=== PATIENT | female | born 1945 | race Caucasian/White ===

== ENCOUNTER 2019-06-30 15:34 | Outpatient (CLI) | payer MEDICARE, OTHER, SELFPAY ==
--- NOTE | ~2019-06-30 | XR_ITS ---
EXAMINATION: XR hip BI 2V w AP pelvis DATE: 06/30/2019 16:11 INDICATION: Bilateral hip pain TECHNIQUE: AP view of the pelvis and two views of each hip were obtained. COMPARISON: 06/05/2016 FINDINGS: Bone alignment is normal. There is no fracture. There is mild left and moderate right hip o steoarthritis. Phleboliths are noted in the pelvis. There is moderate lower lumbar spondylosis. IMPRESSION: 1. Mild left and moderate right hip osteoarthritis without acute findings. Reviewed, dictated and finalized at location A.
== END 2019-06-30 15:35 | disposition home or self-care (01) ==
LOC: ANHIMG 15:39
PROVIDERS: PCP Family Medicine; Visit Provider Family Medicine
DX: M16.0 Bilateral primary osteoarthritis of hip (principal)
CPT/HCPCS: 73521

== ENCOUNTER 2019-07-24 11:47 | Observation (INO) | payer MEDICARE, OTHER, SELFPAY ==
[2019-07-24] VITALS (10 sets, daily range): BP systolic 104–166; BP diastolic 50–91; PULSE 58–82; RESP 16–20; TEMP 36–36.6; O2SAT 95–99; BMI 30.8
--- NOTE | ~2019-07-24 | CT_ITS ---
EXAMINATION: CTA brain carotid DATE: 07/24/2019 14:35 INDICATION: Confusion. TECHNIQUE: Computed tomographic angiography (CTA) of the head was performed without and with 100 mL O [id number] intravenous contrast. CTA of the neck was performed with intravenous contrast. Automated exposure control and iterative reconstruction technique were employed. The dose-length product was 1 521.89 mGy-cm. Maximum intensity projection and volume rendered 3D-reconstructions were created by tomas leon technologist on a separate workstation. COMPARISON: Head CT 02/16/2019, brain MRI 09/19/2018 FINDINGS: HEAD CTA: There is no intracranial hemorrhage, acute infarction, or abnormal intracranial mass lesion . The ventricles are normal in size. The paranasal sinuses are clear. The mastoid air cells are jc l. The orbits are normal. Left vertebral artery is dominant. There is no significant stenosis of basi lar artery or the right posterior cerebral arteries. There is no significant stenosis of the intracra nial internal carotid arteries or anterior or middle cerebral arteries. Anterior communicating artery is normal. Left posterior communicating artery is normal. A right posterior communicating artery is not identified. There is no aneurysm. NECK CTA: There is mild stenosis of proximal left subclavian artery. There is no significant stenosis of the vertebral arteries. There is mild plaque in the proximal internal carotid arteries. There is 0% stenosis of the proximal right internal carotid artery relative to normal distal artery lumen jessica meter (NASCET criteria). There is 0% stenosis of the proximal left internal carotid artery relative t o normal distal artery lumen diameter. There is moderate cervical spondylosis. IMPRESSION: 1. Normal brain. No aneurysm or significant intracranial arterial stenosis. 2. 0% stenosis of the proximal internal carotid arteries relative to normal distal artery lumen diame ters (NASCET criteria). Reviewed, dictated and finalized at location A. IMPRESSION: 1. Normal brain. No aneurysm or significant intracranial arterial stenosis. 2. 0% stenosis of the proximal internal carotid arteries relative to normal dis jose manuel artery lumen diameters (NASCET criteria).
--- NOTE | ~2019-07-24 | MR_ITS ---
EXAMINATION: MR brain/brain stem wo/w con DATE: 07/25/2019 13:13 INDICATION: Confusion. Cerebrovascular accident. TECHNIQUE: Magnetic resonance imaging (MRI) of the brain and brainstem was performed without with 15 mL MultiHance intravenous contrast. Sequences included sagittal and axial T1-weighted FSE, axial diff usion-weighted FS EPI, axial T2*-weighted GRE, axial T2-weighted FLAIR Propeller, and axial T2-weight ed Propeller. Postcontrast sequences included axial and coronal T1-weighted FSE. Apparent diffusion c oefficient (ADC) maps were created. COMPARISON: Brain MRI 09/19/2018 FINDINGS: There are scattered areas of nonspecific increased T2-weighted signal intensity in the cere bral white matter, which is within normal limits for the patient's age. There is no intracranial hemo rrhage, acute infarction, or abnormal intracranial mass lesion. The ventricles are normal in size. Th e mastoid air cells are normal. There is mild mucosal thickening in the ethmoid sinuses. The orbits a re normal. IMPRESSION: 1. Normal brain. Reviewed, dictated and finalized at location A. IMPRESSION: 1. Normal brain.
--- NOTE | 2019-07-24 13:26 | ECG_ITS ---
Measurements Intervals [place] Rate: 66 P: 47 TX: 154 QRS: -20 QRSD: 131 T: 22 QT: 410 QTc: 431 Interpretive Statements SINUS RHYTHM INTRAVENTRICULAR CONDUCTION DELAY LEFT VENTRICULAR HYPERTROPHY AND ST-T CHANGE BORDERLINE T WAVE ABNORMALITY- ANT/INF LEADS BORDERLINE ECG Electronically Signed On 07-24-2019 14:25:50 CDT by Abdoulaye Wiseman D.O.
--- NOTE | 2019-07-24 13:38 | ED.AMS ---
HPI - Altered Mental Status General Chief Complaint: Altered Mental Status Stated Complaint: not acting right Time Seen by Provider: 07/24/19 13:31 History of Present Illness HPI narrative: Patient presents with her sister for episode of confusion today. Started sometime before 11:00 as the sister waited outdoors for the patient to come out for an outing. When she did not come out the sister went into the garage where the patient was looking for something but could not identify what she was looking for. The sister reminded her that they were going strawberry picking and they got in the car. At the strawberry picking she also did not recognize where she was or understand what she was doing. Not until she got home that she come back to full consciousness. She had been worked up for TIA before with her neurologist Dr. Rogers. She has Parkinson's disease. She does not smoke drink or do drugs. He is not on any psychiatric medications. Related Data Home Medications Medication Instructions Recorded Confirmed Linzess 145 mcg PO DAILY 02/16/19 07/24/19 carbidopa-levodopa 1 tablet PO HS 02/16/19 07/24/19 carbidopa-levodopa 2 tablet PO 6XD 02/16/19 07/24/19 cholecalciferol (vitamin D3) 1,000 unit PO DAILY 02/16/19 07/24/19 [Vitamin D3] cyanocobalamin (vitamin B-12) 1,000 mcg IM MONTHLY 02/16/19 07/24/19 ropinirole 2 mg PO 6XD 02/16/19 07/24/19 sennosides [senna] 17.2 mg PO HS 02/17/19 07/24/19 midodrine 5 mg tablet 5 mg PO TID tablet 06/22/19 07/24/19 acetaminophen [Tylenol Extra 1,000 mg PO TID PRN 07/24/19 07/24/19 Strength] celecoxib 100 mg PO BID 07/24/19 07/24/19 Allergies Allergy/AdvReac Type Severity Reaction Status Date / Time No Known Allergies Allergy Verified 07/24/19 12:16 Review of Systems Review of Systems: Narrative: CONSTITUTIONAL: Denies fever, chills, or sweats. EYES: Denies visual changes, redness, or discharge. ENT: Denies rhinorrhea, congestion, sore throat, or otalgia. CARDIOVASCULAR: Denies chest pain, palpitations, or edema. RESPIRATORY: Denies cough or dyspnea. GASTROINTESTINAL: Denies abdominal pain, nausea, vomiting, or diarrhea. GENITOURINARY: Denies dysuria or hematuria. SKIN: Denies rash or itching. MUSCULOSKELETAL: Denies back pain, joint pain, or myalgia. NEUROLOGIC: Denies headache, numbness, or weakness. PSYCHIATRIC: Denies anxiety or depression. [facility] Past Medical History Medical History Anemia Anxiety Arthritis Congestive heart failure Diastolic Constipation Constipation by delayed colonic transit Cystocele Depression Gall bladder disease GERD (gastroesophageal reflux disease) History of GI bleed History of kidney stones History of rectal polyps Hx of hypotension Hx of Parkinson's disease Hypothyroidism IBS (irritable bowel syndrome) Orthostatic hypotension Osteoporosis Shaking palsy TIA (transient ischemic attack) UTI (urinary tract infection) Vaginal vault prolapse Surgical History Surgical History History of appendectomy History of bladder surgery History of bunionectomy DAVID History of cholecystectomy History of hysterectomy History of local excision of skin lesion History of rectal polypectomy Family History Family History (Updated 07/24/19 @ 18:45 by Monica Redding RN) Mother Carcinoma of colon Father Family history of coronary artery disease Sibling Family history of malignant neoplasm of breast Other Breast cancer Social History Social History Social History: The patient lives alone. She has been since 2007. Her daughter Indigo who is a nurse and lives in [place] is her durable power erisa attorney for healthcare. The patient is a full code. 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 She no longer has the rental propertie
[2019-07-24 13:40] LABS: Basophils Percent Auto 0.7 % (0.2-1.2); Eosinophils Percent Auto 0.2 % (0-4.4); Hematocrit 36.4 % (37.0-47.0); Hemoglobin 12.4 g/dL (12.0-15.0); Immature Granulocyte Absolute 0.01 K/mm3 (0.00-0.031); Immature Granulocyte Percent A 0.2 % (0-0.5); Lymphocytes Absolute Auto 0.82 K/mm3 (0.9-3.2); Lymphocytes Percent Auto 18.6 % (18.3-44.2); Mean Corpuscular HGB Conc 34.1 g/dl (32-36); Mean Corpuscular Hemoglobin 33.2 pg (26-34); Mean Corpuscular Volume 97.3 fl (80-100); Mean Platelet Volume 10.5 fl (7.4-10.4); Monocytes Absolute Auto 0.3 K/mm3 (0.1-0.6); Monocytes Percent Auto 6.6 % (2.6-8.5); Neutrophils Absolute Auto 3.2 K/mm3 (1.3-6.7); Neutrophils Percent Auto 73.7 % (45.5-73.1); Platelet Count Result 207 k/mm3 (150-375); Red Blood Count 3.74 M/mm3 (4.2-5.4); Red Cell Distribution Width 12.2 % (11.5-14.5); White Blood Count 4.4 K/mm3 (4.5-10.0)
[2019-07-24 13:44] LABS: Add Urine Microscopic? YES; Appearance Urine Clear (Clear); Bacteria Urine Trace /hpf; Bilirubin Urine Negative (Negative); Blood Urine 1+ (Negative); Color Urine Yellow (Yellow); Glucose Urine UA Negative (Negative); Ketones Urine Trace mg/dL (Negative); Leukocyte Esterase Ur 1+ LEU/UL (Negative); Mucus Urine Rare /lpf; Nitrate Urine Negative (Negative); Protein Urine Negative (Negative); Specific Grav Ur 1.011 (1.001-1.035); Squamous Epithelial Cell Urine Many /hpf (Few); Transitional Epi Cells Urine Rare /hpf (None Seen)
[2019-07-24 13:52] LABS: Albumin Level 4.3 g/dL (3.5-5.1); Alkaline Phosphatase 121 U/L (38-126); Aspartate Amino Transferase 16 U/L (14-36); Blood Urea Nitrogen 24 mg/dL (7-17); Calcium 9.3 mg/dL (8.4-10.2); Carbon Dioxide 30 mmol/L (22-30); Chloride 99 mmol/L (98-107); Estimated CRCL calculation 45 ml/min; Estimated Glomerular Filt Rate 55; Glucose 84 mg/dL (65-105); Potassium 3.7 mmol/L (3.4-5.0); Sodium 133 mmol/L (137-145)
[2019-07-24 14:03] LABS: Ethanol < 10 mg/dL (<10)
[2019-07-24 14:06] LABS: Alanine Aminotransferase < 6 U/L (4-35)
[2019-07-24 14:41] LABS: Amphetamine Screen Urine Negative (Negative); Barbiturate Screen Urine Negative (Negative); Benzodiazepines Screen Urine Negative (Negative); Cannabinoid Screen Urine Negative (Negative); Cocaine Screen Urine Negative (Negative); Methadone Screen Urine Negative (Negative); Opiate Screen Urine Negative (Negative); Phencyclidine Screen Urine Negative (Negative)
[2019-07-24] MEDS: ASPIRIN 81 MG CHEWABLE TABLET 324 MG PO (15:25)
--- NOTE | 2019-07-24 16:52 | PC.NURSE ---
pt had COVID testing completed 07/21/19. It was negative - informed lead warehouse associate
--- NOTE | 2019-07-24 17:20 | PC.NURSE ---
quan glass of water without coughing, gagging or choking. quan procedure well
--- NOTE | 2019-07-24 17:35 | PC.NURSE ---
This patient, Karyna Edmonds, was admitted to IMU Room 231-01. Patient/family oriented to hospital policies and general routines including ID bracelet, bed and alarms, visiting hours, pain management, procedures, bathroom and other care routines, personal items, smoking policy, room service/diet, and visiting hours. Valuables list has been completed. Information on how to activate the Rapid Response Team has been discussed. Patient/Family are encouraged to report perceived risks to care and to ask questions if they do not understand what they are told or what they should do.
--- NOTE | 2019-07-24 20:44 | PM.IMHP ---
H&P: HPI History of Present Illness Chief complaint: TIA Narrative: Karyna Edmonds is a 74 year old female the patient had a witnessed bout of confusion today. The patient started today around 11:00 a.m. when her sister was awaiting outside for her to come out for a hour ring. The patient did not come out in the sister went to the ground where the patient was looking for something but could not decide which she was looking for. She did remember. The sister reminder that they are gone stroke were picking in the get in the car. The patient and her sister went to the place where there specific strawberries but the placed was closed down and the patient did not recognize what they were doing a remember what they are doing. She was not her normal self. She has a history of Parkinson's and she has had TIAs in the past she is a smoker drinker do any drugs. She has not had any previous psychiatric medications. The patient does have tremors. The patient had a head and neck CTA which shows a normal brain no aneurysm or significant intracranial arterial stenosis. 0% stenosis in the internal carotid arteries. Was intact. Patient is back to baseline by time she came to the hospital. Patient was started on an aspirin. Neurology has been consulted and she sees Dr. Winston. It was suggested that the patient be admitted to the hospital overnight for possible TIA versus a stroke. Date of service 07/24/2019 patient was tested for COVID on 07/21/2019 which was found to be negative. Review of Systems Review of Systems: Narrative: All systems reviewed & are unremarkable except as noted in HPI and below Constitutional: Constitutional: Reports as per HPI and Reports no additional constitutional complaints Eyes: Eyes: Reports as per HPI and Reports no additional eye complaints ENT: Reports system reviewed and no additional complaints, except as documented and Reports Normal hearing present Cardiovascular: Cardiovascular: Reports no additional cardiovascular complaints Respiratory: Respiratory: Reports no additional respiratory complaints and Reports no additional respiratory complaints Gastrointestinal: Gastrointestinal: Reports as per HPI and Reports no additional gastrointestinal complaints Musculoskeletal: Musculoskeletal: Reports no additional musculoskeletal complaints Integumentary/Breasts: Skin/Breast: Reports system reviewed and no additional complaints, except as docu and Reports as per HPI Neurologic: Reports system reviewed and no additional complaints, except as documented, Reports as per HPI and Reports Normal hearing present Psychiatric: Psychiatric: Reports no additional psychiatric complaints and Reports as per HPI Endocrine: Endocrine: Reports no additional endocrine complaints Hematologic/Lymphatic: Hematologic/Lymphatic: Reports no additional hematologic/lymphatic complaints Allergic/Immunologic: Allergic/Immunologic: Reports no additional allergic/immunologic complaints [facility] Past Medical History Medical History Anemia Anxiety Arthritis Congestive heart failure Diastolic Constipation Constipation by delayed colonic transit Cystocele Depression Gall bladder disease GERD (gastroesophageal reflux disease) History of GI bleed History of kidney stones History of rectal polyps Hx of hypotension Hx of Parkinson's disease Hypothyroidism IBS (irritable bowel syndrome) Orthostatic hypotension Osteoporosis Shaking palsy TIA (transient ischemic attack) UTI (urinary tract infection) Vaginal vault prolapse Surgical History Surgical History History of appendectomy History of bladder surgery History of bunionectomy DAVID History of cholecystectomy History of hysterectomy History of local excision of skin lesion History of rectal polypectomy Family History Family History (Reviewed 07/24/19 @ 20:48 by Maryam Julian
[2019-07-25] VITALS (13 sets, daily range): BP systolic 103–139; BP diastolic 47–77; PULSE 60–78; RESP 18–20; TEMP 35.8–36.4; O2SAT 96–100
--- NOTE | 2019-07-25 | ECHO_ITS ---
Patient Info Name: Karyna Edmonds Age: 74 years : 1945 Gender: Female Ht: 63 in Wt: 170 lbs BSA: 1.88 m2 HR: 77 bpm BP: 132 / 66 mmHg Heart Rhythm: Sinus Rhythm Technical Quality: Good Exam Date: 07/25/2019 9:25 AM Exam Location: [facility] Pulmonary Patient Status: Inpatient Admit Date: 07/24/2019 Staff Ordering Physician: Maryam Wheeler NP Attenuator: Terrell Peraza RDCS Attending Provider: Lidia Canela PA-C Referring Physician: Summer CASEY; Exam Type: CA echo doppler color flow Study Info Indications R01.1 - Cardiac murmur, unspecified Complete two-dimensional, color flow and Doppler transthoracic echocardiogram is performed. Strain analysis performed. History/Risk Factors Murmur; possible TIA, HFpEF, HoTN, anemia. Summary 1. Normal LV size, moderate LVH, normal LV systolic function, EF 55-60%. GLS-16.7. Grade 1 diastolic dysfunction. Mild left atrial enlargement. Mild mitral annular calcification. Trace MR. Aortic valve sclerosis with mild stenosis, CLEMENTINA 2.1 cm2, mild aortic regurgitation. Trace TR, RVSP 35 mmHg. Left Ventricle Left ventricular chamber dimension is normal. Left ventricular systolic function is normal, estimated at 55-60%. There is moderately increased left ventricular wall thickness. Left ventricular septal wall motion is normal. The left ventricular diastolic function is grade I diastolic dysfunction. Right Ventricle Right ventricular chamber dimension is normal. Right ventricular systolic function is normal. Left Atria Left atrial chamber dimension is mildly enlarged. Right Atria Right atrial chamber dimension is normal. Aortic Valve There is mild aortic valve sclerosis. There is mild aortic valve stenosis with a peak velocity of 207 cm/s, mean gradient of 8 mmHg, and aortic valve area of 2.1 cm2. There is mild aortic valve regurgitation. Pulmonic Valve The pulmonic valve is normal. There is trace pulmonic regurgitation. Mitral Valve The mitral valve has normal leaflets. There is trace mitral valve regurgitation. The mitral valve annulus is mildly calcified. Tricuspid Valve The tricuspid valve leaflets are normal. There is trace tricuspid valve regurgitation. Mild pulmonary hypertension, estimated pulmonary arterial systolic pressure is 35 mmHg. Pericardium/Pleural The pericardium appears normal. There is no pericardial effusion. Inferior Vena Cava Normal inferior vena cava with >50% collapse upon inspiration consistent with Empty right atrial pressure, 5 mmHg. Aorta The aortic root size at the sinus of Valsalva is normal. The prox ascending aorta size is normal. Left Ventricular Outflow Tract Name Value Normal LVOT 2D LVOT Diameter 1.9 cm LVOT Doppler LVOT Peak Gradient 7 mmHg LVOT Mean Gradient 4 mmHg LVOT VTI 24 cm LVOT VTI/AV VTI Ratio 0.7 LVOT Stroke Volume 70 ml LVOT CO 5.3 l/min LVOT CI
[2019-07-25] MEDS: CARBIDOPA/LEVODOPA 25/100 MG TABLET 2 TABLET PO ×4 (05:54→15:38)
[2019-07-25] MEDS: LEVOTHYROXINE SODIUM 100 MCG TABLET PO (05:54)
[2019-07-25] MEDS: MIDODRINE HCL 2.5 MG TABLET 5 MG PO ×3 (08:51→15:38)
[2019-07-25] MEDS: PANTOPRAZOLE SOD SESQUIHYDRATE 20 MG TAB PO (08:52)
[2019-07-25] MEDS: CELECOXIB 100 MG CAPSULE PO (08:52)
[2019-07-25] MEDS: Linaclotide [Linzess] 145 MCG CAPSULE 145 EACH PO (08:52)
[2019-07-25] MEDS: FOLIC ACID 1 MG TABLET PO (08:53)
[2019-07-25] MEDS: CHOLECALCIFEROL 1,000 UNIT TABLET 1000 UNITS PO (08:53)
[2019-07-25 11:33] LABS: Blood Urea Nitrogen 18 mg/dL (7-17); Calcium 9.6 mg/dL (8.4-10.2); Carbon Dioxide 30 mmol/L (22-30); Chloride 100 mmol/L (98-107); Estimated CRCL calculation 44 ml/min; Estimated Glomerular Filt Rate 55; Glucose 110 mg/dL (65-105); Potassium 3.7 mmol/L (3.4-5.0); Sodium 137 mmol/L (137-145)
[2019-07-25 12:41] LABS: Folic Acid > 20.0 ng/mL (2.76->20)
[2019-07-25 12:45] LABS: Thyroid Stimulating Hormone Reflex 0.244 uIU/mL (0.465-4.68)
[2019-07-25] MEDS: ASPIRIN 81 MG CHEWABLE TABLET PO (15:30)
--- NOTE | 2019-07-25 16:55 | WPDNEURCNPN ---
Assessment and Plan Assessment and plan (1) Brain TIA: Code(s): G45.9 - Transient cerebral ischemic attack, unspecified Status: Acute (2) Orthostatic hypotension: Code(s): I95.1 - Orthostatic hypotension Status: Chronic (3) Hx of Parkinson's disease: Code(s): Z86.69 - Personal history of other diseases of the nervous system and sense organs Status: Chronic (4) Anemia: Code(s): D64.9 - Anemia, unspecified Status: Chronic (5) Anxiety: Code(s): F41.9 - Anxiety disorder, unspecified Status: Chronic (6) Hypothyroidism: Code(s): E03.9 - Hypothyroidism, unspecified Status: Chronic (7) Congestive heart failure: Code(s): I50.9 - Heart failure, unspecified Status: Chronic (8) Altered mental status: Code(s): R41.82 - Altered mental status, unspecified Status: Acute Additional Plan I discussed with her and her daughter at length about the etiology of the episodes and the differential diagnosis different options were discussed as for the treatment is concerned and I shared with her again and her daughter about the use of DBS for which the patient has been reluctant in the past in any event at this point I will cut back her carbidopa levodopa to 4 times a day and rest of the medications will stay the same and she will be in touch with my office and keep me posted All option risk in the benefits of the multiple medications on discussed with her in detail and she and her daughter understood it well Consult date: 07/25/19 Time Seen: 16:00 HPI: Karyna Edmonds is a 74 year old female the patient was admitted what sound like transient global amnesia which resolved in short brief time the workup has been unrevealing particularly the MRI brain is negative CTA of the brain the carotid is negative echocardiogram is unremarkable the patient is back to her baseline however showing signs of dyskinetic movements which is the most likely side effect from the carbidopa levodopa which I shared with her The patient denies any headache nausea vomiting chest pain shortness of breath fever chills sore throat Review of Systems Review of Systems: All systems reviewed & are unremarkable except as noted in HPI and below PMFSH Past Medical History Medical History Anemia Anxiety Arthritis Congestive heart failure Diastolic Constipation Constipation by delayed colonic transit Cystocele Depression Gall bladder disease GERD (gastroesophageal reflux disease) History of GI bleed History of kidney stones History of rectal polyps Hx of hypotension Hx of Parkinson's disease Hypothyroidism IBS (irritable bowel syndrome) Orthostatic hypotension Osteoporosis Shaking palsy TIA (transient ischemic attack) UTI (urinary tract infection) Vaginal vault prolapse Surgical History Surgical History History of appendectomy History of bladder surgery History of bunionectomy DAVID History of cholecystectomy History of hysterectomy History of local excision of skin lesion History of rectal polypectomy Family History Family History Mother Carcinoma of colon Father Family history of coronary artery disease Sibling Family history of malignant neoplasm of breast Other Breast cancer Social History Social History Social History: The patient lives alone. She has been since 2007. Her daughter Indigo who is a nurse and lives in [place] is her durable power senior trial attorney for healthcare. The patient is a full code. 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 Lifelong nonsmoker. No alcohol or illicit drugs. Smoking status: Never smoker Alcohol intake: never [place]
--- NOTE | 2019-07-25 17:43 | PM.DS ---
DS: Diagnosis Admitting Diagnosis Admitting Diagnosis: Transient cerebral ischemic attack, unspecified Discharge Diagnosis (1) Brain TIA: Code(s): G45.9 - Transient cerebral ischemic attack, unspecified Status: Acute Assessment and Plan: The patient was started on aspirin. Neurology has been consulted. Patient has Parkinson's which may be this is part of it. (2) Hx of Parkinson's disease: Code(s): Z86.69 - Personal history of other diseases of the nervous system and sense organs Status: Chronic Assessment and Plan: Continue with carbidopa levodopa. (3) Orthostatic hypotension: Code(s): I95.1 - Orthostatic hypotension Status: Chronic Assessment and Plan: The patient is on midodrine. Continue with this. (4) Anemia: Code(s): D64.9 - Anemia, unspecified Status: Chronic Assessment and Plan: Continue with folic acid. (5) Anxiety: Code(s): F41.9 - Anxiety disorder, unspecified Status: Chronic Assessment and Plan: P.r.n. Ativan. (6) Hypothyroidism: Code(s): E03.9 - Hypothyroidism, unspecified Status: Chronic Assessment and Plan: Continue with levothyroxine. (7) Congestive heart failure: Code(s): I50.9 - Heart failure, unspecified Status: Chronic Assessment and Plan: Echo has been ordered. Last EF I saw was under stress test 54%. Patient is not on any diuretics. (8) Syncope: Code(s): R55 - Syncope and collapse Status: Acute Assessment and Plan: History of syncope due to orthostatic blood pressure. (9) Altered mental status: Code(s): R41.82 - Altered mental status, unspecified Status: Acute Assessment and Plan: Could possibly be from Parkinson's or possible TIA versus CVA patient will continue with workup tomorrow. She is on aspirin at this time. DS: Summary Hospital Course Reason for hospitalization: Patient is a 74-year-old woman with a history of Parkinson's disease, who presented to the emergency department with bouts of confusion prior to arrival. Initial vitals Showed temperature of 97.3?, blood pressure 131/78, respiratory rate 16, heart rate 66, oxygen saturation 99% on room air. Labs showed slight neutropenia at 4.4 which is her baseline, CMP showed hyponatremia at 1:33 a.m., creatinine 1.0, BUN at 24 otherwise normal. Patient's TSH was slightly low at 0.244 but her free T and total T3 were normal. Normal vitamin B12, normal folic acid. CTA head and neck showed normal brain, no aneurysm or significant intracranial artery stenosis. 0% stenosis of the proximal internal carotid arteries relative to normal distal artery lumen diameters (NASCET criteria). The patient was admitted into the hospital for a neurology consult and further evaluation and workup for TIA versus CVA. Patient's echocardiogram showed normal ventricular systolic function with an EF of 55-60. Moderately increased LV wall thickness. LV diastolic grade 1. No other acute abnormality. MRI showed normal brain. Dr. Rogers the patient's neurologist evaluated the patient and feels that her symptoms could be from too much carbidopa levodopa and he will decrease her dosing from 6 times a day to 4 times a day. He will not adjust any other medications at this time and otherwise feels she is at her baseline and stable for discharge. The patient understands and agrees with the plan all questions answered. Status at Discharge Cognitive/behavioral status at discharge: Stable, improved. Time Spent with Patient Time attestation: Total time spent providing and/or coordinating discharge services: Time spent: Greater than 30 minutes Exam Narrative: Exam Narrative: General: 74-year-old woman sitting up on the side of the bed. She is sitting still while getting her blood pressure taken, but once she is sitting on her own she begins to become fidgity. A
[2019-07-25 19:42] LABS: Free T4 Free Thyroxine Reflex 1.54 ng/dL (0.78-2.19)
[2019-07-25 21:49] LABS: Total Triiodothyronine (T3) 1.23 NG/ML (0.97-1.69)
== END 2019-07-25 16:35 | disposition home or self-care (01) ==
LOC: ANHED 15:40 → ANHIMU 07-25 00:09
PROVIDERS: Admitting Provider Hospitalist; Emergency Provider Emergency Medicine; PCP Family Medicine; Visit Provider Physician Assistant
DX: G45.9 Transient cerebral ischemic attack, unspecified (principal); G20 Parkinson's disease; I95.1 Orthostatic hypotension; D64.9 Anemia, unspecified; F41.9 Anxiety disorder, unspecified; E03.9 Hypothyroidism, unspecified; I50.9 Heart failure, unspecified; R41.82 Altered mental status, unspecified; K21.9 Gastro-esophageal reflux disease without esophagitis; K58.9 Irritable bowel syndrome, unspecified; Z79.899 Other long term (current) drug therapy
CPT/HCPCS: 36415; 51701; 70496; 70498; 70553; 80048; 80053; 80307; 81001; 82607; 82746; 84439; 84443; 84480; 85025; 93005; 93306; 99285; A9270; A9577; G0378; Q9967

== ENCOUNTER 2019-10-05 12:39 | Outpatient (CLI) | payer MEDICARE, OTHER, SELFPAY ==
--- NOTE | ~2019-10-05 | MR_ITS ---
EXAMINATION: MR brain/brain stem wo/w con EXAM DATE: 10/05/2019 14:14 INDICATION: Cervicalgia, paresthesia of skin. Tinnitus. Cervicalgia. TECHNIQUE: Magnetic resonance imaging (MRI) of the brain/brain stem obtained without contrast. Sagit jose manuel T1, axial diffusion, gradient echo (T2*), T1, T2, FLAIR sequences obtained. Patient was then inj ected with 15 cc intravenous Multihance contrast. Axial and coronal postcontrast T1 weighted sequence s obtained. There is no prior study for comparison. FINDINGS: There are no areas of restricted diffusion to suggest acute infarction. There is no acute hemorrhage seen on the T2*, a hemosiderin sensitive sequence. No intraparenchymal brain mass. The ve ntricles are normal in size. There are no extra-axial collections. Flow voids are seen in the cereb ral arteries on the T2-weighted sequences consistent with their expected patency. The orbits are unr emarkable. Soft tissue is unremarkable. IMPRESSION: 1. Unremarkable brain MRI examination. Reviewed, dictated and finalized at location A.
--- NOTE | ~2019-10-05 | MR_ITS ---
EXAMINATION: MR cervical spine wo con DATE: 10/05/2019 14:05 INDICATION: Neck pain. TECHNIQUE: Magnetic resonance imaging (MRI) of the cervical spine was performed without intravenous c ontrast. Sequences included sagittal T2-weighted FSE, sagittal T2-weighted FS FSE, sagittal T1-weight ed FSE, axial MERGE, and axial T2-weighted FSE. COMPARISON: Cervical spine MRI 04/29/2018 FINDINGS: There is 2 mm retrolisthesis of C4 on C5. Vertebral body heights are normal. There is moder ately decreased disc height from C4-C5 through C6-C7. The spinal cord signal intensity is normal. The following disc levels are specifically discussed: C2-C3: The disc does not extend beyond the endplate margin. There is no uncovertebral joint osteoarth ritis. There is moderate right and mild left facet joint osteoarthritis. There is no neural foraminal stenosis. There is no central canal stenosis. C3-C4: The disc does not extend beyond the endplate margin. There is mild left uncovertebral joint os teoarthritis. There is severe right and moderate left facet joint osteoarthritis. There is no neural foraminal stenosis. There is no central canal stenosis. C4-C5: The disc is bulging. There is moderate right and severe left uncovertebral joint osteoarthriti s. There is moderate right and severe left facet joint osteoarthritis. There is mild right and modera te left neural foraminal stenosis. There is mild central canal stenosis. C5-C6: The disc is bulging. There is moderate bilateral uncovertebral joint osteoarthritis. There is moderate bilateral facet joint osteoarthritis. There is mild bilateral neural foraminal stenosis. The re is mild central canal stenosis. C6-C7: The disc is bulging. There is mild right and moderate left uncovertebral joint osteoarthritis. There is no facet joint osteoarthritis. There is mild left neural foraminal stenosis. There is mild central canal stenosis. C7-T1: The disc does not extend beyond the endplate margin. There is no uncovertebral joint osteoarth ritis. There is mild bilateral facet joint osteoarthritis. There is mild left neural foraminal stenos is. There is no central canal stenosis. IMPRESSION: 1. Moderate cervical spondylosis, stable from 04/29/2018. Reviewed, dictated and finalized at location A.
[2019-10-05 13:32] LABS: Estimated Glomerular Filt Rate 49
== END 2019-10-05 12:40 | disposition home or self-care (01) ==
PROVIDERS: PCP Family Medicine; Visit Provider Psychiatry & Neurology Neurology
DX: R20.2 Paresthesia of skin (principal); M47.892 Other spondylosis, cervical region
CPT/HCPCS: 36415; 70553; 72141; A9577

== ENCOUNTER 2020-01-21 17:13 | Emergency (ER) | payer MEDICARE, OTHER, SELFPAY ==
--- NOTE | ~2020-01-21 | CT_ITS ---
EXAMINATION: CT abdomen pelvis w con INDICATION: Epigastric abdominal pain TECHNIQUE: Computed tomographic images of the abdomen and pelvis were obtained after the administrati on of 100 cc of Omnipaque 350 intravenous contrast. The dose-length product (DLP) was 562.40 mGy-cm. Automated exposure control and iterative reconstruction technique were employed. COMPARISON: 09/18/2018 FINDINGS: Minimal dependent atelectasis is present in the lung bases. The heart size is normal. The g allbladder is surgically absent. There is mild enlargement of the common bile duct and central intrah epatic ducts which is likely due to post cholecystectomy state. Punctate calcifications in an otherwi se normal spleen likely represent healed granulomatous disease. Punctate calcifications in an otherwi se normal spleen likely represent healed granulomatous disease. The liver, pancreas, adrenal glands, and right kidney are normal. There is a 4 mm nonobstructing stone of the left kidney. No pathological ly enlarged abdominal or pelvic lymph nodes are identified. There is no free intraperitoneal gas or e vidence of bowel obstruction. There are changes of right hemicolectomy. A large volume of colonic sto ol is present. There is moderate lumbar spondylosis. IMPRESSION: 1. No CT correlate for the patient's symptoms. 2. Constipation. 3. Nonobstructing left nephrolithiasis. Reviewed, dictated and finalized at location A. ECTOR MISSILE
[2020-01-21 17:15] VITALS: BP 169/85; PULSE 80; RESP 20; TEMP 36.6; O2SAT 97
[2020-01-21 17:34] LABS: Basophils Percent Auto 0.6 % (0.2-1.2); Eosinophils Absolute Auto 0.1 K/mm3 (0-0.3); Eosinophils Percent Auto 0.9 % (0-4.4); Hematocrit 42.8 % (37.0-47.0); Hemoglobin 14.6 g/dL (12.0-15.0); Immature Granulocyte Absolute 0.01 K/mm3 (0.00-0.031); Immature Granulocyte Percent A 0.2 % (0-0.5); Lymphocytes Absolute Auto 1.77 K/mm3 (0.9-3.2); Lymphocytes Percent Auto 33.2 % (18.3-44.2); Mean Corpuscular HGB Conc 34.1 g/dl (32-36); Mean Corpuscular Hemoglobin 33.9 pg (26-34); Mean Corpuscular Volume 99.3 fl (80-100); Mean Platelet Volume 9.7 fl (7.4-10.4); Monocytes Absolute Auto 0.4 K/mm3 (0.1-0.6); Monocytes Percent Auto 6.6 % (2.6-8.5); Neutrophils Absolute Auto 3.1 K/mm3 (1.3-6.7); Neutrophils Percent Auto 58.5 % (45.5-73.1); Platelet Count Result 184 k/mm3 (150-375); Red Blood Count 4.31 M/mm3 (4.2-5.4); Red Cell Distribution Width 12.5 % (11.5-14.5); White Blood Count 5.3 K/mm3 (4.5-10.0)
[2020-01-21 17:54] LABS: Add Urine Microscopic? YES; Appearance Urine Clear (Clear); Bacteria Urine Trace /hpf; Bilirubin Urine Negative (Negative); Blood Urine 1+ (Negative); Color Urine Yellow (Yellow); Glucose Urine UA Negative (Negative); Ketones Urine Negative (Negative); Leukocyte Esterase Ur Trace LEU/UL (Negative); Nitrate Urine Negative (Negative); Protein Urine Negative (Negative); RBC Urine 0-2 /hpf (0-2); Specific Grav Ur 1.012 (1.001-1.035); Squamous Epithelial Cell Urine Rare /hpf (Few); Urobilinogen Urine Negative mg/dL (<2.0); WBC Urine 0-3 /hpf
[2020-01-21 17:55] LABS: Albumin Level 4.9 g/dL (3.5-5.1); Alkaline Phosphatase 135 U/L (38-126); Anion Gap 10 mmol/L (8-16); Aspartate Amino Transferase 20 U/L (14-36); Bilirubin,Total 0.8 mg/dL (0.2-1.3); Blood Urea Nitrogen 20 mg/dL (7-17); Calcium 9.9 mg/dL (8.4-10.2); Carbon Dioxide 33 mmol/L (22-30); Chloride 101 mmol/L (98-107); Estimated CRCL calculation 47 ml/min; Estimated Glomerular Filt Rate > 60; Glucose 119 mg/dL (65-105); Lipase 61 U/L (23-300); Potassium 3.1 mmol/L (3.4-5.0); Sodium 144 mmol/L (137-145)
--- NOTE | 2020-01-21 18:12 | ED.ABDPAIN ---
HPI - Abdominal Pain General Chief Complaint: Abdominal Pain Stated Complaint: abd pain Time Seen by Provider: 01/21/20 17:31 Source: patient Mode of arrival: ambulatory Limitations: no limitations History of Present Illness HPI narrative: Patient is a 74-year-old female complaining of epigastric pain, 6 out of 10, currently denies any pain, burning, nonradiating, worse after eating x3 days. Patient also admits to nausea but denies any vomiting. Denies any diarrhea, fever or urinary symptoms. Patient denies any chest pain or shortness of breath. Patient denies back pain. Related Data Home Medications Medication Instructions Recorded Confirmed Linzess 145 mcg PO DAILY 02/16/19 12/13/19 carbidopa-levodopa 1 tablet PO HS 02/16/19 12/13/19 cholecalciferol (vitamin D3) 1,000 unit PO DAILY 02/16/19 12/13/19 [Vitamin D3] cyanocobalamin (vitamin B-12) 1,000 mcg IM MONTHLY 02/16/19 12/13/19 ropinirole 2 mg PO 6XD 02/16/19 12/13/19 sennosides [senna] 17.2 mg PO HS 02/17/19 12/13/19 midodrine 5 mg tablet 5 mg PO TID tablet 06/22/19 12/13/19 acetaminophen [Tylenol Extra 1,000 mg PO TID PRN 07/24/19 12/13/19 Strength] amantadine HCl 100 mg capsule 100 mg PO ONCE cap 12/13/19 12/13/19 clonazepam 0.5 mg tablet 0.5 mg PO DAILY 12/13/19 12/13/19 docusate sodium 100 mg capsule 100 mg PO DAILY 12/13/19 12/13/19 Allergies Allergy/AdvReac Type Severity Reaction Status Date / Time No Known Allergies Allergy Verified 01/21/20 17:36 Review of Systems Review of Systems: All systems reviewed & are unremarkable except as noted in HPI and below Constitutional: Constitutional: Denies body ache(s), Denies chills, Denies excessive sweating, Denies fatigue, Denies fever(s), Denies headache(s), Denies lethargy, Denies malaise, Denies weakness and Denies weight loss Eyes: Eyes: Denies blurry vision, Denies change in vision and Denies loss of vision ENT: Denies dizziness, Denies ear discharge, Denies headache(s), Denies lip swelling, Denies epistaxis, Denies nasal congestion, Denies neck pain, Denies throat swelling and Denies tongue swelling Cardiovascular: Cardiovascular: Denies chest pain, Denies chest pain at rest, Denies chest pain with activity, Denies diaphoresis, Denies rapid heart rate, Denies edema, Denies irregular heart rhythm, Denies lightheadedness, Denies palpitations, Denies dyspnea and Denies dyspnea on exertion Respiratory: Respiratory: Denies chest congestion, Denies cough, Denies hemoptysis, Denies dyspnea and Denies dyspnea on exertion Gastrointestinal: Gastrointestinal: Denies melena, Denies hematochezia, Denies diarrhea, Denies vomiting and Denies hematemesis Musculoskeletal: Musculoskeletal: Denies abnormal gait, Denies deformity, Denies joint swelling, Denies limited range of motion, Denies neck pain and Denies numbness Neurologic: Denies Abnormal speech present, Denies abnormal gait, Denies confusion, Denies dizziness, Denies headache(s), Denies focal weakness, Denies loss of vision, Denies numbness, Denies Other visual disturbances, Denies Sensory deficit (Neuro) and Denies weakness Psychiatric: Psychiatric: Denies confusion, Denies depression, Denies auditory hallucinations, Denies homicidal ideation and Denies suicidal ideation Endocrine: Endocrine: Denies cold intolerance, Denies excessive sweating, Denies fatigue, Denies heat intolerance and Denies palpitations Hematologic/Lymphatic: Hematologic/Lymphatic: Denies easy bleeding and Denies easy bruising Allergic/Immunologic: Allergic/Immunologic: Denies lip swelling, Denies throat swelling and Denies tongue swelling [facility] Past Medical History Medical History (Updated 01/21/20 @ 19:56 by Norm Zacarias MD) Anemia Anxiety Arthritis Congestive heart failure Diastolic Constipation Constipation by delayed colonic transit Cystocele Depression Gall bladder disease GERD (gastroesophageal reflux disease) History of GI bleed History of kidney stones History of r
[2020-01-21 18:16] LABS: Alanine Aminotransferase < 6 U/L (4-35)
[2020-01-21] MEDS: FAMOTIDINE 20 MG/2 ML VIAL IV PUSH (18:21)
[2020-01-21] MEDS: ONDANSETRON INJ 4 MG/2 ML VIAL IV PUSH (18:21)
[2020-01-21] MEDS: SODIUM CHLORIDE 0.9% IV 1,000 ML 999 ML IV CONT (18:21)
[2020-01-21 19:42] VITALS: BP 176/95; PULSE 73; RESP 19; O2SAT 97
--- NOTE | 2020-01-21 19:47 | ECG_ITS ---
Measurements Intervals Borden Rate: 72 P: 49 DC: 139 QRS: -21 QRSD: 141 T: 31 QT: 381 QTc: 418 Interpretive Statements SINUS RHYTHM INTRAVENTRICULAR CONDUCTION DELAY LEFT VENTRICULAR HYPERTROPHY WITH ST-T CHANGE MINIMAL Q WAVES- HIGH LATERAL LEADS BASELINE WANDER- V2 BORDERLINE ECG Electronically Signed On 01-22-2020 8:41:32 [employer] by Abdoulaye Wiseman D.O.
[2020-01-21 20:21] VITALS: BP 177/88; PULSE 74; RESP 18; O2SAT 99
[2020-01-21] MEDS: POTASSIUM CHLORIDE 20 MEQ PACKET (FOR LIQUID) 40 MEQ PO (20:21)
== END 2020-01-21 20:23 | disposition home or self-care (01) ==
PROVIDERS: Emergency Medicine; Emergency Provider Emergency Medicine; PCP Family Medicine
DX: K29.00 Acute gastritis without bleeding (principal); G20 Parkinson's disease; Z86.2 Personal history of diseases of the blood and blood-forming organs and certain disorders involving the immune mechanism; K21.9 Gastro-esophageal reflux disease without esophagitis; Z87.442 Personal history of urinary calculi; Z87.19 Personal history of other diseases of the digestive system; E03.9 Hypothyroidism, unspecified; K58.9 Irritable bowel syndrome, unspecified; M81.0 Age-related osteoporosis without current pathological fracture; Z86.73 Personal history of transient ischemic attack (TIA), and cerebral infarction without residual deficits; Z87.440 Personal history of urinary (tract) infections; N20.0 Calculus of kidney; K59.00 Constipation, unspecified; I45.9 Conduction disorder, unspecified; I51.7 Cardiomegaly
CPT/HCPCS: 36415; 74177; 80053; 81001; 83690; 85025; 93005; 96361; 96374; 96375; 99284; A9270; J2405; J7030; Q9967

== ENCOUNTER 2020-01-31 09:00 | Outpatient (RCR) | payer MEDICARE, OTHER, SELFPAY ==
--- NOTE | 2019-11-28 09:45 | LSVTBIG ---
OCCUPATIONAL THERAPY EVALUATION REPORT & DISCHARGE 11/28/2019 Thank you for referring Karyna Edmonds to [facility].?As described below, no skilled OT indicated at this time. Please review, sign, date and return this D/C Note ANDRES. I agree with and certify that the following plan of care is medically necessary. Referring Physician Date Referring Provider: Zak Mathews, KELLEN-STELLA *[facility] BIG Evaluation Therapy Discipline Therapy Discipline Therapy Discipline Occupational Therapy Therapy Assessment Status Assessment Status Assessment Status Evaluation Outpatient Past Medical History Neurological History Hx Parkinson's Disease Yes Cardiovascular History Hx Other Cardiac Disorders Yes: Hypotension Respiratory History Hx Respiratory Disorders No Significant History Gastrointestinal History Hx Appendectomy Yes Hx Other Gastrointestinal Disorders Yes: Constipation Genitourinary History Hx Bladder Surgery Yes Musculoskeletal History Hx Musculoskeletal Disorders No Significant History Hematological History Hx Hematological Disorders No Significant History Endocrine History Hx Hypothyroidism Yes HEENT History Hx Other HEENT Disorders Yes: Glasses Integumentary History Hx Skin Disorders No Significant History Reproductive History Hx Reproductive Disorders No Significant History Psychosocial History Hx Psychiatric Disorders No Significant History Pain History History of Any Previous or Ongoing No Significant History Instance of Pain Anesthesia History Hx Anesthesia Reactions No Significant History Evaluation Information Problem Diagnosis PD Onset about 6 years ago Subjective Information Karyna presents to Query Text:As Reported By Patient/ outpatient therapy for Family evaluation and treatment orders with the diagnosis of Parkinson's. She states that functionally she has had no decline in her independence with ADLs, household tasks, or fine motor tasks. She notes her biggest barriers to feeling well are neck pain and some balance changes. She reports that she used to go to the [facility] for aquatic classes and group classes for people with PD, which have stopped due to COVID. Pain Assessment Timing of Pain Assessment Timing of Pain Assessment Assessment Pain Scale Pain Scale Used Numeric (1 - 10) Self Report Pain Assessment Neck Reported
--- NOTE | 2019-11-28 11:40 | LSVTBIG ---
PHYSICAL THERAPY EVALUATION AND PLAN OF CARE Thank you for referring Karyna Edmonds to [facility].? The patient is scheduled to be seen for therapy? 2x/week for 4 weeks. Please review, sign, date and return this plan of care ANDRES. I agree with and certify that the following plan of care is medically necessary. Referring Physician Date Evaluation Outpatient Past Medical History Neurological History Hx Parkinson's Disease Yes Cardiovascular History Hx Other Cardiac Disorders Yes: Hypotension Respiratory History Hx Respiratory Disorders No Significant History Gastrointestinal History Hx Appendectomy Yes Hx Other Gastrointestinal Disorders Yes: Constipation Genitourinary History Hx Bladder Surgery Yes Musculoskeletal History Diagnosis PD Onset about 6 years ago Subjective Information Karyna presents to Query Text:As Reported By Patient/ outpatient therapy for Family evaluation and treatment orders with the diagnosis of Parkinson's. She states that functionally she has had no decline in her independence with ADLs, household tasks, or fine motor tasks. She notes her biggest barriers to feeling well are neck pain and some balance changes. She reports that she used to go to the [facility] for aquatic classes and group classes for people with PD, which have stopped due to COVID. She really felt as though walking in the pool was really beneficial and if that is an option she would like to continue. Also c/o of neck pain with diagnosis of arthritis in the neck. She did therapy for the neck several months ago and felt the greatest benefit was the massage and ultrasound. Self Report Pain Assessment Neck Reported Pain Level 0 Parkinson's Related History Parkinson's Related History Diagnosis/Stage Date Of Initial She began noticing temors Diagnosis about 6 years ago What Were Your Initial Symptoms Of tremors, loss of smell Parkinson's Disease? Do You Have A Tremor? Yes Describe Tremors In bilateral UEs, none at rest , these have gotten better
--- NOTE | 2019-11-28 11:56 | STOPEVAL ---
SPEECH THERAPY INITIAL EVALUATION AND DISCHARGE: Thank you for referring Karyna Edmonds to [facility] Upon completion of the evaluation, it was determined that the patient's speech, voicing, and swallowing is within functional limits; therefore no further ST is warranted at this time. I agree with the following discharge. Referring Physician Date Attending Provider: PHYSICIAN NOT ON STAFF *ST Outpatient Evaluation/Discharge Start: 11/28/19 10:55 Freq: Status: Active Protocol: Document 11/28/19 09:30 BECHERERT (Rec: 11/28/19 11:09 BECHERERT [email or web address]) Therapy Assessment Status Assessment Status Assessment Status Evaluation Outpatient Past Medical History Past Medical History Source of Past Medical History Patient Neurological History Hx Parkinson's Disease Yes: x 6 yrs Cardiovascular History Hx Other Cardiac Disorders Yes: Hypotension Respiratory History Hx Respiratory Disorders No Significant History Gastrointestinal History Hx Appendectomy Yes Hx Other Gastrointestinal Disorders Yes: Constipation Genitourinary History Hx Bladder Surgery Yes Musculoskeletal History Hx Musculoskeletal Disorders No Significant History Hematological History Hx Hematological Disorders No Significant History Endocrine History Hx Hypothyroidism Yes HEENT History Hx Other HEENT Disorders Yes: Glasses Integumentary History Hx Skin Disorders No Significant History Reproductive History Hx Reproductive Disorders No Significant History Psychosocial History Hx Psychiatric Disorders No Significant History Pain History History of Any Previous or Ongoing No Significant History Instance of Pain Anesthesia History Hx Anesthesia Reactions No Significant History Prior Level of Function Activity Level (Last 3 Months) Occupation retired Functional Cognition (Planning, Shopping Independent , Taking Medications) Cooking Yes Cleaning Yes Laundry Yes Shopping Yes Driving Yes Medications Home Meds (Include: OTC, RX, Vitamins, Sinemet 25/100 1 x 4x/day Herbals, Dose, Route,and Frequency) Sinemet 50/200 CR (1) HS; pt Query Text:Home Med Entries Will No manages her own medications Longer Recall From Past Visits. Home without difficulty; has Meds Must Be Re-entered With Each Visit. developed a very efficent system Home Setting Living Situation Alone [employer] Responsibilities Comment pt is temporarily taking care of her sister who has a broken leg but she will soon be returning to her own home Prior Swallow Level Prior Intake Method Oral
--- NOTE | 2019-12-05 09:58 | PCPTNOTE ---
Patient called & cancelled scheduled appointment this date due to not feeling well.
--- NOTE | 2019-12-27 10:57 | LSVTBIG ---
PHYSICAL THERAPY PLAN OF CARE UPDATE Thank you for referring Karyna Edmonds to [facility].? The patient is scheduled to be seen for therapy? 1x/week for 4-8 weeks. Please review, sign, date and return this plan of care ANDRES. I agree with and certify that the following plan of care is medically necessary. Referring Physician Date Progress Diagnosis PD Onset about 6 years ago Subjective Information Karyna states she is feeling Query Text:As Reported By Patient/ sluggish today. She has had Family company at her house and her sister is living with her. 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 From Floor Independent/Safe Look Behind Shoulder - Standing Shifts Weight Well Turning 360 Degrees Turns Bilateral, < 4 secs Unsupported Stance, Alternating Feet on (I)- 8 Steps in > 20 secs Stair Unsupported Tandem Stance Achieves Tandem Unilateral Leg Stance Lifts Leg/Holds > 3 secs DOSS Balance Evaluation Total Score (/56 52 points) Comments c/o neck pain with rotational activities: right cervical rotation = 50deg, left cervical rotation = 50deg - no pain; bilateral shoulder elevation: 150deg with limited thoracic mobility/extension; left shoulder ER/IR symmetrical and WNL - left IR mild tenderness to reaching behind back (putting on bra) Time Up Go (TUG) Timed Up and Go Test (TUG) (Seconds) 6 Assistive Devices None 5 Time Sit to Stand Time in Seconds 8.5 Gait Assessment 6 Minute Walk Total Distance (feet) 1,500 6 Minute Walk Gait Speed Score (feet/ 4.16 second) 6 Minute Gait Comments LE strength: grossly 4+/5 throughout except hip abduction: 3+/5 PT Clinical Summary Karyna is a 74 yo female presenting to outpatient
--- NOTE | 2020-01-16 09:46 | PCPTNOTE ---
Patient called & cancelled scheduled appointment this date due to possible exposure to covid.
--- NOTE | 2020-01-31 09:40 | LSVTBIG ---
PHYSICAL THERAPY DISCHARGE NOTE Thank you for referring Karyna Edmonds to [facility].? Please review, sign, date and return this plan of care ANDRES. I agree with and certify that the following plan of care is medically necessary. Referring Physician Date Discharge Diagnosis PD Onset about 6 years ago Subjective Information Karyna states she is feeling Query Text:As Reported By Patient/ sluggish today. She has had Family company at her house and her sister is living with her. 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 Object From Floor Independent/Safe Look Behind Shoulder - Standing Shifts Weight Well Turning 360 Degrees Turns Bilateral, < 4 secs Unsupported Stance, Alternating Feet on (I)- 8 Steps in 20 secs Stair Unsupported Tandem Stance Achieves Tandem Unilateral Leg Stance Lifts Leg/Holds 5-10 secs DOSS Balance Evaluation Total Score (/56 55 points) Comments c/o neck pain with rotational activities: right cervical rotation = 60deg, left cervical rotation = 60deg - no pain; bilateral shoulder elevation: 155deg with limited thoracic mobility/extension; left shoulder ER/IR symmetrical and WNL Time Up Go (TUG) Timed Up and Go Test (TUG) (Seconds) 6 Assistive Devices None 5 Time Sit to Stand Time in Seconds 8.5 Gait Assessment 2 Minute Walk Total Distance Walked (feet) 484 2 Minute Walk Gait Speed Score (feet/ 4.03 second) 2 Minute Walk Test Comments 1month ago = 4.16ft/second Stair Climbing Assessment Stair Climbing Assessment Stair Climbing Assistive Devices Railings Number of Steps Climbed (Steps) 4 Number of Repetitions (Repetitions) 2 Technique Alternating Steps Stair Climbing Direction Both Up and Down Stair Climbing Ability Independent Cues Needed For Stair Climbing None PT Clinical Summary Karyna
== END 2020-02-01 08:47 | disposition home or self-care (01) ==
LOC: ANHPT 09:00
PROVIDERS: PCP Family Medicine
DX: G20 Parkinson's disease (principal)
CPT/HCPCS: 92524; 92610; 97110; 97140; 97162; 97165

== ENCOUNTER → 2020-04-27 00:58 | Outpatient (CLI) | payer MEDICARE, OTHER, SELFPAY ==
[2020-04-27 19:49] LABS: SARS-CoV-2 RNA PCR Negative
== END ==
PROVIDERS: PCP Physician Assistant; Visit Provider Internal Medicine Gastroenterology
DX: Z01.812 Encounter for preprocedural laboratory examination (principal); Z20.822 Contact with and (suspected) exposure to COVID-19
CPT/HCPCS: C9803; U0003; U0005

== ENCOUNTER 2020-05-01 01:35 | Day surgery (SDC) | payer MEDICARE, OTHER, SELFPAY ==
[2020-04-10 15:10] VITALS: BMI 28.5
[2020-05-01 06:54] VITALS: BP 152/71; PULSE 69; RESP 16; TEMP 36.6; O2SAT 97; BMI 27.5
[2020-05-01] MEDS: LACTATED RINGERS 1,000 ML 150 ML IV CONT (07:00)
--- NOTE | 2020-05-01 07:20 | WPDANESEPPF ---
Anes - Initial Pre Proc Eval Procedure: Operation Date: 05/01/20 08:00 Proposed Procedures p Esophagogastroduodenoscopy - Nabil Wagner MD Date/Time: 05/01/20 07:20 Surgeon: Nabil Wagner MD Pre Op Diagnosis: Epigastric pain Patient Data Age: 74 Gender: F Height: 5 ft 3 in Weight: 70.5 kg Last Vital Signs Temp 36.6 C 05/01/20 06:54 Pulse 69 05/01/20 06:54 Resp 16 05/01/20 06:54 BP 152/71 H 05/01/20 06:54 Pulse Ox 97 05/01/20 06:54 Allergies Allergy/AdvReac Type Severity Reaction Status Date / Time No Known Allergies Allergy Verified 05/01/20 06:50 Home Medications Medication Instructions Recorded Confirmed Type carbidopa-levodopa 1 tablet PO HS 02/16/19 04/10/20 History cholecalciferol (vitamin D3) 1,000 unit PO DAILY 02/16/19 04/10/20 History [Vitamin D3] ropinirole 2 mg PO BID 02/16/19 04/10/20 History sennosides [senna] 17.2 mg PO HS 02/17/19 04/10/20 History folic acid 1 mg tablet 1 mg PO DAILY #90 tablet 05/05/19 04/10/20 Rx midodrine 5 mg tablet 5 mg PO TID PRN tablet 06/22/19 04/10/20 History acetaminophen [Tylenol Extra 1,000 mg PO TID PRN 07/24/19 04/10/20 History Strength] polyethylene glycol 3350 17 gram 17 gm PO DAILY 30 Days #30 each 10/24/19 04/10/20 Rx oral powder packet amantadine HCl 100 mg capsule 100 mg PO ONCE cap 12/13/19 04/10/20 History clonazepam 0.5 mg tablet 0.5 mg PO DAILY 12/13/19 04/10/20 History famotidine 20 mg tablet 20 mg PO BID #60 tablet 01/23/20 04/10/20 Rx cyanocobalamin (vitamin B-12) See Rx Instructions .ROUTE 02/05/20 04/10/20 Rx 1,000 mcg/mL injection solution .COMPLEX #3 milliliter levothyroxine 100 mcg tablet See Rx Instructions .ROUTE 02/12/20 04/10/20 Rx .COMPLEX #90 tablet omeprazole 20 mg capsule,delayed 20 mg PO BID 90 Days #180 cap 03/18/20 04/10/20 Rx release potassium chloride 10 mEq 10 meq PO DAILY #30 tablet 04/08/20 04/10/20 Rx tablet,extended release carbidopa-levodopa [Sinemet] 1.5 tablet PO QID 04/10/20 04/10/20 History fludrocortisone 0.1 mg PO DAILY 04/10/20 04/10/20 History linaclotide 145 mcg capsule 145 mcg PO DAILY #30 cap 04/10/20 04/10/20 Rx tramadol 50 mg PO QID PRN 04/10/20 04/10/20 History Patient hx anesthesia problems: none Family hx anesthesia problems: none PMFSH Past Medical History Medical History Anemia Anxiety Arthritis Congestive heart failure Diastolic Constipation Constipation by delayed colonic transit Cystocele Depression Epigastric pain Family history of colon cancer in mother Gall bladder disease GERD (gastroesophageal reflux disease) History of GI bleed History of kidney stones History of rectal polyps Hx of hypotension Hx of Parkinson's disease Hypothyroidism IBS (irritable bowel syndrome) Orthostatic hypotension Osteoporosis Shaking palsy TIA (transient ischemic attack) UTI (urinary tract infection) Vaginal vault prolapse Surgical History Surgical History History of appendectomy History of bladder surgery History of bunionectomy DAVID History of cholecystectomy History of hysterectomy History of local excision of skin lesion History of rectal polypectomy Family History Family History Mother Carcinoma of colon Father Family history of coronary artery disease Sibling Family history of malignant neoplasm of breast Other Breast cancer Social History Social History Social History: The patient lives alone. She has been since 2007. Her daughter Indigo who is a nurse and lives in [place] is her durable power assistant attorney general for healthcare. The patient is a full code. 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
[2020-05-01] MEDS: BENZOCAINE (*SP) 60 ML SPRAY CAN (HURRICAINE) 1 SPRAY MUCOUS MEM (08:32)
--- NOTE | 2020-05-01 08:41 | PM.HPGS ---
History of Present Illness History of Present Illness Consent: Risks, benefits, and alternatives have been discussed and questions answered. Patient agrees to proceed with procedure. Chief complaint: Epigastric pain Narrative: Karyna Edmonds is a 74 year old female with epigastric pain despite ppi, CT a/p unremarkable, also post cholecystectomy. Review of Systems Constitutional: Constitutional: Denies headache(s) and Denies weakness Eyes: Eyes: Denies blurry vision ENT: Reports Normal hearing present, Denies headache(s) and Denies neck pain Cardiovascular: Cardiovascular: Denies chest pain and Denies dyspnea Respiratory: Respiratory: Denies dyspnea Gastrointestinal: Gastrointestinal: Reports no additional gastrointestinal complaints Genitourinary: Genitourinary: Denies dysuria Musculoskeletal: Musculoskeletal: Denies neck pain Integumentary/Breasts: Skin/Breast: Denies dry skin Neurologic: Reports Normal hearing present, Denies headache(s) and Denies weakness Psychiatric: Psychiatric: Denies anxiety Endocrine: Endocrine: Denies change in body appearance Hematologic/Lymphatic: Hematologic/Lymphatic: Denies easy bleeding Allergic/Immunologic: Allergic/Immunologic: Denies urticaria PMF Past Medical History Medical History Anemia Anxiety Arthritis Congestive heart failure Diastolic Constipation Constipation by delayed colonic transit Cystocele Depression Epigastric pain Family history of colon cancer in mother Gall bladder disease GERD (gastroesophageal reflux disease) History of GI bleed History of kidney stones History of rectal polyps Hx of hypotension Hx of Parkinson's disease Hypothyroidism IBS (irritable bowel syndrome) Orthostatic hypotension Osteoporosis Shaking palsy TIA (transient ischemic attack) UTI (urinary tract infection) Vaginal vault prolapse Surgical History Surgical History History of appendectomy History of bladder surgery History of bunionectomy DAVID History of cholecystectomy History of hysterectomy History of local excision of skin lesion History of rectal polypectomy Family History Family History Mother Carcinoma of colon Father Family history of coronary artery disease Sibling Family history of malignant neoplasm of breast Other Breast cancer Social History Social History Social History: The patient lives alone. She has been since 2007. Her daughter Indigo who is a nurse and lives in [place] is her durable power attorney lawyer for healthcare. The patient is a full code. 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 Lifelong nonsmoker. No alcohol or illicit drugs. Smoking status: Never smoker Alcohol intake: never Substance use: never Substance use type: does not use Living arrangements: alone Gender identity (if verbalized by the patient): Female Spiritual care concerns: No Agree to blood products: Yes Meds Home Medications and Allergies Home Medications Medication Instructions Recorded Confirmed Type carbidopa-levodopa 1 tablet PO HS 02/16/19 04/10/20 History cholecalciferol (vitamin D3) 1,000 unit PO DAILY 02/16/19 04/10/20 History [Vitamin D3] ropinirole 2 mg PO BID 02/16/19 04/10/20 History sennosides [senna] 17.2 mg PO HS 02/17/19 04/10/20 History folic acid 1 mg tablet 1 mg PO DAILY #90 tablet 05/05/19 04/10/20 Rx midodrine 5 mg tablet 5 mg PO TID PRN tablet 06/22/19 04/10/20 History acetaminophen [Tylenol Extra 1,000 mg PO TID PRN 07/24/19 04/10/20 History Strength] polyethylene glycol 3350 17 gram 17 gm PO DAILY 30 Days #30 each 10/24/19 04/10/20 Rx oral powder packet amantadine HC
[2020-05-01 08:43] VITALS: BP 156/93; PULSE 62; RESP 20; O2SAT 98
[2020-05-01 08:53] VITALS: BP 138/85; PULSE 60; RESP 22; O2SAT 97
[2020-05-01 09:03] VITALS: BP 156/80; PULSE 60; RESP 20; O2SAT 98
== END 2020-05-01 09:20 | disposition home or self-care (01) ==
PROVIDERS: PCP Physician Assistant; Visit Provider Internal Medicine Gastroenterology
PROC: 0DJ08ZZ Inspection of Upper Intestinal Tract, Via Natural or Artificial Opening Endoscopic (ICD-10-PCS; CPT 43235; principal; 2020-05-01 08:00)
DX: R10.13 Epigastric pain (principal); K44.9 Diaphragmatic hernia without obstruction or gangrene; K29.50 Unspecified chronic gastritis without bleeding; K21.9 Gastro-esophageal reflux disease without esophagitis; I11.0 Hypertensive heart disease with heart failure; I50.30 Unspecified diastolic (congestive) heart failure; G20 Parkinson's disease; E03.9 Hypothyroidism, unspecified; M81.0 Age-related osteoporosis without current pathological fracture; K58.9 Irritable bowel syndrome, unspecified; D64.9 Anemia, unspecified; F41.8 Other specified anxiety disorders; K59.01 Slow transit constipation; Z80.0 Family history of malignant neoplasm of digestive organs; Z86.73 Personal history of transient ischemic attack (TIA), and cerebral infarction without residual deficits
CPT/HCPCS: 43239; 88305; J2704; J7120

== ENCOUNTER 2020-05-15 10:28 | Emergency (ER) | payer MEDICARE, OTHER, SELFPAY ==
[2020-05-15] VITALS (20 sets, daily range): BP systolic 129–172; BP diastolic 66–94; PULSE 66–86; RESP 12–20; TEMP 36.1; O2SAT 92–100
--- NOTE | ~2020-05-15 | CT_ITS ---
EXAMINATION: CTA chest PE protocol DATE: 05/15/2020 12:42 INDICATION: Shortness of breath. TECHNIQUE: Computed tomography angiography (CTA) of the chest was performed with 100 mL Omnipaque-350 intravenous contrast timed to evaluate the pulmonary arteries. Coronal maximum intensity projection 3D-reconstructions were created by the technologist. Automated exposure control and iterative reconst ruction technique were employed. The dose-length product was 479.34 mGy-cm. COMPARISON: CT abdomen and pelvis 01/21/2020 FINDINGS: Calcified right lung nodules are consistent with old granulomatous disease. There is mild a telectasis bilaterally. No pleural effusion. The heart size is normal. There are coronary artery calc ifications. No pericardial effusion. There is no pulmonary embolus. There are changes of cholecystect gary. There is an electronic device in left anterior chest wall with electrode coursing into left neck . There is kyphosis and severe spondylosis of thoracic spine. IMPRESSION: 1. No pulmonary embolus. Reviewed, dictated and finalized at location A. OR HELPER IMPRESSION: 1. No pulmonary embolus.
--- NOTE | ~2020-05-15 | CT_ITS ---
EXAMINATION: CT abdomen pelvis wo con DATE: 05/15/2020 15:21 INDICATION: Abdominal pain and diarrhea TECHNIQUE: Computed tomography (CT) of the abdomen and pelvis was performed without intravenous contr ast. Automated exposure control and iterative reconstruction technique were employed. The dose-length product was 716.49 mGy-cm. COMPARISON: 09/20/2019 FINDINGS: Calcified right middle lobe nodule consistent with old granulomatous disease. Mild dependent atelecta sis in the bilateral lower lobes. Heart size is normal. No pericardial or pleural effusion. Cholecyst ectomy clips the gallbladder fossa. Liver, pancreas and bilateral adrenal glands are normal. Splenic calcifications consistent with old granulomatous disease. There is excreted contrast in the bilateral ureteral collecting systems, portions of the bilateral ureters and the bladder related to an earlier contrast-enhanced chest CT. Partially duplicated left renal collecting system which separate proxima l ureters draining the upper and lower poles which fuse short distance from the kidney. A nonobstruct ing 2-3 mm stone at the lower pole of the left kidney seen on the earlier chest CT is obscured by the excreted contrast. Kidneys otherwise unremarkable with no hydronephrosis. No abnormal bowel wall thi ckening or obstruction. Large amount of stool throughout the colon suggesting constipation. No absces s or free intraperitoneal gas or fluid. No pathologically enlarged abdominal or pelvic lymphadenopath y. Mild lumbar dextrocurvature with severe spondylosis. Mild left and mild to moderate right hip oste oarthritis. IMPRESSION: 1. 3 mm nonobstructing left renal stone obscured by excreted contrast in the renal collecting systems . Incidental partially degraded left renal collecting system. 2. As amount of colonic stool suggestive of constipation. Reviewed, dictated and finalized at location B. ESS CONTROL TECHNICIAN IMPRESSION: 1. 3 mm nonobstructing left renal stone obscured by excreted contrast in the re nal collecting systems. Incidental partially degraded left renal collecting sys tem. 2. As amount of colonic stool suggestive of constipation.
--- NOTE | ~2020-05-15 | XR_ITS ---
EXAMINATION: XR chest 2V DATE: 05/15/2020 11:17 INDICATION: Shortness of breath TECHNIQUE: PA and lateral views of the chest were obtained. COMPARISON: Chest radiograph dated 09/20/2018 FINDINGS: Interval placement of a likely deep brain stimulator with postprocessed controller projecting over th e left midlung zone with leads extending cephalad along the left neck and beyond the cephalad margin of the [id number]. Calcified right apical nodule consistent with old granulomatous disease. Lungs are otherwise clear with no focal airspace opacities, pulmonary edema, pleural effusion or pneumothor ax. The cardiomediastinal silhouette is normal. Cholecystectomy clips in the right upper quadrant. Up per thoracic kyphosis with severe spondylosis. Mild S-shaped curvature of the thoracic spine. IMPRESSION: 1. No acute cardiopulmonary disease. Reviewed, dictated and finalized at location B. HANDISE ASSOCIATE
--- NOTE | 2020-05-15 10:35 | ECG_ITS ---
Measurements Intervals [place] Rate: 71 P: 53 MI: 146 QRS: 19 QRSD: 133 T: 21 QT: 394 QTc: 428 Interpretive Statements SINUS RHYTHM RSR' IN V1 OR V2, CONSIDER RIGHT VENTRICULAR HYPERTROPHY OR RIGHT VCD LEFT VENTRIUCLAR HYPERTROPHY BASELINE ARTIFACT- I, II, AVR, AVL, V2, V4-V5 BORDERLINE ECG Electronically Signed On 05-15-2020 10:52:10 [facility] by Abdoulaye Wiseman D.O.
[2020-05-15 10:53] LABS: Basophils Percent Auto 0.7 % (0.2-1.2); Eosinophils Absolute Auto 0.1 K/mm3 (0-0.3); Eosinophils Percent Auto 0.9 % (0-4.4); Hematocrit 42.4 % (37.0-47.0); Hemoglobin 14.2 g/dL (12.0-15.0); Immature Granulocyte Absolute 0.02 K/mm3 (0.00-0.031); Immature Granulocyte Percent A 0.4 % (0-0.5); Lymphocytes Absolute Auto 1.75 K/mm3 (0.9-3.2); Lymphocytes Percent Auto 32.4 % (18.3-44.2); Mean Corpuscular HGB Conc 33.5 g/dl (32-36); Mean Corpuscular Hemoglobin 32.8 pg (26-34); Mean Corpuscular Volume 97.9 fl (80-100); Mean Platelet Volume 9.6 fl (7.4-10.4); Monocytes Absolute Auto 0.3 K/mm3 (0.1-0.6); Monocytes Percent Auto 5.9 % (2.6-8.5); Neutrophils Absolute Auto 3.2 K/mm3 (1.3-6.7); Neutrophils Percent Auto 59.7 % (45.5-73.1); Platelet Count Result 202 k/mm3 (150-375); Red Blood Count 4.33 M/mm3 (4.2-5.4); Red Cell Distribution Width 12.4 % (11.5-14.5); White Blood Count 5.4 K/mm3 (4.5-10.0)
[2020-05-15 11:05] LABS: Anion Gap 5 mmol/L (8-16); Blood Urea Nitrogen 19 mg/dL (7-17); Calcium 9.5 mg/dL (8.4-10.2); Carbon Dioxide 33 mmol/L (22-30); Chloride 103 mmol/L (98-107); Estimated CRCL calculation 47 ml/min; Estimated Glomerular Filt Rate > 60; Glucose 81 mg/dL (65-105); Potassium 3.6 mmol/L (3.4-5.0); Sodium 141 mmol/L (137-145)
--- NOTE | 2020-05-15 11:12 | ED.SOB ---
HPI - SOB/Dyspnea General Chief Complaint: Shortness of Breath/Dyspnea Stated Complaint: SOB, diarrhea, HARRELL Time Seen by Provider: 05/15/20 11:03 Source: RN notes reviewed History of Present Illness HPI Narrative: Patient presents to emergency department from home for shortness of breath. Patient states that symptoms began 2 days ago. Patient states shortness of breath is worse with laying flat and activity she denies any fevers or chills cough abdominal pain nausea vomiting. She states she does have mild feeling of chest heaviness when she becomes short of breath that resolves when her shortness of breath resolves. Patient does note that she has diarrhea but she states that she has been having diarrhea for numerous years and this is not a new symptom patient states that she had intracranial implant for her Parkinson's disease at the beginning of March she states that recently they reprogrammed her stimulator Related Data Home Medications Medication Instructions Recorded Confirmed carbidopa-levodopa 1 tablet PO HS 02/16/19 04/10/20 cholecalciferol (vitamin D3) 1,000 unit PO DAILY 02/16/19 04/10/20 [Vitamin D3] ropinirole 2 mg PO BID 02/16/19 04/10/20 sennosides [senna] 17.2 mg PO HS 02/17/19 04/10/20 midodrine 5 mg tablet 5 mg PO TID PRN tablet 06/22/19 04/10/20 acetaminophen [Tylenol Extra 1,000 mg PO TID PRN 07/24/19 04/10/20 Strength] amantadine HCl 100 mg capsule 100 mg PO ONCE cap 12/13/19 04/10/20 clonazepam 0.5 mg tablet 0.5 mg PO DAILY 12/13/19 04/10/20 carbidopa-levodopa [Sinemet] 1.5 tablet PO QID 04/10/20 04/10/20 fludrocortisone 0.1 mg PO DAILY 04/10/20 04/10/20 tramadol 50 mg PO QID PRN 04/10/20 04/10/20 Allergies Allergy/AdvReac Type Severity Reaction Status Date / Time No Known Allergies Allergy Verified 05/15/20 11:31 Review of Systems Review of Systems: Narrative: Gen.: Denies fevers or chills ENT: Denies congestion Respiratory: See HPI CV: Denies chest pain or palpitations GI: Denies abdominal pain nausea, emesis or diarrhea Musculoskeletal: Denies back pain or muscle pain Neuro: Denies numbness, tingling, weakness or focal weakness Skin: Denies rash Except as documented, all other systems reviewed and negative [facility] Past Medical History Medical History Anemia Anxiety Arthritis Congestive heart failure Diastolic Constipation Constipation by delayed colonic transit Cystocele Depression Epigastric pain Family history of colon cancer in mother Gall bladder disease GERD (gastroesophageal reflux disease) History of GI bleed History of kidney stones History of rectal polyps Hx of hypotension Hx of Parkinson's disease Hypothyroidism IBS (irritable bowel syndrome) Orthostatic hypotension Osteoporosis Shaking palsy TIA (transient ischemic attack) UTI (urinary tract infection) Vaginal vault prolapse Surgical History Surgical History History of appendectomy History of bladder surgery History of bunionectomy DAVID History of cholecystectomy History of hysterectomy History of local excision of skin lesion History of rectal polypectomy Family History Family History Mother Carcinoma of colon Father Family history of coronary artery disease Sibling Family history of malignant neoplasm of breast Other Breast cancer Social History Social History Social History: The patient lives alone. She has been since 2007. Her daughter Indigo who is a nurse and lives in [place] is her durable power commercial real estate attorney for healthcare. The patient is a full code. 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 Lifelong nonsmoker. No alcohol or illicit drugs. Smoking status:
[2020-05-15 12:05] LABS: NT Pro B Type Natriuretic Pept 774 PG/ML (5-100); Troponin I < 0.012 ng/mL (0.000-0.034)
--- NOTE | 2020-05-15 12:48 | PC.NURSE ---
Called lab to add on pt inr ptt, hepatic and lip @[phone]
[2020-05-15 13:02] LABS: INR 0.8; Partial Thromboplastin Time 28.6 SECONDS (22.3-36.8); Prothrombin Time 12.1 Seconds (11.1-14.7)
[2020-05-15] MEDS: ONDANSETRON INJ 4 MG/2 ML VIAL IV PUSH (13:29)
[2020-05-15 13:52] LABS: Albumin Level 4.2 g/dL (3.5-5.1); Alkaline Phosphatase 149 U/L (38-126); Aspartate Amino Transferase 19 U/L (14-36); Bilirubin,Total 0.8 mg/dL (0.2-1.3); Lipase 109 U/L (23-300)
[2020-05-15 14:03] LABS: Alanine Aminotransferase < 4 U/L (4-35)
[2020-05-15 14:07] LABS: Add Urine Microscopic? NO; Appearance Urine Clear (Clear); Bilirubin Urine Negative (Negative); Blood Urine Negative (Negative); Color Urine Straw (Yellow); Glucose Urine UA Negative (Negative); Ketones Urine Negative (Negative); Leukocyte Esterase Ur Negative LEU/UL (Negative); Nitrate Urine Negative (Negative); Protein Urine Negative (Negative); Urobilinogen Urine Negative mg/dL (<2.0)
[2020-05-15 14:09] LABS: Specific Grav Ur 1.038 (1.001-1.035)
[2020-05-15 14:23] LABS: Troponin I < 0.012 ng/mL (0.000-0.034)
[2020-05-16 00:45] LABS: SARS-CoV-2 RNA PCR Negative
== END 2020-05-15 16:39 | disposition home or self-care (01) ==
PROVIDERS: Emergency Medicine; Emergency Provider Emergency Medicine; PCP Physician Assistant
DX: R06.00 Dyspnea, unspecified (principal); R11.0 Nausea; Z20.822 Contact with and (suspected) exposure to COVID-19; G20 Parkinson's disease; I50.30 Unspecified diastolic (congestive) heart failure; K21.9 Gastro-esophageal reflux disease without esophagitis; K58.1 Irritable bowel syndrome with constipation; E03.9 Hypothyroidism, unspecified; M81.0 Age-related osteoporosis without current pathological fracture; F41.9 Anxiety disorder, unspecified; F32.9 Major depressive disorder, single episode, unspecified; Z87.19 Personal history of other diseases of the digestive system; Z86.73 Personal history of transient ischemic attack (TIA), and cerebral infarction without residual deficits; Z87.442 Personal history of urinary calculi; Z87.440 Personal history of urinary (tract) infections; Z86.2 Personal history of diseases of the blood and blood-forming organs and certain disorders involving the immune mechanism; N20.0 Calculus of kidney; I51.7 Cardiomegaly; R94.31 Abnormal electrocardiogram [ECG] [EKG]
CPT/HCPCS: 36415; 71046; 71275; 74176; 80048; 80076; 81003; 83690; 83880; 84484; 85025; 85610; 85730; 93005; 96374; 96375; 99284; C9803; J0131; J2405; Q9967; U0003; U0005

== ENCOUNTER 2020-06-22 18:01 | Emergency (ER) | payer MEDICARE, OTHER, SELFPAY ==
--- NOTE | ~2020-06-22 | XR_ITS ---
EXAMINATION: XR chest 2V DATE: 06/22/2020 19:05 INDICATION: Shortness of breath TECHNIQUE: PA and lateral views of the chest are obtained. COMPARISON: 05/15/2020 FINDINGS: The lungs are free of acute opacities. There is no pleural effusion or pneumothorax. The ca rdiomediastinal silhouette is normal. There is moderate thoracic spondylosis. Surgical clips in the r ight upper quadrant are likely from prior cholecystectomy. An electronic device is implanted in the a nterior subcutaneous tissues of the left chest wall with its leads coursing beyond the superior yefri n of the radiograph in the left neck soft tissues. IMPRESSION: 1. No acute cardiopulmonary abnormality. Reviewed, dictated and finalized at location A.
--- NOTE | ~2020-06-22 | CT_ITS ---
EXAMINATION: CT abdomen pelvis wo con EXAM DATE: 06/22/2020 22:04 INDICATION: Abdominal pain. TECHNIQUE: Spiral CT of the abdomen and pelvis was performed without contrast. Axial, coronal and sag ittal images were reviewed. The dose-length product (DLP) for this examination was 494.36 mGy-cm. T he exposure was tailored according to patient size (auto mA exposure control), and iterative reconstr uction (ASIR) was used as additional dose reduction technique. There is no prior study for compariso n. FINDINGS: Duplicated left renal collecting system. Left nephrolithiasis measuring 5 mm, nonobstructin g. Persistent mild right-sided hydronephrosis without obstructing etiology identified. The uterus is no t identified and has likely been surgically resected. The bladder is unremarkable. The liver, splee n, adrenal glands and pancreas are unremarkable. There are surgical clips in the gallbladder fossa. Some biliary duct dilation which is common finding following cholecystectomy. There is no retroperi toneal or pelvic lymphadenopathy. There is mild scattered arteriosclerotic disease. Mild nonspecifi c mesenteric edema. Patient has malrotation nonrotation spectrum, congenital finding, with the colon on the left side of the abdomen and small bowel on the right. The appendix is not positively visualized. There is no per icecal inflammatory change to suggest appendicitis. The stomach and small bowel are unremarkable. T here is moderate amount of colonic stool. No free intraperitoneal gas. The heart is normal in siz e. There are no pericardial or pleural effusions. The lung bases are unremarkable. There are no os teoblastic or osteolytic lesions identified. IMPRESSION: 1. Mild chronic right hydronephrosis without obstructing stone. 2. Left nephrolithiasis. 3. Moderate colonic stool. Constipation? 4. Malrotation/nonrotation. Reviewed, dictated and finalized at location A.
--- NOTE | 2020-06-22 18:32 | ECG_ITS ---
Measurements Intervals [place] Rate: 71 P: 52 NH: 116 QRS: -17 QRSD: 134 T: 76 QT: 387 QTc: 422 Interpretive Statements SINUS RHYTHM WITH SHORT NH INTERVAL INCOMPLETE LEFT BUNDLE BRANCH BLOCK LEFT VENTRICULAR HYPERTROPHY AND ST-T CHANGE BASELINE ARTIFACT- I, II, III, AVR, AVL, AVF, V2-V6 ABNORMAL ECG Electronically Signed On 06-23-2020 7:46:24 CDT by Abdoulaye Wiseman D.O.
[2020-06-22 18:33] VITALS: BP 160/94; PULSE 71; RESP 18; TEMP 36.3; O2SAT 98
[2020-06-22 18:46] LABS: Basophils Percent Auto 0.6 % (0.2-1.2); Eosinophils Percent Auto 0.6 % (0-4.4); Hematocrit 39.5 % (37.0-47.0); Hemoglobin 13.7 g/dL (12.0-15.0); Immature Granulocyte Absolute 0.01 K/mm3 (0.00-0.031); Immature Granulocyte Percent A 0.2 % (0-0.5); Lymphocytes Absolute Auto 1.47 K/mm3 (0.9-3.2); Lymphocytes Percent Auto 31.3 % (18.3-44.2); Mean Corpuscular HGB Conc 34.7 g/dl (32-36); Mean Corpuscular Hemoglobin 33.3 pg (26-34); Mean Corpuscular Volume 96.1 fl (80-100); Mean Platelet Volume 9.3 fl (7.4-10.4); Monocytes Absolute Auto 0.3 K/mm3 (0.1-0.6); Neutrophils Absolute Auto 2.9 K/mm3 (1.3-6.7); Neutrophils Percent Auto 61.3 % (45.5-73.1); Platelet Count Result 196 k/mm3 (150-375); Red Blood Count 4.11 M/mm3 (4.2-5.4); Red Cell Distribution Width 12.6 % (11.5-14.5); White Blood Count 4.7 K/mm3 (4.5-10.0)
[2020-06-22 18:58] LABS: Anion Gap 5 mmol/L (8-16); Blood Urea Nitrogen 21 mg/dL (7-17); Calcium 9.3 mg/dL (8.4-10.2); Carbon Dioxide 29 mmol/L (22-30); Chloride 107 mmol/L (98-107); Estimated CRCL calculation 46 ml/min; Estimated Glomerular Filt Rate > 60; Glucose 103 mg/dL (65-105); Potassium 3.8 mmol/L (3.4-5.0); Sodium 141 mmol/L (137-145)
--- NOTE | 2020-06-22 20:24 | ED.SOB ---
HPI - SOB/Dyspnea General Chief Complaint: Shortness of Breath/Dyspnea Stated Complaint: shortness of breath Time Seen by Provider: 06/22/20 20:10 Source: patient Mode of arrival: ambulatory Limitations: no limitations History of Present Illness HPI Narrative: Patient is a 75-year-old female complaining of shortness of breath that started yesterday. Patient also complained abdominal pain but states that it is nothing new she has a history of chronic abdominal pain, and claims that she had an EGD done recently for it. Patient denies any chest pain, nausea, vomiting, diarrhea, fever or chills. Patient states that she has a history of Parkinson's. Related Data Home Medications Medication Instructions Recorded Confirmed carbidopa-levodopa 1 tablet PO HS 02/16/19 04/10/20 cholecalciferol (vitamin D3) 1,000 unit PO DAILY 02/16/19 04/10/20 [Vitamin D3] ropinirole 2 mg PO BID 02/16/19 04/10/20 sennosides [senna] 17.2 mg PO HS 02/17/19 04/10/20 midodrine 5 mg tablet 5 mg PO TID PRN tablet 06/22/19 04/10/20 acetaminophen [Tylenol Extra 1,000 mg PO TID PRN 07/24/19 04/10/20 Strength] amantadine HCl 100 mg capsule 100 mg PO ONCE cap 12/13/19 04/10/20 clonazepam 0.5 mg tablet 0.5 mg PO DAILY 12/13/19 04/10/20 carbidopa-levodopa [Sinemet] 1.5 tablet PO QID 04/10/20 04/10/20 fludrocortisone 0.1 mg PO DAILY 04/10/20 04/10/20 tramadol 50 mg PO QID PRN 04/10/20 04/10/20 Allergies Allergy/AdvReac Type Severity Reaction Status Date / Time No Known Allergies Allergy Verified 06/22/20 20:25 Review of Systems Review of Systems: All systems reviewed & are unremarkable except as noted in HPI and below Constitutional: Constitutional: Denies body ache(s), Denies chills, Denies excessive sweating, Denies fatigue, Denies fever(s), Denies headache(s), Denies lethargy, Denies malaise, Denies weakness and Denies weight loss Eyes: Eyes: Denies blurry vision, Denies change in vision and Denies loss of vision ENT: Denies dizziness, Denies ear discharge, Denies headache(s), Denies lip swelling, Denies epistaxis, Denies nasal congestion, Denies neck pain, Denies throat swelling and Denies tongue swelling Cardiovascular: Cardiovascular: Denies chest pain, Denies chest pain at rest, Denies chest pain with activity, Denies diaphoresis, Denies rapid heart rate, Denies edema, Denies irregular heart rhythm, Denies lightheadedness and Denies palpitations Respiratory: Respiratory: Denies chest congestion, Denies cough and Denies hemoptysis Gastrointestinal: Gastrointestinal: Denies abdominal pain, Denies melena, Denies hematochezia, Denies diarrhea, Denies nausea, Denies vomiting and Denies hematemesis Musculoskeletal: Musculoskeletal: Denies abnormal gait, Denies deformity, Denies joint swelling, Denies limited range of motion, Denies neck pain and Denies numbness Neurologic: Denies Abnormal speech present, Denies abnormal gait, Denies confusion, Denies dizziness, Denies headache(s), Denies focal weakness, Denies loss of vision, Denies numbness, Denies Other visual disturbances, Denies Sensory deficit (Neuro) and Denies weakness Psychiatric: Psychiatric: Denies confusion, Denies depression, Denies auditory hallucinations, Denies homicidal ideation and Denies suicidal ideation Endocrine: Endocrine: Denies cold intolerance, Denies excessive sweating, Denies fatigue, Denies heat intolerance and Denies palpitations Hematologic/Lymphatic: Hematologic/Lymphatic: Denies easy bleeding and Denies easy bruising Allergic/Immunologic: Allergic/Immunologic: Denies lip swelling, Denies throat swelling and Denies tongue swelling PMFSH Past Medical History Medical History Anemia Anxiety Arthritis Congestive heart failure Diastolic Constipation Constipation by delayed colonic transit Cystocele Depression Epigastric pain Family history of colon cancer in mother Gall bladder disease GERD (gastroesophageal reflux d
[2020-06-22 20:34] LABS: Lipase 83 U/L (23-300)
[2020-06-22 20:36] VITALS: BP 181/85; PULSE 77; RESP 18; O2SAT 98
[2020-06-22 20:38] VITALS: PULSE 70
[2020-06-22 20:39] LABS: D Dimer 0.31 ug/mL (<0.48)
[2020-06-22 20:48] LABS: NT Pro B Type Natriuretic Pept 464 PG/ML (5-100); Troponin I < 0.012 ng/mL (0.000-0.034)
[2020-06-22] MEDS: SODIUM CHLORIDE 0.9% IV 1,000 ML 999 ML IV CONT (20:51)
[2020-06-23 00:45] VITALS: BP 179/87; PULSE 72; RESP 16; TEMP 36.6; O2SAT 97
== END 2020-06-23 00:47 | disposition home or self-care (01) ==
PROVIDERS: Emergency Provider Emergency Medicine; PCP Family Medicine
DX: R06.00 Dyspnea, unspecified (principal); R10.84 Generalized abdominal pain; G89.29 Other chronic pain; G20 Parkinson's disease; I50.30 Unspecified diastolic (congestive) heart failure; F32.9 Major depressive disorder, single episode, unspecified; F41.9 Anxiety disorder, unspecified; E03.9 Hypothyroidism, unspecified; M19.90 Unspecified osteoarthritis, unspecified site; K21.9 Gastro-esophageal reflux disease without esophagitis; K58.9 Irritable bowel syndrome, unspecified; M81.0 Age-related osteoporosis without current pathological fracture; Z87.19 Personal history of other diseases of the digestive system; Z87.440 Personal history of urinary (tract) infections; Z86.73 Personal history of transient ischemic attack (TIA), and cerebral infarction without residual deficits; Z87.442 Personal history of urinary calculi; I44.7 Left bundle-branch block, unspecified; I51.7 Cardiomegaly; N13.30 Unspecified hydronephrosis; N20.0 Calculus of kidney
CPT/HCPCS: 36415; 71046; 74176; 80048; 83690; 83880; 84484; 85025; 85380; 93005; 96360; 99284; J7030

== ENCOUNTER 2020-10-04 13:56 | Outpatient (CLI) | payer MEDICARE, OTHER, SELFPAY ==
--- NOTE | ~2020-10-04 | XR_ITS ---
XR abdomen obstructive series DATE: 10/04/2020 14:20 INDICATION: Right lower quadrant abdominal pain TECHNIQUE: Supine and upright AP views COMPARISON: 06/22/[address] abdomen pelvis FINDINGS: Surgical clips overlie the right upper quadrant, consistent with cholecystectomy. There is a prominent amount of fecal material in the colon. No bowel obstruction is evident. No evide nce of intraperitoneal free air. Multiple bilateral calcified pelvic phleboliths. Mild rotatory dextroscoliosis of the lumbar spine. IMPRESSION: Reviewed, dictated and finalized at Location A. Reviewed, dictated and finalized at location A. IMPRESSION:
[2020-10-04 14:41] LABS: Hematocrit 38.7 % (37.0-47.0); Hemoglobin 12.7 g/dL (12.0-15.0); Mean Corpuscular HGB Conc 32.8 g/dl (32-36); Mean Corpuscular Hemoglobin 32.7 pg (26-34); Mean Corpuscular Volume 99.7 fl (80-100); Mean Platelet Volume 9.4 fl (7.4-10.4); Platelet Count Result 178 k/mm3 (150-375); Red Blood Count 3.88 M/mm3 (4.2-5.4); Red Cell Distribution Width 12.1 % (11.5-14.5); White Blood Count 4.9 K/mm3 (4.5-10.0)
[2020-10-04 14:52] LABS: Add Urine Microscopic? YES; Appearance Urine Clear (Clear); Bilirubin Urine Negative (Negative); Blood Urine Negative (Negative); Color Urine Yellow (Yellow); Glucose Urine UA Negative (Negative); Ketones Urine Negative (Negative); Leukocyte Esterase Ur 2+ LEU/UL (NEGATIVE); Mucus Urine Rare /lpf; Nitrate Urine Negative (Negative); Protein Urine Negative (Negative); RBC Urine 0-2 /hpf (0-2); Specific Grav Ur 1.013 (1.001-1.035); Squamous Epithelial Cell Urine Many /hpf (Few); Urobilinogen Urine Negative mg/dL (<2.0); WBC Urine 0-3 /hpf (0-3)
[2020-10-04 15:12] LABS: Albumin Level 4.1 g/dL (3.5-5.1); Alkaline Phosphatase 136 U/L (38-126); Anion Gap 8 mmol/L (8-16); Aspartate Amino Transferase 19 U/L (14-36); Bilirubin,Total 0.8 mg/dL (0.2-1.3); Blood Urea Nitrogen 18 mg/dL (7-17); Calcium 9.7 mg/dL (8.4-10.2); Carbon Dioxide 29 mmol/L (22-30); Chloride 101 mmol/L (98-107); Estimated Glomerular Filt Rate > 60; Glucose 96 mg/dL (65-110); Lipase 98 U/L (23-300); Potassium 4.2 mmol/L (3.4-5.0); Sodium 138 mmol/L (137-145)
[2020-10-04 15:35] LABS: Alanine Aminotransferase < 4 U/L (4-35)
== END 2020-10-04 13:57 | disposition home or self-care (01) ==
PROVIDERS: PCP Family Medicine; Visit Provider Family Medicine
DX: R10.31 Right lower quadrant pain (principal); E03.9 Hypothyroidism, unspecified; Z86.69 Personal history of other diseases of the nervous system and sense organs
CPT/HCPCS: 36415; 74019; 80053; 81001; 83690; 84443; 85027

== ENCOUNTER 2020-12-18 15:11 | Outpatient (CLI) | payer MEDICARE, OTHER, SELFPAY ==
--- NOTE | ~2020-12-18 | XR_ITS ---
EXAMINATION: XR abdomen/kub 1V EXAM DATE: 12/18/2020 15:32 INDICATION: R10.9 -Bilateral flank pain, had UTI one week ago. TECHNIQUE: Frontal projection of the upper abdomen, frontal projection lower abdomen/pelvis for inter pretation. Comparison is made to prior examination from 10/04/2020. FINDINGS: There are cholecystectomy clips. There is moderate amount of colonic stool and gas. No small bowel dilation, nonobstructive bowel gas pattern. Possible 5 mm left nephrolithiasis. Calcifica tions in the pelvis are believed to be phleboliths. There is no organomegaly suspected. There is m ild lumbar dextroscoliosis. IMPRESSION: Moderate amount of colonic stool. Possible left nephrolithiasis. Reviewed, dictated and finalized at location G.
== END 2020-12-18 15:12 | disposition home or self-care (01) ==
LOC: ANHIMG 15:14
PROVIDERS: PCP Family Medicine; Visit Provider Physician Assistant
DX: R10.9 Unspecified abdominal pain (principal)
CPT/HCPCS: 74018

== ENCOUNTER 2020-12-21 17:51 | Emergency (ER) | payer MEDICARE, OTHER, SELFPAY ==
--- NOTE | ~2020-12-21 | CT_ITS ---
EXAMINATION: CT abdomen pelvis wo con DATE: 12/21/2020 21:16 INDICATION: Right flank pain TECHNIQUE: Computed tomography (CT) of the abdomen and pelvis was performed without intravenous contr ast. Automated exposure control and iterative reconstruction technique were employed. The dose-length product was 290.32 mGy-cm. COMPARISON: 06/22/2020 FINDINGS: Mild linear discoid atelectasis at the lingula. Heart size is normal. No pericardial or pleural effus ion. Cholecystectomy clips at the gallbladder fossa. Liver, pancreas and bilateral adrenal glands are normal. A few splenic calcifications consistent with old granulomatous disease. 3 mm nonobstructing stone at a lower pole calyx of the left kidney. Persistent mild right hydronephrosis with transition point at the radial pelvic junction with no evident obstructing stone or mass. Bladder is normal. The uterus is not identified and has likely been surgically resected. Multiple phleboliths in the pelvis . Bowel malrotation with the small bowel located in the right abdomen. No dilated bowel to suggest ob struction. Large amount of stool in the mid colon. No free intraperitoneal gas or fluid. No pathologi barb enlarged abdominal or pelvic lymphadenopathy. Mild lumbar dextroscoliosis with severe lower lum bar spondylosis. Moderate bilateral hip osteoarthritis. IMPRESSION: 1. Nonobstructing 3 mm left renal stone. 2. Unchanged chronic mild right hydronephrosis with transition at the ureteropelvic joint without ashvin dent obstructing stone or mass. 3. Large amount of stool in the mid colon. Correlate clinically for constipation. 4. Bowel malrotation. Reviewed, dictated and finalized at location A. IMPRESSION: 1. Nonobstructing 3 mm left renal stone. 2. Unchanged chronic mild right hydronephrosis with transition at the ureterope lvic joint without evident obstructing stone or mass. 3. Large amount of stool in the mid colon. Correlate clinically for constipatio n. 4. Bowel malrotation.
[2020-12-21 17:55] VITALS: BP 117/70; PULSE 74; RESP 20; TEMP 36.6; O2SAT 97
[2020-12-21 19:27] LABS: Add Urine Microscopic? YES; Appearance Urine Clear (Clear); Bilirubin Urine Negative (Negative); Blood Urine Negative (Negative); Color Urine Yellow (Yellow); Glucose Urine UA Negative (Negative); Ketones Urine Negative (Negative); Leukocyte Esterase Ur 3+ LEU/UL (Negative); Nitrate Urine Negative (Negative); Protein Urine Negative (Negative); Specific Grav Ur 1.017 (1.001-1.035); Squamous Epithelial Cell Urine Many /hpf (Few); Urobilinogen Urine Negative mg/dL (<2.0); WBC Urine 16-20 /hpf
[2020-12-21 19:48] VITALS: BP 164/99; PULSE 73; RESP 18; TEMP 36.8; O2SAT 100
[2020-12-21] MEDS: ONDANSETRON HCL ODT 4 MG TABLET PO (21:28)
[2020-12-21 21:32] LABS: Basophils Percent Auto 0.6 % (0.2-1.2); Eosinophils Percent Auto 0.8 % (0-4.4); Hematocrit 39.3 % (37.0-47.0); Hemoglobin 13.3 g/dL (12.0-15.0); Immature Granulocyte Absolute 0.01 K/mm3 (0.00-0.031); Immature Granulocyte Percent A 0.2 % (0-0.5); Lymphocytes Absolute Auto 1.37 K/mm3 (0.9-3.2); Lymphocytes Percent Auto 25.9 % (18.3-44.2); Mean Corpuscular HGB Conc 33.8 g/dl (32-36); Mean Corpuscular Hemoglobin 33.8 pg (26-34); Mean Corpuscular Volume 99.7 fl (80-100); Mean Platelet Volume 9.3 fl (7.4-10.4); Monocytes Absolute Auto 0.4 K/mm3 (0.1-0.6); Monocytes Percent Auto 6.6 % (2.6-8.5); Neutrophils Absolute Auto 3.5 K/mm3 (1.3-6.7); Neutrophils Percent Auto 65.9 % (45.5-73.1); Platelet Count Result 184 k/mm3 (150-375); Red Blood Count 3.94 M/mm3 (4.2-5.4); Red Cell Distribution Width 12.2 % (11.5-14.5); White Blood Count 5.3 K/mm3 (4.5-10.0)
[2020-12-21 21:41] LABS: Albumin Level 4.9 g/dL (3.5-5.1); Alkaline Phosphatase 140 U/L (38-126); Anion Gap 9 mmol/L (8-16); Aspartate Amino Transferase 23 U/L (14-36); Bilirubin,Total 0.6 mg/dL (0.2-1.3); Blood Urea Nitrogen 22 mg/dL (7-17); Calcium 9.8 mg/dL (8.4-10.2); Carbon Dioxide 30 mmol/L (22-30); Chloride 102 mmol/L (98-107); Estimated CRCL calculation 39 ml/min; Estimated Glomerular Filt Rate 49; Glucose 107 mg/dL (65-110); Potassium 4.1 mmol/L (3.4-5.0); Sodium 141 mmol/L (137-145)
[2020-12-21 22:18] LABS: Alanine Aminotransferase < 4 U/L (4-35)
--- NOTE | 2020-12-21 22:18 | ED.GENADULT ---
HPI - General Adult General Chief complaint: Back Pain/Injury Stated complaint: abd pain; back pain, being treated for UTI Time Seen by Provider: 12/21/20 20:47 History of Present Illness HPI narrative: Patient is a 75-year-old female presents the emergency department with chief complaint of recent UTI of which is been treated for 3 rounds of antibiotics. Patient states that also she is having some pain in her right foot reports that is not improved by anything or is worsened patient states she was most recently treated with a 3-day course of Bactrim.. Patient has history of a urine culture that shows that it is resistant to cephalosporins. Related Data Home Medications Medication Instructions Recorded Confirmed carbidopa-levodopa 1 tablet PO HS 02/16/19 12/18/20 cholecalciferol (vitamin D3) 1,000 unit PO DAILY 02/16/19 12/18/20 [Vitamin D3] sennosides [senna] 17.2 mg PO HS 02/17/19 12/18/20 midodrine 5 mg tablet 5 mg PO TID PRN tablet 06/22/19 12/18/20 clonazepam 0.5 mg tablet 0.5 mg PO DAILY 12/13/19 12/18/20 ondansetron 4 mg disintegrating 4 mg PO BID PRN tablet 08/07/20 12/18/20 tablet carbidopa 25 mg-levodopa 100 mg 1 tablet PO QID tablet 09/26/20 12/18/20 tablet ropinirole 2 mg tablet 1 mg PO BID tablet 11/12/20 12/18/20 amitriptyline 10 mg tablet 10 mg PO QHS 12/18/20 12/18/20 fludrocortisone 0.1 mg tablet 0.1 mg PO DAILY tablet 12/18/20 12/18/20 omeprazole 20 mg capsule,delayed 20 mg PO BID 12/18/20 12/18/20 release Allergies Allergy/AdvReac Type Severity Reaction Status Date / Time No Known Allergies Allergy Verified 12/18/20 13:44 Review of Systems Review of Systems: A 10 system review of systems was completed on the patient and is negative except for what is stated in the HPI. Nursing and ancillary documentation was reviewed. [facility] Past Medical History Medical History Anemia Anxiety Arthritis Congestive heart failure Diastolic Constipation Constipation by delayed colonic transit Cystocele Depression Duplicated urinary collecting system Epigastric pain Family history of colon cancer in mother Gall bladder disease GERD (gastroesophageal reflux disease) History of GI bleed History of kidney stones History of rectal polyps Hx of hypotension Hx of Parkinson's disease Hypothyroidism IBS (irritable bowel syndrome) Orthostatic hypotension Orthostatic hypotension Osteoporosis RLQ abdominal pain Shaking palsy TIA (transient ischemic attack) UTI (urinary tract infection) Vaginal vault prolapse Surgical History Surgical History History of appendectomy History of bladder surgery History of bunionectomy DAVID History of cholecystectomy History of hysterectomy History of local excision of skin lesion History of rectal polypectomy Family History Family History Mother Carcinoma of colon Father Family history of coronary artery disease Sibling Family history of malignant neoplasm of breast Other Breast cancer Social History Social History Social History: The patient lives alone. She has been since 2007. Her daughter Indigo who is a nurse and lives in [place] is her durable power city attorney for healthcare. The patient is a full code. 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 Lifelong nonsmoker. No alcohol or illicit drugs. Alcohol intake: never Substance use: never Substance use type: does not use Gender identity (if verbalized by the patient): Female Spiritual care concerns: No Agree to blood products: Yes Exam Narrative: GENERAL: Well-appearing, well-nourished, and in no acute distress. HEAD:
[2020-12-21 22:25] VITALS: BP 128/77; PULSE 69; RESP 20; TEMP 36.4; O2SAT 98
[2020-12-21] MEDS: DOXYCYCLINE HYCLATE 100 MG TABLET PO (22:33)
== END 2020-12-21 22:42 | disposition home or self-care (01) ==
PROVIDERS: Emergency Medicine; Emergency Provider Emergency Medicine; PCP Family Medicine
DX: N39.0 Urinary tract infection, site not specified (principal); E03.9 Hypothyroidism, unspecified
CPT/HCPCS: 36415; 74176; 80053; 81001; 85025; 87086; 99284; A9270

== ENCOUNTER 2020-12-31 06:33 | Outpatient (CLI) | payer MEDICARE, OTHER, SELFPAY ==
--- NOTE | ~2020-12-31 | NM_ITS ---
EXAMINATION: ENRIQUE suggs renal scan DATE: 12/31/2020 08:30 INDICATION: Right hydronephrosis TECHNIQUE: 7.7 mCi Tc-99m MAG3 was administered IV. 40 mg furosemide was administered IV immediately afterward. The patient was scanned in the supine position. A posterior abdominal radionuclide angiog darryl was obtained. A subsequent time course of static images of the kidneys, ureters, and bladder was obtained. COMPARISON: None FINDINGS: The posterior abdominal radionuclide angiogram and sequential static images show normal size, positio n, and morphology of the kidneys. Peak renal parenchymal uptake was 1.8 min in left kidney and 1.9 mi n in right kidney (normal peak 3-5 minutes). The relative early renal uptake was 48% on the left and 52% on the right (<40% is abnormal). No abnormalities of the ureters or bladder are seen. T1/2 for clearance of activity from the left kidney and proximal collecting system was 6.7 minutes. T1/2 for clearance of activity from the right kidney and proximal collecting system was 6.6 minutes. Notes on interpretation: T1/2 <10 minutes is normal, 10-15 minutes is low grade obstruction of questi onable clinical significance, 15-20 minutes is partial obstruction that is likely clinically signific ant, >20 minutes is high grade obstruction. Note that false positives may be seen with supine positio martha, dehydration, severely dilated nonobstructed kidney, atonic collecting system, poor renal functi on, and chronic furosemide use. IMPRESSION: 1. Symmetric kidney function. 2. No delay in contrast clearance from either kidney to suggest fixed obstruction. Reviewed, dictated and finalized at location A. IMPRESSION: 1. Symmetric kidney function. 2. No delay in contrast clearance from either kidney to suggest fixed obstruct ion.
== END 2020-12-31 06:34 | disposition home or self-care (01) ==
LOC: ANHIMG 06:37
PROVIDERS: PCP Family Medicine; Visit Provider Nurse Practitioner Adult Health
DX: N13.30 Unspecified hydronephrosis (principal)
CPT/HCPCS: 78708; A9562; J1940

== ENCOUNTER → 2021-01-31 07:46 | Outpatient (CLI) | payer MEDICARE, OTHER, SELFPAY ==
--- NOTE | ~2021-01-31 | US_ITS ---
EXAMINATION: US right upper quadrant EXAM DATE: 01/31/2021 08:33 INDICATION: Upper abdominal pain, unspecified TECHNIQUE: Multiple grayscale and Doppler images of the abdomen right upper quadrant were obtained (b y a technologist who performed the scan) and subsequently reviewed. There is no prior study for sam chand. FINDINGS: The pancreatic head and body are normal in appearance. The pancreatic tail is not visualized. The l iver has normal echogenicity and contour. There are no focal liver lesions identified. There is no evidence of intrahepatic biliary duct dilation. Portal venous flow was seen in the hepatopedal, nor mal direction and has normal Doppler waveform. No right-sided hydronephrosis. Common bile duct measures 7 mm, which is normal for postcholecystectomy status and age. The gallblad best fossa is unremarkable. IMPRESSION: Unremarkable abdominal ultrasound exam. Reviewed, dictated and finalized at location D. CAL OFFICE WORKER
== END ==
PROVIDERS: PCP Family Medicine
DX: R10.10 Upper abdominal pain, unspecified (principal)
CPT/HCPCS: 76705

== ENCOUNTER 2021-02-04 16:55 | Outpatient (CLI) | payer MEDICARE, OTHER, SELFPAY ==
--- NOTE | ~2021-02-04 | XR_ITS ---
XR abdomen/kub 1V 02/04/2021 17:32 Indication: Constipation Procedure: KUB Comparison: Comparison to multiple prior studies sequentially, with oldest reviewed study dated 04/28. Findings: There is a lower pole left renal stone. There are calcified granulomas in the spleen. Large amount of retained fecal material in the colon. Nonobstructive bowel gas pattern. Moderate lumbar sp ondylosis with dextroscoliosis. Moderate osteoarthritis of the hips. Impression: 1: Nonobstructive bowel gas pattern with moderate colonic fecal loading. 2: Left nephrolithiasis. Reviewed, dictated and finalized at location A. HANGER Impression: 1: Nonobstructive bowel gas pattern with moderate colonic fecal loading. 2: Left nephrolithiasis.
== END 2021-02-04 16:56 | disposition home or self-care (01) ==
PROVIDERS: PCP Family Medicine
DX: K59.00 Constipation, unspecified (principal); N20.0 Calculus of kidney
CPT/HCPCS: 74018

== ENCOUNTER 2021-02-07 12:03 | Inpatient (IN) | payer MEDICARE, OTHER, SELFPAY ==
[2021-02-07] VITALS (19 sets, daily range): BP systolic 66–198; BP diastolic 34–110; PULSE 70–109; RESP 14–22; TEMP 36.3–36.7; O2SAT 97–100; BMI 28.9
--- NOTE | ~2021-02-07 | XR_ITS ---
EXAMINATION: XR chest 1V portable INDICATION: Hypertension TECHNIQUE: Portable AP chest at 2318 hours COMPARISON: 06/22/2020 FINDINGS: The lungs are free of acute opacities. There is no pleural effusion or pneumothorax. The ca rdiomediastinal silhouette is normal. An electronic device is implanted in the left chest wall with i ts leads coursing in the left neck beyond the superior margin of the radiograph. There is mild S-shap ed curvature of the spine. Surgical clips in the right upper quadrant are likely from prior cholecyst ectomy. IMPRESSION: 1. No acute cardiopulmonary abnormality. Reviewed, dictated and finalized at location A. ER WORKER
--- NOTE | ~2021-02-07 | XR_ITS ---
XR abdomen/kub 1V 02/09/2021 12:39 INDICATION: Constipation TECHNIQUE: KUB COMPARISON: Comparison to multiple prior studies sequentially, with oldest reviewed study dated 05/2017. FINDINGS: Bowel gas pattern is normal. Large amount of retained fecal material in the colon. There ar e cholecystectomy clips. There is no evidence of free air, mass, organomegaly, ascites or obstruction . There are left renal stones. The bones appear intact. IMPRESSION: 1: Left nephrolithiasis. 2: Moderate colonic fecal loading. No obstruction. Reviewed, dictated and finalized at location A. K PLUG ASSEMBLER
--- NOTE | ~2021-02-07 | CT_ITS ---
EXAMINATION: CT abdomen pelvis w con DATE: 02/07/2021 13:34 INDICATION: Abdominal pain TECHNIQUE: Computed tomography (CT) of the abdomen and pelvis was performed with 100 mL Omnipaque-350 intravenous contrast. Automated exposure control and iterative reconstruction technique were employe d. The dose-length product was 411.86 mGy-cm. COMPARISON: 12/21/2020 FINDINGS: Calcified right middle lobe nodule along with a couple splenic calcifications consistent with old gra nulomatous disease. No pneumonia, pulmonary edema or pleural effusion at the visualized lower lung zo ethan. Heart size is normal. No pericardial effusion. Atherosclerotic coronary artery calcification. Ch olecystectomy clips at the gallbladder fossa. Liver, pancreas and bilateral adrenal glands are normal . Nonobstructing 3-4 mm stone at a lower pole calyx of the left kidney. Relatively symmetric very mil d bilateral hydronephrosis with normal caliber ureters without evident obstructing stones or masses. Incidentally noted is a partially duplicated left renal collecting system which appear to fuse at the proximal left ureter. Bladder is normal. Intestinal malrotation with small bowel remaining in the right abdomen and pelvis. Redundant colon wi th wandering cecum which extends across the midline with tip in the left lower quadrant. Large amount of stool throughout the colon. The appendix is not visualized. No pericecal inflammatory change to s uggest acute appendicitis. No bowel obstruction. The uterus is not identified and has likely been edgardo gically resected. Several phleboliths in the pelvis. No free intraperitoneal gas or fluid. No patholo gically enlarged abdominal or pelvic lymphadenopathy. Mild lumbar dextroscoliosis with severe lower l umbar spondylosis. Moderate bilateral hip osteoarthritis. IMPRESSION: 1. No significant change in a nonobstructing 3-4 mm stone in a lower pole calyx of the left kidney. 2. Mild bilateral hydronephrosis with transition points at the ureteropelvic junctions and without ev ident obstructing stones or masses. 3. Bowel malrotation. 4. Large amount of colonic stool which could be seen with constipation. Reviewed, dictated and finalized at location A. TRIC HOIST OPERATOR IMPRESSION: 1. No significant change in a nonobstructing 3-4 mm stone in a lower pole calyx of the left kidney. 2. Mild bilateral hydronephrosis with transition points at the ureteropelvic ju nctions and without evident obstructing stones or masses. 3. Bowel malrotation. 4. Large amount of colonic stool which could be seen with constipation.
--- NOTE | 2021-02-07 12:28 | ECG_ITS ---
Measurements Intervals [place] Rate: 70 P: 62 IA: 366 QRS: -14 QRSD: 138 T: -26 QT: 400 QTc: 433 Interpretive Statements SINUS RHYTHM INTRAVENTRICULAR CONDUCTION DELAY LEFT VENTRICULAR HYPERTROPHY WITH ST-T CHANGE MINIMAL Q WAVES- HIGH LATERAL LEADS BORDERLINE T WAVE ABNORMALITY- ANTERIOR LEADS BASELINE ARTIFACT- I, II, III, AVR, AVL, AVF, V1-V2, V6 BORDERLINE ECG Electronically Signed On 02-07-2021 14:43:42 BAG MACHINE TENDER by Abdoulaye Wiseman D.O.
[2021-02-07 12:48] LABS: Basophils Percent Auto 0.6 % (0.2-1.2); Eosinophils Percent Auto 0.6 % (0-4.4); Hematocrit 37.9 % (37.0-47.0); Immature Granulocyte Absolute 0.01 K/mm3 (0.00-0.031); Immature Granulocyte Percent A 0.2 % (0-0.5); Lymphocytes Absolute Auto 1.55 K/mm3 (0.9-3.2); Lymphocytes Percent Auto 30.3 % (18.3-44.2); Mean Corpuscular HGB Conc 34.3 g/dl (32-36); Mean Corpuscular Volume 99.2 fl (80-100); Mean Platelet Volume 9.7 fl (7.4-10.4); Monocytes Absolute Auto 0.3 K/mm3 (0.1-0.6); Monocytes Percent Auto 5.3 % (2.6-8.5); Neutrophils Absolute Auto 3.2 K/mm3 (1.3-6.7); Platelet Count Result 188 k/mm3 (150-375); Red Blood Count 3.82 M/mm3 (4.2-5.4); Red Cell Distribution Width 12.2 % (11.5-14.5); White Blood Count 5.1 K/mm3 (4.5-10.0)
--- NOTE | 2021-02-07 12:48 | ED.GENADULT ---
HPI - General Adult General Chief complaint: Abdominal Pain Stated complaint: constipation Time Seen by Provider: 02/07/21 12:39 Source: RN notes reviewed History of Present Illness HPI narrative: Patient presents emergency department from home for abdominal pain. Patient states that she has been having intermittent lower abdominal pain for the past week states that with that she has been having decreased bowel movements and is concerned she is constipated pain is described as cramping in nature states she took magnesium citrate 2 days ago and had a bowel movements but had none since. States she has been seen in GI specialist for work-up of her abdominal pain and had an x-ray and an ultrasound done several weeks ago that showed no acute process she denies any fevers or chills chest pain shortness of breath or any other symptoms patient was noted to have an episode of hypotension in ED T triage is now resolved she does have a history of orthostatic retention she had noted mild dizziness denies any dizziness at this time Related Data Home Medications Medication Instructions Recorded Confirmed carbidopa-levodopa 1 tablet PO HS 02/16/19 12/18/20 cholecalciferol (vitamin D3) 1,000 unit PO DAILY 02/16/19 12/18/20 [Vitamin D3] sennosides [senna] 17.2 mg PO HS 02/17/19 12/18/20 midodrine 5 mg tablet 5 mg PO TID PRN tablet 06/22/19 12/18/20 clonazepam 0.5 mg tablet 0.5 mg PO DAILY 12/13/19 12/18/20 ondansetron 4 mg disintegrating 4 mg PO BID PRN tablet 08/07/20 12/18/20 tablet carbidopa 25 mg-levodopa 100 mg 1 tablet PO QID tablet 09/26/20 12/18/20 tablet ropinirole 2 mg tablet 1 mg PO BID tablet 11/12/20 12/18/20 amitriptyline 10 mg tablet 10 mg PO QHS 12/18/20 12/18/20 fludrocortisone 0.1 mg tablet 0.1 mg PO DAILY tablet 12/18/20 12/18/20 omeprazole 20 mg capsule,delayed 20 mg PO BID 12/18/20 12/18/20 release Allergies Allergy/AdvReac Type Severity Reaction Status Date / Time No Known Allergies Allergy Verified 12/18/20 13:44 Review of Systems Review of Systems: Gen.: Denies fevers or chills Eyes: Denies eye pain or visual change ENT: Denies congestion Respiratory: Denies shortness of breath or cough CV: Denies chest pain or palpitations GI: See Musculoskeletal: Denies back pain or muscle pain Neuro: Denies numbness, tingling, weakness or focal weakness Skin: Denies rash Except as documented, all other systems reviewed and negative [facility] Past Medical History Medical History (Updated 02/07/21 @ 15:05 by Norm Rodríguez DO) Anemia Anxiety Arthritis Congenital malrotation of intestine Constipation Depression Diastolic dysfunction Echocardiogram in September 2018 showed normal LV systolic function and size with no wall motion abnormalities, mild concentric LVH, impaired diastolic relaxation grade 1 with an EF visually estimated 60 to 65%. Duplicated urinary collecting system Gastroesophageal reflux disease Hypothyroidism Irritable bowel syndrome Kidney stones Orthostatic hypotension Osteoporosis Parkinson's disease Urinary, incontinence, stress female Surgical History Surgical History (Updated 02/07/21 @ 14:30 by India Bolden PA-C) History of appendectomy History of bladder surgery Mid urethral sling. History of bunionectomy of both great toes History of cholecystectomy History of hysterectomy History of lithotripsy History of local excision of skin lesion History of rectal polypectomy History of sacrocolpopexy For symptomatic vaginal vault prolapse. Family History Family History (Updated 02/07/21 @ 14:22 by India Bolden PA-C) Mother Carcinoma of colon Father Family history of coronary artery disease Sibling Family history of malignant neoplasm of breast Sibling Acute myocardial infarction Other Breast cancer Social History Social History (Updated 02/07/21 @ 14:23 by India Bolden PA-C) Social History: The patient is as of 2007 and lives in her own
[2021-02-07] MEDS: SODIUM CHLORIDE 0.9% IV 1,000 ML 999 ML IV CONT (13:02)
[2021-02-07 13:15] LABS: Alanine Aminotransferase 6 U/L (4-35); Albumin Level 4.3 g/dL (3.5-5.1); Alkaline Phosphatase 120 U/L (38-126); Anion Gap 8 mmol/L (8-16); Aspartate Amino Transferase 17 U/L (14-36); Bilirubin,Total 0.6 mg/dL (0.2-1.3); Blood Urea Nitrogen 25 mg/dL (7-17); Calcium 9.4 mg/dL (8.4-10.2); Carbon Dioxide 29 mmol/L (22-30); Chloride 101 mmol/L (98-107); Estimated CRCL calculation 36 ml/min; Estimated Glomerular Filt Rate 44; Glucose 106 mg/dL (65-110); Lipase 209 U/L (23-300); Potassium 3.9 mmol/L (3.4-5.0); Sodium 138 mmol/L (137-145)
[2021-02-07 13:26] LABS: Add Urine Microscopic? YES; Appearance Urine Cloudy (Clear); Bacteria Urine Trace /hpf; Bilirubin Urine Negative (Negative); Blood Urine Negative (Negative); Color Urine Yellow (Yellow); Glucose Urine UA Negative (Negative); Hyaline Casts Urine 50+ /lpf; Ketones Urine Trace mg/dL (Negative); Leukocyte Esterase Ur 2+ LEU/UL (Negative); Mucus Urine Few /lpf; Nitrate Urine Negative (Negative); Protein Urine Negative (Negative); RBC Urine 0-2 /hpf (0-2); Specific Grav Ur 1.016 (1.001-1.035); Squamous Epithelial Cell Urine Many /hpf (Few); Transitional Epi Cells Urine Rare /hpf (None Seen); Urobilinogen Urine Negative mg/dL (<2.0)
--- NOTE | 2021-02-07 14:30 | PM.IMHP ---
H&P: HPI History of Present Illness Date/Time: 02/07/21 14:30 Chief Complaint: Abdominal pain. Narrative: This is a very pleasant 75-year-old female with history of Parkinson's, orthostatic hypotension, and ongoing issues with constipation who presented to the emergency department earlier today for evaluation of abdominal pain. She suffers from constipation and in fact was recently evaluated by the gastroenterology service at [facility] on 01/22/2021 for evaluation of the same. At that time she had her Linzess increase in she was instructed to take MiraLax though she does not take that daily as it sounds as though she has frequent overflow diarrhea. Two days ago she took magnesium citrate and reports passing a small amount of formed stool thereafter followed by liquid brown stool. Fortunately she continues to have cramping discomfort in her abdomen and reports not having a decent bowel movement for at least 12 days. Additionally she was not feeling very well this morning with weakness and lightheadedness, similar to when she has had issues with orthostatic hypotension in the past. She called her sister who decided to bring her in today for evaluation. Upon standing the patient reports feeling very lightheaded and she actually had to hold on to furniture in order to ambulate. On arrival to the emergency department her blood pressure was 89/49 and those numbers did improve after receiving IV fluid rehydration. CT of the abdomen and pelvis showed a large amount of colonic stool and she is being admitted in this setting. She is no longer feeling lightheaded or dizzy and denies near-syncope and syncope. She has not had any nausea or vomiting. She continues to have bloating and lower abdominal cramping and has been passing flatus however has not yet had a bowel movement. Review of Systems Review of Systems: Twelve systems were reviewed. No fever, chills, or sweats. No recent cold or flu symptoms. She denies dysphagia. Ambulates independently. No recent falls. She has not had chest pain or shortness of breath. No hematochezia or melena. She denies dysuria, urgency, frequency, and hematuria. Except as documented, all other systems were reviewed and are negative. [facility] Past Medical History Medical History (Updated 02/08/21 @ 00:40 by India Bolden PA-C) Anemia Anxiety Arthritis Congenital malrotation of intestine Constipation Depression Diastolic dysfunction Echocardiogram in September 2018 showed normal LV systolic function and size with no wall motion abnormalities, mild concentric LVH, impaired diastolic relaxation grade 1 with an EF visually estimated 60 to 65%. Duplicated urinary collecting system Gastroesophageal reflux disease Hypothyroidism Irritable bowel syndrome Kidney stones Orthostatic hypotension Osteoporosis Parkinson's disease Urinary, incontinence, stress female Surgical History Surgical History (Updated 02/08/21 @ 00:36 by India Bolden PA-C) History of appendectomy History of bladder surgery Mid urethral sling. History of bunionectomy of both great toes History of cholecystectomy History of hysterectomy History of lithotripsy History of local excision of skin lesion History of rectal polypectomy History of sacrocolpopexy For symptomatic vaginal vault prolapse. Status post deep brain stimulator placement Family History Family History Mother Carcinoma of colon Father Family history of coronary artery disease Sibling Family history of malignant neoplasm of breast Sibling Acute myocardial infarction Other Breast cancer Social History Social History (Updated 02/08/21 @ 00:35 by India Bolden PA-C) Social History: The patient is as of 2007 and lives in independent living at [place]. She has 3 daughters. Lifelong nonsmoker. No alcohol or illicit substance abuse. Her daughter Indigo Gallego is her healthcare
[2021-02-07] MEDS: SODIUM CHLORIDE 0.9% IV 1,000 ML 100 ML IV CONT (15:07)
--- NOTE | 2021-02-07 15:11 | PC.NURSE ---
This patient, Karyna Edmonds, was admitted to [facility] Surg Room 324-01 at 1502 for orthostatic hypotension. Patient/family oriented to hospital policies and general routines including ID bracelet, bed and alarms, visiting hours, pain management, procedures, bathroom and other care routines, personal items, smoking policy, room service/diet, and visiting hours. Information on how to activate the Rapid Response Team has been discussed. Patient/Family are encouraged to report perceived risks to care and to ask questions if they do not understand what they are told or what they should do.
[2021-02-07] MEDS: CARBIDOPA/LEVODOPA 25/100 MG TABLET 1 TABLET PO (19:15)
[2021-02-07] MEDS: CARBIDOPA/LEVODOPA 25/100 MG CR TABLET 1 TABLET PO (22:56)
--- NOTE | 2021-02-07 23:06 | ECG_ITS ---
Measurements Intervals [place] Rate: 85 P: 155 MD: 259 QRS: -27 QRSD: 140 T: 92 QT: 354 QTc: 421 Interpretive Statements SINUS RHYTHM INTRAVENTRICULAR CONDUCTION DELAY LEFT VENTRICULAR HYPERTROPHY AND ST-T CHANGE MINIMAL Q WAVES- HIGH LATERAL LEADS BASELINE ARTIFACT- I, II, III, AVR, AVL, AVF, V1-V3, V5 BORDERLINE ECG Electronically Signed On 02-08-2021 7:15:26 BLACK TOP MACHINE OPERATOR by Abdoulyae Wiseman D.O.
--- NOTE | 2021-02-07 23:15 | P.PNCROSS_ITS ---
Event Note Event Note Event Note: S: Rapid response called at around 23:00. Nurse concerned as the judith schwarz's blood pressure was 190/110 and she was complaining of a headache and perhaps some mild chest discomfort. At the time my evaluation she does mention a mild posterior headache. She cannot say that she has overt chest pain but does report feeling a bit anxious with all the commotion due to the rapid response which made her feel a little uneasy and perhaps a bit short of breath. She is concerned as she has never seen her blood pressures this high before, reporting that they have only been as high as 150 at home although she admits that she does not check her blood pressure unless she has feelings of it running low. She has not needed to take her midodrine today. She denies vertigo, auditory and visual changes, focal weakness, paresthesias, facial droop, dysarthria, and dysphagia. She is not having active chest pain, pleuritic pain, palpitations, or shortness of breath. She also denies lower extremity edema, calf pain, and tenderness. O: A well-developed elderly female sitting up in bed in no distress. She is nontoxic in appearance. Pupils are reactive. Cranial nerves 2-12 are grossly intact. Oral mucosa moist. No tenderness to palpation over the chest wall. Pulses in the mid 80s with regular rate and rhythm. Lungs are clear to auscultation. Abdomen is slightly distended and tender to palpation. No CVA tenderness. No cyanosis, clubbing, or edema. Radial and pedal pulses intact. Negative Andreia sign bilaterally. A: Sitting/supine hypertension with mild posterior headache and perhaps chest discomfort. Her headache may very well be due to the elevated blood pressures. Patient suffers from orthostatic hypotension and reports never being diagnosed with hypertension. I did review her electronic medical records and with pr evious stays she indeed has a history of elevated blood pressure readings, likely supine hypertension given her need for fludrocortisone and midodrine from orthostatic hypotension. Chest discomfort may have been linked to anxiety as she is not having any issues at this time. P: Stat EKG is unchanged compared to tracing earlier today. Patient will be monitored on telemetry. Troponin has been ordered and is pending. At this time I do not want to give anything to the patient to abruptly bring her blood pressure down as I think it will improve after she has an enema which should relieve her abdominal discomfort. We will continue to monitor orthostatic vital signs and the nurses have been instructed to call if her blood pressures remain significantly elevated or if her chest discomfort returns.
[2021-02-07 23:39] LABS: Hematocrit 36.9 % (37.0-47.0); Hemoglobin 12.8 g/dL (12.0-15.0); Mean Corpuscular HGB Conc 34.7 g/dl (32-36); Mean Corpuscular Hemoglobin 33.8 pg (26-34); Mean Corpuscular Volume 97.4 fl (80-100); Mean Platelet Volume 9.4 fl (7.4-10.4); Platelet Count Result 161 k/mm3 (150-375); Red Blood Count 3.79 M/mm3 (4.2-5.4); Red Cell Distribution Width 12.2 % (11.5-14.5); White Blood Count 6.5 K/mm3 (4.5-10.0)
[2021-02-07 23:54] LABS: Anion Gap 5 mmol/L (8-16); Blood Urea Nitrogen 18 mg/dL (7-17); Calcium 9.6 mg/dL (8.4-10.2); Carbon Dioxide 29 mmol/L (22-30); Chloride 104 mmol/L (98-107); Estimated CRCL calculation 43 ml/min; Estimated Glomerular Filt Rate 54; Glucose 95 mg/dL (65-110); Potassium 3.9 mmol/L (3.4-5.0); Sodium 138 mmol/L (137-145)
[2021-02-08] VITALS (18 sets, daily range): BP systolic 72–170; BP diastolic 38–90; PULSE 63–89; RESP 18–20; TEMP 36.2–36.3; O2SAT 97–99
[2021-02-08 00:06] LABS: Troponin I < 0.012 ng/mL (0.000-0.034)
[2021-02-08] MEDS: ACETAMINOPHEN 325 MG TABLET 650 MG PO ×2 (01:41→08:18)
[2021-02-08] MEDS: DOCUSATE SODIUM 400 MG/400 ML ENEMA RECTAL (04:33)
[2021-02-08 07:52] LABS: Albumin Level 4.1 g/dL (3.5-5.1); Alkaline Phosphatase 125 U/L (38-126); Anion Gap 4 mmol/L (8-16); Aspartate Amino Transferase 17 U/L (14-36); Bilirubin,Total 0.7 mg/dL (0.2-1.3); Blood Urea Nitrogen 14 mg/dL (7-17); Calcium 9.7 mg/dL (8.4-10.2); Carbon Dioxide 31 mmol/L (22-30); Chloride 101 mmol/L (98-107); Estimated CRCL calculation 47 ml/min; Estimated Glomerular Filt Rate > 60; Glucose 100 mg/dL (65-110); Magnesium 1.8 mg/dL (1.6-2.3); Potassium 3.6 mmol/L (3.4-5.0); Sodium 136 mmol/L (137-145)
[2021-02-08 08:02] LABS: Eosinophils Absolute Auto 0.1 K/mm3 (0-0.3); Hematocrit 37.2 % (37.0-47.0); Hemoglobin 12.8 g/dL (12.0-15.0); Immature Granulocyte Absolute 0.01 K/mm3 (0.00-0.031); Immature Granulocyte Percent A 0.2 % (0-0.5); Lymphocytes Absolute Auto 1.42 K/mm3 (0.9-3.2); Lymphocytes Percent Auto 35.3 % (18.3-44.2); Mean Corpuscular HGB Conc 34.4 g/dl (32-36); Mean Corpuscular Hemoglobin 32.9 pg (26-34); Mean Corpuscular Volume 95.6 fl (80-100); Mean Platelet Volume 9.8 fl (7.4-10.4); Monocytes Absolute Auto 0.3 K/mm3 (0.1-0.6); Monocytes Percent Auto 6.5 % (2.6-8.5); Neutrophils Absolute Auto 2.2 K/mm3 (1.3-6.7); Platelet Count Result 175 k/mm3 (150-375); Red Blood Count 3.89 M/mm3 (4.2-5.4); Red Cell Distribution Width 12.1 % (11.5-14.5)
--- NOTE | 2021-02-08 08:03 | PM.IMPN ---
Progress Note: A&P Assessment and Plan (1) Abdominal pain: Code(s): R10.9 - Unspecified abdominal pain Status: Acute Assessment and Plan: 2/[address] with large stool burden in the colon. Small BM with enema. 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 Was hypotensive in ED with some response to fluids. -Continue midodrine 5 mg po TID PRN for SBP < 120 -Continue fludrocortisone for now (3) Hypertensive emergency: Code(s): I16.1 - Hypertensive emergency Status: Acute Assessment and Plan: Rapid response overnight w/ BP 190/110 w/ patient endorsing HARRELL & CP. EKG unchanges and troponin were negative. This resolved spontaneously and was likely due to stress from being in the hospital plus autonomic dysregulations from Parkinson's. -May transfer out of IMU (4) Asymptomatic bacteriuria: Code(s): R82.71 - Bacteriuria Status: Acute Assessment and Plan: UA negative nitrite and leukocyte esterase. S/p one dose of ceftriaxone in the ED. Given patient w/o sx, will no treatment is indicated at this time. (5) Macrocytosis: Code(s): D75.89 - Other specified diseases of blood and blood-forming organs Status: Acute Assessment and Plan: MCV 100, but this is likely 2/2 to chronic PPI use. Patient takes omeprazole at home. -Vitamin b12 and folate in AM (6) Chronic kidney disease: Code(s): N18.9 - Chronic kidney disease, unspecified Status: Acute Assessment and Plan: CKD Stage III - baseline GFR in high 40s. At baseline today but CT notes hydronephrosis without evidence of obstriction. -Urine lytes -May benefit from renal ultrasound (7) (HFpEF) heart failure with preserved ejection fraction: Code(s): I50.30 - Unspecified diastolic (congestive) heart failure Status: Acute Assessment and Plan: 12/03/20 TTE w/ EF 50% with LVH, Grade I diastolic dysfunction and mild pulmonary hypertension. Due to neurogenic orthostatic hypertension from Parkinson's patient likely cannot tolerate JESENIA or BB. (8) Hypothyroidism (acquired): Code(s): E03.9 - Hypothyroidism, unspecified Status: Acute Assessment and Plan: Hx of hypothyroidism. TSH 1.44 on admission on home levothyroxine. -Levothyroxine 100 mcg daily (9) RLS (restless legs syndrome): Code(s): G25.81 - Restless legs syndrome Status: Acute Assessment and Plan: On ropinorole 2mg po daily and amitriptyline 10 mg qhs -Continue home medications (10) Parkinson's Disease: Code(s): G20 - Parkinson's disease Status: Acute Assessment and Plan: On carbidopa 25 mg - levodopa 100 mg 1 tab QID. -Continue home medicaton Subjective Date/time seen: Date of Service 02/08/21 08:03 Patient reports having constipation for many years. Says she got some relief from magnesium citrate by drinking 3/4 of a bottle at home. Say she does have abdominal discomfort due to the constipation. She has not taken miralax. Metamucil was not helpful. Denies chest pain. Says she has chronic hypotension and has midodrine to take at home when her SBP is below 120. Review of Systems Cardiovascular: Cardiovascular: Denies chest pain Gastrointestinal: Gastrointestinal: Reports abdominal pain and Reports constipation Exam Narrative: GENERAL: NAD, cooperative HEENT: Normocephalic, atraumatic, anicteric, nares clear, oropharynx moist and clear, dentition normal NECK: Supple CV: Normal S1, S2, RRR, No MRG RESP: CTAB, Normal work of br
[2021-02-08 08:08] LABS: Alanine Aminotransferase < 6 U/L (4-35)
[2021-02-08] MEDS: POTASSIUM CHLORIDE 20 MEQ TABLET 40 MEQ PO (08:24)
[2021-02-08] MEDS: MAGNESIUM SULF 1 GM/D5W 100 ML 1 GM/100 ML BAG IVPB (09:01)
[2021-02-08] MEDS: CARBIDOPA/LEVODOPA 25/100 MG TABLET 1 TABLET PO ×4 (09:27→20:05)
[2021-02-08] MEDS: polyethylene glycoL 3350 17 GM POWD.PACK PO ×2 (15:28→17:44)
[2021-02-08] MEDS: rOPINIRole HCL 1 MG TABLET PO (17:44)
[2021-02-08] MEDS: MAGNESIUM CITRATE 300 ML BTL PO (20:06)
[2021-02-08] MEDS: BISACODYL 10 MG SUPPOSITORY RECTAL (21:54)
[2021-02-08] MEDS: CARBIDOPA/LEVODOPA 25/100 MG CR TABLET 2 TABLET PO (22:07)
[2021-02-08] MEDS: SENNOSIDES 8.6 MG TABLET 17.2 MG PO (22:07)
[2021-02-08] MEDS: PANTOPRAZOLE 40 MG TABLET PO (22:09)
[2021-02-08] MEDS: AMITRIPTYLINE HCL 10 MG TABLET PO (22:11)
[2021-02-09] VITALS (7 sets, daily range): BP systolic 97–145; BP diastolic 54–80; PULSE 63–74; RESP 16–19; TEMP 36.3; O2SAT 95–97
[2021-02-09 06:49] LABS: Basophils Percent Auto 0.7 % (0.2-1.2); Eosinophils Absolute Auto 0.1 K/mm3 (0-0.3); Eosinophils Percent Auto 1.8 % (0-4.4); Hemoglobin 12.8 g/dL (12.0-15.0); Lymphocytes Absolute Auto 2.33 K/mm3 (0.9-3.2); Lymphocytes Percent Auto 53.8 % (18.3-44.2); Mean Corpuscular HGB Conc 34.6 g/dl (32-36); Mean Corpuscular Hemoglobin 33.5 pg (26-34); Mean Corpuscular Volume 96.9 fl (80-100); Mean Platelet Volume 9.5 fl (7.4-10.4); Monocytes Absolute Auto 0.3 K/mm3 (0.1-0.6); Monocytes Percent Auto 6.2 % (2.6-8.5); Neutrophils Absolute Auto 1.6 K/mm3 (1.3-6.7); Neutrophils Percent Auto 37.5 % (45.5-73.1); Platelet Count Result 186 k/mm3 (150-375); Red Blood Count 3.82 M/mm3 (4.2-5.4); Red Cell Distribution Width 12.2 % (11.5-14.5); White Blood Count 4.3 K/mm3 (4.5-10.0)
[2021-02-09 07:04] LABS: Anion Gap 4 mmol/L (8-16); Blood Urea Nitrogen 17 mg/dL (7-17); Calcium 9.5 mg/dL (8.4-10.2); Carbon Dioxide 33 mmol/L (22-30); Chloride 99 mmol/L (98-107); Estimated CRCL calculation 43 ml/min; Estimated Glomerular Filt Rate 54; Glucose 101 mg/dL (65-110); Potassium 3.9 mmol/L (3.4-5.0); Sodium 136 mmol/L (137-145)
--- NOTE | 2021-02-09 07:21 | PM.IMPN ---
Progress Note: A&P Assessment and Plan (1) Abdominal pain: Code(s): R10.9 - Unspecified abdominal pain Status: Acute Assessment and Plan: 2/[address] with large stool burden in the colon. Small BM with enema. Doculax and magnesium citrate were unsuccessful overnight but patient reporting resolution of constipation and pain. 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 Was hypotensive in ED with some response to fluids. -Continue midodrine 5 mg po TID PRN for SBP < 120 -Continue fludrocortisone for now (3) Hypertensive emergency: Code(s): I16.1 - Hypertensive emergency Status: Acute Assessment and Plan: Rapid response overnight w/ BP 190/110 w/ patient endorsing HARRELL & CP. EKG unchanges and troponin were negative. This resolved spontaneously and was likely due to stress from being in the hospital plus autonomic dysregulations from Parkinson's. -May transfer out of IMU (4) Asymptomatic bacteriuria: Code(s): R82.71 - Bacteriuria Status: Acute Assessment and Plan: UA negative nitrite and leukocyte esterase. S/p one dose of ceftriaxone in the ED. Given patient w/o sx, will no treatment is indicated at this time. (5) Macrocytosis: Code(s): D75.89 - Other specified diseases of blood and blood-forming organs Status: Acute Assessment and Plan: MCV 100, but this is likely 2/2 to chronic PPI use. Patient takes omeprazole at home. Follow up with PCP outpatient. (6) Chronic kidney disease: Code(s): N18.9 - Chronic kidney disease, unspecified Status: Acute Assessment and Plan: CKD Stage III - baseline GFR in high 40s. At baseline today but CT notes hydronephrosis without evidence of obstriction. -Urine lytes -May benefit from renal ultrasound outpatient. (7) (HFpEF) heart failure with preserved ejection fraction: Code(s): I50.30 - Unspecified diastolic (congestive) heart failure Status: Acute Assessment and Plan: 12/03/20 TTE w/ EF 50% with LVH, Grade I diastolic dysfunction and mild pulmonary hypertension. Due to neurogenic orthostatic hypertension from Parkinson's patient likely cannot tolerate JESENIA or BB. (8) Hypothyroidism (acquired): Code(s): E03.9 - Hypothyroidism, unspecified Status: Acute Assessment and Plan: Hx of hypothyroidism. TSH 1.44 on admission on home levothyroxine. -Levothyroxine 100 mcg daily (9) RLS (restless legs syndrome): Code(s): G25.81 - Restless legs syndrome Status: Acute Assessment and Plan: On ropinorole 2mg po daily and amitriptyline 10 mg qhs -Continue home medications (10) Parkinson's Disease: Code(s): G20 - Parkinson's disease Status: Acute Assessment and Plan: On carbidopa 25 mg - levodopa 100 mg 1 tab QID. -Continue home medicaton Subjective Date/time seen: Date of service 02/09/21 07:21 Patient is reporting she had a ball of stool after an enema. Doculax suppository and magnesium citrate were not successful. Patient has questions about whether or not she should take miralax Patient denies abdominal pain and says she is ready to go home. Patient has questions about her fluctuating blood pressure. Review of Systems Gastrointestinal: Gastrointestinal: Reports abdominal pain and Denies constipation Exam Narrative: GENERAL: NAD, cooperative HEENT: Normocephalic, atraumatic, anicteric, nares clear, oropharynx moist and clear, dentition normal NECK: Supple CV: Normal S1, S2, RRR, No MRG RESP: CTAB, Normal work of
[2021-02-09] MEDS: CARBIDOPA/LEVODOPA 25/100 MG TABLET 1 TABLET PO ×3 (07:39→15:02)
[2021-02-09] MEDS: LEVOTHYROXINE SODIUM 100 MCG TABLET PO (07:39)
[2021-02-09] MEDS: ACETAMINOPHEN 325 MG TABLET 650 MG PO (07:42)
--- NOTE | 2021-02-09 08:22 | PC.NURSE ---
02/07/21 at 2305 Rapid response was called concerning Pt high B/P with c/o chest pain & pressure. Details documented in vital sighs & rapid response documentation.
[2021-02-09] MEDS: FOLIC ACID 1 MG TABLET PO (10:00)
[2021-02-09] MEDS: polyethylene glycoL 3350 17 GM POWD.PACK PO (10:00)
[2021-02-09] MEDS: CHOLECALCIFEROL 1,000 UNITS TABLET 1000 UNITS PO (10:00)
[2021-02-09] MEDS: clonazePAM (*CRX) 0.5 MG TABLET PO (10:00)
[2021-02-09] MEDS: POTASSIUM CHLORIDE 10 MEQ TABLET.ER PO (10:01)
[2021-02-09] MEDS: PANTOPRAZOLE 40 MG TABLET PO (10:01)
[2021-02-09] MEDS: rOPINIRole HCL 1 MG TABLET PO (10:01)
[2021-02-09] MEDS: LACTULOSE 20 GM/30 ML UDC PO (11:37)
--- NOTE | 2021-02-09 16:00 | PM.DS ---
DS: Admitting Diagnosis Discharge Date 02/08/2021 Admitting Diagnosis Abdominal pain DS: Discharge Diagnosis Discharge Diagnosis (1) Abdominal pain: Code(s): R10.9 - Unspecified abdominal pain Status: Acute Assessment and Plan: 2/[address] with large stool burden in the colon. Small BM with enema. Doculax and magnesium citrate were unsuccessful overnight but patient reporting resolution of constipation and pain. 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 Was hypotensive in ED with some response to fluids. -Continue midodrine 5 mg po TID PRN for SBP < 120 -Continue fludrocortisone for now (3) Hypertensive emergency: Code(s): I16.1 - Hypertensive emergency Status: Acute Assessment and Plan: Rapid response overnight w/ BP 190/110 w/ patient endorsing HARRELL & CP. EKG unchanges and troponin were negative. This resolved spontaneously and was likely due to stress from being in the hospital plus autonomic dysregulations from Parkinson's. -May transfer out of IMU (4) Asymptomatic bacteriuria: Code(s): R82.71 - Bacteriuria Status: Acute Assessment and Plan: UA negative nitrite and leukocyte esterase. S/p one dose of ceftriaxone in the ED. Given patient w/o sx, will no treatment is indicated at this time. (5) Macrocytosis: Code(s): D75.89 - Other specified diseases of blood and blood-forming organs Status: Acute Assessment and Plan: MCV 100, but this is likely 2/2 to chronic PPI use. Patient takes omeprazole at home. Follow up with PCP outpatient. (6) Chronic kidney disease: Code(s): N18.9 - Chronic kidney disease, unspecified Status: Acute Assessment and Plan: CKD Stage III - baseline GFR in high 40s. At baseline today but CT notes hydronephrosis without evidence of obstriction. -Urine lytes -May benefit from renal ultrasound outpatient. (7) (HFpEF) heart failure with preserved ejection fraction: Code(s): I50.30 - Unspecified diastolic (congestive) heart failure Status: Acute Assessment and Plan: 12/03/20 TTE w/ EF 50% with LVH, Grade I diastolic dysfunction and mild pulmonary hypertension. Due to neurogenic orthostatic hypertension from Parkinson's patient likely cannot tolerate JESENIA or BB. (8) Hypothyroidism (acquired): Code(s): E03.9 - Hypothyroidism, unspecified Status: Acute Assessment and Plan: Hx of hypothyroidism. TSH 1.44 on admission on home levothyroxine. -Levothyroxine 100 mcg daily (9) RLS (restless legs syndrome): Code(s): G25.81 - Restless legs syndrome Status: Acute Assessment and Plan: On ropinorole 2mg po daily and amitriptyline 10 mg qhs -Continue home medications (10) Parkinson's Disease: Code(s): G20 - Parkinson's disease Status: Acute Assessment and Plan: On carbidopa 25 mg - levodopa 100 mg 1 tab QID. -Continue home medicaton DS: Summary Hospital Course Hospital Course: Patient was admitted to the hospital due to abdominal pain found to have significant colonic stool burden due to constipation. Patient developed elevated blood pressure with SBP 190 and a rapid response was called. Patient given miralax, magnesium citrate and a suppository without success. Patient reported her abdominal was resolved after a bowel movement with an enema. Patient discharged to home with instructions to establish a bowel routine to prevent constipation. Time Spent with Patient Time attestation: Total time spent providing and/or coordinating di
== END 2021-02-09 16:49 | DRG 305 ==
LOC: ANHED 12:51 → ANH3MEDSUR 14:44
PROVIDERS: Internal Medicine; Physician Assistant; Admitting Provider Internal Medicine; Emergency Provider Emergency Medicine; PCP Family Medicine; Visit Provider Family Medicine
DX: I16.1 Hypertensive emergency (principal); N13.2 Hydronephrosis with renal and ureteral calculous obstruction; G90.3 Multi-system degeneration of the autonomic nervous system; I50.30 Unspecified diastolic (congestive) heart failure; G20 Parkinson's disease; I13.0 Hypertensive heart and chronic kidney disease with heart failure and stage 1 through stage 4 chronic kidney disease, or unspecified chronic kidney disease; N18.30 Chronic kidney disease, stage 3 unspecified; I27.20 Pulmonary hypertension, unspecified; K59.09 Other constipation; E03.9 Hypothyroidism, unspecified; R82.71 Bacteriuria; G25.81 Restless legs syndrome; D75.89 Other specified diseases of blood and blood-forming organs; Z79.899 Other long term (current) drug therapy
CPT/HCPCS: 36415; 71045; 74018; 74177; 80048; 80053; 81001; 83690; 83735; 84443; 84484; 85025; 85027; 87086; 87088; 93005; 96361; 96365; 96367; 96375; 99285; A9270; G0378; J0131; J0696; J3475; J7030; Q9967

== ENCOUNTER 2021-02-21 16:49 | Observation (INO) | payer MEDICARE, OTHER, SELFPAY ==
[2021-02-21] VITALS (7 sets, daily range): BP systolic 81–134; BP diastolic 58–80; PULSE 67–82; RESP 17–18; TEMP 36–36.4; O2SAT 98–99; BMI 28.7
--- NOTE | ~2021-02-21 | XR_ITS ---
EXAMINATION: XR abdomen obstructive series DATE: 02/23/2021 09:08 INDICATION: Constipation TECHNIQUE: Upright and supine views of the abdomen were obtained. COMPARISON: 02/22/2021 FINDINGS: There are no dilated loops of bowel. No free intraperitoneal gas is identified. Volume of c olonic stool is decreased. The large bowel is again noted to be located primarily in the left abdomen . IMPRESSION: 1. Reduced volume of colonic stool. Reviewed, dictated and finalized at location A. ANICAL PROJECT ENGINEER
--- NOTE | ~2021-02-21 | XR_ITS ---
EXAMINATION: XR abdomen/kub 1V INDICATION: Abdominal pain, nausea TECHNIQUE: Supine view of the abdomen is obtained. COMPARISON: 02/09/2021 FINDINGS: A moderate volume of colonic stool is present. Cholecystectomy clips are noted in the right upper quadrant. There are phleboliths of the pelvis. Moderate osteoarthritis is noted in the hips. N o dilated loops of bowel are evident. IMPRESSION: 1. Constipation. Reviewed, dictated and finalized at location A. LITY MAINTENANCE TECHNICIAN IMPRESSION: 1. Constipation.
--- NOTE | ~2021-02-21 | XR_ITS ---
EXAMINATION: XR chest 1V portable EXAM DATE: 02/21/2021 19:59 INDICATION: Parkinson's. Syncope one day ago. TECHNIQUE: Portable AP frontal chest x-ray was obtained. Comparison is made to prior examination from 02/07/2021. FINDINGS: Single lead stimulator pack, leads projecting toward the calvarium, probably neural stimula tor given history provided. Cardiomegaly. No confluent consolidation, pneumothorax or pleural effusio n suspected. Right apical granuloma. There are bony degenerative changes. IMPRESSION: No acute cardiopulmonary findings. Reviewed, dictated and finalized at location A. [facility] [employer]
--- NOTE | ~2021-02-21 | CT_ITS ---
EXAMINATION: CT abdomen pelvis wo con DATE: 02/22/2021 14:23 INDICATION: New onset of left-sided pain TECHNIQUE: Computed tomography (CT) of the abdomen and pelvis was performed without intravenous contr ast. The dose-length product (DLP) was 514.11 mGy-cm. Automated exposure control and iterative recons truction technique were employed. COMPARISON: 02/07/2021 FINDINGS: Minimal dependent atelectasis is present in the lung bases. The heart size is normal. The g allbladder is surgically absent. Punctate calcifications in an otherwise normal spleen likely represe nt healed granulomatous disease. Within the limitations of noncontrast examination, the liver, adrena l glands, and right kidney are normal. There is a 4 mm nonobstructing stone of the left kidney. Again noted is mild bilateral hydronephrosis without obstructing lesion or stone identified. No pathologic ally enlarged abdominal or pelvic lymph nodes are identified. There is no free intraperitoneal gas or evidence of bowel obstruction. Malrotation of the bowel is again noted. There is a large volume of c olonic stool. There is severe lumbar spondylosis. IMPRESSION: 1. Bowel malrotation with constipation. Reviewed, dictated and finalized at location A. [employer]
--- NOTE | 2021-02-21 19:47 | ECG_ITS ---
Measurements Intervals Twilight Rate: 71 P: 16 WY: 124 QRS: -32 QRSD: 130 T: 60 QT: 397 QTc: 432 Interpretive Statements SINUS RHYTHM LEFT AXIS DEVIATION INTRAVENTRICULAR CONDUCTION DELAY DELAYED PRECORDIAL R/S TRANSITION LEFT VENTRICULAR HYPERTROPHY AND ST-T CHANGE MINIMAL Q WAVES- HIGH LATERAL LEADS BORDERLINE T WAVE ABNORMALITY- ANTEROLAT/INF LEADS BASELINE ARTIFACT- I, II, III, AVR, AVL, AVF, V1-V6 BORDERLINE ECG Electronically Signed On 02-22-2021 7:46:11 SALES REPRESENTATIVE ADDING MACHINES by Abdoulaye Wiseman D.O.
--- NOTE | 2021-02-21 20:07 | ED.GENADULT ---
HPI - General Adult General Chief complaint: Syncope Stated complaint: syncopal episode Time Seen by Provider: 02/21/21 19:47 Source: RN notes reviewed History of Present Illness HPI narrative: Patient presents emergency department from home for weakness. Patient states she has a history of Parkinson's disease and has frequent near syncopal episode she states she was in the shower yesterday and felt she was going to pass out and slumped on the floor she did not fall and did not fully lose consciousness states she is continue to follow week since that time states that she has had no headaches no fevers or chills vision changes, chest pain shortness of breath or abdominal pain. She states she was started on antibiotic today for a UTI denies any other symptoms at this time Related Data Home Medications Medication Instructions Recorded Confirmed carbidopa-levodopa 1 tablet PO HS 02/16/19 02/14/21 cholecalciferol (vitamin D3) 1,000 unit PO DAILY 02/16/19 02/14/21 [Vitamin D3] sennosides [senna] 17.2 mg PO HS 02/17/19 02/14/21 midodrine 5 mg tablet 5 mg PO TID PRN tablet 06/22/19 02/14/21 clonazepam 0.5 mg tablet 0.5 mg PO DAILY 12/13/19 02/14/21 carbidopa 25 mg-levodopa 100 mg 1 tablet PO QID tablet 09/26/20 02/14/21 tablet ropinirole 2 mg tablet 1 mg PO BID tablet 11/12/20 02/14/21 amitriptyline 10 mg tablet 10 mg PO QHS 12/18/20 02/14/21 fludrocortisone 0.1 mg tablet 0.1 mg PO DAILY tablet 12/18/20 02/14/21 omeprazole 20 mg capsule,delayed 20 mg PO BID 12/18/20 02/14/21 release Linzess 290 mcg PO DAILY 02/07/21 02/14/21 acetaminophen [Tylenol] 500 mg PO Q4H PRN 02/07/21 02/14/21 cholecalciferol (vitamin D3) 125 mcg PO DAILY 02/07/21 02/14/21 [Vitamin D3] cyanocobalamin (vitamin B-12) 100 mcg SUBCUT MONTHLY 02/07/21 02/14/21 ibuprofen 600 mg PO TID PRN 02/07/21 02/14/21 levothyroxine 100 mcg PO DAILY 02/07/21 02/14/21 ondansetron 4 mg PO Q6H PRN 02/07/21 02/14/21 Allergies Allergy/AdvReac Type Severity Reaction Status Date / Time hydrocodone AdvReac Severe psychosis Verified 02/21/21 20:33 Review of Systems Review of Systems: Gen.: Denies fevers or chills Eyes: Denies eye pain or visual change ENT: Denies congestion Respiratory: Denies shortness of breath or cough CV: Denies chest pain reports near syncope GI: Denies abdominal pain nausea, emesis or diarrhea Musculoskeletal: Denies back pain or muscle pain Neuro: Denies numbness, tingling, weakness or focal weakness Skin: Denies rash Except as documented, all other systems reviewed and negative [facility] Past Medical History Medical History Anemia Anxiety Arthritis Congenital malrotation of intestine Constipation Depression Diastolic dysfunction Echocardiogram in September 2018 showed normal LV systolic function and size with no wall motion abnormalities, mild concentric LVH, impaired diastolic relaxation grade 1 with an EF visually estimated 60 to 65%. Duplicated urinary collecting system Gastroesophageal reflux disease Hypothyroidism Irritable bowel syndrome Kidney stones Orthostatic hypotension Osteoporosis Parkinson's disease Urinary, incontinence, stress female Surgical History Surgical History History of appendectomy History of bladder surgery Mid urethral sling. History of bunionectomy of both great toes History of cholecystectomy History of hysterectomy History of lithotripsy History of local excision of skin lesion History of rectal polypectomy History of sacrocolpopexy For symptomatic vaginal vault prolapse. Status post deep brain stimulator placement Family History Family History Mother Carcinoma of colon Father Family history of coronary artery disease Sibling Family history of malignant neoplasm of breast Sibling Acute myocardial infarction Other Breast cancer
[2021-02-21 20:10] LABS: Basophils Percent Auto 0.7 % (0.2-1.2); Eosinophils Percent Auto 0.7 % (0-4.4); Hematocrit 36.5 % (37.0-47.0); Hemoglobin 12.5 g/dL (12.0-15.0); Immature Granulocyte Absolute 0.01 K/mm3 (0.00-0.031); Immature Granulocyte Percent A 0.2 % (0-0.5); Lymphocytes Percent Auto 36.6 % (18.3-44.2); Mean Corpuscular HGB Conc 34.2 g/dl (32-36); Mean Corpuscular Hemoglobin 33.5 pg (26-34); Mean Corpuscular Volume 97.9 fl (80-100); Mean Platelet Volume 9.4 fl (7.4-10.4); Monocytes Absolute Auto 0.2 K/mm3 (0.1-0.6); Monocytes Percent Auto 5.4 % (2.6-8.5); Neutrophils Absolute Auto 2.3 K/mm3 (1.3-6.7); Neutrophils Percent Auto 56.4 % (45.5-73.1); Platelet Count Result 182 k/mm3 (150-375); Red Blood Count 3.73 M/mm3 (4.2-5.4); Red Cell Distribution Width 12.5 % (11.5-14.5); White Blood Count 4.1 K/mm3 (4.5-10.0)
[2021-02-21 20:14] LABS: Add Urine Microscopic? YES; Appearance Urine Clear (Clear); Bilirubin Urine Negative (Negative); Blood Urine Negative (Negative); Color Urine Yellow (Yellow); Glucose Urine UA Negative (Negative); Ketones Urine Negative (Negative); Leukocyte Esterase Ur Negative LEU/UL (Negative); Mucus Urine Rare /lpf; Nitrate Urine Negative (Negative); Protein Urine Negative (Negative); RBC Urine 0-2 /hpf (0-2); Specific Grav Ur 1.015 (1.001-1.035); Squamous Epithelial Cell Urine Occasional /hpf (Few)
[2021-02-21 20:26] LABS: INR 0.9; Prothrombin Time 12.2 Seconds (11.1-14.7)
[2021-02-21 20:27] LABS: Partial Thromboplastin Time 27.5 SECONDS (22.3-36.8)
[2021-02-21] MEDS: SODIUM CHLORIDE 0.9% IV 1,000 ML 999 ML IV CONT (20:28)
[2021-02-21 20:33] LABS: Albumin Level 4.3 g/dL (3.5-5.1); Alkaline Phosphatase 122 U/L (38-126); Anion Gap 7 mmol/L (8-16); Aspartate Amino Transferase 18 U/L (14-36); Bilirubin,Total 0.6 mg/dL (0.2-1.3); Blood Urea Nitrogen 20 mg/dL (7-17); Calcium 9.5 mg/dL (8.4-10.2); Carbon Dioxide 28 mmol/L (22-30); Chloride 101 mmol/L (98-107); Estimated CRCL calculation 42 ml/min; Estimated Glomerular Filt Rate 54; Glucose 96 mg/dL (65-110); Lipase 95 U/L (23-300); Magnesium 1.7 mg/dL (1.6-2.3); Potassium 3.7 mmol/L (3.4-5.0); Sodium 136 mmol/L (137-145)
[2021-02-21 20:45] LABS: Troponin I < 0.012 ng/mL (0.000-0.034)
[2021-02-21 20:49] LABS: Alanine Aminotransferase < 6 U/L (4-35)
[2021-02-21] MEDS: SODIUM CHLORIDE 0.9% IV 1,000 ML 80 ML IV CONT (22:53)
[2021-02-21 23:04] LABS: Troponin I < 0.012 ng/mL (0.000-0.034)
--- NOTE | 2021-02-21 23:45 | PM.IMHP ---
H&P: HPI History of Present Illness Date/Time: 02/21/21 23:45 Chief Complaint: Syncope Narrative: This 75-year-old female with past medical history significant for Parkinson's disease, patient is status post deep brain stimulator implantation which has reduced her tremors, orthostatic hypotension/hypertension, chronic constipation, chronic abdominal pain. Patient with recent admission due to abdominal pain which resolved after bowel was evacuated. Patient also follows up at [facility] with Gastroenterology patient with exhaustive extensive workup in the past. Today she presents to the emergency room due to question regarding how much potassium she should be taking a day however upon further questioning patient states that she had a syncopal episode while taking a shower 2 days ago she lives by herself and she remembers waking up laying on the floor in the shower. Patient has been in her usual state of health no fevers no rigors no chills no cough no sputum production no shortness of breath no nausea no vomiting she has had some bowel incontinence which is not new for her and has been having few bowel movements today which is not new for her patient also states that she has had roughly a 10 lb weight loss and is planning to go to [place] at the 2nd half of the month. Preliminary workup today was essentially nonrevealing patient has been admitted for further evaluation management and treatment. Review of Systems Review of Systems: Patient had syncopal episode 2 days ago has had chronic diarrhea, 10 lb weight loss. Constitutional: Constitutional: Denies chills, Denies fatigue, Denies fever(s) and Denies weakness Eyes: Eyes: Denies change in vision ENT: Denies dysphagia, Denies nasal congestion, Denies nasal discharge, Denies nasal obstruction and Denies odynophagia Cardiovascular: Cardiovascular: Denies irregular heart rhythm, Denies radiating jaw, neck or arm pain, Denies palpitations, Denies dyspnea, Denies dyspnea on exertion and Denies orthopnea Respiratory: Respiratory: Denies cough, Denies excessive phlegm production, Denies dyspnea and Denies wheezing Gastrointestinal: Gastrointestinal: Reports abdominal pain, Denies melena, Denies hematochezia, Denies coffee ground emesis, Denies dyspepsia, Denies heartburn, Denies nausea and Denies vomiting Genitourinary: Genitourinary: Denies dysuria Musculoskeletal: Musculoskeletal: Denies myalgias and Denies joint swelling Integumentary/Breasts: Skin/Breast: Denies rash Neurologic: Denies dizziness, Denies focal weakness and Denies Sensory deficit (Neuro) Psychiatric: Psychiatric: Reports no additional psychiatric complaints and Reports as per HPI Endocrine: Endocrine: Reports no additional endocrine complaints and Reports as per HPI Hematologic/Lymphatic: Hematologic/Lymphatic: Reports no additional hematologic/lymphatic complaints and Reports as per HPI Allergic/Immunologic: Allergic/Immunologic: Reports no additional allergic/immunologic complaints and Reports as per HPI [facility] Past Medical History Medical History Anemia Anxiety Arthritis Congenital malrotation of intestine Constipation Depression Diastolic dysfunction Echocardiogram in September 2018 showed normal LV systolic function and size with no wall motion abnormalities, mild concentric LVH, impaired diastolic relaxation grade 1 with an EF visually estimated 60 to 65%. Duplicated urinary collecting system Gastroesophageal reflux disease Hypothyroidism Irritable bowel syndrome Kidney stones Orthostatic hypotension Osteoporosis Parkinson's disease Urinary, incontinence, stress female Surgical History Surgical History (Reviewed 02/14/21 @ 13:51 by Qing Hendricks, [facility]) History of appendectomy History of bladder surgery Mid urethral sling. History of bunionectomy of both great toes History of cholecystectomy History of hysterectomy History of lithotripsy H
[2021-02-22] VITALS (17 sets, daily range): BP systolic 93–184; BP diastolic 56–98; PULSE 63–91; RESP 16–17; TEMP 36.5–36.6; O2SAT 96–98
[2021-02-22 02:46] LABS: Troponin I < 0.012 ng/mL (0.000-0.034)
--- NOTE | 2021-02-22 03:53 | PHAR ---
PHARMACY VERIFIED HOME MED: Linaclotide [Linzess] 290 mcg capsule TAKE ONE CAPSULE BY MOUTH ONCE DAILY IN THE MORNING
[2021-02-22] MEDS: ACETAMINOPHEN 500 MG TABLET PO ×3 (03:56→22:28)
[2021-02-22] MEDS: LEVOTHYROXINE SODIUM 100 MCG TABLET PO (05:51)
[2021-02-22 05:52] LABS: Basophils Percent Auto 0.9 % (0.2-1.2); Eosinophils Percent Auto 0.9 % (0-4.4); Hemoglobin 11.2 g/dL (12.0-15.0); Lymphocytes Absolute Auto 1.54 K/mm3 (0.9-3.2); Lymphocytes Percent Auto 47.8 % (18.3-44.2); Mean Corpuscular HGB Conc 33.9 g/dl (32-36); Mean Corpuscular Hemoglobin 33.6 pg (26-34); Mean Corpuscular Volume 99.1 fl (80-100); Mean Platelet Volume 9.7 fl (7.4-10.4); Monocytes Absolute Auto 0.3 K/mm3 (0.1-0.6); Monocytes Percent Auto 8.1 % (2.6-8.5); Neutrophils Absolute Auto 1.4 K/mm3 (1.3-6.7); Neutrophils Percent Auto 42.3 % (45.5-73.1); Platelet Count Result 167 k/mm3 (150-375); Red Blood Count 3.33 M/mm3 (4.2-5.4); Red Cell Distribution Width 12.5 % (11.5-14.5); White Blood Count 3.2 K/mm3 (4.5-10.0)
[2021-02-22] MEDS: PANTOPRAZOLE 40 MG TABLET PO ×2 (05:52→17:24)
[2021-02-22 06:09] LABS: Anion Gap 6 mmol/L (8-16); Blood Urea Nitrogen 17 mg/dL (7-17); Calcium 8.8 mg/dL (8.4-10.2); Carbon Dioxide 26 mmol/L (22-30); Chloride 107 mmol/L (98-107); Estimated CRCL calculation 47 ml/min; Estimated Glomerular Filt Rate > 60; Glucose 115 mg/dL (65-110); Potassium 3.6 mmol/L (3.4-5.0); Sodium 139 mmol/L (137-145)
[2021-02-22] MEDS: CARBIDOPA/LEVODOPA 25/100 MG TABLET 1 TABLET PO ×4 (06:41→19:50)
[2021-02-22] MEDS: FAMOTIDINE 20 MG/2 ML VIAL IV PUSH (08:11)
[2021-02-22] MEDS: CHOLECALCIFEROL 1,000 UNITS TABLET 1000 UNITS PO (08:11)
[2021-02-22] MEDS: FOLIC ACID 1 MG TABLET PO (08:11)
[2021-02-22] MEDS: rOPINIRole HCL 1 MG TABLET PO ×2 (08:11→17:24)
[2021-02-22] MEDS: FLUDROCORTISONE ACETATE 0.1 MG TABLET PO (08:11)
[2021-02-22] MEDS: NITROFURANTOIN MONOHYD MACROCR 100 MG CAP PO (08:12)
[2021-02-22] MEDS: SODIUM CHLORIDE 0.9% IV 1,000 ML 80 ML IV CONT ×2 (12:00→23:38)
--- NOTE | 2021-02-22 13:26 | PM.IMPN ---
Progress Note: A&P Assessment and Plan (1) Abdominal pain: Qualifiers: Abdominal location: unspecified location Qualified Code(s): R10.9 - Unspecified abdominal pain Code(s): R10.9 - Unspecified abdominal pain Status: Acute Assessment and Plan: Differential diagnosis includes diverticulitis and ischemic colitis both possibly from increased intraluminal pressure caused by her chronic slow transit constipation that is likely related to her parkinsonism with associated autonomic dysfunction KUB with increased stool no free air CT abdomen and pelvis pending (2) Syncope: Qualifiers: Syncope type: unspecified Qualified Code(s): R55 - Syncope and collapse Code(s): R55 - Syncope and collapse Status: Acute Assessment and Plan: Suspect autonomic dysfunction secondary to Parkinson's disease Patient with exhaustive extensive workup in the past Continue midodrine Continue fludrocortisone Supportive care Receiving IV fluids (3) Orthostatic hypotension: Code(s): I95.1 - Orthostatic hypotension Status: Acute Assessment and Plan: 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 continue to compression stockings, head elevation, medications discussed with patient and daughter discontinuing amitriptyline and clonazepam (4) Parkinson's disease: Code(s): G20 - Parkinson's disease Status: Acute Assessment and Plan: Patient is status post deep brain stimulator implanted Significant improvement of tremors, gait, speech Continue carbidopa levodopa Follow-up in outpatient setting 02/22 Discussed with patient at bedside and with daughter at bedside by phone that the deep brain stimulation will not alter the progression of other problems related to parkinsonism such as hypnagogic hallucinations, autonomic dysfunction, and Lewy body dementia (5) (HFpEF) heart failure with preserved ejection fraction: Qualifiers: Heart failure chronicity: chronic Qualified Code(s): I50.32 - Chronic diastolic (congestive) heart failure Code(s): I50.30 - Unspecified diastolic (congestive) heart failure Status: Acute Assessment and Plan: Appears to be euvolemic (6) Chronic kidney disease: Qualifiers: Chronic kidney disease stage: unspecified stage Qualified Code(s): N18.9 - Chronic kidney disease, unspecified Code(s): N18.9 - Chronic kidney disease, unspecified Status: Acute Assessment and Plan: Unchanged BUN and creatinine at patient's baseline (7) Gastroesophageal reflux disease: Qualifiers: Esophagitis presence: esophagitis presence not specified Qualified Code(s): K21.9 - Gastro-esophageal reflux disease without esophagitis Code(s): K21.9 - Gastro-esophageal reflux disease without esophagitis Status: Chronic Assessment and Plan: Continue PPI (8) Constipation: Qualifiers: Constipation type: slow transit constipation Qualified Code(s): K59.01 - Slow transit constipation Code(s): K59.00 - Constipation, unspecified Status: Acute Assessment and Plan: Patient has chronic constipation and recently started bowel regimen Subjective Date/time seen: 02/22/21 13:26 Interval history: 02/22 visit: Sudden onset of deep aching upper abdominal to left lower quadrant abdominal discomfort. Nausea. No emesis. Minimal relief after loose stool. Feel she needs to have another stool. No bleeding. No urinary symptoms. PRIOR HISTORY OF CHOLECYSTECTOMY AND APPENDECTOMY History of chronic constipation. UTIs. Orthostatic hypotension. Severe parkinsonism requiring deep brain stimulator. Motor symptoms improved after deep brain stimulator. Review of Systems Review of Systems: All systems reviewed & are unremarkable except as noted in HPI and below Exam Narrative: HEENT: PERRL, sclerae nonic
--- NOTE | 2021-02-22 19:09 | PM.CNGS ---
Assessment and Plan Assessment and plan (1) Constipation: Onset Date: Unknown Qualifiers: Constipation type: slow transit constipation Qualified Code(s): K59.01 - Slow transit constipation Code(s): K59.00 - Constipation, unspecified Status: Acute Assessment and Plan: This is brand present for some time. She has seen several GI doctors about it. Probably will not be solved quickly. , will go over the CT scan that she on this admission. Have read the report and the report of the 1 done in January of this year. Both seem to indicate a somewhat distribution of the colon toward the left the small bowel to the right no signs of obstruction been present. Most recent CT scan does show significant amount of stool in the colon. Constipation certainly could be giving the patient her discomfort in the periumbilical area. Therefore, will reinstitute Metamucil MiraLax as part of her regimen. Will also have her take a duplex suppository once tonight to see if this helps relieve the discomfort and repeat a set of abdominal plain films tomorrow morning and have the radiologist compare that to her recent CT scan. (2) Abdominal pain: Onset Date: ~02/2021 Qualifiers: Abdominal location: unspecified location Qualified Code(s): R10.9 - Unspecified abdominal pain Code(s): R10.9 - Unspecified abdominal pain Status: Acute Assessment and Plan: This seems to have gotten somewhat worse but the patient has gone offer recommended bowel program regimen. Will review CT in a.m. and see if discussing her case with the radiologist heels any other possibilities of investigation. (3) Gastroesophageal reflux disease: Onset Date: Unknown Qualifiers: Esophagitis presence: esophagitis presence not specified Qualified Code(s): K21.9 - Gastro-esophageal reflux disease without esophagitis Code(s): K21.9 - Gastro-esophageal reflux disease without esophagitis Status: Chronic Assessment and Plan: Agree with continuing a PPI. (4) Parkinson's Disease: Code(s): G20 - Parkinson's disease Status: Acute Assessment and Plan: As per primary service. I agree that this may be a factor in leading to her slow colonic current transit and constipation problems. Agree with trying to stop some of her antidepressant medications if she is otherwise doing well since these can cause constipation. (5) Constipation by delayed colonic transit: Onset Date: Unknown Code(s): K59.01 - Slow transit constipation Status: Acute Assessment and Plan: This is apparently been fairly long-standing. See notes above. Additional Plan Encourage activity such as walking in the nunes. History of Present Illness Consult details Consult date: 02/22/21 Reason for consult: abdominal pain Requesting physician: Venancio Gallego MD Narrative: This patient is a pleasant 75-year-old white female who has known Parkinson's and a deep brain implant. She has a known chronic history of constipation and slow colonic transit. She has seen GI both here at [facility] and at [facility] over the last year. She has had a previous upper GI scope done by Dr. Russell here at [facility] which showed some mild gastritis but nothing else of significance. She returns at this time with some complaints of mid upper abdominal pain and a CT scan showed significant dilation of the large bowel with stool and also some element of a partial malrotation in that most the colon is situated more to the left of the abdomen and most the small bowel more situated to the right. She tells me she has had a partial hysterectomy which she did not more fully define and she has had an appendectomy in the distant past through an open incision. She also has had a laparoscopic cholecystectomy about 10 years ago. The last few days the patient has had just very small bowel movements. She
[2021-02-22] MEDS: KETOROLAC 15 MG/ML VIAL (*BKC) IV PUSH (19:35)
[2021-02-22] MEDS: BISACODYL 10 MG SUPPOSITORY RECTAL (19:50)
[2021-02-22] MEDS: polyethylene glycoL 3350 17 GM POWD.PACK PO (19:51)
[2021-02-22] MEDS: CARBIDOPA/LEVODOPA 25/100 MG CR TABLET 1 TABLET PO (19:52)
[2021-02-23] VITALS: PULSE 64
[2021-02-23] MEDS: KETOROLAC 15 MG/ML VIAL (*BKC) IV PUSH (02:00)
[2021-02-23 04:00] VITALS: PULSE 59
[2021-02-23 04:28] VITALS: BP 155/94; PULSE 65; RESP 16; TEMP 36.2; O2SAT 97
[2021-02-23] MEDS: ACETAMINOPHEN 500 MG TABLET PO (04:48)
[2021-02-23 06:00] LABS: Hematocrit 34.1 % (37.0-47.0); Hemoglobin 11.5 g/dL (12.0-15.0); Mean Corpuscular HGB Conc 33.7 g/dl (32-36); Mean Corpuscular Hemoglobin 32.7 pg (26-34); Mean Corpuscular Volume 96.9 fl (80-100); Mean Platelet Volume 9.7 fl (7.4-10.4); Platelet Count Result 179 k/mm3 (150-375); Red Blood Count 3.52 M/mm3 (4.2-5.4); Red Cell Distribution Width 12.4 % (11.5-14.5); White Blood Count 3.9 K/mm3 (4.5-10.0)
[2021-02-23] MEDS: LEVOTHYROXINE SODIUM 100 MCG TABLET PO (06:03)
[2021-02-23] MEDS: CARBIDOPA/LEVODOPA 25/100 MG TABLET 1 TABLET PO ×2 (06:03→12:34)
[2021-02-23] MEDS: PANTOPRAZOLE 40 MG TABLET PO (06:04)
[2021-02-23] MEDS: PROMETHAZINE HCL 25 MG/ML AMPUL 12.5 MG IV PUSH (06:08)
[2021-02-23 06:16] LABS: Albumin Level 3.5 g/dL (3.5-5.1); Alkaline Phosphatase 106 U/L (38-126); Anion Gap 7 mmol/L (8-16); Aspartate Amino Transferase 16 U/L (14-36); Bilirubin,Total 0.6 mg/dL (0.2-1.3); Blood Urea Nitrogen 14 mg/dL (7-17); Calcium 8.9 mg/dL (8.4-10.2); Carbon Dioxide 28 mmol/L (22-30); Chloride 104 mmol/L (98-107); Estimated CRCL calculation 47 ml/min; Estimated Glomerular Filt Rate > 60; Glucose 97 mg/dL (65-110); Potassium 3.4 mmol/L (3.4-5.0); Sodium 139 mmol/L (137-145)
[2021-02-23 06:19] LABS: Magnesium 1.7 mg/dL (1.6-2.3)
[2021-02-23] MEDS: FOLIC ACID 1 MG TABLET PO (09:10)
[2021-02-23] MEDS: polyethylene glycoL 3350 17 GM POWD.PACK PO (09:10)
[2021-02-23] MEDS: CHOLECALCIFEROL 1,000 UNITS TABLET 1000 UNITS PO (09:10)
[2021-02-23] MEDS: FLUDROCORTISONE ACETATE 0.1 MG TABLET PO (09:10)
[2021-02-23] MEDS: rOPINIRole HCL 1 MG TABLET PO (09:10)
[2021-02-23 09:45] LABS: Alanine Aminotransferase < 6 U/L (4-35)
--- NOTE | 2021-02-23 11:20 | PM.DS ---
DS: Admitting Diagnosis Discharge Date February 23, 2021 Admitting Diagnosis Syncope DS: Discharge Diagnosis Discharge Diagnosis (1) Abdominal pain: Onset Date: ~02/2021 Qualifiers: Abdominal location: unspecified location Qualified Code(s): R10.9 - Unspecified abdominal pain Code(s): R10.9 - Unspecified abdominal pain Status: Acute Assessment and Plan: KUB with increased stool no free air, and follow-up KUB with normal bowel gas pattern CT abdomen and pelvis unremarkable except for chronic malrotation of bowel stable from previous CT earlier this year Responded well to bowel regimen Encourage regular bowel regimen without pauses after discharge (2) Syncope: Qualifiers: Syncope type: unspecified Qualified Code(s): R55 - Syncope and collapse Code(s): R55 - Syncope and collapse Status: Acute Assessment and Plan: Suspect autonomic dysfunction secondary to Parkinson's disease Patient with exhaustive extensive workup in the past Continue midodrine Continue fludrocortisone Support stockings Sleep with head of bed elevated Slow rising and pause prior to walking (3) Orthostatic hypotension: Code(s): I95.1 - Orthostatic hypotension Status: Acute Assessment and Plan: 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 continue to compression stockings, head elevation, medications Discontinue amitriptyline Taper off clonazepam as outpatient (4) Parkinson's disease: Code(s): G20 - Parkinson's disease Status: Acute Assessment and Plan: Patient is status post deep brain stimulator implanted Significant improvement of tremors, gait, speech Continue carbidopa levodopa Follow-up in outpatient setting 02/22 Discussed with patient at bedside and with daughter at bedside by phone that the deep brain stimulation will not alter the progression of other problems related to parkinsonism such as hypnagogic hallucinations, autonomic dysfunction, and Lewy body dementia (5) (HFpEF) heart failure with preserved ejection fraction: Qualifiers: Heart failure chronicity: chronic Qualified Code(s): I50.32 - Chronic diastolic (congestive) heart failure Code(s): I50.30 - Unspecified diastolic (congestive) heart failure Status: Acute Assessment and Plan: Appears to be euvolemic (6) Chronic kidney disease: Qualifiers: Chronic kidney disease stage: unspecified stage Qualified Code(s): N18.9 - Chronic kidney disease, unspecified Code(s): N18.9 - Chronic kidney disease, unspecified Status: Acute Assessment and Plan: Unchanged BUN and creatinine at patient's baseline (7) Gastroesophageal reflux disease: Onset Date: Unknown Qualifiers: Esophagitis presence: esophagitis presence not specified Qualified Code(s): K21.9 - Gastro-esophageal reflux disease without esophagitis Code(s): K21.9 - Gastro-esophageal reflux disease without esophagitis Status: Chronic Assessment and Plan: Continue PPI (8) Constipation: Onset Date: Unknown Qualifiers: Constipation type: slow transit constipation Qualified Code(s): K59.01 - Slow transit constipation Code(s): K59.00 - Constipation, unspecified Status: Acute Assessment and Plan: Patient has chronic constipation and recently started bowel regimen DS: Summary Hospital Course Reason for hospitalization: Syncope Hospital Course: Admitted with syncope 2 days prior to visit the emergency department. Developed abdominal pain during hospitalization. Has a history of chronic orthostatic hypotension. Parkinson's disease with deep brain stimulator. History of chronic constipation. Had negative CT and abdomen and pelvis except for chronic malrotation of bowel. Responded well to laxative regimen. Was tolerating diet. Tolerated ambulat
== END 2021-02-23 15:15 | disposition home health service (06) ==
LOC: ANHED 20:15 → ANH2MED 22:11
PROVIDERS: Surgery; Admitting Provider Internal Medicine; Emergency Provider Emergency Medicine; PCP Family Medicine; Visit Provider Internal Medicine
DX: I95.1 Orthostatic hypotension (principal); G20 Parkinson's disease; R10.9 Unspecified abdominal pain; I50.30 Unspecified diastolic (congestive) heart failure; N18.9 Chronic kidney disease, unspecified; K59.01 Slow transit constipation; Q43.3 Congenital malformations of intestinal fixation; E03.9 Hypothyroidism, unspecified; D64.9 Anemia, unspecified; F41.8 Other specified anxiety disorders; K21.9 Gastro-esophageal reflux disease without esophagitis; Q62.5 Duplication of ureter; M81.0 Age-related osteoporosis without current pathological fracture
CPT/HCPCS: 36415; 71045; 74018; 74019; 74176; 80048; 80053; 81001; 83690; 83735; 84484; 85025; 85027; 85610; 85730; 93005; 96361; 96374; 96375; 96376; 99285; A9270; G0378; J0131; J1885; J2550; J7030

== ENCOUNTER → 2021-03-22 08:44 | Outpatient (CLI) | payer MEDICARE, OTHER, SELFPAY ==
[2021-03-22 13:56] LABS: Influenza Control Positive
[2021-03-22 22:40] LABS: SARS-CoV-2 RNA PCR Negative
== END ==
PROVIDERS: PCP Family Medicine; Visit Provider Physician Assistant
DX: R50.9 Fever, unspecified (principal); Z20.822 Contact with and (suspected) exposure to COVID-19
CPT/HCPCS: 87804; C9803; U0003; U0005

== ENCOUNTER 2021-03-29 13:49 | Inpatient (IN) | payer MEDICARE, OTHER, SELFPAY ==
[2021-03-29] VITALS (34 sets, daily range): BP systolic 93–160; BP diastolic 55–114; PULSE 69–86; RESP 12–26; TEMP 36.2–36.5; O2SAT 94–100; BMI 27.9
--- NOTE | ~2021-03-29 | XR_ITS ---
EXAMINATION: XR chest 1V EXAM DATE: 03/29/2021 17:28 INDICATION: Altered mental status. TECHNIQUE: Portable AP frontal chest x-ray was obtained. Comparison is made to prior examination from 02/21/2021. FINDINGS: The lungs are clear. There are no pleural effusions. Mild cardiomegaly. Stimulator pack f or left-sided deep brain stimulator. Moderate to severe shoulder osteoarthritis. There is no pneumot horax suspected. IMPRESSION: Mild cardiomegaly unchanged. Reviewed, dictated and finalized at location G. [employer]
--- NOTE | ~2021-03-29 | CT_ITS ---
EXAMINATION: CT brain wo [facility] EXAM DATE: 03/29/2021 17:24 INDICATION: Altered mental status. TECHNIQUE: Spiral CT of the head was performed without contrast. Axial, coronal and sagittal images were reviewed. The dose-length product (DLP) for this examination was 605.33 mGy-cm. The exposure w as tailored according to patient size, and iterative reconstruction (ASIR) was used as additional dos e reduction technique. Comparison is made to prior examination from 07/24/2019. FINDINGS: There is a left-sided deep brain stimulator. Mild to moderate cerebral atrophy. Mild microa ngiopathy. No hydrocephalus, acute intracranial hemorrhage, extra-axial collections, or evidence of a cute infarction. Bilateral carotid siphon arterial sclerosis. There are no acute fractures identified . Orbits are unremarkable. IMPRESSION: No acute intracranial findings. Reviewed, dictated and finalized at location . [employer]
--- NOTE | 2021-03-29 17:06 | ECG_ITS ---
Measurements Intervals [place] Rate: 83 P: 103 IA: 279 QRS: -65 QRSD: 138 T: 34 QT: 362 QTc: 426 Interpretive Statements SINUS RHYTHM WITH SHORT IA INTERVAL LEFT AXIS DEVIATION INTRAVENTRICULAR CONDUCTION DELAY LEFT VENTRICULAR HYPERTROPHY WITH ST-T CHANGE MINIMAL Q WAVES- HIGH LATERAL LEADS BASELINE ARTIFACT- I, II, III, AVR, AVL, AVF, V1-V6 BORDERLINE ECG Electronically Signed On 03-29-2021 17:35:48 [employer] by Abdoulaye Wiseman D.O.
[2021-03-29 17:43] LABS: Basophils Percent Auto 0.3 % (0.2-1.2); Hematocrit 38.8 % (37.0-47.0); Hemoglobin 13.3 g/dL (12.0-15.0); Immature Granulocyte Absolute 0.03 K/mm3 (0.00-0.031); Immature Granulocyte Percent A 0.5 % (0-0.5); Lymphocytes Absolute Auto 1.37 K/mm3 (0.9-3.2); Lymphocytes Percent Auto 22.2 % (18.3-44.2); Mean Corpuscular HGB Conc 34.3 g/dl (32-36); Mean Corpuscular Hemoglobin 33.9 pg (26-34); Mean Platelet Volume 9.4 fl (7.4-10.4); Monocytes Absolute Auto 0.3 K/mm3 (0.1-0.6); Monocytes Percent Auto 5.2 % (2.6-8.5); Neutrophils Absolute Auto 4.4 K/mm3 (1.3-6.7); Neutrophils Percent Auto 71.8 % (45.5-73.1); Platelet Count Result 193 k/mm3 (150-375); Red Blood Count 3.92 M/mm3 (4.2-5.4); Red Cell Distribution Width 12.5 % (11.5-14.5); White Blood Count 6.2 K/mm3 (4.5-10.0)
--- NOTE | 2021-03-29 17:53 | ED.AMS ---
HPI - Altered Mental Status General Chief Complaint: Altered Mental Status <Tricia Thompson PA-C - Last Filed: 03/29/21 22:51> Stated Complaint: confused <Tricia Thompson PA-C - Last Filed: 03/29/21 22:51> Time Seen by Provider: 03/29/21 17:06 <Tricia Thompson PA-C - Last Filed: 03/29/21 22:51> Source: patient and family <Tricia Thompson PA-C - Last Filed: 03/29/21 22:51> Mode of arrival: ambulatory <KARISHMA Turpin Last Filed: 03/29/21 22:51> Limitations: altered mental status <KARISHMA Turpin Last Filed: 03/29/21 22:51> History of Present Illness HPI narrative: This is a 75 year old female that presents to the ER for AMS. Patient presents with her sister who noted that patient seemed to be confused when she was over at her home today which prompted her to bring her in for evaluation. Reports patient has been having a lot of trouble word finding. Patient has no complaints currently. Is unsure why she is here. Denies fever, chest pain, shortness of breath, abdominal pain, vomiting, or dysuria. <Tricia Thompson PA-C - Last Filed: 03/29/21 22:51> Related Data Home Medications: Home Medications Medication Instructions Recorded Confirmed carbidopa-levodopa 1 tablet PO HS 02/16/19 02/21/21 cholecalciferol (vitamin D3) 1,000 unit PO DAILY 02/16/19 02/21/21 [Vitamin D3] sennosides [senna] 17.2 mg PO HS 02/17/19 02/21/21 midodrine 5 mg tablet 5 mg PO TID PRN tablet 06/22/19 02/21/21 carbidopa 25 mg-levodopa 100 mg 1 tablet PO QID tablet 09/26/20 02/21/21 tablet ropinirole 2 mg tablet 1 mg PO BID tablet 11/12/20 02/21/21 fludrocortisone 0.1 mg tablet 0.1 mg PO DAILY tablet 12/18/20 02/21/21 omeprazole 20 mg capsule,delayed 20 mg PO BID 12/18/20 02/21/21 release Linzess 290 mcg PO DAILY 02/07/21 02/21/21 acetaminophen [Tylenol] 500 mg PO Q4H PRN 02/07/21 02/21/21 cyanocobalamin (vitamin B-12) 1,000 mcg SUBCUT MONTHLY 02/07/21 02/22/21 ibuprofen 600 mg PO TID PRN 02/07/21 02/21/21 levothyroxine 100 mcg PO DAILY 02/07/21 02/21/21 <Tricia Thompson PA-C - Last Filed: 03/29/21 22:51> Allergies/Adverse Reactions: Allergies Allergy/AdvReac Type Severity Reaction Status Date / Time hydrocodone AdvReac Severe psychosis Verified 02/21/21 23:50 <Tricia Thompson PA-C - Last Filed: 03/29/21 22:51> Review of Systems Review of Systems: CONSTITUTIONAL: Denies fever CARDIOVASCULAR: Denies chest pain RESPIRATORY: Denies dyspnea. GASTROINTESTINAL: Denies abdominal pain, nausea, vomiting GENITOURINARY: Denies dysuria NEUROLOGIC: Denies headache, numbness, or weakness. <Tricia Thompson PA-C - Last Filed: 03/29/21 22:51> All systems reviewed & are unremarkable except as noted in HPI and below <Tricia Thompson PA-C - Last Filed: 03/29/21 22:51> PMFSH Past Medical History Medical History: Medical History Anemia Anxiety Arthritis Congenital malrotation of intestine Constipation Depression Diastolic dysfunction Echocardiogram in September 2018 showed normal LV systolic function and size with no wall motion abnormalities, mild concentric LVH, impaired diastolic relaxation grade 1 with an EF visually estimated 60 to 65%. Duplicated urinary collecting system Gastroesophageal reflux disease Hypothyroidism Irritable bowel syndrome Kidney stones Orthostatic hypotension Osteoporosis Parkinson's disease Urinary, incontinence, stress female <Tricia Thompson PA-C - Last Filed: 03/29/21 22:51> Surgical History Surgical History: Surgical History History of appendectomy History of bladder surgery Mid urethral sling. History of bunionectomy of both great toes History of cholecystectomy History of hysterectomy History of lithotripsy History of local excision of skin lesion History of rectal polypectomy History of sacrocolpopexy For s
[2021-03-29 17:54] LABS: Lactic Acid Reflex 0.6 mmol/L (0.7-2.1)
[2021-03-29 17:56] LABS: Alanine Aminotransferase 6 U/L (4-35); Albumin Level 4.6 g/dL (3.5-5.1); Alkaline Phosphatase 140 U/L (38-126); Anion Gap 8 mmol/L (8-16); Aspartate Amino Transferase 20 U/L (14-36); Blood Urea Nitrogen 22 mg/dL (7-17); CRP < 0.5 mg/dL (<1.0); Calcium 9.6 mg/dL (8.4-10.2); Carbon Dioxide 28 mmol/L (22-30); Chloride 101 mmol/L (98-107); Estimated CRCL calculation 38 ml/min; Estimated Glomerular Filt Rate 49; Glucose 108 mg/dL (65-110); Potassium 4.2 mmol/L (3.4-5.0); Prothrombin Time 12.6 Seconds (11.1-14.7); Sodium 137 mmol/L (137-145)
[2021-03-29 18:02] LABS: Partial Thromboplastin Time 26.5 SECONDS (22.3-36.8)
[2021-03-29] MEDS: LACTATED RINGERS 1,000 ML 999 ML IV CONT (18:26)
[2021-03-29 19:04] LABS: Amphetamine Screen Urine Negative (Negative); Barbiturate Screen Urine Negative (Negative); Benzodiazepines Screen Urine Negative (Negative); Cannabinoid Screen Urine Negative (Negative); Cocaine Screen Urine Negative (Negative); Methadone Screen Urine Negative (Negative); Opiate Screen Urine Negative (Negative); Phencyclidine Screen Urine Negative (Negative)
[2021-03-29 19:11] LABS: Add Urine Microscopic? YES; Appearance Urine Clear (Clear); Bilirubin Urine Negative (Negative); Blood Urine Negative (Negative); Color Urine Yellow (Yellow); Glucose Urine UA Negative (Negative); Ketones Urine Trace mg/dL (Negative); Leukocyte Esterase Ur Negative LEU/UL (Negative); Mucus Urine Rare /lpf; Nitrate Urine Negative (Negative); Protein Urine Negative (Negative); RBC Urine 0-2 /hpf (0-2); Specific Grav Ur 1.016 (1.001-1.035)
--- NOTE | 2021-03-29 20:41 | PC.NURSE ---
Pt able to answer name, birthday, and knows current year and that she is in [facility] ER in [place]. However, pt does have intermittent periods of confusion (EX. Pt told this RN she had her last negative covid test when she got back from [place] last week. Pt has not travelled recently.) Pt ambulatory c steady, even, unassisted gait to restroom. Speech clear. Ate boxed lunch provided without difficulty, but repeats questions and while in restroom, accidentally urinated on floor instead of in toilet. Soiled clothing removed and placed in belongings bag. Back to bed with sister at bedside. Will continue to monitor.
[2021-03-29 21:37] LABS: SARS-CoV-2 RNA PCR Negative
--- NOTE | 2021-03-29 23:46 | PC.NURSE ---
Report to KATHERINE Lala for 242.
[2021-03-30] VITALS (13 sets, daily range): BP systolic 80–150; BP diastolic 40–77; PULSE 64–96; RESP 16–18; TEMP 36.1–36.6; O2SAT 96–100
--- NOTE | 2021-03-30 00:05 | ADMGEN ---
This patient, Karyna Edmonds, was admitted to 2 Medical Room 242-01. Patient/family oriented to hospital policies and general routines including ID bracelet, bed and alarms, visiting hours, pain management, procedures, bathroom and other care routines, personal items, smoking policy, room service/diet, and visiting hours. Information on how to activate the Rapid Response Team has been discussed. Patient/Family are encouraged to report perceived risks to care and to ask questions if they do not understand what they are told or what they should do.
--- NOTE | 2021-03-30 00:11 | PM.IMHP ---
H&P: HPI History of Present Illness Date/Time: 03/29/21 22:30 Chief Complaint: Confusion Narrative: 75-year-old female with past medical history of Parkinson's disease with deep brain stimulator, autonomic dysfunction resulting in orthostatic hypotension who presented to the ER via EMS from [facility] due to complaint of confusion. The patient's sisters at bedside and helps to provide history. She reports that the patient's other sister was with her last night and had noticed the patient having occasional confusion. Then today the patient has been having waxing and waning confusion. The patient earlier in the day was only alert oriented to self. At the time of my evaluation the patient was alert oriented x4. ER staff had reported the patient was having some difficulty with word finding. Both the patient and her sister denied the patient having difficulty with word finding. The patient did admit that she was having trouble remembering answers in would pause to think about her responses. Her sister reported that the patient had some rambling speech and was not making much sense in conversation. Her sister reports that the patient has these episodes intermittently in his had 3 or 4 these episodes in the last year. Usually the patient has the same workup each time and is given IV fluids and her symptoms resolved. When EMS was called to the patient's home the patient did not remember why they were calling EMS. She initially did not know why she was in the ER but by the time my evaluation the patient was aware that she was having some confusion. Sister reports that the patient had not had any of her Parkinson's meds thyroid meds or Requip since yesterday afternoon. Since she has arrived to the ER she has received 2 doses of her Sinemet and her Requip. Patient denies having any dysuria, changes in urinary frequency or hematuria. She has not had any cough or congestion. She denies any nausea or vomiting. Her sister reports that the patient does not drink enough water. She reports a good appetite. The patient was having some repetitive questions in the ER. When she went to the bathroom in the ER she urinated on the floor instead of in the toilet. The patient reports that she did have a syncopal event 3 days ago. It is our typical type of syncopal event that she has associated with her on anomic dysfunction. According to triage note the patient had a unresponsive episode that lasted approximately 1 minute prior to EMS being called. The patient's sister thinks that patient had another syncopal event. Her sister reports that the patient had been to [place] during [place] and had returned home March 15. Patient does not have a history of dementia and was actually able to get on a plane and travel to wear her daughter was located and then took a plane with her daughter to [place]. Patient did not have any episodes of confusion while she was out of the country. She had a negative COVID test prior to her trip to [place] in February. She tested negative for COVID in the ER. She received her COVID booster a month or so ago. Review of Systems Review of Systems: 12 systems were reviewed with pertinent positives and negatives per HPI. Except as documented in the HPI, all other systems were reviewed and are negative. [facility] Past Medical History Medical History (Updated 03/30/21 @ 07:03 by Lynda Gongora, ) Anemia Anxiety Arthritis Chronic kidney disease Baseline creatinine 0.9-1 Congenital malrotation of intestine Constipation Depression Diastolic dysfunction Echo 11/2020: LV systolic function lower limit of normal, diastolic dysfunction grade 1, EF 50%, mild enlargement of left ventricular cavity, moderate concentric left ventricular hypertrophy, impaired diastolic relaxation grade 1 with an EF visually estimated 50%, [id number] aortic valve regurgitation, [id number] tricuspid regurgitation Duplicated urina
[2021-03-30] MEDS: SODIUM CHLORIDE 0.9% IV 1,000 ML 100 ML IV CONT ×2 (00:41→15:04)
[2021-03-30] MEDS: CARBIDOPA/LEVODOPA 25/100 MG CR TABLET 2 TABLET PO ×2 (01:39→20:37)
[2021-03-30] MEDS: SENNOSIDES 8.6 MG TABLET 17.2 MG PO ×2 (01:39→20:38)
[2021-03-30] MEDS: LINACLOTIDE 145 MCG CAPSULE 290 MCG PO (06:31)
[2021-03-30] MEDS: LEVOTHYROXINE SODIUM 100 MCG TABLET PO (06:31)
--- NOTE | 2021-03-30 08:47 | PM.IMPN ---
Progress Note: A&P Assessment and Plan (1) Confusion: Code(s): R41.0 - Disorientation, unspecified Status: Acute (2) Acute dehydration: Code(s): E86.0 - Dehydration Status: Acute (3) Parkinson's disease: Code(s): G20 - Parkinson's disease Status: Acute (4) Pyuria: Code(s): R82.81 - Pyuria Status: Acute Additional Plan Patient has been having confusion since the evening of the . She denies any other symptoms. Her sister reports she does not drink enough fluid in patient does appear to be mildly dehydrated on labs. The ER provider felt patient is having some difficulty with word finding. Patient denies difficulty word finding and has no localizing neurologic deficits. She has her baseline Parkinson's tremor. Her sister at bedside has provided the patient with her Sinemet and her Requip that she had not had in 24 hours. Patient is not overly confused at the time of my evaluation. I do not feel the patient has had acute CVA. [facility] her [facility] brain stimulator placed. Subsequently her case was discussed with neurologist phylicia and the patient has been excepted to [facility] but no beds will be available for 24-48 hours. MRI was initially ordered in the ER however this been canceled due to presence of deep brain stimulator. Admit patient to medical floor on telemetry as observation status. Patient does appear to be mildly dehydrated on labs and has been placed on maintenance fluids. Will repeat BMP in a.m.. Patient does have a few white cells in her urine but UA is really quite unremarkable. She is not having any symptoms of UTI. Urine cultures pending. Patient received Rocephin in the ER however will hold off on additional antibiotic therapy until urine cultures returned. Will resume the patient's home Parkinson's medications. 03/30/21 cont current care pt has had extensive syncope workup on midodrine and fludrocortisone x autonomic dysfunction EEG and AMS workup pending transfer to [facility] when bed available cont current care Subjective Date/time seen: 03/30/21 08:47 pt reports that she has been confused since Wednesday night. She is still not back to her baseline and feels strange . She attributes this to missing her medications. She does not remember being on Amitriptyline or when she might have discontinued this medication but she is certain it was not in the last couple of weeks. She denies fever chills HARRELL vision changes meningeal signs. She is advised that neurology is out until next Wednesday and that we will begin AMS workup waiting for them to return and or for her to return to her baseline now on her home medication regimen. Exam Narrative: PHYSICAL EXAM: General: Well-developed, well-nourished, frail HEENT: Mucous membranes moist, no scleral icterus, head is normocephalic atraumatic Respiratory: Clear to auscultation bilaterally, no increased work of breathing Cardiovascular: Regular rate, regular rhythm Gastrointestinal: Soft, nontender, nondistended Skin: no cyanosis no edema no rash no joint abnormalities Musculoskeletal: No clubbing, cyanosis or edema Neurological: mild rigidity, alert oriented x3, speech is clear but slightly slow Psychiatric: Appropriate mood and affect, pleasant and cooperative Hematologic/lymphatic: No petechiae, no bruising, no anterior cervical or submandibular lymphadenopathy Objective Data Vital Signs Vital Signs: Vital Signs - 24 hr 03/29/21 14:06 03/29/21 14:38 03/29/21 17:56 Temperature 97.2 F L Pulse Rate 84 83 Respiratory Rate 18 13 Blood Pressure 142/114 H 153/86 H 153/85 H Pulse Oximetry 100 98 03/29/21 19:00 03/29/21 19:15 03/29/21 19:28 Temperature Pulse Rate 84 86 83 Respiratory Rate 15 17 17 Blood Pressure 160/78 H Pulse Oximetry 98 100 03/29/21 19:30 03/29/21 19:31 03/29/21 19:37 Temperature Pulse Rate 82 83 80 Respiratory Rate 18 16 20
[2021-03-30] MEDS: PANTOPRAZOLE 40 MG TABLET PO ×2 (10:10→17:34)
[2021-03-30] MEDS: CARBIDOPA/LEVODOPA 25/100 MG TABLET 1 TABLET PO ×4 (10:10→20:37)
[2021-03-30] MEDS: FOLIC ACID 1 MG TABLET PO (10:10)
[2021-03-30] MEDS: POTASSIUM CHLORIDE 10 MEQ TABLET.ER PO (10:11)
[2021-03-30] MEDS: FLUDROCORTISONE ACETATE 0.1 MG TABLET PO (10:11)
[2021-03-30] MEDS: rOPINIRole HCL 1 MG TABLET PO ×2 (10:11→17:34)
[2021-03-30] MEDS: polyethylene glycoL 3350 17 GM POWD.PACK PO (10:12)
[2021-03-30] MEDS: CHOLECALCIFEROL 1,000 UNITS TABLET 1000 UNITS PO (10:12)
[2021-03-30 11:04] LABS: Ammonia < 9 umol/L (9-30)
[2021-03-30 13:28] LABS: Alveolar/Arterial O2 Gradient 26.5 mmHg; Base Excess ABG 3.1 mEq/l (+/-2.0); Device ROOM AIR; Fractional Inspired Oxygen 21 %; Modified Allen's Test Pass; Oxygen Saturation ABG 94.5 % (95.0-100.0); Oxyhemoglobin 93.4 % THb (90.0-100.0); PCO2 ABG 43.7 mmHg (35.0-45.0); PO2 ABG 70.9 mmHg (80.0-100.0); PO2 FiO2 Ratio Arterial Blood 3.38 %; Site Drawn RIGHT RADIAL; Total Hemoglobin 12.9 g/dL (12.0-18.0); pH ABG 7.424 (7.350-7.450)
[2021-03-30] MEDS: ACETAMINOPHEN 500 MG TABLET PO (13:38)
[2021-03-30] MEDS: ONDANSETRON INJ 4 MG/2 ML VIAL IV PUSH (13:40)
[2021-03-30] MEDS: clonazePAM (*CRX) 0.25 MG TABLET PO (20:37)
[2021-03-31] VITALS (13 sets, daily range): BP systolic 109–177; BP diastolic 55–92; PULSE 59–72; RESP 18–21; TEMP 35.7–36.4; O2SAT 96–100
[2021-03-31] MEDS: SODIUM CHLORIDE 0.9% IV 1,000 ML 100 ML IV CONT ×2 (00:42→09:21)
[2021-03-31 05:35] LABS: Basophils Percent Auto 0.6 % (0.2-1.2); Eosinophils Percent Auto 1.2 % (0-4.4); Hematocrit 35.3 % (37.0-47.0); Hemoglobin 11.9 g/dL (12.0-15.0); Immature Granulocyte Absolute 0.01 K/mm3 (0.00-0.031); Immature Granulocyte Percent A 0.3 % (0-0.5); Lymphocytes Absolute Auto 1.47 K/mm3 (0.9-3.2); Lymphocytes Percent Auto 43.8 % (18.3-44.2); Mean Corpuscular HGB Conc 33.7 g/dl (32-36); Mean Corpuscular Hemoglobin 33.5 pg (26-34); Mean Corpuscular Volume 99.4 fl (80-100); Mean Platelet Volume 9.7 fl (7.4-10.4); Monocytes Absolute Auto 0.3 K/mm3 (0.1-0.6); Monocytes Percent Auto 8.3 % (2.6-8.5); Neutrophils Absolute Auto 1.5 K/mm3 (1.3-6.7); Neutrophils Percent Auto 45.8 % (45.5-73.1); Platelet Count Result 155 k/mm3 (150-375); Red Blood Count 3.55 M/mm3 (4.2-5.4); Red Cell Distribution Width 12.3 % (11.5-14.5); White Blood Count 3.4 K/mm3 (4.5-10.0)
[2021-03-31 05:54] LABS: Anion Gap 6 mmol/L (8-16); Blood Urea Nitrogen 13 mg/dL (7-17); Calcium 9.4 mg/dL (8.4-10.2); Carbon Dioxide 29 mmol/L (22-30); Chloride 103 mmol/L (98-107); Estimated CRCL calculation 46 ml/min; Estimated Glomerular Filt Rate > 60; Glucose 94 mg/dL (65-110); Magnesium 1.7 mg/dL (1.6-2.3); Potassium 3.4 mmol/L (3.4-5.0); Sodium 138 mmol/L (137-145)
[2021-03-31] MEDS: ACETAMINOPHEN 500 MG TABLET 1000 MG PO (06:27)
[2021-03-31] MEDS: ONDANSETRON INJ 4 MG/2 ML VIAL IV PUSH (06:27)
[2021-03-31] MEDS: LEVOTHYROXINE SODIUM 100 MCG TABLET PO (06:28)
[2021-03-31] MEDS: CARBIDOPA/LEVODOPA 25/100 MG TABLET 1 TABLET PO ×4 (06:29→20:07)
[2021-03-31] MEDS: LINACLOTIDE 145 MCG CAPSULE 290 MCG PO (06:29)
[2021-03-31] MEDS: FOLIC ACID 1 MG TABLET PO (09:13)
[2021-03-31] MEDS: rOPINIRole HCL 1 MG TABLET PO ×2 (09:13→16:59)
[2021-03-31] MEDS: PANTOPRAZOLE 40 MG TABLET PO ×2 (09:13→16:59)
[2021-03-31] MEDS: POTASSIUM CHLORIDE 10 MEQ TABLET.ER PO (09:13)
[2021-03-31] MEDS: CHOLECALCIFEROL 1,000 UNITS TABLET 1000 UNITS PO (09:13)
[2021-03-31] MEDS: MIDODRINE HCL 2.5 MG TABLET 5 MG PO ×2 (09:13→17:04)
[2021-03-31] MEDS: polyethylene glycoL 3350 17 GM POWD.PACK PO (09:14)
[2021-03-31] MEDS: FLUDROCORTISONE ACETATE 0.1 MG TABLET PO (09:14)
[2021-03-31 12:00] LABS: Rapid Plasma Reagin Non-Reactive (NonReactive)
--- NOTE | 2021-03-31 16:52 | PM.IMPN ---
Progress Note: A&P Assessment and Plan (1) Confusion: Code(s): R41.0 - Disorientation, unspecified Status: Acute (2) Acute dehydration: Code(s): E86.0 - Dehydration Status: Acute (3) Parkinson's disease: Code(s): G20 - Parkinson's disease Status: Acute (4) Pyuria: Code(s): R82.81 - Pyuria Status: Acute Additional Plan Patient has been having confusion since the evening of the . She denies any other symptoms. Her sister reports she does not drink enough fluid in patient does appear to be mildly dehydrated on labs. The ER provider felt patient is having some difficulty with word finding. Patient denies difficulty word finding and has no localizing neurologic deficits. She has her baseline Parkinson's tremor. Her sister at bedside has provided the patient with her Sinemet and her Requip that she had not had in 24 hours. Patient is not overly confused at the time of my evaluation. I do not feel the patient has had acute CVA. The patient [facility] she had her deep brain stimulator placed. Subsequently her case was discussed with neurologist phylicia and the patient has been excepted to [facility] but no beds will be available for 24-48 hours. MRI was initially ordered in the ER however this been canceled due to presence of deep brain stimulator. Admit patient to medical floor on telemetry as observation status. Patient does appear to be mildly dehydrated on labs and has been placed on maintenance fluids. Will repeat BMP in a.m.. Patient does have a few white cells in her urine but UA is really quite unremarkable. She is not having any symptoms of UTI. Urine cultures pending. Patient received Rocephin in the ER however will hold off on additional antibiotic therapy until urine cultures returned. Will resume the patient's home Parkinson's medications. 03/30/21 cont current care pt has had extensive syncope workup on midodrine and fludrocortisone x autonomic dysfunction EEG and AMS workup pending transfer to [facility] when bed available cont current care 03/31/21 workup pending Neuro to return tomorrow neuro consult ordered pt appears improved likely multifactorial confusional state cont supporitve care Subjective Date/time seen: 03/31/21 16:52 pt back to baseline, feels that maybe her travel to [place] at end of February returning early April could have contributed to her confusion because she changed all of her medication dosing times. Also thinks that her abrupt cessation of Clonazepam could have caused confusion. Pt advised we will wait for neurology tomorrow to help determine etiology and next plan of care. Exam Narrative: PHYSICAL EXAM: General: Well-developed, well-nourished, frail HEENT: Mucous membranes moist, no scleral icterus, head is normocephalic atraumatic Respiratory: Clear to auscultation bilaterally, no increased work of breathing Cardiovascular: Regular rate, regular rhythm Gastrointestinal: Soft, nontender, nondistended Skin: no cyanosis no edema no rash no joint abnormalities Musculoskeletal: No clubbing, cyanosis or edema Neurological: mild rigidity, alert oriented x3, speech is clear but slightly slow Psychiatric: Appropriate mood and affect, pleasant and cooperative Objective Data Vital Signs Vital Signs: Vital Signs - 24 hr 03/30/21 19:30 03/30/21 20:00 03/30/21 20:55 Temperature 97.8 F 97.8 F Pulse Rate 69 68 Respiratory Rate 18 18 Blood Pressure 105/40 L 105/40 L 84/48 L Pulse Oximetry 97 97 03/30/21 20:56 03/31/21 00:00 03/31/21 03:02 Temperature 96.3 F L Pulse Rate 65 63 Respiratory Rate 18 Blood Pressure 80/45 L 113/55 L Pulse Oximetry 96 03/31/21 04:00 03/31/21 08:00 03/31/21 12:00 Temperature Pulse Rate 59 L 69 70 Respiratory Rate Blood Pressure Pulse Oximetry 03/31/21 14:47 03/31/21 14:50 03/31/21 14:52 Temperature 97.2 F L Pulse Rate 67 67 68 Re
[2021-03-31] MEDS: MAGNESIUM CITRATE 300 ML BTL 150 ML PO (18:31)
[2021-03-31] MEDS: clonazePAM (*CRX) 0.25 MG TABLET PO (20:06)
[2021-03-31] MEDS: CARBIDOPA/LEVODOPA 25/100 MG CR TABLET 2 TABLET PO (20:07)
[2021-04-01] VITALS: PULSE 64
[2021-04-01 04:00] VITALS: PULSE 62
[2021-04-01 05:41] LABS: Basophils Percent Auto 1.1 % (0.2-1.2); Eosinophils Absolute Auto 0.1 K/mm3 (0-0.3); Eosinophils Percent Auto 1.4 % (0-4.4); Hematocrit 34.1 % (37.0-47.0); Hemoglobin 11.6 g/dL (12.0-15.0); Immature Granulocyte Absolute 0.01 K/mm3 (0.00-0.031); Immature Granulocyte Percent A 0.3 % (0-0.5); Lymphocytes Absolute Auto 1.54 K/mm3 (0.9-3.2); Mean Corpuscular Volume 97.2 fl (80-100); Mean Platelet Volume 9.8 fl (7.4-10.4); Monocytes Absolute Auto 0.2 K/mm3 (0.1-0.6); Monocytes Percent Auto 6.5 % (2.6-8.5); Neutrophils Absolute Auto 1.8 K/mm3 (1.3-6.7); Neutrophils Percent Auto 48.7 % (45.5-73.1); Platelet Count Result 181 k/mm3 (150-375); Red Blood Count 3.51 M/mm3 (4.2-5.4); Red Cell Distribution Width 12.3 % (11.5-14.5); White Blood Count 3.7 K/mm3 (4.5-10.0)
[2021-04-01 05:53] LABS: Anion Gap 5 mmol/L (8-16); Blood Urea Nitrogen 10 mg/dL (7-17); CRP < 0.5 mg/dL (<1.0); Calcium 9.3 mg/dL (8.4-10.2); Carbon Dioxide 30 mmol/L (22-30); Chloride 104 mmol/L (98-107); Estimated CRCL calculation 46 ml/min; Estimated Glomerular Filt Rate > 60; Glucose 99 mg/dL (65-110); Magnesium 2.4 mg/dL (1.6-2.3); Potassium 3.6 mmol/L (3.4-5.0); Sodium 139 mmol/L (137-145)
[2021-04-01 06:00] VITALS: BP 180/84; PULSE 63; RESP 18; TEMP 36.6; O2SAT 96
[2021-04-01] MEDS: CARBIDOPA/LEVODOPA 25/100 MG TABLET 1 TABLET PO ×2 (06:19→10:42)
[2021-04-01] MEDS: ACETAMINOPHEN 500 MG TABLET 1000 MG PO (06:19)
[2021-04-01] MEDS: ONDANSETRON INJ 4 MG/2 ML VIAL IV PUSH (06:19)
[2021-04-01] MEDS: LEVOTHYROXINE SODIUM 100 MCG TABLET PO (06:19)
[2021-04-01 08:00] VITALS: PULSE 70
[2021-04-01] MEDS: LINACLOTIDE 145 MCG CAPSULE 290 MCG PO (08:45)
[2021-04-01] MEDS: FLUDROCORTISONE ACETATE 0.1 MG TABLET PO (08:46)
[2021-04-01] MEDS: FOLIC ACID 1 MG TABLET PO (08:46)
[2021-04-01] MEDS: CHOLECALCIFEROL 1,000 UNITS TABLET 1000 UNITS PO (08:46)
[2021-04-01] MEDS: POTASSIUM CHLORIDE 10 MEQ TABLET.ER PO (08:46)
[2021-04-01] MEDS: PANTOPRAZOLE 40 MG TABLET PO (08:47)
[2021-04-01] MEDS: MIDODRINE HCL 2.5 MG TABLET 5 MG PO (08:47)
[2021-04-01] MEDS: lisinopriL 10 MG TABLET PO (08:47)
[2021-04-01] MEDS: polyethylene glycoL 3350 17 GM POWD.PACK PO (08:48)
[2021-04-01] MEDS: rOPINIRole HCL 1 MG TABLET PO (08:48)
--- NOTE | 2021-04-01 09:08 | P.NEURO_ITS ---
Neurology EEG Report General Information Date of Study: 03/31/21 TEST eeg DIAGNOSIS acute encephalopathy CONDITION OF RECORDING awake drowsy and sleep EEG NUMBER [id number] CLINICAL HISTORY patient reported she stopped taking medication last week and she became confused. Feels much better at the time of tracing. EEG DESCRIPTION Background rhythm consists of low to medium voltage 6 to 7 hertz per 2nd theta activity superimposed by low-voltage 15 to 18 hertz per 2nd beta activity. Intermittent 2 to 3 hertz per 2nd delta activity seen more prominent over the left hemisphere as compared to the right. Hyperventilation not done photic stim ulation not done. Non paroxysmal. Focal. Lateralizing. IMPRESSION Abnormal record due to the absence of normal background rhythm activity and the presence of theta and delta activity somewhat more prominent over the left hemispheric linkages. These abnormalities are suggestive of organic or metabolic encephalopathy and the possibility of focal structural lesion or left hemispheric insult cannot be ruled out
[2021-04-01 12:00] VITALS: PULSE 67
--- NOTE | 2021-04-01 12:13 | PM.DS ---
DS: Admitting Diagnosis Discharge Date 04/01/2021 Admitting Diagnosis Confusion. Acute dehydration. Parkinson's disease. Pyuria. DS: Discharge Diagnosis Discharge Diagnosis (1) Confusion: Code(s): R41.0 - Disorientation, unspecified Status: Acute Assessment and Plan: Patient has been having confusion since the evening of the . She denies any other symptoms. Her sister reports she does not drink enough fluid in patient does appear to be mildly dehydrated on labs. The ER provider felt patient is having some difficulty with word finding. Patient denies difficulty word finding and has no localizing neurologic deficits. She has her baseline Parkinson's tremor. Her sister at bedside has provided the patient with her Sinemet and her Requip that she had not had in 24 hours. Patient is not overly confused at the time of my evaluation. I do not feel the patient has had acute CVA. The patient does see Neurosurgery at [facility] where she had her deep brain stimulator placed. Subsequently her case was discussed with neurologist phylicia and the [facility] but no beds will be available for 24-48 hours. MRI was initially ordered in the ER however this been canceled due to presence of deep brain stimulator. Admit patient to medical floor on telemetry as observation status. Patient does appear to be mildly dehydrated on labs and has been placed on maintenance fluids. Will repeat BMP in a.m.. Patient does have a few white cells in her urine but UA is really quite unremarkable. She is not having any symptoms of UTI. Urine cultures pending. Patient received Rocephin in the ER however will hold off on additional antibiotic therapy until urine cultures returned. Will resume the patient's home Parkinson's medications. (2) Acute dehydration: Code(s): E86.0 - Dehydration Status: Acute Assessment and Plan: pt has had extensive syncope workup on midodrine and fludrocortisone x autonomic dysfunction EEG and AMS workup. pt appears improved likely multifactorial confusional state cont supporitve care with IV fluids. On 03/31/21, pt back to baseline, feels that maybe her travel to [place] at end of February returning early April could have contributed to her confusion because she changed all of her medication dosing times. Also thinks that her abrupt cessation of Clonazepam could have caused confusion. Patient is discharged home to the care of her primary neurologist at [facility]. (3) Parkinson's disease: Code(s): G20 - Parkinson's disease Status: Acute Assessment and Plan: REsumed home meds. (4) Pyuria: Code(s): R82.81 - Pyuria Status: Acute Assessment and Plan: not symptomatic. rocephin single dose was given. DS: Summary Hospital Course Reason for hospitalization: Confusion Hospital Course: 75-year-old female with past medical history of Parkinson's disease with deep brain stimulator, autonomic dysfunction resulting in orthostatic hypotension who presented to the ER via EMS from [facility] due to complaint of confusion. The patient's sisters at bedside and helps to provide history. She reports that the patient's other sister was with her last night and had noticed the patient having occasional confusion. Then today the patient has been having waxing and waning confusion. The patient earlier in the day was only alert oriented to self. At the time of my evaluation the patient was alert oriented x4. ER staff had reported the patient was having some difficulty with word finding. Both the patient and her sister denied the patient having difficulty with word finding. The patient did admit that she was having trouble remembering answers in would pause to think about her responses. Her sister reported that the patient had some rambling speech and was not making much sense in conversation. Her sister reports that the patient has these episodes in
--- NOTE | 2021-04-01 14:57 | PC.NURSE ---
Called and talked with patients daughter about patients discharge instructions. Informed the daughter that the patient stated she understood the instructions but this nurse wanted to make sure a family member was informed of the complexities of the discharge and the medications. I instructed the daughter that it was important that the patient follow up with her primary care doctor and her neurologist about the new altered mental status, and the primary care doctor about the blood pressure issues.
[2021-04-02 02:17] LABS: CMV DNA Quant PCR IU/mL Not Detected; Cytomegalovirus DNA Quant PCR Not Detected log IU/mL; Cytomegalovirus DNA Source Plasma
[2021-04-03 14:16] LABS: JC Polyoma Virus DNA, QL Plasma; JC Polyoma Virus Source Not Detected (Not Detected)
[2021-04-04 20:58] LABS: Varicella IgM Antibody 1.55 (<=0.90)
[2021-04-07 21:27] LABS: Coccidioides Ab to F Ag (IgG) NEGATIVE; Coccidioides Ab to TP Ag (IgM) NEGATIVE
--- NOTE | 2021-05-05 09:35 | WPDNEUROPN ---
Subjective Date/time seen: 05/05/21 09:35not seen Objective Data Meds/Results Radiology Results: ITS Impressions Head CT 03/29/21 17:26 IMPRESSION: No acute intracranial findings. Chest X-Ray 03/29/21 17:28 IMPRESSION: Mild cardiomegaly unchanged. Quality VTE Prophylaxis VTE prophylaxis: mechanical ordered (SCDs)
== END 2021-04-01 14:59 | disposition home or self-care (01) | DRG 640 ==
LOC: ANHED 22:45 → ANH2MED 23:03
PROVIDERS: Hospitalist; Physician Assistant; Admitting Provider Internal Medicine; Emergency Provider Emergency Medicine; PCP Family Medicine; Visit Provider Internal Medicine
DX: E86.0 Dehydration (principal); G93.41 Metabolic encephalopathy; G20 Parkinson's disease; R82.81 Pyuria; I95.1 Orthostatic hypotension; Z20.822 Contact with and (suspected) exposure to COVID-19; D64.9 Anemia, unspecified; M19.90 Unspecified osteoarthritis, unspecified site; F41.9 Anxiety disorder, unspecified; K21.9 Gastro-esophageal reflux disease without esophagitis; K58.9 Irritable bowel syndrome, unspecified; M81.0 Age-related osteoporosis without current pathological fracture; N39.3 Stress incontinence (female) (male); E03.9 Hypothyroidism, unspecified; Z90.49 Acquired absence of other specified parts of digestive tract; Z90.710 Acquired absence of both cervix and uterus
CPT/HCPCS: 36415; 36600; 51701; 70450; 71045; 80048; 80053; 80307; 81001; 82040; 82042; 82140; 82784; 82805; 83605; 83735; 83873; 83916; 84443; 85025; 85610; 85730; 86140; 86592; 86635; 86787; 87040; 87086; 87497; 87798; 93005; 95816; 96361; 96374; 96375; 96376; 99285; A9270; C9803; G0378; J0696; J2405; J7030; J7120; U0003; U0005

== ENCOUNTER 2021-04-30 19:04 | Emergency (ER) | payer MEDICARE, OTHER, SELFPAY ==
--- NOTE | ~2021-04-30 | CT_ITS ---
EXAMINATION: CTA chest PE protocol DATE: 04/30/2021 20:33 INDICATION: Shortness of breath TECHNIQUE: Computed tomography (CT) pulmonary angiogram of the chest was performed with 100 mL Omnipa que-350 intravenous contrast. Additional 3D reconstructions utilizing coronal maximum intensity proje ction (MIP) were performed. Automated exposure control and iterative reconstruction technique were em ployed. The dose-length product was 292.08 mGy-cm. COMPARISON: None FINDINGS: Excellent contrast opacification of the pulmonary arteries. There is mild streak artifact from dense contrast in the superior vena cava and right atrium. Mild scattered respiratory motion artifact. No p ulmonary embolism. Mild dependent atelectasis in the bilateral lower lobes. No pneumonia, pulmonary e william, pleural effusion or pneumothorax. Calcified right apical nodule consistent with old granulomato us disease. Heart size is normal. Atherosclerotic coronary artery calcification. No pericardial effus ion. Enlargement of the central pulmonary arteries consistent with pulmonary arterial hypertension. T horacic aorta is normal in caliber. No pathologically enlarged thoracic lymphadenopathy. Cholecystect gary clips in the gallbladder fossa. Thoracic kyphosis with severe spondylosis with anterior fusion at T5-T6.. Chronic mild anterior wedging at T7. Electronic device the anterior left chest wall with alla d extending cephalad along the left neck likely representing a deep brain stimulator. IMPRESSION: 1. No pulmonary embolism or other acute cardiopulmonary disease. Reviewed, dictated and finalized at location A. PRESS [employer]ER
--- NOTE | ~2021-04-30 | XR_ITS ---
EXAMINATION: XR chest 2V DATE: 04/30/2021 19:41 INDICATION: Shortness of breath TECHNIQUE: PA and lateral views of the chest were obtained. COMPARISON: Chest radiograph dated 03/29/2021 FINDINGS: Small calcified nodule at the right apex consistent with old granulomatous disease. No other airspace opacities, pulmonary edema, pleural effusion or pneumothorax. The cardiomediastinal silhouette is no rmal. Cholecystectomy clips in right upper quadrant. Likely deep brain stimulator projects over the l ateral left midlung zone. IMPRESSION: 1. No acute cardiopulmonary disease. Reviewed, dictated and finalized at location A. WARE MAKER
--- NOTE | 2021-04-30 19:07 | ECG_ITS ---
Measurements Intervals [place] Rate: 71 P: 60 MS: 135 QRS: -74 QRSD: 134 T: 34 QT: 400 QTc: 436 Interpretive Statements SINUS RHYTHM WITH INTERMITTENT SHORT MS INTERVAL INTRAVENTRICULAR CONDUCTION DELAY LEFT VENTRICULAR HYPERTROPHY MINIMAL Q WAVES- HIGH LATERAL LEADS BASELINE ARTIFACT- I, II, III, AVR, AVL, AVF, V1-V6 BORDERLINE ECG Electronically Signed On 04-30-2021 21:18:07 [employer] by Abdoulaye Wiseman D.O.
[2021-04-30 19:13] VITALS: BP 155/92; PULSE 75; RESP 16; TEMP 36.3; O2SAT 98
[2021-04-30 19:33] LABS: Basophils Absolute Auto 0.1 K/mm3 (0.0-0.1); Basophils Percent Auto 1.1 % (0.2-1.2); Eosinophils Percent Auto 0.6 % (0-4.4); Hemoglobin 12.6 g/dL (12.0-15.0); Immature Granulocyte Absolute 0.01 K/mm3 (0.00-0.031); Immature Granulocyte Percent A 0.2 % (0-0.5); Lymphocytes Absolute Auto 1.65 K/mm3 (0.9-3.2); Lymphocytes Percent Auto 35.2 % (18.3-44.2); Mean Corpuscular HGB Conc 34.1 g/dl (32-36); Mean Corpuscular Hemoglobin 33.9 pg (26-34); Mean Corpuscular Volume 99.5 fl (80-100); Mean Platelet Volume 9.5 fl (7.4-10.4); Monocytes Absolute Auto 0.3 K/mm3 (0.1-0.6); Monocytes Percent Auto 5.8 % (2.6-8.5); Neutrophils Absolute Auto 2.7 K/mm3 (1.3-6.7); Neutrophils Percent Auto 57.1 % (45.5-73.1); Platelet Count Result 187 k/mm3 (150-375); Red Blood Count 3.72 M/mm3 (4.2-5.4); White Blood Count 4.7 K/mm3 (4.5-10.0)
[2021-04-30 19:42] LABS: Prothrombin Time 12.3 Seconds (11.1-14.7)
[2021-04-30 19:43] LABS: Partial Thromboplastin Time 27.6 SECONDS (22.3-36.8)
[2021-04-30 19:46] LABS: Albumin Level 4.2 g/dL (3.5-5.1); Alkaline Phosphatase 123 U/L (38-126); Anion Gap 5 mmol/L (8-16); Aspartate Amino Transferase 19 U/L (14-36); Bilirubin,Total 0.7 mg/dL (0.2-1.3); Blood Urea Nitrogen 14 mg/dL (7-17); Calcium 9.6 mg/dL (8.4-10.2); Carbon Dioxide 27 mmol/L (22-30); Chloride 103 mmol/L (98-107); Estimated CRCL calculation 52 ml/min; Estimated Glomerular Filt Rate > 60; Glucose 98 mg/dL (65-110); Lipase 155 U/L (23-300); Potassium 4.1 mmol/L (3.4-5.0); Sodium 135 mmol/L (137-145)
[2021-04-30 19:57] LABS: Troponin I < 0.012 ng/mL (0.000-0.034)
--- NOTE | 2021-04-30 20:05 | ED.SOB ---
HPI - SOB/Dyspnea General Chief Complaint: Shortness of Breath/Dyspnea Stated Complaint: sob/headache Time Seen by Provider: 04/30/21 20:05 History of Present Illness HPI Narrative: 75-year-old female presents to the emergency room with acute onset of shortness of breath. Shortness of breath is worse with exertion associated with some chest dullness. Has a history of similar symptoms. History of diastolic dysfunction Related Data Home Medications Medication Instructions Recorded Confirmed carbidopa-levodopa 1 tablet PO HS 02/16/19 04/02/21 cholecalciferol (vitamin D3) 1,000 unit PO DAILY 02/16/19 04/02/21 [Vitamin D3] sennosides [senna] 17.2 mg PO HS 02/17/19 04/02/21 midodrine 5 mg tablet 5 mg PO TID PRN tablet 06/22/19 04/02/21 carbidopa 25 mg-levodopa 100 mg 1 tablet PO QID tablet 09/26/20 04/02/21 tablet ropinirole 2 mg tablet 1 mg PO BID tablet 11/12/20 04/02/21 fludrocortisone 0.1 mg tablet 0.1 mg PO DAILY tablet 12/18/20 04/02/21 omeprazole 20 mg capsule,delayed 40 mg PO BID 12/18/20 04/02/21 release Linzess 290 mcg PO DAILY 02/07/21 04/02/21 acetaminophen [Tylenol] 500 mg PO Q4H PRN 02/07/21 04/02/21 levothyroxine 100 mcg PO DAILY 02/07/21 04/02/21 Allergies Allergy/AdvReac Type Severity Reaction Status Date / Time hydrocodone AdvReac Severe psychosis Verified 04/02/21 14:18 Review of Systems Review of Systems: CONSTITUTIONAL: Denies fever, chills, or sweats. EYES: Denies visual changes, redness, or discharge. ENT: Denies rhinorrhea, congestion, sore throat, or otalgia. CARDIOVASCULAR: Denies chest pain, palpitations, or edema. RESPIRATORY: Denies cough or dyspnea. GASTROINTESTINAL: Denies abdominal pain, nausea, vomiting, or diarrhea. GENITOURINARY: Denies dysuria or hematuria. SKIN: Denies rash or itching. MUSCULOSKELETAL: Denies back pain, joint pain, or myalgia. NEUROLOGIC: Denies headache, numbness, dizziness, or weakness. PSYCHIATRIC: Denies anxiety or depression. [facility] Past Medical History Medical History Anemia Anxiety Arthritis Chronic kidney disease Baseline creatinine 0.9-1 Congenital malrotation of intestine Constipation Depression Diastolic dysfunction Echo 11/2020: LV systolic function lower limit of normal, diastolic dysfunction grade 1, EF 50%, mild enlargement of left ventricular cavity, moderate concentric left ventricular hypertrophy, impaired diastolic relaxation grade 1 with an EF visually estimated 50%, [id number] aortic valve regurgitation, [id number] tricuspid regurgitation Duplicated urinary collecting system Gastroesophageal reflux disease (Unknown) Hypothyroidism Irritable bowel syndrome Kidney stones Orthostatic hypotension Osteoporosis Parkinson's disease Pulmonary hypertension RVSP of 35-40 Urinary, incontinence, stress female Surgical History Surgical History History of appendectomy History of bladder surgery Mid urethral sling. History of bunionectomy of both great toes History of cholecystectomy History of hysterectomy History of lithotripsy History of local excision of skin lesion History of rectal polypectomy History of sacrocolpopexy For symptomatic vaginal vault prolapse. Status post deep brain stimulator placement Family History Family History Mother Carcinoma of colon Father Family history of coronary artery disease Sibling Family history of malignant neoplasm of breast Sibling Acute myocardial infarction Other Breast cancer Social History Social History Social History: The patient is as of 2007 and lives in independent living at [facility]. She has 3 daughters. Lifelong nonsmoker. No alcohol or illicit substance abuse. Her daughter Indigo Gallego is her healthcare power of attorn
[2021-04-30] MEDS: ASPIRIN 81 MG CHEWABLE TABLET 324 MG PO (20:38)
[2021-04-30 21:00] LABS: SARS-CoV-2 RNA PCR Negative
[2021-04-30 21:01] LABS: Alanine Aminotransferase 6 U/L (4-35)
[2021-04-30 23:14] VITALS: BP 149/75; PULSE 71; RESP 18; O2SAT 97
[2021-04-30 23:24] LABS: Troponin I < 0.012 ng/mL (0.000-0.034)
== END 2021-04-30 23:16 | disposition home or self-care (01) ==
PROVIDERS: Emergency Medicine; Emergency Provider Nurse Practitioner Family; PCP Family Medicine
DX: R06.00 Dyspnea, unspecified (principal); Z20.822 Contact with and (suspected) exposure to COVID-19; N18.9 Chronic kidney disease, unspecified; G20 Parkinson's disease; I27.20 Pulmonary hypertension, unspecified; I08.2 Rheumatic disorders of both aortic and tricuspid valves; M19.90 Unspecified osteoarthritis, unspecified site; K21.9 Gastro-esophageal reflux disease without esophagitis; E03.9 Hypothyroidism, unspecified; K58.9 Irritable bowel syndrome, unspecified; M81.0 Age-related osteoporosis without current pathological fracture; R32 Unspecified urinary incontinence; Z86.2 Personal history of diseases of the blood and blood-forming organs and certain disorders involving the immune mechanism; Z87.442 Personal history of urinary calculi; I45.9 Conduction disorder, unspecified; I51.7 Cardiomegaly
CPT/HCPCS: 36415; 71046; 71275; 80053; 83690; 84484; 85025; 85610; 85730; 93005; 99284; A9270; C9803; Q9967; U0003; U0005

== ENCOUNTER 2021-11-25 07:42 | Emergency (ER) | payer MEDICARE, OTHER, SELFPAY ==
[2021-11-25] VITALS (45 sets, daily range): BP systolic 100–171; BP diastolic 58–139; PULSE 55–85; RESP 12–23; TEMP 36.5; O2SAT 96–100
--- NOTE | ~2021-11-25 | XR_ITS ---
EXAMINATION: XR chest 2V DATE: 11/25/2021 08:32 INDICATION: Shortness of breath. COVID 3 weeks prior. TECHNIQUE: PA and lateral views of the chest were obtained. COMPARISON: Chest radiograph and CT dated 04/30/2021 FINDINGS: Unchanged small calcified right apical nodule consistent with old granulomatous disease. Unchanged mi ld streaky lingular atelectasis/scarring at the left costophrenic angle. No new airspace opacities, p ulmonary edema, pleural effusion or pneumothorax. The cardiomediastinal silhouette is normal. Cholecy stectomy clips in right upper quadrant. Likely deep brain stimulator in the left pectoral region with a pair of leads extending cephalad along the left and right sides of the neck. Moderate thoracic kyp hosis with moderate to severe spondylosis and chronic mild anterior wedging of a few upper thoracic v ertebral bodies. IMPRESSION: 1. No acute cardiopulmonary disease. Reviewed, dictated and finalized at location A.
--- NOTE | 2021-11-25 07:59 | ECG_ITS ---
Measurements Intervals [place] Rate: 60 P: 26 [place]: 119 QRS: -28 QRSD: 130 T: 2 QT: 436 QTc: 438 Interpretive Statements SINUS RHYTHM WITH SHORT TX INTERVAL INTRAVENTRICULAR CONDUCTION DELAY LEFT VENTRICULAR HYPERTROPHY AND ST-T CHANGE BORDERLINE T WAVE ABNORMALITY- ANT/INF LEADS BORDERLINE ECG COMPARED TO ECG 04/30/2021 19:11:42 ST (T WAVE) DEVIATION NOW PRESENT Electronically Signed On 11-25-2021 8:46:56 CDT by Abdoulaye Wiseman D.O.
--- NOTE | 2021-11-25 08:01 | ED.GENADULT ---
HPI - General Adult General Chief complaint: Shortness of Breath/Dyspnea Stated complaint: little bit of everything Time Seen by Provider: 11/25/21 08:00 History of Present Illness HPI narrative: 75-year-old female with past medical history of Parkinson's disease with deep brain stimulator, autonomic dysfunction resulting in orthostatic hypotension who presented to the ER for evaluation of shortness of breath and presyncope. Patient states she has felt short of breath on and off for the past week. She had 1 prior syncopal event earlier in the week and this morning began to feel like it may happen again. Related Data Home Medications Medication Instructions Recorded Confirmed carbidopa ER 50 mg-levodopa 200 mg 1 tablet PO HS 02/16/19 05/09/21 tablet,extended release cholecalciferol (vitamin D3) 25 1,000 unit PO DAILY 02/16/19 05/09/21 mcg (1,000 unit) capsule (Vitamin D3) sennosides 8.6 mg tablet (senna) 17.2 mg PO HS 02/17/19 05/09/21 midodrine 5 mg tablet 5 mg PO TID PRN Blood Pressure 06/22/19 05/09/21 carbidopa 25 mg-levodopa 100 mg 1 tablet PO QID 09/26/20 05/09/21 tablet (Sinemet) ropinirole 2 mg tablet 1 mg PO BID 11/12/20 05/09/21 fludrocortisone 0.1 mg tablet 0.1 mg PO DAILY 12/18/20 05/09/21 omeprazole 20 mg capsule,delayed 40 mg PO BID 12/18/20 05/09/21 release acetaminophen 325 mg capsule 500 mg PO Q4H PRN Pain 02/07/21 05/09/21 (Tylenol) levothyroxine 100 mcg tablet 100 mcg PO DAILY 02/07/21 05/09/21 plecanatide 3 mg tablet (Trulance) 3 mg PO DAILY 05/09/21 05/09/21 Allergies Allergy/AdvReac Type Severity Reaction Status Date / Time hydrocodone AdvReac Severe psychosis Verified 11/25/21 07:59 Review of Systems Review of Systems: CONSTITUTIONAL: Denies fever, chills, or sweats. EYES: Denies visual changes, redness, or discharge. ENT: Denies rhinorrhea, congestion, sore throat, or otalgia. CARDIOVASCULAR: Denies chest pain, palpitations, or edema. RESPIRATORY: Denies cough or dyspnea. GASTROINTESTINAL: Denies abdominal pain, nausea, vomiting, or diarrhea. GENITOURINARY: Denies dysuria or hematuria. SKIN: Denies rash or itching. MUSCULOSKELETAL: Denies back pain, joint pain, or myalgia. NEUROLOGIC: Denies headache, numbness, or weakness. PSYCHIATRIC: Denies anxiety or depression. [facility] Past Medical History Medical History Anemia Anxiety Arthritis Chronic kidney disease Baseline creatinine 0.9-1 Congenital malrotation of intestine Constipation Depression Diastolic dysfunction Echo 11/2020: LV systolic function lower limit of normal, diastolic dysfunction grade 1, EF 50%, mild enlargement of left ventricular cavity, moderate concentric left ventricular hypertrophy, impaired diastolic relaxation grade 1 with an EF visually estimated 50%, ectr-[id number] aortic valve regurgitation, [id number] tricuspid regurgitation Duplicated urinary collecting system Gastroesophageal reflux disease (Unknown) Hypothyroidism Irritable bowel syndrome Kidney stones Orthostatic hypotension Osteoporosis Parkinson's disease Pulmonary hypertension RVSP of 35-40 Urinary, incontinence, stress female Surgical History Surgical History History of appendectomy History of bladder surgery Mid urethral sling. History of bunionectomy of both great toes History of cholecystectomy History of hysterectomy History of lithotripsy History of local excision of skin lesion History of rectal polypectomy History of sacrocolpopexy For symptomatic vaginal vault prolapse. Status post deep brain stimulator placement Family History Family History Mother Carcinoma of colon Father Family history of coronary artery disease Sibling Family history of malignant neoplasm of breast Sibling Acute myocardial infarction Other Breast cancer
[2021-11-25 08:14] LABS: Basophils Percent Auto 0.7 % (0.2-1.2); Eosinophils Percent Auto 0.7 % (0-4.4); Hematocrit 37.2 % (37.0-47.0); Hemoglobin 12.6 g/dL (12.0-15.0); Immature Granulocyte Absolute 0.01 K/mm3 (0.00-0.031); Immature Granulocyte Percent A 0.2 % (0-0.5); Lymphocytes Absolute Auto 1.06 K/mm3 (0.9-3.2); Mean Corpuscular HGB Conc 33.9 g/dl (32-36); Mean Corpuscular Hemoglobin 32.6 pg (26-34); Mean Corpuscular Volume 96.1 fl (80-100); Mean Platelet Volume 9.9 fl (7.4-10.4); Monocytes Absolute Auto 0.3 K/mm3 (0.1-0.6); Monocytes Percent Auto 5.9 % (2.6-8.5); Neutrophils Absolute Auto 2.9 K/mm3 (1.3-6.7); Neutrophils Percent Auto 67.5 % (45.5-73.1); Platelet Count Result 220 k/mm3 (150-375); Red Blood Count 3.87 M/mm3 (4.2-5.4); Red Cell Distribution Width 12.6 % (11.5-14.5); White Blood Count 4.2 K/mm3 (4.5-10.0)
[2021-11-25 08:20] LABS: Appearance Urine Cloudy (Clear); Bilirubin Urine 1+ (Negative); Blood Urine 2+ (Negative); Glucose Urine UA Negative (Negative); Ketones Urine Trace mg/dL (Negative); Leukocyte Esterase Ur 3+ LEU/UL (Negative); Nitrate Urine Negative (Negative); Protein Urine 2+ mg/dL (Negative)
[2021-11-25 08:23] LABS: Add Urine Microscopic? YES; Color Urine Dark Yellow (Yellow)
[2021-11-25 08:25] LABS: Alanine Aminotransferase 7 U/L (6-35); Albumin Level 4.3 g/dL (3.5-5.1); Alkaline Phosphatase 119 U/L (38-126); Anion Gap 11 mmol/L (8-16); Aspartate Amino Transferase 18 U/L (14-36); Bacteria Urine Trace /hpf; Bilirubin,Total 0.9 mg/dL (0.2-1.3); Blood Urea Nitrogen 15 mg/dL (7-17); Calcium 9.1 mg/dL (8.4-10.2); Carbon Dioxide 28 mmol/L (22-30); Chloride 100 mmol/L (98-107); Estimated Glomerular Filt Rate > 60; Glucose 110 mg/dL (65-110); Potassium 3.7 mmol/L (3.4-5.0); RBC Urine >75 /hpf (0-2); Sodium 139 mmol/L (137-145); Squamous Epithelial Cell Urine Few /hpf (Few); WBC Clumps Urine Present /HPF; WBC Urine >75 /hpf
== END 2021-11-25 13:50 | disposition home or self-care (01) ==
PROVIDERS: Emergency Provider Emergency Medicine
DX: G20 Parkinson's disease (principal); F41.9 Anxiety disorder, unspecified; K59.01 Slow transit constipation; R82.998 Other abnormal findings in urine; I27.20 Pulmonary hypertension, unspecified; N18.9 Chronic kidney disease, unspecified; E03.9 Hypothyroidism, unspecified; N39.3 Stress incontinence (female) (male); K58.9 Irritable bowel syndrome, unspecified; K21.9 Gastro-esophageal reflux disease without esophagitis; M81.0 Age-related osteoporosis without current pathological fracture; M19.90 Unspecified osteoarthritis, unspecified site; Z96.82 Presence of neurostimulator; Q64.8 Other specified congenital malformations of urinary system; Q43.3 Congenital malformations of intestinal fixation; Z86.2 Personal history of diseases of the blood and blood-forming organs and certain disorders involving the immune mechanism; Z87.442 Personal history of urinary calculi; Z90.710 Acquired absence of both cervix and uterus; Z87.19 Personal history of other diseases of the digestive system; I45.9 Conduction disorder, unspecified; I51.7 Cardiomegaly; R94.31 Abnormal electrocardiogram [ECG] [EKG]
CPT/HCPCS: 36415; 71046; 80053; 81001; 85025; 87077; 87086; 87186; 93005; 99284

== ENCOUNTER 2022-03-14 05:49 | Emergency (ER) | payer MEDICARE, OTHER, SELFPAY ==
--- NOTE | ~2022-03-14 | CT_ITS ---
EXAMINATION: CT brain wo con DATE: 03/14/2022 08:09 INDICATION: Confusion. TECHNIQUE: Computed tomography (CT) of the head was performed without intravenous contrast. The mA wa s adjusted according to patient size. Iterative reconstruction technique was employed. The dose-lengt h product was 605.33 mGy-cm. COMPARISON: Head CT 03/29/2021 FINDINGS: There are bilateral deep brain stimulators. There is no intracranial hemorrhage, acute infa rction, or abnormal intracranial mass lesion. The ventricles are normal in size. There is mild mucosa l thickening in the paranasal sinuses. There is a small left mastoid effusion. IMPRESSION: 1. Normal brain with bilateral deep brain stimulators. Reviewed, dictated and finalized at location A. K WASHER
--- NOTE | ~2022-03-14 | XR_ITS ---
EXAMINATION: XR chest 1V portable DATE: 03/14/2022 10:03 INDICATION: Shortness of breath. Weakness. TECHNIQUE: A single frontal view of the chest was obtained. COMPARISON: Chest 2 views 11/25/2021 FINDINGS: There is no pneumonia, pleural effusion, or pneumothorax. The heart size is normal. There i s an electronic device overlying left chest with deep brain stimulator wires. Surgical clips in the r ight upper quadrant are likely from cholecystectomy. IMPRESSION: 1. No acute cardiopulmonary disease. Reviewed, dictated and finalized at location A. RNATIONAL STUDENT COUNSELOR
[2022-03-14 06:12] VITALS: BP 187/104; PULSE 70; RESP 18; TEMP 35.9
--- NOTE | 2022-03-14 06:18 | ECG_ITS ---
Measurements Intervals [place] Rate: 67 P: -69 MN: 189 QRS: -25 QRSD: 134 T: 93 QT: 404 QTc: 428 Interpretive Statements BASELINE ELECTRICAL ARTIFACT SUSPECT SINUS RHYTHM BORDERLINE LEFT AXIS DEVIATION [QRS AXIS < -20] INTRAVENTRICULAR CONDUCTION DELAY [130+ ms QRS DURATION] LEFT VENTRICULAR HYPERTROPHY AND ST-T CHANGE [VOLTAGE CRITERIA PLUS ST/T ABNORMALITY] COMPARED TO ECG 11/25/2021 07:58:36 NO SIGNIFICANT CHANGE Electronically Signed On 03-14-2022 9:52:47 DIRECTOR NON PROFIT by Pravin Corley M.D.
[2022-03-14 06:21] VITALS: PULSE 68
[2022-03-14 06:34] LABS: Basophils Percent Auto 0.6 % (0.2-1.2); Eosinophils Percent Auto 1.2 % (0-4.4); Hematocrit 37.4 % (37.0-47.0); Hemoglobin 13.1 g/dL (12.0-15.0); Lymphocytes Percent Auto 41.4 % (18.3-44.2); Mean Corpuscular Hemoglobin 33.5 pg (26-34); Mean Corpuscular Volume 95.7 fl (80-100); Mean Platelet Volume 10.2 fl (7.4-10.4); Monocytes Absolute Auto 0.2 K/mm3 (0.1-0.6); Monocytes Percent Auto 7.1 % (2.6-8.5); Neutrophils Absolute Auto 1.7 K/mm3 (1.3-6.7); Neutrophils Percent Auto 49.7 % (45.5-73.1); Platelet Count Result 164 k/mm3 (150-375); Red Blood Count 3.91 M/mm3 (4.2-5.4); Red Cell Distribution Width 12.4 % (11.5-14.5); White Blood Count 3.4 K/mm3 (4.5-10.0)
[2022-03-14 06:42] LABS: Alanine Aminotransferase 7 U/L (6-35); Albumin Level 4.2 g/dL (3.5-5.1); Alkaline Phosphatase 115 U/L (38-126); Anion Gap 5 mmol/L (8-16); Aspartate Amino Transferase 18 U/L (14-36); Blood Urea Nitrogen 18 mg/dL (7-17); Calcium 8.9 mg/dL (8.4-10.2); Carbon Dioxide 32 mmol/L (22-30); Chloride 101 mmol/L (98-107); Estimated Glomerular Filt Rate > 60; Glucose 101 mg/dL (65-110); Potassium 3.3 mmol/L (3.4-5.0); Sodium 138 mmol/L (137-145)
[2022-03-14 07:01] LABS: Add Urine Microscopic? YES; Appearance Urine Clear (Clear); Bilirubin Urine Negative (Negative); Blood Urine Trace-Intact (Negative); Color Urine Yellow (Yellow); Glucose Urine UA Negative (Negative); Ketones Urine Negative (Negative); Leukocyte Esterase Ur Negative LEU/UL (Negative); Nitrate Urine Negative (Negative); Protein Urine Negative (Negative); Specific Grav Ur <= 1.005 (1.001-1.035); Urobilinogen Urine 0.2 mg/dL (<2.0)
[2022-03-14 07:04] LABS: Partial Thromboplastin Time 29.2 SECONDS (22.3-36.8); Prothrombin Time 13.1 Seconds (11.1-14.7)
[2022-03-14 07:19] LABS: Bacteria Urine Trace /hpf; Mucus Urine Rare /lpf; RBC Urine 0-2 /hpf (0-2); Squamous Epithelial Cell Urine Rare /hpf (Few); WBC Urine 0-3 /hpf
--- NOTE | 2022-03-14 07:55 | ED.GENADULT ---
HPI - General Adult General Chief complaint: Altered Mental Status Stated complaint: confusion Time Seen by Provider: 03/14/22 06:55 History of Present Illness HPI narrative: This is a 76-year-old female with history of Parkinson's disorder, ED after brief episode of confusion. Yesterday morning the patient flew back from [place]. Overnight she became confused and called her sister. She believes that she had 1 of her children in bed with her and was having difficulty with her cat. At this time the patient's only complaint is that she feels like every once while she has to take a deep breath to catch her breath. She denies fever, chills, chest pain, abdominal pain, urinary symptoms. She is vaccinated against flu and COVID. She denies numbness tingling weakness to any extremity. She denies lower extremity edema history of blood clots. Related Data Home Medications Medication Instructions Recorded Confirmed carbidopa ER 50 mg-levodopa 200 mg 1 tablet PO HS 02/16/19 05/09/21 tablet,extended release cholecalciferol (vitamin D3) 25 1,000 unit PO DAILY 02/16/19 05/09/21 mcg (1,000 unit) capsule (Vitamin D3) sennosides 8.6 mg tablet (senna) 17.2 mg PO HS 02/17/19 05/09/21 midodrine 5 mg tablet 5 mg PO TID PRN Blood Pressure 06/22/19 05/09/21 carbidopa 25 mg-levodopa 100 mg 1 tablet PO QID 09/26/20 05/09/21 tablet (Sinemet) ropinirole 2 mg tablet 1 mg PO BID 11/12/20 05/09/21 fludrocortisone 0.1 mg tablet 0.1 mg PO DAILY 12/18/20 05/09/21 omeprazole 20 mg capsule,delayed 40 mg PO BID 12/18/20 05/09/21 release acetaminophen 325 mg capsule 500 mg PO Q4H PRN Pain 02/07/21 05/09/21 (Tylenol) plecanatide 3 mg tablet (Trulance) 3 mg PO DAILY 05/09/21 05/09/21 Allergies Allergy/AdvReac Type Severity Reaction Status Date / Time hydrocodone AdvReac Severe psychosis Verified 11/25/21 07:59 Review of Systems Review of Systems: CONSTITUTIONAL: Denies night sweats. EYES: No eye pain ENT: Denies rhinorrhea CARDIOVASCULAR: Denies palpitations RESPIRATORY: Denies hemoptysis GASTROINTESTINAL: Denies hematemesis GENITOURINARY: Denies hematuria. SKIN: Denies rash MUSCULOSKELETAL: Denies myalgia. NEUROLOGIC: Denies weakness. PSYCHIATRIC: Denies delusions [facility] Past Medical History Medical History Anemia Anxiety Arthritis Chronic kidney disease Baseline creatinine 0.9-1 Congenital malrotation of intestine Constipation Depression Diastolic dysfunction Echo 11/2020: LV systolic function lower limit of normal, diastolic dysfunction grade 1, EF 50%, mild enlargement of left ventricular cavity, moderate concentric left ventricular hypertrophy, impaired diastolic relaxation grade 1 with an EF visually estimated 50%, ayra-wm-wntzdnmd aortic valve regurgitation, zrxx-fu-ajlozpka tricuspid regurgitation Duplicated urinary collecting system Gastroesophageal reflux disease (Unknown) Hypothyroidism Irritable bowel syndrome Kidney stones Orthostatic hypotension Osteoporosis Parkinson's disease Pulmonary hypertension RVSP of 35-40 Urinary, incontinence, stress female Surgical History Surgical History History of appendectomy History of bladder surgery Mid urethral sling. History of bunionectomy of both great toes History of cholecystectomy History of hysterectomy History of lithotripsy History of local excision of skin lesion History of rectal polypectomy History of sacrocolpopexy For symptomatic vaginal vault prolapse. Status post deep brain stimulator placement Family History Family History Mother Carcinoma of colon Father Family history of coronary artery disease Sibling Family history of malignant neoplasm of breast Sibling Acute myocardial infarction Other Breast cancer Social History Social History (Reviewed 03/14/22 @ 07:56 by
--- NOTE | 2022-03-14 08:10 | PC.NURSE ---
pt in CT at this time.
[2022-03-14] MEDS: ONDANSETRON INJ 4 MG/2 ML VIAL IV PUSH (08:18)
[2022-03-14] MEDS: SODIUM CHLORIDE 0.9% IV 1,000 ML 999 ML IV CONT (08:18)
[2022-03-14 08:52] LABS: NT Pro B Type Natriuretic Pept 618 pg/mL (5-100); Troponin I < 0.012 ng/mL (0.000-0.034)
[2022-03-14 09:23] LABS: Influenza A QL RT-PCR Negative (Negative); Influenza B QL RT-PCR Negative (Negative); RSV RNA, RT-PCR Negative (Negative); SARS-CoV-2 RNA PCR Negative
[2022-03-14 10:24] LABS: Troponin I < 0.012 ng/mL (0.000-0.034)
[2022-03-14 10:30] VITALS: BP 129/69; PULSE 70; RESP 18; O2SAT 98
[2022-03-14 11:08] VITALS: BP 112/57; PULSE 67; RESP 18; O2SAT 98
== END 2022-03-14 11:10 | disposition home or self-care (01) ==
PROVIDERS: General Practice; Emergency Provider Emergency Medicine; PCP Family Medicine
DX: R41.0 Disorientation, unspecified (principal); Z20.822 Contact with and (suspected) exposure to COVID-19; G20 Parkinson's disease; F41.9 Anxiety disorder, unspecified; N18.9 Chronic kidney disease, unspecified; K21.9 Gastro-esophageal reflux disease without esophagitis; E03.9 Hypothyroidism, unspecified; Z86.2 Personal history of diseases of the blood and blood-forming organs and certain disorders involving the immune mechanism; I51.7 Cardiomegaly; K58.9 Irritable bowel syndrome, unspecified; I27.20 Pulmonary hypertension, unspecified; N39.3 Stress incontinence (female) (male); M81.0 Age-related osteoporosis without current pathological fracture; R06.89 Other abnormalities of breathing; R06.9 Unspecified abnormalities of breathing; Z87.442 Personal history of urinary calculi; I45.9 Conduction disorder, unspecified; R94.31 Abnormal electrocardiogram [ECG] [EKG]; Z90.710 Acquired absence of both cervix and uterus; Z87.19 Personal history of other diseases of the digestive system
CPT/HCPCS: 36415; 70450; 71045; 80053; 81001; 83880; 84484; 85025; 85380; 85610; 85730; 87637; 93005; 96361; 96374; 96375; 99284; J0131; J2405; J7030

== ENCOUNTER → 2022-05-22 12:14 | Outpatient (CLI) | payer MEDICARE, OTHER, SELFPAY ==
--- NOTE | ~2022-05-22 | XR_ITS ---
AP and oblique views of the right ribs Clinical History: Pain Findings: No rib fracture is seen. Osseous alignment is anatomic. Lungs are clear, without focal cons olidation or pleural effusion. Cardiomediastinal contour is within normal limits. Soft tissues are un remarkable. Neurostimulator device present. Impression: No rib fracture is seen. Reviewed, dictated and finalized at location . HES DESIGNER Impression: No rib fracture is seen.
== END ==
PROVIDERS: PCP Family Medicine; Visit Provider Family Medicine
DX: R07.81 Pleurodynia (principal)
CPT/HCPCS: 71101

== ENCOUNTER 2022-06-24 13:16 | Outpatient (CLI) | payer MEDICARE, OTHER, SELFPAY ==
--- NOTE | ~2022-06-24 | XR_ITS ---
[id number] 06/24/2022 13:49 Indication: Neck pain Procedure: 5 views cervical spine Comparison: 04/21/2018 Findings: Accentuated cervical lordosis. Vertebral body heights are maintained. There is disc narrowi ng at C4-5 and C6-7. No prevertebral soft tissue swelling. There is mild multilevel facet hypertrophy . Lung apices are normal. Odontoid process is unremarkable. Impression: 1: Mild cervical spondylosis. Reviewed, dictated and finalized at location B. Impression: 1: Mild cervical spondylosis.
== END 2022-06-24 13:17 | disposition home or self-care (01) ==
PROVIDERS: PCP Family Medicine; Visit Provider Nurse Practitioner Adult Health
DX: M54.2 Cervicalgia (principal); M43.02 Spondylolysis, cervical region
CPT/HCPCS: 72040

== ENCOUNTER 2022-08-13 14:23 | Emergency (ER) | payer MEDICARE, OTHER, SELFPAY ==
[2022-08-13] VITALS (17 sets, daily range): BP systolic 110–177; BP diastolic 62–114; PULSE 68–77; RESP 11–22; O2SAT 94–100
--- NOTE | ~2022-08-13 | CT_ITS ---
EXAMINATION: CT brain wo con DATE: 08/13/2022 16:47 INDICATION: Altered mental status. Dizziness and confusion. TECHNIQUE: Computed tomography (CT) of the head was performed without intravenous contrast. The mA wa s adjusted according to patient size. Iterative reconstruction technique was employed. The dose-lengt h product was 605.33 mGy-cm. COMPARISON: Head CT 03/14/2022 FINDINGS: There are bilateral deep brain stimulators. There is no intracranial hemorrhage, acute infa rction, or abnormal intracranial mass lesion. The ventricles are normal in size. The paranasal sinuse s are clear. The orbits are normal. The mastoid air cells are normal. IMPRESSION: 1. Normal brain with bilateral deep brain stimulators. Reviewed, dictated and finalized at location A.
--- NOTE | 2022-08-13 14:48 | ECG_ITS ---
Measurements Intervals [place] Rate: 70 P: 4 [place]: 98 QRS: -50 QRSD: 137 T: -28 QT: 459 QTc: 497 Interpretive Statements SINUS RHYYTHM WITH PREMATURE ATRIAL COMPLEXES MARKED LEFT AXIS DEVIATION [QRS AXIS < -30] INTRAVENTRICULAR CONDUCTION DELAY [130+ ms QRS DURATION] VOLTAGE CRITERIA FOR LVH [MEETS CRITERIA IN ONE OF: R(aVL), S(V1), R(V5), R(V5/V6)+S(V1)] COMPARED TO ECG 03/14/2022 06:20:26 NO SIGNIFICANT CHANGES Electronically Signed On 08-13-2022 15:37:24 CDT by Anastasia Will M.D.
[2022-08-13 15:15] LABS: Basophils Percent Auto 0.4 % (0.2-1.2); Eosinophils Percent Auto 0.4 % (0-4.4); Hematocrit 39.5 % (37.0-47.0); Hemoglobin 13.3 g/dL (12.0-15.0); Immature Granulocyte Absolute 0.01 K/mm3 (0.00-0.031); Immature Granulocyte Percent A 0.2 % (0-0.5); Lymphocytes Percent Auto 31.6 % (18.3-44.2); Mean Corpuscular HGB Conc 33.7 g/dl (32-36); Mean Corpuscular Hemoglobin 33.5 pg (26-34); Mean Corpuscular Volume 99.5 fl (80-100); Mean Platelet Volume 9.6 fl (7.4-10.4); Monocytes Absolute Auto 0.3 K/mm3 (0.1-0.6); Monocytes Percent Auto 5.7 % (2.6-8.5); Neutrophils Absolute Auto 2.9 K/mm3 (1.3-6.7); Neutrophils Percent Auto 61.7 % (45.5-73.1); Platelet Count Result 171 k/mm3 (150-375); Red Blood Count 3.97 M/mm3 (4.2-5.4); Red Cell Distribution Width 12.6 % (11.5-14.5); White Blood Count 4.8 K/mm3 (4.5-10.0)
[2022-08-13 15:24] LABS: Alanine Aminotransferase 8 U/L (6-35); Albumin Level 4.3 g/dL (3.5-5.1); Alkaline Phosphatase 100 U/L (38-126); Anion Gap 6 mmol/L (8-16); Aspartate Amino Transferase 19 U/L (14-36); Bilirubin,Total 0.8 mg/dL (0.2-1.3); Blood Urea Nitrogen 19 mg/dL (7-17); Calcium 8.6 mg/dL (8.4-10.2); Carbon Dioxide 31 mmol/L (22-30); Chloride 101 mmol/L (98-107); Estimated CRCL calculation 36 ml/min; Estimated Glomerular Filt Rate 48; Glucose 79 mg/dL (65-110); Potassium 3.6 mmol/L (3.4-5.0); Sodium 138 mmol/L (137-145)
[2022-08-13 15:27] LABS: INR 0.9
[2022-08-13 15:28] LABS: Partial Thromboplastin Time 29.5 SECONDS (22.3-36.8)
[2022-08-13 15:46] LABS: Add Urine Microscopic? YES; Appearance Urine Clear (Clear); Bacteria Urine None Seen /hpf; Bilirubin Urine Negative (Negative); Blood Urine Negative (Negative); Color Urine Yellow (Yellow); Glucose Urine UA Negative (Negative); Ketones Urine Negative (Negative); Leukocyte Esterase Ur 1+ LEU/UL (Negative); Need Manual Microscopic Reviewed; Nitrate Urine Negative (Negative); Non Pathogenic Casts 0-2; Protein Urine Negative (Negative); RBC Urine 0-2 /hpf (0-2); Specific Grav Ur 1.009 (1.001-1.035); Squamous Epithelial Cell Urine None seen /hpf (Few); WBC Urine 0-5 /hpf; pH Urine 5.5 (5.0-9.0)
--- NOTE | 2022-08-13 17:15 | ED.AMS ---
HPI - Altered Mental Status General Chief Complaint: Altered Mental Status Stated Complaint: confusion, requesting scan of my brain. Time Seen by Provider: 08/13/22 16:28 History of Present Illness HPI narrative: Patient is a 77-year-old female with a history of Parkinson's presenting with confusion. Patient states that she was in a meeting earlier today when she stood up and felt faint and confused. States that it felt a bit like the room was spinning and she did not know which direction to go. She sat down and the sensation resolved. States that she had a similar episode last week after she bent over. States that currently she feels generally tired but otherwise denies complaints. No focal numbness or weakness, vision changes, speech changes. No chest pain or shortness of breath, abdominal pain, vomiting, leg swelling. No dysuria. Related Data Home Medications Medication Instructions Recorded Confirmed carbidopa ER 50 mg-levodopa 200 mg 1 tablet PO HS 02/16/19 05/09/21 tablet,extended release cholecalciferol (vitamin D3) 25 1,000 unit PO DAILY 02/16/19 05/09/21 mcg (1,000 unit) capsule (Vitamin D3) sennosides 8.6 mg tablet (senna) 17.2 mg PO HS 02/17/19 05/09/21 midodrine 5 mg tablet 5 mg PO TID PRN Blood Pressure 06/22/19 05/09/21 carbidopa 25 mg-levodopa 100 mg 1 tablet PO QID 09/26/20 05/09/21 tablet (Sinemet) ropinirole 2 mg tablet 1 mg PO BID 11/12/20 05/09/21 fludrocortisone 0.1 mg tablet 0.1 mg PO DAILY 12/18/20 05/09/21 omeprazole 20 mg capsule,delayed 40 mg PO BID 12/18/20 05/09/21 release acetaminophen 325 mg capsule 500 mg PO Q4H PRN Pain 02/07/21 05/09/21 (Tylenol) plecanatide 3 mg tablet (Trulance) 3 mg PO DAILY 05/09/21 05/09/21 Allergies Allergy/AdvReac Type Severity Reaction Status Date / Time hydrocodone AdvReac Severe psychosis Verified 08/13/22 16:22 Review of Systems Review of Systems: All systems reviewed & are unremarkable except as noted in HPI and below PMFSH Past Medical History Medical History Anemia Anxiety Arthritis Chronic kidney disease Baseline creatinine 0.9-1 Congenital malrotation of intestine Constipation Depression Diastolic dysfunction Echo 11/2020: LV systolic function lower limit of normal, diastolic dysfunction grade 1, EF 50%, mild enlargement of left ventricular cavity, moderate concentric left ventricular hypertrophy, impaired diastolic relaxation grade 1 with an EF visually estimated 50%, anjw-hb-vcnctxot aortic valve regurgitation, ccog-gu-jcdwhhjk tricuspid regurgitation Duplicated urinary collecting system Gastroesophageal reflux disease (Unknown) Hypothyroidism Irritable bowel syndrome Kidney stones Orthostatic hypotension Osteoporosis Parkinson's disease Pulmonary hypertension RVSP of 35-40 Urinary, incontinence, stress female Surgical History Surgical History History of appendectomy History of bladder surgery Mid urethral sling. History of bunionectomy of both great toes History of cholecystectomy History of hysterectomy History of lithotripsy History of local excision of skin lesion History of rectal polypectomy History of sacrocolpopexy For symptomatic vaginal vault prolapse. Status post deep brain stimulator placement Family History Family History Mother Carcinoma of colon Father Family history of coronary artery disease Sibling Family history of malignant neoplasm of breast Sibling Acute myocardial infarction Other Breast cancer Social History Social History Social History: The patient is as of 2007 and lives in independent living at [place]. She has 3 daughters. Lifelong nonsmoker. No alcohol or illicit substance abuse. Her daughter Indigo Gallego is her healthcare susana
[2022-08-13] MEDS: SODIUM CHLORIDE 0.9% IV 1,000 ML 999 ML IV CONT (17:50)
== END 2022-08-13 20:28 | disposition home or self-care (01) ==
PROVIDERS: Emergency Provider Emergency Medicine; PCP Family Medicine
DX: R41.0 Disorientation, unspecified (principal); E86.0 Dehydration; G20 Parkinson's disease; N18.9 Chronic kidney disease, unspecified; I27.20 Pulmonary hypertension, unspecified; E03.9 Hypothyroidism, unspecified; N39.3 Stress incontinence (female) (male); K21.9 Gastro-esophageal reflux disease without esophagitis; K58.9 Irritable bowel syndrome, unspecified; M81.0 Age-related osteoporosis without current pathological fracture; M19.90 Unspecified osteoarthritis, unspecified site; Q64.8 Other specified congenital malformations of urinary system; Q43.3 Congenital malformations of intestinal fixation; Z96.82 Presence of neurostimulator; Z86.2 Personal history of diseases of the blood and blood-forming organs and certain disorders involving the immune mechanism; Z87.442 Personal history of urinary calculi; Z90.49 Acquired absence of other specified parts of digestive tract; Z90.710 Acquired absence of both cervix and uterus; I45.9 Conduction disorder, unspecified
CPT/HCPCS: 36415; 70450; 80053; 81001; 85025; 85610; 85730; 93005; 96360; 96361; 99284; J7030

== ENCOUNTER 2022-08-25 09:28 | Outpatient (CLI) | payer MEDICARE, OTHER, SELFPAY ==
--- NOTE | ~2022-08-25 | MM_ITS ---
EXAMINATION: MM screening sara BI w nicol HISTORY: Screening mammogram TECHNIQUE: Craniocaudal and mediolateral oblique 3-D tomosynthesis images were obtained and synthetic 2-D images were generated. CAD analysis was submitted and interpreted. COMPARISON: 01/17/2019, 01/06/2018, 12/21/2016 bilateral screening mammogram examinations BREAST PARENCHYMAL COMPOSITION: There are scattered areas of fibroglandular density. FINDINGS: There is no evidence of suspicious mass, calcification, or architectural distortion to sugg est malignancy in either breast. There has been no suspicious interval change. IMPRESSION: 1. No mammographic evidence of malignancy. 2. Recommend routine screening mammography in one year. BI-RADS Category 1: Negative Reviewed, dictated and finalized at location A.
== END 2022-08-25 09:29 | disposition home or self-care (01) ==
PROVIDERS: PCP Family Medicine; Visit Provider Family Medicine
DX: Z12.31 Encounter for screening mammogram for malignant neoplasm of breast (principal)
CPT/HCPCS: 77063; 77067

== ENCOUNTER 2022-09-21 12:28 | Emergency (ER) | payer MEDICARE, OTHER, SELFPAY ==
[2022-09-21] VITALS (19 sets, daily range): BP systolic 153–184; BP diastolic 86–105; PULSE 63–72; RESP 12–19; TEMP 36.4; O2SAT 95–100
--- NOTE | ~2022-09-21 | CT_ITS ---
EXAMINATION: CT brain wo con DATE: 09/21/2022 14:18 INDICATION: Altered mental status. TECHNIQUE: Computed tomography (CT) of the head was performed without intravenous contrast. The mA wa s adjusted according to patient size. Iterative reconstruction technique was employed. The dose-lengt h product was 605.33 mGy-cm. COMPARISON: Head CT 08/13/2022 FINDINGS: There are bilateral deep brain stimulators. There is no intracranial hemorrhage, acute infa rction, or abnormal intracranial mass lesion. The ventricles are normal in size. The ventricles are normal in size. There is mild mucosal thickening in the paranasal sinuses. The orbits are normal. The re is a trace left mastoid effusion. IMPRESSION: 1. Normal brain with bilateral deep brain stimulators. Reviewed, dictated and finalized at location E.
--- NOTE | ~2022-09-21 | XR_ITS ---
EXAMINATION: XR chest 2V DATE: 09/21/2022 14:45 INDICATION: Altered mental status TECHNIQUE: AP and lateral views of the chest are obtained. COMPARISON: 05/22/2022 FINDINGS: The lungs are free of acute opacities. No pleural effusion or pneumothorax. The cardiomedia stinal silhouette is normal. There is moderate thoracic spondylosis. There is an electronic device of the left chest wall with leads coursing into the neck beyond the superior margin of the radiograph. Surgical clips in the upper abdomen on the lateral view are likely from prior cholecystectomy. IMPRESSION: 1. No acute cardiopulmonary abnormality. Reviewed, dictated and finalized at location B.
--- NOTE | 2022-09-21 12:52 | ECG_ITS ---
Measurements Intervals [place] Rate: 64 P: 28 [place]: 116 QRS: -20 QRSD: 130 T: -10 QT: 413 QTc: 427 Interpretive Statements SINUS RHYTHM WITH SHORT CA INTERVAL LEFT VENTRICULAR HYPERTROPHY AND ST-T CHANGE BORDERLINE T WAVE ABNORMALITY- INF/LAT LEADS BASELINE ARTIFACT- I, II, III, AVR, AVL, AVF, V1, V4, V6 BORDERLINE ECG COMPARED TO ECG 08/13/2022 14:59:40 T WAVE DEVIATION NOW PRESENT Electronically Signed On 09-21-2022 13:12:29 CDT by Abdoulaye Wiseman D.O.
--- NOTE | 2022-09-21 13:05 | PC.NURSE ---
bladder scanned at this time and found 316mL
[2022-09-21 13:09] LABS: Basophils Percent Auto 0.4 % (0.2-1.2); Eosinophils Percent Auto 0.4 % (0-4.4); Hematocrit 40.2 % (37.0-47.0); Hemoglobin 13.5 g/dL (12.0-15.0); Immature Granulocyte Absolute 0.01 K/mm3 (0.00-0.031); Immature Granulocyte Percent A 0.2 % (0-0.5); Lymphocytes Absolute Auto 1.19 K/mm3 (0.9-3.2); Lymphocytes Percent Auto 25.8 % (18.3-44.2); Mean Corpuscular HGB Conc 33.6 g/dl (32-36); Mean Corpuscular Hemoglobin 33.3 pg (26-34); Mean Platelet Volume 9.4 fl (7.4-10.4); Monocytes Absolute Auto 0.3 K/mm3 (0.1-0.6); Monocytes Percent Auto 6.3 % (2.6-8.5); Neutrophils Absolute Auto 3.1 K/mm3 (1.3-6.7); Neutrophils Percent Auto 66.9 % (45.5-73.1); Platelet Count Result 171 k/mm3 (150-375); Red Blood Count 4.06 M/mm3 (4.2-5.4); Red Cell Distribution Width 12.8 % (11.5-14.5); White Blood Count 4.6 K/mm3 (4.5-10.0)
[2022-09-21 13:18] LABS: Alanine Aminotransferase 10 U/L (6-35); Albumin Level 4.1 g/dL (3.5-5.1); Alkaline Phosphatase 111 U/L (38-126); Anion Gap 2 mmol/L (8-16); Aspartate Amino Transferase 19 U/L (14-36); Bilirubin,Total 0.9 mg/dL (0.2-1.3); Blood Urea Nitrogen 16 mg/dL (7-17); Carbon Dioxide 32 mmol/L (22-30); Chloride 100 mmol/L (98-107); Estimated CRCL calculation 39 ml/min; Estimated Glomerular Filt Rate > 60; Glucose 108 mg/dL (65-110); Partial Thromboplastin Time 27.4 SECONDS (22.3-36.8); Potassium 3.8 mmol/L (3.4-5.0); Prothrombin Time 13.1 Seconds (11.1-14.7); Sodium 134 mmol/L (137-145)
[2022-09-21 13:37] LABS: Appearance Urine Clear (Clear); Bacteria Urine None Seen /hpf; Bilirubin Urine Negative (Negative); Blood Urine Negative (Negative); Color Urine Yellow (Yellow); Glucose Urine UA Negative (Negative); Ketones Urine Negative (Negative); Leukocyte Esterase Ur 1+ LEU/UL (Negative); Need Manual Microscopic Reviewed; Nitrate Urine Negative (Negative); Protein Urine Negative (Negative); RBC Urine 0-2 /hpf (0-2); Specific Grav Ur 1.008 (1.001-1.035); Squamous Epithelial Cell Urine Occasional /hpf (Few); WBC Urine 0-5 /hpf
[2022-09-21 13:39] LABS: Add Urine Microscopic? YES
--- NOTE | 2022-09-21 14:27 | ED.AMS ---
HPI - Altered Mental Status General Chief Complaint: Altered Mental Status Stated Complaint: confusion Time Seen by Provider: 09/21/22 13:33 History of Present Illness HPI narrative: This is a 77-year-old female with past history of Parkinson's status post deep brain stimulator placement the most recent in July of this year, who presents to the emergency department complaining of confusion for the past day. She denies any weakness or numbness but does have some headache. She states headaches have occurred since placement of her deep brain stimulator but she was reassured by her surgeon (Dr. Armenta at [facility]). She has no other complaints today. Related Data Home Medications Medication Instructions Recorded Confirmed carbidopa ER 50 mg-levodopa 200 mg 1 tablet PO HS 02/16/19 05/09/21 tablet,extended release cholecalciferol (vitamin D3) 25 1,000 unit PO DAILY 02/16/19 05/09/21 mcg (1,000 unit) capsule (Vitamin D3) sennosides 8.6 mg tablet (senna) 17.2 mg PO HS 02/17/19 05/09/21 midodrine 5 mg tablet 5 mg PO TID PRN Blood Pressure 06/22/19 05/09/21 carbidopa 25 mg-levodopa 100 mg 1 tablet PO QID 09/26/20 05/09/21 tablet (Sinemet) ropinirole 2 mg tablet 1 mg PO BID 11/12/20 05/09/21 fludrocortisone 0.1 mg tablet 0.1 mg PO DAILY 12/18/20 05/09/21 omeprazole 20 mg capsule,delayed 40 mg PO BID 12/18/20 05/09/21 release acetaminophen 325 mg capsule 500 mg PO Q4H PRN Pain 02/07/21 05/09/21 (Tylenol) plecanatide 3 mg tablet (Trulance) 3 mg PO DAILY 05/09/21 05/09/21 Allergies Allergy/AdvReac Type Severity Reaction Status Date / Time hydrocodone AdvReac Severe psychosis Verified 08/13/22 16:22 Review of Systems Review of Systems: CONSTITUTIONAL: Denies fever, chills, or sweats. EYES: Denies visual changes, redness, or discharge. ENT: Denies rhinorrhea, congestion, sore throat, or otalgia. CARDIOVASCULAR: Denies chest pain, palpitations, or edema. RESPIRATORY: Denies cough or dyspnea. GASTROINTESTINAL: Denies abdominal pain, nausea, vomiting, or diarrhea. GENITOURINARY: Denies dysuria or hematuria. SKIN: Denies rash or itching. MUSCULOSKELETAL: Denies back pain, joint pain, or myalgia. NEUROLOGIC: Chronic headache, confusion denies numbness, dizziness, or weakness. PSYCHIATRIC: Denies anxiety or depression. [facility] Past Medical History Medical History Anemia Anxiety Arthritis Chronic kidney disease Baseline creatinine 0.9-1 Congenital malrotation of intestine Constipation Depression Diastolic dysfunction Echo 11/2020: LV systolic function lower limit of normal, diastolic dysfunction grade 1, EF 50%, mild enlargement of left ventricular cavity, moderate concentric left ventricular hypertrophy, impaired diastolic relaxation grade 1 with an EF visually estimated 50%, pibi-vj-vkxigzoq aortic valve regurgitation, [id number]-au-avkmdesz tricuspid regurgitation Duplicated urinary collecting system Gastroesophageal reflux disease (Unknown) Hypothyroidism Irritable bowel syndrome Kidney stones Orthostatic hypotension Osteoporosis Parkinson's disease Pulmonary hypertension RVSP of 35-40 Urinary, incontinence, stress female Surgical History Surgical History History of appendectomy History of bladder surgery Mid urethral sling. History of bunionectomy of both great toes History of cholecystectomy History of hysterectomy History of lithotripsy History of local excision of skin lesion History of rectal polypectomy History of sacrocolpopexy For symptomatic vaginal vault prolapse. Status post deep brain stimulator placement Family History Family History Mother Carcinoma of colon Father Family history of coronary artery disease Sibling Family history of malignant neoplasm of breast Sibling Acute myocardial infarction
--- NOTE | 2022-09-21 16:06 | PC.NURSE ---
notified MD Reid of patient blood pressure being 181/97. stated to given Tylenol for patient headache at this time and monitor blood pressure after about 30 minutes.
[2022-09-21] MEDS: ACETAMINOPHEN 500 MG TABLET 1000 MG PO (16:09)
== END 2022-09-21 17:21 | disposition home or self-care (01) ==
PROVIDERS: Emergency Provider Preventive Medicine Aerospace Medicine; PCP Family Medicine
DX: R41.0 Disorientation, unspecified (principal); N18.9 Chronic kidney disease, unspecified; E03.9 Hypothyroidism, unspecified; G20 Parkinson's disease
CPT/HCPCS: 36415; 70450; 71046; 80053; 81001; 84443; 85025; 85610; 85730; 93005; 99284; A9270

== ENCOUNTER 2022-10-24 12:15 | Emergency (ER) | payer MEDICARE, OTHER, SELFPAY ==
--- NOTE | ~2022-10-24 | XR_ITS ---
EXAMINATION: XR chest 2V DATE: 10/24/2022 12:49 INDICATION: Altered mental status TECHNIQUE: Frontal and lateral views of the chest are obtained COMPARISON: 09/21/2022 FINDINGS: The lungs are free of acute opacities. No pleural effusion or pneumothorax. The cardiomedia stinal silhouette is normal. There is moderate thoracic spondylosis. A deep brain stimulator is noted . Surgical clips in the right upper quadrant are likely from prior cholecystectomy. IMPRESSION: 1. No acute cardiopulmonary abnormality. Reviewed, dictated and finalized at location A.
--- NOTE | ~2022-10-24 | CT_ITS ---
EXAMINATION: CT brain wo con INDICATION: Altered mental status COMPARISON: 09/21/2022 TECHNIQUE: Standard unenhanced head CT. The dose-length product (DLP) was 756.67 mGy-cm. The mA was a djusted according to patient size. Iterative reconstruction technique was employed. FINDINGS: There is no acute intraparenchymal hemorrhage. No evidence of mass lesion. No evidence of a cute infarction. There is mild periventricular and subcortical hypodensity probably related to small vessel ischemic disease. Bilateral deep brain stimulator is noted. There is mild prominence of the ojeda lci and ventricles related to cerebral atrophy. Intracranial calcified cerebral atherosclerosis is no ant. There are no extra-axial collections. There is no mass effect or midline shift. The orbits and s oft tissues are unremarkable. The visualized sinuses and mastoid air cells are well aerated. IMPRESSION: 1. No acute intracranial abnormality. 2. Age related findings. Reviewed, dictated and finalized at location A.
--- NOTE | 2022-10-24 12:18 | ECG_ITS ---
Rate HI QRSd QT QTc P QRS T Severity 72 131 142 405 444 67 -72 100 Abnormal ECG SINUS RHYTHM WITH OCCASIONAL VENTRICULAR PREMATURE COMPLEXES BASELINE ARTIFACT LEFT AXIS DEVIATION INTRAVENTRICULAR CONDUCTION DELAY [130+ ms QRS DURATION] BORDERLINE ECG COMPARED TO ECG 09/21/2022 12:55:26 WERE NO SIGNIFICANT CHANGES Electronically Signed On 10-26-2022 15:28:30 CDT by Piyush CROOKS
[2022-10-24 12:19] VITALS: BP 149/93; PULSE 83; RESP 16; TEMP 36.5; O2SAT 97
[2022-10-24 12:35] VITALS: PULSE 72
[2022-10-24 12:36] LABS: Basophils Percent Auto 0.5 % (0.2-1.2); Eosinophils Percent Auto 0.5 % (0-4.4); Hematocrit 38.4 % (37.0-47.0); Hemoglobin 13.1 g/dL (12.0-15.0); Immature Granulocyte Absolute 0.01 K/mm3 (0.00-0.031); Immature Granulocyte Percent A 0.3 % (0-0.5); Mean Corpuscular HGB Conc 34.1 g/dl (32-36); Mean Corpuscular Hemoglobin 33.6 pg (26-34); Mean Corpuscular Volume 98.5 fl (80-100); Mean Platelet Volume 9.8 fl (7.4-10.4); Monocytes Absolute Auto 0.3 K/mm3 (0.1-0.6); Monocytes Percent Auto 6.8 % (2.6-8.5); Neutrophils Absolute Auto 2.9 K/mm3 (1.3-6.7); Neutrophils Percent Auto 71.9 % (45.5-73.1); Platelet Count Result 170 k/mm3 (150-375); Red Cell Distribution Width 12.3 % (11.5-14.5)
[2022-10-24 12:48] LABS: Alanine Aminotransferase 11 U/L (6-35); Albumin Level 4.1 g/dL (3.5-5.1); Alkaline Phosphatase 94 U/L (38-126); Anion Gap 2 mmol/L (8-16); Aspartate Amino Transferase 21 U/L (14-36); Bilirubin,Total 1.2 mg/dL (0.2-1.3); Blood Urea Nitrogen 25 mg/dL (7-17); Calcium 9.1 mg/dL (8.4-10.2); Carbon Dioxide 32 mmol/L (22-30); Chloride 102 mmol/L (98-107); Estimated Glomerular Filt Rate 48; Glucose 119 mg/dL (65-110); Potassium 3.9 mmol/L (3.4-5.0); Sodium 136 mmol/L (137-145)
[2022-10-24 12:52] LABS: Prothrombin Time 13.2 Seconds (11.1-14.7)
[2022-10-24 12:53] LABS: Partial Thromboplastin Time 24.2 SECONDS (22.3-36.8)
--- NOTE | 2022-10-24 12:55 | ED.AMS ---
HPI - Altered Mental Status General Chief Complaint: Altered Mental Status Stated Complaint: increased confusion History of Present Illness HPI narrative: This is a 77-year-old female, with past history of Parkinson's, brought in by EMS from home for an episode of confusion. EMS reports the patient was with family with last known well of 08:00. Family members reportedly stepped away for momentarily and when they returned the patient appeared confused. EMS reports the patient was oriented to self and time but not to location. She was reportedly neurologically intact with normal vital signs and fingerstick glucose in the 140s. The patient is not sure what happened. She has no complaints at this time. Related Data Home Medications Medication Instructions Recorded Confirmed carbidopa ER 50 mg-levodopa 200 mg 1 tablet PO HS 02/16/19 05/09/21 tablet,extended release cholecalciferol (vitamin D3) 25 1,000 unit PO DAILY 02/16/19 05/09/21 mcg (1,000 unit) capsule (Vitamin D3) sennosides 8.6 mg tablet (senna) 17.2 mg PO HS 02/17/19 05/09/21 midodrine 5 mg tablet 5 mg PO TID PRN Blood Pressure 06/22/19 05/09/21 carbidopa 25 mg-levodopa 100 mg 1 tablet PO QID 09/26/20 05/09/21 tablet (Sinemet) ropinirole 2 mg tablet 1 mg PO BID 11/12/20 05/09/21 fludrocortisone 0.1 mg tablet 0.1 mg PO DAILY 12/18/20 05/09/21 omeprazole 20 mg capsule,delayed 40 mg PO BID 12/18/20 05/09/21 release acetaminophen 325 mg capsule 500 mg PO Q4H PRN Pain 02/07/21 05/09/21 (Tylenol) plecanatide 3 mg tablet (Trulance) 3 mg PO DAILY 05/09/21 05/09/21 Allergies Allergy/AdvReac Type Severity Reaction Status Date / Time hydrocodone AdvReac Severe psychosis Verified 08/13/22 16:22 Review of Systems Review of Systems: CONSTITUTIONAL: Denies fever, chills, or sweats. CARDIOVASCULAR: Denies chest pain, palpitations, or edema. RESPIRATORY: Denies cough or dyspnea. GASTROINTESTINAL: Denies abdominal pain, nausea, vomiting, or diarrhea. GENITOURINARY: Denies dysuria or hematuria. SKIN: Denies rash or itching. MUSCULOSKELETAL: Denies back pain, joint pain, or myalgia. NEUROLOGIC: Denies headache, numbness, dizziness, or weakness. PSYCHIATRIC: Denies anxiety or depression. [facility] Past Medical History Medical History Anemia Anxiety Arthritis Chronic kidney disease Baseline creatinine 0.9-1 Congenital malrotation of intestine Constipation Depression Diastolic dysfunction Echo 11/2020: LV systolic function lower limit of normal, diastolic dysfunction grade 1, EF 50%, mild enlargement of left ventricular cavity, moderate concentric left ventricular hypertrophy, impaired diastolic relaxation grade 1 with an EF visually estimated 50%, ijfe-[id number] aortic valve regurgitation, [id number] tricuspid regurgitation Duplicated urinary collecting system Gastroesophageal reflux disease (Unknown) Hypothyroidism Irritable bowel syndrome Kidney stones Orthostatic hypotension Osteoporosis Parkinson's disease Pulmonary hypertension RVSP of 35-40 Urinary, incontinence, stress female Surgical History Surgical History History of appendectomy History of bladder surgery Mid urethral sling. History of bunionectomy of both great toes History of cholecystectomy History of hysterectomy History of lithotripsy History of local excision of skin lesion History of rectal polypectomy History of sacrocolpopexy For symptomatic vaginal vault prolapse. Status post deep brain stimulator placement Family History Family History Mother Carcinoma of colon Father Family history of coronary artery disease Sibling Family history of malignant neoplasm of breast Sibling Acute myocardial infarction Other Breast cancer Social History Social History (Reviewed 09/21/22 @ 14:30 by Vicente Savage
[2022-10-24 12:58] LABS: Acetaminophen < 10 ug/mL (10-30); Ethanol < 10 mg/dL (<10); Salicylate < 1.0 mg/dL (2-20)
[2022-10-24 13:02] VITALS: BP 188/86; PULSE 71; RESP 20; O2SAT 97
[2022-10-24 14:02] LABS: Appearance Urine Clear (Clear); Bilirubin Urine Negative (Negative); Blood Urine Negative (Negative); Color Urine Yellow (Yellow); Glucose Urine UA Negative (Negative); Ketones Urine Negative (Negative); Leukocyte Esterase Ur Negative LEU/UL (Negative); Nitrate Urine Negative (Negative); Protein Urine Negative (Negative); Specific Grav Ur 1.005 (1.001-1.035)
[2022-10-24 14:15] LABS: Add Urine Microscopic? NO
[2022-10-24 14:18] LABS: Amphetamine Screen Urine Negative (Negative); Barbiturate Screen Urine Negative (Negative); Benzodiazepines Screen Urine Negative (Negative); Cannabinoid Screen Urine Negative (Negative); Cocaine Screen Urine Negative (Negative); Methadone Screen Urine Negative (Negative); Opiate Screen Urine Negative (Negative); Phencyclidine Screen Urine Negative (Negative)
[2022-10-24 14:24] VITALS: BP 175/91; PULSE 71; RESP 20; O2SAT 97
[2022-10-24 15:05] VITALS: BP 183/87; PULSE 76; RESP 20; O2SAT 98
== END 2022-10-24 15:05 | disposition home or self-care (01) ==
PROVIDERS: Emergency Provider Preventive Medicine Aerospace Medicine; PCP Family Medicine
DX: R41.0 Disorientation, unspecified (principal); G20 Parkinson's disease; N18.9 Chronic kidney disease, unspecified; I27.20 Pulmonary hypertension, unspecified; N39.3 Stress incontinence (female) (male); Q64.8 Other specified congenital malformations of urinary system; K21.9 Gastro-esophageal reflux disease without esophagitis; M19.90 Unspecified osteoarthritis, unspecified site; M81.0 Age-related osteoporosis without current pathological fracture; Z96.82 Presence of neurostimulator; Z86.2 Personal history of diseases of the blood and blood-forming organs and certain disorders involving the immune mechanism; Z87.442 Personal history of urinary calculi; Z90.49 Acquired absence of other specified parts of digestive tract; Z90.710 Acquired absence of both cervix and uterus; I45.9 Conduction disorder, unspecified; I49.3 Ventricular premature depolarization; Z79.899 Other long term (current) drug therapy
CPT/HCPCS: 36415; 70450; 71046; 80053; 80307; 81003; 84443; 85025; 85610; 85730; 93005; 99284

== ENCOUNTER 2022-12-31 10:50 | Emergency (ER) | payer MEDICARE, OTHER, SELFPAY ==
[2022-12-31] VITALS (13 sets, daily range): BP systolic 182–207; BP diastolic 101–120; PULSE 65–77; RESP 13–19; TEMP 36–36.4; O2SAT 91–100
--- NOTE | ~2022-12-31 | CT_ITS ---
EXAMINATION: CTA BRAIN/CAROTID DATE: 12/31/2022 11:33 INDICATION: TECHNIQUE: Computed tomographic angiography (CTA) of the head and neck was performed with 100 mL Omni paque-350 intravenous contrast. Multiplanar reconstructions and maximum intensity projection 3D-recon structions of the carotid arteries and of the intracranial arteries were created by the technologist on a separate workstation. Precontrast CT of the head was also obtained. Automated exposure control and iterative reconstruction technique were employed.The dose-length product was 993.36 mGy-cm. COMPARISON: None. FINDINGS: Carotid arteries: Aortic arch is normal in caliber. Small amount of atherosclerotic calcification without hemodynamical ly significant stenosis at the aortic arch and at the left subclavian artery. The dominant left verte bral artery is tortuous near its origin. There no evident atherosclerotic plaque with 0% stenosis of the right and left carotid bulbs relative to normal distal artery lumen diameter (NASCET criteria). I ncompletely visualized bilateral deep brain stimulators with leads coursing simultaneous tissues at t he posterior left and right neck and with stimulator tips in the region of the bilateral subthalamic nuclei. Visualized portions of the upper lungs are clear. There is enlargement of the central pulmona ry arteries which can be seen with pulmonary arterial hypertension. Visualized superior mediastinum a nd cervical soft tissues are otherwise unremarkable. Moderate cervical and upper thoracic spondylosis . Intracranial arteries Left vertebral artery is dominant. Small amount of nonhemodynamically significant calcified atheroscl erotic plaque at the supraclinoid portions of the bilateral carotid siphons. There is no hemodynamica lly significant stenosis in the vertebral, basilar and internal carotid arteries. There are no aneury sms identified. Both A1 and P1 segments are patent. There is also a tiny patent anterior communicati ng artery. Cerebral arterial arborization appears symmetric. No abnormally enhancing brain lesions id entified. IMPRESSION: 1. No evident atherosclerotic plaque with 0% stenosis of the right and left carotid bulbs relative to normal distal artery lumen diameter (NASCET criteria). 2. Normal cerebral CT angiogram. 3. Expected appearance of bilateral deep brain stimulators with lead tips in the region of the bilate ral subthalamic nuclei. Reviewed, dictated and finalized at location A. IMPRESSION: 1. No evident atherosclerotic plaque with 0% stenosis of the right and left car otid bulbs relative to normal distal artery lumen diameter (NASCET criteria). 2. Normal cerebral CT angiogram. 3. Expected appearance of bilateral deep brain stimulators with lead tips in th e region of the bilateral subthalamic nuclei.
--- NOTE | ~2022-12-31 | CT_ITS ---
EXAMINATION: CT brain wo con DATE: 12/31/2022 11:26 INDICATION: CVA. Transient alteration of awareness. TECHNIQUE: Computed tomography (CT) of the head was performed without intravenous contrast. The dose- length product was 605.33 mGy-cm. Automated exposure control and iterative reconstruction technique w ere employed. COMPARISON: CT dated 10/24/2022 FINDINGS: There are bilateral deep brain stimulator leads in the basal ganglia. No ventriculomegaly o r midline shift. Basilar cisterns are patent. No acute infarction, hemorrhage, mass or mass effect. T here are scattered mild periventricular and subcortical white matter changes, most likely related to small vessel ischemic disease (microangiopathy). There is intracranial atherosclerosis. Paranasal sin uses and mastoids are pneumatized. No depressed skull fractures. IMPRESSION: 1. No acute intracranial abnormality. As per stroke protocol, I called these results to emergency room, discussed with Dr. Dixon Kovacs MD at 12/31/2022 11:32 CDT. Reviewed, dictated and finalized at location A. IMPRESSION: 1. No acute intracranial abnormality. As per stroke protocol, I called these results to emergency room, discussed wit h Dr. Dixon Kovacs MD at 12/31/2022 11:32 CDT.
--- NOTE | ~2022-12-31 | XR_ITS ---
XR chest 1V portable DATE: 12/31/2022 11:50 INDICATION: Speech change. Right arm pain and weakness. Possible cerebrovascular accident TECHNIQUE: Portable AP chest on 12/31/2022 1146 hours COMPARISON: 10/24/2022 PA and lateral chest FINDINGS: Cardiomegaly. Aortic arch calcification, mild aortic unfolding. No hilar or mediastinal enl argement. No pulmonary infiltrate or consolidation, pleural effusion or pulmonary vascular congestion or pneumo thorax. There are prominent bilateral hypertrophic osteoarthritic changes at the glenohumeral joints Left-sided neurotransmitter device with leads extending bilaterally to the head. IMPRESSION: Cardiomegaly, aortic atherosclerosis No active pulmonary disease Left cerebral neurotransmitter device Reviewed, dictated and finalized at location L.
--- NOTE | 2022-12-31 11:14 | ECG_ITS ---
Measurements Intervals [place] Rate: 69 P: 53 AR: 140 QRS: -61 QRSD: 136 T: 24 QT: 395 QTc: 425 Interpretive Statements SINUS RHYTHM WITH OCCASIONAL ATRIAL AND VENTRICULAR PREMATURE COMPLEXES LEFT ANTERIOR SUPERIOR HEMIBLOCK INTRAVENTRICULAR CONDUCTION DELAY [130+ ms QRS DURATION] LEFT VENTRICULAR HYPERTROPHY AND ST-T CHANGE [VOLTAGE CRITERIA PLUS ST/T ABNORMALITY] COMPARED TO ECG 10/24/2022 13:10:40 NO SIGNIFICANT CHANGE Electronically Signed On 01-02-2023 8:42:57 CDT by Pravin Corley M.D.
--- NOTE | 2022-12-31 11:17 | ED.GENADULT ---
HPI - General Adult General Chief complaint: Extremity Injury, Upper Stated complaint: funny feeling in R arm Time Seen by Provider: 12/31/22 11:16 History of Present Illness HPI narrative: 77-year-old female history of Parkinson's presented to the ED for evaluation of right hand weakness. Patient states after she got to the car after her cardiology exam she started having some weakness of her right hand. Upon arrival emergency department patient has normal strength reflexes and had no discoordination and states that the symptoms did resolve. Patient denies any prior history of TIA or CVA. Patient does take medications for Parkinson's. Related Data Home Medications Medication Instructions Recorded Confirmed carbidopa ER 50 mg-levodopa 200 mg 1 tablet PO HS 02/16/19 05/09/21 tablet,extended release cholecalciferol (vitamin D3) 25 1,000 unit PO DAILY 02/16/19 05/09/21 mcg (1,000 unit) capsule (Vitamin D3) sennosides 8.6 mg tablet (senna) 17.2 mg PO HS 02/17/19 05/09/21 midodrine 5 mg tablet 5 mg PO TID PRN Blood Pressure 06/22/19 05/09/21 carbidopa 25 mg-levodopa 100 mg 1 tablet PO QID 09/26/20 05/09/21 tablet (Sinemet) ropinirole 2 mg tablet 1 mg PO BID 11/12/20 05/09/21 fludrocortisone 0.1 mg tablet 0.1 mg PO DAILY 12/18/20 05/09/21 omeprazole 20 mg capsule,delayed 40 mg PO BID 12/18/20 05/09/21 release acetaminophen 325 mg capsule 500 mg PO Q4H PRN Pain 02/07/21 05/09/21 (Tylenol) plecanatide 3 mg tablet (Trulance) 3 mg PO DAILY 05/09/21 05/09/21 Allergies Allergy/AdvReac Type Severity Reaction Status Date / Time hydrocodone AdvReac Severe psychosis Verified 08/13/22 16:22 Review of Systems Review of Systems: All systems reviewed & are unremarkable except as noted in HPI and below PMFSH Past Medical History Medical History Anemia Anxiety Arthritis Chronic kidney disease Baseline creatinine 0.9-1 Congenital malrotation of intestine Constipation Depression Diastolic dysfunction Echo 11/2020: LV systolic function lower limit of normal, diastolic dysfunction grade 1, EF 50%, mild enlargement of left ventricular cavity, moderate concentric left ventricular hypertrophy, impaired diastolic relaxation grade 1 with an EF visually estimated 50%, ovra-oe-oskkkhzr aortic valve regurgitation, ntom-lb-gudlstlp tricuspid regurgitation Duplicated urinary collecting system Gastroesophageal reflux disease (Unknown) Hypothyroidism Irritable bowel syndrome Kidney stones Orthostatic hypotension Osteoporosis Parkinson's disease Pulmonary hypertension RVSP of 35-40 Urinary, incontinence, stress female Surgical History Surgical History History of appendectomy History of bladder surgery Mid urethral sling. History of bunionectomy of both great toes History of cholecystectomy History of hysterectomy History of lithotripsy History of local excision of skin lesion History of rectal polypectomy History of sacrocolpopexy For symptomatic vaginal vault prolapse. Status post deep brain stimulator placement Family History Family History Mother Carcinoma of colon Father Family history of coronary artery disease Sibling Family history of malignant neoplasm of breast Sibling Acute myocardial infarction Other Breast cancer Social History Social History Social History: The patient is as of 2007 and lives in independent living at [place]. She has 3 daughters. Lifelong nonsmoker. No alcohol or illicit substance abuse. Her daughter Indigo Gallego is her healthcare power of commonwealth attorney. Code status: Full code. Alcohol intake: never Substance use: never Substance use type: does not use Living arrangements: [facility] Occupation/Education: retired Spi
[2022-12-31 11:26] LABS: Estimated CRCL calculation 40 ml/min; Estimated Glomerular Filt Rate 54
[2022-12-31 11:36] LABS: Basophils Percent Auto 0.6 % (0.2-1.2); Eosinophils Percent Auto 0.8 % (0-4.4); Hematocrit 41.8 % (37.0-47.0); Hemoglobin 13.8 g/dL (12.0-15.0); Immature Granulocyte Absolute 0.01 K/mm3 (0.00-0.031); Immature Granulocyte Percent A 0.2 % (0-0.5); Lymphocytes Absolute Auto 1.74 K/mm3 (0.9-3.2); Lymphocytes Percent Auto 34.2 % (18.3-44.2); Mean Corpuscular Hemoglobin 32.9 pg (26-34); Mean Corpuscular Volume 99.8 fl (80-100); Mean Platelet Volume 9.8 fl (7.4-10.4); Monocytes Absolute Auto 0.4 K/mm3 (0.1-0.6); Monocytes Percent Auto 7.7 % (2.6-8.5); Neutrophils Absolute Auto 2.9 K/mm3 (1.3-6.7); Neutrophils Percent Auto 56.5 % (45.5-73.1); Platelet Count Result 182 k/mm3 (150-375); Red Blood Count 4.19 M/mm3 (4.2-5.4); Red Cell Distribution Width 12.6 % (11.5-14.5); White Blood Count 5.1 K/mm3 (4.5-10.0)
[2022-12-31 11:46] LABS: Prothrombin Time 13.2 Seconds (11.1-14.7)
[2022-12-31 11:47] LABS: Partial Thromboplastin Time 28.1 SECONDS (22.3-36.8)
[2022-12-31 11:50] LABS: Alanine Aminotransferase 7 U/L (6-35); Albumin Level 4.5 g/dL (3.5-5.1); Alkaline Phosphatase 105 U/L (38-126); Anion Gap 3 mmol/L (8-16); Aspartate Amino Transferase 21 U/L (14-36); Bilirubin,Total 1.1 mg/dL (0.2-1.3); Blood Urea Nitrogen 18 mg/dL (7-17); Calcium 9.2 mg/dL (8.4-10.2); Carbon Dioxide 34 mmol/L (22-30); Chloride 101 mmol/L (98-107); Estimated CRCL calculation 44 ml/min; Estimated Glomerular Filt Rate > 60; Glucose 80 mg/dL (65-110); Potassium 3.6 mmol/L (3.4-5.0); Sodium 138 mmol/L (137-145)
[2022-12-31 12:00] LABS: Troponin I < 0.012 ng/mL (0.000-0.034)
[2022-12-31] MEDS: hydrALAZINE HCL 20 MG/ML VIAL 10 MG IV PUSH (12:41)
[2022-12-31 13:42] LABS: Glucose Point of Care 85 mg/dl (65-105)
== END 2022-12-31 13:03 | disposition home or self-care (01) ==
PROVIDERS: Emergency Provider Emergency Medicine; PCP Family Medicine
DX: G45.9 Transient cerebral ischemic attack, unspecified (principal); G20.A1 Parkinson's disease without dyskinesia, without mention of fluctuations; N18.9 Chronic kidney disease, unspecified; I27.20 Pulmonary hypertension, unspecified; N39.3 Stress incontinence (female) (male); Q64.8 Other specified congenital malformations of urinary system; Q43.3 Congenital malformations of intestinal fixation; E03.9 Hypothyroidism, unspecified; M19.90 Unspecified osteoarthritis, unspecified site; M81.0 Age-related osteoporosis without current pathological fracture; K58.9 Irritable bowel syndrome, unspecified; K21.9 Gastro-esophageal reflux disease without esophagitis; Z96.82 Presence of neurostimulator; Z87.442 Personal history of urinary calculi; Z90.49 Acquired absence of other specified parts of digestive tract; Z90.710 Acquired absence of both cervix and uterus; I51.7 Cardiomegaly; I70.0 Atherosclerosis of aorta
CPT/HCPCS: 70450; 70496; 70498; 71045; 80053; 82948; 84484; 85025; 85610; 85730; 93005; 96374; 99284; J0360; Q9967

== ENCOUNTER 2023-04-29 11:50 | Emergency (ER) | payer MEDICARE, OTHER, SELFPAY ==
[2023-04-29] VITALS (12 sets, daily range): BP systolic 151–201; BP diastolic 76–98; PULSE 62–76; RESP 12–20; TEMP 36.2; O2SAT 93–100
--- NOTE | ~2023-04-29 | CT_ITS ---
EXAMINATION: CT brain wo con DATE: 04/29/2023 12:23 INDICATION: Vision change. Right facial weakness. TECHNIQUE: Computed tomography (CT) of the head was performed without intravenous contrast. The mA wa s adjusted according to patient size. Iterative reconstruction technique was employed. The dose-lengt h product was 605.33 mGy-cm. COMPARISON: Head CT 12/31/2022 FINDINGS: There are bilateral deep brain stimulators. There is no intracranial hemorrhage, acute infa rction, or abnormal intracranial mass lesion. The ventricles are normal in size. The orbits are jc l. The paranasal sinuses are clear. The mastoid air cells are normal. IMPRESSION: 1. Normal brain. 2. Bilateral deep brain stimulators. Reviewed, dictated and finalized at location A. SHOP ATTENDANT
--- NOTE | ~2023-04-29 | XR_ITS ---
EXAMINATION: XR chest 1V portable DATE: 04/29/2023 12:27 INDICATION: Right-sided weakness. TECHNIQUE: A single frontal view of the chest was obtained. COMPARISON: Chest single view 12/31/2022, chest CT 04/30/2021 FINDINGS: A calcified right lung nodule is consistent with old granulomatous disease. No pleural effu zuly or pneumothorax. Cardiomegaly is noted. There is electronic device overlying left chest with migdalia ctrodes extending into the neck. Surgical clips in the right upper quadrant are likely from cholecyst ectomy. IMPRESSION: 1. Cardiomegaly. Reviewed, dictated and finalized at location A. RAISING SALE REPRESENTATIVE IMPRESSION: 1. Cardiomegaly.
--- NOTE | ~2023-04-29 | CT_ITS ---
EXAMINATION: CTA brain carotid DATE: 04/29/2023 15:52 INDICATION: Vision loss. TECHNIQUE: Computed tomographic angiography (CTA) of the head was performed with 100 mL Omnipaque-350 intravenous contrast. CTA of the neck was performed with intravenous contrast. Automated exposure co ntrol and iterative reconstruction technique were employed. The dose-length product was 969.59 mGy-cm . Maximum intensity projection and volume rendered 3D-reconstructions were created by the [employer] t on a separate workstation. COMPARISON: Head CT 04/29/2023 FINDINGS: HEAD CTA: There is no intracranial hemorrhage, acute infarction, or abnormal intracranial mass lesion . There are bilateral deep brain stimulators. The ventricles are normal in size. The paranasal sinuse s are clear. The orbits are normal. The mastoid air cells are normal. Left vertebral artery is domina nt. There is no significant stenosis of basilar artery or the posterior cerebral arteries. There is n o significant stenosis of the intracranial internal carotid arteries or anterior or middle cerebral a rteries. Anterior communicating artery is normal. Posterior communicating arteries are not identified . There is no aneurysm. NECK CTA: A calcified right lung nodule is consistent with old granulomatous disease. There are no pa thologically enlarged lymph nodes. There is no significant stenosis of the vertebral arteries. There is no visible plaque in the proximal internal carotid arteries. There is 0% stenosis of the proximal right internal carotid artery relative to normal distal artery lumen diameter (NASCET criteria). Ther e is 0% stenosis of the proximal left internal carotid artery relative to normal distal artery lumen diameter. There is severe cervical spondylosis. IMPRESSION: 1. Normal brain. 2. Bilateral deep brain stimulators. 3. No aneurysm or significant intracranial arterial stenosis. 4. 0% stenosis of the proximal internal carotid arteries relative to normal distal artery lumen diame ters (NASCET criteria). Reviewed, dictated and finalized at location A. ER MEDICAL DIRECTOR IMPRESSION: 1. Normal brain. 2. Bilateral deep brain stimulators. 3. No aneurysm or significant intracranial arterial stenosis. 4. 0% stenosis of the proximal internal carotid arteries relative to normal dis jose manuel artery lumen diameters (NASCET criteria).
[2023-04-29 12:02] LABS: Glucose Point of Care 93 mg/dl (65-105)
--- NOTE | 2023-04-29 12:05 | ECG_ITS ---
Measurements Intervals [place] Rate: 68 P: 59 IA: 128 QRS: -54 QRSD: 141 T: 39 QT: 371 QTc: 397 Interpretive Statements SINUS RHYTHM POSSIBLE LEFT ATRIAL ENLARGEMENT [-0.1mV P WAVE IN V1/V2] MARKED LEFT AXIS DEVIATION [QRS AXIS < -30] INTRAVENTRICULAR CONDUCTION DELAY [130+ ms QRS DURATION] LEFT VENTRICULAR HYPERTROPHY WITH SECONDARY ST T WAVE ABNORMALITY ABNORMAL ECG COMPARED TO ECG 12/31/2022 11:38:29 LEFT-AXIS DEVIATION NOW PRESENT Electronically Signed On 04-29-2023 14:01:33 MEDICAL LEADER by Burt Zambrano M.D.
[2023-04-29 12:24] LABS: Basophils Percent Auto 0.9 % (0.2-1.2); Eosinophils Percent Auto 0.5 % (0-4.4); Hematocrit 38.2 % (37.0-47.0); Hemoglobin 12.6 g/dL (12.0-15.0); Immature Granulocyte Absolute 0.01 K/mm3 (0.00-0.031); Immature Granulocyte Percent A 0.2 % (0-0.5); Lymphocytes Absolute Auto 1.34 K/mm3 (0.9-3.2); Lymphocytes Percent Auto 30.2 % (18.3-44.2); Mean Corpuscular Hemoglobin 32.8 pg (26-34); Mean Corpuscular Volume 99.5 fl (80-100); Mean Platelet Volume 9.6 fl (7.4-10.4); Monocytes Absolute Auto 0.3 K/mm3 (0.1-0.6); Monocytes Percent Auto 6.5 % (2.6-8.5); Neutrophils Absolute Auto 2.7 K/mm3 (1.3-6.7); Neutrophils Percent Auto 61.7 % (45.5-73.1); Platelet Count Result 169 k/mm3 (150-375); Red Blood Count 3.84 M/mm3 (4.2-5.4); White Blood Count 4.4 K/mm3 (4.5-10.0)
[2023-04-29 12:31] LABS: Albumin Level 4.5 g/dL (3.5-5.1); Alkaline Phosphatase 107 U/L (38-126); Anion Gap 5 mmol/L (8-16); Aspartate Amino Transferase 19 U/L (14-36); Bilirubin,Total 1.3 mg/dL (0.2-1.3); Blood Urea Nitrogen 21 mg/dL (7-17); Calcium 9.5 mg/dL (8.4-10.2); Carbon Dioxide 34 mmol/L (22-30); Chloride 100 mmol/L (98-107); Estimated CRCL calculation 36 ml/min; Estimated Glomerular Filt Rate 54; Glucose 96 mg/dL (65-110); Sodium 139 mmol/L (137-145)
[2023-04-29 12:35] LABS: Prothrombin Time 13.8 Seconds (11.1-14.7)
[2023-04-29 12:36] LABS: Partial Thromboplastin Time 28.1 SECONDS (22.3-36.8)
[2023-04-29 12:42] LABS: Troponin I < 0.012 ng/mL (0.000-0.034)
[2023-04-29 12:58] LABS: Alanine Aminotransferase < 6 U/L (6-35)
--- NOTE | 2023-04-29 14:12 | ED.GENADULT ---
HPI - General Adult General Chief complaint: Neuro Symptoms/Deficit Stated complaint: Partial vision loss Time Seen by Provider: 04/29/23 13:18 History of Present Illness HPI narrative: Patient is a 77-year-old female with past medical history of Parkinson's presents to the emergency department this afternoon complaining of vision changes. Patient states that she was sitting at her desk and was doing paperwork when she noticed a sudden onset change in her vision where everything became blurry and she could not see enough to be able to dial her sister's phone number. Patient states that the episode lasted a few seconds or minutes and subsided. She admits that her vision has been gradually declining for the past few months but despite that she has been able to perform her activities of daily living without any issues. Today, it was so bad that she could not see enough to call her sister. She denies completely losing vision, states that it just became blurry. Patient states that her vision currently is back to its baseline. Patient saw her operator prefinish approximately 1 year ago for an eye check and everything was normal. Patient does have a history of brain stimulators placed for her Parkinson's disease and follows up with neurologist regularly at [facility]. Patient last saw her neurologist 1 week ago since she had her stimulators adjusted 2 weeks ago and her neurologist said everything looks well but patient states that she has been feeling off ever since her stimulators were adjusted. Patient is currently denying any additional symptoms including chest pain, shortness of breath, focal weakness, numbness and O2. She states that her vision seems to be back to its baseline. The remainder of history of present illness and review of system is negative unless stated otherwise in HPI. Related Data Home Medications Medication Instructions Recorded Confirmed carbidopa ER 50 mg-levodopa 200 mg 1 tablet PO HS 02/16/19 05/09/21 tablet,extended release cholecalciferol (vitamin D3) 25 1,000 unit PO DAILY 02/16/19 05/09/21 mcg (1,000 unit) capsule (Vitamin D3) sennosides 8.6 mg tablet (senna) 17.2 mg PO HS 02/17/19 05/09/21 midodrine 5 mg tablet 5 mg PO TID PRN Blood Pressure 06/22/19 05/09/21 carbidopa 25 mg-levodopa 100 mg 1 tablet PO QID 09/26/20 05/09/21 tablet (Sinemet) ropinirole 2 mg tablet 1 mg PO BID 11/12/20 05/09/21 fludrocortisone 0.1 mg tablet 0.1 mg PO DAILY 12/18/20 05/09/21 omeprazole 20 mg capsule,delayed 40 mg PO BID 12/18/20 05/09/21 release acetaminophen 325 mg capsule 500 mg PO Q4H PRN Pain 02/07/21 05/09/21 (Tylenol) plecanatide 3 mg tablet (Trulance) 3 mg PO DAILY 05/09/21 05/09/21 Allergies Allergy/AdvReac Type Severity Reaction Status Date / Time hydrocodone AdvReac Severe psychosis Verified 08/13/22 16:22 Review of Systems Review of Systems: All systems are reviewed and are negative unless stated otherwise in the HPI. [facility] Past Medical History Medical History Anemia Anxiety Arthritis Chronic kidney disease Baseline creatinine 0.9-1 Congenital malrotation of intestine Constipation Depression Diastolic dysfunction Echo 11/2020: LV systolic function lower limit of normal, diastolic dysfunction grade 1, EF 50%, mild enlargement of left ventricular cavity, moderate concentric left ventricular hypertrophy, impaired diastolic relaxation grade 1 with an EF visually estimated 50%, bohl-yj-ecdxqzwn aortic valve regurgitation, myxl-zj-[id number] tricuspid regurgitation Duplicated urinary collecting system Gastroesophageal reflux disease (Unknown) Hypothyroidism Irritable bowel syndrome Kidney stones Orthostatic hypotension Osteoporosis Parkinson's disease Pulmonary hypertension RVSP of 35-40 Urinary, incontinence, stress female Surgical History Surgical History Histor
[2023-04-29] MEDS: POTASSIUM CHLORIDE 20 MEQ PACKET (FOR LIQUID) 40 MEQ PO (14:35)
[2023-04-29] MEDS: hydrALAZINE HCL 20 MG/ML VIAL 10 MG IV PUSH (16:21)
== END 2023-04-29 18:11 | disposition home or self-care (01) ==
PROVIDERS: Student in an Organized Health Care Education/Training Program; Emergency Provider Emergency Medicine; PCP Family Medicine
DX: H53.8 Other visual disturbances (principal); I12.9 Hypertensive chronic kidney disease with stage 1 through stage 4 chronic kidney disease, or unspecified chronic kidney disease; E87.6 Hypokalemia; G20.C Parkinsonism, unspecified; N18.9 Chronic kidney disease, unspecified; Q43.3 Congenital malformations of intestinal fixation; Q64.8 Other specified congenital malformations of urinary system; K58.9 Irritable bowel syndrome, unspecified; I27.20 Pulmonary hypertension, unspecified; N39.3 Stress incontinence (female) (male); M81.0 Age-related osteoporosis without current pathological fracture; M19.90 Unspecified osteoarthritis, unspecified site; Z96.82 Presence of neurostimulator; Z86.2 Personal history of diseases of the blood and blood-forming organs and certain disorders involving the immune mechanism; Z87.19 Personal history of other diseases of the digestive system; Z87.442 Personal history of urinary calculi; Z90.49 Acquired absence of other specified parts of digestive tract; Z90.710 Acquired absence of both cervix and uterus; R94.31 Abnormal electrocardiogram [ECG] [EKG]; I45.9 Conduction disorder, unspecified; I51.7 Cardiomegaly
CPT/HCPCS: 36415; 70450; 70496; 70498; 71045; 80053; 82948; 84484; 85025; 85610; 85730; 93005; 96374; 99284; A9270; J0360; Q9967

== ENCOUNTER 2023-06-19 17:25 | Emergency (ER) | payer MEDICARE, OTHER, SELFPAY ==
--- NOTE | ~2023-06-19 | XR_ITS ---
EXAM: XR lumbar spine 2-3V DATE: 06/19/2023 18:31 HISTORY: fall one week ago. low back pain . COMPARISON: None available. FINDINGS: Moderate scoliosis. Osteopenia. Cholecystectomy clips. 5 nonrib-bearing lumbar-type vertebr al bodies. Pedicles intact. 3 mm anterolisthesis at L4-5. Exaggerated lumbar lordosis. Vertebral body heights preserved. Multilevel lumbar degenerative disc disease, severe at L4-5 and L5-S1. Multilevel moderate-severe mid and lower lumbar facet hypertrophy and sclerosis, with interspinous narrowing No fracture or dislocation. IMPRESSION: Grade 1 anterolisthesis at L4-5. Severe degenerative disc disease at L4-5 and L5-S1. Mode rate-severe mid and lower lumbar facet arthropathy. Reviewed, dictated and finalized at location K. IMPRESSION: Grade 1 anterolisthesis at L4-5. Severe degenerative disc disease a t L4-5 and L5-S1. Moderate-severe mid and lower lumbar facet arthropathy.
--- NOTE | 2023-06-19 17:47 | ED.GENADULT ---
HPI - General Adult General Chief complaint: Back Pain/Injury Stated complaint: SOB/CONFUSTION/FALL/TAILBONE/ELBOW PAIN Source: patient Mode of arrival: ambulatory Limitations: no limitations History of Present Illness HPI narrative: 78-year-old female patient presents to the [facility] accompanied by her sister with complaints of tailbone pain. Patient states about over a week ago when she was in [place] for a family member's wedding she fell in the shower. Patient states she has been taking 500 mg of Tylenol for pain but states that the pain has not gotten any better. Patient states she also hit her right elbow and has some pain to at this site as well. Denies hitting her head or loss of consciousness. Patient does have history of hypotension and Parkinson's disease. Patient does have an implanted brain stimulator. Patient states that she has had 1 episode of some shortness of breath today that has since resolved. Patient states she has had these episodes here in there for several weeks but denies any chest pain or shortness of breath Currently. Patient denies any lightheadedness, dizziness. Related Data Home Medications Medication Instructions Recorded Confirmed carbidopa ER 50 mg-levodopa 200 mg 1 tablet PO HS 02/16/19 06/19/23 tablet,extended release cholecalciferol (vitamin D3) 25 1,000 unit PO DAILY 02/16/19 06/19/23 mcg (1,000 unit) capsule (Vitamin D3) midodrine 5 mg tablet 5 mg PO TID PRN Blood Pressure 06/22/19 06/19/23 carbidopa 25 mg-levodopa 100 mg 1 tablet PO QID 09/26/20 06/19/23 tablet (Sinemet) fludrocortisone 0.1 mg tablet 0.1 mg PO DAILY 12/18/20 06/19/23 omeprazole 20 mg capsule,delayed 40 mg PO BID 12/18/20 06/19/23 release acetaminophen 325 mg capsule 500 mg PO Q4H PRN Pain 02/07/21 06/19/23 (Tylenol) Allergies Allergy/AdvReac Type Severity Reaction Status Date / Time hydrocodone AdvReac Severe psychosis Verified 06/19/23 17:49 Review of Systems Review of Systems: CONSTITUTIONAL: Denies fever, chills, or sweats. EYES: Denies visual changes, redness, or discharge. ENT: Denies rhinorrhea, congestion, sore throat, or otalgia. CARDIOVASCULAR: Denies chest pain, palpitations, or edema. RESPIRATORY: Denies cough , positive dyspnea that has since resolved. GASTROINTESTINAL: Denies abdominal pain, nausea, vomiting, or diarrhea. GENITOURINARY: Denies dysuria or hematuria. SKIN: Denies rash or itching. MUSCULOSKELETAL: Denies back pain, joint pain, or myalgia. Positive tailbone pain, positive right elbow pain NEUROLOGIC: Denies headache, numbness, or weakness. PSYCHIATRIC: Denies anxiety or depression. [facility] Past Medical History Medical History Anemia Anxiety Arthritis Chronic kidney disease Baseline creatinine 0.9-1 Congenital malrotation of intestine Constipation Depression Diastolic dysfunction Echo 11/2020: LV systolic function lower limit of normal, diastolic dysfunction grade 1, EF 50%, mild enlargement of left ventricular cavity, moderate concentric left ventricular hypertrophy, impaired diastolic relaxation grade 1 with an EF visually estimated 50%, [id number] aortic valve regurgitation, [id number] tricuspid regurgitation Duplicated urinary collecting system Gastroesophageal reflux disease (Unknown) Hypothyroidism Irritable bowel syndrome Kidney stones Orthostatic hypotension Osteoporosis Parkinson's disease Pulmonary hypertension RVSP of 35-40 Urinary, incontinence, stress female Surgical History Surgical History History of appendectomy History of bladder surgery Mid urethral sling. History of bunionectomy of both great toes History of cholecystectomy History of hysterectomy History of lithotripsy History of local excision of skin lesion History of rectal polypectomy History of sacrocolpopexy For symptomatic vaginal vault prolaps
[2023-06-19 17:59] VITALS: BP 80/67; PULSE 64; RESP 16; TEMP 36.9; O2SAT 98
--- NOTE | 2023-06-19 18:20 | ECG_ITS ---
SEE SCANNED COPY FOR CONFIRMED REPORT MTDD
[2023-06-19 19:05] VITALS: BP 154/77
--- NOTE | 2023-06-19 19:13 | PC.NURSE ---
184 xray has been completed and EKG done as ordered. No tremors noted at this time.
== END 2023-06-19 19:05 | disposition home or self-care (01) ==
PROVIDERS: Emergency Provider Nurse Practitioner Family; PCP Family Medicine
DX: M53.3 Sacrococcygeal disorders, not elsewhere classified (principal); S50.01XA Contusion of right elbow, initial encounter; W18.2XXA Fall in (into) shower or empty bathtub, initial encounter; M19.90 Unspecified osteoarthritis, unspecified site; E03.9 Hypothyroidism, unspecified; M81.0 Age-related osteoporosis without current pathological fracture; G20.A1 Parkinson's disease without dyskinesia, without mention of fluctuations; I27.20 Pulmonary hypertension, unspecified; N18.9 Chronic kidney disease, unspecified
CPT/HCPCS: 72100; 93005; 99213; G0463

== ENCOUNTER 2023-09-03 13:36 | Emergency (ER) | payer MEDICARE, OTHER, SELFPAY ==
[2023-09-03] VITALS (8 sets, daily range): BP systolic 127–204; BP diastolic 61–93; PULSE 55–65; RESP 13–18; TEMP 36.6; O2SAT 95–100
--- NOTE | 2023-09-03 14:02 | PC.NURSE ---
Pt reported wanting to try to urinate. This RN wheeled patient to bathroom, put hat in toilet and educated patient on how to collect clean catch sample. Pt exited bathroom stating it didn't work . Pt guessed urine sample went behind hat into the toilet. Pt stated that also happened at this morning. Pt educated again on sample collection and to let us know when she can give another sample.
--- NOTE | 2023-09-03 14:02 | ED.GENADULT ---
HPI - General Adult General Chief complaint: Recheck/Abnormal Lab/Rx Stated complaint: low bp Time Seen by Provider: 09/03/23 13:50 Source: patient Mode of arrival: ambulatory Limitations: no limitations History of Present Illness HPI narrative: This is a 78-year-old female who presents to the ED with chief complaint of low blood pressure found urgent care today. Patient states that she has chronic low blood pressure for which she takes midodrine but today at urgent care was in the 70s over 50s. She states this is a little lower than normal for her. She went to urgent care today because she thought she may have UTI. Reports darker colored urine and some lower back discomfort. Denies fevers, chills, abdominal pain, nausea, vomiting, GI bleeding symptoms. Related Data Home Medications Medication Instructions Recorded Confirmed carbidopa ER 50 mg-levodopa 200 mg 1 tablet PO HS 02/16/19 06/19/23 tablet,extended release cholecalciferol (vitamin D3) 25 1,000 unit PO DAILY 02/16/19 06/19/23 mcg (1,000 unit) capsule (Vitamin D3) midodrine 5 mg tablet 5 mg PO TID PRN Blood Pressure 06/22/19 06/19/23 carbidopa 25 mg-levodopa 100 mg 1 tablet PO QID 09/26/20 06/19/23 tablet (Sinemet) fludrocortisone 0.1 mg tablet 0.1 mg PO DAILY 12/18/20 06/19/23 omeprazole 20 mg capsule,delayed 40 mg PO BID 12/18/20 06/19/23 release acetaminophen 325 mg capsule 500 mg PO Q4H PRN Pain 02/07/21 06/19/23 (Tylenol) Allergies Allergy/AdvReac Type Severity Reaction Status Date / Time hydrocodone AdvReac Severe psychosis Verified 06/19/23 17:49 Review of Systems Review of Systems: All systems as dictated in [facility] Past Medical History Medical History Anemia Anxiety Arthritis Chronic kidney disease Baseline creatinine 0.9-1 Congenital malrotation of intestine Constipation Depression Diastolic dysfunction Echo 11/2020: LV systolic function lower limit of normal, diastolic dysfunction grade 1, EF 50%, mild enlargement of left ventricular cavity, moderate concentric left ventricular hypertrophy, impaired diastolic relaxation grade 1 with an EF visually estimated 50%, [id number] aortic valve regurgitation, [id number] tricuspid regurgitation Duplicated urinary collecting system Gastroesophageal reflux disease (Unknown) Hypothyroidism Irritable bowel syndrome Kidney stones Orthostatic hypotension Osteoporosis Parkinson's disease Pulmonary hypertension RVSP of 35-40 Urinary, incontinence, stress female Surgical History Surgical History History of appendectomy History of bladder surgery Mid urethral sling. History of bunionectomy of both great toes History of cholecystectomy History of hysterectomy History of lithotripsy History of local excision of skin lesion History of rectal polypectomy History of sacrocolpopexy For symptomatic vaginal vault prolapse. Status post deep brain stimulator placement Family History Family History Mother Carcinoma of colon Father Family history of coronary artery disease Sibling Family history of malignant neoplasm of breast Sibling Acute myocardial infarction Other Breast cancer Social History Social History Social History: The patient is as of 2007 and lives in independent living at [place]. She has 3 daughters. Lifelong nonsmoker. No alcohol or illicit substance abuse. Her daughter Indigo Gallego is her healthcare power of [place] attorney. Code status: Full code. Alcohol intake: never Substance use: never Substance use type: does not use Living arrangements: [facility] Occupation/Education: retired Spiritual care concerns: No Course Course Emergency Course: GENERAL: Well-appearing, well-nour
[2023-09-03 15:23] LABS: Basophils Percent Auto 0.7 % (0.2-1.2); Hematocrit 36.2 % (37.0-47.0); Hemoglobin 12.2 g/dL (12.0-15.0); Immature Granulocyte Absolute 0.01 K/mm3 (0.00-0.031); Immature Granulocyte Percent A 0.2 % (0-0.5); Lymphocytes Absolute Auto 1.37 K/mm3 (0.9-3.2); Lymphocytes Percent Auto 33.5 % (18.3-44.2); Mean Corpuscular HGB Conc 33.7 g/dl (32-36); Mean Corpuscular Hemoglobin 33.3 pg (26-34); Mean Corpuscular Volume 98.9 fl (80-100); Mean Platelet Volume 9.7 fl (7.4-10.4); Monocytes Absolute Auto 0.3 K/mm3 (0.1-0.6); Monocytes Percent Auto 6.8 % (2.6-8.5); Neutrophils Absolute Auto 2.4 K/mm3 (1.3-6.7); Neutrophils Percent Auto 57.8 % (45.5-73.1); Platelet Count Result 162 k/mm3 (150-375); Red Blood Count 3.66 M/mm3 (4.2-5.4); Red Cell Distribution Width 12.6 % (11.5-14.5); White Blood Count 4.1 K/mm3 (4.5-10.0)
[2023-09-03 15:30] LABS: Appearance Urine Clear (Clear); Bacteria Urine None Seen /hpf; Bilirubin Urine Negative (Negative); Blood Urine Negative (Negative); Color Urine Yellow (Yellow); Glucose Urine UA Negative (Negative); Ketones Urine Negative (Negative); Leukocyte Esterase Ur Trace LEU/UL (Negative); Nitrate Urine Negative (Negative); Protein Urine Negative (Negative); RBC Urine 0-2 /hpf (0-2); Specific Grav Ur 1.009 (1.001-1.035); Squamous Epithelial Cell Urine None Seen /hpf (Few); WBC Urine 0-5 /hpf (0-3); pH Urine 6.5 (5.0-9.0)
[2023-09-03 15:34] LABS: Albumin Level 4.3 g/dL (3.5-5.1); Alkaline Phosphatase 92 U/L (38-126); Anion Gap 3 mmol/L (4-12); Aspartate Amino Transferase 14 U/L (14-36); Blood Urea Nitrogen 20 mg/dL (7-17); Calcium 9.1 mg/dL (8.4-10.2); Carbon Dioxide 32 mmol/L (22-30); Chloride 105 mmol/L (98-107); Estimated CRCL calculation 32 ml/min; Estimated Glomerular Filt Rate 48; Glucose 89 mg/dL (65-110); Sodium 140 mmol/L (137-145)
[2023-09-03 15:44] LABS: Alanine Aminotransferase < 6 U/L (6-35)
[2023-09-03 15:55] LABS: Add Urine Microscopic? YES
--- NOTE | 2023-09-03 16:57 | PC.NURSE ---
Manual bp reading still high. EDP made aware.
[2023-09-03] MEDS: ACETAMINOPHEN 500 MG TABLET 1000 MG PO (17:34)
[2023-09-03] MEDS: hydrALAZINE 5 MG TABLET PO (17:52)
== END 2023-09-03 18:45 | disposition home or self-care (01) ==
PROVIDERS: Emergency Provider Physician Assistant; PCP Family Medicine
DX: I12.9 Hypertensive chronic kidney disease with stage 1 through stage 4 chronic kidney disease, or unspecified chronic kidney disease (principal); G20.A1 Parkinson's disease without dyskinesia, without mention of fluctuations; N18.9 Chronic kidney disease, unspecified; I51.89 Other ill-defined heart diseases; I27.20 Pulmonary hypertension, unspecified; E03.9 Hypothyroidism, unspecified; D64.9 Anemia, unspecified; N39.3 Stress incontinence (female) (male); K58.9 Irritable bowel syndrome, unspecified; M81.0 Age-related osteoporosis without current pathological fracture; M19.90 Unspecified osteoarthritis, unspecified site; Q64.8 Other specified congenital malformations of urinary system; Z96.82 Presence of neurostimulator; Z87.442 Personal history of urinary calculi; Z90.49 Acquired absence of other specified parts of digestive tract; Z90.710 Acquired absence of both cervix and uterus; Z87.19 Personal history of other diseases of the digestive system
CPT/HCPCS: 36415; 80053; 81001; 85025; 99283; A9270

== ENCOUNTER 2023-10-08 13:53 | Outpatient (CLI) | payer MEDICARE, OTHER, SELFPAY ==
--- NOTE | ~2023-10-08 | XR_ITS ---
XR foot LT min 3V Ordering provider: Piyush Barros, [employer] History: . History of falling yesterday, pain across top of 4th 5th . Comparison: None. FINDINGS: BONES: Healed fracture in the distal metaphysis of the first metatarsal bone.. Calcaneal spur. JOINT SPACES: Narrowing of the proximal and distal interphalangeal joints. No tarsal coalition. SOFT TISSUES: Normal. IMPRESSION: No acute osseous abnormality left foot. Reviewed, dictated and finalized at location A.
--- NOTE | ~2023-10-08 | XR_ITS ---
XR shoulder LT min 2V Ordering provider: Piyush Barros, TOWER CLEANER History: . History of falling yesterday, LATERAL SHOULDER PAIN . Comparison: April 21, 2018 FINDINGS: BONES: No acute fracture or dislocation. JOINT SPACES: The acromioclavicular joint is normal. The glenohumeral joint shows severe osteoarthrit ic changes. SOFT TISSUES: Normal. Left spinal stimulator is noted IMPRESSION: No acute osseous abnormality left shoulder. Reviewed, dictated and finalized at location A.
== END 2023-10-08 13:54 | disposition home or self-care (01) ==
LOC: ANHIMG 14:02
PROVIDERS: PCP Family Medicine; Visit Provider Registered Nurse
DX: M25.512 Pain in left shoulder (principal); M79.672 Pain in left foot; Z91.81 History of falling
CPT/HCPCS: 73030; 73630

== ENCOUNTER 2024-02-11 13:49 | Emergency (ER) | payer MEDICARE, OTHER, SELFPAY ==
--- NOTE | ~2024-02-11 | XR_ITS ---
XR shoulder LT min 2V DATE: 02/11/2024 14:34 INDICATION: Left shoulder pain following fall TECHNIQUE: 4 views COMPARISON: None FINDINGS: There is osteopenia. There is severe joint space narrowing and very prominent humeral head spurring at the glenohumeral keri int consistent with severe osteoarthritis. No fracture, dislocation, periosteal reaction or bone destruction is detected. Posterior lateral left eighth and posterior left ninth apparently recent left rib fractures. IMPRESSION: Apparently recent left eighth and ninth rib fractures Osteopenia Severe left glenohumeral osteoarthritis Osteopenia Reviewed, dictated and finalized at location A. LAB NURSE
[2024-02-11 14:09] VITALS: PULSE 83; RESP 16; TEMP 36.2; O2SAT 100
--- NOTE | 2024-02-11 14:14 | ED_ITS ---
HPI - Extremity Injury (Upper) General Chief Complaint: Extremity Injury, Upper Stated Complaint: Left Shoulder Pain Time Seen by Provider: 02/11/24 14:14 Source: patient Mode of arrival: ambulatory Limitations: no limitations History of Present Illness HPI narrative: 78-year-old female with history of Parkinson's presents with complaint of left shoulder pain. Five does go patient missed a step and fell onto left shoulder. Patient gets physical therapy twice a week. Physical therapist came today and patient complaint of left shoulder pain when lifting left arm. Physical therapy recommend that patient have x-ray to rule out fracture. All systems reviewed and negative except as noted above. Related Data Home Medications Medication Instructions Recorded Confirmed carbidopa 25 mg-levodopa 100 mg tablet 02/11/24 tablet carbidopa ER 50 mg-levodopa 200 mg tablet PO 02/11/24 tablet,extended release cyanocobalamin (vitamin B-12) mcg 02/11/24 1,000 mcg/mL injection solution donepezil 5 mg tablet mg 02/11/24 fludrocortisone 0.1 mg tablet mg 02/11/24 folic acid 1 mg tablet 02/11/24 gabapentin 100 mg capsule mg 02/11/24 levothyroxine 100 mcg tablet mcg 02/11/24 midodrine 5 mg tablet mg 02/11/24 mirabegron 25 mg tablet,extended mg PO 02/11/24 release 24 hr (Myrbetriq) omeprazole 40 mg capsule,delayed mg 02/11/24 release potassium chloride 10 mEq meq PO 02/11/24 tablet,extended release Allergies Allergy/AdvReac Type Severity Reaction Status Date / Time hydrocodone AdvReac Severe psychosis Verified 02/11/24 14:24 Review of Systems Review of Systems: CONSTITUTIONAL: Denies fever, chills, or sweats. EYES: Denies visual changes, redness, or discharge. ENT: Denies rhinorrhea, congestion, sore throat, or otalgia. CARDIOVASCULAR: Denies chest pain, palpitations, or edema. RESPIRATORY: Denies cough or dyspnea. GASTROINTESTINAL: Denies abdominal pain, nausea, vomiting, or diarrhea. GENITOURINARY: Denies dysuria or hematuria. SKIN: Denies rash or itching. MUSCULOSKELETAL: Denies back pain or myalgia. Reports pain to left shoulder. NEUROLOGIC: Denies headache, numbness, or weakness. PSYCHIATRIC: Denies anxiety or depression. All other systems reviewed are negative, except as documented in HPI. [facility] Past Medical History Medical History Anemia Anxiety Arthritis Chronic kidney disease Baseline creatinine 0.9-1 Congenital malrotation of intestine Constipation Depression Diastolic dysfunction Echo 11/2020: LV systolic function lower limit of normal, diastolic dysfunction grade 1, EF 50%, mild enlargement of left ventricular cavity, moderate concentric left ventricular hypertrophy, impaired diastolic relaxation grade 1 with an EF visually estimated 50%, [id number] aortic valve regurgitation, [id number] tricuspid regurgitation Duplicated urinary collecting system Gastroesophageal reflux disease (Unknown) Hypothyroidism Irritable bowel syndrome Kidney stones Orthostatic hypotension Osteoporosis Parkinson's disease Pulmonary hypertension RVSP of 35-40 Urinary, incontinence, stress female Surgical History Surgical History History of appendectomy History of bladder surgery Mid urethral sling. History of bunionectomy of both great toes History of cholecystectomy History of hysterectomy History of lithotripsy History of local excision of skin lesion History of rectal polypectomy History of sacrocolpopexy For symptomatic vaginal vault prolapse. Status post deep brain stimulator placement Family History Family History Mother Carcinoma of colon Father Family history of coronary artery disease Sibling Family history of malignant neoplasm of breast Sibling Acute myocardial infarction Other Breast cancer Social History Social History Social History: The patient is as of 2007 and lives in independent living at [place]. She has 3 daughters. Lifelong nonsmoker. No alcohol or illicit substance abuse. Her daughter Indigo Gallego is her healthcare power of divorce attorney. Code status: Full code. Alcohol intake: never Substance use: never Substance use type: does not use Living arrangements: [facility] Occupation/Education: retired Spiritual care concerns: No Comments At time of signature, agree with nursing past medical, surgical, social and family history. There is no relevant family history pertinent to the presenting complaint. Exam Narrative: GENERAL: This is a well-nourished, well-developed patient, in no apparent distress. HEAD: normocephalic, atraumatic. EYES: PERRL. Sclera clear/white. Vision is grossly intact. EARS: External ears normal NOSE: External nose normal NECK: Neck supple, non-tender without lymphadenopathy, masses or thyromegaly. CARDIOVASCULAR: Regular rate and rhythm without murmurs, gallops, or rubs. RESPIRATORY: Clear to auscultation. Breath sounds equal bilaterally. No wheezes, rales, or rhonchi. SKIN: warm, Dry, intact with no suspicious lesions or rash, good texture and turgor. NEURO: awake, alert, and oriented to person, place and time. There were no obvious focal neurologic abnormalities. EXTREMITIES: Tenderness to left AC joint and proximal humerus. Passive range of motion painful excessively when lifting left arm overhead. Negative left arm drop test. Neurovascularly intact. Course Course Level of Care: Express Care Visit Vital Signs Vital signs: Vital Signs Temperature 36.2 C L 02/11/24 14:09 Pulse Rate 83 02/11/24 14:09 Respiratory Rate 16 02/11/24 14:09 Pulse Oximetry 100 02/11/24 14:09 Temperature 36.2 C L 02/11/24 14:09 Pulse Rate 83 02/11/24 14:09 Respiratory Rate 16 02/11/24 14:09 Blood Pressure 102/62 02/11/24 15:00 Pulse Oximetry 100 02/11/24 14:09 Reviewed MDM - Extremity Injury (Upper) MDM Narrative Medical decision making narrative: X-ray of left shoulder negative for fracture. Discussed results with patient. Recommend Tylenol, ice to treat pain. Elevate when at rest. Follow-up with primary care physician as needed. Patient's blood pressure was initially low in triage. Asymptomatic. Patient has a history of low blood pressure. Takes Midodrine. was due to medication. Took it while at express care and BP improved. Patient is aware of diagnosis, understands and agrees to treatment plan. Anticipatory guidance given. Patient agrees to follow-up as directed and is aware of reasons to seek care at the emergency department. Portions of this record may have been created with voice recognition software Discharge Plan Discharge Clinical Impression: Contusion of left shoulder Qualifiers: Encounter type: initial encounter Qualified Code(s): S40.012A - Contusion of left shoulder, initial encounter Patient Disposition: Home, Self-Care Condition: Stable Instructions: Shoulder Pain (ED) Additional Instructions: The x-ray of your left shoulder was negative for fracture. Continue taking Tylenol every 6-8 hours as needed for pain. Apply ice as needed for pain. Continue with your normal physical therapy. If pain not improving in the next 2-3 weeks follow-up with your primary care physician for further evaluation. Prescriptions: No Action donepezil 5 mg tablet carbidopa-levodopa 50-200 mg tablet extended release PO midodrine 5 mg tablet potassium chloride 10 mEq tablet extended release PO omeprazole 40 mg capsule,delayed release(DR/EC) levothyroxine 100 mcg tablet cyanocobalamin (vitamin B-12) 1,000 mcg/mL solution folic acid 1 mg tablet gabapentin 100 mg capsule carbidopa-levodopa 25-100 mg tablet fludrocortisone 0.1 mg tablet mirabegron [Myrbetriq] 25 mg tablet extended release 24 hr PO Follow-up/Referrals: Michael Ford MD [Primary Care Provider] - Time of Disposition: 15:05
[2024-02-11 14:20] VITALS: BP 70/40
[2024-02-11 14:22] VITALS: BP 92/52
[2024-02-11 15:00] VITALS: BP 102/62
== END 2024-02-11 15:15 | disposition home or self-care (01) ==
PROVIDERS: Emergency Provider Nurse Practitioner Family; PCP Family Medicine
DX: S40.012A Contusion of left shoulder, initial encounter (principal); W10.9XXA Fall (on) (from) unspecified stairs and steps, initial encounter; Y92.26 Movie house or cinema as the place of occurrence of the external cause; D64.9 Anemia, unspecified; N18.9 Chronic kidney disease, unspecified; E03.9 Hypothyroidism, unspecified; M81.0 Age-related osteoporosis without current pathological fracture; G20.A1 Parkinson's disease without dyskinesia, without mention of fluctuations; I27.20 Pulmonary hypertension, unspecified; Z96.82 Presence of neurostimulator
CPT/HCPCS: 73030; 99213; G0463

== ENCOUNTER 2024-04-05 16:05 | Outpatient (CLI) | payer MEDICARE, OTHER, SELFPAY ==
--- NOTE | ~2024-04-05 | XR_ITS ---
EXAMINATION: XR humerus LT DATE: 04/05/2024 16:34 INDICATION: Left arm pain TECHNIQUE: AP and lateral views of the left humerus were obtained. COMPARISON: Left shoulder radiographs dated 02/11/2024 FINDINGS: Bone alignment is normal. No fracture. Severe osteoarthritis at the left glenohumeral joint. Mild ost eoarthritis at the left elbow joint. Acromioclavicular joint space is normal. Visualized portion of t he left lung are clear. Electronic device projecting over the lateral left chest wall with paraplegia 1 extending towards the left neck. IMPRESSION: 1. Severe left glenohumeral osteoarthritis. No acute osseous abnormality. Reviewed, dictated and finalized at location A. H MENDER
--- OUTSIDE RECORDS SUMMARY | 2024-04-07 03:15 | XMS_ITS | Clinical Summary ---
Author Organization [facility] Address [address] [place] [address] Care Team Providers Care Executive Consultant Name Role Phone Michael Ford MD Primary Care Provider [phone] Source Comments [facility],non-owned Affiliates and Associated Physician Practices is amultiple site organization consisting of ambulatory clinics and hospital sitesin [place], [place], [place] and [place]. This disclosure is being madepursuant to the Care Everywhere program and may not contain all information available regarding this patient. Last updated 17.[facility] Allergies Active Allergy Reactions Criticality Noted Date Comments Hydrocodone Other 07/25/2021 Hallucinations Medications * Be aware that medications may not be up to date on this document. Alwaysverify current medications with the patient. Medication Sig Dispensed Refills Start Date End Date Status levothyroxine (SYNTHROID) 100 MCG tablet Take 1 (one) tablet by mouth daily before breakfast Active cyanocobalamin (VITAMIN B-12) injection 100 (one hundred) mcg every 30 days 02/05/2020 Active vitamin D3 (CHOLECALCIFEROL) 25 MCG (1000 UNITS) tablet Take 1 (one) tablet by mouth once daily Active ibuprofen (MOTRIN) 600 MG tablet Take 1 (one) tablet by mouth every 6 hours as needed for Pain 60 tablet 05/18/2021 Active omeprazole (PRILOSEC) 40 MG capsule TAKE 1 CAPSULE TWICE A DAY BEFORE BREAKFAST AND SUPPER 180 capsule 3 06/24/2021 Active folic acid (FOLVITE) 1 MG tabletIndications:R BD (REM behavioral disorder),Parkinson disease (HCC),Parkinson's disease (HCC) TAKE 1 TABLET DAILY 90 tablet 3 07/07/2021 Active B-D 3CC LUER-JESSCIA SYR 25GX1 25G X 1 3 ML MISC USE DIRECTED MONTHLY 12/10/2021 Active polyethylene glycol 3350 (Miralax) 17 GM/SCOOP powder Take 17 (seventeen) g by mouth once daily 238 g 10/15/2022 Active acyclovir (Zovirax) 5 % ointment APPLY CREAM TO NOSE 5 TIMES A DAY FOR 4 DAYS 04/09/2023 Active donepezil (Aricept) 5 MG tablet Take 1 (one) tablet by mouth at bedtime 02/26/2023 Active potassium chloride ER 10 MEQ tablet Take 1 (one) tablet by mouth 2 times daily 04/16/2023 Active fludrocortisone (Florinef) 0.1 MG tabletIndications:O rthostatic Hypotension Take 2 (two) tablets by mouth once daily Reasons: Blood Pressure Drop Upon Standing 180 tablet 3 09/27/2023 Active carbidopa-levodopa (Sinemet) 25-100 MG tabletIndications:P arkinson's disease with dyskinesia and fluctuating manifestations (HCC) Take 1 (one) tablet by mouth 3 times daily At 7:30 AM and 12:30 PM and 5:30 PM 270 tablet 3 11/08/2023 Active carbidopa-levodopa CR (Sinemet CR) 50-200 MG tabletIndications:P arkinson's disease with dyskinesia and fluctuating manifestations (HCC) Take 1 (one) tablet by mouth at bedtime 90 tablet 3 11/08/2023 Active midodrine (Proamatine) 5 MG tabletIndications:P arkinson's disease with dyskinesia and fluctuating manifestations (HCC) Take 1 (one) tablet by mouth 3 times daily 270 tablet 3 11/08/2023 Active gabapentin (Neurontin) 100 MG capsuleIndications: Neuropathy TAKE 1 CAPSULE BY MOUTH AT BEDTIME 30 capsule 11 03/28/2024 Active gabapentin (Neurontin) 100 MG capsuleIndications: Neuropathy Take 1 (one) capsule by mouth at bedtime 90 capsule 1 10/04/2023 5 Discontinue d(Reorder) Active Problems Problem Noted Date Diagnosed Date Altered mental status, unspe cified altered mental status type 10/14/2022 Other constipation 12/08/2021 Incontinence of feces 12/08/2021 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 Hypotension 05/16/2021 Altered mental status 03/30/2021 S/P deep brain stimulator placement 04/18/2020 Pre-op evaluation 03/25/2020 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 Overview (06/20/2020): Added automatically from request for surgery [id number] Orthostatic hypotension 12/16/2016 Overview (01/12/2020): Added automatically from request for surgery [id number] Parkinson's disease 11/27/2014 GERD (gastroesophageal reflux disease) 3 Encounters Date Type Department Care Team Description 03/28/2024 Refill [facility] - Neurology [address] [place] [address], [facility] [place] [address] Zak Mathews APRN-CNP Refill Request from Last 3 Months Immunizations Name Administration Dates Next Due [place] primary monoval ent 12+ yr 0.3mL Purple cap 04/11/2020 INFLUENZA VACCINE 01/04/2020 INFLUENZA VACCINE, HIGH-DOSE , QUADR. (FLUZONE HIGH-DOSE QUADRIVALENT; 65Y+), 0.7 ML (HD-IIV4) 01/12/2022,12/30/2019 Family History Medical History Relation Name Comments CAD (Coronary Artery Disease) Brother CAD (Coronary Artery Disease) Father Cancer Mother colon Cancer Sister breast Relation Name Status Comments Brother Father Mother Sister Social History Tobacco Use Types Packs/Day Years Used Date Smoking Tobacco: Never Smokeless Tobacco: Never Tobacco Cessation:Counseling Given: Not Answered Alcohol Use Standard Drinks/Week Comments Not Currently 0.2 (1 standard drink = 0.6 oz p ure alcohol) AUDIT-C Answer Date Recorded Q1: How often do you have a drink containing alcohol? Never 08/04/2021 Q2: How many drinks containi ng alcohol do you have on a typical day when you are drinking? Patient does not drink Q3: How often do you have si x or more drinks on one occasion? Never 08/04/2021 Sex and Gender Information Value Date Recorded Sex Assigned at Not on file Gender Identity Not on file Sexual Orientation Not on file Last Filed Vital Signs Vital Sign Reading Time Taken Comments Blood Pressure 168/90 11/08/2023 3:11 PM CDT Pulse 59 11/08/2023 3:11 PM CDT Temperature 36.5 ??C (97.7 ??F) 09/28/2023 5:50 AM CD T Respiratory Rate 16 09/28/2023 5:50 AM CDT Oxygen Saturation 98% 09/28/2023 5:50 AM CDT Inhaled Oxygen Concentration 21% 03/25/2020 3 :00 PM SECTION LABORER Weight 68.9 kg (152 lb) 11/08/2023 3:11 PM CDT Height 160 cm (5' 3 ) 09/27/2023 1:05 PM CDT Body Mass Index 26.93 09/27/2023 1:05 PM CDT Plan of Treatment Upcoming Encounters Date Type Department Care Team (Late st Contact Info) Description 04/12/2024 3:30 PM SECTION LABORER Office Visit [facility] - Neurology [address] [place] [phone] Zka Mathews APRN-STELLA [address] [place] [address] [place] [phone] 05/24/2024 1:30 PM CDT Office Visit [facility] - GI [address] [place] [address], [place] [phone] Getachew Scott MD [address] [place] [phone] Health Maintenance Due Date Last Done Comments BONE DENSITY TESTING 1945 MEDICARE AWV ? 12 MONTHS 1945 HEPATITIS C SCREENING 05/24/1965 DTAP/TDAP/TD VACCINES (1 - Tdap) 05/28/1966 PNEUMOCOCCAL VACCINE 50+ (1 of 1 - PCV) 05/28/1997 ZOSTER VACCINE (1 of 2) 05/28/1997 Respiratory Syncytial Virus (RSV) Vaccine Pt: or over 60 yrs (1 - 1-dose 75+ series) 05/28/2022 COVID-19 VACCINE (3 - 2023-2 5 season) 2023 09/07/2022, 04/11/2020 INFLUENZA VACCINE (#1) 2023 2, 01/04/2020, 12/30/2019 DEPRESSION SCREENING 03/15/2024 HEPATITIS B VACCINE Aged Out No longe r eligible based on patient's age to complete this topic HIB VACCINE Aged Out No longer eligi ble based on patient's age to complete this topic HPV VACCINE Aged Out No longer eligi ble based on patient's age to complete this topic MENINGOCOCCAL (Group B) VACCINE Aged Out No longer eligible b ased on patient's age to complete this topic MENINGOCOCCAL VACCINE Aged Out No andriy abdulaziz eligible based on patient's age to complete this topic Goals Goal Patient Goal Type Associated Problems Recent Progress Patient-Stated? Author Medication Management General On track( 024 2:30 PM CDT) No Pelon Esquivel, RN Note: Expected end date: ongoing Interventions: Take all medications as prescribed Let your doctor know right away about any changes in your medications Make sure to request a refill of your medication at least one week prior to your last dose Medical Devices Implanted Type Area Stave Grader Device Identifier Shelf Expiration Date Model / Serial / Lot Slnt Dura Duraseal Pg Trilysine Amine 5 Implanted:Qty: 1 on 03/25/2020 by Jai Caballero MD at [facility] Integra [employer] Elana 05/12/[id number] / / [id number] Slnt Dura Duraseal Pg Trilysine Amine 5 Implanted:Qty: 1 on 03/25/2020 by Jai Caballero MD at [facility] Left: Brain Integra [employer] Elana 12/12/20202019357371 / / [id number] [employer] Infinity Dbs System Implanted:Qty: 1 on 03/25/2020 by Jai Caballero MD at [facility] Left: Brain [employer] 03/27/2021 6172 / [id number] / Marcelo Spnl 140mm 6.35mm Ti Str Implanted:Qty: 1 on 03/25/2020 by Jean Carlos Fierro MD at [facility] Left: Brain Pricila Spine Surgical 06/19/2021 6010 / / [id number] [employer] Infinity Dbs System Implanted:Qty: 1 on 04/01/2020 by Shannon Valero MD at [facility] Left: Neck 06/01/2021 6371 / [id number] / Infinity 7 Implantable Pulse Generator Implanted:Qty: 1 on 04/01/2020 by Shannon Valero MD at [facility] Left: Chest Wall 05/30/2021 6662 / [id number] / [employer] Infinity Dbs System Implanted:Qty: 1 on 07/18/2021 by Jai Caballero MD at [facility] Right: Brain [employer] 10/31/2022 6372 / [id number] / Slnt Dura Duraseal Pg Trilysine Amine 5 Implanted:Qty: 1 on 07/18/2021 by Jai Caballero MD at [facility] Right: Brain Integra [employer] Elana 12/12/2022 [id number] / / [id number] Cranial [place] Hole Cover Implanted:Qty: 1 on 07/18/2021 by Jai Caballero MD at [facility] Right: Cranial [employer] 05/21/2023 6010 / / [id number] [facility] [employer] Infinity Dbs System Implanted:Qty: 1 on 07/18/2021 by Jai Caballero MD at [facility] Right: Brain [employer] 09/19/2022 6172 / / [id number] Advance Directives Documents on File Type Date Recorded Patient [employer] Expl anation Adv Directive/Living Will/POA 05/21/2021 11:36 AM * Full Code (Latest Code Status on File) Date Activated Date Inactivated Comments 10/15/2022 7:31 AM 10/15/2022 6:12 PM * Full Code Date Activated Date Inactivated Comments 07/18/2021 4:16 PM 07/20/2021 3:08 PM * Full Code Date Activated Date Inactivated Comments 05/16/2021 9:53 PM 05/18/2021 4:27 PM * Full Code Date Activated Date Inactivated Comments 04/01/2020 8:57 AM 04/02/2020 10:49 AM * Full Code Date Activated Date Inactivated Comments 04/01/2020 8:57 AM 04/01/2020 8:57 AM Care Teams Executive Consultant Relationship Specialty Start Date End Date Michael Ford MD [address] [place] [phone] PCP - General Family Medicine 10/05/21
--- OUTSIDE RECORDS SUMMARY | 2024-04-07 03:15 | XMS_ITS | Referral Summary ---
Author Organization [facility] Address [address] [place] [address] Care Team Providers Care Pipe Threading Machine Operator Name Role Phone Michael Ford MD Primary Care Provider [phone] Source Comments [facility],non-owned Affiliates and Associated Physician Practices is amultiple site organization consisting of ambulatory clinics and hospital sitesin [place], [place], [place] and [place]. This disclosure is being madepursuant to the Care Everywhere program and may not contain all information available regarding this patient. Last updated 17.[facility] Encounters Date Type Department Care Team Description 03/28/2024 Refill [facility] - [facility]rology [facility] [facility], [facility] [place] [phone] Zak Mathews APRN-STELLA Refill Request from Last 3 Months Allergies Active Allergy Reactions Criticality Noted Date [...] 90 tablet 3 07/07/2021 Active B-D 3CC LUER-JESSICA SYR 25GX1 25G X 1 3 ML [...] MOUTH AT BEDTIME 30 capsule 11 03/28/2024 6 Active gabapentin (Neurontin) 100 MG capsuleIndications: Neuropathy [...] (06/20/2020): Added automatically from request for surgery [id number] Orthostatic hypotension 12/16/2016 Overview (01/12/2020): Added automatically from request for surgery [id number] Parkinson's disease 11/27/2014 GERD (gastroesophageal reflux disease) 3 Immunizations Name Administration Dates Next Due [employer] primary monoval ent 12+ yr 0.3mL Purple cap 04/11/2020 INFLUENZA VACCINE 01/04/2020 INFLUENZA VACCINE, HIGH-DOSE , QUADR. (FLUZONE HIGH-DOSE QUADRIVALENT; 65Y+), 0.7 ML (HD-IIV4) 01/12/2022,12/30/2019 Social History Tobacco Use Types Packs/Day Years [...] Oxygen Concentration 21% 03/25/2020 3 :00 PM BUSINESS RULES ANALYST Weight 68.9 kg (152 lb) 11/08/2023 3:11 PM CDT Height 160 cm (5' 3 ) 09/27/2023 1:05 PM CDT Body Mass Index 26.93 09/27/2023 1:05 PM CDT Functional Status Functional Status Response Date of Assess ment Is person deaf or have serious hearing difficult y? No 07/07/2021 Is person blind or have serious difficulty seein g? No 07/07/2021 Does person have serious dif ficulty walking/climbing stairs? No 07/07/2021 Does person have difficulty dressing/bathing? No 07/07/2021 Does person have difficulty doing errands alone? No 07/07/2021 Cognitive Status Response Date of Assessm ent Does person have difficulty concentrating/remembering/making decisions? No 07/07/2021 Plan of Treatment Upcoming Encounters Date Type Department Care Team (Late st Contact Info) Description 04/12/2024 3:30 PM BUSINESS RULES ANALYST Office Visit [facility] - Neurology [address] [place] [address], [place] [phone] Zak Mathews, SEED SORTER-STELLA [address] [place] [address] [place] [phone] 05/24/2024 1:30 PM CDT Office Visit [facility] - [facility] [address] [place] [address], [place] [phone] Getachew Scott MD [address] [place] [phone] Goals Goal Patient Goal Type Associated Problems Recent Progress Patient-Stated? Author Medication Management General On track( 024 2:30 PM CDT) Pelon Arriaga, RN Note: Expected end date: ongoing Interventions: Take all medications as prescribed Let your doctor know right away about any changes in your medications Make sure to request a refill of your medication at least one week prior to your last dose Medical Devices Implanted Type Area Greens Cutter Device Identifier Shelf Expiration Date Model / Serial / Lot Slnt Dura Duraseal Pg Trilysine Amine 5 Implanted:Qty: 1 on 03/25/2020 by Jai Caballero MD at [facility] Integra [employer] Elana 05/12/2021 [id number] / / [id number] Slnt Dura Duraseal Pg Trilysine Amine 5 Implanted:Qty: 1 on 03/25/2020 by Jai Caballero MD at [facility] Left: Brain [employer]gra [employer] Elana 12/12/2020 [id number] / / [id number] [employer] Infinity Dbs System Implanted:Qty: 1 on 03/25/2020 by Jai Caballero MD at [facility] Left: Brain [employer] 03/27/2021 6172 / [id number] / Marcelo Spnl 140mm 6.35mm Ti Str Implanted:Qty: 1 on 03/25/2020 by Jean Carlos Fierro MD at [facility] Left: Brain [employer] 06/19/2021 6010 / / [id number] [employer] Infinity Dbs System Implanted:Qty: 1 on 04/01/2020 by Shannon Valero MD at [facility] Left: Neck 06/01/2021 6371 / [id number] / Infinity 7 Implantable Pulse Generator Implanted:Qty: 1 on 04/01/2020 by Shannon Valero MD at [facility] Left: Chest Wall 05/30/2021 6662 / [id number] / [employer] Infinity Dbs System Implanted:Qty: 1 on 07/18/2021 by Jai Caballero MD at [facility] Right: Brain [employer] 10/31/2022 6372 / [id number] / Slnt Dura Duraseal Pg Trilysine Amine 5 Implanted:Qty: 1 on 07/18/2021 by Jai Caballero MD at [facility] Right: Brain Integra [employer] Elana 12/12/2022 [id number] / / [id number] Cranial [place] Hole Cover Implanted:Qty: 1 on 07/18/2021 by Jai Caballero MD at [facility] Right: Cranial [employer] 05/21/2023 6010 / / [id number] [facility] [employer] Infinity Dbs System Implanted:Qty: 1 on 07/18/2021 by Jai Caballero MD at [facility] Right: Brain [employer] 09/19/2022 6172 / / [id number] Advance Directives Documents on File Type Date Recorded Patient Merchandise Presentation Associate Expl anation Adv Directive/Living Will/POA 05/21/2021 11:36 [...] 8:57 AM 04/01/2020 8:57 AM Care Teams Pipe Threading Machine Operator Relationship Specialty Start Date End Date Michael Ford MD [address] [place] [phone] PCP - General Family Medicine 10/05/21
--- OUTSIDE RECORDS SUMMARY | 2024-04-07 03:15 | XMS_ITS | Continuity of Care Document ---
Author Name [facility] Organization [facility] Care Team Providers Care Massotherapist Name Role Phone [facility] Unavailable Unavailable Medications Combined list of outpatient medications from Department of Defense and Veterans Affairs facilities.Medications provided include 1) outpatient medications from the last 15 months, and 2) patient-reported medications. Medication Details Route Status Patient Instructions Prescription Expires Prescription Number Last Dispense Date Ordering Provider Order Date Order Qty Source ACYCLOVIR (acyclovir) , 5 %, OINT. (G), TOPICAL, [place]arbon PHARMA, 15 g TUBE Active [id number] 4 2023 15 Pharmac y Data Transac tion Service Facilit y CARBIDOPA-L EVODOPA (carbidopa/ levodopa), 25MG-100MG, TABLET, ORAL, CHELSIE PHARMA IN, 100 ea. BOTTLE Active [id number] 4 2023 270 Pharmac y Data Transac tion Service Facilit y CARBIDOPA-L EVODOPA (carbidopa/ levodopa), 25MG-100MG, TABLET, ORAL, CHELSIE PHARMA IN, 100 ea. BOTTLE Active [id number] 4 2023 270 Pharmac y Data Transac tion Service Facilit y CARBIDOPA-L EVODOPA ER (carbidopa/ levodopa), 50MG-200MG, TABLET ER, ORAL, SCIEGEN PHARMAC, 100 ea. BOTTLE Active [id number] 4 2023 90 Pharmac y Data Transac tion Service Facilit y CARBIDOPA-L EVODOPA ER (carbidopa/ levodopa), 50MG-200MG, TABLET ER, ORAL, SCIEGEN PHARMAC, 100 ea. BOTTLE Active [id number] 2023 90 Pharmac y Data Transac tion Service Facilit y CYANOCOBALA MIN INJECTION (cyanocobal chao (vitamin B-12)), 1000MCG/ML, VIAL, INJECTION, VITRUVIAS THERA, 1 ml VIAL Cancele d [id number] : 2023 0 Pharmac y Data Transac tion Service Facilit y CYANOCOBALA MIN INJECTION (cyanocobal chao (vitamin B-12)), 1000MCG/ML, VIAL, INJECTION, SARAH THERA, 1 ml VIAL Active [id number] 4 2023 3 Pharmac y Data Transac tion Service Facilit y DONEPEZIL HCL (DONEPEZIL HCL), 5 MG, TABLET, ORAL, MACLEEyeonix PHARMA, 90 ea. BOTTLE Active [id number] 4 2023 90 Pharmac y Data Transac tion Service Facilit y DONEPEZIL HCL (DONEPEZIL HCL), 5 MG, TABLET, ORAL, VideoCareCAR, 90 ea. BOTTLE Active [id number] 2023 90 Pharmac y Data Transac tion Service Facilit y FLUDROCORTI SONE ACETATE (FLUDROCORT ISONE ACETATE), 0.1MG, TABLET, ORAL, GLOBAL PHARM, 100 ea. BOTTLE Cancele d [id number] : 2023 0 Pharmac y Data Transac tion Service Facilit y FLUDROCORTI SONE ACETATE (FLUDROCORT ISONE ACETATE), 0.1MG, TABLET, ORAL, GLOBAL PHARM, 100 ea. BOTTLE Cancele d [id number] : 2023 0 Pharmac y Data Transac tion Service Facilit y FLUDROCORTI SONE ACETATE (FLUDROCORT ISONE ACETATE), 0.1MG, TABLET, ORAL, GLOBAL PHARM, 100 ea. BOTTLE Cancele d [id number] : 2023 0 Pharmac y Data Transac tion Service Facilit y FOLIC ACID (folic acid), 1 MG, TABLET, ORAL, AMNEAL PHARMACE, 1000 ea. BOTTLE Active [id number] 2023 90 Pharmac y Data Transac tion Service Facilit y FOLIC ACID (folic acid), 1 MG, TABLET, ORAL, AMNEAL PHARMACE, 1000 ea. BOTTLE Active [id number] 4 2023 90 Pharmac y Data Transac tion Service Facilit y GABAPENTIN (gabapentin ), 100 MG, CAPSULE, ORAL, [employer] 500 ea. BOTTLE Active [id number] 2023 90 Pharmac y Data Transac tion Service Facilit y KLOR-CON 10 (potassium chloride), 10 MEQ, TABLET ER, ORAL, UPSHER-RODOLFO H LA, 100 ea. BOTTLE Cancele d [id number] : 2023 0 Pharmac y Data Transac tion Service Facilit y KLOR-CON 10 (potassium chloride), 10 MEQ, TABLET ER, ORAL, UPSHER-RODOLFO H LA, 100 ea. BOTTLE Cancele d [id number] : 2023 0 Pharmac y Data Transac tion Service Facilit y LEVOTHYROXI NE SODIUM (LEVOTHYROX INE SODIUM), 100MCG, TABLET, ORAL, MYLAN, 1000 ea. BOTTLE Active [id number] 4 2023 90 Pharmac y Data Transac tion Service Facilit y LEVOTHYROXI NE SODIUM (LEVOTHYROX INE SODIUM), 100MCG, TABLET, ORAL, MYLAN, 1000 ea. BOTTLE Active [id number] 4 2023 90 Pharmac y Data Transac tion Service Facilit y LUER-JESSICA SYRINGE-NEE DLE (syringe with needle,disp osable, 3 mL), 25GX1 , DISP SYRIN, MISCELL, BD MEDICAL SURG, 100 ea. BOX Active [id number] 2023 3 Pharmac y Data Transac tion Service Facilit y MIDODRINE HCL (midodrine HCl), 10 MG, TABLET, ORAL, ADVAGEN PHARMA, 100 ea. BOTTLE Cancele d [id number] : 2023 0 Pharmac y Data Transac tion Service Facilit y MIDODRINE HCL (midodrine HCl), 10 MG, TABLET, ORAL, ADVAGEN PHARMA, 100 ea. BOTTLE Cancele d [id number] : 2023 0 Pharmac y Data Transac tion Service Facilit y MIDODRINE HCL (midodrine HCl), 10 MG, TABLET, ORAL, ADVAGEN PHARMA, 100 ea. BOTTLE Active [id number] 4 2023 270 Pharmac y Data Transac tion Service Facilit y MIDODRINE HCL (midodrine HCl), 5 MG, TABLET, ORAL, ADVAGEN PHARMA, 100 ea. BOTTLE Cancele d [id number] : 2023 0 Pharmac y Data Transac tion Service Facilit y MIDODRINE HCL (midodrine HCl), 5 MG, TABLET, ORAL, ADVAGEN PHARMA, 100 ea. BOTTLE Active [id number] 2023 270 Pharmac y Data Transac tion Service Facilit y Nitrofurant oin (Daily Secret) 100 CAPSULE in 1 BOTTLE Cancele d [id number] : 2023 0 Pharmac y Data Transac tion Service Facilit y Nitrofurant oin (Daily Secret) 100 CAPSULE in 1 BOTTLE Active [id number] 4 2023 14 Pharmac y Data Transac tion Service Facilit y Nitrofurant oin (Daily Secret) 100 CAPSULE in 1 BOTTLE Active [id number] 3 2022 14 Pharmac y Data Transac tion Service Facilit y NITROFURANT OIN MONO-MACRO (nitrofuran toin monohydrate /macrocryst als), 100 MG, CAPSULE, ORAL, JUBILANT CADIST, 100 ea. BOTTLE Cancele d [id number] : 2023 0 Pharmac y Data Transac tion Service Facilit y NITROFURANT OIN MONO-MACRO (nitrofuran toin monohydrate /macrocryst als), 100 MG, CAPSULE, ORAL, JUBILANT CADIST, 100 ea. BOTTLE Active [id number] 2023 14 Pharmac y Data Transac tion Service Facilit y OMEPRAZOLE (omeprazole ), 40 MG, CAPSULE DR, ORAL, AUROBINDO PHARM, 500 ea. BOTTLE Active [id number] 2023 180 Pharmac y Data Transac tion Service Facilit y OMEPRAZOLE (omeprazole ), 40 MG, CAPSULE DR, ORAL, AUROBINDO PHARM, 500 ea. BOTTLE Active [id number] 2023 180 Pharmac y Data Transac tion Service Facilit y POTASSIUM CHLORIDE (potassium chloride), 10 MEQ, TABLET ER, ORAL, ADVAGEN PHARMA, 100 ea. BOTTLE Cancele d [id number] : 2023 0 Pharmac y Data Transac tion Service Facilit y POTASSIUM CHLORIDE (potassium chloride), 10 MEQ, TABLET ER, ORAL, ADVAGEN PHARMA, 100 ea. BOTTLE Active [id number] 4 2023 180 Pharmac y Data Transac tion Service Facilit y SULFAMETHOX AZOLE-TRIME THOPRIM (SULFAMETHO XAZOLE/TRIM ETHOPRIM), 800-160MG, TABLET, ORAL, AUROBINDO PHARM, 500 ea. BOTTLE Active [id number] 4 2023 20 Pharmac y Data Transac tion Service Facilit y Allergies, Adverse Reactions, Alerts Combined list of allergies from Department of Defense and Veterans Affairs facilities. It does not include entries that were removed or entered in error. Substance Category Reaction Severity Reaction type Status Date Reported Comments Source No Known Allergies Drug allergy (disorder) active 05/24/2015 [facility] Ernie BUCKLEY ([facility]) Social History Combined list of available smoking, tobacco, and other social history from Department of Defense and Veterans Affairs facilities. Social History Type Response Date Comment [facility] edward This section is an empty social history section. [employer]
--- OUTSIDE RECORDS SUMMARY | 2024-04-07 03:16 | XMS_ITS | Clinical Summary ---
Author Organization [facility] [address] Address [address] [place] [address] Care Team Providers Care Senior Recruiter Name Role Phone Michael Ford MD Primary Care Provider [phone] Allergies Active Allergy Reactions Criticality Noted Date Comments Hydrocodone Unknown 07/25/2021 Hallucinations Medications levothyroxine sodium (TIROSINT) 100 mcg capsule Take 1 capsule (100 mcg total) by mouth daily Active cholecalciferol (VITAMIN D-3) 1,000 unit Take 1 tablet/capsul e (1,000 Units total) by mouth daily Active folic acid (FOLVITE) 1 mg tablet Take 1 tablet (1 mg total) by mouth daily Active BD LUER-JESSICA SYRINGE 3 mL 25 gauge x 1 syringe 9 Active polyethylene glycol (MIRALAX) 17 gram packetIndication s:constipation Take 1 packet (17 g total) by mouth daily Active acetaminophen 500 mg capsule Take 1 capsule (500 mg total) by mouth every 4 (four) hours as needed Active cyanocobalamin (Vitamin B-12) 1,000 mcg/mL injection every 30 (thirty) days Takes on the 7th 1 Active omeprazole (PriLOSEC) 40 mg capsule Take 1 capsule (40 mg total) by mouth 2 (two) times a day 1 Active calcium carbonate (TUMS) 500 mg (200 mg elemental) chewable tablet Take 1 tablet/chew tab (500 mg total) by mouth daily as needed 2 Active carbidopa-levodo pa CR (SINEMET CR) 50-200 mg per CR tablet Take 1 tablet by mouth nightly 3 Active carbidopa-levodo pa CR (SINEMET CR) 25-100 mg per CR tablet 3 Active donepeziL (ARICEPT) 5 mg tablet Take 1 tablet (5 mg total) by mouth nightly 3 Active potassium chloride ER 10 mEq CR tablet Take 2 tablet/capsul e (20 mEq total) by mouth daily 4 Active midodrine (PROAMATINE) 5 mg tabletIndication s:Symptomatic Orthostatic Hypotension Take 1 tablet (5 mg total) by mouth 3 (three) times a day 270 tablet 3 4 07/01/19 25 Active acyclovir (ZOVIRAX) 5 % ointment 4 Active gabapentin (NEURONTIN) 100 mg capsule TAKE 1 CAPSULE BY MOUTH EVERYDAY AT BEDTIME 4 Active carbidopa-levodo pa (SINEMET) 25-100 mg per tablet TAKE 1 (ONE) TABLET BY MOUTH 3 TIMES DAILY AT 7:30 AM AND 12:30 PM AND 5:30 PM 4 Active levothyroxine (SYNTHROID) 100 mcg tablet Take 1 tablet (100 mcg total) by mouth daily 4 Active fludrocortisone 0.1 mg tablet Take 2 tablets (0.2 mg total) by mouth daily 90 tablet 2 4 Active Active Problems Problem Noted Date Diagnosed Date COVID-19 11/21/2021 Assessment & Plan (11/21/2021 6:00 PM CDT): Having constipation since she quit her Miralax. Wants to use a suppository. Drink fluids. 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 Continue to monitor Blood pressure. 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) from Last 3 Months Surgical History Surgery Date Site/Laterality Comments FOOT SURGERY Bilateral APPENDECTOMY GALLBLADDER SURGERY HYSTERECTOMY partial BLADDER SUSPENSION Medical History Medical History Date Comments Thyroid disease Acid indigestion Diverticulitis Syncope Parkinson's disease (HCC) Family History Medical History Relation Name Comments Heart attack Brother Heart attack Father Cancer Mother Stroke Mother Breast cancer Sister Hypertension Sister Relation Name Status Comments Brother Father (Age 63) Mother (Age 80) Sister Social History Tobacco Use Types Packs/Day Years Used Date Smoking Tobacco: Never Smokeless Tobacco: Never Tobacco Cessation:Counseling Given: Not Answered Alcohol Use Standard Drinks/Week Comments No 0 (1 standard drink = 0.6 oz pur e alcohol) Personal Safety Answer Date Recorded Getting School Help Needed Not on file 03/16 Comments No Sex and Gender Information Value Date Recorded Sex Assigned at Not on file 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 Gender Identity Not on file Sexual Orientation Not on file Obstetrics History Last Filed Vital Signs Vital Sign Reading Time Taken Comments Blood Pressure 160/90 01/06/2024 10:00 AM CDT Pulse 56 01/06/2024 10:00 AM CDT Temperature 36.6 ??C (97.9 ??F) 09/03/2023 12:43 PM C DT Respiratory Rate 14 09/03/2023 12:43 PM CDT Oxygen Saturation 98% 01/06/2024 10:00 AM CDT Inhaled Oxygen Concentration - - Weight 69.4 kg (153 lb) 01/06/2024 10:00 AM CDT Height 160 cm (5' 3 ) 01/06/2024 10:00 AM CDT Body Mass Index 27.1 01/06/2024 10:00 AM CDT Plan of Treatment Health Maintenance Due Date Last Done Comments Depression Screening 1945 Fall Risk Assessment 1945 Hepatitis C Screening 1945 Osteoporosis Screening-Bone Density Scan 1945 DTaP/Tdap/Td Vaccine (1 - Tdap) 05/28/1958 Hepatitis B Screening 05/28/1965 Zoster Vaccine (1 of 2) 05/28/1997 Pneumococcal vaccine 65+ (1 of 1 - PCV) 05/28/2012 Well Visit 65+ 05/28/2012 Influenza Vaccine (#1) 2023 01/04/2020, 2016 Insurance MEDICARE [employer] MEDICARE FOR LIFE MEDICARE FOR LIFE Care Teams Senior Recruiter Relationship Specialty Start Date End Date Michael Ford MD PCP - General Family Medicine 12/23/21
--- OUTSIDE RECORDS SUMMARY | 2024-04-07 03:16 | XMS_ITS | Encounter Summary ---
Author Organization [facility] Address [address] [place] [address] Care Team Providers Care Taping Machine Operator Name Role Phone Michael Ford MD Primary Care Provider [phone] Encounter Details Date Type Department Care Team (Late st Contact Info) Description 04/30/2023 Telephone [facility] Cardiology [address] [place] [address] Pravin Corley MD [address] [place], [place] [id number] Social History Tobacco Use Types Packs/Day Years Used Date Smoking Tobacco: Never Smokeless Tobacco: Never Alcohol Use Standard Drinks/Week Comments No 0 (1 standard drink = 0.6 oz pur e alcohol) Personal Safety Answer Date Recorded Getting School Help Needed Not on file 03/16 Comments No Sex and Gender Information Value Date Recorded Sex Assigned at Not on file 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
--- OUTSIDE RECORDS SUMMARY | 2024-04-07 03:16 | XMS_ITS | CONTINUITY OF CARE DOCUMENT ---
Author Name bart arriaga Address Unknown Organization [facility] [facility] Address [address] [place] [address] Phone [phone] Care Team Providers Care Porcelain Waxer Name Role Phone bart arriaga Unavailable Unavailable INSURANCE PROVIDERS Payer name Policy type / Coverage type [place] [employer] ID [employer] insurance company [id number] [id number]
--- OUTSIDE RECORDS SUMMARY | 2024-04-07 03:16 | XMS_ITS | Patient Health Summary ---
Author Organization [facility] [email or web address] Address [address] [place] [address] Care Team Providers Care Sound Truck Operator Name Role Phone Michael Ford MD Primary Care Provider [phone] Note from [facility] [place],non-owned Affiliates and Associated Physician Practices is amultiple site organization consisting of ambulatory clinics and hospital sitesin [place], [place], [place] and [place]. This disclosure is being madepursuant to the Care Everywhere program and may not contain all information available regarding this patient. Last updated 17.[facility] Allergies * Hydrocodone(Other) Medications * Be aware that medications may not be up to date on this document. Alwaysverify current medications with the patient. * levothyroxine (SYNTHROID) 100 MCG tablet Take 1 (one) tablet by mouth daily before breakfast * cyanocobalamin (VITAMIN B-12) injection(Started 02/05/2020) 100 (one hundred) mcg every 30 days * vitamin D3 (CHOLECALCIFEROL) 25 MCG (1000 UNITS) tablet Take 1 (one) tablet by mouth once daily * ibuprofen (MOTRIN) 600 MG tablet(Started 05/18/2021) Take 1 (one) tablet by mouth every 6 hours as needed for Pain * omeprazole (PRILOSEC) 40 MG capsule(Started 06/24/2021) TAKE 1 CAPSULE TWICE A DAY BEFORE BREAKFAST AND SUPPER 3 refills by 06/24/2022 * folic acid (FOLVITE) 1 MG tablet(Started 07/07/2021) TAKE 1 TABLET DAILY 3 refills by 07/07/2022 * B-D 3CC LUER-JESSICA SYR 25GX1 25G X 1 3 ML MISC(Started 12/10/2021) USE DIRECTED MONTHLY * polyethylene glycol 3350 (Miralax) 17 GM/SCOOP powder(Started 10/15/2022) Take 17 (seventeen) g by mouth once daily * acyclovir (Zovirax) 5 % ointment(Started 04/09/2023) APPLY CREAM TO NOSE 5 TIMES A DAY FOR 4 DAYS * donepezil (Aricept) 5 MG tablet(Started 02/26/2023) Take 1 (one) tablet by mouth at bedtime * potassium chloride ER 10 MEQ tablet(Started 04/16/2023) Take 1 (one) tablet by mouth 2 times daily * fludrocortisone (Florinef) 0.1 MG tablet(Started 09/27/2023) Take 2 (two) tablets by mouth once daily Reasons: Blood Pressure Drop Upon Standing 3 refills by 09/26/2024 * carbidopa-levodopa (Sinemet) 25-100 MG tablet(Started 11/08/2023) Take 1 (one) tablet by mouth 3 times daily At 7:30 AM and 12:30 PM and 5:30 PM 3 refills by 11/07/2024 * carbidopa-levodopa CR (Sinemet CR) 50-200 MG tablet(Started 11/08/2023) Take 1 (one) tablet by mouth at bedtime 3 refills by 11/07/2024 * midodrine (Proamatine) 5 MG tablet(Started 11/08/2023) Take 1 (one) tablet by mouth 3 times daily 3 refills by 11/07/2024 * gabapentin (Neurontin) 100 MG capsule(Started 03/28/2024) TAKE 1 CAPSULE BY MOUTH AT BEDTIME 11 refills by 03/28/2025 Ended Medications* gabapentin (Neurontin) 100 MG capsule(Started 10/04/2023) (Discontinued) Take 1 (one) capsule by mouth at bedtime 1 refill by 10/03/2024 Active Problems Problem Noted Date Diagnosed Date Altered mental status, unspe cified altered mental status type 10/14/2022 Other constipation 12/08/2021 Incontinence of feces 12/08/2021 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 Weight 68.9 kg (152 lb) 11/08/2023 3:11 PM CDT Height 160 cm (5' 3 ) 09/27/2023 1:05 PM CDT Body Mass Index 26.93 09/27/2023 1:05 PM CDT Medical Devices Implanted Type Area Gun Synchronizer Device Identifier Shelf Expiration Date Model / Serial / Lot Slnt Dura Duraseal Pg Trilysine Amine 5 Implanted:Qty: 1 on 03/25/2020 by Jai Caballero MD at [facility] [employer] Elana 05/12/[id number] / / [id number] Slnt Dura Duraseal Pg Trilysine Amine 5 Implanted:Qty: 1 on 03/25/2020 by Jai Caballero MD at [facility] Left: Brain [employer] Elana 12/12/[id number] / / [id number] [employer] Infinity Dbs System Implanted:Qty: 1 on 03/25/2020 by Jai Caballero MD at [facility] Left: Brain [employer] 03/27/2021 [id number] / [id number] / Marcelo Spnl 140mm 6.35mm Ti Str Implanted:Qty: 1 on 03/25/2020 by Jean Carlos Fierro MD at [facility] Left: Brain [employer] 06/19/2021 6010 / / [id number] [employer] Infinity Dbs System Implanted:Qty: 1 on 04/01/2020 by Shannon Valero MD at [facility] Left: Neck 06/01/2021 [id number] / [id number] / Infinity 7 Implantable Pulse Generator Implanted:Qty: 1 on 04/01/2020 by Shannon Valero MD at [facility] Left: Chest Wall 05/30/2021 6662 / [id number] / [employer] Infinity Dbs System Implanted:Qty: 1 on 07/18/2021 by Jai Caballero MD at [facility] Right: Brain [employer] 10/31/2022 6372 / [id number] / Slnt Dura Duraseal Pg Trilysine Amine 5 Implanted:Qty: 1 on 07/18/2021 by Jai Caballero MD at [facility] Right: Brain [employer]ana 12/12/2022 [id number] / / [id number] Cranial [place] Cover Implanted:Qty: 1 on 07/18/2021 by Jai Caballero MD at [facility] Right: Cranial [employer] 05/21/2023 6010 / / [id number] [employer] Infinity Dbs System Implanted:Qty: 1 on 07/18/2021 by Jai Caballero MD at [facility] Right: Brain [employer] 09/19/2022 6172 / / [id number] Procedures * OH ANALYZE NEUROSTIM NO PROG(Performed 11/08/2023) Performed for Parkinson's disease with dyskinesia and fluctuating manifestations * CT CERVICAL SPINE WO CONTRAST(Performed 09/28/2023) Performed for Fall, initial encounter * CT HEAD WO CONTRAST(Performed 09/28/2023) Performed for Fall, initial encounter * URINALYSIS W/MICROSCOPIC NO CULTURE(Performed 09/27/2023) * TSH REFLEX FREE T4(Performed 09/27/2023) * COMPREHENSIVE METABOLIC PANEL(Performed 09/27/2023) * CBC W AUTO DIFFERENTIAL(Performed 09/27/2023) * OH ANALYS BRN NPGT PRGRMG 15 MIN(Performed 07/14/2023) Performed for Parkinson's disease with dyskinesia and fluctuating manifestations * OH ANALYS BRN NPGT PRGRMG 15 MIN(Performed 05/13/2023) Performed for Parkinson's disease with dyskinesia and fluctuating manifestations * OH ANALYS BRN NPGT PRGRMG ADDL 15(Performed 05/13/2023) Performed for Parkinson's disease with dyskinesia and fluctuating manifestations * OH ANALYS BRN NPGT PRGRMG 15 MIN(Performed 04/19/2023) Performed for Parkinson's disease with dyskinesia and fluctuating manifestations * OH ANALYS BRN NPGT PRGRMG ADDL 15(Performed 04/19/2023) Performed for Parkinson's disease with dyskinesia and fluctuating manifestations * OH ANALYS BRN NPGT PRGRMG ADDL 15(Performed 12/16/2022) Performed for Parkinson's disease with fluctuating manifestations, unspecified whether dyskinesia present * OH ANALYS BRN NPGT PRGRMG 15 MIN(Performed 12/16/2022) Performed for Parkinson's disease with fluctuating manifestations, unspecified whether dyskinesia present * OH ANALYS BRN NPGT PRGRMG 15 MIN(Performed 10/29/2022) Performed for Parkinson disease (CMS/HCC) * CARDIAC EKG ORDER(Performed 10/15/2022) * CT ANGIO BRAIN AND NECK(Performed 10/15/2022) Performed for Altered mental status, unspecified altered mental status type * VITAMIN B6(Performed 10/15/2022) Performed for Altered mental status, unspecified altered mental status type * VITAMIN E(Performed 10/14/2022) Performed for Altered mental status, unspecified altered mental status type * VITAMIN B2(Performed 10/14/2022) Performed for Altered mental status, unspecified altered mental status type * VITAMIN B12(Performed 10/14/2022) Performed for Altered mental status, unspecified altered mental status type * VITAMIN B1(Performed 10/14/2022) Performed for Altered mental status, unspecified altered mental status type * NIACIN (VITAMIN B3)(Performed 10/14/2022) Performed for Altered mental status, unspecified altered mental status type * FOLATE(Performed 10/14/2022) Performed for Altered mental status, unspecified altered mental status type * EEG AWAKE OR DROWSY ROUTINE(Performed 10/14/2022) * TROPONIN-I HIGH SENSITIVE REFLEX 1HOUR(Performed 10/14/2022) * URINALYSIS REFLEX TO MICROSCOPIC NO CULTURE(Performed 10/14/2022) * XR CHEST 1VW PORTABLE(Performed 10/14/2022) Performed for Altered mental status, unspecified altered mental status type * CULTURE BLOOD(Performed 10/14/2022) * BLOOD GASES MAIK + COOX PANEL(Performed 10/14/2022) * COMPREHENSIVE METABOLIC PANEL(Performed 10/14/2022) * TROPONIN-I HIGH SENSITIVE BASELINE + 1HR(Performed 10/14/2022) * CULTURE BLOOD(Performed 10/14/2022) * CT HEAD WO CONTRAST(Performed 10/14/2022) Performed for Altered mental status, unspecified altered mental status type * AMMONIA(Performed 10/14/2022) * PROCALCITONIN LEVEL(Performed 10/14/2022) * PT-INR SLH(Performed 10/14/2022) * CBC W AUTO DIFFERENTIAL(Performed 10/14/2022) * LACTIC ACID BLOOD REFLEX TO REPEAT(Performed 10/14/2022) * OH ANALYS BRN NPGT PRGRMG 15 MIN(Performed 09/11/2022) Performed for Parkinson disease (CMS/HCC) * OH ANALYS BRN NPGT PRGRMG 15 MIN(Performed 05/15/2022) Performed for Parkinson disease (CMS/HCC) * XR ABDOMEN KUB(Performed 04/22/2022) Performed for Constipation, unspecified constipation type * OH ANALYS BRN NPGT PRGRMG 15 MIN(Performed 02/26/2022) Performed for Parkinson disease (CMS/HCC) * XR CHEST 2VW(Performed 02/26/2022) Performed for Fall, initial encounter * XR SKULL 3VW OR LESS(Performed 02/26/2022) Performed for Fall, initial encounter * OH ANALYS BRN NPGT PRGRMG 15 MIN(Performed 12/18/2021) Performed for Parkinson's disease (CMS/HCC) * OH ANALYS BRN NPGT PRGRMG 15 MIN(Performed 11/27/2021) Performed for Parkinson's disease * OH ANALYS BRN NPGT PRGRMG ADDL 15(Performed 11/27/2021) Performed for Parkinson's disease * MANOMETRY/SENSATION TESTING ANORECTAL(Performed 10/13/2021) Performed for Constipation, unspecified constipation type, Incontinence of feces, unspecified fecalincontinence type * SARS-COV-2 (COVID-19) RAPID(Performed 10/05/2021) * URINALYSIS REFLEX TO MICROSCOPIC NO CULTURE(Performed 10/05/2021) * LIPASE BLOOD(Performed 10/05/2021) * COMPREHENSIVE METABOLIC PANEL(Performed 10/05/2021) * CBC W AUTO DIFFERENTIAL(Performed 10/05/2021) * OH ANALYS BRN NPGT PRGRMG 15 MIN(Performed 09/16/2021) Performed for Parkinson's disease * OH ANALYS BRN NPGT PRGRMG ADDL 15(Performed 09/16/2021) Performed for Parkinson's disease * CT HEAD WO CONTRAST(Performed 08/21/2021) Performed for Weakness * OH ANALYS BRN NPGT PRGRMG 15 MIN(Performed 08/20/2021) Performed for Parkinson's disease * OH ANALYS BRN NPGT PRGRMG ADDL 15(Performed 08/20/2021) Performed for Parkinson's disease * OH ANALYS BRN NPGT PRGRMG 15 MIN(Performed 08/12/2021) Performed for Parkinson's disease * OH ANALYS BRN NPGT PRGRMG ADDL 15(Performed 08/12/2021) Performed for Parkinson's disease * OH ANALYS BRN NPGT PRGRMG ADDL 15(Performed 08/12/2021) Performed for Parkinson's disease * OH ANALYS BRN NPGT PRGRMG ADDL 15(Performed 08/12/2021) Performed for Parkinson's disease * CARDIAC EKG ORDER(Performed 08/05/2021) * TYPE + SCREEN PANEL(Performed 08/04/2021) * TROPONIN I(Performed 08/04/2021) * PT-INR SLH(Performed 08/04/2021) * COMPREHENSIVE METABOLIC PANEL(Performed 08/04/2021) * CBC W AUTO DIFFERENTIAL(Performed 08/04/2021) * EKG 12-LEAD(Performed 08/04/2021) Performed for Weakness * GLUCOSE - POINT OF CARE(Performed 08/04/2021) * CT HEAD WO CONTRAST(Performed 08/04/2021) Performed for Weakness * CARDIAC EKG ORDER(Performed 07/23/2021) * CT HEAD WO CONTRAST(Performed 07/18/2021) Performed for Parkinson's disease * XR CHEST 1VW(Performed 07/18/2021) Performed for Parkinson's disease * XR SKULL 3VW OR LESS(Performed 07/18/2021) Performed for Parkinson's disease * ENDOTRACHEAL TUBE NOTE(Performed 07/18/2021) * FL OARM SURGERY(Performed 07/18/2021) Performed for Surgery, elective * INSERTION CRANIAL NEUROSTIMULATOR LEAD/ELECTRODES(Performed 07/18/2021) Performed for Parkinsons * TYPE + SCREEN PANEL(Performed 07/18/2021) Performed for Parkinson's disease * URINALYSIS W/MICROSCOPIC REFLEX TO CULTURE(Performed 07/10/2021) Performed for Pre-op testing * PTT SLH(Performed 07/10/2021) Performed for Pre-op testing * PT-INR SLH(Performed 07/10/2021) Performed for Pre-op testing * CBC W AUTO DIFFERENTIAL(Performed 07/10/2021) Performed for Pre-op testing * BASIC METABOLIC PANEL (CALCIUM TOTAL)(Performed 07/10/2021) Performed for Pre-op testing * EKG 12-LEAD(Performed 07/10/2021) Performed for Pre-op testing * COLONOSCOPY SCREEN(Performed 07/07/2021) Performed for Epigastric pain, Constipation, unspecified constipation type, Altered bowel habits * OH ED EGD FLEX TRANSORAL DX(Performed 07/07/2021) Performed for Epigastric pain, Constipation, unspecified constipation type, Altered bowel habits * ENDOSCOPY, COLON, SCREENING(Performed 07/07/2021) * EGD(Performed 07/07/2021) * OH ANALYS BRN NPGT PRGRMG 15 MIN(Performed 07/02/2021) Performed for Parkinson's disease * OH ANALYS BRN NPGT PRGRMG 15 MIN(Performed 06/04/2021) Performed for Parkinson's disease * OH ANALYS BRN NPGT PRGRMG ADDL 15(Performed 06/04/2021) Performed for Parkinson's disease * NM GASTRIC EMPTYING(Performed 06/02/2021) Performed for Other constipation, Pain of upper abdomen * XR ABDOMEN KUB(Performed 06/02/2021) Performed for Other constipation * CARDIAC EKG ORDER(Performed 05/23/2021) * CARDIAC EKG ORDER(Performed 05/22/2021) * MAGNESIUM BLOOD(Performed 05/18/2021) Performed for Delirium * PHOSPHORUS BLOOD(Performed 05/18/2021) Performed for Delirium * CBC W/O DIFFERENTIAL(Performed 05/18/2021) Performed for Delirium * BASIC METABOLIC PANEL (CALCIUM TOTAL)(Performed 05/18/2021) Performed for Delirium * OT EVAL AND TREAT(Performed 05/17/2021) * PT EVAL AND TREAT(Performed 05/17/2021) * MAGNESIUM BLOOD(Performed 05/17/2021) Performed for Delirium * PHOSPHORUS BLOOD(Performed 05/17/2021) Performed for Delirium * BASIC METABOLIC PANEL (CALCIUM TOTAL)(Performed 05/17/2021) Performed for Delirium * CBC W/O DIFFERENTIAL(Performed 05/17/2021) Performed for Delirium * URINE DRUG SCREEN IMMUNOASSAY(Performed 05/17/2021) Performed for Delirium * CULTURE BLOOD(Performed 05/17/2021) Performed for Delirium * CULTURE URINE(Performed 05/17/2021) Performed for Delirium * SARS-COV-2 (COVID-19)+INFLU A+B PCR RAPID(Performed 05/17/2021) Performed for Delirium * ALCOHOL ETHYL BLOOD(Performed 05/17/2021) Performed for Delirium * PROCALCITONIN LEVEL(Performed 05/17/2021) Performed for Delirium * LACTIC ACID BLOOD(Performed 05/17/2021) Performed for Delirium * CULTURE BLOOD(Performed 05/17/2021) Performed for Delirium * EKG 12-LEAD(Performed 05/16/2021) Performed for Altered mental status, unspecified altered mental status type * CT HEAD WO CONTRAST(Performed 05/16/2021) Performed for Hypotension, unspecified hypotension type * XR CHEST 1VW PORTABLE(Performed 05/16/2021) Performed for Hypotension, unspecified hypotension type * TSH REFLEX FREE T4(Performed 05/16/2021) * COMPREHENSIVE METABOLIC PANEL(Performed 05/16/2021) * CBC W AUTO DIFFERENTIAL(Performed 05/16/2021) * EKG 12-LEAD(Performed 05/16/2021) Performed for Delirium * URINALYSIS W/MICROSCOPIC NO CULTURE(Performed 05/16/2021) * OH ANALYS BRN NPGT PRGRMG 15 MIN(Performed 04/25/2021) Performed for Parkinson's disease * OH ANALYS BRN NPGT PRGRMG 15 MIN(Performed 03/26/2021) Performed for Parkinson's disease * OH ANALYS BRN NPGT PRGRMG 15 MIN(Performed 02/26/2021) Performed for Parkinson's disease * LIPASE BLOOD(Performed 01/22/2021) Performed for Pain of upper abdomen * T4 FREE(Performed 01/22/2021) Performed for Constipation, unspecified constipation type, Pain of upper abdomen * TSH(Performed 01/22/2021) Performed for Constipation, unspecified constipation type, Pain of upper abdomen * AMYLASE BLOOD(Performed 01/22/2021) Performed for Pain of upper abdomen * COMPREHENSIVE METABOLIC PANEL(Performed 01/22/2021) Performed for Constipation, unspecified constipation type, Pain of upper abdomen * CBC W AUTO DIFFERENTIAL(Performed 01/22/2021) Performed for Constipation, unspecified constipation type, Pain of upper abdomen * OH ANALYS BRN NPGT PRGRMG 15 MIN(Performed 12/11/2020) Performed for Parkinson's disease * OH ANALYZE NEUROSTIM NO PROG(Performed 09/10/2020) Performed for Parkinson's disease * OH ANALYS BRN NPGT PRGRMG 15 MIN(Performed 07/10/2020) Performed for Parkinson's disease * HELICOBACTER PYLORI ANTIBODY IGG(Performed 2020) Performed for Epigastric pain * HELICOBACTER PYLORI ANTIBODY IGM(Performed 2020) Performed for Epigastric pain * HELICOBACTER PYLORI ANTIBODY IGA(Performed 2020) Performed for Epigastric pain * OH ANALYS BRN NPGT PRGRMG 15 MIN(Performed 05/23/2020) Performed for Parkinson's disease * OH ANALYS BRN NPGT PRGRMG 15 MIN(Performed 04/26/2020) Performed for Parkinson's disease * OH ANALYS BRN NPGT PRGRMG ADDL 15(Performed 04/26/2020) Performed for Parkinson's disease * OH ANALYS BRN NPGT PRGRMG ADDL 15(Performed 04/26/2020) Performed for Parkinson's disease * OH ANALYS BRN NPGT PRGRMG ADDL 15(Performed 04/26/2020) Performed for Parkinson's disease * BASIC METABOLIC PANEL (CALCIUM TOTAL)(Performed 04/02/2020) Performed for Parkinson's disease * CBC W AUTO DIFFERENTIAL(Performed 04/02/2020) Performed for Parkinson's disease * XR SKULL 3VW OR LESS(Performed 04/01/2020) Performed for Parkinson's disease * XR NECK SOFT TISSUE(Performed 04/01/2020) Performed for Parkinson's disease * XR CHEST 1VW PORTABLE(Performed 04/01/2020) Performed for Parkinson's disease * INSERTION CRANIAL NEUROSTIMULATOR GENERATOR(Performed 04/01/2020) Performed for Parkinsons * ENDOTRACHEAL TUBE NOTE(Performed 04/01/2020) * SARS-COV-2 (COVID-19) IN HOUSE(Performed 03/28/2020) Performed for Parkinson's disease * CT HEAD WO CONTRAST(Performed 03/26/2020) Performed for Parkinson's disease * XR SKULL 3VW OR LESS(Performed 03/25/2020) Performed for Parkinson's disease * FL OARM SURGERY(Performed 03/25/2020) Performed for Parkinson's disease * INSERTION CRANIAL NEUROSTIMULATOR LEAD/ELECTRODES(Performed 03/25/2020) Performed for Parkinsons * CT HEAD WO CONTRAST(Performed 03/25/2020) Performed for Pre-op evaluation * TYPE + SCREEN PANEL(Performed 03/25/2020) Performed for Pre-op evaluation * SARS-COV-2 (COVID-19) IN HOUSE(Performed 03/21/2020) Performed for Pre-op testing * XR CHEST 2VW(Performed 03/19/2020) Performed for Pre-op testing * URINALYSIS W/MICROSCOPIC NO CULTURE(Performed 03/19/2020) Performed for Pre-op testing * PTT SLH(Performed 03/19/2020) Performed for Pre-op testing * PT-INR SLH(Performed 03/19/2020) Performed for Pre-op testing * CBC W AUTO DIFFERENTIAL(Performed 03/19/2020) Performed for Pre-op testing * BASIC METABOLIC PANEL (CALCIUM TOTAL)(Performed 03/19/2020) Performed for Pre-op testing * EKG 12-LEAD(Performed 03/19/2020) Performed for Pre-op testing * MRI BRAIN WWO CONTRAST(Performed 12/15/2019) Performed for Parkinson disease * CREATININE - POCT INTERFACED(Performed 12/15/2019) * FL ESOPHAGRAM(Performed 02/01/2013) * MOTILITY ESOPHAGEAL(Performed 10/27/2012) Performed for Chest Pain, Unspecified * ESOPHAGEAL FUNCTION TEST(Performed 10/27/2012) Performed for Chest Pain, Unspecified * NUC BREATH TEST ANALYZE(Performed 03/20/2010) Performed for Helicobacter pylori (H. pylori) Results * OH ANALYZE NEUROSTIM NO PROG (11/08/2023 3:45 PM CDT) Narrative Zak Mathews APRN-CNP - 11/08/2023 3:45 PM CDT Zak Mathews APRN-CNP ? 11/08/2023 ??3:46 PM Please see office notes for documentation- Thanks Zak BALES PROCEDURE/MINOR SURGICAL ORDERABLES * CT CERVICAL SPINE WO CONTRAST (09/28/2023 2:36 AM CDT) Anatomical Region Laterality Modality Spine Computed Tomogra phy 09/28/2023 7:52 AM CDT Impressions 09/28/2023 4:28 PM CDT IMPRESSION: 1.No acute intracranial hemorrhage, midline shift, or significant mass effect. 2.Stable position of the right and left deep brain stimulator leads. 3.No evidence of acute fracture in the cervical spine. 4.Multilevel degenerative disc and joint disease of the cervical spine as outlined. > Dictated by Brooke Gutierrez MD, (vice president underwriting). IMehul MD have personally reviewed and interpreted this examination/study. > Interpreting Provider: Mehul Rodriguez MD on 09/28/2023 4:28 PM Narrative 09/28/2023 4:28 PM CDT PROCEDURE: ??CT HEAD WO CONTRAST, CT CERVICAL SPINE WO CONTRAST, DATE/TIME OF EXAM: ??09/28/2023 2:37 AM, LOCATION ??[facility] INDICATION: W19.XXXA: Fall, initial encounter EXAMINATION: 1.Computed tomography (CT) of the head without contrast 2.CT of the cervical spine without contrast ADDITIONAL CLINICAL INFORMATION: Ordering Provider Reason For Exam: ??r/o traumatic bleed (accession [id number]), r/o fx misalignment (accession [id number]) TECHNIQUE: CT of the head and cervical spine was performed without contrast according to standard protocol. CT dose reduction technique was used, including Automated Exposure Control. COMPARISON: CT head without contrast on 10/14/2022. CT angiography of the head and neck from 10/15/2022. FINDINGS: Head: Redemonstration of postoperative findings of bilateral frontal approach deep brain stimulator placement with the tip of the leads stable in position compared to the prior streak artifacts from the DBS leads limits local evaluation of portions of the brain parenchyma. No acute intra- or extra-axial fluid collections are identified. There is mild cerebral volume loss with associated ex vacuo ventricular dilatation. The basilar cisterns are patent. No mass effect or midline shift is seen. The zayas-white matter differentiation is normal. Periventricular white matter hypoattenuation is nonspecific, but can be seen in the setting of chronic small vessel ischemic disease. No acute calvarial fracture is identified. The orbits appear normal. There is mild paranasal sinus disease. Trace opacification in the dependent left mastoid air cells. The mastoid air cells are otherwise grossly clear. Expected postsurgical changes in the scalp and upper neck soft tissues. Cervical spine: The patient's head is tilted to the left resulting in subluxation of the left atlantoaxial joint. Slight exaggeration of the cervical lordosis. Suspected trace anterolisthesis of C5 on C6 and possibly C6 on C7. The alignment is otherwise maintained. Vertebral bodies are normal in height without evidence of acute fracture. Other than middle atlantoaxial joint osteoarthritis, the craniocervical junction appears normal. There is mild to advanced degenerative disc disease. Disc osteophyte complex at the level of C6-C7 and to a lesser extent C4 the C5 and C5-C6. No high-grade central canal stenosis is seen. There are varying degrees of mild facet osteoarthritis. There are varying degrees of mild to advanced uncovertebral joint osteoarthritis with the same degree of neural foraminal stenosis at these levels. Small benign calcified granuloma in the right lung apex. Brain injury guidelines: Skull fracture: No Subdural hematoma: No subdural hematoma. Epidural hematoma: No epidural hematoma. Intraparenchymal hemorrhage: No intraparenchymal hemorrhage. Subarachnoid hemorrhage: No subarachnoid hemorrhage. Intraventricular hemorrhage: No. Midline shift: No. Procedure Note Mehul Rodriguez MD - 09/28/2023 PROCEDURE: CT HEAD WO CONTRAST, CT CERVICAL SPINE WO CONTRAST,DATE/TIME OF EXAM: 09/28/2023 2:37 AM, LOCATION [facility] INDICATION: W19.XXXA: Fall, initial encounter EXAMINATION: 1.Computed tomography (CT) of the head without contrast 2.CT of the cervical spine without contrast ADDITIONAL CLINICAL INFORMATION: Ordering Provider Reason For Exam: r/o traumatic bleed (accession [id number]), r/o fx misalignment (accession [id number]) TECHNIQUE: CT of the head and cervical spine was performed withoutcontrast according to standard protocol. CT dose reduction technique was used, including Automated Exposure Control. COMPARISON: CT head without contrast on 10/14/2022. CT angiography of the head and neck from 10/15/2022. FINDINGS: Head: Redemonstration of postoperative findings of bilateral frontal approach deep brain stimulator placement with the tip of the leads stable in position compared to the prior streak artifacts from the DBS leadslimits local evaluation of portions of the brain parenchyma. No acute intra- or extra-axial fluid collections are identified. Thereis mild cerebral volume loss with associated ex vacuo ventriculardilatation. The basilar cisterns are patent. No mass effect or midline shift isseen. The zayas-white matter differentiation is normal. Periventricular white matter hypoattenuation is nonspecific, but can be seen in the setting of chronic small vessel ischemic disease. No acute calvarial fracture is identified. The orbits appear normal. There is mild paranasal sinus disease. Trace opacification in the dependent left mastoid air cells.The mastoid air cells are otherwise grossly clear. Expected postsurgical changes in the scalp and upper neck soft tissues. Cervical spine: The patient's head is tilted to the left resulting in subluxation of the left atlantoaxial joint. Slight exaggeration of the cervical lordosis. Suspected trace anterolisthesis of C5 on C6 and possibly C6 on C7. The alignment is otherwise maintained. Vertebral bodies are normal in height without evidence of acute fracture. Other than middle atlantoaxial joint osteoarthritis, the craniocervical junction appears normal. There ismild to advanced degenerative disc disease. Disc osteophyte complex at thelevel of C6-C7 and to a lesser extent C4 the C5 and C5-C6. No high-gradecentral canal stenosis is seen. There are varying degrees of mild facet osteoarthritis. There are varying degrees of mild to advanceduncovertebral joint osteoarthritis with the same degree of neural foraminal stenosisat these levels. Small benign calcified granuloma in the right lung apex. Brain injury guidelines: Skull fracture: No Subdural hematoma: No subdural hematoma. Epidural hematoma: No epidural hematoma. Intraparenchymal hemorrhage: No intraparenchymal hemorrhage. Subarachnoid hemorrhage: No subarachnoid hemorrhage. Intraventricular hemorrhage: No. Midline shift: No. IMPRESSION: 1.No acute intracranial hemorrhage, midline shift, or significant mass effect. 2.Stable position of the right and left deep brain stimulator leads. 3.No evidence of acute fracture in the cervical spine. 4.Multilevel degenerative disc and joint disease of the cervical spineas outlined. > Dictated by Brooke Gutierrez MD, (vice president underwriting). I, Mehul Rodriguez MD have personally reviewed and interpretedthis examination/study. > Interpreting Provider: Mehul Rodriguez MD on 09/28/2023 4:28 PM Brenda Janessa Martínez HEALTH INSPECTOR-GRAIN MIXER CT ORDERABLE S * CT HEAD WO CONTRAST (09/28/2023 2:36 AM CDT) Only the most recent of8 resultswithin the time period is included. Anatomical Region Laterality Modality Head Computed Tomogra phy 09/28/2023 7:52 AM CDT Impressions 09/28/2023 4:28 PM CDT IMPRESSION: 1.No acute intracranial hemorrhage, midline shift, or significant mass effect. 2.Stable position of the right and left deep brain stimulator leads. 3.No evidence of acute fracture in the cervical spine. 4.Multilevel degenerative disc and joint disease of the cervical spine as outlined. > Dictated by Brooke Gutierrez MD, (vice president underwriting). I, Mehul Rodriguez MD have personally reviewed and interpreted this examination/study. > Interpreting Provider: Mehul Rodriguez MD on 09/28/2023 4:28 PM Narrative 09/28/2023 4:28 PM CDT PROCEDURE: ??CT HEAD WO CONTRAST, CT CERVICAL SPINE WO CONTRAST, DATE/TIME OF EXAM: ??09/28/2023 2:37 AM, LOCATION ??[facility] INDICATION: W19.XXXA: Fall, initial encounter EXAMINATION: 1.Computed tomography (CT) of the head without contrast 2.CT of the cervical spine without contrast ADDITIONAL CLINICAL INFORMATION: Ordering Provider Reason For Exam: ??r/o traumatic bleed (accession [id number]), r/o fx misalignment (accession [id number]) TECHNIQUE: CT of the head and cervical spine was performed without contrast according to standard protocol. CT dose reduction technique was used, including Automated Exposure Control. COMPARISON: CT head without contrast on 10/14/2022. CT angiography of the head and neck from 10/15/2022. FINDINGS: Head: Redemonstration of postoperative findings of bilateral frontal approach deep brain stimulator placement with the tip of the leads stable in position compared to the prior streak artifacts from the DBS leads limits local evaluation of portions of the brain parenchyma. No acute intra- or extra-axial fluid collections are identified. There is mild cerebral volume loss with associated ex vacuo ventricular dilatation. The basilar cisterns are patent. No mass effect or midline shift is seen. The zayas-white matter differentiation is normal. Periventricular white matter hypoattenuation is nonspecific, but can be seen in the setting of chronic small vessel ischemic disease. No acute calvarial fracture is identified. The orbits appear normal. There is mild paranasal sinus disease. Trace opacification in the dependent left mastoid air cells. The mastoid air cells are otherwise grossly clear. Expected postsurgical changes in the scalp and upper neck soft tissues. Cervical spine: The patient's head is tilted to the left resulting in subluxation of the left atlantoaxial joint. Slight exaggeration of the cervical lordosis. Suspected trace anterolisthesis of C5 on C6 and possibly C6 on C7. The alignment is otherwise maintained. Vertebral bodies are normal in height without evidence of acute fracture. Other than middle atlantoaxial joint osteoarthritis, the craniocervical junction appears normal. There is mild to advanced degenerative disc disease. Disc osteophyte complex at the level of C6-C7 and to a lesser extent C4 the C5 and C5-C6. No high-grade central canal stenosis is seen. There are varying degrees of mild facet osteoarthritis. There are varying degrees of mild to advanced uncovertebral joint osteoarthritis with the same degree of neural foraminal stenosis at these levels. Small benign calcified granuloma in the right lung apex. Brain injury guidelines: Skull fracture: No Subdural hematoma: No subdural hematoma. Epidural hematoma: No epidural hematoma. Intraparenchymal hemorrhage: No intraparenchymal hemorrhage. Subarachnoid hemorrhage: No subarachnoid hemorrhage. Intraventricular hemorrhage: No. Midline shift: No. Procedure Note Mehul Rodriguez MD - 09/28/2023 PROCEDURE: CT HEAD WO CONTRAST, CT CERVICAL SPINE WO CONTRAST,DATE/TIME OF EXAM: 09/28/2023 2:37 AM, LOCATION [facility] INDICATION: W19.XXXA: Fall, initial encounter EXAMINATION: 1.Computed tomography (CT) of the head without contrast 2.CT of the cervical spine without contrast ADDITIONAL CLINICAL INFORMATION: Ordering Provider Reason For Exam: r/o traumatic bleed (accession [id number]), r/o fx misalignment (accession [id number]) TECHNIQUE: CT of the head and cervical spine was performed withoutcontrast according to standard protocol. CT dose reduction technique was used, including Automated Exposure Control. COMPARISON: CT head without contrast on 10/14/2022. CT angiography of the head and neck from 10/15/2022. FINDINGS: Head: Redemonstration of postoperative findings of bilateral frontal approach deep brain stimulator placement with the tip of the leads stable in position compared to the prior streak artifacts from the DBS leadslimits local evaluation of portions of the brain parenchyma. No acute intra- or extra-axial fluid collections are identified. Thereis mild cerebral volume loss with associated ex vacuo ventriculardilatation. The basilar cisterns are patent. No mass effect or midline shift isseen. The zayas-white matter differentiation is normal. Periventricular white matter hypoattenuation is nonspecific, but can be seen in the setting of chronic small vessel ischemic disease. No acute calvarial fracture is identified. The orbits appear normal. There is mild paranasal sinus disease. Trace opacification in the dependent left mastoid air cells.The mastoid air cells are otherwise grossly clear. Expected postsurgical changes in the scalp and upper neck soft tissues. Cervical spine: The patient's head is tilted to the left resulting in subluxation of the left atlantoaxial joint. Slight exaggeration of the cervical lordosis. Suspected trace anterolisthesis of C5 on C6 and possibly C6 on C7. The alignment is otherwise maintained. Vertebral bodies are normal in height without evidence of acute fracture. Other than middle atlantoaxial joint osteoarthritis, the craniocervical junction appears normal. There ismild to advanced degenerative disc disease. Disc osteophyte complex at thelevel of C6-C7 and to a lesser extent C4 the C5 and C5-C6. No high-gradecentral canal stenosis is seen. There are varying degrees of mild facet osteoarthritis. There are varying degrees of mild to advanceduncovertebral joint osteoarthritis with the same degree of neural foraminal stenosisat these levels. Small benign calcified granuloma in the right lung apex. Brain injury guidelines: Skull fracture: No Subdural hematoma: No subdural hematoma. Epidural hematoma: No epidural hematoma. Intraparenchymal hemorrhage: No intraparenchymal hemorrhage. Subarachnoid hemorrhage: No subarachnoid hemorrhage. Intraventricular hemorrhage: No. Midline shift: No. IMPRESSION: 1.No acute intracranial hemorrhage, midline shift, or significant mass effect. 2.Stable position of the right and left deep brain stimulator leads. 3.No evidence of acute fracture in the cervical spine. 4.Multilevel degenerative disc and joint disease of the cervical spineas outlined. > Dictated by Brooke Gutierrez MD, (vice president underwriting). Mehul Giles MD have personally reviewed and interpretedthis examination/study. > Interpreting Provider: Mehul Rodriguez MD on 09/28/2023 4:28 PM Brenda Martínez HEALTH INSPECTOR-GRAIN MIXER CT ORDERABLE S * (ABNORMAL) URINALYSIS W/MICROSCOPIC NO CULTURE (09/27/2023 3:15 PM CDT) Only the most recent of3 resultswithin the time period is included. Color UA Yellow Straw, Yellow 09/27/2023 3:58 PM [facility] Clarity UA Slt Cloudy(A) Clear 09/27/2023 3:58 PM [facility] Specific [place] UA 1.020 1.005 - 1.030 09/27/2023 3:58 PM [facility] pH UA 5.0 5.0 - 8.0 pH 09/27/2023 3:58 PM [facility] Protein UA Negative Negative 09/27/2023 3:58 PM [facility] Glucose UA Negative Negative 09/27/2023 3:58 PM [facility] Ketone UA Trace(A) Negative 09/27/2023 3:58 PM [facility] Bilirubin UA Negative Negative 09/27/2023 3:58 PM [facility] Blood UA Negative Negative 09/27/2023 3:58 PM [facility] Nitrite UA Negative Negative 09/27/2023 3:58 PM [facility] Leukocyte Esterase 2+(A) Negative 09/27/2023 3:58 PM [facility] Urobilinogen UA 2.0(A) Negative mg/dL 09/27/2023 3:58 PM [facility] RBC UA 3-5 None Seen, 0-2, 3-5 /HPF 09/27/2023 3:58 PM [facility] WBC UA 11-20(A) None Seen, 0-5 /HPF 09/27/2023 3:58 PM [facility] Squamous Epithelial Cells UA 3-5 None Seen, 0-2, 3-5 /HPF 09/27/2023 3:58 PM [facility] Mucus UA 1+ /LPF 09/27/2023 3:58 PM [facility] Urine URINE SPECIMEN OBTAINED BY CLEAN CATCH PROCEDURE / Unknown Collection / Unknown 09/27/2023 3:15 PM CDT 09/27/2023 3:34 PM CDT Narrative [facility] - 09/27/2023 3:58 PM CDT Lupe Vallecillo PA-C LAB - URINALYSIS O RDERABLES Performing Organization Address City/[facility]/ZIP Co de Phone Number [facility] [address] [place] [address], [facility] [phone] * TSH REFLEX FREE T4 (09/27/2023 2:56 PM CDT) Only the most recent of2 resultswithin the time period is included. [facility] TSH 0.423 0.350 - 4.940 uIU/mL 09/27/2023 4:00 PM CDT [facility] Blood BLOOD SPECIMEN / Unknown Venipuncture / Unknown 09/27/2023 2:56 PM CDT 09/27/2023 3:15 PM CDT Lupe MITCHELL-C LAB - CHEMISTRY OR DERABLES Performing Organization Address City/[facility]/ZIP Co de Phone Number [facility] [address] [place] [address], [facility] [phone] * (ABNORMAL) CBC W AUTO DIFFERENTIAL (09/27/2023 2:56 PM CDT) Only the most recent of9 resultswithin the time period is included. WBC 4.3 4.0 - 10.7 x10E9/L 09/27/2023 3:21 PM CDT [facility] RBC Count 3.78(L) 3.90 - 5.20 x10E12/L 09/27/2023 3:21 PM CDT [facility] Hemoglobin 12.6 11.9 - 15.8 g/dL 09/27/2023 3:21 PM CDT [facility] Hematocrit 37.0 34.8 - 46.1 % 09/27/2023 3:21 PM CDT [facility] MCV 97.9 80.0 - 98.0 fL 09/27/2023 3:21 PM [facility] MCH 33.3 26.7 - 33.6 pg 09/27/2023 3:21 PM [facility] MCHC 34.1 31.7 - 36.3 g/dL 09/27/2023 3:21 PM [facility] RDW-CV 12.4 11.3 - 14.8 % 09/27/2023 3:21 PM [facility] Platelet Count 167 150 - 420 x10E9/L 09/27/2023 3:21 PM [facility] MPV 9.8 7.8 - 11.4 fL 09/27/2023 3:21 PM [facility] Neutrophil % 58.3 41.0 - 74.0 % 09/27/2023 3:21 PM [facility] Lymphocyte % 34.3 17.0 - 47.0 % 09/27/2023 3:21 PM [facility] Monocyte % 5.8 3.0 - 11.0 % 09/27/2023 3:21 PM [facility] Eosinophil % 0.7 0.0 - 7.0 % 09/27/2023 3:21 PM [facility] Basophil % 0.7 0.0 - 1.6 % 09/27/2023 3:21 PM [facility] Immature Granulocytes % 0.2 0.0 - 1.0 % 09/27/2023 3:21 PM [facility] Neutrophil Absolute 2.50 1.60 - 7.50 x10E9/L 09/27/2023 3:21 PM [facility] Lymphocyte Absolute 1.47 1.00 - 4.40 x10E9/L 09/27/2023 3:21 PM [facility] Monocyte Absolute 0.25 0.15 - 1.00 x10E9/L 09/27/2023 3:21 PM [facility] Eosinophil Absolute 0.03 0.00 - 0.60 x10E9/L 09/27/2023 3:21 PM [facility] Basophil Absolute 0.03 0.00 - 0.13 x10E9/L 09/27/2023 3:21 PM [facility] Blood BLOOD SPECIMEN / Unknown Venipuncture / Unknown 09/27/2023 2:56 PM CDT 09/27/2023 3:15 PM CDT Lupe Vallecillo PA-C LAB - HEMATOLOGY O RDERABLES [facility] [address] [place] [address], [facility] [phone] * (ABNORMAL) COMPREHENSIVE METABOLIC PANEL (09/27/2023 2:56 PM CDT) Only the most recent of6 resultswithin the time period is included. BUN 20 7 - 26 mg/dL 09/27/2023 3:42 PM [facility] Creatinine 1.07(H) 0.56 - 0.96 mg/dL 09/27/2023 3:42 PM [facility] Sodium 142 136 - 145 mmol/L 09/27/2023 3:42 PM [facility] Potassium 4.0 3.5 - 4.5 mmol/L 09/27/2023 3:42 PM [facility] Chloride 107 98 - 107 mmol/L 09/27/2023 3:42 PM [facility] CO2 30(H) 22 - 29 mmol/L 09/27/2023 3:42 PM [facility] Glucose 111 70 - 115 mg/dL 09/27/2023 3:42 PM [facility] Calcium 9.5 8.4 - 10.2 mg/dL 09/27/2023 3:42 PM [facility] Protein Total 6.9 6.0 - 8.3 g/dL 09/27/2023 3:42 PM [facility] Albumin 4.0 3.4 - 5.0 g/dL 09/27/2023 3:42 PM [facility] Bilirubin Total 0.8 0.2 - 1.2 mg/dL 09/27/2023 3:42 PM [facility] Alkaline Phosphatase 103 40 - 150 U/L 09/27/2023 3:42 PM [facility] ALT <5(L) 5 - 55 U/L 09/27/2023 3:42 PM [facility] AST 11 5 - 34 U/L 09/27/2023 3:42 PM [facility] Anion Gap 5(L) 6 - 16 09/27/2023 3:42 PM [facility] BUN/Creatinine Ratio 19 7 - 23 09/27/2023 3:42 PM T [facility] Osmolality Calculated 297(H) 275 - 295 mOsm/kg 09/27/2023 3:42 PM [facility] Albumin/Globulin Ratio 1.4 1.1 - 2.3 09/27/2023 3:42 PM [facility] eGFR by CKD-EPI 54(L) >=90 mL/min/1.7 3 m2 09/27/2023 3:42 PM [facility] Blood BLOOD SPECIMEN / Unknown Venipuncture / Unknown 09/27/2023 2:56 PM CDT 09/27/2023 3:15 PM CDT Lupe Vallecillo PA-C LAB - CHEMISTRY OR DERABLES [facility] [address] [place] [address], [facility] [phone] * [place] ANALYS BRN NPGT PRGRMG 15 MIN (07/14/2023 3:20 PM CDT) Narrative Zak Mathews APRN-GRAIN MIXER - 07/14/2023 3:20 PM CDT Zak Mathews HEALTH INSPECTOR-GRAIN MIXER ? 07/14/2023 ??3:21 PM Please see office notes for documentation- Thanks Zak Mathews HEALTH INSPECTOR-GRAIN MIXER PROCEDURE/MINOR SURGICAL ORDERABLES * OH ANALYS BRN NPGT PRGRMG ADDL 15, [place] ANALYS BRN NPGT PRGRMG 15 MIN (05/13/2023 4:08 PM MACHINE IRONER) Narrative Zak Mathews HEALTH INSPECTOR-GRAIN MIXER - 05/13/2023 4:08 PM MACHINE IRONER Zak Mathews HEALTH INSPECTOR-GRAIN MIXER ? 05/13/2023 ??4:08 PM Please see office notes for documentation - Thanks Karpagam Settu HEALTH INSPECTOR-GRAIN MIXER PROCEDURE/MINOR SURGICAL ORDERABLES * OH ANALYS BRN NPGT PRGRMG ADDL 15, [place] ANALYS BRN NPGT PRGRMG 15 MIN (04/19/2023 3:22 PM MACHINE IRONER) Narrative SettZak corona, HEALTH INSPECTOR-GRAIN MIXER - 04/19/2023 3:22 PM MACHINE IRONER SettuEthanpagam, HEALTH INSPECTOR-GRAIN MIXER ? 04/19/2023 ??3:23 PM Please see office notes for documentation- Thanks Karpagam Settu HEALTH INSPECTOR-GRAIN MIXER PROCEDURE/MINOR SURGICAL ORDERABLES * OH ANALYS BRN NPGT PRGRMG 15 MIN, [place] ANALYS BRN NPGT PRGRMG ADDL 15 (12/16/2022 4:13 PM CDT) Narrative SettDavide coronagabridger, HEALTH INSPECTOR-GRAIN MIXER - 12/16/2022 4:13 PM CDT Settu, Ethanpagam, HEALTH INSPECTOR-GRAIN MIXER ? 12/16/2022 ??4:13 PM Please see office notes for documentation- Thanks Karpagam Settu HEALTH INSPECTOR-GRAIN MIXER PROCEDURE/MINOR SURGICAL ORDERABLES * OH ANALYS BRN NPGT PRGRMG 15 MIN (10/29/2022 2:37 PM CDT) Narrative SettDavide coronagam, HEALTH INSPECTOR-GRAIN MIXER - 10/29/2022 2:37 PM CDT Settu, Ethanpagam, HEALTH INSPECTOR-GRAIN MIXER ? 10/29/2022 ??2:37 PM Please see office notes for documentation- Thanks Karpagam Settu HEALTH INSPECTOR-GRAIN MIXER PROCEDURE/MINOR SURGICAL ORDERABLES * CARDIAC EKG ORDER (10/15/2022 3:35 PM CDT) Only the most recent of5 resultswithin the time period is included. Narrative 10/15/2022 3:35 PM CDT Ordered by an unspecified provider. Scanned Document CARDIAC SERVICES ORD ERABLES * CT ANGIO BRAIN AND NECK (10/15/2022 10:25 AM CDT) Anatomical Region Laterality Modality Head Computed Tomogra phy 10/15/2022 10:4 3 AM CDT Impressions 10/15/2022 10:56 AM CDT IMPRESSION: 1. No acute intracranial hemorrhage. 2. No large arterial occlusions or significant stenoses identified in the head or neck. > Interpreting Provider: Adolfo Painting MD on 10/15/2022 10:56 AM Narrative 10/15/2022 10:56 AM CDT PROCEDURE: ??CT ANGIO BRAIN AND NECK, DATE/TIME OF EXAM: ??10/15/2022 10:25 AM, LOCATION ??[facility] INDICATION: R41.82: Altered mental status, unspecified altered mental status type ADDITIONAL CLINICAL INFORMATION: Ordering Provider Reason For Exam: ??vascular event Technologist Note: Additional: EXAMINATION: 1. Computed tomographic (CT) angiography of the head without and with contrast 2. CT angiography of the neck with contrast TECHNIQUE: CT of the head was performed without contrast according to standard protocol. Then CT angiography of the head and neck was obtained after the uneventful administration of 75 mL Isovue-370 intravenous contrast. Three dimensional postprocessing was performed by the technologist and sent to the workstation for review. COMPARISON: No prior study is available for comparison at the time of this dictation. FINDINGS: Non-angiographic findings: Bifrontal approach deep brain stimulators are redemonstrated, terminating in the thalami. No acute intracranial hemorrhage or intra- or extra-axial fluid collections are identified. There is mild cerebral volume loss with associated ex vacuo ventricular dilatation. The basal cisterns are patent. No mass effect or midline shift is seen. The zayas-white matter differentiation is normal. Periventricular white matter hypoattenuation is a nonspecific finding that may be indicative of chronic small vessel ischemic disease. There is atherosclerotic calcification of the carotid siphons. ?? The visualized portions of the orbits, paranasal sinuses, and mastoids appear normal. No acute calvarial fracture is identified. No soft tissue abnormalities are identified in the neck. Moderate multilevel degenerative disc and joint disease is noted in the cervical spine. Angiographic findings: Neck: There is atherosclerotic disease of the aortic arch. The configuration of the brachiocephalic vessels is typical. There is scattered atherosclerotic calcification of the innominate and subclavian arteries. The right common and internal carotid arteries as well as the right carotid bifurcation are patent. There is atherosclerotic disease in the left carotid bifurcation and origin of the left internal carotid artery without focal stenosis. Other than atherosclerotic calcifications in the distal left internal carotid artery, the left common and internal carotid arteries otherwise appear patent. The cervical vertebral arteries are patent. The left vertebral artery is dominant. Head: There is atherosclerotic disease involving the distal internal carotid arteries without significant focal stenosis. The anterior cerebral arteries are patent. The middle cerebral arteries ??are patent. The posterior cerebral arteries are patent. The distal vertebral arteries are patent. The basilar artery is patent patent. No aneurysms, vascular occlusions, or intracranial stenoses are identified. Procedure Note Adolfo Painting MD - 10/15/2022 PROCEDURE: CT ANGIO BRAIN AND NECK, DATE/TIME OF EXAM: 10/15/2022 10:25AM, LOCATION [facility] INDICATION: R41.82: Altered mental status, unspecified altered mental status type ADDITIONAL CLINICAL INFORMATION: Ordering Provider Reason For Exam: vascular event Technologist Note: Additional: EXAMINATION: 1. Computed tomographic (CT) angiography of the head without and with contrast 2. CT angiography of the neck with contrast TECHNIQUE: CT of the head was performed without contrast according to standard protocol. Then CT angiography of the head and neck was obtained after the uneventful administration of 75 mL Isovue-370 intravenous contrast. Three dimensional postprocessing was performed by the technologist and sent to the workstation for review. COMPARISON: No prior study is available for comparison at the time ofthis dictation. FINDINGS: Non-angiographic findings: Bifrontal approach deep brain stimulators are redemonstrated,terminating in the thalami. No acute intracranial hemorrhage or intra- or extra-axial fluidcollections are identified. There is mild cerebral volume loss with associated exvacuo ventricular dilatation. The basal cisterns are patent. No mass effect or midline shift is seen. The zaysa-white matter differentiation is normal. Periventricular white matter hypoattenuation is a nonspecific findingthat may be indicative of chronic small vessel ischemic disease. There is atherosclerotic calcification of the carotid siphons. The visualized portions of the orbits, paranasal sinuses, and mastoids appear normal. No acute calvarial fracture is identified. No soft tissue abnormalities are identified in the neck. Moderate multilevel degenerative disc and joint disease is noted in the cervical spine. Angiographic findings: Neck: There is atherosclerotic disease of the aortic arch. The configurationof the brachiocephalic vessels is typical. There is scatteredatherosclerotic calcification of the innominate and subclavian arteries. The rightcommon and internal carotid arteries as well as the right carotid bifurcationare patent. There is atherosclerotic disease in the left carotid bifurcation and origin of the left internal carotid artery without focal stenosis. Other than atherosclerotic calcifications in the distal left internal carotid artery, the left common and internal carotid arteries otherwise appear patent. The cervical vertebral arteries are patent. The left vertebral artery is dominant. Head: There is atherosclerotic disease involving the distal internal carotid arteries without significant focal stenosis. The anterior cerebralarteries are patent. The middle cerebral arteries are patent. The posterior cerebral arteries are patent. The distal vertebral arteries are patent.The basilar artery is patent patent. No aneurysms, vascular occlusions, or intracranial stenoses are identified. IMPRESSION: 1. No acute intracranial hemorrhage. 2. No large arterial occlusions or significant stenoses identified inthe head or neck. > Interpreting Provider: Adolfo Painting MD on 10/15/2022 10:56 AM Jorge Alberto Spring MD CT ORDERABLES * (ABNORMAL) VITAMIN B6 (10/15/2022 3:47 AM CDT) [facility] Vitamin B6 10.0(L) 20.0 - 125.0 nmol/L 10/18/2022 3:46 PM CDT [facility] ([facility]) Comment: INTERPRETIVE INFORMATION: Vitamin B6 (Pyridoxal 5-Phosphate) Pyridoxal 5'-phosphate measured in a specimen collected following an 8-hour or overnight fast accurately indicates vitamin B6 nutritional status. Non-fasting specimen concentration reflects recent vitamin intake. This test was developed and its performance characteristics determined by [facility]. It has not been cleared or approved by the US Food and Drug Administration. This test was performed in a CLIA certified laboratory and is intended for clinical purposes. Performed By: [facility] [address] [place] [id number] Senior Living Sales Counselor: Fahad Lakhani MD, PhD CLIA Number: [id number] Blood BLOOD SPECIMEN / Unknown Venipuncture / Unknown 10/15/2022 3:47 AM CDT 10/15/2022 4:41 AM CDT Burt Bates MD LAB - CHEMISTRY OR DERABLES Performing Organization Address [facility]/ZIP Co de Phone Number [facility] ([facility]) [address] * NIACIN (VITAMIN B3) (10/14/2022 10:28 PM CDT) [facility] Niacin 2.04 0.50 - 8.45 ug/mL 10/21/2022 2:17 PM CDT [facility] ([facility]) Comment: ?? Adult Reference Range ??> or = 10 years: Normal ?0.50 - 8.45 ug/mL Low ?< 0.50 ug/mL High ?> 8.45 ug/mL ?? Pediatric Reference Range ??<10 Years: Normal ?0.50 - 8.91 ug/mL Low ?< 0.50 ug/mL High ?> 8.91 ug/mL ?? The performance characteristics of the listed assay was validated by [facility]. The [place] FDA has not approved or cleared this test. The results of this assay can be used for clinical diagnosis without FDA approval. [facility] is a CLIA certified, CAP accredited laboratory for performing high complexity assays such as this one. ?? Testing Performed at: [facility] [address] [place] [address] Blood BLOOD SPECIMEN / Unknown Venipuncture / Unknown 10/14/2022 10:28 PM CDT 10/14/2022 10:38 PM CDT Jesus Glass MD LAB - CHEMISTRY ORD ERABLES [facility]) [address] * VITAMIN E (10/14/2022 10:28 PM CDT) [facility] Vitamin E Alpha Tocopherol 9.1 5.5 - 18.0 mg/L 10/18/2022 11:57 AM CDT [facility] ([facility]) Comment: This test was developed and its performance characteristics determined by [facility]. It has not been cleared or approved by the US Food and Drug Administration. This test was performed in a CLIA certified laboratory and is intended for clinical purposes. Vitamin E Gamma Tocopherol 0.8 0.0 - 6.0 mg/L 10/18/2022 11:57 AM CDT [facility] ([facility]) Comment: Performed By: [facility] [address] [place] [address] Senior Living Sales Counselor: Fahad Lakhani MD, PhD CLIA Number: [id number] Blood BLOOD SPECIMEN / Unknown Venipuncture / Unknown 10/14/2022 10:28 PM CDT 10/14/2022 11:26 PM CDT Jesus Glass MD LAB - CHEMISTRY ORD ERABLES [facility]) [address] [place] [address] * (ABNORMAL) VITAMIN B1 (10/14/2022 10:28 PM CDT) [facility] Vitamin B1 Whole Blood 285(H) 70 - 180 nmol/L 10/18/2022 4:20 AM CDT [facility] ([facility]) Comment: INTERPRETIVE INFORMATION: Vitamin B1, Whole Blood This assay measures the concentration of thiamine diphosphate (TDP), the primary active form of vitamin B1. Approximately 90 percent of vitamin B1 present in whole blood is TDP. Thiamine and thiamine monophosphate, which comprise the remaining 10 percent, are not measured. This test was developed and its performance characteristics determined by [facility]. It has not been cleared or approved by the US Food and Drug Administration. This test was performed in a CLIA certified laboratory and is intended for clinical purposes. Performed By: [facility] [address] [place] [address] Senior Living Sales Counselor: Fahad Lakhani MD, PhD CLIA Number: [id number] Blood BLOOD SPECIMEN / Unknown Venipuncture / Unknown 10/14/2022 10:28 PM CDT 10/14/2022 10:38 PM CDT Jesus Glass MD LAB - CHEMISTRY ORD ERABLES Performing Organization Address City/[facility]/ZIP Co de Phone Number [facility]) [address] [place] [address] * VITAMIN B2 (10/14/2022 10:28 PM CDT) Vitamin B2 6 5 - 50 nmol/L 10/18/2022 2:36 PM CDT [facility] ([facility]) Comment: INTERPRETIVE INFORMATION: Vitamin B2, Plasma This test was developed and its performance characteristics determined by [facility]. It has not been cleared or approved by the US Food and Drug Administration. This test was performed in a CLIA certified laboratory and is intended for clinical purposes. Performed By: [facility] [address] [place] [address] Senior Living Sales Counselor: Fahad Lakhani MD, PhD CLIA Number: [id number] Blood BLOOD SPECIMEN / Unknown Venipuncture / Unknown 10/14/2022 10:28 PM CDT 10/14/2022 10:38 PM CDT Jesus Glass MD LAB - CHEMISTRY ORD ERABLES Performing Organization Address [facility]/ZIP Co de Phone Number [facility] ([facility]) [address] [place] [address] * (ABNORMAL) FOLATE (10/14/2022 10:28 PM CDT) Folate >40.0(H) 7.0 - 31.4 ng/mL 10/15/2022 1:08 AM CDT [facility] Blood BLOOD SPECIMEN / Unknown Venipuncture / Unknown 10/14/2022 10:28 PM CDT 10/14/2022 10:38 PM CDT Jesus Glass MD LAB - CHEMISTRY ORD ERABLES [address] [address], [facility] [phone] * VITAMIN B12 (10/14/2022 10:28 PM CDT) Vitamin B12 548 213 - 816 pg/mL 10/15/2022 12:17 AM CDT [facility] Blood BLOOD SPECIMEN / Unknown Venipuncture / Unknown 10/14/2022 10:28 PM CDT 10/14/2022 10:38 PM CDT Jesus Glass MD LAB - CHEMISTRY ORD ERABLES Performing Organization Address City/[facility]/ZIP Co de Phone Number [address] [address], [facility] [phone] * TROPONIN-I HIGH SENSITIVE REFLEX 1HOUR (10/14/2022 1:37 PM CDT) Pathologist [facility] Troponin I High Sensitive 4 <=14 ng/L 10/14/2022 2:14 PM CDT [facility] Delta Troponin I HS 10/14/2022 2:14 PM CDT [facility] Comment:Delta value intentio thiago not calculated. Baseline to 1 hour specimen collection interval exceeded. Blood BLOOD SPECIMEN / Unknown Venipuncture / Unknown 10/14/2022 1:37 PM CDT 10/14/2022 1:43 PM CDT Burt Bates MD LAB - CHEMISTRY OR DERABLES Performing Organization Address [facility]/ZIP Co de Phone Number [address] [address], [facility] [phone] * (ABNORMAL) URINALYSIS REFLEX TO MICROSCOPIC NO CULTURE (10/14/2022 12:11 PM CDT) Only the most recent of2 resultswithin the time period is included. Color UA Yellow Straw, Yellow 10/14/2022 12:23 PM CDT [facility] Clarity UA Clear Clear 10/14/2022 12:23 PM CDT [facility] Specific [place] UA 1.009 1.005 - 1.030 10/14/2022 12:23 PM CDT [facility] pH UA 8.0 5.0 - 8.0 pH 10/14/2022 12:23 PM [facility] Protein UA Negative Negative 10/14/2022 12:23 PM [facility] Glucose UA Negative Negative 10/14/2022 12:23 PM [facility] Ketone UA Negative Negative 10/14/2022 12:23 PM [facility] Bilirubin UA Negative Negative 10/14/2022 12:23 PM [facility] Blood UA 1+(A) Negative 10/14/2022 12:23 PM [facility] Nitrite UA Negative Negative 10/14/2022 12:23 PM [facility] Leukocyte Esterase Negative Negative 10/14/2022 12:23 PM [facility] Urobilinogen UA Negative Negative mg/dL 10/14/2022 12:23 PM [facility] RBC UA 3-5 None Seen, 0-2, 3-5 /HPF 10/14/2022 12:23 PM [facility] WBC UA 0-5 None Seen, 0-5 /HPF 10/14/2022 12:23 PM [facility] Squamous Epithelial Cells UA 0-2 None Seen, 0-2, 3-5 /HPF 10/14/2022 12:23 PM [facility] Mucus UA 1+ /LPF 10/14/2022 12:23 PM [facility] Hyaline Casts UA 0-2 None Seen, 0-2 /LPF 10/14/2022 12:23 PM [facility] Urine URINE SPECIMEN OBTAINED BY CLEAN CATCH PROCEDURE / Unknown 10/14/2022 12:11 PM CDT 10/14/2022 12:11 PM CDT [facility] - 10/14/2022 12:23 PM CDT Burt Bates MD LAB - URINALYSIS O RDERABLES [facility] [address] [place] [address], [facility] [phone] * XR CHEST 1VW PORTABLE (10/14/2022 12:04 PM CDT) Only the most recent of3 resultswithin the time period is included. Anatomical Region Laterality Modality Chest Radiographic Ivana ging 10/14/2022 12:3 4 PM CDT Narrative 10/14/2022 12:38 PM CDT PROCEDURE: ??XR CHEST 1VW PORTABLE DATE/TIME OF EXAM: ??10/14/2022 12:04 PM Indication: R41.82: Altered mental status, unspecified altered mental status type COMPARISON: 02/26/2022. FINDINGS/IMPRESSION: A DBS generator is seen over the left chest laterally, with leads extending to the right and left neck, beyond the margins of the image. The lungs are not fully inflated; there is minimal basilar atelectasis. There is no pulmonary consolidation, pleural effusion, or pneumothorax. The heart size and mediastinal contours are normal. The aorta is atherosclerotic. The visible bony thorax is intact. > Interpreting Provider: Maynor Richardson MD on 10/14/2022 12:38 PM Procedure Note Maynor Richardson MD - 10/14/2022 PROCEDURE: XR CHEST 1VW PORTABLE DATE/TIME OF EXAM: 10/14/2022 12:04 PM Indication: R41.82: Altered mental status, unspecified altered mental status type COMPARISON: 02/26/2022. FINDINGS/IMPRESSION: A DBS generator is seen over the left chest laterally, with leadsextending to the right and left neck, beyond the margins of the image. The lungs are not fully inflated; there is minimal basilar atelectasis. There is no pulmonary consolidation, pleural effusion, or pneumothorax.The heart size and mediastinal contours are normal. The aorta is atherosclerotic. The visible bony thorax is intact. > Interpreting Provider: Maynor Richardson MD on 10/14/2022 12:38 PM Burt Bates MD DIAGNOSTIC IMAGING ORDERABLES * CULTURE BLOOD (10/14/2022 11:53 AM CDT) Only the most recent of4 resultswithin the time period is included. Culture No growth day 5 [place] 10/19/2022 5:30 PM CDT [facility] MICROBIOLOGY Blood PERIPHERAL BLOOD / Unknown Venipuncture / Unknown 10/14/2022 11:53 AM CDT 10/14/2022 11:59 AM CDT Burt Bates MD LAB - MICROBIOLOGY ORDERABLES [facility] MICROBIOLOGY [address] [place] [address], [facility] [phone] * TROPONIN-I HIGH SENSITIVE BASELINE + 1HR (10/14/2022 11:50 AM CDT) Pathologist [facility] Troponin I High Sensitive 6 <=14 ng/L 10/14/2022 12:29 PM T [facility] Blood BLOOD SPECIMEN / Unknown Venipuncture / Unknown 10/14/2022 11:50 AM CDT 10/14/2022 11:54 AM CDT Burt Bates MD LAB - CHEMISTRY OR DERABLES Performing Organization Address City/[facility]/ZIP Co de Phone Number [facility] [address] [place] [address], [facility] [phone] * (ABNORMAL) BLOOD GASES MAIK + COOX PANEL (10/14/2022 11:50 AM CDT) pH Venous 7.40 7.32 - 7.42 pH 10/14/2022 12:05 PM [facility] pO2 Venous 28(L) 35 - 40 mmHg 10/14/2022 12:05 PM [facility] pCO2 Venous 51(H) 40 - 50 mmHg 10/14/2022 12:05 PM [facility] HCO3 Venous 31.6(H) 20 - 30 mmol/L 10/14/2022 12:05 PM [facility] Base Excess Venous 5.5(H) -2.0 - 2.0 mmol/L 10/14/2022 12:05 PM [facility] Oxyhemoglobin Venous 39.7 % 04/2022 12:05 PM [facility] Deoxyhemoglobin (HHB) Venous % 58.2 % 10/14/2022 12:05 PM [facility] Methemoglobin 0.9 0.0 - 2.0 % 10/14/2022 12:05 PM [facility] Carboxyhemoglobin 1.3 0.0 - 2.0 % 2022 12:05 PM [facility] O2 Content Venous 7.9 Interpret within clinical context ml/dL 10/14/2022 12:05 PM [facility] Hemoglobin by COOX 14.1 12.0 - 15.6 g/dL 10/14/2022 12:05 PM [facility] O2 Saturation Venous 41(L) >=70 % 04/2022 12:05 PM [facility] FI O2 Mixed Venous 21.0 % 2022 12:05 PM [facility] Blood BLOOD SPECIMEN / Unknown Venipuncture / Unknown 10/14/2022 11:50 AM CDT 10/14/2022 11:58 AM CDT Narrative [facility] - 10/14/2022 12:05 PM CDT Carboxyhemoglobin Normal Concentration: Non-smokers: 0-2%; Smokers: 0-9%; Toxic: >20% Burt Bates MD LAB - BLOOD GASES ORDERABLES [facility] [address] [place] [address], [facility] [phone] * PT-INR [facility] (10/14/2022 11:40 AM CDT) Only the most recent of4 resultswithin the time period is included. PT 13.4 12.1 - 14.8 Seconds 10/14/2022 12:19 PM [facility] INR 1.0 See Comment 10/14/2022 12:19 PM [facility] Comment:The suggested therap eutic range for standard coumadin (warfarin) therapy is an INR of 2.0-3.0. For high-risk patients (Mechanical Mitral Valve Prosthesis, etc.), the suggested prophylactic therapeutic range is an INR of 2.5-3.5. Blood BLOOD SPECIMEN / Unknown Venipuncture / Unknown 10/14/2022 11:40 AM CDT 10/14/2022 11:54 AM CDT Burt Bates MD LAB - COAGULATION ORDERABLES Performing Organization Address [facility]/ZIP Co de Phone Number [address] [address], [facility] [phone] * LACTIC ACID BLOOD REFLEX TO REPEAT (10/14/2022 11:40 AM CDT) Lactic Acid-Stat 1.7 <=2.0 mmol/L 10/14/2022 12:19 PM CDT [facility] Blood BLOOD SPECIMEN / Unknown Venipuncture / Unknown 10/14/2022 11:40 AM CDT 10/14/2022 11:55 AM CDT Burt Bates MD LAB - CHEMISTRY OR DERABLES Performing Organization Address [facility]/ZIP Co de Phone Number [address] [address], [facility] [phone] * PROCALCITONIN LEVEL (10/14/2022 11:40 AM CDT) Only the most recent of2 resultswithin the time period is included. PROCALCITONIN <0.02 <=0.10 ng/mL 10/14/2022 12:47 PM CDT [facility] Blood BLOOD SPECIMEN / Unknown Venipuncture / Unknown 10/14/2022 11:40 AM CDT 10/14/2022 11:48 AM CDT Narrative [facility] - 10/14/2022 12:47 PM CDT The change in procalcitonin (PCT) concentration over time provides support in decision making on antibiotic discontinuation for suspected or confirmed septic patients. Follow-up samples should be tested once every 1-2 days based upon physician discretion taking into account the patient? s evolution and progress. Consider discontinuation of ??antibiotic therapy ??if the PCT current ??is <= 0.5 ng/mL or if the delta PCT is > 80%. ??Duration of antibiotics should not be determined solely on PCT; established guidelines for the indication should be followed. ? PCT peak: ??Highest observed PCT concentration ? PCT current: Most recent PCT concentration ? Calculate delta PCT using the following equation: ?Delta PCT ??= ?? PCT Peak ? PCT current ??X 100% ? PCT Peak The Change in Procalcitonin Calculator is available at [email or web address] [employer] ?? If clinical picture has not improved and PCT remains high, reevaluate and consider treatment failure or other causes. Burt Bates MD LAB - CHEMISTRY OR DERABLES Performing Organization Address [facility] Co de Phone Number [address] [address], [facility] [phone] * AMMONIA (10/14/2022 11:40 AM CDT) Ammonia 24 <=72 umol/L 10/14/2022 12:18 PM CDT [facility] Blood BLOOD SPECIMEN / Unknown Venipuncture / Unknown 10/14/2022 11:40 AM CDT 10/14/2022 11:54 AM CDT Burt Bates MD LAB - CHEMISTRY OR DERABLES Performing Organization Address [facility] Co de Phone Number [address] [address], [facility] [phone] * [place] ANALYS BRN NPGT PRGRMG 15 MIN (09/11/2022 11:49 AM CDT) Narrative Zak Mathews APRN-GRAIN MIXER - 09/11/2022 11:49 AM CDT Zak Mathews APRN-GRAIN MIXER ? 09/11/2022 11:50 AM (No note.) Karpagam Settu HEALTH INSPECTOR-GRAIN MIXER PROCEDURE/MINOR SURGICAL ORDERABLES * [place] ANALYS BRN NPGT PRGRMG 15 MIN (05/15/2022 11:48 AM MACHINE IRONER) Narrative Zak Mathews APRN-GRAIN MIXER - 05/15/2022 11:48 AM MACHINE IRONER Zak Mathews HEALTH INSPECTOR-GRAIN MIXER ? 05/15/2022 11:49 AM Please see office notes for documentation- Thanks Zak Sahniu HEALTH INSPECTOR-GRAIN MIXER PROCEDURE/MINOR SURGICAL ORDERABLES * XR ABDOMEN KUB (04/22/2022 3:57 PM MACHINE IRONER) Only the most recent of2 resultswithin the time period is included. Anatomical Region Laterality Modality Abdomen Radiographic Ivana ging 04/22/2022 3:55 PM MACHINE IRONER Impressions 04/23/2022 11:24 AM MACHINE IRONER IMPRESSION: Nonobstructive bowel gas pattern. Moderate stool. Report dictated by Luis Manrique MD (vice president underwriting) IMaynor MD have personally reviewed and interpreted this examination/study. > Interpreting Provider: Maynor Richardson MD on 04/23/2022 11:24 AM Narrative 04/23/2022 11:24 AM MACHINE IRONER PROCEDURE: ??XR ABDOMEN KUB, DATE/TIME OF EXAM: ??04/22/2022 3:39 PM, LOCATION [facility] INDICATION: K59.00: Constipation, unspecified constipation type ADDITIONAL CLINICAL INFORMATION: Ordering Provider Reason For Exam: ??stool burden COMPARISON: X-ray KUB dated 06/02/2021 FINDINGS: Surgical clips are seen overlying the right upper quadrant abdomen. Moderate stool load is seen. There is no large stool ball in the rectum. There is no dilatation of small or large bowel. Free air cannot be excluded on this supine exam. A 4 mm calcification projects over the left kidney. Osseous structures are intact. Procedure Note Maynor Richardson MD - 04/23/2022 PROCEDURE: XR ABDOMEN KUB, DATE/TIME OF EXAM: 04/22/2022 3:39 PM, LOCATION [facility] INDICATION: K59.00: Constipation, unspecified constipation type ADDITIONAL CLINICAL INFORMATION: Ordering Provider Reason For Exam: stool burden COMPARISON: X-ray KUB dated 06/02/2021 FINDINGS: Surgical clips are seen overlying the right upper quadrant abdomen. Moderate stool load is seen. There is no large stool ball in the rectum. There is no dilatation of small or large bowel. Free air cannot beexcluded on this supine exam. A 4 mm calcification projects over the left kidney. Osseous structures are intact. IMPRESSION: Nonobstructive bowel gas pattern. Moderate stool. Report dictated by Luis Manrique MD (vice president underwriting) I, Maynor Richardson MD have personally reviewed and interpreted this examination/study. > Interpreting Provider: Maynor Richardson MD on 04/23/2022 11:24 AM Patti Gillette MD DIAGNOSTIC IMAGING ORDERABLES * [place] ANALYS BRN NPGT PRGRMG 15 MIN (02/26/2022 3:35 PM MACHINE IRONER) Narrative Zak Mathews APRN-GRAIN MIXER - 02/26/2022 3:35 PM MACHINE IRONER Zak Mathews HEALTH INSPECTOR-GRAIN MIXER ? 02/26/2022 ??3:36 PM Please see office notes for documentation - Thanks Zak Mathews HEALTH INSPECTOR-GRAIN MIXER PROCEDURE/MINOR SURGICAL ORDERABLES * XR CHEST 2VW (02/26/2022 10:38 AM MACHINE IRONER) Only the most recent of2 resultswithin the time period is included. Anatomical Region Laterality Modality Chest Radiographic Ivana ging 02/26/2022 11:4 3 AM MACHINE IRONER Narrative 02/26/2022 3:59 PM MACHINE IRONER PROCEDURE: ??XR CHEST 2VW, DATE/TIME OF EXAM: ??02/26/2022 10:38 AM, LOCATION [facility] INDICATION: W19.XXXA: Fall, initial encounter COMPARISON: Chest radiograph 07/18/2021. FINDINGS/IMPRESSION: There is a dual lead deep brain stimulator generator within the soft tissues overlying the left chest with the leads coursing through the bilateral neck soft tissues and out of view. The previously seen nodular opacity overlying the right cardiac silhouette is less conspicuous on the current exam. There is no focal consolidation, pleural effusion, or pneumothorax. The cardiomediastinal silhouette is normal. There is diffuse osteopenia. Significant degenerative changes within the left shoulder joint are redemonstrated. Report dictated by Nick Oden MD (vice president underwriting). Camden Giles MD have personally reviewed and interpreted this examination/study. > Interpreting Provider: Camden Rasmussen MD on 02/26/2022 3:59 PM Procedure Note Camden Rasmussen MD - 02/26/2022 PROCEDURE: XR CHEST 2VW, DATE/TIME OF EXAM: 02/26/2022 10:38 AM,LOCATION [facility] INDICATION: W19.XXXA: Fall, initial encounter COMPARISON: Chest radiograph 07/18/2021. FINDINGS/IMPRESSION: There is a dual lead deep brain stimulator generator within the soft tissues overlying the left chest with the leads coursing through the bilateral neck soft tissues and out of view. The previously seen nodular opacity overlying the right cardiacsilhouette is less conspicuous on the current exam. There is no focalconsolidation, pleural effusion, or pneumothorax. The cardiomediastinal silhouette is normal. There is diffuse osteopenia. Significant degenerative changes within the left shoulder joint are redemonstrated. Report dictated by Nick Oden MD (vice president underwriting). Camden Giles MD have personally reviewed and interpreted this examination/study. > Interpreting Provider: Camden Rasmussen MD on 02/26/2022 3:59 PM Jai Caballero MD DIAGNOSTIC IMAGING ORDERABLES * XR SKULL 3VW OR LESS (02/26/2022 10:38 AM MACHINE IRONER) Only the most recent of4 resultswithin the time period is included. Anatomical Region Laterality Modality Head Radiographic Ivana ging 02/26/2022 1:37 PM MACHINE IRONER Narrative 02/26/2022 3:59 PM MACHINE IRONER PROCEDURE: ??XR SKULL 3VW OR LESS, DATE/TIME OF EXAM: ??02/26/2022 10:38 AM, LOCATION ??[facility] INDICATION: W19.XXXA: Fall, initial encounter COMPARISON: Skull radiograph 07/18/2021. FINDINGS/IMPRESSION: There is redemonstration of bilateral frontoparietal approach deep brain stimulator leads. The leads extend down the soft tissues of the scalp into the lateral neck bilaterally and out of view. There is no lead discontinuity seen. There is interval resolution of postsurgical pneumocephalus and removal of scalp ellie. Multiple dental restorations are reidentified. Report dictated by Nick Oden MD (vice president underwriting). Camden Giles MD have personally reviewed and interpreted this examination/study. > Interpreting Provider: Camden Rasmussen MD on 02/26/2022 3:59 PM Procedure Note Camden Rasmussen MD - 02/26/2022 PROCEDURE: XR SKULL 3VW OR LESS, DATE/TIME OF EXAM: 02/26/2022 10:38AM, LOCATION [facility] INDICATION: W19.XXXA: Fall, initial encounter COMPARISON: Skull radiograph 07/18/2021. FINDINGS/IMPRESSION: There is redemonstration of bilateral frontoparietal approach deep brain stimulator leads. The leads extend down the soft tissues of the scalpinto the lateral neck bilaterally and out of view. There is no lead discontinuity seen. There is interval resolution of postsurgical pneumocephalus and removal of scalp ellie. Multiple dentalrestorations are reidentified. Report dictated by Nick Oden MD (vice president underwriting). Camden Giles MD have personally reviewed and interpreted this examination/study. > Interpreting Provider: Camden Rasmussen MD on 02/26/2022 3:59 PM Jai Caballero MD DIAGNOSTIC IMAGING ORDERABLES * OH ANALYS BRN NPGT PRGRMG 15 MIN (12/18/2021 12:12 PM CDT) Narrative Zak Mathews APRN-GRAIN MIXER - 12/18/2021 12:12 PM CDT Zak Mathews APRN-GRAIN MIXER ? 12/18/2021 12:15 PM Please see office notes for documentation -Thanks Zak Mathews HEALTH INSPECTOR-GRAIN MIXER PROCEDURE/MINOR SURGICAL ORDERABLES * OH ANALYS BRN NPGT PRGRMG ADDL 15, [place] ANALYS BRN NPGT PRGRMG 15 MIN (11/27/2021 1:40 PM CDT) Narrative Chandler Kohli MD - 11/27/2021 1:40 PM CDT Chandler Kohli MD ? 11/27/2021 ??1:40 PM See procedure note for documentation. I spent 30 minutes in interrogating the battery, ??documenting the current parameters of amplitude, pulse width, frequency, impedance and current outflow and in reprogramming the deep brain stimulator as described in the clinical note ??with improvement in her symptoms of rigidity, tremor and bradykinesia. Chandler Kohli MD PROCEDURE/MINOR SURG ICAL ORDERABLES * SARS-COV-2 (COVID-19) RAPID (10/05/2021 5:52 PM CDT) COVID-19 PCR Not detected Not detected 10/06/19 6:44 PM CDT [facility] Microbiology SPECIMEN FROM NASOPHARYNGEAL STRUCTURE / Unknown Collection / Unknown 10/05/2021 5:52 PM CDT 10/05/2021 5:56 PM CDT Narrative [facility] - 10/05/2021 6:44 PM CDT The Cepheid Xpert Xpress SARS-COV-2 has been authorized by the Food and Drug Administration (FDA) under an Emergency Use Authorization (EUA). This test has been validated in accordance with the FDA's guidance document Policy for Diagnostic Testing in Laboratories Certified to perform High Complexity Testing under CLIA prior to Emergency Use Authorization for Coronavirus Disease-2019 during the Public Health Emergency issued on May 13, 2019. FDA independent review of this validation is pending. This test is only authorized for the duration of the time the declaration that circumstances exist justifying the authorization of emergency use of in vitro diagnostic tests for detection of SARS-COV-2 virus and/or diagnosis of COVID-19 infection under 564(b) (1) of the Act. 21 U.S.C. 360bbb-3 (b) (1), unless the authorization is terminated or revoked sooner. Fact Sheets for this EUA assay are available upon request. Brenda Martínez HEALTH INSPECTOR-GRAIN MIXER LAB - MICROB IOLOGY ORDERABLES [address] [address], [facility] [phone] * LIPASE BLOOD (10/05/2021 5:49 PM CDT) Only the most recent of2 resultswithin the time period is included. Lipase 25 8 - 78 U/L 10/05/2021 6:37 PM CDT [facility] Blood BLOOD SPECIMEN / Unknown Venipuncture / Unknown 10/05/2021 5:49 PM CDT 10/05/2021 6:10 PM CDT Brenda Janessabenito Martínez HEALTH INSPECTOR-GRAIN MIXER LAB - CHEMIS TRY ORDERABLES [address] [address], [facility] [phone] * OH ANALYS BRN NPGT PRGRMG ADDL 15, OH ANALYS BRN NPGT PRGRMG 15 MIN (09/16/2021 1:25 PM CDT) Narrative Chandler Kohli MD - 09/16/2021 1:25 PM CDT Chandler Kohli MD ? 09/16/2021 ??1:26 PM See procedure note for documentation. I spent 30 minutes in interrogating the battery, ??documenting the current parameters of amplitude, pulse width, frequency, impedance and current outflow and in reprogramming the deep brain stimulator as described in the clinical note ??with improvement in her symptoms of rigidity, tremor and bradykinesia. Chandler Kohli MD PROCEDURE/MINOR SURG ICAL ORDERABLES * OH ANALYS BRN NPGT PRGRMG ADDL 15, OH ANALYS BRN NPGT PRGRMG 15 MIN (08/20/2021 12:31 PM CDT) Narrative Chandler Kohli MD - 08/20/2021 12:31 PM CDT Chandler Kohli MD ? 08/20/2021 12:32 PM See procedure note for documentation. I spent 30 minutes in interrogating the battery, ??documenting the current parameters of amplitude, pulse width, frequency, impedance and current outflow and in reprogramming the deep brain stimulator as described in the clinical note ??with improvement in her symptoms of rigidity, tremor and bradykinesia. Chandler Kohli MD PROCEDURE/MINOR SURG ICAL ORDERABLES * OH ANALYS BRN NPGT PRGRMG ADDL 15, OH ANALYS BRN NPGT PRGRMG ADDL 15, OH ANALYS BRN NPGT PRGRMG ADDL 15, OH ANALYS BRN NPGT PRGRMG 15 MIN (08/12/2021 5:23 PM CDT) Narrative Chandler Kohli MD - 08/12/2021 5:23 PM CDT Chandler Kohli MD ? 08/12/2021 ??5:24 PM See procedure note for documentation. I spent 60 minutes in interrogating the battery, ??documenting the current parameters of amplitude, pulse width, frequency, impedance and current outflow and in reprogramming the deep brain stimulator as described in the clinical note ??with improvement in her symptoms of rigidity, tremor and bradykinesia. Chandler Kohli MD PROCEDURE/MINOR SURG ICAL ORDERABLES * TROPONIN I (08/04/2021 10:32 AM CDT) Pathologist [facility] Troponin I <0.010 <0.032 ng/mL 08/04/2021 11:17 AM CDT [facility] Blood BLOOD SPECIMEN / Unknown Venipuncture / Unknown 08/04/2021 10:32 AM CDT 08/04/2021 10:41 AM CDT Dianne Borrego MD LAB - CHEMISTRY RINKU TAMAYO [facility] Organization Address City/State/ZIP Co de Phone Number [facility] [address] [address], [facility] [phone] * TYPE + SCREEN PANEL (08/04/2021 10:32 AM CDT) Only the most recent of3 resultswithin the time period is included. Antibody Screen NEG 11:45 AM CDT [facility] ABO Rh O POS 08/04/2021 11:45 AM CDT [facility] Blood Bank BLOOD SPECIMEN / Unknown Venipuncture / Unknown 08/04/2021 10:32 AM CDT 08/04/2021 10:47 AM CDT Dianne Borrego MD LAB - BLOOD BANK ORD ERABLES Performing Organization Address City/[facility] Co de Phone Number [facility] [address] [place] [address], [facility] [phone] * EKG 12-LEAD (08/04/2021 10:24 AM CDT) Only the most recent of5 resultswithin the time period is included. Ventricular Rate 65 BPM [facility] Atrial Rate 65 BPM [facility] P-R Interval 146 ms [facility] QRS Duration ms 120 ms [facility] Q-T Interval ms 414 ms [facility] QTC Calculation (Bezet) 430 ms [facility] Calculated P [place] 69 degrees [facility] Calculated R [place] 10 degrees [facility] Calculated T [place] -89 degrees [facility] Interpretation EKG NORMAL SINUS RHYTHM LEFT VENTRICULAR HYPERTROPHY WITH QRS WIDENING AND REPOLARIZATION ABNORMALITY ( R in aVL , Parker product ) ABNORMAL ECG WHEN COMPARED WITH ECG OF 10-JUL-2021 11:57, PREMATURE VENTRICULAR COMPLEXES ARE NO LONGER PRESENT Confirmed by Sundar Menard ([id number]) on 08/06/2021 7:28:10 AM [facility] 08/04/2021 10:2 4 AM CDT 08/06/2021 7:28 AM CDT Dianne Borrego MD ECG ORDERABLES Performing Organization Address [facility] Co de Phone Number [facility] * GLUCOSE - POINT OF CARE (08/04/2021 10:24 AM CDT) Pathologist [facility] Glucose WB/POC 88 70 - 115 mg/dL 08/04/2021 10:30 AM CDT [facility] Specimen Type Cap Fingerstick 2021 10:30 AM CDT [facility] Blood BLOOD SPECIMEN / Unknown 08/04/2021 10:24 AM CDT 08/04/2021 10:30 AM CDT Narrative Authorizing Provider Result Doris Borrego MD LAB - POINT OF CARE ORDERABLES Performing Organization Address City/[facility]/ZIP Co de Phone Number [address] [address], [facility] [phone] * XR CHEST 1VW (07/18/2021 3:48 PM CDT) Anatomical Region Laterality Modality Chest Radiographic Ivana ging 07/18/2021 3:44 PM CDT Impressions 07/18/2021 4:09 PM CDT FINDINGS/IMPRESSION: There is a deep brain stimulator generator overlying the left hemithorax with 2 leads. There is subcutaneous emphysema in the right chest wall likely postsurgical. Unchanged nodular opacity overlying the right heart which could represent a calcified node versus nodule. There are curvilinear opacities in the right lower lung zone in the left lower lung zone which could represent atelectasis. There is no other focal consolidation, pleural effusion, or pneumothorax. The cardio missile silhouette is normal. The bones are diffusely osteopenic. 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 Report dictated by Dom Agarwal MD (vice president underwriting). I, Dr. MARKOS GASCA MD, [facility] have personally reviewed and interpreted this examination/study. This report was electronically signed by MARKOS GASCA MD, CR ??on 07/18/2021 4:09 PM . Narrative 07/18/2021 4:09 PM CDT EXAMINATION: XR CHEST 1VW, 07/18/2021 3:27 PM HISTORY: G20: Parkinson's disease COMPARISON: 05/16/2021 Procedure Note Markos Gasca MD - 07/18/2021 EXAMINATION: XR CHEST 1VW, 07/18/2021 3:27 PM HISTORY: G20: Parkinson's disease COMPARISON: 05/16/2021 FINDINGS/IMPRESSION: There is a deep brain stimulator generator overlying the left hemithorax with 2 leads. There is subcutaneous emphysema in the right chest wall likely postsurgical. Unchanged nodular opacity overlying the right heart which couldrepresent a calcified node versus nodule. There are curvilinear opacities in the right lower lung zone in the left lower lung zone which could represent atelectasis. There is no other focal consolidation, pleural effusion, or pneumothorax. The cardio missile silhouette is normal. The bones are diffusely osteopenic. There are severe osteoarthritic changes of theleft shoulder joint. Report dictated by Dom Agarwal MD (vice president underwriting). I, Dr. MARKOS GASCA MD, [facility] have personally reviewedand interpreted this examination/study. This report was electronically signed by MARKOS GASCA MD, [facility] on 07/18/2021 4:09 PM . Jai Caballero MD DIAGNOSTIC IMAGING ORDERABLES * ETT LINE PERFORMABLE (07/18/2021 1:35 PM CDT) Narrative Venancio Hodgson Anes Asst - 07/18/2021 1:35 PM CDT Venancio Hodgson Anes Asst ? 07/18/2021 ??1:36 PM Endotracheal Tube Placement: ? Patient Location: OR. Intubation Event Date/Time: ??07/18/2021 12:13 PM Procedure: intubation ([id number]). Procedure Section: ?? Sedation: under general anesthesia. Indications for Airway Management: ??anesthesia Procedure pretreatments used? ??No Induction: standard IV Patient Position: ??sniffing and supine Mask Ventilation: easy. Blade Type: David Blade Size: 3 Laryngoscopy View: grade 1 (full cords) Tube: endotracheal tube Placement: oral Tube type: cuff - inflated Tube Size (MM): 6 Depth of Insertion (CM): 20 Measured From: lips Cuff Inflated With: air Number of Attempts: 1. Placement Verified By: direct visualization, bilateral breath sounds, chest auscultation and CO2 monitor Tube secured with: ??adhesive tape and ETT walker. Dentition unchanged? ??Yes Difficult Airway? ??No. Procedure Start Time: 07/18/2021 12:13 PM. Procedure End Time: 07/18/2021 12:14 PM. Procedure Total Time: 1 ??minutes. Staff Section ? Anesthesia Provider: Venancio Hodgson Anes Asst, Performed the procedure Gustavo Russo II, DO GENERAL ANESTH ESIA ORDERABLES * FL OARM SURGERY (07/18/2021 12:30 PM CDT) Only the most recent of2 resultswithin the time period is included. Narrative [facility] - 07/18/2021 3:26 PM CDT Fluoroscopy was used for this exam in the OR. Please see the Operative report. Jai Caballero MD FLUOROSCOPY ORDERAB LES [facility] * (ABNORMAL) URINALYSIS W/MICROSCOPIC REFLEX TO CULTURE (07/10/2021 1:13 PM CDT) Color UA Yellow Straw, Yellow 07/10/2021 1:53 PM CDT [facility] Clarity UA Clear Clear 07/10/2021 1:53 PM T [facility] Specific [place] UA 1.008 1.005 - 1.030 07/10/2021 1:53 PM T [facility] pH UA 7.0 5.0 - 8.0 pH 07/10/2021 1:53 PM T [facility] Protein UA Negative Negative 07/10/2021 1:53 PM T [facility] Glucose UA Negative Negative 07/10/2021 1:53 PM T [facility] Ketone UA Trace(A) Negative 07/10/2021 1:53 PM T [facility] Bilirubin UA Negative Negative 07/10/2021 1:53 PM T [facility] Blood UA Negative Negative 07/10/2021 1:53 PM [facility] Nitrite UA Negative Negative 07/10/2021 1:53 PM T [facility] Leukocyte Esterase Trace(A) Negative 07/10/2021 1:53 PM CDT [facility] Urobilinogen UA Negative Negative mg/dL 07/10/2021 1:53 PM T [facility] RBC UA 0-2 None Seen, 0-2, 3-5 /HPF 07/10/2021 1:53 PM T [facility] WBC UA 0-5 None Seen, 0-5 /HPF 07/10/2021 1:53 PM T [facility] Squamous Epithelial Cells UA 0-2 None Seen, 0-2, 3-5 /HPF 07/10/2021 1:53 PM CDT [facility] Mucus UA 1+ /LPF 07/10/2021 1:53 PM CDT [facility] Hyaline Casts UA 0-2 None Seen, 0-2 /LPF 07/10/2021 1:53 PM CDT [facility] Urine URINE SPECIMEN OBTAINED BY CLEAN CATCH PROCEDURE / Unknown Collection / Unknown 07/10/2021 1:13 PM CDT 07/10/2021 1:46 PM CDT Narrative [facility] - 07/10/2021 1:53 PM CDT Culture Not Indicated Jai Caballero MD LAB - URINALYSIS OR DERABLES Performing Organization Address City/[facility]/ZIP Co de Phone Number [address] [address], [place] [phone] * PTT [facility] (07/10/2021 1:04 PM CDT) Only the most recent of2 resultswithin the time period is included. APTT 29.3 23.0 - 38.4 Seconds 07/10/2021 2:26 PM CDT [facility] Comment:Suggested therapeuti c range for full dose I.V. unfractionated heparin therapy for venous thromboembolism is 71 to 109 seconds. Blood BLOOD SPECIMEN / Unknown Lab Venipuncture / Unknown 07/10/2021 1:04 PM CDT 07/10/2021 1:46 PM CDT Jai Caballero MD LAB - COAGULATION O RDERABLES [address] [address], [place] [phone] * (ABNORMAL) BASIC METABOLIC PANEL (CALCIUM TOTAL) (07/10/2021 1:04 PM CDT) Only the most recent of5 resultswithin the time period is included. BUN 10 7 - 26 mg/dL 07/10/2021 2:24 PM CDT [facility] Creatinine 0.97(H) 0.56 - 0.96 mg/dL 07/10/2021 2:24 PM [facility] Sodium 143 136 - 145 mmol/L 07/10/2021 2:24 PM [facility] Potassium 3.1(L) 3.5 - 4.5 mmol/L 07/10/2021 2:24 PM [facility] Chloride 102 98 - 107 mmol/L 07/10/2021 2:24 PM [facility] CO2 29 22 - 29 mmol/L 07/10/2021 2:24 PM [facility] Glucose 70 70 - 115 mg/dL 07/10/2021 2:24 PM [facility] Calcium 9.5 8.4 - 10.2 mg/dL 07/10/2021 2:24 PM [facility] Anion Gap 15 8 - 18 07/10/2021 2:24 PM [facility] BUN/Creatinine Ratio 10 7 - 23 07/10/2021 2:24 PM [facility] Osmolality Calculated 293 270 - 300 mOsm/kg 07/10/2021 2:24 PM [facility] eGFR by CKD-EPI 61(L) >=90 mL/min/1.7 3 m2 07/10/2021 2:24 PM [facility] Blood BLOOD SPECIMEN / Unknown Lab Venipuncture / Unknown 07/10/2021 1:04 PM CDT 07/10/2021 1:52 PM CDT Jai Caballero MD LAB - CHEMISTRY ORD ERABLES [facility] [address] [place] [address], [facility] [phone] * ENDOSCOPY, COLON, SCREENING (07/07/2021 2:24 PM CDT) Report Endoscopy POC Endoscopy Department Report _ Patient Name: Karyna Edmonds ?Procedure Date: 07/07/2021 2:24 PM ? Date of : 1945 Classification: Outpatient ?Gender: Female Ethnicity: Not or ? Race: White _ Providers: ?Kali Damian MD Referring MD: ? Fina Prather (Referring MD) Procedure: ?Colonoscopy Indications: ?Constipation Medications: ?Monitored Anesthesia Care Description of Procedure: Pre-Anesthesia Assessment: ?- Prior to the procedure, a History and Physical ?was performed, and patient medications and ?allergies were reviewed. The patient's tolerance of ?previous anesthesia was also reviewed. The risks ?and benefits of the procedure and the sedation ?options and risks were discussed with the patient. ?All questions were answered, and informed consent ?was obtained. Prior Anticoagulants: The patient has ?taken no previous anticoagulant or antiplatelet ?agents. ASA Grade Assessment: III - A patient with ?severe systemic disease. After reviewing the risks ?and benefits, the patient was deemed in ?satisfactory condition to undergo the procedure. ?- Prior Aspirin/ NSAID therapy: The patient has ?taken no previous aspirin or NSAID medications. ?After I obtained informed consent, the scope was ?passed under direct vision. Throughout the ?procedure, the patient's blood pressure, pulse, and ?oxygen saturations were monitored continuously. The ?[id number] was introduced through the anus and ?advanced to the cecum, identified by appendiceal ?orifice and ileocecal valve. The patient tolerated ?the procedure well. The quality of the bowel ?preparation was fair. The ileocecal valve, ?appendiceal orifice, and rectum were photographed. ? Findings: ? The perianal and digital rectal examinations were normal. ? A few small-mouthed diverticula were found in the sigmoid colon. ? The entire examined colon appeared normal on direct and retroflexion ? views. ? Estimated Blood Loss: ? Estimated blood loss: none. Complications: ?No immediate complications. Impression: ? - Preparation of the colon was fair limiting ?sensitivity for small polyps. ?- Colon was tortuous ?- Diverticulosis in the sigmoid colon. ?- The entire examined colon is normal on direct and ?retroflexion views. ?- No specimens collected. Recommendation: ? - Patient has a contact number available for ?emergencies. The signs and symptoms of potential ?delayed complications were discussed with the ?patient. Return to normal activities tomorrow. ?Written discharge instructions were provided to the ?patient. ?- Resume previous diet. ?- Continue present medications. ?- No repeat colonoscopy due to age and medical ?comorbidity per GI team to review. ?- Return to GI clinic as previously scheduled. ? Attending Participation: ??I personally performed the entire procedure. ? Procedure Code(s): ? --- Professional --- ? 00006, Colonoscopy, flexible; diagnostic, including collection of ? specimen(s) by brushing or washing, when performed (separate procedure) Diagnosis Code(s): ?--- Professional --- ?K59.00, Constipation, unspecified ?K57.30, Diverticulosis of large intestine without ?perforation or abscess without bleeding CPT copyright 2019 [employer]. All rights reserved. The codes documented in this report are preliminary and upon supervisor component assembler review may be revised to meet current compliance requirements. Kali Damian MD 07/07/2021 3:20:05 PM This report has been signed electronically. Note Initiated On: 07/07/2021 2:24 PM Number of Addenda: 0 ? [facility] ? [address] [place] [address] [facility] 07/07/2021 2:24 PM CDT Kali Damian MD GI PROCEDURE ORDERAB LES [facility] * EGD (07/07/2021 2:22 PM CDT) Report Endoscopy POC Endoscopy Department Report _ Patient Name: Karyna Edmonds ?Procedure Date: 07/07/2021 2:22 PM ? Date of : 1945 Classification: Outpatient ?Gender: Female Ethnicity: Not or ? Race: White _ Providers: ?Kali Damian MD Referring MD: ? Fina Prather (Referring ) Procedure: ?Upper GI endoscopy Indications: ?Epigastric abdominal pain Medications: ?Monitored Anesthesia Care Description of Procedure: Pre-Anesthesia Assessment: ?- Prior to the procedure, a History and Physical ?was performed, and patient medications and ?allergies were reviewed. The patient's tolerance of ?previous anesthesia was also reviewed. The risks ?and benefits of the procedure and the sedation ?options and risks were discussed with the patient. ?All questions were answered, and informed consent ?was obtained. Prior Anticoagulants: The patient has ?taken no previous anticoagulant or antiplatelet ?agents. ASA Grade Assessment: III - A patient with ?severe systemic disease. After reviewing the risks ?and benefits, the patient was deemed in ?satisfactory condition to undergo the procedure. ?- Prior Aspirin/ NSAID therapy: The patient has ?taken no previous aspirin or NSAID medications. ?After obtaining informed consent, the endoscope was ?passed under direct vision. Throughout the ?procedure, the patient's blood pressure, pulse, and ?oxygen saturations were monitored continuously. The ?[id number]-[id number] was introduced through the mouth, and ?advanced to the second part of duodenum. The upper ?GI endoscopy was accomplished without difficulty. ?The patient tolerated the procedure well. ? Findings: ? The Z-line was regular and was found 38 cm from the incisors. ? The examined esophagus was normal. ? The entire examined stomach was normal. ? The cardia and gastric fundus were normal on retroflexion. ? The examined duodenum was normal. ? Estimated Blood Loss: ? Estimated blood loss: none. Complications: ?No immediate complications. Impression: ? - Z-line regular, 38 cm from the incisors. ?- Normal esophagus. ?- Normal stomach. ?- Normal examined duodenum. ?- No specimens collected. Recommendation: ? - Patient has a contact number available for ?emergencies. The signs and symptoms of potential ?delayed complications were discussed with the ?patient. Return to normal activities tomorrow. ?Written discharge instructions were provided to the ?patient. ?- Resume previous diet. ?- Continue present medications. ?- No repeat upper endoscopy for surveillance of ?Dwyer's esophagus due to today's normal exam. ?- Return to GI office as previously scheduled. ? Attending Participation: ??I personally performed the entire procedure. ? Procedure Code(s): ? --- Professional --- ? 06258, Esophagogastroduo denoscopy, flexible, transoral; diagnostic, ? including collection of specimen(s) by brushing or washing, when ? performed (separate procedure) Diagnosis Code(s): ?--- Professional --- ?R10.13, Epigastric pain CPT copyright 2019 [employer]. All rights reserved. The codes documented in this report are preliminary and upon supervisor component assembler review may be revised to meet current compliance requirements. _ Kali Damian MD 07/07/2021 2:42:39 PM This report has been signed electronically. Note Initiated On: 07/07/2021 2:22 PM Number of Addenda: 0 ? [facility] [facility] ? [address] [place], [place] [id number] [place] [address] PROVATION 07/07/2021 2:22 PM CDT Kali Damian MD GI PROCEDURE ORDERAB LES [facility] PROVATION * [place] ANALYS BRN NPGT PRGRMG 15 MIN (07/02/2021 10:56 AM CDT) Narrative Chandler Kohli MD - 07/02/2021 10:56 AM CDT Chandler Kohli MD ? 07/02/2021 10:57 AM See procedure note for documentation. I spent 15 minutes in interrogating the battery, ??documenting the current parameters of amplitude, pulse width, frequency, impedance and current outflow. DBS parameters found to be stable and no changes were made. Chandler Kohli MD PROCEDURE/MINOR SURG ICAL ORDERABLES * OH ANALYS BRN NPGT PRGRMG ADDL 15, [place] ANALYS BRN NPGT PRGRMG 15 MIN (06/04/2021 1:57 PM CDT) Narrative Zak Mathews APRN-CNP - 06/04/2021 1:57 PM CDT Zak Mathews APRN-CNP ? 06/04/2021 ??1:58 PM Please see office notes for documentation- Thanks Zak Mathews HEALTH INSPECTOR-GRAIN MIXER PROCEDURE/MINOR SURGICAL ORDERABLES * NM GASTRIC EMPTYING (06/02/2021 12:51 PM CDT) Anatomical Region Laterality Modality Abdomen Nuclear Medicine 06/02/2021 12:5 7 PM CDT Impressions 06/03/2021 9:03 AM CDT IMPRESSION: This is abnormal study with grade 4 gastroparesis based on 53% retention at 4 hours after ingestion of meal. Dictated by Shun Victoria MD (Nuclear Medicine resident). This report was approved ??by Shun Victoria ?? on 06/02/2021 5:28 PM . I, Dr. NORA GIFFORD M.D. have personally reviewed and interpreted this examination/study. This report was electronically signed by NORA GIFFORD M.D. ??on 06/03/2021 9:03 AM . Narrative 06/03/2021 9:03 AM CDT STUDY: Solid Gastric Emptying Study AGENT: 0.503 mCi of Tc- 99m- sulfur colloid mixed in scrambled egg. HISTORY: 75 year old female with pmhx of orthostatic hypotension, RLS,parkinson's disease s/p left deep brain stimulator, left nephrolithiasis, constipation and upper abdomen pain. Patient's BMI 27.11 kg/m2. TECHNIQUE: The examination was performed after the ingestion of a standardized meal (scrambled egg substitute (120 g Egg Beater, 60 kcal, equivalent to the volume of 2 large eggs), 1.5 slices of bread and water (120 ml).The meal has a caloric value of ??255 kcal: 72% carbohydrate,24% protein, 2% fat and 2% fiber. The meal is labeled with 0.5 mCi of [id number]-ekvjhms sulfur colloid. COMPARISON: No similar prior study is available for comparison. FINDINGS: After ingestion of solid meal, sequential images were obtained up to 4 hours. Immediate,1 hour, 2 hour and 4 hours after ingestion. The percent retention in the stomach is as follows: Immediate: 100% 1 hour: 91% ??(Normal range: 37 - 90% ). 2 hour: 88% ??(Normal range: 30 - 60%). 4 hour: 53% ??(Normal range: ??0 - 10%). T1/2: 308 minutes (Upper limits 130 minutes). Severity of gastroparesis is as follows: (Grade 1 (mild): 11-20%, Grade 2 (moderate): 21 - 35%, Grade 3 (severe): 36-50%, Grade 4 (very severe): > 50%) Procedure Note Nora Gifford MD - 06/03/2021 STUDY: Solid Gastric Emptying Study AGENT: 0.503 mCi of Tc- 99m- sulfur colloid mixed in scrambled egg. HISTORY: 75 year old female with pmhx of orthostatic hypotension, RLS,parkinson's disease s/p left deep brain stimulator, left nephrolithiasis, constipation and upper abdomen pain. Patient's BMI27.11 kg/m2. TECHNIQUE: The examination was performed after the ingestion of a standardized meal (scrambled egg substitute (120 g Egg Beater, 60 kcal, equivalent to the volume of 2 large eggs), 1.5 slices of bread and water (120 ml).The meal has a caloric value of 255 kcal: 72% carbohydrate,24% protein, 2% fat and 2% fiber. The meal is labeled with 0.5 mCi of [id number] sulfur colloid. COMPARISON: No similar prior study is available for comparison. FINDINGS: After ingestion of solid meal, sequential images were obtained up to 4 hours. Immediate,1 hour, 2 hour and 4 hours after ingestion. The percent retention in the stomach is as follows: Immediate: 100% 1 hour: 91% (Normal range: 37 - 90% ). 2 hour: 88% (Normal range: 30 - 60%). 4 hour: 53% (Normal range: 0 - 10%). T1/2: 308 minutes (Upper limits 130 minutes). Severity of gastroparesis is as follows: (Grade 1 (mild): 11-20%, Grade 2 (moderate): 21 - 35%, Grade 3 (severe): 36-50%, Grade 4 (very severe): > 50%) IMPRESSION: This is abnormal study with grade 4 gastroparesis based on 53% retention at 4 hours after ingestion of meal. Dictated by Shun Victoria MD (Nuclear Medicine resident). This report was approved by Shun Victoria on 06/02/2021 5:28 PM . I, Dr. NORA GIFFORD M.D. have personally reviewed and interpreted this examination/study. This report was electronically signed by NORA GIFFORD M.D. on06/03/2021 9:03 AM . Deonna NUNEZ ORDERABLES * (ABNORMAL) CBC W/O DIFFERENTIAL (05/18/2021 4:46 AM [facility]) Only the most recent of2 resultswithin the time period is included. WBC 3.9 3.5 - 10.5 10? 3 /uL 05/18/2021 6:00 AM [facility] RBC 3.76(L) 3.80 - 5.20 10? 6 /uL 05/18/2021 6:00 AM [facility] Hemoglobin 12.3 12.0 - 15.6 g/dL 05/18/2021 6:00 AM [facility] Hematocrit 36.1 35.0 - 45.0 % 05/18/2021 6:00 AM [facility] MCV 96.0 80.7 - 98.3 fL 05/18/2021 6:00 AM [facility] MCH 32.7 26.7 - 34.0 pg 05/18/2021 6:00 AM [facility] MCHC 34.1 30.8 - 35.9 g/dL 05/18/2021 6:00 AM [facility] Platelet Count 186 150 - 400 10? 3 /uL 05/18/2021 6:00 AM [facility] RDW-SD 43.6 36.0 - 50.0 fL 05/18/2021 6:00 AM [facility] RDW-CV 12.4 11.2 - 14.8 % 05/18/2021 6:00 AM [facility] MPV 10.1 9.4 - 12.9 fL 05/18/2021 6:00 AM [facility] nRBC Absolute 0.00 0 10? 3 /uL 05/18/2021 6:00 AM [facility] nRBC Auto 0.0 0 /100 WBC 05/18/2021 6:00 AM [facility] Blood BLOOD SPECIMEN / Unknown Lab Venipuncture / Unknown 05/18/2021 4:46 AM MACHINE IRONER 05/18/2021 5:37 AM MACHINE IRONER Jesus Glass MD LAB - HEMATOLOGY OR DERABLES [address] [address], [facility] [phone] * PHOSPHORUS BLOOD (05/18/2021 4:46 AM MACHINE IRONER) Only the most recent of2 resultswithin the time period is included. Phosphorus 3.4 2.9 - 5.1 mg/dL 05/18/2021 6:04 AM [facility] Blood BLOOD SPECIMEN / Unknown Lab Venipuncture / Unknown 05/18/2021 4:46 AM MACHINE IRONER 05/18/2021 5:37 AM MACHINE IRONER Jesus Glass MD LAB - CHEMISTRY ORD ERABLES [address] [address], [facility] [phone] * MAGNESIUM BLOOD (05/18/2021 4:46 AM [facility]) Only the most recent of2 resultswithin the time period is included. Magnesium 1.9 1.6 - 2.6 mg/dL 05/18/2021 6:04 AM [facility] Blood BLOOD SPECIMEN / Unknown Lab Venipuncture / Unknown 05/18/2021 4:46 AM [facility] 05/18/2021 5:37 AM [facility] Jessu Glass MD LAB - CHEMISTRY ORD ERABLES [facility] [address] [place] [address], [facility] [phone] * URINE DRUG SCREEN IMMUNOASSAY (05/17/2021 12:53 AM [facility]) Pathologist [facility] Amphetamines Screen Urine Negative Negative: < 1000 ng/mL 05/17/2021 1:21 AM [facility] Barbiturates Screen Urine Negative Negative: < 200 ng/mL 05/17/2021 1:21 AM [facility] Benzodiazepine Screen Urine Negative Negative: < 200 ng/mL 05/17/2021 1:21 AM [facility] Opiates Urine Negative Negative: < 300 ng/mL 05/17/2021 1:21 AM [facility] Cocaine Metabolites Urine Negative Negative: < 300 ng/mL 05/17/2021 1:21 AM [facility] Phencyclidine Screen Urine Negative Negative: < 25 ng/ml 05/17/2021 1:21 AM [facility] Cannabinoids Screen Urine Negative Negative: <50 ng/mL 05/17/2021 1:21 AM [facility] Methadone Screen Urine Negative Negative: < 300 ng/mL 05/17/2021 1:21 AM [facility] Fentanyl Screen Urine Negative Negative: <1.0 ng/mL 05/17/2021 1:21 AM [facility] Urine URINE / Unknown Collection / Unknown 05/17/2021 12:53 AM [facility] 05/17/2021 1:02 AM [facility] Narrative [facility] - 05/17/2021 1:21 AM MACHINE IRONER The Urine Toxicology Screening Panel does not screen for Propoxyphene, Meprobamate, Carisoprodol, Trazodone, zvqb-xva-wzhtnfn medications and/or volatiles (Acetone, Isopropanol, Methanol or Ethylene Glycol). Ethanol, Salicylate, Acetaminophen, Tricyclic Antidepressants and several therapeutic drugs may be individually assayed in serum or plasma specimen. Toxicology testing by the [facility] is an aid to medical diagnosis and treatment of patients. No documented chain of custody was maintained. Results are intended to be used for clinical purposes only. ? Jesus Glass MD LAB - URINE STATISTICAL MACHINE SERVICER RY ORDERABLES Performing Organization Address [facility] Co de Phone Number [facility] [address] [place] [address], [place] [phone] * CULTURE URINE (05/17/2021 12:52 AM MACHINE IRONER) Culture Urine <10,000 CFU/mL urogenital yessi BRAXTON 05/18/2021 8:26 AM MACHINE IRONER [facility] MICRO[facility] Urine URINE SPECIMEN OBTAINED BY CLEAN CATCH PROCEDURE / Unknown Collection / Unknown 05/17/2021 12:52 AM MACHINE IRONER 05/17/2021 1:02 AM MACHINE IRONER Jesus Glass MD LAB - MICROBIOLOGY ORDERABLES Performing Organization Address City/[facility] Co de Phone Number [facility]CRO[facility] [address] [place] [address], [facility] [phone] * SARS-COV-2 (COVID-19)+INFLU A+B PCR RAPID (05/17/2021 12:49 AM MACHINE IRONER) COVID-19 PCR Not detected Not detected 05/18/19 1:29 AM [facility] Influenza A Rapid WILLIAM Not Detected Not Detected 05/17/2021 1:29 AM [facility] Influenza B WILLIAM Rapid Not Detected Not Detected 05/17/2021 1:29 AM [facility] Microbiology SPECIMEN FROM NASOPHARYNGEAL STRUCTURE / Unknown Collection / Unknown 05/17/2021 12:49 AM MACHINE IRONER 05/17/2021 1:02 AM MACHINE IRONER Narrative [facility] - 05/17/2021 1:29 AM MACHINE IRONER Influenza assay performed by Nucleic Acid Amplification. Results do not exclude the possibility of a mixed viral infection. NOTE: ??Detecting and identifying specific viral nucleic acids from individuals exhibiting signs and symptoms of respiratory infection aids in the diagnosis of respiratory infection, if used in conjunction with other clinical and laboratory findings. The results of this test should not be used as the sole basis for diagnosis, treatment, or patient management decisions. This nucleic acid amplification assay performance was validated by [facility]. This test has been authorized by the Food and Drug administration (FDA)under an Emergency??Use Authorization (EUA). This test has been validated in accordance with the FDA's guidance document Policy for Diagnostic Testing in Laboratories Certified to perform High Complexity Testing under CLIA prior to Emergency Use Authorization for Coronavirus Disease-2019 during the Public Health Emergency issued on May 13, 2019. FDA independent review of this validation is pending. This test is only authorized for the duration of time the declaration that circumstances exist justifying the authorization of emergency use of in vitro diagnostic tests for detection of SARS-CoV-2 virus and/or diagnosis of COVID-19 infection under section 564(b)(1) of the Act, 21 U.S.C 360bbb-3 (b)(1), unless the authorization is terminated or revoked sooner. Fact Sheets for this EUA assay are available upon request. Jesus Glass MD LAB - MICROBIOLOGY ORDERABLES [address] [address], [facility] [phone] * LACTIC ACID BLOOD (05/17/2021 12:47 AM MACHINE IRONER) Lactic Acid-Stat 0.8 <=2.0 mmol/L 05/17/2021 1:22 AM [facility] Blood BLOOD SPECIMEN / Unknown Venipuncture / Unknown 05/17/2021 12:47 AM MACHINE IRONER 05/17/2021 1:03 AM MACHINE IRONER Jesus Glass MD LAB - CHEMISTRY ORD ERABLES Performing Organization Address [facility] Co de Phone Number [address] [address], [facility] [phone] * ALCOHOL ETHYL BLOOD (05/17/2021 12:47 AM MACHINE IRONER) Ethanol (mg/dL) <10 <10 mg/dL 1:23 AM [facility] Ethanol Calculated (g/dL) <0.010 <0.010 g/dL 05/17/2021 1:23 AM [facility] Blood BLOOD SPECIMEN / Unknown Venipuncture / Unknown 05/17/2021 12:47 AM MACHINE IRONER 05/17/2021 1:03 AM MACHINE IRONER Narrative [facility] - 05/17/2021 1:23 AM MACHINE IRONER Ethanol Interp <10: None Detected. Depression of ASSOCIATE THEATRE PROFESSOR: >100 mg/dl Potentially Critical: >250 mg/dl Potentially Fatal >400 mg/dl Ethanol in the patient's blood will contribute to the osmolar gap. Ethanol's contribution to the osmolar gap can be estimated by dividing the concentration of ethanol in mg/dL by 4.6. This test is for clinical use only and does not equal a NINI for legal purposes. Jesus Glass MD LAB - CHEMISTRY ORD ERABLES Performing Organization Address City/[facility]/ZIP Co de Phone Number [address] [address], [facility] [phone] * OH ANALYS BRN NPGT PRGRMG 15 MIN (04/25/2021 11:10 AM MACHINE IRONER) Narrative Chandler Kohli MD - 04/25/2021 11:10 AM MACHINE IRONER Chandler Kohli MD ? 04/25/2021 11:11 AM See procedure note for documentation. I spent 15 minutes in interrogating the battery, ??documenting the current parameters of amplitude, pulse width, frequency, impedance and current outflow and in reprogramming the deep brain stimulator as described in the clinical note ??with improvement in his symptoms of rigidity, tremor and bradykinesia. Chandler Kohli MD PROCEDURE/MINOR SURG ICAL ORDERABLES * OH ANALYS BRBenito NPGT PRGRMG 15 MIN (03/26/2021 4:18 PM MACHINE IRONER) Narrative Chandler Kohli MD - 03/26/2021 4:18 PM MACHINE IRONER Chandler Kohli MD ? 03/26/2021 ??4:19 PM See procedure note for documentation. I spent 15 minutes in interrogating the battery, ??documenting the current parameters of amplitude, pulse width, frequency, impedance and current outflow and in reprogramming the deep brain stimulator as described in the clinical note ??with improvement in his symptoms of rigidity, tremor and bradykinesia. Chandler Kohli MD PROCEDURE/MINOR SURG ICAL ORDERABLES * OH ANALYS BRBenito NPGT PRGRMG 15 MIN (02/26/2021 4:16 PM MACHINE IRONER) Narrative Chandler Kohli MD - 02/26/2021 4:16 PM MACHINE IRONER Chandler Kohli MD ? 02/26/2021 ??4:17 PM See procedure note for documentation. I spent 15 minutes in interrogating the battery, ??documenting the current parameters of amplitude, pulse width, frequency, impedance and current outflow and in reprogramming the deep brain stimulator as described in the clinical note ??with improvement in his symptoms of rigidity, tremor and bradykinesia. Chandler Kohli MD PROCEDURE/MINOR SURG ICAL ORDERABLES * AMYLASE BLOOD (01/22/2021 3:43 PM MACHINE IRONER) Amylase 35 21 - 101 U/L [facility] Comment: Test Performed at: [facility] [address] [place], [place] ??[phone] ATILIO VÁSQUEZ DO,MPH Blood BLOOD SPECIMEN / Unknown 01/22/2021 3:43 PM MACHINE IRONER 01/22/2021 3:49 PM MACHINE IRONER Deonna Copeland PA-C LAB - CHEMISTRY O RDERABLES Performing Organization Address [facility] de Phone Number [address] [address] * TSH (01/22/2021 3:43 PM MACHINE IRONER) TSH 1.40 0.40 - 4.50 mIU/L [facility] Comment: Test Performed at: [facility] [place] [address] [place], [place] ??[phone] ATILIO VÁSQUEZ DO,MPH Blood BLOOD SPECIMEN / Unknown 01/22/2021 3:43 PM MACHINE IRONER 01/22/2021 3:49 PM MACHINE IRONER Deonna Copeland PA-C LAB - CHEMISTRY O RDERABLES Performing Organization Address [facility] de Phone Number [place] [phone] * T4 FREE (01/22/2021 3:43 PM MACHINE IRONER) T4 Free 1.3 0.8 - 1.8 ng/dL [facility] Comment: Test Performed at: [facility] [place] [address] [place], [place] ??[phone] ATILIO VÁSQUEZ DO,MPH Blood BLOOD SPECIMEN / Unknown 01/22/2021 3:43 PM MACHINE IRONER 01/22/2021 3:49 PM MACHINE IRONER Deonna Copeland PA-C LAB - CHEMISTRY O RDERABLES Performing Organization Address [facility] [place] [address] * [place] ANALYS BRN NPGT PRGRMG 15 MIN (12/11/2020 4:15 PM CDT) Narrative Chandler Kohli MD - 12/11/2020 4:15 PM CDT Chandler Kohli MD ? 12/11/2020 ??4:16 PM See procedure note for documentation. I spent 15 minutes in interrogating the battery, ??documenting the current parameters of amplitude, pulse width, frequency, impedance and current outflow and in reprogramming the deep brain stimulator as described in the clinical note ??with improvement in his symptoms of bradykinesia. Chandler Kohli MD PROCEDURE/MINOR SURG ICAL ORDERABLES * OH ANALYZE NEUROSTIM NO PROG (09/10/2020 2:23 PM CDT) Narrative Chandler Kohli MD - 09/10/2020 2:23 PM CDT Chandler Kohli MD ? 09/10/2020 ??2:24 PM See procedure note for documentation. I spent 15 minutes in interrogating the battery, ??documenting the current parameters of amplitude, pulse width, frequency, impedance and current outflow and in attempting to reprogram the deep brain stimulator as described in the clinical note. In view of adverse events No change made. ?? Chandler Kohli MD PROCEDURE/MINOR SURG ICAL ORDERABLES * OH ANALYS BRN NPGT PRGRMG 15 MIN (07/10/2020 1:28 PM CDT) Narrative Chandler Kohli MD - 07/10/2020 1:28 PM CDT Chandler Kohli MD ? 07/10/2020 ??1:28 PM See procedure note for documentation. I spent 15 minutes in interrogating the battery, ??documenting the current parameters of amplitude, pulse width, frequency, impedance and current outflow and in reprogramming the deep brain stimulator as described in the clinical note ??with improvement in his symptoms of rigidity, tremor and bradykinesia. Chandler Kohli MD PROCEDURE/MINOR SURG ICAL ORDERABLES * HELICOBACTER PYLORI ANTIBODY IGA (2020 10:31 AM CDT) Helicobacter pylori Antibody IgA <9.0 0.0 - 8.9 units 05/30/2020 4:10 PM CDT [facility] ([facility]) Comment: ?Negative ?<9.0 ?Equivocal ?? 9.0 - 11.0 ?Positive ? >11.0 Blood BLOOD SPECIMEN / Unknown Lab Venipuncture / Unknown 2020 10:31 AM CDT 2020 10:57 AM CDT Narrative [facility] ([facility]) - 05/30/2020 4:10 PM CDT Performed at: ??01 - [facility] [address] [place], [place] ??[id number] Certified Juvenile Probation Officer: David Nick PhD, Phone: ??[phone] Ernie Echevarria MD LAB - SEROLOGY ORDER WIL Performing Organization Address City/State/[facility] Co de Phone Number [facility] ([facility]) [address] [place] [phone] * HELICOBACTER PYLORI ANTIBODY IGG (2020 10:31 AM CDT) H pylori Antibody IgG 0.11 0.00 - 0.79 Index Value 05/30/2020 6:10 AM CDT [facility] ([facility]) Comment: ? Negative ? <0.80 ? Equivocal ?0.80 - 0.89 ? Positive ? >0.89 Blood BLOOD SPECIMEN / Unknown Lab Venipuncture / Unknown 2020 10:31 AM CDT 2020 10:57 AM CDT Narrative [facility] ([facility]) - 05/30/2020 6:10 AM CDT Performed at: ??01 - [facility] [address] [place], [place] ??[id number] Certified Juvenile Probation Officer: David Nick PhD, Phone: ??[phone] Ernie Echevarria MD LAB - CHEMISTRY ORDE BELKIS Performing Organization Address [facility]/ZIP Co de Phone Number [facility] ([facility]) [address] [place] [address] * HELICOBACTER PYLORI ANTIBODY IGM (2020 10:31 AM CDT) Helicobacter pylori Antibody IgM Units <9.0 0.0 - 8.9 units 05/31/2020 2:09 PM CDT [facility] ([facility]) Comment: ?Negative ?<9.0 ?Equivocal ?? 9.0 - 11.0 ?Positive ? >11.0 This test was developed and its performance characteristics determined by [facility]. It has not been cleared or approved by the Food and Drug Administration. Blood BLOOD SPECIMEN / Unknown Lab Venipuncture / Unknown 2020 10:31 AM CDT 2020 10:57 AM CDT Narrative [facility] ([facility]) - 05/31/2020 2:09 PM CDT Performed at: ??01 - [facility] [address] [place], [place] ??[id number] Certified Juvenile Probation Officer: David Nick PhD, Phone: ??[phone] Ernie Echevarria MD LAB - SEROLOGY ORDER WIL Performing Organization Address [facility]/ZIP Co de Phone Number [facility] ([facility]) [address] [place] [phone] * OH ANALYS BRN NPGT PRGRMG 15 MIN (05/23/2020 3:56 PM MACHINE IRONER) Narrative Chandler Kohli MD - 05/23/2020 3:56 PM MACHINE IRONER Chandler Kohli MD ? 05/23/2020 ??3:57 PM See procedure note for documentation. I spent 15 minutes in interrogating the battery, ??documenting the current parameters of amplitude, pulse width, frequency, impedance and current outflow and in reprogramming the deep brain stimulator as described in the clinical note ??with improvement in his symptoms of rigidity, tremor and bradykinesia. Chandler Kohli MD PROCEDURE/MINOR SURG ICAL ORDERABLES * OH ANALYS BRN NPGT PRGRMG ADDL 15, OH ANALYS BRN NPGT PRGRMG ADDL 15, OH ANALYS BRN NPGT PRGRMG ADDL 15, OH ANALYS BRN NPGT PRGRMG 15 MIN (04/26/2020 4:58 PM MACHINE IRONER) Narrative Chandler Kohli MD - 04/26/2020 4:58 PM MACHINE IRONER Chandler Kohli MD ? 04/26/2020 ??4:59 PM See procedure note for documentation. I spent 60 minutes in interrogating the battery, ??documenting the current parameters of amplitude, pulse width, frequency, impedance and current outflow and in reprogramming the deep brain stimulator as described in the clinical note ??with improvement in his symptoms of rigidity, tremor and bradykinesia. Chandler Kohli MD PROCEDURE/MINOR SURG ICAL ORDERABLES * XR NECK SOFT TISSUE (04/01/2020 10:40 AM MACHINE IRONER) Anatomical Region Laterality Modality Head Radiographic Ivana ging 04/01/2020 11:2 7 AM MACHINE IRONER Impressions 04/01/2020 5:09 PM MACHINE IRONER Impression: Deep brain stimulator lead extending up the left neck without evidence of discontinuity. Dictated by Adrian Silver MD (vice president underwriting) I, Dr. MAYNOR RICHARDSON M.D. have personally reviewed and interpreted this examination/study. This report was electronically signed by MAYNOR RICHARDSON M.D. ??on 04/01/2020 5:09 PM . Narrative 04/01/2020 5:09 PM MACHINE IRONER Exam: XR NECK SOFT TISSUE Date: 04/01/2020 10:40 AM History: G20: Parkinson's disease Findings: A battery pack overlies the left chest with lead extending up the left neck and left temporal scalp. No discontinuity of the lead is seen. A staple line is seen along the left temporal scalp. There is soft tissue swelling and gas along the left lateral aspect of the neck. The seventh cervical vertebra is obscured by the shoulders. The cervical spine alignment is maintained. There is no fracture or subluxation of the cervical spine. There is moderate multilevel intervertebral disc space narrowing, most prominent at C4-5. The predental interval is normal. Procedure Note Maynor Richardson MD - 04/01/2020 Exam: XR NECK SOFT TISSUE Date: 04/01/2020 10:40 AM History: G20: Parkinson's disease Findings: A battery pack overlies the left chest with lead extending up the left neck and left temporal scalp. No discontinuity of the lead is seen. A staple line is seen along the left temporal scalp. There is soft tissue swelling and gas along the left lateral aspect of the neck. The seventh cervical vertebra is obscured by the shoulders. The cervical spine alignment is maintained. There is no fracture or subluxation ofthe cervical spine. There is moderate multilevel intervertebral disc space narrowing, most prominent at C4-5. The predental interval is normal. Impression: Deep brain stimulator lead extending up the left neck without evidenceof discontinuity. Dictated by Adrian Silver MD (vice president underwriting) I, Dr. MAYNOR RICHARDSON M.D. have personally reviewed and interpreted this examination/study. This report was electronically signed by MAYNOR RICHARDSON M.D. on 04/01/2020 5:09 PM . Jai Caballero MD DIAGNOSTIC IMAGING ORDERABLES * ETT LINE PERFORMABLE (04/01/2020 8:03 AM MACHINE IRONER) Narrative Keshia Culver APRN-CRNA - 04/01/2020 8:03 AM MACHINE IRONER Keshia Culver APRN-CRNA ? 04/01/2020 ??8:03 AM Endotracheal Tube Placement: ? Patient Location: OR. Intubation Event Date/Time: ??04/01/2020 7:41 AM Procedure: intubation ([id number]). Procedure Section: ?? Sedation: under general anesthesia. Indications for Airway Management: ??anesthesia Induction: standard IV Patient Position: ??sniffing Mask Ventilation: easy. Blade Type: David Blade Size: 3 Laryngoscopy View: grade 1 (full cords) Intubation Adjuncts: stylet Tube: endotracheal tube Placement: oral Tube type: cuff - inflated Tube Size (MM): 7 Depth of Insertion (CM): 22 Measured From: lips Cuff Inflated With: air Number of Attempts: 1. Placement Verified By: direct visualization, bilateral breath sounds, chest auscultation and CO2 monitor Tube secured with: ??adhesive tape. Dentition unchanged? ??Yes Difficult Airway? ??No. Procedure Start Time: 04/01/2020 7:41 AM. Staff Section ?? Anesthesia Provider: Keshia Culver, HEALTH INSPECTOR-WAITER/WAITRESS, Performed the procedure Paty Benavidez MD GENERAL ANESTHESIA ORDERABLES * SARS-COV-2 (COVID-19) PRE-SURGICAL/PROCEDURE (03/28/2020 10:48 AM MACHINE IRONER) Only the most recent of2 resultswithin the time period is included. COVID-19 PCR Not detected Not detected 03/28/2020 10:23 PM MACHINE IRONER [facility] MICROBIOLOGY Microbiology SPECIMEN FROM NASOPHARYNGEAL STRUCTURE / Unknown Collection / Unknown 03/28/2020 10:48 AM MACHINE IRONER 03/28/2020 10:49 AM MACHINE IRONER Narrative [facility]CRO[facility] - 03/28/2020 10:23 PM MACHINE IRONER This nucleic acid amplification assay performance was validated by [facility]. This test has been authorized by the Food and Drug administration (FDA)under an Emergency??Use Authorization (EUA). This test has been validated in accordance with the FDA's guidance document Policy for Diagnostic Testing in Laboratories Certified to perform High Complexity Testing under CLIA prior to Emergency Use Authorization for Coronavirus Disease-2019 during the Public Health Emergency issued on May 13, 2019. FDA independent review of this validation is pending. This test is only authorized for the duration of time the declaration that circumstances exist justifying the authorization of emergency use of in vitro diagnostic tests for detection of SARS-CoV-2 virus and/or diagnosis of COVID-19 infection under section 564(b)(1) of the Act, 21 U.S.C 360bbb-3 (b)(1), unless the authorization is terminated or revoked sooner. Fact Sheets for this EUA assay are available upon request. Jai Caballero MD LAB - MICROBIOLOGY ORDERABLES [facility]CRO[facility] [address] [place] [address], [facility] [phone] * MRI BRAIN WWO CONTRAST (12/15/2019 9:08 AM CDT) Anatomical Region Laterality Modality Head Magnetic Resonan ce 12/15/2019 11:1 5 AM CDT Impressions 12/15/2019 11:24 AM CDT IMPRESSION: 1. No evidence of acute intracranial findings or abnormal enhancement. This report was electronically signed by MEHUL RODRIGUEZ ??on 12/15/2019 11:24 AM . Narrative 12/15/2019 11:24 AM CDT MRI BRAIN WWO CONTRAST DATE: 12/15/2019 9:09 AM EXAMINATION: Magnetic resonance imaging (MRI) of the brain without and with contrast HISTORY: G20: Parkinson disease TECHNIQUE: MRI of the brain was performed prior to and following the uneventful administration of 7.5 mL intravenous GADAVIST contrast according to a movement disorder protocol. COMPARISON: No prior study is available for comparison at the time of this dictation. FINDINGS: Images are degraded due to motion artifacts. No evidence of acute or chronic hemorrhage is identified. Susceptibility artifact in the bilateral globi pallidi likely representing mineralization. No evidence of acute cerebral infarction is seen. There is mild cerebral volume loss with associated ex vacuo ventricular dilatation.. There is prominence of the frontal and parietal sulci and sylvian fissure, suggesting regional volume loss. 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 No mass effect or midline shift is seen. Scattered cerebral hemispheric white matter FLAIR hyperintensities are a nonspecific finding. No enhancing lesions are identified. The corpus callosum and sella appear normal. The posterior fossa, brainstem, and craniocervical junction appear normal. The visualized portions of the orbits appear grossly unremarkable. There is mild paranasal sinuses disease with mild mucosal thickening in the ethmoid air cells. There is minimal fluid signal in the left mastoid air cells. The remaining mastoid air cells appear grossly clear. Normal flow voids are demonstrated in the carotid arteries and basilar artery. The calvarium and visualized cervical spine appear normal. Procedure Note Mehul Rodriguez MD - 12/15/2019 MRI BRAIN WWO CONTRAST DATE: 12/15/2019 9:09 AM EXAMINATION: Magnetic resonance imaging (MRI) of the brain without and with contrast HISTORY: G20: Parkinson disease TECHNIQUE: MRI of the brain was performed prior to and following the uneventful administration of 7.5 mL intravenous GADAVIST contrast according to a movement disorder protocol. COMPARISON: No prior study is available for comparison at the time ofthis dictation. FINDINGS: Images are degraded due to motion artifacts. No evidence of acute or chronic hemorrhage is identified. Susceptibility artifact in the bilateral globi pallidi likely representing mineralization. No evidence of acute cerebral infarction is seen. Thereis mild cerebral volume loss with associated ex vacuo ventricular dilatation.. There is prominence of the frontal and parietal sulci and sylvian fissure, suggesting regional volume loss. 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 No mass effect or midline shift is seen. Scattered cerebral hemispheric white matter FLAIR hyperintensities are a nonspecific finding. No enhancing lesions are identified. The corpus callosum and sella appear normal. The posterior fossa, brainstem, and craniocervical junction appear normal. The visualized portions of the orbits appear grossly unremarkable. There is mild paranasal sinuses disease with mild mucosal thickening in the ethmoid air cells. There is minimal fluid signal in the left mastoid air cells. The remaining mastoid air cells appear grossly clear. Normal flow voids are demonstrated in the carotid arteries and basilar artery. The calvarium and visualized cervical spine appear normal. IMPRESSION: 1. No evidence of acute intracranial findings or abnormal enhancement. This report was electronically signed by MEHUL RODRIGUEZ on12/15/2019 11:24 AM . Zak Mathews APRNElisaGRAIN MIXER MR ORDERABLES * CREATININE - POCT INTERFACED (12/15/2019 6:18 AM CDT) Creatinine POCT 0.46 0.30 - 1.30 mg/dL 12/15/2019 10:16 AM CDT [facility] Comment:Range ok for MRI eGFR >60 >60 mL/min/1.7 3 m2 12/15/2019 10:16 AM CDT [facility] Blood BLOOD SPECIMEN / Unknown 12/15/2019 6:18 AM CDT 12/15/2019 10:16 AM CDT Zak BALES LAB - POINT OF C ARE ORDERABLES [facility] [address] [place] [address], [facility] [phone] * FL ESOPHOGRAM (02/01/2013 9:08 AM MACHINE IRONER) Anatomical Region Laterality Modality Chest Other Impressions 02/06/2013 7:11 AM MACHINE IRONER Impression: Mild gastroesophageal reflux. Otherwise, normal esophagram. Report dictated by Cindi Hood M.D. (vice president underwriting). This report was approved ??by Cindi Hood M.D. ?? on 02/03/2013 8:13 AM . I, Dr. Dr. MERCEDES MAE MD have personally reviewed and interpreted this examination/study. This report was electronically signed by Dr. MERCEDES MAE MD ??on 02/06/2013 7:11 AM . Narrative 02/06/2013 7:11 AM MACHINE IRONER Exam: ??FL ESOPHAGUS Date: 02/01/2013 9:20 AM History: ??Chest tightness. Esophageal spasm. Comparison: Comparison is made with a prior study dated Procedure. Patient was given barium to swallow and images were taken under fluoroscopy. Images were taken in AP, lateral and oblique views. Findings: The contour and caliber of the esophagus is normal. The gastroesophageal junction is normal. There is no evidence of obstruction or abnormal masses. There is no stricture or ulceration or abnormal dilatation. Normal peristaltic movement is seen in the esophagus. There is mild gastroesophageal reflux. Procedure Note Mercedes Mae MD - 06/12/2017 Exam: FL ESOPHAGUS Date: 02/01/2013 9:20 AM History: Chest tightness. Esophageal spasm. Comparison: Comparison is made with a prior study dated Procedure. Patient was given barium to swallow and images were taken underfluoroscopy. Images were taken in AP, lateral and oblique views. Findings: The contour and caliber of the esophagus is normal. Thegastroesophageal junction is normal. There is no evidence of obstructionor abnormal masses. There is no stricture or ulceration or abnormaldilatation. Normal peristaltic movement is seen in the esophagus. There is mild gastroesophageal reflux. IMPRESSION Impression: Mild gastroesophageal reflux. Otherwise, normal esophagram. Report dictated by Cindi Hood M.D. (vice president underwriting). This report was approved by Cindi Hood M.D. on 02/03/2013 8:13 AM. I, . Dr. MERCEDES MAE MD have personally reviewed and interpreted thisexamination/study. This report was electronically signed by Dr. MERCEDES MAE MD on02/06/2013 7:11 AM . Arin Bender MD FLUOROSCOPY ORDERA BLES * NUC BREATH TEST ANALYZE (03/20/2010 11:57 AM MACHINE IRONER) Anatomical Region Laterality Modality Nuclear Medicine 03/27/2010 1:39 PM MACHINE IRONER Impressions 03/27/2010 1:39 PM MACHINE IRONER Negative for H. pylori Narrative 03/27/2010 1:39 PM MACHINE IRONER NM 14C Breath Test Date: 03/20/2010 History: Stomach pain Technique: A breath sample was collected following the administration of 1.0 uCi of 14C Urea. ??Analysis was done at an outside facility. Findings: Total disintegrations per minute was 39. Normal 0-49 Indeterminate 50-199 Positive >200 Procedure Note Felton Garibay MD - 03/27/2010 NM 14C Breath Test Date: 03/20/2010 History: Stomach pain Technique: A breath sample was collected following the administration of 1.0 uCi of 14C Urea. Analysis was done at an outside facility. Findings: Total disintegrations per minute was 39. Normal 0-49 Indeterminate 50-199 Positive >200 IMPRESSION Negative for H. pylori Simon Barahona MD NM ORDERABLES Care Teams Sound Truck Operator Relationship Specialty Start Date End Date Michael Ford MD [address] [place] [phone] PCP - General Family Medicine 10/05/21
--- OUTSIDE RECORDS SUMMARY | 2024-04-07 03:16 | XMS_ITS | Encounter Summary ---
Author Organization [facility] Address [address] [facility] [place] [address] Care Team Providers Care Claim Specialist Name Role Phone Fina Prather MD Primary Care Provider + [phone] Brenda Lee MD Primary Care Provider [phone] Michael Ford MD Primary Care Provider + [phone] Fina Prather MD Primary Care Provider + [phone] Michael Ford MD Primary Care Provider + [phone] Encounter Details Date Type Department Care Team (Late st Contact Info) Description 03/28/2020 Preop Outreach [facility] [address] [place] [phone] Isaías Blevins MD [address] [place] [address] Social History Tobacco Use Types Packs/Day Years Used Date Smoking Tobacco: Never Smokeless Tobacco: Never Alcohol Use Standard Drinks/Week Comments Not Currently 0.2 (1 standard drink = 0.6 oz p ure alcohol) Sex and Gender Information Value Date Recorded Sex Assigned at Not on file Gender Identity Not on file Sexual Orientation Not on file COVID-19 Exposure Response Date Recorded In the last month, have you been in contact with someone who was confirmed or suspected to have Coronavirus / COVID-19? No / Unsure 03/21/2020 10:00 AM INSPECTOR RAG SORTING documented as of this encounter Plan of Treatment Upcoming Encounters Date Type Department Care Team (Late st Contact Info) Description 04/12/2024 3:30 PM INSPECTOR RAG SORTING Office Visit [facility] - Neurology [address] [place] [address], [place] [address] Bisi Ethanlucasbridger, BEHAVIORAL HEALTH TECH-PROCESS HELPER [address] [place] [address] [place] [phone] 05/24/2024 1:30 PM CDT Office Visit [facility] - GI [address] [place] [address], [place] [phone] Getachew Scott MD [address] [place] [phone] documented as of this encounter Visit Diagnoses Not on filedocumented in this encounter Additional Health Concerns Infection Onset Date Last Indicated Resolved Time COVID-19 Under Investigation 03/28/2020 03/28/2020 03/28/2020 10:23 PM INSPECTOR RAG SORTING COVID-19 Under Investigation 10/05/2021 10/05/2021 10/05/2021 6:44 PM CDT documented as of this encounter Care Teams Claim Specialist Relationship Specialty Start Date End Date Fina Prather MD PCP - General 12/01/19 05/16/21 Brenda Lee MD [address] [place] [address] PCP - General Family Medicine 05/17/21 05/26/21 Michael Ford MD [address] [address] PCP - General Family Medicine 06/09/21 06/15/21 Fina Prather MD PCP - General 06/16/21 09/10/21 Michael Ford MD [address] [place] [phone] PCP - General Family Medicine 10/05/21 documented as of this encounter
--- OUTSIDE RECORDS SUMMARY | 2024-04-07 03:16 | XMS_ITS | Referral Summary ---
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 Continue to monitor Blood pressure. Parkinson's disease 08/16/2017 Orthostatic hypotension 12/16/2016 Social History Tobacco Use Types Packs/Day Years [...] on file Legal Sex Female 5:40 AM ONCOLOGY PATIENT NAVIGATOR Gender Identity Not on file Sexual Orientation [...] 01/06/2024 10:00 AM CDT Plan of Treatment Not on file Insurance MEDICARE FOR LIFE MEDICARE FOR LIFE MEDICARE [id number] FOR LIFE Care Teams Science Tutor Relationship Specialty Start Date End Date Michael Ford MD PCP - General Family Medicine 12/23/21
== END 2024-04-05 16:06 | disposition home or self-care (01) ==
PROVIDERS: PCP Family Medicine
DX: M79.622 Pain in left upper arm (principal); M19.012 Primary osteoarthritis, left shoulder
CPT/HCPCS: 73060

== ENCOUNTER 2024-06-16 15:10 | Emergency (ER) | payer MEDICARE, OTHER, SELFPAY ==
[2024-06-16] VITALS (13 sets, daily range): BP systolic 158–199; BP diastolic 89–118; PULSE 62–75; RESP 13–20; TEMP 36.5–36.6; O2SAT 93–98
--- NOTE | ~2024-06-16 | CT_ITS ---
EXAMINATION: CT brain wo con DATE: 06/16/2024 16:16 INDICATION: Syncope. Parkinson's disease. TECHNIQUE: Computed tomography (CT) of the head was performed without intravenous contrast. Sagittal and coronal reconstructions were performed. The mA was adjusted according to patient size. Iterative reconstruction technique was employed. The dose-length product was 605.33 mGy-cm. COMPARISON: head CT dated 01/17/2024 FINDINGS: No fracture. Stable appearance of bilateral deep brain stimulators in expected position and extending through bilateral frontal willis holes. No acute intracranial hemorrhage, acute infarction or abnormal extra axial fluid collection. Symmetric prominence of the sulci consistent with mild age-appropriate diffuse cerebral volume loss. Ventricles are normal and symmetric. No mass/mass effect. The orbits, paranasal sinuses and mastoid air cells are normal. IMPRESSION: 1. Normal aging brain with unchanged bilateral deep brain stimulators expected position. No acute int racranial process. Reviewed, dictated and finalized at location A. IMPRESSION: 1. Normal aging brain with unchanged bilateral deep brain stimulators expected position. No acute intracranial process.
--- NOTE | ~2024-06-16 | XR_ITS ---
XR hip RT 2V w AP pelvis 06/16/2024 16:23 Indication: Hip pain Procedure: 3 views right hip including AP pelvis Comparison: 06/30/2019 Findings: There is moderate bilateral osteoarthritis of the hips. Pelvic rings are intact. No fractur e or traumatic malalignment. No significant soft tissue abnormality. Impression: 1: No acute bone or joint abnormality. 2: Moderate osteoarthritis of the hips. Reviewed, dictated and finalized at location A. Impression: 1: No acute bone or joint abnormality. 2: Moderate osteoarthritis of the hips.
--- NOTE | ~2024-06-16 | XR_ITS ---
XR chest 2V 06/16/2024 16:23 Indication: Syncope Procedure: 2 view chest Comparison: Comparison to multiple prior studies sequentially, with oldest reviewed study dated 09/21. Findings: The lungs are hyperinflated which is consistent with, but not diagnostic of chronic obstruc tive pulmonary disease. Heart size normal. No focal air space disease, pulmonary edema, pleural effus ion or suspected pneumothorax. Battery pack stimulator leads are identified unchanged. Impression: 1: No acute cardiopulmonary disease. Reviewed, dictated and finalized at location A. Impression: 1: No acute cardiopulmonary disease.
--- OUTSIDE RECORDS SUMMARY | 2024-06-16 15:14 | XMS_ITS | Encounter Summary ---
Author Organization [facility] Address [address] [place] [address] Care Team Providers Care Heel Seat Flap Stapler Name Role Phone Fina Prather MD Primary Care Provider + [phone] Brenda Lee MD Primary Care Provider [phone] Michael Ford MD Primary Care Provider + [phone] Fina Prather MD Primary Care Provider + [phone] Michael Ford MD Primary Care Provider + [phone] Encounter Details Date Type Department Care Team (Late st Contact Info) Description 03/28/2020 Preop Outreach [facility] NEUROS[facility]ERY [address] [place] [phone] Isaías Blevins MD [address] [place] [address] Social History Tobacco Use Types Packs/Day Years [...] COVID-19? No / Unsure 03/21/2020 10:00 AM SHEEP SORTER documented as of this encounter Plan of Treatment Upcoming Encounters Date Type Department Care Team (Late st Contact Info) Description 10/11/2024 2:00 PM CDT Office Visit [facility] - Neurology [address] [place] [address], [place] [address] Zak Mathews, FAMILY SERVICE CENTER DIRECTOR-URBAN AND REGIONAL PLANNER [address] [place] [address] [place] [phone] 11/22/2024 2:30 PM CDT Office Visit [facility] - GI [address] [place] [address], [place] [phone] Getachew Scott MD [address] [place] [phone] documented as of this encounter Visit Diagnoses Not on filedocumented in this encounter Additional Health Concerns Infection Onset Date Last Indicated Resolved Time COVID-19 Under Investigation 03/28/2020 03/28/2020 03/28/2020 10:23 PM SHEEP SORTER COVID-19 Under Investigation 10/05/2021 10/05/2021 10/05/2021 6:44 PM CDT documented as of this encounter Care Teams Heel Seat Flap Stapler Relationship Specialty Start Date End Date Fina Prather MD PCP - General 12/01/19 05/16/21 Brenda Lee MD [address] [place] [address] PCP - General Family Medicine 05/17/21 05/26/21 Michael Ford MD [address] [phone] PCP - General Family Medicine 06/09/21 06/15/21 Fina Prather MD PCP - General 06/16/21 09/10/21 Michael Ford MD [address] [place] [phone] PCP - General Family Medicine 10/05/21 documented as of this encounter
--- OUTSIDE RECORDS SUMMARY | 2024-06-16 15:14 | XMS_ITS | Clinical Summary ---
Author Organization [facility] [address] Address [address] [place] [address] Care Team Providers Care Advanced Practice Registered Nurse Name Role Phone Michael Ford MD Primary Care Provider [phone] Allergies Active Allergy Reactions Criticality Noted Date [...] every 30 (thirty) days Takes on the 1 Active omeprazole (PriLOSEC) 40 mg capsule [...] daily 4 Active fludrocortisone 0.1 mg tablet TAKE 2 TABLETS BY MOUTH DAILY. 180 tablet 1 5 Active Active Problems Problem Noted Date Diagnosed Date COVID-19 11/21/2021 Assessment & Plan (11/21/2021 6:00 PM CDT): Having constipation since she quit her Miralax. Wants to use a suppository. Drink fluids. 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 Overview (11/16/2018): Added automatically from request for surgery [id number] Assessment & Plan (11/21/2021 5:59 PM CDT): On medication for this. Continue to monitor Blood pressure. Parkinson's disease 08/16/2017 Orthostatic hypotension 12/16/2016 Surgical History Surgery Date Site/Laterality Comments FOOT [...] on file Legal Sex Female 5:40 AM VIDEO EDITING INTERNSHIP Gender Identity Not on file Sexual Orientation Not on file Obstetrics History Last Filed Vital Signs Vital Sign Reading Time Taken Comments Blood Pressure 160/90 01/06/2024 10:00 AM CDT Pulse 56 01/06/2024 10:00 AM CDT Temperature 36.6 C (97.9 F) 09/03/2023 12:43 PM CDT Respiratory Rate 14 09/03/2023 12:43 PM CDT [...] - Tdap) 05/28/1958 Hepatitis B Screening 05/28/1965 Pneumococcal vaccine 65+ (1 of 1 - PCV) 05/28/1997 Zoster Vaccine (1 of 2) 05/28/1997 Well Visit 65+ 05/28/2012 Influenza Vaccine (#1) 2023 01/04/2020, 2016 Insurance * Guarantor: Karyna Owens Account Type Relation to Patient Date of Phone Billing Address Personal/Family Self [address] [place] [address] MEDICARE [employer] FOR LIFE * Guarantor: Owens Karyna Sammy Account Type Relation to Patient Date of Phone Billing Address Personal/Family Self [address] [place] [address] MEDICARE FOR LIFE MEDICARE FOR LIFE Care Teams Advanced Practice Registered Nurse Relationship Specialty Start Date End Date Michael Ford MD PCP - General Family Medicine 12/23/21
--- OUTSIDE RECORDS SUMMARY | 2024-06-16 15:14 | XMS_ITS | Clinical Summary ---
Author Organization [facility] Address [address] [place] [address] Care Team Providers Care Fire Patroller Name Role Phone Michael Ford MD Primary Care Provider [phone] Source Comments [facility],non-owned Affiliates and Associated Physician Practices is amultiple site organization consisting of ambulatory clinics and hospital sitesin [place], [place], [place] and [place]. This disclosure is being madepursuant to the Care Everywhere program and may not contain all information available regarding this patient. Last updated 17.[facility] Allergies Active Allergy Reactions Criticality Noted Date [...] mouth once daily 238 g 10/15/2022 Active donepezil (Aricept) 5 MG tablet Take [...] BEDTIME 30 capsule 11 03/28/2024 6 Active prucalopride (Motegrity) 2 MG tabletIndications:P arkinsons Induced Constipation. Failed numerous other agents Take 0.5 (one-half) tablet by mouth once daily Reasons: Parkinsons Induced Constipation. 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 Hypotension 05/16/2021 Altered mental status 03/30/2021 S/P deep brain stimulator placement 04/18/2020 Pre-op evaluation 03/25/2020 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 Overview (06/20/2020): Added automatically from request for surgery [id number] Orthostatic hypotension 12/16/2016 Overview (01/12/2020): Added automatically from request for surgery [id number] Parkinson's disease 11/27/2014 GERD (gastroesophageal reflux disease) 3 Encounters Date Type Department Care Team Description 06/08/2024 Telephone [facility] - Neurology [address] [place] [phone] Zak Mathews APRN-CNP Referral 06/07/2024 Orders Only [facility] - Neurology [address] [place] [phone] Zak Mathews APRN-CNP Abnormal EEG 06/07/2024 Telephone [facility] - Neurology [address] [place] [phone] Zak Mathews APRN-CNP Results (EEG) 05/31/2024 1:02 PM CDT - 05/31/2024 11:59 PM CDT Hospital Encounter [facility] EEG/EMG [address] [place] [address] Unknown, Provider Discharge Disposition: Home or Self Care 05/31/2024 Travel 05/25/2024 11:00 AM CDT Office Visit [facility] - Neurology [address] [place] [phone] Zak Mathews APRN-CNP Spell of loss of consciousness (Primary Dx); Parkinson's disease with dyskinesia and fluctuating manifestations 05/25/2024 Travel 05/24/2024 1:30 PM CDT Office Visit [facility] - GI [address] [place] [phone] Getachew Scott MD Full incontinence of feces (Primary Dx); Overflow diarrhea; Other constipation 05/24/2024 Travel 04/12/2024 3:30 PM TRIAL MANAGER Office Visit [facility] - Neurology [address] [place] [phone] Zak Mathews APRN-CNP Parkinson's disease with dyskinesia and fluctuating manifestations (Primary Dx) 04/12/2024 Travel 03/28/2024 Refill [facility] - Neurology [address] [place] [phone] Zak Mathews APRN-CNP Refill Request from Last 3 Months Immunizations Name Administration Dates Next Due AudienceView primary monoval ent 12+ yr 0.3mL Purple [...] Sign Reading Time Taken Comments Blood Pressure 146/75 05/25/2024 10:58 AM CDT Pulse 66 05/25/2024 10:58 AM CDT Temperature 36.5 C (97.7 F) 09/28/2023 5:50 AM CDT Respiratory Rate 16 09/28/2023 5:50 AM CDT Oxygen Saturation 98% 05/25/2024 10: 58 AM CDT Inhaled Oxygen Concentration 21% 03/25/2020 3 :00 PM TRIAL MANAGER Weight 65.7 kg (144 lb 12.8 oz) 025 10:58 AM CDT Height 160 cm (5' 3 ) 05/25/2024 10:58 AM CDT Body Mass Index 25.65 05/25/2024 10:58 AM CDT Plan of Treatment Upcoming Encounters Date Type Department Care Team (Late st Contact Info) Description 10/11/2024 2:00 PM CDT Office Visit [facility] - Neurology [address] [place] [phone] Zak Mathews APRN-CNP [address] [place] [address] [place] [phone] 11/22/2024 2:30 PM CDT Office Visit [facility] GI [address] [place] [address], [place] [phone] Getachew Scott MD [address] [place] [phone] Health Maintenance Due Date Last Done Comments BONE DENSITY TESTING 1945 MEDICARE AWV 12 MONTHS 1945 HEPATITIS C SCREENING 05/24/1965 DTAP/TDAP/TD VACCINES (1 - Tdap) 05/28/1966 PNEUMOCOCCAL VACCINE 50+ (1 of 1 - PCV) 05/28/1997 ZOSTER VACCINE (1 of 2) 05/28/1997 Respiratory Syncytial Virus (RSV) Vaccine Pt: or over 60 yrs (1 - 1-dose 75+ series) 05/28/2022 COVID-19 VACCINE (3 - 2023-2 5 season) 2023 09/07/2022, 04/11/2020 DEPRESSION SCREENING 03/15/2024 INFLUENZA VACCINE (Season Ended) 2024 01/12/2022, 01/04/2020, 12/30/2019 HEPATITIS B VACCINE Aged Out No longe r eligible based on patient's age to complete this topic HIB VACCINE Aged Out No longer eligi ble based on patient's age to complete this topic HPV VACCINE Aged Out No longer eligi ble based on patient's age to complete this topic MENINGOCOCCAL (Group B) VACCINE SHARED DECISION-MAKING Aged Out No longer eligible based on patient's age to complete this topic MENINGOCOCCAL GROUPS A/C/Y/W VACCINE Aged Out No longer eligible b ased on patient's age to complete this topic Goals Goal Patient Goal Type Associated Problems Recent Progress Patient-Stated? Author Medication Management General On track( 025 1:27 PM CDT) No Pelon Esquivel, RN Note: Expected end date: ongoing Interventions: Take all medications as prescribed Let your doctor know right away about any changes in your medications Make sure to request a refill of your medication at least one week prior to your last dose Medical Devices Implanted Type Area Spinning Frame Tender Device Identifier Shelf Expiration Date Model / Serial / Lot Slnt Dura Duraseal Pg Trilysine Amine 5 Implanted:Qty: 1 on 03/25/2020 by Jai Caballero MD at [facility] [employer] Elana 05/12/[id number] / / [id number] Slnt Dura Duraseal Pg Trilysine Amine 5 Implanted:Qty: 1 on 03/25/2020 by Jai Caballero MD at [facility] Left: Brain [employer] Elana 12/12/[id number] / / [id number] [employer] Infinity Dbs System Implanted:Qty: 1 on 03/25/2020 by Jai Caballero MD at [facility] Left: Brain [employer] 03/27/2021 6172 / [id number] / Marcelo Spnl 140mm 6.35mm Ti Str Implanted:Qty: 1 on 03/25/2020 by Jean Carlos Fierro MD at [facility] Left: Brain [employer] 06/19/2021 6010 / / [id number] [employer] Infinity Dbs System Implanted:Qty: 1 on 04/01/2020 by Shannon Valero MD at [facility] Left: Neck 06/01/2021 6371 / [id number] / Infinity 7 Implantable Pulse Generator Implanted:Qty: 1 on 04/01/2020 by Shannon Valero MD at [facility] Left: Chest Wall 05/30/2021 6662 / [id number] / [employer] Infinity Dbs System Implanted:Qty: 1 on 07/18/2021 by Jai Caballero MD at [facility] Right: Brain [employer] 10/31/2022 6372 / [id number] / Slnt Dura Duraseal Pg Trilysine Amine 5 Implanted:Qty: 1 on 07/18/2021 by Jai Caballero MD at [facility] Right: Brain [employer] Elana 12/12/2022 [id number] / / [id number] Cranial [place] Hole Cover Implanted:Qty: 1 on 07/18/2021 by Jai Caballero MD at [facility] Right: Cranial [employer] 05/21/2023 6010 / / [id number] [employer] Infinity Dbs System Implanted:Qty: 1 on 07/18/2021 by Jai Caballero MD at [facility] Right: Brain [employer] 09/19/2022 6172 / / [id number] Procedures Procedure Name Priority Date/Time Associated Diagnosis Comments PROC DEEP BRAIN STIMULATOR Routine 05/25/2024 2:12 PM CDT Parkinson's disease with dyskinesia and fluctuating manifestations DE ANALYZE NEUROSTIM NO PROG Routine 04/13/2024 10:35 AM TRIAL MANAGER Parkinson's disease with dyskinesia and fluctuating manifestations from Last 3 Months Results * PROC DEEP BRAIN STIMULATOR (05/25/2024 2:12 PM CDT) Paul Zak Mathews PLASTIC SHEETING CUTTER-INVESTOR RELATIONS ANALYST - 05/25/2024 2:12 PM CDT SettchloeEthanlucasbridger, PLASTIC SHEETING CUTTER-INVESTOR RELATIONS ANALYST 05/25/2024 2:14 PM Please see office notes for documentation Thanks Karpagam Settu PLASTIC SHEETING CUTTER-INVESTOR RELATIONS ANALYST PROCEDURE/MINOR SURGICAL ORDERABLES * DE ANALYZE NEUROSTIM NO PROG (04/13/2024 10:35 AM TRIAL MANAGER) Paul Zak Mathews PLASTIC SHEETING CUTTER-INVESTOR RELATIONS ANALYST - 04/13/2024 10:35 AM TRIAL MANAGER Zak Mathews, PLASTIC SHEETING CUTTER-INVESTOR RELATIONS ANALYST 04/13/2024 1:13 PM Please see office notes for documentation Thanks Karpagam Settu PLASTIC SHEETING CUTTER-INVESTOR RELATIONS ANALYST PROCEDURE/MINOR SURGICAL ORDERABLES from Last 3 Months Advance Directives Documents on File Type Date Recorded Patient Donor Relations Associate Expl anation Adv Directive/Living Will/POA 05/21/2021 [...] 8:57 AM 04/01/2020 8:57 AM Care Teams Fire Patroller Relationship Specialty Start Date End Date Michael Ford MD [address] [place] [phone] PCP - General Family Medicine 10/05/21
--- OUTSIDE RECORDS SUMMARY | 2024-06-16 15:14 | XMS_ITS | CONTINUITY OF CARE DOCUMENT ---
Author Name bart arriaga Address Unknown Organization [facility] Address [address] [place] [address] Phone [phone] Care Team Providers Care Creative Intern Name Role Phone bart arriaga Unavailable Unavailable INSURANCE PROVIDERS Payer name Policy type / Coverage type [place] red [place]an [id number] insurance company [id number] [id number]
--- OUTSIDE RECORDS SUMMARY | 2024-06-16 15:14 | XMS_ITS ---
Author Name Fina Prather Address [address] [place] [address] Phone [phone] Organization [facility] Address [address] [place] [address] Phone [phone] Care Team Providers Care Member Service Representative Name Role Phone Fina Prather Unavailable [phone] Functional Status Mental Status Allergies and Intolerances Encounters Problems Reason for Referral Past Medical History
--- OUTSIDE RECORDS SUMMARY | 2024-06-16 15:14 | XMS_ITS | Patient Health Record ---
Author Organization [facility] Address [address] [place] [address] Support Name Relationship Address Phone Nydia Barraza Emergency Contact [address] [place] [address] Karyna Kemp Guarantor Unknown [phone] Allergies No Known Allergies Reason For Referral No Information Medications Medication SIG (Take, Route, Frequency, Duration) Notes Start Date End Date Status Zofran Active MiraLax Active Vitamin D2 Active Requip Active midodrine Active Macrobid macrocrystals-monohydrate 100 mg 1 cap(s) orally Every 12 hours for 5 days Active Potassium Chlorate A ctive Synthroid Active Prilosec Active ProAmatine Active Linzess Active KlonoPIN Active Elavil Active folic acid Active Florinef Acetate Act tiffany Plan Of Treatment No Information Insurance Providers Payer Name Payer Address Payer Phone Subscriber Number Group Number Insured Name Patient Relationship to Insured Coverage Start Date Coverage End Date Medicare [address] [address] [place] [address] [id number] Karyna Kemp Self - patient is the insured Medical (General) History Medical History History ICD Code Parkinson's Disease Thyroid Disease Surgical History Surgery Date(Month/Year) Gallbladder Surgery Hysterectomy
--- OUTSIDE RECORDS SUMMARY | 2024-06-16 15:14 | XMS_ITS | Referral Summary ---
Author Organization [facility] [address] Address [address] [place] [address] Care Team Providers Care Diamond Cleaner Name Role Phone Michael Ford MD Primary Care Provider [phone] Allergies Active Allergy Reactions Criticality Noted Date [...] (11/16/2018): Added automatically from request for surgery [id number] Assessment & Plan (11/21/2021 5:59 PM CDT): [...] on file Legal Sex Female 5:40 AM WARDROBE IMAGE CONSULTANT Gender Identity Not on file Sexual Orientation [...] of Treatment Not on file Insurance MEDICARE [employer] MEDICARE [facility] MEDICARE FOR LIFE Care Teams Diamond Cleaner Relationship Specialty Start Date End Date Michael Ford MD PCP - General Family Medicine 12/23/21
--- NOTE | 2024-06-16 15:20 | ECG_ITS ---
Test Date: 2024-06-16 15:29:43 Measurements Intervals [place] Rate: 64 P: 56 [place]: 137 QRS: -73 QRSD: 130 T: 103 QT: 431 QTc: 447 Interpretive Statements SINUS RHYTHM LEFT AXIS DEVIATION INTRAVENTRICULAR CONDUCTION DELAY LEFT VENTRICULAR HYPERTROPHY AND ST-T CHANGE MINIMAL Q WAVES- HIGH LATERAL LEADS BASELINE ARTIFACT- I, II, III, AVR, AVL, V1-V6 BORDERLINE ECG Compared to ECG 01/17/2024 02:56:32 Myocardial infarct finding now present NO SIGNIFICANT CHANGE Electronically Signed On 06-16-2024 15:55:24 CDT by Abdoulaye Wiseman D.O.
--- NOTE | 2024-06-16 15:43 | ED.SYNCOPE ---
HPI - Syncope General Chief Complaint: Syncope Stated Complaint: Syncopal episode/Fall, injury to right hip Time Seen by Provider: 06/16/24 15:19 Source: patient, family and old records reviewed Mode of arrival: ambulatory Limitations: no limitations History of Present Illness HPI narrative: Patient is a 79-year-old female, with PMH of Parkinson's Disease with deep brain stimulator, CKD, CHF, chronic orthostatic hypotension on midodrine, who presents the ED with report of syncope. Patient is a resident of [facility]. Patient reports she was standing up in her kitchen today when she had apparently had a syncopal episode. She states she remembers being in the kitchen and looking at a some papers, but does not remember feeling dizzy or lightheaded prior to the syncopal episode. States she hit her head. She complains of pain to her right hip. Wanted to come be evaluated today for hip pain. She has hx of orthostatic hypotension and is chronically on midodrine. She took this prior to arrival. She has had multiple previous similar syncopal episodes in the past. She does state she has been feeling somewhat confused at times over the last few days. Denies focal weakness or numbness. Denies dizziness or lightheadedness currently. Denies chest pain or shortness of breath. Family denies any seizure like activity. Related Data Home Medications ?Medication ?Instructions ?Recorded ?Confirmed ?Last Taken ?Type carbidopa 25 mg-levodopa 100 mg tablet 02/11/24 Unknown History tablet carbidopa ER 50 mg-levodopa 200 mg tablet PO 02/11/24 Unknown History tablet,extended release cyanocobalamin (vitamin B-12) mcg 02/11/24 Unknown History 1,000 mcg/mL injection solution donepezil 5 mg tablet mg 02/11/24 Unknown History fludrocortisone 0.1 mg tablet mg 02/11/24 Unknown History folic acid 1 mg tablet 02/11/24 Unknown History gabapentin 100 mg capsule mg 02/11/24 Unknown History levothyroxine 100 mcg tablet mcg 02/11/24 Unknown History midodrine 5 mg tablet mg 02/11/24 Unknown History mirabegron 25 mg tablet,extended mg PO 02/11/24 Unknown History release 24 hr (Myrbetriq) omeprazole 40 mg capsule,delayed mg 02/11/24 Unknown History release potassium chloride 10 mEq meq PO 02/11/24 Unknown History tablet,extended release Allergies Allergy/AdvReac Type Severity Reaction Status Date / Time hydrocodone AdvReac Severe psychosis Verified 06/16/24 15:12 Review of Systems Review of Systems: All systems reviewed & are unremarkable except as noted in HPI. All systems reviewed & are unremarkable except as noted in HPI and below [facility] Past Medical History Medical History Pulmonary hypertension RVSP of 35-40 Chronic kidney disease Baseline creatinine 0.9-1 Congenital malrotation of intestine Urinary, incontinence, stress female Diastolic dysfunction Echo 11/2020: LV systolic function lower limit of normal, diastolic dysfunction grade 1, EF 50%, mild enlargement of left ventricular cavity, moderate concentric left ventricular hypertrophy, impaired diastolic relaxation grade 1 with an EF visually estimated 50%, [id number] aortic valve regurgitation, [id number] tricuspid regurgitation Kidney stones Parkinson's disease Irritable bowel syndrome Gastroesophageal reflux disease (Unknown) Duplicated urinary collecting system Orthostatic hypotension Hypothyroidism Constipation Anemia Anxiety Depression Osteoporosis Arthritis Surgical History Surgical History Status post deep brain stimulator placement History of lithotripsy History of sacrocolpopexy For symptomatic vaginal vault prolapse. History of bunionectomy of both great toes History of rectal polypectomy History of local excision of skin lesion History of hysterectomy History of bladder surgery Mid urethral sling. History of cholecystectomy History of appendectomy Family History Family History Mother Carcinoma of colon Father Family history of coronary artery disease Sibling Family history of malignant neoplasm of breast Sibling Acute myocardial infarction Other Breast cancer Social History Social History Social History: The patient is as of 2007 and lives in independent living at [place]. She has 3 daughters. Lifelong nonsmoker. No alcohol or illicit substance abuse. Her daughter Indigo Gallego is her healthcare power of prosecuting attorney. Code status: Full code. Alcohol intake: never Substance use: never Substance use type: does not use Living arrangements: [facility] Occupation/Education: retired Spiritual care concerns: No Exam Narrative: GENERAL: Elderly, frail, non-toxic, in no acute distress. HEAD: Normocephalic, atraumatic. EYES: PERRL/EOMI, conjunctivae clear bilaterally. No nystagmus. NECK: Supple. No meningeal signs. RESPIRATORY: Airway patent, respirations nonlabored. Clear to auscultation bilaterally, no rales, rhonchi, wheezing. No focal lung sounds. CARDIOVASCULAR: Regular rate and rhythm without murmurs, rubs, or gallops. Peripheral pulses 2+ and equal bilaterally. MUSCULOSKELETAL: Moves all extremities. No gross deformities. Mild TTP over R posterior hip joint. No shortening or external rotation of RLE. Sensation intact. Diffuse mild nonpitting edema in bilateral lower extremities. SKIN: Warm, dry, normal color. No rashes. NEURO: A&O X3. Speech clear. Follows commands. CN II-XII grossly intact. Sensation grossly intact. No ataxic movements, intermittent tremor of upper extremities. Strength 5/5 in upper and lower extremities bilaterally. No pronator drift. Equal senior supplier quality engineer strength bilaterally. PSYCHIATRIC: Appropriate mood and affect. Normal interaction. Course Vital Signs Vital signs: Vital Signs Temperature 97.8 F 06/16/24 15:33 Pulse Rate 62 06/16/24 15:33 Respiratory Rate 18 06/16/24 15:33 Blood Pressure 187/95 H 06/16/24 15:33 Pulse Oximetry 97 06/16/24 15:33 Oxygen Delivery Room Air 06/16/24 15:33 Temperature 97.8 F 06/16/24 15:33 Pulse Rate 66 06/16/24 15:47 Respiratory Rate 18 06/16/24 15:33 Blood Pressure 181/98 H 06/16/24 15:47 Pulse Oximetry 97 06/16/24 15:33 Oxygen Delivery Room Air 06/16/24 15:33 MDM - Syncope MDM Narrative Medical decision making narrative: Patient presented to ED with report of syncopal episode. History of orthostatic hypotension on midodrine. Hx of multiple previous episodes. Reporting some right hip discomfort after the fall. No deformity noted on exam. She is neurologically intact upon my evaluation. No focal deficits on exam. Vital signs are stable. Took her midodrine prior to arrival. She hypertensive here currently. EKG with artifact related to Parkinson's disease, but no concerning ST changes. Troponin is undetectable. Basic laboratory studies are otherwise fairly unremarkable. Mild leukopenia, consistent with previous records. Slight anemia noted as well, also fairly consistent with previous records. Creatinine 1.28. Baseline around 1.1. Given small amount of fluids in the ED. electrolytes within normal range. Magnesium borderline at 1.7. Given IV replacement. UA with trace ketones, no signs of infection. CT brain with chronic findings, no acute traumatic findings. Chest x-ray is clear. X-ray of right hip/pelvis was also negative. No fracture. Discussed overall reassuring workup with patient. She is at her neurologic baseline. She lives with family. Feel she is safe for discharge home at this time with close outpatient follow-up. Recommended that she have close follow-up with PCP for further evaluation, continue home medications, given strict return precautions. She agrees with plan. Would prefer to go home. Does not wish to be admitted at this time. Utilize shared decision making. Family in agreement with plan. Discharged in stable condition. Medical Records Attestation: I reviewed the patient's medical records. Lab Data Attestation: I reviewed the patient's lab results. 06/16/24 15:31 06/16/24 15:31 Labs: Lab Results 06/16/24 06/16/24 06/16/24 Range/Units 15:31 15:31 15:53 WBC 3.7 L (4.5-10.0) K/mm3 RBC 3.43 L (4.2-5.4) M/mm3 Hgb 11.4 L (12.0-15.0) g/dL Hct 34.6 L (37.0-47.0) % MCV 100.9 H (80-100) fl MCH 33.2 (26-34) pg MCHC 32.9 (32-36) g/dl RDW 12.5 (11.5-14.5) % Plt Count 157 (150-375) k/mm3 MPV 10.0 (7.4-10.4) fl Immature Gran % (Auto) 0.5 (0-0.5) % Neut % (Auto) 50.7 (45.5-73.1) % Lymph % (Auto) 37.8 (18.3-44.2) % [place] % (Auto) 8.6 H (2.6-8.5) % Eos % (Auto) 1.6 (0-4.4) % Baso % (Auto) 0.8 (0.2-1.2) % Lymph # (Auto) 1.40 (0.9-3.2) K/mm3 [place] # (Auto) 0.3 (0.1-0.6) K/mm3 Eos # (Auto) 0.1 (0-0.3) K/mm3 Baso # (Auto) 0.0 (0.0-0.1) K/mm3 Abs Immat Gran (auto) 0.02 (0.00-0.031) K/mm3 Absolute Neuts (auto) 1.9 (1.3-6.7) K/mm3 Absolute Nucleated RBC 0.000 (0.0-0.012) K/mm3 Nucleated RBC % 0.0 (0.0-0.2) % % Immature Plt Fraction 3.3 (0.9-11.2) % Sodium 139 (137-145) mmol/L Potassium 3.5 (3.4-5.0) mmol/L Chloride 101 (98-107) mmol/L Carbon Dioxide 30 (22-30) mmol/L Anion Gap 8 (4-12) mmol/L BUN 22 H (7-17) mg/dL Creatinine 1.28 H (0.7-1.0) mg/dL Estim Creat Clear Calc 27 ml/min Estimated GFR 40 L (59 - ) Glucose 93 (65-110) mg/dL Calcium 9.2 (8.4-10.2) mg/dL Magnesium 1.7 (1.6-2.3) mg/dL Total Bilirubin 0.8 (0.2-1.3) mg/dL AST 19 (14-36) U/L ALT 6 (6-35) U/L Alkaline Phosphatase 100 (38-126) U/L Troponin I < 0.012 (0.000-0.034) ng/mL NT-Pro-B Natriuret Pep 2250 H Cancelled (19.9-100) pg/mL Total Protein 7.0 (6.3-8.2) g/dL Albumin 4.2 (3.5-5.1) g/dL Urine Color Yellow (Yellow) Urine Appearance Clear (Clear) Urine pH 6.0 (5.0-9.0) Ur Specific Chilo 1.017 (1.001-1.035) Urine Protein Trace (Negative) mg/dL Urine Glucose (UA) Negative (Negative) mg/dL Urine Ketones Trace H (Negative) mg/dL Ur Blood (Man) Negative (Negative) Urine Nitrate Negative (Negative) Urine Bilirubin Negative (Negative) Urine Urobilinogen 1.0 (<2.0) mg/dL Add Ur Microanalysis Reviewed Leukocyte Esterase Rfl Negative (Negative) FELICIA/UL Urine RBC 0-2 (0-2) /hpf Urine WBC 0-5 (0-3) /hpf Ur Squamous Epith Cells None seen (Few) /hpf Urine Bacteria None seen /hpf Urine Casts 11-20 Hyaline Casts Present (None) /lpf Imaging Data Attestation: I personally reviewed and interpreted this imaging study as follows: Radiologist's impression: ITS Impressions Chest X-Ray 06/16/24 16:24 Impression: 1: No acute cardiopulmonary disease. Head CT 06/16/24 16:26 IMPRESSION: 1. Normal aging brain with unchanged bilateral deep brain stimulators expected position. No acute intracranial process. Hip/Pelvis X-Ray 06/16/24 16:26 Impression: 1: No acute bone or joint abnormality. 2: Moderate osteoarthritis of the hips. ECG Data EKG #1: Attestation: I personally reviewed and interpreted this ECG as follows: ECG completion date: 06/16/24 ECG completion time: 15:29 EKG Interpretation: normal rate (64), sinus rhythm, non-specific ST changes and other (Baseline artifact) Discharge Plan Discharge Clinical Impression: Syncope, Orthostatic hypotension, Strain of right hip, Hx of Parkinson's disease Patient Disposition: Home, Self-Care Condition: Stable Instructions: Antibiotic Form, Syncope (ED), Hypotension (ED) Additional Instructions: Your workup here was reassuring. Continue your home medications. Follow-up with your primary care doctor and neurologist for further evaluation. Call offices on Wednesday to make appointments. Stay well hydrated at home. Utilize Tylenol as needed for pain. Return to the ED if you experience new or worsening concerns, recurrent passing out, chest pain, difficulty breathing, unable to keep down food or drink, numbness or weakness of arm or leg, increased confusion, slurred speech, or any other symptoms of concern. Patient Language: Italian Prescriptions: No Action donepezil 5 mg tablet carbidopa-levodopa 50-200 mg tablet extended release PO midodrine 5 mg tablet potassium chloride 10 mEq tablet extended release PO omeprazole 40 mg capsule,delayed release(DR/EC) levothyroxine 100 mcg tablet cyanocobalamin (vitamin B-12) 1,000 mcg/mL solution folic acid 1 mg tablet gabapentin 100 mg capsule carbidopa-levodopa 25-100 mg tablet fludrocortisone 0.1 mg tablet mirabegron [Myrbetriq] 25 mg tablet extended release 24 hr PO Follow-up/Referrals: Michael Ford MD [Primary Care Provider] - Time of Disposition: 17:29
[2024-06-16 15:44] LABS: Basophils Percent Auto 0.8 % (0.2-1.2); Eosinophils Absolute Auto 0.1 K/mm3 (0-0.3); Eosinophils Percent Auto 1.6 % (0-4.4); Hematocrit 34.6 % (37.0-47.0); Hemoglobin 11.4 g/dL (12.0-15.0); Immature Granulocyte Absolute 0.02 K/mm3 (0.00-0.031); Immature Granulocyte Percent A 0.5 % (0-0.5); Immature Platelet Fraction Pct 3.3 % (0.9-11.2); Lymphocytes Percent Auto 37.8 % (18.3-44.2); Mean Corpuscular HGB Conc 32.9 g/dl (32-36); Mean Corpuscular Hemoglobin 33.2 pg (26-34); Mean Corpuscular Volume 100.9 fl (80-100); Monocytes Absolute Auto 0.3 K/mm3 (0.1-0.6); Monocytes Percent Auto 8.6 % (2.6-8.5); Neutrophils Absolute Auto 1.9 K/mm3 (1.3-6.7); Neutrophils Percent Auto 50.7 % (45.5-73.1); Platelet Count Result 157 k/mm3 (150-375); Red Blood Count 3.43 M/mm3 (4.2-5.4); Red Cell Distribution Width 12.5 % (11.5-14.5); White Blood Count 3.7 K/mm3 (4.5-10.0)
[2024-06-16 15:45] LABS: Alanine Aminotransferase 6 U/L (6-35); Albumin Level 4.2 g/dL (3.5-5.1); Alkaline Phosphatase 100 U/L (38-126); Anion Gap 8 mmol/L (4-12); Aspartate Amino Transferase 19 U/L (14-36); Bilirubin,Total 0.8 mg/dL (0.2-1.3); Blood Urea Nitrogen 22 mg/dL (7-17); Calcium 9.2 mg/dL (8.4-10.2); Carbon Dioxide 30 mmol/L (22-30); Chloride 101 mmol/L (98-107); Estimated CRCL calculation 27 ml/min; Estimated Glomerular Filt Rate 40; Glucose 93 mg/dL (65-110); Potassium 3.5 mmol/L (3.4-5.0); Sodium 139 mmol/L (137-145)
[2024-06-16 15:57] LABS: NT Pro B Type Natriuretic Pept 2250 pg/mL (19.9-100); Troponin I < 0.012 ng/mL (0.000-0.034)
--- OUTSIDE RECORDS SUMMARY | 2024-06-16 16:09 | XMS_ITS ---
Author Name Fina Prather Address [address] [email or web address] [address] Phone [phone] Organization [facility] Address [address] [facility] [place] [address] Phone [phone] Care Team Providers Care Babbitt Spinner Name Role Phone Fina Prather Unavailable [phone] Functional Status No Results Mental Status No Results Allergies and Intolerances No Known Allergies Encounters Program Name Primary Diagnosis Admission Date/Time Dis charge Date/Time Rehabilitation [facility] WedMay 27 20:00:00 EDT 2021Apr 21 18:59:00 EST 2024 Detention Care Facility Detention-Short Term Rehabilitation Unit WedFeb 26 19:00:00 EST 2019 Problems Active Concerns * Unspecified abnormalities of gait and mobility* Code: * Start Date: WedMar 21 00:00:00 EST 2021 * End Date: * Text: * Muscle weakness (generalized)* Code: * Start Date: WedMar 21 00:00:00 EST 2021 * End Date: * Text: * Other abnormalities of gait and mobility* Code: * Start Date: WedMay 28 00:00:00 EDT 2021 * End Date: * Text: * Weakness* Code: * Start Date: WedMay 28 00:00:00 EDT 2021 * End Date: * Text: * Parkinson's disease without dyskinesia, without mention of fluctuations* Code: * Start Date: WedDec 13 00:00:00 EDT 2022 * End Date: * Text: Reason for Referral Past Medical History Resolved Concerns * Problem Parkinson's disease* Code: * Start Date: WedMar 21 00:00:00 EST 2021 * End Date: WedDec 12 00:00:00 EDT 2022
--- OUTSIDE RECORDS SUMMARY | 2024-06-16 16:09 | XMS_ITS | Continuity of Care Document ---
Author Name Auto Generated, Auto Generated Organization [facility] Support Name Relationship Address Phone Alyssa Bolton Emergency Contact [address] [place] [address] Unavailable Alyssa Bolton Sister [address] [place] [address] Unavailable Nydia Barraza Emergency Contact 1 [address] [facility] [place] [address] Unavailable Madi, Nydia Daughter [address] [facility] [place] [address] Unavailable DeckertFidencioa Daughter Unknown [phone] DecBrenda dennis [employer] Unknown Doddridge, Sasha Sister [address] [place] [address] Karyna Edmonds Financial Responsible [employer] [address] [place] [address] Karyna Edmonds Self [address] [place] [address] Brenda Aviles Emergency Contact 3 Unknown [phone] DecBrenda dennis [facility] Unknown Summary Purpose Consult/Referral Allergies, Adverse Reactions, Alerts No Known Allergies Medications No Known Medications Conditions/Problems Problem/Diagnosis Awareness of Diagnosis Code (ICD-10) Onset Date (Start Date) Resolution Date (End Date) Status Source Comments PARKINSON'S DISEASE G20 10/16/19 23 12/12/2022 Resolved Fina Prather MUSCLE WEAKNESS (GENERALIZED) M62.81 10/16/19 23 Active Fina Prather WEAKNESS R53.1 10/16/19 23 Active Fina Prather OTHER ABNORMALITIES OF GAIT AND MOBILITY R26.89 08/04/19 22 Active Fina Prather UNSPECIFIED ABNORMALITIES OF GAIT AND MOBILITY R26.9 03/28/19 22 Active Fina Prather PARKINSON'S DISEASE WITHOUT DYSKINESIA, WITHOUT MENTION OF FLUCTUATIONS G20.A1 03/21/19 22 Active Fina Prather Procedures No Known Procedures
--- OUTSIDE RECORDS SUMMARY | 2024-06-16 16:09 | XMS_ITS | Clinical Summary ---
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
--- OUTSIDE RECORDS SUMMARY | 2024-06-16 16:09 | XMS_ITS | Referral Summary ---
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
--- OUTSIDE RECORDS SUMMARY | 2024-06-16 16:09 | XMS_ITS | Clinical Summary ---
Author Organization [facility] Address [address] [place] [address] Care Team Providers Care Rn First Assist Name Role Phone Michael Ford MD Primary Care Provider [phone] Source Comments [facility],non-owned Affiliates and Associated Physician Practices is amultiple site organization consisting of ambulatory clinics and hospital sitesin [place], [place], [place] and [place]. This disclosure is being madepursuant to the Care Everywhere program and may not contain all information available regarding this patient. Last updated 17.[facility] Allergies Active Allergy Reactions Criticality Noted Date [...] (06/20/2020): Added automatically from request for surgery [id number] Orthostatic hypotension 12/16/2016 Overview (01/12/2020): Added automatically from request for surgery [id number] Parkinson's disease 11/27/2014 GERD (gastroesophageal reflux disease) 3 Encounters Date Type Department Care Team Description 06/08/2024 Telephone [facility] - Neurology [address] [place] [phone] Zak Mathews APRN-CNP Referral 06/07/2024 Orders Only [facility]rology [address] [place] [phone] Zak Mathwes APRN-CNP Abnormal EEG 06/07/2024 Telephone [facility] [address] [place] [phone] Zak Mathews APRN-CNP Results (EEG) 05/31/2024 1:02 PM CDT - 05/31/2024 11:59 PM CDT Hospital Encounter [facility] EEG/EMG [address] [place] [address] Unknown, Provider Discharge Disposition: Home or Self Care 05/31/2024 Travel 05/25/2024 11:00 AM CDT Office Visit [facility] - Neurology [address] [place] [phone] Zak Mathews APRN-CNP Spell of loss of consciousness (Primary Dx); Parkinson's disease with dyskinesia and fluctuating manifestations 05/25/2024 Travel 05/24/2024 1:30 PM CDT Office Visit [facility] - GI [address] [place] [phone] Getachew Scott MD Full incontinence of feces (Primary Dx); Overflow diarrhea; Other constipation 05/24/2024 Travel 04/12/2024 3:30 PM PILLOW CLEANER Office Visit [facility] - Neurology [address] [place] [phone] Zak Mathews APRN-CNP Parkinson's disease with dyskinesia and fluctuating manifestations (Primary Dx) 04/12/2024 Travel 03/28/2024 Refill [facility] - Neurology [address] [place] [phone] Zak Mathews APRN-CNP Refill Request from Last 3 Months Immunizations Name Administration Dates Next Due Gregory Environmental primary monoval ent 12+ yr 0.3mL Purple [...] Oxygen Concentration 21% 03/25/2020 3 :00 PM PILLOW CLEANER Weight 65.7 kg (144 lb 12.8 oz) 025 10:58 AM CDT Height 160 cm (5' 3 ) 05/25/2024 10:58 AM CDT Body Mass Index 25.65 05/25/2024 10:58 AM CDT Plan of Treatment Upcoming Encounters Date Type Department Care Team (Late st Contact Info) Description 10/11/2024 2:00 PM CDT Office Visit [facility] - Neurology [address] [place] [phone] Zak Mathews APRN-CNP [address] [place] [address] [place] [phone] 11/22/2024 2:30 PM CDT Office Visit [facility] - GI [address] [place] [address], [place] [phone] Getachew Scott MD [address] [place] [phone] Health Maintenance Due Date Last Done Comments [...] last dose Medical Devices Implanted Type Area Plate Furnace Operator Device Identifier Shelf Expiration Date Model / Serial / Lot Slnt Dura Duraseal Pg Trilysine Amine 5 Implanted:Qty: 1 on 03/25/2020 by Jai Caballero MD at [facility] [employer] Elana 05/12/[id number] / / [id number] Slnt Dura Duraseal Pg Trilysine Amine 5 Implanted:Qty: 1 on 03/25/2020 by Jai Caballero MD at [facility] Left: Brain [employer] Elana 12/12/[id number] / / [id number] [employer] Infinity Dbs System Implanted:Qty: 1 on 03/25/2020 by Jai Caballero MD at [facility] Left: Brain [employer] 03/27/2021 6172 / [id number] / Marcelo Spnl 140mm 6.35mm Ti Str Implanted:Qty: 1 on 03/25/2020 by Jean Carlos Fierro MD at [facility] Left: Brain [employer] 06/19/2021 6010 / / [id number] [employer] Infinity Dbs System Implanted:Qty: 1 on 04/01/2020 by Shannon Valero MD at [facility] Left: Neck 06/01/2021 6371 / [id number] / Infinity 7 Implantable Pulse Generator Implanted:Qty: 1 on 04/01/2020 by Shnanon Valero MD at [facility] Left: Chest Wall 05/30/2021 6662 / [id number] / [employer] Infinity Dbs System Implanted:Qty: 1 on 07/18/2021 by Jai Caballero MD at [facility] Right: Brain [employer] 10/31/2022 6372 / [id number] / Slnt Dura Duraseal Pg Trilysine Amine 5 Implanted:Qty: 1 on 07/18/2021 by Jai Caballero MD at [facility] Right: Brain [employer] Elana 12/12/2022 [id number] / / [id number] Cranial [place]on Hole Cover Implanted:Qty: 1 on 07/18/2021 by Jai Caballero MD at [facility] Right: Cranial [employer] 05/21/2023 6010 / / [id number] [employer] Infinity Dbs System Implanted:Qty: 1 on 07/18/2021 by Jai Caballero MD at [facility] Right: Brain [employer] 09/19/2022 6172 / / [id number] Procedures Procedure Name Priority Date/Time Associated Diagnosis Comments PROC DEEP BRAIN STIMULATOR Routine 05/25/2024 2:12 PM CDT Parkinson's disease with dyskinesia and fluctuating manifestations [place] ANALYZE NEUROSTIM NO PROG Routine 04/13/2024 10:35 AM PILLOW CLEANER Parkinson's disease with dyskinesia and fluctuating manifestations from Last 3 Months Results * PROC DEEP BRAIN STIMULATOR (05/25/2024 2:12 PM CDT) Paul Zak aMthews MEDICAL PRACTITIONERS-LINEN ROOM CUSTODIAN - 05/25/2024 2:12 PM CDT SettchloeEthanlucasbridger, MEDICAL PRACTITIONERS-LINEN ROOM CUSTODIAN 05/25/2024 2:14 PM Please see office notes for documentation Thanks Karpagam Settu MEDICAL PRACTITIONERS-LINEN ROOM CUSTODIAN PROCEDURE/MINOR SURGICAL ORDERABLES * [place] ANALYZE NEUROSTIM NO PROG (04/13/2024 10:35 AM PILLOW CLEANER) Paul Zak Mathews MEDICAL PRACTITIONERS-LINEN ROOM CUSTODIAN - 04/13/2024 10:35 AM PILLOW CLEANER Zak Mathews, MEDICAL PRACTITIONERS-LINEN ROOM CUSTODIAN 04/13/2024 1:13 PM Please see office notes for documentation Thanks Karpagam Settu MEDICAL PRACTITIONERS-LINEN ROOM CUSTODIAN PROCEDURE/MINOR SURGICAL ORDERABLES from Last 3 Months Advance Directives Documents on File Type Date Recorded Patient Global Supply Chain Vice President Expl anation Adv Directive/Living Will/POA 05/21/2021 11:36 [...] 8:57 AM 04/01/2020 8:57 AM Care Teams Rn First Assist Relationship Specialty Start Date End Date Michael Ford MD [address] [place] [phone] PCP - General Family Medicine 10/05/21
--- OUTSIDE RECORDS SUMMARY | 2024-06-16 16:09 | XMS_ITS | Encounter Summary ---
Author Organization [facility] Address [address] [facility] [place] [address] Care Team Providers Care Allied Health Professional Name Role Phone Fina Prather MD Primary Care Provider + [phone] Brenda Lee MD Primary Care Provider [phone] Michael Ford MD Primary Care Provider + [phone] Fina Prather MD Primary Care Provider + [phone] Michael Ford MD Primary Care Provider + [phone] Encounter Details Date Type Department Care Team (Late st Contact Info) Description 03/28/2020 Preop Outreach [facility] [address] [place] [phone] Isaías Blevins MD [address] [place] [address] Social History Tobacco Use Types Packs/Day Years [...] COVID-19? No / Unsure 03/21/2020 10:00 AM MAKE UP GIRL documented as of this encounter Plan of Treatment Upcoming Encounters Date Type Department Care Team (Late st Contact Info) Description 10/11/2024 2:00 PM CDT Office Visit [facility] Neurology [address] [place] [address], [place] [phone] Zak Mathews, FACILITIES ASSISTANT-SKID ADZER [address] [place] [address] [place] [phone] 11/22/2024 2:30 PM CDT Office Visit [facility] GI [address] [place] [address], [place] [phone] Getachew Scott MD [address] [place] [phone] documented as of this encounter Visit Diagnoses Not on filedocumented in this encounter Additional Health Concerns Infection Onset Date Last Indicated Resolved Time COVID-19 Under Investigation 03/28/2020 03/28/2020 03/28/2020 10:23 PM MAKE UP GIRL COVID-19 Under Investigation 10/05/2021 10/05/2021 10/05/2021 6:44 PM CDT documented as of this encounter Care Teams Allied Health Professional Relationship Specialty Start Date End Date Fina Prather MD PCP - General 12/01/19 05/16/21 Brenda Lee MD [address] [place] [address] PCP - General Family Medicine 05/17/21 05/26/21 Michael Ford MD [address] [phone] PCP - General Family Medicine 06/09/21 06/15/21 Fina Prather MD PCP - General 06/16/21 09/10/21 Michael Ford MD [address] [place] [phone] PCP - General Family Medicine 10/05/21 documented as of this encounter
[2024-06-16 16:11] LABS: Add Urine Microscopic? YES; Appearance Urine Clear (Clear); Bacteria Urine None Seen /hpf; Bilirubin Urine Negative (Negative); Blood Urine Negative (Negative); Color Urine Yellow (Yellow); Glucose Urine UA Negative (Negative); Hyaline Casts Urine Present /lpf; Ketones Urine Trace mg/dL (Negative); Leukocyte Esterase Ur Negative LEU/UL (Negative); Need Manual Microscopic Reviewed; Nitrate Urine Negative (Negative); Protein Urine Trace mg/dL (Negative); RBC Urine 0-2 /hpf (0-2); Specific Grav Ur 1.017 (1.001-1.035); Squamous Epithelial Cell Urine None Seen /hpf (Few); WBC Urine 0-5 /hpf (0-3)
[2024-06-16] MEDS: SODIUM CHLORIDE 0.9% IV 500 ML 999 ML IV CONT (16:26)
[2024-06-16 16:34] LABS: Magnesium 1.7 mg/dL (1.6-2.3)
[2024-06-16] MEDS: MAGNESIUM SULF 2 GM/WATER 50ML 2 GM/50 ML BAG IVPB (17:27)
== END 2024-06-16 18:13 | disposition home or self-care (01) ==
PROVIDERS: Emergency Provider Physician Assistant; PCP Family Medicine
DX: I95.1 Orthostatic hypotension (principal); S76.011A Strain of muscle, fascia and tendon of right hip, initial encounter; G20.A1 Parkinson's disease without dyskinesia, without mention of fluctuations; I50.9 Heart failure, unspecified; I27.20 Pulmonary hypertension, unspecified; N18.9 Chronic kidney disease, unspecified; E03.9 Hypothyroidism, unspecified; K58.9 Irritable bowel syndrome, unspecified; N39.3 Stress incontinence (female) (male); M81.0 Age-related osteoporosis without current pathological fracture; M16.0 Bilateral primary osteoarthritis of hip; F41.9 Anxiety disorder, unspecified; F32.A Depression, unspecified; Q64.8 Other specified congenital malformations of urinary system; Z96.82 Presence of neurostimulator; Z87.442 Personal history of urinary calculi; R94.31 Abnormal electrocardiogram [ECG] [EKG]; I51.7 Cardiomegaly; I45.9 Conduction disorder, unspecified; Z86.0100 Personal history of colon polyps, unspecified; Z90.710 Acquired absence of both cervix and uterus; Z90.49 Acquired absence of other specified parts of digestive tract; Z79.899 Other long term (current) drug therapy; W18.39XA Other fall on same level, initial encounter
CPT/HCPCS: 36415; 70450; 71046; 73502; 80053; 81001; 83735; 83880; 84484; 85025; 85055; 93005; 96365; 99284; J3475; J7040

== ENCOUNTER 2024-06-17 11:02 | Outpatient (CLI) | payer MEDICARE, OTHER, SELFPAY ==
--- NOTE | ~2024-06-17 | MM_ITS ---
EXAMINATION: MM screening sara BI w nicol HISTORY: Screening TECHNIQUE: Craniocaudal and mediolateral oblique 3-D tomosynthesis images were obtained and synthetic 2-D images were generated. CAD analysis was submitted and interpreted. COMPARISON: Comparison to multiple prior studies sequentially, with oldest reviewed study dated 07/2014. BREAST PARENCHYMAL COMPOSITION: Not dense: There are scattered areas of fibroglandular density. FINDINGS: There is no evidence of suspicious mass, calcification, or architectural distortion to sugg est malignancy in either breast. There has been no suspicious interval change. IMPRESSION: 1. No mammographic evidence of malignancy. 2. Recommend routine screening mammography in one year. BI-RADS Category 1: Negative Reviewed, dictated and finalized at location A.
--- OUTSIDE RECORDS SUMMARY | 2024-06-17 11:07 | XMS_ITS | Continuity of Care Document ---
Author Organization [employer] [place] Address [address] [place] [address] Phone Care Team Providers Care Stacking Machine Operator Name Role Phone Aletha Pao PERSON Unavailable [...] Diagnoses Date Provider Providers Copied on Encounter [facility] [facility] [place], [place], [address], [place] tel:[phone] [place] No Information [address] [facility], [address], [place], [address], [place]. tel:[phone] [facility], [place], [place], [address], [place] tel:[phone] [facility] Oth symptoms and signs involving the musculoskeletal systemCervicalg iaAbnormal postureUnspecif ied inflammatory spondylopathy, cervical regionParkinson 's disease 8 Aletha Pao. [address] [place] [address], [address], [place], [place], [facility], [place]. tel:[phone] [facility], [place], [place], [address], [place] tel:[phone] [facility] Ot symptoms and signs involving the musculoskeletal systemCervicalg iaAbnormal postureUnspecif ied inflammatory spondylopathy, cervical regionParkinson 's disease 8 Aletha Pao. [address] [place] [address], [address], [place], [facility], [place]. tel:[phone] [facility] [address], [place], [place], [address], [place] tel:[phone] [place] Oth symptoms and signs involving the musculoskeletal systemCervicalg iaAbnormal postureUnspecif ied inflammatory spondylopathy, cervical regionParkinson 's disease 8 Aletha Pao. [address] [place] [address], [address], [place], [address], [place]. tel:[phone] [facility] [address], [place], [place], [address], [place] tel:[phone] [facility] Ot symptoms and signs involving the musculoskeletal systemCervicalg iaAbnormal postureUnspecif ied inflammatory spondylopathy, cervical regionParkinson 's disease 8 [place] Pao. [address] [place] [address], [address], [place], [address], [place]. tel:[phone] [facility], [place], [place], [address], [place] tel:[phone] [facility] CervicalgiaOth symptoms and signs involving the musculoskeletal systemAbnormal postureUnspecif ied inflammatory spondylopathy, cervical regionParkinson 's disease 8 Threlkeld Ratna. . [facility], [place], [place], [address], tel:[phone] [facility] CervicalgiaOth symptoms and signs involving the musculoskeletal systemAbnormal postureUnspecif ied inflammatory spondylopathy, cervical regionParkinson 's disease 8- 8 Muehl Farheen. [address] [place] [address], [address], [place] [address], . tel:[phone] [facility] [address], [place], [place], [address], tel:[phone] [facility] CervicalgiaOth symptoms and signs involving the musculoskeletal systemAbnormal postureUnspecif ied inflammatory spondylopathy, cervical regionParkinson 's disease 8 [place] Pao. [address] [place] [address], [address], [place], [facility], . tel:[phone] [facility] [address] [place] [address], [place], [place], [address], tel:[phone] [facility] CervicalgiaOth symptoms and signs involving the musculoskeletal systemAbnormal postureUnspecif ied inflammatory spondylopathy, cervical regionParkinson 's disease 8 Aletha Pao. [address] [place] [address], [address], [place], [facility], . tel:[phone] [facility] [address] [place] [address], [place], [place], [address], tel:[phone] [facility] CervicalgiaOth symptoms and signs involving the musculoskeletal systemAbnormal postureUnspecif ied inflammatory spondylopathy, cervical regionParkinson 's disease 7 8 [place] Pao. [address] [place] [address], [address], [place] [address], . tel:[phone] [facility] [address] [facility] [address], [place], [place], [address], tel:[phone] [place] CervicalgiaOth symptoms and signs involving the musculoskeletal systemAbnormal postureUnspecif ied inflammatory spondylopathy, cervical regionParkinson 's disease 4-201 8 Aletha Pao. [address] [place] [address], [address], [place], [address], [place]. tel:[phone] [facility] [address], [place], [place], [address], [place] tel:[phone] [place] CervicalgiaOth symptoms and signs involving the musculoskeletal systemAbnormal postureUnspecif ied inflammatory spondylopathy, cervical regionParkinson 's disease 8-201 8 Aletha Pao. [address] [place] [address], [address], [place], [address], [place]. tel:[phone] [facility] [address], [place], [place], [address], [place] tel:[phone] [place] CervicalgiaOth symptoms and signs involving the musculoskeletal systemAbnormal postureUnspecif ied inflammatory spondylopathy, cervical regionParkinson 's disease 6-201 8 Aletha Pao. [address] [place] [address], [address], [place], [address], [place]. tel:[phone] [facility] [address], [place], [place], [address], [place] tel:[phone] [facility] CervicalgiaOth symptoms and signs involving the musculoskeletal systemAbnormal postureUnspecif ied inflammatory spondylopathy, cervical regionParkinson 's disease 3-201 8 Aletha Pao. [address] [place] [address], [address], [place], [address], [place]. tel:[phone] [facility] [address], [place], [place], [address], [place] tel:[phone] [place] No Information 0 9-201 8 [place] Pao. [address] [place] [address], [address], [place], [address], [place]. tel:[phone] [facility], [place], [place], [address], [place] tel:[phone] [place] No Information 8 [place] Pao. [address] [place] [address], [address], [place], [address], [place]. tel:[phone], [place], [place], [address], [place] tel:[phone] [place] No Information 2 8 Aletha Pao. [address] [place] [address], [address], [place], [address], [place]. tel:[phone] [facility] [address], [place], [place], [address], [place] tel:[phone] [place] No Information 8 Aletha Pao. [address] [place] [address], [address], [place], [address], [place]. tel:[phone] [facility] [address], [place], [place], [address], [place] tel:[phone] [place] No Information 8 [place] Pao. [address] [place] [address], [address], [place], [address], [place]. tel:[phone] [facility] [address], [place], [place], [address], [place] tel:[phone] [place] No Information 8 [place] Pao. [address] [place] [address], [address], [place], [address], [place]. tel:[phone] [facility] [address], [place], [place], [address], [place] tel:[phone] [place] No Information 8 [place] Pao. [address] [place] [address], [address], [place], [address], [place]. tel:[phone] [facility] [address], [place], [address], [place] tel:[phone] [place] No Information 8 Aletha Pao. [address] [place] [address], [address], [place], [address], [place]. tel:[phone] [address], [place], [place], [address], [place] tel:[phone] [place] No Information 0 8-201 8 Aletha Pao. [address] [place] [address], [address], [place], [address], [place]. tel:[phone] [address], [place], [place], [address], [place] tel:[phone] [place] No Information 0 5-201 8 Aletha Pao. [address] [place] [address], [address], [place], [address], [place]. tel:[phone] [address], [place], [place], [address], [place] tel:[phone] [place] No Information 0 2-201 8 Aletha Pao. [address] [place] [address], [address], [place], [address], [place]. tel:[phone] [address], [place], [place], [address], [place] tel:[phone] [place] No Information Feb-2 1-201 7 Aletha Pao. [address] [place] [address], [address], [place], [address], [place]. tel:[phone] [address], [place], [place], [address], [place] tel:[phone] [place] No Information Feb-1 8-201 7 Aletha Pao. [address] [place] [address], [address], [place], [address], [place]. tel:[phone] [address], [place], [place], [address], [place] tel:[phone] [place] No Information Feb-1 5-201 7 [place] Pao. [address] [place] [address], [address], [place], [address], [place]. tel:[phone] [facility] [address], [place], [place], [address], tel:[phone] [place] No Information 1-201 7 Aletha Pao. [address] [place] [address], [address], [place], [facility], . tel:[phone], [place], [place], [address], tel:[phone] [place] No Information Feb-0 8-201 7 [place] Pao. [address] [place] [address], [address], [place], [facility], . tel:[phone] [facility], [address] [place], [place] [address], [place], [place], [address], tel:[phone] [place] No Information 0 4-201 7 Aletha Pao. [address] [place] [address], [address], [place], [facility], [place]. tel:[phone] [facility] [address], [place], [place], [address], [place] tel:[phone] [place] CervicalgiaOth symptoms and signs involving the musculoskeletal systemAbnormal posturePostural kyphosis, thoracic regionSpondylos is w/o myelopathy or radiculopathy, cervical regionParkinson 's disease 3 0-201 7 Aletha Pao. [address] [place] [address], [address], [place], [facility], [place]. tel:[phone] [facility] [address], [place], [place], [address], [place] tel:[phone] [place] No Information 5-201 5 Eleazar Ella. [address] [place] [address], [address], [place], [facility], [place]. tel:[phone] [facility] [address], [place], [place], [address], [place] tel:[phone] [place] No Information Apr-1 3-201 5 Eleazar Ella. [address] [place] [address], [address], [place], [address], [place]. tel:[phone], [place], [address], [place] tel:[phone] [place] No Information Apr-1 0-201 5 Eleazar Ella. [address] [place] [address], [address], [place], [address], [place]. tel:[phone], [place], [place], [address], [place] tel:[phone] [place] No Information Apr-0 8-201 5 Eleazar Ella. [address] [place] [address], [address], [place], [address], [place]. tel:[phone], [place], [place], [address], [place] tel:[phone] [place] No Information Apr-0 6-201 5 Eleazar Ella. [address] [place] [address], [address], [place], [address], [place]. tel:[phone], [place], [place], [address], [place] tel:[phone] [place] No Information Apr-0 3-201 5 Eleazar Ella. [address] [place] [address], [address], [place], [address], [place]. tel:[phone], [place], [place], [address], [place] tel:[phone] [place] No Information Apr-0 1-201 5 Eleazar Ella. [address] [place] [address], [address], [place], [address], [place]. tel:[phone], [place], [address], [place] tel:[phone] [place] No Information Mar-3 0-201 5 Eleazar Ella. [address] [place] [address], [address], [place], [address], [place]. tel:[phone] [address], [place], [place], [address], [place] tel:[phone] [facility] SciaticaPain in joint involving pelvic region and thighGENERALIZE D PAIN Mar-2 6-201 5 Eleazar Jaramillo. [address] [place] [address], [address], [place], [address], [place]. tel:[phone] [address], [place], [address], [place] tel:[phone] Haiku No Information Sep-0 8-201 4 Garcia Keshia. [address] [place] [address], [address], [place], [address], [place]. tel:[phone] [address], [place], [place], [address], [place] tel:[phone] Ha[place] No Information Sep-0 5-201 4 Garcia Keshia. [address] [place] [address], [address], [place], [address], [place]. tel:[phone] [address], [place], [place], [address], [place] tel:[phone] Haiku No Information Sep-0 4-201 4 Garcia Keshia. [address] [place] [address], [address], [place], [address], [place]. tel:[phone] [address], [place], [place], [address], [place] tel:[phone] [place] No Information Sep-0 2-201 4 Garcia Keshia. [address] [place] [address], [address], [place], [address], [place]. tel:[phone] [address], [place], [address], [place] tel:[phone] [place] No Information Aug-2 9-201 4 Garcia Keshia. [address] [place] [address], [address], [place], [facility], . tel:[phone] [place] [address], [place], [place], [address], tel:[phone] Haiku No Information 4 Garcia Keshia. [address] [place] [address], [facility] [address], [place], [facility], . tel:[phone] [facility] [address] [place] [address] [address], [place], [place], [address], tel:[phone] Ha[place] No Information 4 Garcia Keshia. [address] [place] [address], [facility] [address], [place], [facility], . tel:[phone], [address], tel:[phone] [place] No Information 4 Garcia Keshia. [address] [place] [address], [address], [place], [facility], [place]. tel:[phone], [address], tel:[phone] [place] Pain in joint involving shoulder region 4 Garcia Keshia. [address] [place] [address], [facility] [address], [place], [facility], . tel:[phone] Family History Family Member Type Diagnosis Age At Onset No Information Payers Payer name Insurance type Covered libertarian ID Authorellena titigre(s) [place] [id number] [employer] CI [id number] Social History Type Description Quantity Date Captured [...]
--- OUTSIDE RECORDS SUMMARY | 2024-06-17 11:07 | XMS_ITS | Clinical Summary ---
Author Organization [facility] Address [address] [place] [address] Care Team Providers Care Pantry Attendant Name Role Phone Michael Ford MD Primary Care Provider [phone] Source Comments [facility],non-owned Affiliates and Associated Physician Practices is amultiple site organization consisting of ambulatory clinics and hospital sitesin [place], [place] and [place]. This disclosure is being madepursuant to the Care Everywhere program and may not contain all information available regarding this patient. Last updated 17.[facility] Allergies Active Allergy Reactions Criticality Noted Date [...] (06/20/2020): Added automatically from request for surgery [id number] Orthostatic hypotension 12/16/2016 Overview (01/12/2020): Added automatically from request for surgery [id number] Parkinson's disease 11/27/2014 GERD (gastroesophageal reflux disease) 3 Encounters Date Type Department Care Team Description 06/08/2024 Telephone [facility] - Neurology [address] [place] [phone] Zak Mathews APRN-CNP Referral 06/07/2024 Orders Only [facility]rology [address] [place] [phone] Zak Mathews APRN-CNP Abnormal EEG 06/07/2024 Telephone [facility]rology [address] [place] [phone] Zak Mathews APRN-CNP Results (EEG) 05/31/2024 1:02 PM CDT - 05/31/2024 11:59 PM CDT Hospital Encounter [facility] EEG/EMG [address] [place] [address] Unknown, Provider Discharge Disposition: Home or Self Care 05/31/2024 Travel 05/25/2024 11:00 AM CDT Office Visit [facility] - Neurology [address] [place] [phone] Zak Mathews APRN-CNP Spell of loss of consciousness (Primary Dx); Parkinson's disease with dyskinesia and fluctuating manifestations 05/25/2024 Travel 05/24/2024 1:30 PM CDT Office Visit [facility] - GI [address] [place] [phone] Getachew Scott MD Full incontinence of feces (Primary Dx); Overflow diarrhea; Other constipation 05/24/2024 Travel 04/12/2024 3:30 PM NETWORK SUPPORT ENGINEER Office Visit [facility] - Neurology [address] [place] [phone] Zak Mathews APRN-CNP Parkinson's disease with dyskinesia and fluctuating manifestations (Primary Dx) 04/12/2024 Travel 03/28/2024 Refill [facility] - Neurology [address] [place] [phone] Zak Mathews APRN-CNP Refill Request from Last 3 Months Immunizations Name Administration Dates Next Due TiqIQ primary monoval ent 12+ yr 0.3mL Purple [...] Oxygen Concentration 21% 03/25/2020 3 :00 PM NETWORK SUPPORT ENGINEER Weight 65.7 kg (144 lb 12.8 oz) 025 10:58 AM CDT Height 160 cm (5' 3 ) 05/25/2024 10:58 AM CDT Body Mass Index 25.65 05/25/2024 10:58 AM CDT Plan of Treatment Upcoming Encounters Date Type Department Care Team (Late st Contact Info) Description 10/11/2024 2:00 PM CDT Office Visit [facility] - Neurology [address] [place] [phone] Zak Mathews APRN-CNP [address] [place] [address] [place] [phone] 11/22/2024 2:30 PM CDT Office Visit [facility] - GI [address] [place] [address], [place] [phone] Getachew Scott MD [address] [place] [phone] Health Maintenance Due Date Last Done Comments [...] last dose Medical Devices Implanted Type Area Breakfast Supervisor Device Identifier Shelf Expiration Date Model / Serial / Lot Slnt Dura Duraseal Pg Trilysine Amine 5 Implanted:Qty: 1 on 03/25/2020 by Jai Caballero MD at [facility] Integra [employer] Elana 05/12/[id number] / / [id number] Slnt Dura Duraseal Pg Trilysine Amine 5 Implanted:Qty: 1 on 03/25/2020 by Jai Caballero MD at [facility] Left: Brain Integra [employer] Elana 12/12/[id number] / / [id number] [employer] Infinity Dbs System Implanted:Qty: 1 on 03/25/2020 by Jai Caballero MD at [facility] Left: Brain [employer] 03/27/2021 6172 / [id number] / Marcelo Spnl 140mm 6.35mm Ti Str Implanted:Qty: 1 on 03/25/2020 by Jean Carlos Fierro MD at [facility] Left: Brain [employer] 06/19/2021 6010 / / [id number] [employer] Infinity Dbs System Implanted:Qty: 1 on 04/01/2020 by Shannon Valero MD at [facility] Left: Neck 06/01/2021 6371 / [id number] / Infinity 7 Implantable Pulse Generator Implanted:Qty: 1 on 04/01/2020 by Shannon Valero MD at [facility] Left: Chest Wall 05/30/2021 6662 / [id number] / [employer] Inf[employer] Dbs System Implanted:Qty: 1 on 07/18/2021 by Jai Caballero MD at [facility] Right: Brain [employer] 10/31/2022 6372 / [id number] / Slnt Dura Duraseal Pg Trilysine Amine 5 Implanted:Qty: 1 on 07/18/2021 by Jai Caballero MD at [facility] Right: Brain Integra [employer] Elana 12/12/2022 [id number] / / [id number] Cranial [place] Cover Implanted:Qty: 1 on 07/18/2021 by Jai Caballero MD at [facility] Right: Cranial [employer] 05/21/2023 6010 / / [id number] [employer] Infinity Dbs System Implanted:Qty: 1 on 07/18/2021 by Jai Caballero MD at [facility] Right: Brain [employer] 09/19/2022 6172 / / [id number] Procedures Procedure Name Priority Date/Time Associated Diagnosis Comments PROC DEEP BRAIN STIMULATOR Routine 05/25/2024 2:12 PM CDT Parkinson's disease with dyskinesia and fluctuating manifestations PA ANALYZE NEUROSTIM NO PROG Routine 04/13/2024 10:35 AM NETWORK SUPPORT ENGINEER Parkinson's disease with dyskinesia and fluctuating manifestations from Last 3 Months Results * PROC DEEP BRAIN STIMULATOR (05/25/2024 2:12 PM CDT) Paul Zak Mathews CAMERA OPERATOR-TEXT TRANSCRIBER - 05/25/2024 2:12 PM CDT SettchloeEthanlucasbridger, CAMERA OPERATOR-TEXT TRANSCRIBER 05/25/2024 2:14 PM Please see office notes for documentation Thanks Karpagam Settu CAMERA OPERATOR-TEXT TRANSCRIBER PROCEDURE/MINOR SURGICAL ORDERABLES * PA ANALYZE NEUROSTIM NO PROG (04/13/2024 10:35 AM NETWORK SUPPORT ENGINEER) Paul Zak Mathews CAMERA OPERATOR-TEXT TRANSCRIBER - 04/13/2024 10:35 AM NETWORK SUPPORT ENGINEER Zak Mathews, CAMERA OPERATOR-TEXT TRANSCRIBER 04/13/2024 1:13 PM Please see office notes for documentation Thanks Karpagam Settu CAMERA OPERATOR-TEXT TRANSCRIBER PROCEDURE/MINOR SURGICAL ORDERABLES from Last 3 Months Advance Directives Documents on File Type Date Recorded Patient Admitting Office Escort Expl anation Adv Directive/Living Will/POA 05/21/2021 11:36 [...] 8:57 AM 04/01/2020 8:57 AM Care Teams Pantry Attendant Relationship Specialty Start Date End Date Michael Ford MD [address] [place] [phone] PCP - General Family Medicine 10/05/21
--- OUTSIDE RECORDS SUMMARY | 2024-06-17 11:07 | XMS_ITS | Patient Health Record ---
Author Organization [facility] - So [facility] Address [address] [place] [address] Support Name Relationship Address Phone Nydia Barraza Emergency Contact [address] [place] [address] Karyna Kemp Guarantor Unknown Allergies No Known Allergies Reason For Referral [...] Date Coverage End Date Medicare [address] [address] [place] [address] [id number] Karyna Kemp Self - patient is the insured Medical (General) History Medical History History ICD Code Parkinson's Disease Thyroid Disease Surgical History Surgery Date(Month/Year) Gallbladder Surgery Hysterectomy
--- OUTSIDE RECORDS SUMMARY | 2024-06-17 11:07 | XMS_ITS | Encounter Summary ---
Author Organization [facility] Address [address] [place] [address] Care Team Providers Care Clearance Diver Name Role Phone Fina Prather MD Primary Care Provider + [phone] Brenda Lee MD Primary Care Provider [phone] Michael Ford MD Primary Care Provider + [phone] Fina Prather MD Primary Care Provider + [phone] Michael Ford MD Primary Care Provider + [phone] Encounter Details Date Type Department Care Team (Late st Contact Info) Description 03/28/2020 Preop Outreach [facility] [address] [place] [id number] Isaías Blevins MD [address] [place] [address] Social History Tobacco Use Types Packs/Day Years [...] COVID-19? 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 documented as of this encounter Plan of Treatment Upcoming Encounters Date Type Department Care Team (Late st Contact Info) Description 10/11/2024 2:00 PM CDT Office Visit [facility] - Neurology [address] [place] [address], [place] [address] Zak Mathews, PERFORMANCE TEST CONSULTANT-ENVIRONMENTAL INTERN [address] [place] [address] [place] [address] 11/22/2024 2:30 PM CDT Office Visit [facility] - GI [address] [place] [address], [place] [phone] Getacehw Scott MD [address] [place] [id number] documented as of this encounter Visit Diagnoses Not on filedocumented in this encounter Additional Health Concerns Infection Onset Date Last Indicated Resolved Time COVID-19 Under Investigation 03/28/2020 03/28/2020 03/28/2020 10:23 PM MIRROR INSTALLER COVID-19 Under Investigation 10/05/2021 10/05/2021 10/05/2021 6:44 PM CDT documented as of this encounter Care Teams Clearance Diver Relationship Specialty Start Date End Date Fina Prather MD PCP - General 12/01/19 05/16/21 Brenda Lee MD [address] [place] [address] PCP - General Family Medicine 05/17/21 05/26/21 Michael Ford MD [address] [id number] PCP - General Family Medicine 06/09/21 06/15/21 Fina Prather MD PCP - General 06/16/21 09/10/21 Michael Ford MD [address] [place] [id number] PCP - General Family Medicine 10/05/21 documented as of this encounter
--- OUTSIDE RECORDS SUMMARY | 2024-06-17 11:08 | XMS_ITS | Clinical Summary ---
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
--- OUTSIDE RECORDS SUMMARY | 2024-06-17 11:08 | XMS_ITS | CONTINUITY OF CARE DOCUMENT ---
Author Name bart arriaga Address Unknown Organization [facility] Address [address] [place] [address] Phone [phone] Care Team Providers Care Tobacco Wrapping Machine Tender Name Role Phone bart arriaga Unavailable Unavailable INSURANCE PROVIDERS Payer name Policy type / Coverage type Perry red constitution party ID [employer] insurance company [id number] [id number]
--- OUTSIDE RECORDS SUMMARY | 2024-06-17 11:08 | XMS_ITS | Referral Summary ---
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
== END 2024-06-17 11:03 | disposition home or self-care (01) ==
PROVIDERS: PCP Family Medicine; Visit Provider Family Medicine
DX: Z12.31 Encounter for screening mammogram for malignant neoplasm of breast (principal)
CPT/HCPCS: 77063; 77067

== ENCOUNTER 2024-06-18 10:38 | Inpatient (IN) | payer MEDICARE, OTHER, SELFPAY ==
--- NOTE | ~2024-06-18 | CT_ITS ---
Procedure: CT hip LT wo con Ordering provider: Eber Jones MD History: . ? fracture . Comparison: None. Technique: Thin slice axial CT of the No IV contrast was given. Sagittal and coronal reformatted imag es were also obtained and reviewed. Radiation reduction technique utilized.The dose-length product wa s 212.26 mGy-cm. Findings: BONES: Left femoral neck fracture is seen extending to the lesser trochanter. No other fractures seen . JOINT SPACES: Moderate osteoarthritic changes. SOFT TISSUES: Soft tissue swelling seen around the proximal femur. IMPRESSION: Left femoral neck fracture extending to the lesser trochanter Reviewed, dictated and finalized at location A.
--- NOTE | ~2024-06-18 | XR_ITS ---
XR hip RT 2V w AP pelvis Ordering provider: Eber Jones MD History: . fall . Comparison: June 16, 2024 FINDINGS: BONES: No acute fracture or dislocation. HIP JOINT SPACES: Moderate osteoarthritis bilaterally. SACROILIAC JOINT SPACES/LUMBAR SPINE: The sacroiliac joint spaces are normal. Mild degenerative santamaria es of the visualized lower lumbar spine. PUBIC SYMPHYSIS: Normal. SOFT TISSUES: Calcifications projected over the kidney areas which may be stones. Calcific shadow see n on the right side may be a medication in the duodenum. IMPRESSION: No acute osseous abnormality pelvis and right hip. Bilateral moderate hip osteoarthritic changes. Highly suggestive left kidney stone. Reviewed, dictated and finalized at location A.
--- NOTE | ~2024-06-18 | XR_ITS ---
XR chest 2V Ordering provider: Eber Jones MD History: 79 years Female with . poss hip fx . Comparison: None. FINDINGS: MEDIASTINUM: The cardiac silhouette is slightly enlarged. Stimulator is projected over the left hemithorax. Congestive joann. LUNGS: No effusions or pneumothorax. Opacification in the left lung base medially which may indicate atelectasis versus pneumonia. Clinical correlation advised. OTHER: No free air under the diaphragm. Degenerative spine. IMPRESSION: Minimal opacification in the left lung base which may indicate atelectasis versus pneumonia. Follow-u p advised. Reviewed, dictated and finalized at location A. IMPRESSION: Minimal opacification in the left lung base which may indicate atelectasis vers us pneumonia. Follow-up advised.
--- NOTE | ~2024-06-18 | XR_ITS ---
HISTORY: FRACTURE COMPARISON: Reference is made to a CT examination of the left hip performed less than 4 hours elsa miller TECHNIQUE: 2 views of the left hip along with an AP view of the pelvis FINDINGS: Redemonstration of a left femoral neck fracture, better delineated on recent CT examination. Diffuse bony demineralization is also redemonstrated. Degenerative disease within the visualized portion of the lower lumbar spine. The right hip is unremarkable. IMPRESSION: Redemonstration of a left femoral neck fracture, better visualized on the CT examination performed less than 4 hours earlier. Reviewed, dictated and finalized at location A.
--- NOTE | ~2024-06-18 | CT_ITS ---
CT cervical spine wo con Ordering provider: Eber Jones MD History: . fall . Comparison: None. Technique: CT of the cervical spine was performed without contrast. Sagittal and coronal reformatted images were also obtained and reviewed. Automated exposure control and iterative reconstruction yariel hnique were employed. The dose-length product was 138.54 mGy-cm. FINDINGS: VERTEBRAE: No subluxation or acute fracture. The occipital condyles are intact. Degenerative changes of the spine. DISC SPACES: Narrowing of the disc C4-C5, C5-C6 and C6-C7. Multilevel facet joint disease. Multilevel uncovertebral joint osteoarthritic changes. Bilateral narrowing of the foramina at the level of C4-C 5 and C5-C6. PARASPINOUS SOFT TISSUES: Normal. IMPRESSION: No acute osseous abnormality cervical spine. Multilevel degenerative disc disease. Reviewed, dictated and finalized at location A.
--- NOTE | ~2024-06-18 | CT_ITS ---
CT brain wo con Ordering provider: Eber Jones MD History: 79 years Female with . fall . Comparison: June 16, 2024 Technique: CT of the head without contrast. Radiation reduction technique utilized.The dose-length pr oduct was 605.33 mGy-cm. FINDINGS: BRAIN PARENCHYMA AND CSF SPACES: Mild leukoaraiosis and diffuse cortical atrophy. Mild atheromatous d isease. DBS is noted bilaterally. No midline shift, mass effect or hemorrhage. The brain parenchyma and CSF spaces are otherwise normal. VISUALIZED PARANASAL SINUSES: Well aerated. MASTOIDS: Well aerated. BONES: The bones appear intact. SOFT TISSUES: Visualized nasopharynx is normal. Superficial soft tissues are normal. IMPRESSION: No acute intracranial findings. Reviewed, dictated and finalized at location A.
--- NOTE | ~2024-06-18 | XR_ITS ---
INTRAOPERATIVE FLUOROSCOPY: CLINICAL HISTORY: 79 years old Female; LEFT IT NAIL PROCEDURE COMMENTS: Limited intraoperative fluoroscopy of the left hip was performed. CUMULATIVE DOSE: 41 mGy FLUOROSCOPY TIME: 100 seconds FINDINGS/IMPRESSION: Please refer to operative note for further details. Reviewed, dictated and finalized at location A.
[2024-06-18 10:35] VITALS: PULSE 68; RESP 16; TEMP 36.4; O2SAT 100
[2024-06-18 10:42] VITALS: BP 182/92; PULSE 64; RESP 16; O2SAT 98
--- OUTSIDE RECORDS SUMMARY | 2024-06-18 10:53 | XMS_ITS | Continuity of Care Document ---
Author Organization [facility] Address [address] [place] [address] Phone Care Team Providers Care Geophysical Computer Name Role Phone Aletha Pao PERSON Unavailable [...] Diagnoses Date Provider Providers Copied on Encounter [facility] [facility], [place], [place], [id number], [place] tel:[phone] [place] No Information 8 Aletha Cedeno. [address] [facility], [address], [place], [address], [place]. tel:[phone] [facility], [place], [place], [address], [place] tel:[phone] [facility] Oth symptoms and signs involving the musculoskeletal systemCervicalg iaAbnormal postureUnspecif ied inflammatory spondylopathy, cervical regionParkinson 's disease 8 Aletha Pao. [address] [place] [address], [address], [place], [place], [facility], [place]. tel:[phone] [facility], [place], [address], [place] tel:[phone] [facility] Ot symptoms and signs involving the musculoskeletal systemCervicalg iaAbnormal postureUnspecif ied inflammatory spondylopathy, cervical regionParkinson 's disease 8 Aletha Pao. [address] [place] [address], [address], [place], [place], [facility], [place]. tel:[phone] [facility] [address], [place], [place], [address], [place] tel:[phone] [facility] Oth symptoms and signs involving the musculoskeletal systemCervicalg iaAbnormal postureUnspecif ied inflammatory spondylopathy, cervical regionParkinson 's disease 8 Aletha Pao. [address] [place] [address], [address], [place], [address], [place]. tel:[phone] [facility] [address], [place], [place], [address], [place] tel:[phone] [facility] Ot symptoms and signs involving the musculoskeletal systemCervicalg iaAbnormal postureUnspecif ied inflammatory spondylopathy, cervical regionParkinson 's disease 8 Monticello Pao. [address] [place] [address], [address], [place], [address], [place]. tel:[phone] [facility], [place], [place], [address], [place] tel:[phone] [facility] CervicalgiaOth symptoms and signs involving the musculoskeletal systemAbnormal postureUnspecif ied inflammatory spondylopathy, cervical regionParkinson 's disease 8 Threlkeld Ratna. . [facility], [place], [place], [address], tel:[phone] [facility] CervicalgiaOth symptoms and signs involving the musculoskeletal systemAbnormal postureUnspecif ied inflammatory spondylopathy, cervical regionParkinson 's disease 8- 8 Muehl Farheen. [address] [place] [address], [address], [place] [address], . tel:[phone] [facility] [address], [place], [address], tel:[phone] [facility] CervicalgiaOth symptoms and signs involving the musculoskeletal systemAbnormal postureUnspecif ied inflammatory spondylopathy, cervical regionParkinson 's disease 8 Monticello Pao. [address] [place] [address], [address], [place], [facility], . tel:[phone] [facility] [address] [place] [address], [place], [place], [address], tel:[phone] [facility] CervicalgiaOth symptoms and signs involving the musculoskeletal systemAbnormal postureUnspecif ied inflammatory spondylopathy, cervical regionParkinson 's disease 8 Aletha Pao. [address] [place] [address], [address], [place], [facility], . tel:[phone] [facility] [address] [place] [address], [place], [place], [address], tel:[phone] [facility] CervicalgiaOth symptoms and signs involving the musculoskeletal systemAbnormal postureUnspecif ied inflammatory spondylopathy, cervical regionParkinson 's disease 7 8 Monticello Pao. [address] [place] [address], [address], [place] [address], . tel:[phone] [facility] [address] [facility] [address], [place], [place], [address], tel:[phone] [facility] CervicalgiaOth symptoms and signs involving the musculoskeletal systemAbnormal postureUnspecif ied inflammatory spondylopathy, cervical regionParkinson 's disease 4-201 8 Aletha Pao. [address] [place] [address], [address], [place], [address], [place]. tel:[phone] [facility] [address], [place], [place], [address], [place] tel:[phone] [facility] CervicalgiaOth symptoms and signs involving the musculoskeletal systemAbnormal postureUnspecif ied inflammatory spondylopathy, cervical regionParkinson 's disease 8-201 8 Aletha Pao. [address] [place] [address], [address], [place], [address], [place]. tel:[phone] [facility] [address], [place], [place], [address], [place] tel:[phone] [facility] CervicalgiaOth symptoms and signs involving the musculoskeletal systemAbnormal postureUnspecif ied inflammatory spondylopathy, cervical regionParkinson 's disease 6-201 8 Aletha Pao. [address] [place] [address], [address], [place], [address], [place]. tel:[phone] [facility] [address], [place], [place], [address], [place] tel:[phone] [facility] CervicalgiaOth symptoms and signs involving the musculoskeletal systemAbnormal postureUnspecif ied inflammatory spondylopathy, cervical regionParkinson 's disease 3-201 8 Aletha Pao. [address] [place] [address], [address], [place], [address], [place]. tel:[phone] [facility] [address], [place], [place], [address], [place] tel:[phone] [facility] No Information 0 9-201 8 Monticello Pao. [address] [place] [address], [address], [place], [address], [place]. tel:[phone] [facility], [place], [place], [address], [place] tel:[phone] [facility] No Information 8 Monticello Pao. [address] [place] [address], [address], [place], [address], [place]. tel:[phone], [place], [place], [address], [place] tel:[phone] [facility] No Information 2 8 Aletha Pao. [address] [place] [address], [address], [place], [address], [place]. tel:[phone] [facility] [address], [place], [place], [address], [place] tel:[phone] [place] No Information 8 Aletha Pao. [address] [place] [address], [address], [place], [address], [place]. tel:[phone] [facility] [address], [place], [place], [address], [place] tel:[phone] [facility] No Information 8 Monticello Pao. [address] [place] [address], [address], [place], [address], [place]. tel:[phone] [facility] [address], [place], [place], [address], [place] tel:[phone] [facility] No Information 8 Monticello Pao. [address] [place] [address], [address], [place], [address], [place]. tel:[phone] [facility] [address], [place], [address], [place] tel:[phone] [facility] No Information 8 Monticello Pao. [address] [place] [address], [address], [place], [address], [place]. tel:[phone] [facility] [address], [place], [place], [address], [place] tel:[phone] [facility] No Information 8 Aletha Pao. [address] [place] [address], [address], [place], [address], [place]. tel:[phone] [address], [place], [place], [address], [place] tel:[phone] [facility] No Information 0 8-201 8 Aletha Pao. [address] [place] [address], [address], [place], [address], [place]. tel:[phone] [address], [place], [place], [address], [place] tel:[phone] [facility] No Information 0 5-201 8 Aletha Pao. [address] [place] [address], [address], [place], [address], [place]. tel:[phone] [address], [place], [place], [address], [place] tel:[phone] [facility] No Information 0 2-201 8 Aletha Pao. [address] [place] [address], [address], [place], [address], [place]. tel:[phone] [address], [place], [place], [address], [place] tel:[phone] [facility] No Information Feb-2 1-201 7 Aletha Apo. [address] [place] [address], [address], [place], [address], [place]. tel:[phone] [address], [place], [place], [address], [place] tel:[phone] [facility] No Information Feb-1 8-201 7 Aletha Pao. [address] [place] [address], [address], [place], [address], [place]. tel:[phone] [address], [place], [place], [address], [place] tel:[phone] [facility] No Information Feb-1 5-201 7 Monticello Pao. [address] [place] [address], [address], [place], [address], [place]. tel:[phone] [facility] [address], [place], [place], [address], tel:[phone] [place] No Information 1-201 7 Aletha Pao. [address] [place] [address], [address], [place], [place], [facility], . tel:[phone], [place], [place], [address], tel:[phone] [facility] No Information Feb-0 8-201 7 Monticello Pao. [address] [place] [address], [address], [place], [facility], . tel:[phone] [facility], [address] [place], [place] [address], [place], [address], tel:[phone] [facility] No Information 0 4-201 7 Aletha Pao. [address] [place] [address], [address], [place], [place], [facility], [place]. tel:[phone] [facility] [address], [place], [address], [place] tel:[phone] [facility] CervicalgiaOth symptoms and signs involving the musculoskeletal systemAbnormal posturePostural kyphosis, thoracic regionSpondylos is w/o myelopathy or radiculopathy, cervical regionParkinson 's disease 3 0-201 7 Aletha Pao. [address] [place] [address], [address], [place], [facility], [place]. tel:[phone] [facility] [address], [place], [place], [address], [place] tel:[phone] [place] No Information 5-201 5 Eleazar Ella. [address] [place] [address], [address], [place], [facility], [place]. tel:[phone] [facility] [address], [place], [place], [address], [place] tel:[phone] [place] No Information Apr-1 3-201 5 Eleazar Ella. [address] [place] [address], [address], [place], [address], [place]. tel:[phone], [place], [address], [place] tel:[phone] [facility] No Information Apr-1 0-201 5 Eleazar Ella. [address] [place] [address], [address], [place], [address], [place]. tel:[phone], [place], [place], [address], [place] tel:[phone] [facility] No Information Apr-0 8-201 5 Eleazar Ella. [address] [place] [address], [address], [place], [address], [place]. tel:[phone], [place], [place], [address], [place] tel:[phone] [facility] No Information Apr-0 6-201 5 Eleazar Ella. [address] [place] [address], [address], [place], [address], [place]. tel:[phone], [place], [place], [address], [place] tel:[phone] [facility] No Information Apr-0 3-201 5 Eleazar Ella. [address] [place] [address], [address], [place], [address], [place]. tel:[phone], [place], [address], [place] tel:[phone] [facility] No Information Apr-0 1-201 5 Eleazar Ella. [address] [place] [address], [address], [place], [address], [place]. tel:[phone], [place], [address], [place] tel:[phone] [facility] No Information Mar-3 0-201 5 Eleazar Ella. [address] [place] [address], [address], [place], [address], [place]. tel:[phone] [address], [place], [place], [address], [place] tel:[phone] [facility] SciaticaPain in joint involving pelvic region and thighGENERALIZE D PAIN Mar-2 6-201 5 Eleazar Jaramillo. [address] [place] [address], [address], [place], [address], [place]. tel:[phone] [address], [place], [place], [address], [place] tel:[phone] [facility] No Information Sep-0 8-201 4 Garcia Keshia. [address] [place] [address], [address], [place], [address], [place]. tel:[phone] [address], [place], [place], [address], [place] tel:[phone] [facility] No Information Sep-0 5-201 4 Garcia Keshia. [address] [place] [address], [address], [place], [address], [place]. tel:[phone] [address], [place], [place], [address], [place] tel:[phone] [facility] No Information Sep-0 4-201 4 Garcia Keshia. [address] [place] [address], [address], [place], [address], [place]. tel:[phone] [address], [place], [place], [address], [place] tel:[phone] [facility] No Information Sep-0 2-201 4 Garcia Keshia. [address] [place] [address], [address], [place], [address], [place]. tel:[phone] [address], [place], [address], [place] tel:[phone] [facility] No Information Aug-2 9-201 4 Garcia Keshia. [address] [place] [address], [address], [place], [facility], . tel:[phone] [place] [address], [place], [place], [address], tel:[phone] [place] No Information 4 Garcia Keshia. [address] [place] [address], [facility] [address], [place], [place], [facility], . tel:[phone] [facility] [address] [place] [address] [address], [place], [place], [address], tel:[phone] [place] No Information 4 Garcia Keshia. [address] [place] [address], [facility] [address], [place], [facility], . tel:[phone], [id number], tel:[phone] [facility] No Information 4 Garcia Keshia. [address] [place] [address], [address], [place], [facility], [place]. tel:[phone], [id number], tel:[phone] [place] Pain in joint involving shoulder region 4 Garcia Keshia. [address] [place] [address], [facility] [address], [place], [place], [facility], . tel:[phone] Family History Family Member Type Diagnosis Age At Onset No Information Payers Payer name Insurance type Covered alliance party ID Authorellena titigre(s) [place] [id number] [employer] CI [id number] Social History Type Description Quantity Date Captured [...]
--- OUTSIDE RECORDS SUMMARY | 2024-06-18 10:53 | XMS_ITS | Clinical Summary ---
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
--- OUTSIDE RECORDS SUMMARY | 2024-06-18 10:53 | XMS_ITS | Patient Health Record ---
Author Organization [facility] Address [address] [place] [address] Support Name Relationship Address Phone Nydia Barraza Emergency Contact [address] [place] [address] Karyna Kemp Guarantor Unknown [phone] Allergies No Known Allergies Reason For Referral [...] Date Coverage End Date Medicare [address] [address] [place] [address] [id number] Karyna Kemp Self - patient is the insured Medical (General) History Medical History History ICD Code Parkinson's Disease Thyroid Disease Surgical History Surgery Date(Month/Year) Gallbladder Surgery Hysterectomy
--- OUTSIDE RECORDS SUMMARY | 2024-06-18 10:53 | XMS_ITS | Referral Summary ---
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
--- OUTSIDE RECORDS SUMMARY | 2024-06-18 10:53 | XMS_ITS | Encounter Summary ---
Author Organization [facility] Address [address] [place] [address] Care Team Providers Care Stove Fitter Name Role Phone Fina Prather MD Primary Care Provider + [phone] Brenda Lee MD Primary Care Provider [phone] Michael Ford MD Primary Care Provider [phone] Fina Prather MD Primary Care Provider + [phone] Michael Ford MD Primary Care Provider [phone] Encounter Details Date Type Department Care Team (Late st Contact Info) Description 03/28/2020 Preop Outreach [facility] [address] [place] [phone] Isaías Blevins MD [address] [place] [address] Social History Tobacco Use Types Packs/Day Years [...] COVID-19? 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 documented as of this encounter Plan of Treatment Upcoming Encounters Date Type Department Care Team (Late st Contact Info) Description 10/11/2024 2:00 PM CDT Office Visit [facility] - Neurology [address] [place] [address], [place] [address] Zak Mathews, PYROTECHNIST-LABEL CODER [address] [place] [address] [place] [phone] 11/22/2024 2:30 PM CDT Office Visit [facility] - GI [address] [place] [address], [place] [phone] Getachew Scott MD [address] [place] [phone] documented as of this encounter Visit Diagnoses Not on filedocumented in this encounter Additional Health Concerns Infection Onset Date Last Indicated Resolved Time COVID-19 Under Investigation 03/28/2020 03/28/2020 03/28/2020 10:23 PM POLYSOMNOGRAPHIC TECHNOLOGIST COVID-19 Under Investigation 10/05/2021 10/05/2021 10/05/2021 6:44 PM CDT documented as of this encounter Care Teams Stove Fitter Relationship Specialty Start Date End Date Fina Prather MD PCP - General 12/01/19 05/16/21 Brenda Lee MD [address] [place] [address] PCP - General Family Medicine 05/17/21 05/26/21 Michael Ford MD [address] [phone] PCP - General Family Medicine 06/09/21 06/15/21 Fina Prather MD PCP - General 06/16/21 09/10/21 Michael Ford MD [address] [place] [phone] PCP - General Family Medicine 10/05/21 documented as of this encounter
--- OUTSIDE RECORDS SUMMARY | 2024-06-18 10:53 | XMS_ITS ---
Author Name Fina Prather Address [address] [place] [address] Phone [phone] Organization [employer] [facility] Address [address] [place] [address] Phone [phone] Care Team Providers Care Dehydrator Name Role Phone Fina Prather Unavailable [phone] Functional Status Mental Status Allergies and Intolerances Encounters Problems Reason for Referral Past Medical History
--- OUTSIDE RECORDS SUMMARY | 2024-06-18 10:53 | XMS_ITS ---
Author Name Fina Prather Address [address] [place] [address] Phone [phone] Organization [employer] [facility] Address [address] [place] [address] Phone [phone] Care Team Providers Care Hyperbaric Technician Name Role Phone Fina Prather Unavailable [phone] Functional Status No Results Mental Status No Results Allergies and Intolerances No Known Allergies Encounters Program Name Primary Diagnosis Admission Date/Time Dis charge Date/Time Rehabilitation [facility] WedMay 27 20:00:00 EDT 2021Apr 21 18:59:00 EST 2024 [facility] WedFeb 26 19:00:00 EST [...]
--- OUTSIDE RECORDS SUMMARY | 2024-06-18 10:53 | XMS_ITS | CONTINUITY OF CARE DOCUMENT ---
Author Name bart arriaga Address Unknown Organization [facility] Address [address] [facility] [address] [place] [address] Phone [phone] Care Team Providers Care Concrete Wall Grinder Operator Name Role Phone bart arriaga Unavailable Unavailable INSURANCE PROVIDERS Payer name Policy type / Coverage type [place] red constitution party ID [id number] Admittedly insurance company [id number] [id number]
--- OUTSIDE RECORDS SUMMARY | 2024-06-18 10:53 | XMS_ITS | Clinical Summary ---
Author Organization [facility] Address [address] [place] [place] [address] Care Team Providers Care Detention Worker Name Role Phone Michael Ford MD Primary Care Provider [phone] Source Comments [facility],non-owned Affiliates and Associated Physician Practices is amultiple site organization consisting of ambulatory clinics and hospital sitesin [place], [place], [place] and [place]. This disclosure is being madepursuant to the Care Everywhere program and may not contain all information available regarding this patient. Last updated 17.[facility] Allergies Active Allergy Reactions Criticality Noted Date [...] (06/20/2020): Added automatically from request for surgery [id number] Orthostatic hypotension 12/16/2016 Overview (01/12/2020): Added automatically from request for surgery [id number] Parkinson's disease 11/27/2014 GERD (gastroesophageal reflux disease) 3 Encounters Date Type Department Care Team Description 06/08/2024 Telephone [facility] - Neurology [address] [place] [phone] Zak Mathews APRN-CNP Referral 06/07/2024 Orders Only [facility]rology [address] [place] [phone] Zak Mathews APRN-CNP Abnormal EEG 06/07/2024 Telephone [facility]rology [address] [place] [phone] Zak Mathews APRN-CNP Results (EEG) 05/31/2024 1:02 PM CDT - 05/31/2024 11:59 PM CDT Hospital Encounter [facility] EEG/EMG [address] [place] [address] Unknown, Provider Discharge Disposition: Home or Self Care 05/31/2024 Travel 05/25/2024 11:00 AM CDT Office Visit [facility] Neu[facility] [address] [place] [phone] Zak Mathews APRN-CNP Spell of loss of consciousness (Primary Dx); Parkinson's disease with dyskinesia and fluctuating manifestations 05/25/2024 Travel 05/24/2024 1:30 PM CDT Office Visit [facility] - GI [address] [place] [phone] Getachew Scott MD Full incontinence of feces (Primary Dx); Overflow diarrhea; Other constipation 05/24/2024 Travel 04/12/2024 3:30 PM PREPARED FOODS ASSOCIATE Office Visit [facility] Neurology [address] [place] [phone] Zak Mathews APRN-CNP Parkinson's disease with dyskinesia and fluctuating manifestations (Primary Dx) 04/12/2024 Travel 03/28/[address] [facility] Neu[facility] [address] [place] [phone] Zak Mathews APRN-CNP Refill Request from Last 3 Months Immunizations Name Administration Dates Next Due [employer] primary monoval ent 12+ yr 0.3mL Purple [...] Oxygen Concentration 21% 03/25/2020 3 :00 PM PREPARED FOODS ASSOCIATE Weight 65.7 kg (144 lb 12.8 oz) 025 10:58 AM CDT Height 160 cm (5' 3 ) 05/25/2024 10:58 AM CDT Body Mass Index 25.65 05/25/2024 10:58 AM CDT Plan of Treatment Upcoming Encounters Date Type Department Care Team (Late st Contact Info) Description 10/11/2024 2:00 PM CDT Office Visit [facility] - Neurology [address] [place] [phone] Zak Mathews APRN-CNP [address] [place] [address] [place] [phone] 11/22/2024 2:30 PM CDT Office Visit [facility] - GI [address] [place] [address], [place] [phone] Getachew Scott MD [address] [place] [phone] Health Maintenance Due Date Last Done Comments [...] last dose Medical Devices Implanted Type Area Home Designer Device Identifier Shelf Expiration Date Model / Serial / Lot Slnt Dura Duraseal Pg Trilysine Amine 5 Implanted:Qty: 1 on 03/25/2020 by Jai Caballero MD at [facility] Integra [employer] Elana 05/12/[id number] / / [id number] Slnt Dura Duraseal Pg Trilysine Amine 5 Implanted:Qty: 1 on 03/25/2020 by Jai Caballero MD at [facility] Left: Brain Integra [employer] Elana 12/12/[id number] / / [id number] [employer] Infinity Dbs System Implanted:Qty: 1 on 03/25/2020 by Jai Caballero MD at [facility] Left: Brain [employer] 03/27/2021 6172 / [id number] / Marcelo Spnl 140mm 6.35mm Ti Str Implanted:Qty: 1 on 03/25/2020 by Jean Carlos Fierro MD at [facility] Left: Brain [employer] 06/19/2021 6010 / / [id number] [employer] Infinity Dbs System Implanted:Qty: 1 on 04/01/2020 by Shannon Valero MD at [facility] Left: Neck 06/01/2021 6371 / [id number] / Infinity 7 Implantable Pulse Generator Implanted:Qty: 1 on 04/01/2020 by Shannon Valero MD at [facility] Left: Chest Wall 05/30/2021 6662 / [id number] / [employer] Infinity Dbs System Implanted:Qty: 1 on 07/18/2021 by Jai Caballero MD at [facility] Right: Brain [employer] 10/31/2022 6372 / [id number] / Slnt Dura Duraseal Pg Trilysine Amine 5 Implanted:Qty: 1 on 07/18/2021 by Jai Caballero MD at [facility] Right: Brain Integra [employer] Elana 12/12/2022 850278 / / [id number] Cranial [place] Hole Cover Implanted:Qty: 1 on 07/18/2021 by Jai Caballero MD at [facility] Right: Cranial [employer] 05/21/2023 6010 / / [id number] [employer] Infinity Dbs System Implanted:Qty: 1 on 07/18/2021 by Jai Caballero MD at [facility] Right: Brain [employer] 09/19/2022 6172 / / [id number] Procedures Procedure Name Priority Date/Time Associated Diagnosis Comments PROC DEEP BRAIN STIMULATOR Routine 05/25/2024 2:12 PM CDT Parkinson's disease with dyskinesia and fluctuating manifestations DE ANALYZE NEUROSTIM NO PROG Routine 04/13/2024 10:35 AM PREPARED FOODS ASSOCIATE Parkinson's disease with dyskinesia and fluctuating manifestations from Last 3 Months Results * PROC DEEP BRAIN STIMULATOR (05/25/2024 2:12 PM CDT) Paul Zak Mathews WOODWORKING CRAFTSMAN-CAUSTIC CRESYLATE SHIFT SUPERINTENDENT - 05/25/2024 2:12 PM CDT SettchloeEthanlucasbridger, WOODWORKING CRAFTSMAN-CAUSTIC CRESYLATE SHIFT SUPERINTENDENT 05/25/2024 2:14 PM Please see office notes for documentation Thanks Karpagam Settu WOODWORKING CRAFTSMAN-CAUSTIC CRESYLATE SHIFT SUPERINTENDENT PROCEDURE/MINOR SURGICAL ORDERABLES * DE ANALYZE NEUROSTIM NO PROG (04/13/2024 10:35 AM PREPARED FOODS ASSOCIATE) Paul Zak Mathews WOODWORKING CRAFTSMAN-CAUSTIC CRESYLATE SHIFT SUPERINTENDENT - 04/13/2024 10:35 AM PREPARED FOODS ASSOCIATE Zak Mathews, WOODWORKING CRAFTSMAN-CAUSTIC CRESYLATE SHIFT SUPERINTENDENT 04/13/2024 1:13 PM Please see office notes for documentation Thanks Karpagam Settu WOODWORKING CRAFTSMAN-CAUSTIC CRESYLATE SHIFT SUPERINTENDENT PROCEDURE/MINOR SURGICAL ORDERABLES from Last 3 Months Advance Directives Documents on File Type Date Recorded 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
--- NOTE | 2024-06-18 11:16 | ECG_ITS ---
Test Date: 2024-06-18 11:36:24 Measurements Intervals [place] Rate: 63 P: 47 DE: 140 QRS: -45 QRSD: 136 T: 130 QT: 431 QTc: 445 Interpretive Statements SINUS RHYTHM LEFT AXIS DEVIATION INTRAVENTRICULAR CONDUCTION DELAY LEFT VENTRICULAR HYPERTROPHY AND ST-T CHANGE MINIMAL Q WAVES- HIGH LATERAL LEADS BORDERLINE T WAVE ABNORMALITY- ANTEROLAT/INF LEADS BASELINE ARTIFACT- I, II, III, AVR, AVL, AVF, V1-V6 BORDERLINE ECG Compared to ECG 06/16/2024 15:29:43 No significant changes Electronically Signed On 06-18-2024 12:17:47 CDT by Abdoulaye Wiseman D.O.
[2024-06-18 11:40] LABS: Basophils Percent Auto 0.7 % (0.2-1.2); Eosinophils Percent Auto 0.7 % (0-4.4); Hematocrit 35.4 % (37.0-47.0); Hemoglobin 11.9 g/dL (12.0-15.0); Immature Granulocyte Absolute 0.02 K/mm3 (0.00-0.031); Immature Granulocyte Percent A 0.4 % (0-0.5); Lymphocytes Absolute Auto 0.81 K/mm3 (0.9-3.2); Lymphocytes Percent Auto 17.8 % (18.3-44.2); Mean Corpuscular HGB Conc 33.6 g/dl (32-36); Mean Corpuscular Hemoglobin 32.9 pg (26-34); Mean Corpuscular Volume 97.8 fl (80-100); Mean Platelet Volume 10.8 fl (7.4-10.4); Monocytes Absolute Auto 0.2 K/mm3 (0.1-0.6); Monocytes Percent Auto 4.8 % (2.6-8.5); Neutrophils Absolute Auto 3.4 K/mm3 (1.3-6.7); Neutrophils Percent Auto 75.6 % (45.5-73.1); Platelet Count Result 149 k/mm3 (150-375); Red Blood Count 3.62 M/mm3 (4.2-5.4); Red Cell Distribution Width 12.3 % (11.5-14.5); White Blood Count 4.6 K/mm3 (4.5-10.0)
[2024-06-18 11:50] LABS: Alanine Aminotransferase 6 U/L (6-35); Albumin Level 4.3 g/dL (3.5-5.1); Alkaline Phosphatase 106 U/L (38-126); Anion Gap 7 mmol/L (4-12); Aspartate Amino Transferase 20 U/L (14-36); Bilirubin,Total 1.2 mg/dL (0.2-1.3); Blood Urea Nitrogen 22 mg/dL (7-17); Calcium 9.3 mg/dL (8.4-10.2); Carbon Dioxide 31 mmol/L (22-30); Chloride 101 mmol/L (98-107); Estimated CRCL calculation 30 ml/min; Estimated Glomerular Filt Rate 45; Glucose 90 mg/dL (65-110); Potassium 3.7 mmol/L (3.4-5.0); Sodium 139 mmol/L (137-145)
[2024-06-18 11:51] LABS: Prothrombin Time 13.9 Seconds (11.1-14.7)
--- NOTE | 2024-06-18 13:07 | ED.FALL ---
HPI - Fall General Chief Complaint: Fall Stated Complaint: fall-hip pain Source: patient Mode of arrival: EMS Limitations: no limitations History of Present Illness HPI Narrative: 79-year-old with a history of for Parkinson's was brought in from assisted living facility with a complains of fall. Patient states that she lost her balance fell on her left hip. She denies any head and neck injuries no LOC. MD complaint: fall Onset (ago): hour(s) (1) Fall from: standing Fall witnessed: yes, by family Place fall occurred: other (Assisted living facility) Loss of consciousness: none Related Data Home Medications ?Medication ?Instructions ?Recorded ?Confirmed ?Last Taken ?Type carbidopa 25 mg-levodopa 100 mg tablet 02/11/24 Unknown History tablet carbidopa ER 50 mg-levodopa 200 mg tablet PO 02/11/24 Unknown History tablet,extended release cyanocobalamin (vitamin B-12) mcg 02/11/24 Unknown History 1,000 mcg/mL injection solution donepezil 5 mg tablet mg 02/11/24 Unknown History fludrocortisone 0.1 mg tablet mg 02/11/24 Unknown History folic acid 1 mg tablet 02/11/24 Unknown History gabapentin 100 mg capsule mg 02/11/24 Unknown History levothyroxine 100 mcg tablet mcg 02/11/24 Unknown History midodrine 5 mg tablet mg 02/11/24 Unknown History mirabegron 25 mg tablet,extended mg PO 02/11/24 Unknown History release 24 hr (Myrbetriq) omeprazole 40 mg capsule,delayed mg 02/11/24 Unknown History release potassium chloride 10 mEq meq PO 02/11/24 Unknown History tablet,extended release Allergies Allergy/AdvReac Type Severity Reaction Status Date / Time hydrocodone AdvReac Severe psychosis Verified 06/16/24 15:12 Review of Systems Review of Systems: All systems reviewed & are unremarkable except as noted in HPI and below Constitutional: Constitutional: Reports no additional constitutional complaints Eyes: Eyes: Reports no additional eye complaints ENT: Reports system reviewed and no additional complaints, except as documented Cardiovascular: Cardiovascular: Reports no additional cardiovascular complaints Respiratory: Respiratory: Reports no additional respiratory complaints Gastrointestinal: Gastrointestinal: Reports no additional gastrointestinal complaints Musculoskeletal: Musculoskeletal: Reports as per HPI Neurologic: Reports system reviewed and no additional complaints, except as documented Endocrine: Endocrine: Reports no additional endocrine complaints [facility] Past Medical History Medical History Pulmonary hypertension RVSP of 35-40 Chronic kidney disease Baseline creatinine 0.9-1 Congenital malrotation of intestine Urinary, incontinence, stress female Diastolic dysfunction Echo 11/2020: LV systolic function lower limit of normal, diastolic dysfunction grade 1, EF 50%, mild enlargement of left ventricular cavity, moderate concentric left ventricular hypertrophy, impaired diastolic relaxation grade 1 with an EF visually estimated 50%, vfzm-ub-cwfoozum aortic valve regurgitation, qwjp-vf-bvhkicyt tricuspid regurgitation Kidney stones Parkinson's disease Irritable bowel syndrome Gastroesophageal reflux disease (Unknown) Duplicated urinary collecting system Orthostatic hypotension Hypothyroidism Constipation Anemia Anxiety Depression Osteoporosis Arthritis Surgical History Surgical History Status post deep brain stimulator placement History of lithotripsy History of sacrocolpopexy For symptomatic vaginal vault prolapse. History of bunionectomy of both great toes History of rectal polypectomy History of local excision of skin lesion History of hysterectomy History of bladder surgery Mid urethral sling. History of cholecystectomy History of appendectomy Family History Family History Mother Carcinoma of colon Father Family history of coronary artery disease Sibling Family history of malignant neoplasm of breast Sibling Acute myocardial infarction Other Breast cancer Social History Social History Social History: The patient is as of 2007 and lives in independent living at [facility]. She has 3 daughters. Lifelong nonsmoker. No alcohol or illicit substance abuse. Her daughter Indigo Gallego is her healthcare power of insurance defense attorney. Code status: Full code. Alcohol intake: never Substance use: never Substance use type: does not use Living arrangements: [facility] Occupation/Education: retired Spiritual care concerns: No Exam Narrative: GENERAL: Well-appearing, well-nourished, and in no acute distress. HEAD: Normocephalic, atraumatic. EYES: PERRLA and EOMI. ENT: Nares clear, no rhinorrhea or epistaxis. Mucous membranes moist. NECK: Supple. CHEST: Clear to auscultation. No respiratory distress. HEART: Regular rate and rhythm. No murmur heard. Normal peripheral pulses. ABDOMEN: Soft, nontender, nondistended, normal active bowel sounds. EXTREMITIES: Normal range of motion. No edema. Tender in the left hip SKIN: Warm, dry, no rash. NEURO: No focal deficits. Alert and oriented x3. PSYCH: Normal mood and affect. Course Course Emergency Course: Notified patient and her sister about her lab work, x-ray findings.. Informed her that she will be admitted to the hospital require surgery for a hip. I discussed with the . Tru will consult , recommended NPO after midnight . Discussed with Hospitalist ,will accept the pt. Vital Signs Vital signs: Vital Signs Temperature 36.4 C L 06/18/24 10:35 Pulse Rate 68 06/18/24 10:35 Respiratory Rate 16 06/18/24 10:35 Pulse Oximetry 100 06/18/24 10:35 Temperature 36.4 C L 06/18/24 10:35 Pulse Rate 64 06/18/24 10:42 Respiratory Rate 16 06/18/24 10:42 Blood Pressure 182/92 H 06/18/24 10:42 Pulse Oximetry 98 06/18/24 10:42 MDM - Fall Differential Diagnosis Differential diagnosis: Likely other (hip fracture, contusion) Medical Records Attestation: I reviewed the patient's medical records. Lab Data Attestation: I reviewed the patient's lab results. 06/18/24 11:32 06/18/24 11:32 Labs: Lab Results 06/18/24 06/18/24 Range/Units 11:32 12:11 WBC 4.6 (4.5-10.0) K/mm3 RBC 3.62 L (4.2-5.4) M/mm3 Hgb 11.9 L (12.0-15.0) g/dL Hct 35.4 L (37.0-47.0) % MCV 97.8 (80-100) fl MCH 32.9 (26-34) pg MCHC 33.6 (32-36) g/dl RDW 12.3 (11.5-14.5) % Plt Count 149 L (150-375) k/mm3 MPV 10.8 H (7.4-10.4) fl Immature Gran % (Auto) 0.4 (0-0.5) % Neut % (Auto) 75.6 H (45.5-73.1) % Lymph % (Auto) 17.8 L (18.3-44.2) % [place] % (Auto) 4.8 (2.6-8.5) % Eos % (Auto) 0.7 (0-4.4) % Baso % (Auto) 0.7 (0.2-1.2) % Lymph # (Auto) 0.81 L (0.9-3.2) K/mm3 [place] # (Auto) 0.2 (0.1-0.6) K/mm3 Eos # (Auto) 0.0 (0-0.3) K/mm3 Baso # (Auto) 0.0 (0.0-0.1) K/mm3 Abs Immat Gran (auto) 0.02 (0.00-0.031) K/mm3 Absolute Neuts (auto) 3.4 (1.3-6.7) K/mm3 Absolute Nucleated RBC 0.000 (0.0-0.012) K/mm3 Nucleated RBC % 0.0 (0.0-0.2) % PT 13.9 (11.1-14.7) Seconds INR 1.0 APTT 29.0 (22.3-36.8) Seconds Sodium 139 (137-145) mmol/L Potassium 3.7 (3.4-5.0) mmol/L Chloride 101 (98-107) mmol/L Carbon Dioxide 31 H (22-30) mmol/L Anion Gap 7 (4-12) mmol/L BUN 22 H (7-17) mg/dL Creatinine 1.16 H (0.7-1.0) mg/dL Estim Creat Clear Calc 30 ml/min Estimated GFR 45 L (59 - ) Glucose 90 (65-110) mg/dL Calcium 9.3 (8.4-10.2) mg/dL Total Bilirubin 1.2 (0.2-1.3) mg/dL AST 20 (14-36) U/L ALT 6 (6-35) U/L Alkaline Phosphatase 106 (38-126) U/L Total Protein 7.0 (6.3-8.2) g/dL Albumin 4.3 (3.5-5.1) g/dL Blood Type O Positive Antibody Screen Negative Imaging Data Attestation: I personally reviewed and interpreted this imaging study as follows: Radiologist's impression: ITS Impressions Head CT 06/18/24 11:11 IMPRESSION: No acute intracranial findings. Chest X-Ray 06/18/24 11:17 IMPRESSION: Minimal opacification in the left lung base which may indicate atelectasis versus pneumonia. Follow-up advised. Hip/Pelvis X-Ray 06/18/24 11:20 IMPRESSION: No acute osseous abnormality pelvis and right hip. Bilateral moderate hip osteoarthritic changes. Highly suggestive left kidney stone. ADDENDUM: 06/18/24 1248 Highly suggestive left intertrochanteric fracture. Cervical Spine CT 06/18/24 11:30 IMPRESSION: No acute osseous abnormality cervical spine. Multilevel degenerative disc disease. Hip CT 06/18/24 12:44 IMPRESSION: Left femoral neck fracture extending to the lesser trochanter ECG Data EKG #1: ECG completion date: 06/18/24 ECG completion time: 11:36 EKG Interpretation: normal rate (63), sinus rhythm, no ST changes, normal QRS, normal QT and no acute changes Discharge Plan Discharge Clinical Impression: Closed left hip fracture Qualifiers: Encounter type: initial encounter Qualified Code(s): S72.002A - Fracture of unspecified part of neck of left femur, initial encounter for closed fracture Patient Disposition: Still a Patient Condition: Stable Patient Language: Burundian Prescriptions: No Action donepezil 5 mg tablet carbidopa-levodopa 50-200 mg tablet extended release PO midodrine 5 mg tablet potassium chloride 10 mEq tablet extended release PO omeprazole 40 mg capsule,delayed release(DR/EC) levothyroxine 100 mcg tablet cyanocobalamin (vitamin B-12) 1,000 mcg/mL solution folic acid 1 mg tablet gabapentin 100 mg capsule carbidopa-levodopa 25-100 mg tablet fludrocortisone 0.1 mg tablet mirabegron [Myrbetriq] 25 mg tablet extended release 24 hr PO Follow-up/Referrals: Michael Ford MD [Primary Care Provider] - Time of Disposition: 13:18
[2024-06-18] MEDS: MORPHINE SULFATE (*CRX) 2 MG/ML INJ IV PUSH ×3 (13:25→21:05)
[2024-06-18 13:31] VITALS: BP 138/84; PULSE 78; RESP 14; O2SAT 97
[2024-06-18] MEDS: SODIUM CHLORIDE 0.9% IV 1,000 ML 75 ML IV CONT (13:33)
--- NOTE | 2024-06-18 13:57 | P.HP_ITS ---
H&P: HPI History of Present Illness Date/Time: 06/18/24 13:57 Chief Complaint: Left hip pain Narrative: 79-year-old female past medical history of Parkinson's disease, hypothyroidism, anemia, diastolic congestive heart failure, pacemaker, pulmonary hypertension and chronic kidney disease presents to the hospital with left hip pain after a fall. Patient states that today small is not because of syncope she simply lost her balance and fell. She states that at rest her pain is controlled with pain medications however with movement she does have sharp pain. She denies hitting her head or hurting her neck. She states that she had implanted device for Parkinson's she believes that is called a DBS. Patient denies nausea vomiting or weakness. Patient was also seen in the emergency room on 06/16/2024 for fall with syncope and right hip pain x-ray showed no acute fracture patient was discharged. In the ED her lab work shows anemia with hemoglobin of 11.9, platelets 149, coags are within normal limits, creatinine of 1.16, GFR 45, CT head shows left femoral neck fracture extending through the lesser trochanter. C-spine is negative for acute fracture. Head CT shows no acute process. Chest x-ray shows Minimal opacification in the left lung base which may indicate atelectasis versus pneumonia. EKG shows sinus rhythm with left ventricle hypertrophy. Review of Systems Review of Systems: 12 systems were reviewed and are negativ e except for as per HPI. [facility] Past Medical History Medical History Pulmonary hypertension RVSP of 35-40 Chronic kidney disease Baseline creatinine 0.9-1 Congenital malrotation of intestine Urinary, incontinence, stress female Diastolic dysfunction Echo 11/2020: LV systolic function lower limit of normal, diastolic dysfunction grade 1, EF 50%, mild enlargement of left ventricular cavity, moderate concentric left ventricular hypertrophy, impaired diastolic relaxation grade 1 with an EF visually estimated 50%, [id number] aortic valve regurgitation, [id number] tricuspid regurgitation Kidney stones Parkinson's disease Irritable bowel syndrome Gastroesophageal reflux disease (Unknown) Duplicated urinary collecting system Orthostatic hypotension Hypothyroidism Constipation Anemia Anxiety Depression Osteoporosis Arthritis Surgical History Surgical History Status post deep brain stimulator placement History of lithotripsy History of sacrocolpopexy For symptomatic vaginal vault prolapse. History of bunionectomy of both great toes History of rectal polypectomy History of local excision of skin lesion History of hysterectomy History of bladder surgery Mid urethral sling. History of cholecystectomy History of appendectomy Family History Family History Mother Carcinoma of colon Father Family history of coronary artery disease Sibling Family history of malignant neoplasm of breast Sibling Acute myocardial infarction Other Breast cancer Social History Social History Social History: The patient is as of 2007 and lives in independent living at [place]. She has 3 daughters. Lifelong nonsmoker. No alcohol or illicit substance abuse. Her daughter Indigo Gallego is her healthcare power of recruiting associate. Code status: Full code. Smoking status: Never smoker Alcohol intake: never Substance use: never Substance use type: does not use Do You Feel Safe in your Home?: Yes Lack of Transportation: No Lack of Food: Never True Current Housing: I Have Housing Concerned About Future Housing: No Difficulty Paying Gas/Electric Bills: No Difficulty Paying for Meds: No Currently Unemployed: No Education: Decline to Answer Difficulty w/ Childcare or Family Care: No Living arrangements: [facility] Occupation/Education: retired Spiritual care concerns: No Meds Home Medications and Allergies Home Medications ?Medication ?Instructions ?Recorded ?Confirmed ?Type carbidopa 25 mg-levodopa 100 mg 1 tablet PO QID 02/11/24 06/18/24 History tablet carbidopa ER 50 mg-levodopa 200 mg 1 tablet PO QHS 02/11/24 06/18/24 History tablet,extended release donepezil 5 mg tablet 5 mg PO HS 02/11/24 06/18/24 History fludrocortisone 0.1 mg tablet 0.1 mg PO DAILY 02/11/24 06/18/24 History folic acid 1 mg tablet 1 mg PO DAILY 02/11/24 06/18/24 History gabapentin 100 mg capsule 100 mg PO HS 02/11/24 06/18/24 History levothyroxine 100 mcg tablet 100 mcg PO DAILY 02/11/24 06/18/24 History midodrine 5 mg tablet 5 mg PO QID 02/11/24 06/18/24 History omeprazole 40 mg capsule,delayed 40 mg PO BID 02/11/24 06/18/24 History release potassium chloride 10 mEq 10 meq PO QID 02/11/24 06/18/24 History tablet,extended release cholecalciferol (vitamin D3) 25 25 mcg PO DAILY 06/18/24 06/18/24 History mcg (1,000 unit) capsule (Vitamin D3) Allergies Allergy/AdvReac Type Severity Reaction Status Date / Time hydrocodone AdvReac Severe psychosis Verified 06/16/24 15:12 Vital Signs Vital Signs - 24 hr 06/18/24 10:35 06/18/24 10:42 06/18/24 13:31 Temperature 97.5 F L Pulse Rate 68 64 78 Respiratory Rate 16 16 14 Blood Pressure 182/92 H 138/84 Pulse Oximetry 100 98 97 Exam Narrative: General: well appearing, appears stated age. HEENT: normocephalic, atraumatic. Mucous membranes moist. EOMI, PERRLA, bilateral sclera anicteric, no conjunctival injection. Neck supple without JVD, lymphadenopathy, or bruit. Respiratory: clear to ascultation bilaterally. No rales/rhonic/wheezes. Cardiovascular: Regular rate and rhythm, normal S1-S2 upon ascultation. No murmurs, rubs, or clicks. PMI is nondisplaced, capillary refill less than 3 second. Abdomen: Soft, round, no pulsatile masses, nondistended and nontender. No rebound, no guarding. No CVA tenderness, no hepatosplenomegaly. Bowel sounds present to all four quadrants. No high pitch or tinkling sounds, resonant to percussion. Extremities: No cyanosis, clubbing, or edema present. Pulses are palpable 2/2. Right lower extremity limited range of motion due to acute pain Neuro: Alert and orientated x 4. PERRLA. Cranial nerves 2-12 intact without focal deficit. Skin: Warm, dry, and intact, without rash, erythema, or lesion. Psych: pleasant, cooperative, normal speech, normal affect, no hallucinations, no dysarthia H&P: Results Labs Labs: Short CBC 06/18/24 Range/Units 11:32 WBC 4.6 (4.5-10.0) K/mm3 Hgb 11.9 L (12.0-15.0) g/dL Hct 35.4 L (37.0-47.0) % Plt Count 149 L (150-375) k/mm3 BMP 06/18/24 11:32 Sodium 139 Potassium 3.7 Chloride 101 Carbon Dioxide 31 H BUN 22 H Creatinine 1.16 H Glucose 90 Calcium 9.3 Liver Function 06/18/24 Range/Units 11:32 Total Bilirubin 1.2 (0.2-1.3) mg/dL AST 20 (14-36) U/L ALT 6 (6-35) U/L Alkaline Phosphatase 106 (38-126) U/L Albumin 4.3 (3.5-5.1) g/dL Assessment and Plan Assessment and plan (1) Fall: Code(s): W19.XXXA - Unspecified fall, initial encounter Status: Acute Assessment and Plan: Patient has a history of orthostatic hypotension Fall precautions PT OT Syncopal workup-telemetry monitoring, orthostatic vital signs when able, echocardiogram (2) Closed left hip fracture: Qualifiers: Encounter type: initial encounter Qualified Code(s): S72.002A - Fracture of unspecified part of neck of left femur, initial encounter for closed fracture Code(s): S72.002A - Fracture of unspecified part of neck of left femur, initial encounter for closed fracture Status: Acute Assessment and Plan: Ortho consulted Plan for surgery tomorrow Okay for diet now, NPO midnight Nonweightbearing on left lower extremity Pain management, muscle relaxers and scheduled Tylenol Orthopedics is requesting cardiac clearance Cardiology consulted Echocardiogram ordered (3) (HFpEF) heart failure with preserved ejection fraction: Qualifiers: Heart failure chronicity: chronic Qualified Code(s): I50.32 - Chronic diastolic (congestive) heart failure Code(s): I50.30 - Unspecified diastolic (congestive) heart failure Status: Acute Assessment and Plan: Appears to be euvolemic Not on diuretics (4) Hypothyroidism: Qualifiers: Hypothyroidism type: acquired Qualified Code(s): E03.9 - Hypothyroidism, unspecified Code(s): E03.9 - Hypothyroidism, unspecified Status: Chronic Assessment and Plan: Restart Synthroid (5) Parkinson's disease: Code(s): G20 - Parkinson's disease Status: Acute Assessment and Plan: Restart Sinemet (6) Orthostatic hypotension: Code(s): I95.1 - Orthostatic hypotension Status: Chronic Assessment and Plan: Restart home florinef and and midodrine Quality VTE Prophylaxis VTE prophylaxis: mechanical ordered Hospitalist MIPS Advance Care Plan I have confirmed that the patient's Advanced Care Plan is present, code status is documented, or surrogate decision maker is listed in patient medical record.: Yes Medication Reconciliation I have utilized all available resources to obtain, update and review the patients current medications (includes all prescriptions, OTC, herbals, cannabis, and nutritional supplements).: Yes
[2024-06-18] MEDS: methocarbamoL 500 MG TABLET PO ×4 (14:10→23:29)
[2024-06-18 15:21] VITALS: BP 167/88; PULSE 72; RESP 18; O2SAT 97
[2024-06-18 16:17] VITALS: BMI 26.6
--- NOTE | 2024-06-18 16:30 | ADMGEN ---
This patient, Karyna Edmonds, was admitted to Medical Room 349-01. Patient/family oriented to hospital policies and general routines including ID bracelet, bed and alarms, visiting hours, pain management, procedures, bathroom and other care routines, personal items, smoking policy, room service/diet, and visiting hours. Information on how to activate the Rapid Response Team has been discussed. Patient/Family are encouraged to report perceived risks to care and to ask questions if they do not understand what they are told or what they should do.
[2024-06-18] MEDS: ACETAMINOPHEN 325 MG TABLET 650 MG PO ×2 (17:47→23:29)
[2024-06-18] MEDS: CARBIDOPA/LEVODOPA 25/100 MG CR TABLET 2 TABLET PO (21:00)
[2024-06-18] MEDS: DOCUSATE SODIUM 100 MG CAPSULE PO (21:00)
[2024-06-18] MEDS: DONEPEZIL HCL 5 MG TABLET PO (21:00)
[2024-06-18] MEDS: GABAPENTIN 100 MG CAPSULE PO (21:00)
[2024-06-18 21:18] LABS: NT Pro B Type Natriuretic Pept 2040 pg/mL (19.9-100)
[2024-06-18 22:00] VITALS: BP 143/85; PULSE 70; RESP 16; TEMP 36.9; O2SAT 96
[2024-06-19] VITALS (17 sets, daily range): BP systolic 132–188; BP diastolic 62–108; PULSE 63–89; RESP 13–18; TEMP 36.1–36.9; O2SAT 92–100
--- NOTE | 2024-06-19 | ECHO_ITS ---
Patient Info Name: Karyna Edmonds Age: 79 years : 1945 Gender: Female Ht: 63 in Wt: 150 lbs BSA: 1.76 m2 HR: 67 bpm BP: 143 / 85 mmHg Technical Quality: Good Exam Date: 06/19/2024 12:45 PM Exam Location: Echo Lab Patient Status: Inpatient Admit Date: 06/18/2024 Staff Ordering Physician: Ton Almanza MD Underliner: Pamela Jerome RDCS Attending Provider: Zhanna Mendoza PA-C Referring Physician: Cami SAUCEDO; Exam Type: CA echo dop color flow w con Study Info Indications - BORDERLINE EF 50% 4 YEARS AGO - SYNCOPA LEPISODES Complete two-dimensional, color flow and Doppler transthoracic echocardiogram is performed with contrast to opacify the left ventricle and to improve the deliniation of the left ventricle endocardial borders. Contrast/Agitated Saline Contrast/Ag. Saline: Definity Amount: 2.00 ml Administered By: Pamela Jerome RDCS Existing IV Access: Yes Summary 1. The left ventricle is normal in size with mildly reduced global systolic function. There is severe concentric left ventricular hypertrophy. The left ventricular ejection fraction is visually estimated to be 45-50%. 2. The right ventricle is normal in size and systolic function. 3. The aortic valve is probable trileaflet and thickened but opens well. There is moderate aortic regurgitation. Left Ventricle The left ventricle is normal in size with mildly reduced global systolic function. There is severe concentric left ventricular hypertrophy. The left ventricular ejection fraction is visually estimated to be 45-50%. Right Ventricle The right ventricle is normal in size and systolic function. Left Atria The left atrium is severely dilated. Right Atria The right atrium is normal size. Atrial Septum The atrial septum is normal. Aortic Valve The aortic valve is probable trileaflet and thickened but opens well. There is moderate aortic regurgitation. Pulmonic Valve The pulmonic valve is not well visualized. There is no color Doppler evidence of pulmonic valve regurgitation. Mitral Valve The mitral valve leaflets are thickened but opens well. There is trace mitral regurgitation. Tricuspid Valve The tricuspid valve is normal. There is mild tricuspid regurgitation. Pericardium/Pleural Pericardium is normal in appearance with no evidence for significant pericardial effusion. Inferior Vena Cava Dilated inferior vena cava with <50% collapse upon inspiration consistent with significantly elevated right atrial pressure, 15 mmHg. Aorta The aortic root at the level of the sinus of Valsalva measures 3.1 cm in diameter. Left Ventricular Outflow Tract Name Value Normal LVOT 2D LVOT Diameter 2.24 cm LVOT Doppler LVOT Peak Gradient 4 mmHg LVOT Mean Gradient 2 mmHg LVOT VTI 21.09 cm LVOT VTI/AV VTI Ratio 0.59 LVOT Stroke Volume 83.35 ml LVOT CO 5.94 l/min LVOT CI 3.38 L/min/m2 Pulmonic Valve Name Value Normal RVOT Doppler RVOT Peak Gradient 2 mmHg PV Doppler PV Peak Gradient 4 mmHg Mitral Valve Name Value Normal MV Doppler MV Decel [place] 343.99 cm/s2 MV PHT 0 s MV Area (PHT) 4.83 cm2 4.00-5.00 MV Diastolic Function MV E Peak Velocity 53.99 cm/s MV A Peak Velocity 113.96 cm/s MV E/A 0.47 MV Decel Time 0 s MV Annular TDI MV E/e' (Septal) 17.10 <=8.00 MV E/e' (Lateral) 14.84 <=8.00 MV E/e' (Average) 15.97 Tricuspid Valve Name Value Normal TV Regurgitation Doppler TR Peak Velocity 326.04 cm/s TR Peak Gradient 43 mmHg Estimated PAP/RSVP RA Pressure 15 mmHg <=5 PA Systolic Pressure 58 mmHg <36 RV Systolic Pressure 58 mmHg <36 Aorta Name Value Normal Ascending Aorta Ao Root Diameter (MM) 3.57 cm Ao Root Diam Index (MM) 2.03 cm/m2 Aortic Valve Name Value Normal AV Doppler AV Peak Velocity 209.15 cm/s AV Peak Gradient 17 mmHg AV Mean Gradient 9 mmHg AV VTI 35.93 cm AV Area (Cont Eq VTI) 2.32 cm2 >=3.00 AV Area (Cont Eq Bjorn) 1.96 cm2 AV Regurgitation 2D LVOT Area 3.95 cm2 AV Regurgitation Doppler AR Decel Time 2 s AR Decel [place] 279.61 cm/s2 AR PHT 1 s Ventricles Name Value Normal LV Dimensions 2D/MM IVS Diastolic Thickness (2D) 1.38 cm 0.60-1.00 LVID Diastole (2D) 4.37 cm 3.80-5.20 LVIW Diastolic Thickness (2D) 1.36 cm 0.60-0.90 LVID Systole (2D) 3.51 cm 2.20-3.50 LVOT Diameter 2.24 cm LV Mass (2D Cubed) 229.79 g 67.00-162.00 LV Mass Index (2D Cubed) 0.01 g/cm2 0.00-0.01 Relative Wall Thickness (2D) 0.62 LV Fractional Shortening/Ejection Fraction 2D/MM LV Fractional Shortening (2D) 20 % 27-45 LV EF (2D Teicholz) 40 % 54-74 LV Diastolic Volume (4C MOD) 102.59 ml LV EF (4C MOD) 46 % LV Diastolic Volume (2C MOD) 133.45 ml LV EF (2C MOD) 45 % LV Diastolic Volume (BP MOD) 117.37 ml 46.00-106.00 LV Diastolic Volume Index (BP MOD) 0.07 l/m2 0.03-0.06 LV Systolic Volume (BP MOD) 65.01 ml 14.00-42.00 LV Systolic Volume Index (BP MOD) 0.04 l/m2 0.01-0.02 LV EF (BP MOD) 45 % 54-74 LV Diastolic Length (4C) 7.95 cm LV Systolic Length (4C) 6.65 cm LV Stroke Volume (4C MOD) 47.54 ml Atria Name Value Normal LA Dimensions LA Dimension (MM) 3.63 cm 2.70-3.80 LA Volume (4C A-L) 103.15 ml LA Volume (BP A-L) 108.06 ml RA Dimensions RA Area (4C) 19.49 cm2 <=18.00 Report Signatures
[2024-06-19] MEDS: SODIUM CHLORIDE 0.9% IV 1,000 ML 75 ML IV CONT (04:26)
[2024-06-19 05:44] LABS: Basophils Percent Auto 0.7 % (0.2-1.2); Eosinophils Percent Auto 0.9 % (0-4.4); Hematocrit 31.5 % (37.0-47.0); Hemoglobin 10.4 g/dL (12.0-15.0); Immature Granulocyte Absolute 0.01 K/mm3 (0.00-0.031); Immature Granulocyte Percent A 0.2 % (0-0.5); Immature Platelet Fraction Pct 3.2 % (0.9-11.2); Lymphocytes Absolute Auto 1.45 K/mm3 (0.9-3.2); Mean Corpuscular Hemoglobin 32.8 pg (26-34); Mean Corpuscular Volume 99.4 fl (80-100); Monocytes Absolute Auto 0.3 K/mm3 (0.1-0.6); Neutrophils Absolute Auto 2.4 K/mm3 (1.3-6.7); Neutrophils Percent Auto 57.2 % (45.5-73.1); Platelet Count Result 119 k/mm3 (150-375); Red Blood Count 3.17 M/mm3 (4.2-5.4); Red Cell Distribution Width 12.3 % (11.5-14.5); White Blood Count 4.3 K/mm3 (4.5-10.0)
[2024-06-19] MEDS: methocarbamoL 500 MG TABLET PO (05:47)
[2024-06-19] MEDS: LEVOTHYROXINE SODIUM 100 MCG TABLET PO (05:47)
[2024-06-19] MEDS: ACETAMINOPHEN 325 MG TABLET 650 MG PO (05:47)
[2024-06-19 05:56] LABS: Anion Gap 8 mmol/L (4-12); Blood Urea Nitrogen 21 mg/dL (7-17); Calcium 8.5 mg/dL (8.4-10.2); Carbon Dioxide 26 mmol/L (22-30); Chloride 102 mmol/L (98-107); Estimated CRCL calculation 35 ml/min; Estimated Glomerular Filt Rate 55; Glucose 91 mg/dL (65-110); Potassium 3.4 mmol/L (3.4-5.0); Sodium 136 mmol/L (137-145)
--- NOTE | 2024-06-19 06:26 | PM.IMPN ---
Progress Note: A&P Assessment and Plan (1) Fall: Code(s): W19.XXXA - Unspecified fall, initial encounter Status: Acute Assessment and Plan: History of orthostatic hypotension and syncope Patient unsure what caused her to fall or if she had a head strike or LOC Not anticoagulated Telemetry Orthostatic vital signs when able to obtain Head CT: No acute intracranial findings Chest XR: Minimal opacification in the left lung base which may indicate atelectasis versus pneumonia Likely atelectasis as patient is afebrile without leukocytosis and remains asymptomatic. Incentive spirometer ordered. C spine CT: No acute osseous abnormality of the cervical spine however multiple degenerative disc disease noted Hip/pelvis XR: Redemonstration of a left femoral neck fracture Hip CT: Left femoral neck fracture extending to the lesser trochanter See plan for fracture femoral neck #2 below for further plan (2) Fracture of femoral neck, left: Code(s): S72.002A - Fracture of unspecified part of neck of left femur, initial encounter for closed fracture Status: Inactive Assessment and Plan: - Hip/pelvis XR: Redemonstration of a left femoral neck fracture - Hip CT: Left femoral neck fracture extending to the lesser trochanter - Analgesics - PT/OT per ortho recommendations - Ortho consulted Cardiology consulted per ortho for surgical clearance Plan for left intertrochanteric nail today with Dr. Almanza (3) Recurrent syncope: Code(s): R55 - Syncope and collapse Status: Acute Assessment and Plan: Secondary to orthostatic hypotension Tele Continue orthostatic hypotension medications as below #4 orthostatic hypotension Obtain echo (4) Orthostatic hypotension: Code(s): I95.1 - Orthostatic hypotension Status: Chronic Assessment and Plan: Chronic Continue home medications: midodrine 5 mg QID and florinef 0.1 mg daily Monitor (5) Hypothyroidism: Qualifiers: Hypothyroidism type: acquired Qualified Code(s): E03.9 - Hypothyroidism, unspecified Code(s): E03.9 - Hypothyroidism, unspecified Status: Chronic Assessment and Plan: Chronic Continue synthroid 100 mcg daily TSH ordered (6) Parkinson's disease: Code(s): G20 - Parkinson's disease Status: Acute Assessment and Plan: Chronic s/p brain stimulator placement Continue carbidopa/levodopa and Aricept Time Spent With Patient Time with patient: 25 - 35 minutes Subjective Date/time seen: 06/19/24 06:26 Interval history: 79 year old female with past medical history of CKD, diastolic dysfunction, GERD, hypothyroidism, orthostatic hypotension, and Parkinson with deep brain stimulator presents to the hospital following a ground level fall resulting in left hip pain. Patient is pleasant lying in bed. She is alert and oriented at time of assessment. She states pain is well controlled on the current regimen. She denies any chest pain, shortness of breath, palpitations, nausea/vomiting and abdominal pain. Plan for surgery with Dr. Almanza later today. Review of Systems Review of Systems: All systems reviewed & are unremarkable except as noted in HPI and below Exam Narrative: AF General: female in no acute respiratory distress who is nontoxic appearing, lying semi recumbent in bed. HEENT: Normocephalic. Atraumatic. Extraocular movement intact. Sclera clear and anicteric. No facial asymmetry. Chest: Lungs are clear to auscultation bilaterally. No wheezes or crackles. CV: Heart was regular rate and rhythm. S1-S2. No murmurs, gallops, or rubs. Abd: Abdomen was soft. Nontender. Nondistended. Positive bowel sounds. Ext: No clubbing, cyanosis. DP pulses bilaterally. Edema to left hip. Neuro: Patient is alert and oriented x3. Speech is clear. Dyskinesia. Objective Data Vital Signs Vital Signs: Vital Signs - 24 hr 06/18/24 10:35 06/18/24 10:42 06/18/24 13:31 Temperature 97.5 F L Pulse Rate 68 64 78 Respiratory Rate 16 16 14 Blood Pressure 182/92 H 138/84 Pulse Oximetry 100 98 97 Oxygen Delivery 06/18/24 15:21 06/18/24 20:00 06/18/24 22:00 Temperature 98.5 F Pulse Rate 72 70 Respiratory Rate 18 16 Blood Pressure 167/88 H 143/85 H Pulse Oximetry 97 96 Oxygen Delivery Room Air Intake/Output Intake/Output: Intake & Output 06/16/24 06/17/24 06/18/24 06/19/24 23:59 23:59 23:59 23:59 Intake Total 200 1000 Output Total 200 Balance 0 1000 Meds/Results Medications: Active Medications Generic Name Dose Route Start Last Admin Trade Name Freq PRN Reason Stop Dose Admin Acetaminophen 650 mg 06/18/24 18:00 06/19/24 05:47 Acetaminophen 325 Mg Tablet PO 650 mg Q6HR NICOLE Administration Carbidopa/Levodopa 2 tablet 06/18/24 21:00 06/18/24 21:00 Carbidopa/Levodopa 25/100 Mg Cr Tablet PO 2 tablet QHS NICOLE Administration Carbidopa/Levodopa 1 tablet 06/18/24 21:00 06/18/24 21:00 Carbidopa/Levodopa 25/100 Mg Tablet PO Not Given QID NICOLE Docusate Sodium 100 mg 06/18/24 21:00 06/18/24 21:00 Docusate Sodium 100 Mg Capsule PO 100 mg Q12HR NICOLE Administration Donepezil HCl 5 mg 06/18/24 21:00 06/18/24 21:00 Donepezil Hcl 5 Mg Tablet PO 5 mg HS NICOLE Administration Fludrocortisone Acetate 0.1 mg 06/19/24 09:00 Fludrocortisone Acetate 0.1 Mg Tablet PO DAILY NICOLE Gabapentin 100 mg 06/18/24 21:00 06/18/24 21:00 Gabapentin 100 Mg Capsule PO 100 mg HS NICOLE Administration Sodium Chloride 1,000 mls @ 75 mls/hr 06/18/24 13:20 06/19/24 04:26 Normal Saline Iv IV CONT 75 mls/hr .[id number] NICOLE Administration Tranexamic Acid/Sodium Chloride 1,000 mg in 100 mls @ 200 mls/hr 06/19/24 15:30 Tranexamic Acid 1,000mg/[id number] IVPB 06/19/24 15:59 ONCE ONE Cefazolin Sodium 2 gm in 50 mls @ 100 mls/hr 06/19/24 15:30 Ancef 2 Gm/D5w 50 Ml IVPB 06/19/24 15:59 ONCE ONE Vancomycin HCl 1,000 mg in 250 mls @ 250 mls/hr 06/19/24 14:30 Vancomycin 1,000 Mg/Ns 250 Ml IVPB 06/19/24 15:29 ONCE ONE Levothyroxine Sodium 100 mcg 06/19/24 06:30 06/19/24 05:47 Levothyroxine Sodium 100 Mcg Tablet PO 100 mcg DAILY@0630 NICOLE Administration Methocarbamol 500 mg 06/18/24 14:10 06/19/24 05:47 Methocarbamol 500 Mg Tablet PO 500 mg Q6HR NICOLE Administration Midodrine 5 mg 06/18/24 21:00 06/18/24 21:00 Midodrine Hcl 2.5 Mg Tablet PO Not Given QID NICOLE Morphine Sulfate 2 mg 06/18/24 13:20 06/18/24 21:05 Morphine Sulfate (*Crx) 2 Mg/Ml Inj IV PUSH 2 mg Q2H PRN Administration Pain Rated 7-10 Ondansetron HCl 4 mg 06/18/24 13:20 Ondansetron Inj 4 Mg/2 Ml Vial IV PUSH Q4H PRN Nausea Pantoprazole Sodium 40 mg 06/19/24 09:00 Pantoprazole 40 Mg Tablet PO Q12HR NICOLE Perflutren Lipid Microsphere 0 ml 06/18/24 15:40 Perflutren Lipid Microspheres 1.5 Ml Vial Diluted To 10 Ml Total Volume IV PUSH 06/21/24 15:41 ONCE PRN adequate visualization Protocol Radiology Results: ITS Impressions Head CT 06/18/24 11:11 IMPRESSION: No acute intracranial findings. Chest X-Ray 06/18/24 11:17 IMPRESSION: Minimal opacification in the left lung base which may indicate atelectasis versus pneumonia. Follow-up advised. Cervical Spine CT 06/18/24 11:30 IMPRESSION: No acute osseous abnormality cervical spine. Multilevel degenerative disc disease. Hip CT 06/18/24 12:44 IMPRESSION: Left femoral neck fracture extending to the lesser trochanter Hip/Pelvis X-Ray 06/18/24 16:29 IMPRESSION: Redemonstration of a left femoral neck fracture, better visualized on the CT examination performed less than 4 hours earlier. Labs Labs: Laboratory Results - last 24 hr 06/18/24 06/18/24 06/19/24 11:32 12:11 05:27 WBC 4.6 4.3 L RBC 3.62 L 3.17 L Hgb 11.9 L 10.4 L Hct 35.4 L 31.5 L MCV 97.8 99.4 MCH 32.9 32.8 MCHC 33.6 33.0 RDW 12.3 12.3 Plt Count 149 L 119 L MPV 10.8 H 10.0 Immature Gran % (Auto) 0.4 0.2 Neut % (Auto) 75.6 H 57.2 Lymph % (Auto) 17.8 L 34.0 [place] % (Auto) 4.8 7.0 Eos % (Auto) 0.7 0.9 Baso % (Auto) 0.7 0.7 Lymph # (Auto) 0.81 L 1.45 [place] # (Auto) 0.2 0.3 Eos # (Auto) 0.0 0.0 Baso # (Auto) 0.0 0.0 Abs Immat Gran (auto) 0.02 0.01 Absolute Neuts (auto) 3.4 2.4 Absolute Nucleated RBC 0.000 0.000 Nucleated RBC % 0.0 0.0 % Immature Plt Fraction 3.2 PT 13.9 INR 1.0 APTT 29.0 Sodium 139 136 L Potassium 3.7 3.4 Chloride 101 102 Carbon Dioxide 31 H 26 Anion Gap 7 8 BUN 22 H 21 H Creatinine 1.16 H 0.98 Estim Creat Clear Calc 30 35 Estimated GFR 45 L 55 L Glucose 90 91 Calcium 9.3 8.5 Total Bilirubin 1.2 AST 20 ALT 6 Alkaline Phosphatase 106 NT-Pro-B Natriuret Pep 2040 H Total Protein 7.0 Albumin 4.3 Blood Type O Positive Antibody Screen Negative Quality VTE Prophylaxis VTE prophylaxis: mechanical ordered
[2024-06-19] MEDS: CARBIDOPA/LEVODOPA 25/100 MG TABLET 1 TABLET PO ×2 (07:37→12:33)
[2024-06-19] MEDS: MORPHINE SULFATE (*CRX) 2 MG/ML INJ IV PUSH (07:40)
[2024-06-19 07:52] LABS: Thyroid Stimulating Hormone Reflex 0.767 uIU/mL (0.465-4.68)
[2024-06-19] MEDS: FLUDROCORTISONE ACETATE 0.1 MG TABLET PO (08:50)
--- NOTE | 2024-06-19 09:17 | PM.CNCAR ---
Assessment and Plan Assessment and plan (1) Pre-op evaluation: Code(s): Z01.818 - Encounter for other preprocedural examination Status: Acute Assessment and Plan: Patient is at low risk for perioperative cardiovascular complications. Patient has a longstanding history of syncope related to orthostasis from her Parkinson's disease. She has no acute ST T wave abnormalities in no chest pain or shortness of breath symptoms. No further workup needed prior to proceeding with surgery to repair her hip (2) Orthostatic hypotension: Code(s): I95.1 - Orthostatic hypotension Status: Chronic Assessment and Plan: Related to Parkinson's. Continue fludrocortisone and midodrine. Some degree of permissive hypertension will be allowed to avoid symptomatic drop in BP (3) Closed left hip fracture: Qualifiers: Encounter type: initial encounter Qualified Code(s): S72.002A - Fracture of unspecified part of neck of left femur, initial encounter for closed fracture Code(s): S72.002A - Fracture of unspecified part of neck of left femur, initial encounter for closed fracture Status: Acute Assessment and Plan: Likely related to orthostasis resulting in syncope (4) Hx of Parkinson's disease: Code(s): Z86.69 - Personal history of other diseases of the nervous system and sense organs Status: Chronic Assessment and Plan: On carbidopa with levodopa (5) Recurrent syncope: Code(s): R55 - Syncope and collapse Status: Acute Assessment and Plan: Related orthostatic hypotension. Continue fludrocortisone, midodrine. 2D echocardiogram with Dopplers ordered and will be reviewed (6) Hypokalemia: Code(s): E87.6 - Hypokalemia Status: Acute Assessment and Plan: Potassium 3.4 today. Will replace with 40 mEq KCL p.o. x1. History of Present Illness History of Present Illness Consult date/time: 06/19/24 09:17 Requesting physician: Ton Almanza MD Consult reason: Other (Preop evaluation, syncope) Reason For Visit: Left hip fracture Narrative: Reason for consult: Preop evaluation, syncope Date of service 06/19/2024 Requesting provider: Dr. Almanza History: Patient is a 79-year-old female with longstanding history syncope related to orthostatic hypotension from Parkinson's disease. She presented to the hospital because she sustained a fall. She states she got up from a chair and ended up on the kitchen floor. She woke up on the floor and could not get herself up. EMS was called and she was brought to the hospital. She was found to have left hip fracture. Patient denies any chest pain, paroxysmal nocturnal dyspnea, orthopnea, shortness of breath or palpitations. Patient does have some baseline edema which is not new or different. EKG shows no acute ST or T-wave abnormalities. Review of Systems Review of Systems: All systems reviewed & are unremarkable except as noted in HPI and below Constitutional: Constitutional: Denies body ache(s) Eyes: Eyes: Denies blurry vision ENT: Reports Normal hearing present Cardiovascular: Cardiovascular: Denies chest pain Respiratory: Respiratory: Denies chest congestion Gastrointestinal: Gastrointestinal: Denies abdominal pain Genitourinary: Genitourinary: Denies hematuria Musculoskeletal: Musculoskeletal: Denies back pain Integumentary/Breasts: Skin/Breast: Denies erythema Neurologic: Denies Abnormal speech present Psychiatric: Psychiatric: Denies anxiety Endocrine: Endocrine: Denies excessive sweating Hematologic/Lymphatic: Hematologic/Lymphatic: Denies easy bleeding Allergic/Immunologic: Allergic/Immunologic: Denies GI upset with certain foods PMFSH Past Medical History Medical History (Updated 06/19/24 @ 09:26 by Burt Zambrano MD) Hypokalemia Pulmonary hypertension RVSP of 35-40 Chronic kidney disease Baseline creatinine 0.9-1 Congenital malrotation of intestine Urinary, incontinence, stress female Diastolic dysfunction Echo 11/2020: LV systolic function lower limit of normal, diastolic dysfunction grade 1, EF 50%, mild enlargement of left ventricular cavity, moderate concentric left ventricular hypertrophy, impaired diastolic relaxation grade 1 with an EF visually estimated 50%, [id number] aortic valve regurgitation, [id number] tricuspid regurgitation Kidney stones Parkinson's disease Irritable bowel syndrome Gastroesophageal reflux disease (Unknown) Duplicated urinary collecting system Orthostatic hypotension Hypothyroidism Constipation Anemia Anxiety Depression Osteoporosis Arthritis Surgical History Surgical History Status post deep brain stimulator placement History of lithotripsy History of sacrocolpopexy For symptomatic vaginal vault prolapse. History of bunionectomy of both great toes History of rectal polypectomy History of local excision of skin lesion History of hysterectomy History of bladder surgery Mid urethral sling. History of cholecystectomy History of appendectomy Family History Family History Mother Carcinoma of colon Father Family history of coronary artery disease Sibling Family history of malignant neoplasm of breast Sibling Acute myocardial infarction Other Breast cancer Social History Social History Social History: The patient is as of 2007 and lives in independent living at [place]. She has 3 daughters. Lifelong nonsmoker. No alcohol or illicit substance abuse. Her daughter Indigo Gallego is her healthcare power of attorney law clerk. Code status: Full code. Smoking status: Never smoker Alcohol intake: never Substance use: never Substance use type: does not use Do You Feel Safe in your Home?: Yes Lack of Transportation: No Lack of Food: Never True Current Housing: I Have Housing Concerned About Future Housing: No Difficulty Paying Gas/Electric Bills: No Difficulty Paying for Meds: No Currently Unemployed: No Education: Decline to Answer Difficulty w/ Childcare or Family Care: No Living arrangements: [facility] Occupation/Education: retired Spiritual care concerns: No Meds Home Medications and Allergies Home Medications ?Medication ?Instructions ?Recorded ?Confirmed ?Type carbidopa 25 mg-levodopa 100 mg 1 tablet PO QID 02/11/24 06/18/24 History tablet carbidopa ER 50 mg-levodopa 200 mg 1 tablet PO QHS 02/11/24 06/18/24 History tablet,extended release donepezil 5 mg tablet 5 mg PO HS 02/11/24 06/18/24 History fludrocortisone 0.1 mg tablet 0.1 mg PO DAILY 02/11/24 06/18/24 History folic acid 1 mg tablet 1 mg PO DAILY 02/11/24 06/18/24 History gabapentin 100 mg capsule 100 mg PO HS 02/11/24 06/18/24 History levothyroxine 100 mcg tablet 100 mcg PO DAILY 02/11/24 06/18/24 History midodrine 5 mg tablet 5 mg PO QID 02/11/24 06/18/24 History omeprazole 40 mg capsule,delayed 40 mg PO BID 02/11/24 06/18/24 History release potassium chloride 10 mEq 10 meq PO QID 02/11/24 06/18/24 History tablet,extended release cholecalciferol (vitamin D3) 25 25 mcg PO DAILY 06/18/24 06/18/24 History mcg (1,000 unit) capsule (Vitamin D3) Allergies Allergy/AdvReac Type Severity Reaction Status Date / Time hydrocodone AdvReac Severe psychosis Verified 06/16/24 15:12 Vital Signs Vital Signs - 24 hr 06/18/24 10:35 06/18/24 10:42 06/18/24 13:31 Temperature 36.4 C L Pulse Rate 68 64 78 Respiratory Rate 16 16 14 Blood Pressure 182/92 H 138/84 Pulse Oximetry 100 98 97 Oxygen Delivery 06/18/24 15:21 06/18/24 20:00 06/18/24 22:00 Temperature 36.9 C Pulse Rate 72 70 Respiratory Rate 18 16 Blood Pressure 167/88 H 143/85 H Pulse Oximetry 97 96 Oxygen Delivery Room Air 06/19/24 06:00 06/19/24 06:00 06/19/24 08:00 Temperature 36.5 C 36.5 C Pulse Rate 65 65 Respiratory Rate 18 18 Blood Pressure 137/62 137/62 Pulse Oximetry 96 96 93 Oxygen Delivery Room Air 06/19/24 08:32 Temperature Pulse Rate Respiratory Rate Blood Pressure Pulse Oximetry 93 Oxygen Delivery Room Air Exam Narrative: Awake alert oriented. Appears stated age Const: General: comfortable and no acute distress HENMT: Ears: TM's normal bilaterally Face/Nose/Sinus: Normal nares present Mouth: Yes moist mucous membranes Eyes: General: appearance normal, both eyes and all related structures Sclera: sclerae normal Neck: Neck: supple and no JVD Carotids: no bruits Chest: Other: No reproducible chest wall pain to palpation Resp: Effort & Inspection: normal respiratory effort Auscultation: clear to auscultation bilaterally Cardio: Rate: regular rate Rhythm: regular rhythm Heart sounds: no murmurs GI: Inspection: non-distended GI Palp: Yes Soft to palpation Auscultation: normal bowel sounds Neuro: Speech: normal speech Sensory Exam: normal sensation Extrem: General: normal to inspection Psych: Mental Status: mental status grossly normal Affect: normal affect Results Labs and Meds 06/19/24 05:27 06/19/24 05:27 Lab results: Cardiac Enzymes 06/18/24 Range/Units 11:32 AST 20 (14-36) U/L Coagulation 06/18/24 Range/Units 11:32 PT 13.9 (11.1-14.7) Seconds APTT 29.0 (22.3-36.8) Seconds CBC 06/18/24 06/19/24 Range/Units 11:32 05:27 WBC 4.6 4.3 L (4.5-10.0) K/mm3 RBC 3.62 L 3.17 L (4.2-5.4) M/mm3 Hgb 11.9 L 10.4 L (12.0-15.0) g/dL Hct 35.4 L 31.5 L (37.0-47.0) % Plt Count 149 L 119 L (150-375) k/mm3 Lymph # (Auto) 0.81 L 1.45 (0.9-3.2) K/mm3 [place] # (Auto) 0.2 0.3 (0.1-0.6) K/mm3 Eos # (Auto) 0.0 0.0 (0-0.3) K/mm3 Baso # (Auto) 0.0 0.0 (0.0-0.1) K/mm3 Comprehensive Metabolic Panel 06/18/24 06/19/24 Range/Units 11:32 05:27 Sodium 139 136 L (137-145) mmol/L Potassium 3.7 3.4 (3.4-5.0) mmol/L Chloride 101 102 (98-107) mmol/L Carbon Dioxide 31 H 26 (22-30) mmol/L BUN 22 H 21 H (7-17) mg/dL Creatinine 1.16 H 0.98 (0.7-1.0) mg/dL Glucose 90 91 (65-110) mg/dL Calcium 9.3 8.5 (8.4-10.2) mg/dL AST 20 (14-36) U/L ALT 6 (6-35) U/L Alkaline Phosphatase 106 (38-126) U/L Total Protein 7.0 (6.3-8.2) g/dL Albumin 4.3 (3.5-5.1) g/dL Intake and Output 06/18/24 06/19/24 06/19/24 23:59 07:59 15:59 Intake Total 200 1000 Output Total 200 1000 Balance 0 0 Intake: IV 1000 Sodium Chloride 0.9% IV 1,000 1000 ml @ 75 mls/hr IV CONT .[id number] [facility] Rx#:[id number] Oral 200 Output: Urine 200 1000 Patient Weight 06/19/24 23:59 Weight 72 kg EKG personally viewed any new been interpreted showing normal sinus rhythm, nonspecific ST and T-wave abnormality, LVH. Abnormal ECG. Echocardiogram personally reviewed and interpreted showing EF 50% with left ventricular enlargement, mild left atrial enlargement, [id number] AI, RVSP 35-40 with [id number] TR. Mild MR.
[2024-06-19] MEDS: POTASSIUM CHLORIDE 20 MEQ ER TABLET 40 MEQ PO (09:51)
[2024-06-19] MEDS: ONDANSETRON INJ 4 MG/2 ML VIAL IV PUSH (12:36)
--- NOTE | 2024-06-19 12:42 | P.CONOP_ITS ---
Assessment and Plan Assessment and plan (1) Closed intertrochanteric fracture of left hip: Qualifiers: Encounter type: initial encounter Fracture alignment: displaced Q ualified Code(s): S72.142A - Displaced intertrochanteric fracture of left femur, initial encounter for closed fracture Code(s): S72.142A - Displaced intertrochanteric fracture of left femur, initial encounter for closed fracture Status: Acute Assessment and Plan: Patient is a 79-year-old female who lives in assisted living at [place] and is independent. She fell yesterday onto her left hip was unable to ambulate complaining of severe left hip pain was brought to the emergency room and x-rays demonstrated a minimally displaced left intertrochanteric hip fracture. The fracture pattern is best appreciated on the CT scan. The fracture line extends posteromedial to about 2 cm below the lesser trochanter. As the fracture propagates anteriorly it extends proximally and fracture line exits anterior subcapital it appears to be a 2 part fracture with the lesser trochanter attached to the head and neck fragment and the greater trochanter attached to the shaft. There is mild comminution along the center of the intertrochanteric ridge posteriorly. There is about 3 or 4 mm of displacement. There is underlying osteoarthritis change of the left hip with joint space narrowing superolaterally and with small hypertrophic rimming osteophyte around the femoral head. No significant sclerotic changes. Osteoporosis is suggested especially on the CT scan. No evidence of acetabular fracture. No other pelvis fracture noted. Patient has history of significant problems with orthostatic hypotension. She has been following with the nursing informatics specialist for this problem. She had an echocardiogram in 2020 which showed a borderline ejection fraction of 50%. She has a diagnosis of heart failure associated with normal ejection fraction. She also has moderately severe Parkinson's disease. She does have an implanted brain stimulator. She does have some disorientation. I obtained history both from the patient and from her daughter Nydia. In the past 2 surgery she had 1 of them she did have significant delirium afterwards and some hallucinations. Patient has been encouraged to use a walker which she has not been willing to do that consistently. She will use a walker when she is walking the longer walk from her room to the facility cafeteria but in her room she tends to not use a walker. Patient has also been seen by the nursing informatics specialist Dr. Zambrano this morning and he felt that she would be stable to proceed from a cardiac standpoint with low risk of cardiac complications. He felt no additional workup was necessary to allow her to proceed with surgery at this time. Physical examination On exam today there is no obvious shortening or rotational deformity of the left leg. She does complain of rather severe pain over the anterolateral left hip and grabs this area and it has been hurting a fair amount during the night. She has Tylenol ordered on a scheduled basis and p.r.n. morphine IV. She has had a history of severe mental status changes and ?psychosis ?with hydrocodone. She communicated very easily but when I was explaining what is necessary for the surgery in common terms, she reported that she felt incoherent and passed that I speak to her niece Patti. I also spoke with Patti on the telephone a little while ago. Patti is a surgical nurse with vast experience with orthopedic procedures and understands what is going on. Patient's daughter Nydia is her power returning and is also a retired nurse. She had a 2+ dorsalis pedis pulse she denied numbness to light touch testing left lower extremity and was able to wiggle her toes up and down without difficulty. Also she denied any other injury or pain in any other location other than the anterolateral left hip. Assessment and plan Patient has a very mildly displaced 2 part left intertrochanteric hip fracture with somewhat of an unusual obliquity such that reaches the subcapital femoral neck level anteriorly and 2 cm distal to the lesser trochanter posteriorly. This is best appreciated on the sagittal reconstructions of the CT scan. I have recommended open reduction internal fixation with a trochanteric nail device. I explained the risks of surgery to her daughter Nydia in detail. We discussed that she may have severe medical issues with respect to her heart potentially and there is risk of mortality in the setting in the next several months that is significantly higher than if she had not had this fracture. Risk of severe delirium after surgery was discussed as well as risk of blood clots infection delayed healing and screw cut out. With her neuromuscular disease we will need to protect her weight-bearing somewhat particularly given her osteoporosis. We discussed that she will need to be in rehab for probably at least 6 weeks after surgery as this is the usual time it takes for the fracture to mend. I explained that her orthostatic hypotension may be much worst given the acute blood loss anemia that is expected. Her hemoglobin this morning is already down to 10.4 platelets [id number]. There is significant likelihood she may need a transfusion if her hemoglobin drops too low or if her orthostatic hypotension with hemoglobin less than 8 is severe. For DVT prophylaxis I would prefer to use Lovenox to minimize risk of bleeding complications particularly in light of her chronic renal disease with creatinine clearance of 35. Patient has been wearing SCDs since yesterday continuously. We are scheduled to proceed at approximately 3:30 this afternoon. History of Present Illness HPI Consult date: 06/19/24 Chief complaint: Left hip fracture [facility] Past Medical History Medical History (Updated 06/19/24 @ 12:43 by Ton Almanza MD) Hypokalemia Pulmonary hypertension RVSP of 35-40 Chronic kidney disease Baseline creatinine 0.9-1 Congenital malrotation of intestine Urinary, incontinence, stress female Diastolic dysfunction Echo 11/2020: LV systolic function lower limit of normal, diastolic dysfunction grade 1, EF 50%, mild enlargement of left ventricular cavity, moderate concentric left ventricular hypertrophy, impaired diastolic relaxation grade 1 with an EF visually estimated 50%, [id number] aortic valve regurgitation, [id number] tricuspid regurgitation Kidney stones Parkinson's disease Irritable bowel syndrome Gastroesophageal reflux disease (Unknown) Duplicated urinary collecting system Orthostatic hypotension Hypothyroidism Constipation Anemia Anxiety Depression Osteoporosis Arthritis Surgical History Surgical History Status post deep brain stimulator placement History of lithotripsy History of sacrocolpopexy For symptomatic vaginal vault prolapse. History of bunionectomy of both great toes History of rectal polypectomy History of local excision of skin lesion History of hysterectomy History of bladder surgery Mid urethral sling. History of cholecystectomy History of appendectomy Family History Family History Mother Carcinoma of colon Father Family history of coronary artery disease Sibling Family history of malignant neoplasm of breast Sibling Acute myocardial infarction Other Breast cancer Social History Social History Social History: The patient is as of 2007 and lives in independent living at [facility]. She has 3 daughters. Lifelong nonsmoker. No alcohol or illicit substance abuse. Her daughter Indigo Gallego is her healthcare power of workers compensation attorney. Code status: Full code. Smoking status: Never smoker Alcohol intake: never Substance use: never Substance use type: does not use Do You Feel Safe in your Home?: Yes Lack of Transportation: No Lack of Food: Never True Current Housing: I Have Housing Concerned About Future Housing: No Difficulty Paying Gas/Electric Bills: No Difficulty Paying for Meds: No Currently Unemployed: No Education: Decline to Answer Difficulty w/ Childcare or Family Care: No [place] Occupation/Education: retired Spiritual care concerns: No Meds Home Medications and Allergies Home Medications ?Medication ?Instructions ?Recorded ?Confirmed ?Type carbidopa 25 mg-levodopa 100 mg 1 tablet PO QID 02/11/24 06/18/24 History tablet carbidopa ER 50 mg-levodopa 200 mg 1 tablet PO QHS 02/11/24 06/18/24 History tablet,extended release donepezil 5 mg tablet 5 mg PO HS 02/11/24 06/18/24 History fludrocortisone 0.1 mg tablet 0.1 mg PO DAILY 02/11/24 06/18/24 History folic acid 1 mg tablet 1 mg PO DAILY 02/11/24 06/18/24 History gabapentin 100 mg capsule 100 mg PO HS 02/11/24 06/18/24 History levothyroxine 100 mcg tablet 100 mcg PO DAILY 02/11/24 06/18/24 History midodrine 5 mg tablet 5 mg PO QID 02/11/24 06/18/24 History omeprazole 40 mg capsule,delayed 40 mg PO BID 02/11/24 06/18/24 History release potassium chloride 10 mEq 10 meq PO QID 02/11/24 06/18/24 History tablet,extended release cholecalciferol (vitamin D3) 25 25 mcg PO DAILY 06/18/24 06/18/24 History mcg (1,000 unit) capsule (Vitamin D3) Allergies Allergy/AdvReac Type Severity Reaction Status Date / Time hydrocodone AdvReac Severe psychosis Verified 06/16/24 15:12 Vital Signs Vital Signs - 24 hr 06/18/24 13:31 06/18/24 15:21 06/18/24 20:00 Temperature Pulse Rate 78 72 Respiratory Rate 14 18 Blood Pressure 138/84 167/88 H Pulse Oximetry 97 97 Oxygen Delivery Room Air 06/18/24 22:00 06/19/24 06:00 06/19/24 06:00 Temperature 36.9 C 36.5 C 36.5 C Pulse Rate 70 65 65 Respiratory Rate 16 18 18 Blood Pressure 143/85 H 137/62 137/62 Pulse Oximetry 96 96 96 Oxygen Delivery 06/19/24 08:00 06/19/24 08:32 Temperature Pulse Rate Respiratory Rate Blood Pressure Pulse Oximetry 93 93 Oxygen Delivery Room Air Room Air Results Labs 06/19/24 05:27 06/19/24 05:27 Labs: Abnormal lab results 06/18/24 06/19/24 Range/Units 11:32 05:27 WBC 4.3 L (4.5-10.0) K/mm3 RBC 3.17 L (4.2-5.4) M/mm3 Hgb 10.4 L (12.0-15.0) g/dL Hct 31.5 L (37.0-47.0) % Plt Count 119 L (150-375) k/mm3 Sodium 136 L (137-145) mmol/L BUN 21 H (7-17) mg/dL Estimated GFR 55 L (59 - ) NT-Pro-B Natriuret Pep 2040 H (19.9-100) pg/mL H & H 06/18/24 06/19/24 Range/Units 11:32 05:27 Hgb 11.9 L 10.4 L (12.0-15.0) g/dL Hct 35.4 L 31.5 L (37.0-47.0) % Coagulation 06/18/24 Range/Units 11:32 INR 1.0 All other labs normal.
[2024-06-19] MEDS: PERFLUTREN LIPID MICROSPHERES 1.5 ML VIAL DILUTED TO 10 ML TOTAL VOLUME IV PUSH (13:32)
--- NOTE | 2024-06-19 15:02 | IVDEFINITY ---
Prior to administration of IV Definity the patient was educated on the risks and benefits of the imaging enhancing agent including potential adverse side effects. The patient verbalized understanding. Allergies were verified. No exclusion criteria were identified and at least one of the following inclusion criteria were met: 1) physician request, 2) patient technically difficult to image (per the [place] [employer]ocardi[employer] guidelines of two or more segments not discernable within the apical view), or 3) questionable left ventricular function. ?
--- NOTE | 2024-06-19 17:41 | P.PNAN_ITS ---
Anes - Initial Pre Proc Eval Procedure: Operation Date: 06/19/24 15:30 Proposed Procedures p Left Intertrochanteric Nail - Ton Almanza MD Date/Time: 06/19/24 17:41 Surgeon: Cami Pre Op Diagnosis: Left hip fracture Patient Data Age: 79 Gender: F Height: 1.6 m Weight: 72 kg Last Vital Signs Temp 36.4 C 06/19/24 14:00 Pulse 69 06/19/24 14:00 Resp 18 06/19/24 14:00 BP 132/68 06/19/24 14:00 Pulse Ox 95 06/19/24 14:00 O2 Del Method Room Air 06/19/24 08:32 Allergies Allergy/AdvReac Type Severity Reaction Status Date / Time hydrocodone AdvReac Severe psychosis Verified 06/16/24 15:12 Home Medications ?Medication ?Instructions ?Recorded ?Confirmed ?Type carbidopa 25 mg-levodopa 100 mg 1 tablet PO QID 02/11/24 06/18/24 History tablet carbidopa ER 50 mg-levodopa 200 mg 1 tablet PO QHS 02/11/24 06/18/24 History tablet,extended release donepezil 5 mg tablet 5 mg PO HS 02/11/24 06/18/24 History fludrocortisone 0.1 mg tablet 0.1 mg PO DAILY 02/11/24 06/18/24 History folic acid 1 mg tablet 1 mg PO DAILY 02/11/24 06/18/24 History gabapentin 100 mg capsule 100 mg PO HS 02/11/24 06/18/24 History levothyroxine 100 mcg tablet 100 mcg PO DAILY 02/11/24 06/18/24 History midodrine 5 mg tablet 5 mg PO QID 02/11/24 06/18/24 History omeprazole 40 mg capsule,delayed 40 mg PO BID 02/11/24 06/18/24 History release potassium chloride 10 mEq 10 meq PO QID 02/11/24 06/18/24 History tablet,extended release cholecalciferol (vitamin D3) 25 25 mcg PO DAILY 06/18/24 06/18/24 History mcg (1,000 unit) capsule (Vitamin D3) Laboratory Tests 06/18/24 06/19/24 06/19/24 11:32 05:25 05:27 WBC 4.3 L K/mm3 (4.5-10.0) RBC 3.17 L M/mm3 (4.2-5.4) Hgb 10.4 L g/dL (12.0-15.0) Hct 31.5 L % (37.0-47.0) MCV 99.4 fl (80-100) MCH 32.8 pg (26-34) MCHC 33.0 g/dl (32-36) RDW 12.3 % (11.5-14.5) Plt Count 119 L k/mm3 (150-375) MPV 10.0 fl (7.4-10.4) Immature Gran % (Auto) 0.2 % (0-0.5) Neut % (Auto) 57.2 % (45.5-73.1) Lymph % (Auto) 34.0 % (18.3-44.2) [place] % (Auto) 7.0 % (2.6-8.5) Eos % (Auto) 0.9 % (0-4.4) Baso % (Auto) 0.7 % (0.2-1.2) Lymph # (Auto) 1.45 K/mm3 (0.9-3.2) [place] # (Auto) 0.3 K/mm3 (0.1-0.6) Eos # (Auto) 0.0 K/mm3 (0-0.3) Baso # (Auto) 0.0 K/mm3 (0.0-0.1) Abs Immat Gran (auto) 0.01 K/mm3 (0.00-0.031) Absolute Neuts (auto) 2.4 K/mm3 (1.3-6.7) Absolute Nucleated RBC 0.000 K/mm3 (0.0-0.012) Nucleated RBC % 0.0 % (0.0-0.2) % Immature Plt Fraction 3.2 % (0.9-11.2) Sodium 136 L mmol/L (137-145) Potassium 3.4 mmol/L (3.4-5.0) Chloride 102 mmol/L (98-107) Carbon Dioxide 26 mmol/L (22-30) Anion Gap 8 mmol/L (4-12) BUN 21 H mg/dL (7-17) Creatinine 0.98 mg/dL (0.7-1.0) Estim Creat Clear Calc 35 ml/min Estimated GFR 55 L (59 - ) Glucose 91 mg/dL (65-110) Calcium 8.5 mg/dL (8.4-10.2) NT-Pro-B Natriuret Pep 2040 H pg/mL (19.9-100) TSH (Reflex) 0.767 uIU/mL (0.465-4.68) Patient hx anesthesia problems: none Family hx anesthesia problems: none Results Review: All pre-operative results and documents have been reviewed as part of the pre- operative evaluation. [facility] Past Medical History Medical History (Updated 06/19/24 @ 12:43 by Ton Almanza MD) Hypokalemia Pulmonary hypertension RVSP of 35-40 Chronic kidney disease Baseline creatinine 0.9-1 Congenital malrotation of intestine Urinary, incontinence, stress female Diastolic dysfunction Echo 11/2020: LV systolic function lower limit of normal, diastolic dysfunction grade 1, EF 50%, mild enlargement of left ventricular cavity, moderate concentric left ventricular hypertrophy, impaired diastolic relaxation grade 1 with an EF visually estimated 50%, [id number] aortic valve regurgitation, [id number] tricuspid regurgitation Kidney stones Parkinson's disease Irritable bowel syndrome Gastroesophageal reflux disease (Unknown) Duplicated urinary collecting system Orthostatic hypotension Hypothyroidism Constipation Anemia Anxiety Depression Osteoporosis Arthritis Surgical History Surgical History Status post deep brain stimulator placement History of lithotripsy History of sacrocolpopexy For symptomatic vaginal vault prolapse. History of bunionectomy of both great toes History of rectal polypectomy History of local excision of skin lesion History of hysterectomy History of bladder surgery Mid urethral sling. History of cholecystectomy History of appendectomy Family History Family History Mother Carcinoma of colon Father Family history of coronary artery disease Sibling Family history of malignant neoplasm of breast Sibling Acute myocardial infarction Other Breast cancer Social History Social History Social History: The patient is as of 2007 and lives in independent living at [place]. She has 3 daughters. Lifelong nonsmoker. No alcohol or illicit substance abuse. Her daughter Indigo Gallego is her healthcare power of collections attorney. Code status: Full code. Smoking status: Never smoker Alcohol intake: never Substance use: never Substance use type: does not use Do You Feel Safe in your Home?: Yes Lack of Transportation: No Lack of Food: Never True Current Housing: I Have Housing Concerned About Future Housing: No Difficulty Paying Gas/Electric Bills: No Difficulty Paying for Meds: No Currently Unemployed: No Education: Decline to Answer Difficulty w/ Childcare or Family Care: No [place] Occupation/Education: retired Spiritual care concerns: No Anes - Eval Final PreProcedure Day of Procedure 06/19/24 17:41 Patient weight: overweight Heart: regular rate and rhythm Lungs: clear to auscultation Airway: Mallampati scale class II Neurological: alert and oriented Last oral intake: >/= 8 hours ASA classification: IV Emergent: no Anesthetic plan: proceed Anesthesia type and monitoring: general ETT and standard monitoring Results Review: All pre-operative results and documents have been reviewed as part of the pre- operative evaluation. Informed Consent: The patient's anesthetic plan and its attendant risks and benefits were discussed with the patient/family/POA. Questions were solicited and answers provided to the satisfaction of the patient/family/POA.
[2024-06-19] MEDS: VANCOMYCIN 1,000 MG/NS 250 ML BAG 250 MG IVPB (17:50)
[2024-06-19] MEDS: LACTATED RINGERS 1,000 ML 30 ML IV CONT (17:55)
--- NOTE | 2024-06-19 18:04 | WPDHPUPDATE1 ---
History and Physical Update Update Date/Time: 06/19/24 18:04 History and Physical has been reviewed, including an updated exam of the patient. There are NO changes in the patient's condition. Risks, benefits, and alternatives have been discussed and questions answered. Patient agrees to proceed with procedure.
[2024-06-19] MEDS: TRANEXAMIC ACID 1,000MG/ISO100 1,000 MG/100 ML BAG 200 MG IVPB (18:06)
[2024-06-19] MEDS: ceFAZolin 2 GM/D5W 50 ML 2 GM/50 ML BAG IVPB (18:46)
[2024-06-19] MEDS: ceFAZolin SODIUM 1 GM VIAL IRRIGATION (18:49)
--- NOTE | 2024-06-19 19:51 | W.PM.PROC2 ---
Procedure Note - Detailed Date of Procedure 06/19/24 Pre-op Diagnosis Two part left intertrochanteric subtrochanteric femur fracture. Post-op Diagnosis Same Procedure Performed Open reduction internal fixation left intertrochanteric hip fracture with subtrochanteric extension with Arthrex ES trochanteric nail device Surgeon Ton Almanza MD [employer] Dora Anesthesia General Description of Procedure Patient was brought to the operating room and general anesthesia was administered. The left hip and thigh was scrubbed with the apoorva prep clot this. She received 2 g of Ancef weight based vancomycin 1 g of TXA preoperatively. Soft roll was applied to the left foot cover with Coban she was placed in the traction boot the right hip flexed abducted out of the way. We placed mild traction mostly to stabilize leg neutral rotation. We could see that the displacement was unchanged compared with preop. Was minimally displaced. Additional internal rotation was applied which closed down the anterior fracture gap a little bit. We had appropriate alignment. Left hip and thigh was prepped draped usual fashion car with a shower curtain. A 1.5 in longitudinal incision was made proximal to greater trochanter guide pin inserted into the tip of the greater trochanter under fluoroscopic guidance down the center of the canal position confirmed on AP and lateral fluoroscopic views. The starter awl was applied and inserted and a long guide tenzin inserted on femoral canal. Canal was reamed to 13 mm which achieved minimal chatter. The proximal femur reamed to the 16.5 mm. We chose the 33 cm x 130 degree Arthrex ES nail. This was inserted at the appropriate depth guide pin placed in the center of the femoral head in the AP and lateral views. No change in the reduction of occurred. After hip screw hole was reamed we inserted the 90 mm telescoping lag screw to 10 mm from subchondral bone and this was locked with the locking sleeve and the telescoping locking pin was removed and single interlocking screw was placed in the static mode in the mid shaft hole without difficulty. Final fluoroscopic images were obtained. Wounds were irrigated with antibiotic solution closed with 2 subcutaneous Vicryl and glue EBL was 100 cc. There were no complications. She was stable throughout the procedure hemodynamically no ectopy. She was transferred postop recovery room stable condition. Urine Output 500 AMG Billing Surgery - Charge Forward: Surgery Billing (Intramedullary trochanteric nail device fixation of intertrochanteric hip fracture with subtrochanteric extension)
--- NOTE | 2024-06-19 20:00 | PM.OP ---
Procedure Note - Brief Procedure Note - Brief Date of procedure: 06/19/24 Left hip fracture Procedure performed: ORIF left hip fracture Surgeon: PAULA Blevins Findings: 79-year-old female underwent ORIF of her left intertrochanteric hip fracture on 06/19. I was involved in the procedure including positioning the patient on the OR table in 1st assisting through the time surgery. Total time spent was 2-1/2 hours Urine output (mL): 500
[2024-06-19] MEDS: hydrALAZINE HCL 20 MG/ML VIAL 5 MG IV PUSH ×2 (20:20→20:39)
[2024-06-19] MEDS: fentaNYL CITRATE INJ (*CRX) 100 MCG/2 ML VIAL 25 MCG IV PUSH ×4 (20:29→21:05)
[2024-06-19] MEDS: CARBIDOPA/LEVODOPA 25/100 MG CR TABLET 2 TABLET PO (21:35)
[2024-06-19] MEDS: oxyCODONE HCL (*CRX) 2.5 MG TAB IR PO (21:43)
[2024-06-19] MEDS: DONEPEZIL HCL 5 MG TABLET PO (21:44)
[2024-06-19] MEDS: PANTOPRAZOLE 40 MG TABLET PO (21:44)
[2024-06-19] MEDS: SODIUM CHLORIDE 0.9% IV 1,000 ML 125 ML IV CONT (21:44)
[2024-06-19] MEDS: GABAPENTIN 100 MG CAPSULE PO (21:44)
[2024-06-20] VITALS (7 sets, daily range): BP systolic 112–152; BP diastolic 63–84; PULSE 68–75; RESP 16–18; TEMP 36.2–37.1; O2SAT 93–98
[2024-06-20] MEDS: ACETAMINOPHEN 325 MG TABLET 650 MG PO ×4 (00:45→17:39)
[2024-06-20] MEDS: oxyCODONE HCL (*CRX) 2.5 MG TAB IR PO ×6 (00:45→21:08)
[2024-06-20] MEDS: CARBIDOPA/LEVODOPA 25/100 MG TABLET 1 TABLET PO ×4 (01:12→16:53)
[2024-06-20] MEDS: ceFAZolin 2 GM/D5W 50 ML 2 GM/50 ML BAG IVPB ×3 (03:10→17:09)
[2024-06-20] MEDS: VANCOMYCIN 1,000 MG/NS 250 ML 1,000 MG/250 ML BAG 250 MG IVPB ×2 (05:16→17:39)
[2024-06-20] MEDS: LEVOTHYROXINE SODIUM 100 MCG TABLET PO (05:22)
[2024-06-20] MEDS: SODIUM CHLORIDE 0.9% IV 1,000 ML 125 ML IV CONT (05:30)
[2024-06-20 05:57] LABS: Basophils Percent Auto 0.2 % (0.2-1.2); Hematocrit 30.1 % (37.0-47.0); Hemoglobin 10.3 g/dL (12.0-15.0); Immature Granulocyte Absolute 0.05 K/mm3 (0.00-0.031); Immature Granulocyte Percent A 1.2 % (0-0.5); Immature Platelet Fraction Pct 3.2 % (0.9-11.2); Lymphocytes Absolute Auto 0.49 K/mm3 (0.9-3.2); Lymphocytes Percent Auto 11.6 % (18.3-44.2); Mean Corpuscular HGB Conc 34.2 g/dl (32-36); Mean Corpuscular Volume 96.5 fl (80-100); Mean Platelet Volume 10.1 fl (7.4-10.4); Monocytes Absolute Auto 0.1 K/mm3 (0.1-0.6); Monocytes Percent Auto 3.3 % (2.6-8.5); Neutrophils Absolute Auto 3.5 K/mm3 (1.3-6.7); Neutrophils Percent Auto 83.7 % (45.5-73.1); Platelet Count Result 98 k/mm3 (150-375); Red Blood Count 3.12 M/mm3 (4.2-5.4); Red Cell Distribution Width 12.2 % (11.5-14.5); White Blood Count 4.2 K/mm3 (4.5-10.0)
[2024-06-20 06:14] LABS: Alanine Aminotransferase 7 U/L (6-35); Albumin Level 3.4 g/dL (3.5-5.1); Alkaline Phosphatase 84 U/L (38-126); Anion Gap 6 mmol/L (4-12); Aspartate Amino Transferase 16 U/L (14-36); Blood Urea Nitrogen 19 mg/dL (7-17); Calcium 8.5 mg/dL (8.4-10.2); Carbon Dioxide 28 mmol/L (22-30); Chloride 102 mmol/L (98-107); Estimated CRCL calculation 42 ml/min; Estimated Glomerular Filt Rate 57; Glucose 135 mg/dL (65-110); Potassium 3.6 mmol/L (3.4-5.0); Sodium 136 mmol/L (137-145)
--- NOTE | 2024-06-20 08:01 | P.PNIM_ITS ---
Progress Note: A&P Assessment and Plan (1) Fall: Code(s): W19.XXXA - Unspecified fall, initial encounter Status: Acute Assessment and Plan: History of orthostatic hypotension and syncope Patient unsure what caused her to fall or if she had a head strike or LOC Not anticoagulated Telemetry Orthostatic vital signs when able to obtain Head CT: No acute intracranial findings Chest XR: Minimal opacification in the left lung base which may indicate atelectasis versus pneumonia Likely atelectasis as patient is afebrile without leukocytosis and remains asymptomatic. Incentive spirometer ordered. C spine CT: No acute osseous abnormality of the cervical spine however multiple degenerative disc disease noted Hip/pelvis XR: Redemonstration of a left femoral neck fracture Hip CT: Left femoral neck fracture extending to the lesser trochanter See plan for fracture femoral neck #2 below for further plan (2) Fracture of femoral neck, left: Code(s): S72.002A - Fracture of unspecified part of neck of left femur, initial encounter for closed fracture Status: Inactive Assessment and Plan: - Hip/pelvis XR: Redemonstration of a left femoral neck fracture - Hip CT: Left femoral neck fracture extending to the lesser trochanter - Analgesics - PT/OT per ortho recommendations - Ortho consulted Cardiology consulted per ortho for surgical clearance S/p ORIF left intertrochanteric hip fracture with subtrochanteric extension with Arthrex ES trochanteric nail device on 06/[address] Almanza (3) Heart failure with reduced ejection fraction: Code(s): I50.20 - Unspecified systolic (congestive) heart failure Status: Acute Assessment and Plan: - Echo: LVEF 45-50% with moderate aortic regurgitation Seemingly unchanged from 12/06/20: EF est 50% - Monitor vital signs, I&Os, BUN/creatinine, daily weights, neuro status and patient is a fall risk - Monitor serum electrolytes, Keep serum Potassium>4 and serum Magnesium>2 and CBC (4) Recurrent syncope: Code(s): R55 - Syncope and collapse Status: Acute Assessment and Plan: Secondary to orthostatic hypotension Tele Continue orthostatic hypotension medications as below #4 orthostatic hypotension Continue home medications: florinef 0.1 mg daily, patient has not received midodrine 5 mg QID since admission for NPO and elevated blood pressure Echo: LVEF 45-50% with moderate aortic regurgitation (5) Orthostatic hypotension: Code(s): I95.1 - Orthostatic hypotension Status: Chronic Assessment and Plan: Chronic Continue home medications: florinef 0.1 mg daily, patient has not received midodrine 5 mg QID since admission for NPO and elevated blood pressure Continue to monitor, BP elevation likely secondary to pain. Monitor (6) Hypothyroidism: Qualifiers: Hypothyroidism type: acquired Qualified Code(s): E03.9 - Hypothyroidism, unspecified Code(s): E03.9 - Hypothyroidism, unspecified Status: Chronic Assessment and Plan: Chronic Continue synthroid 100 mcg daily TSH WNL (7) Parkinson's disease: Code(s): G20 - Parkinson's disease Status: Acute Assessment and Plan: Chronic s/p brain stimulator placement Continue carbidopa/levodopa and Aricept Time Spent With Patient Time with patient: 25 - 35 minutes Subjective Date/time seen: 06/20/24 08:01 Interval history: 79 year old female with past medical history of CKD, diastolic dysfunction, GERD, hypothyroidism, orthostatic hypotension, and Parkinson with deep brain stimulator presents to the hospital following a ground level fall resulting in left hip pain. Patient is pleasant lying comfortably in bed. She has no complaints at this time denying chest pain, shortness of breath, palpitations, nausea/vomiting, abdominal pain, and tingling/numbness to the lower extremity. Review of Systems Review of Systems: All systems reviewed & are unremarkable except as noted in HPI and below Exam Narrative: AF HR 68 RR 16 Spo2 98 BP 152/80 General: female in no acute respiratory distress who is nontoxic appearing, lying semi recumbent in bed. HEENT: Normocephalic. Atraumatic. Extraocular movement intact. Sclera clear and anicteric. No facial asymmetry. Chest: Lungs are clear to auscultation bilaterally. CV: Heart was regular rate and rhythm. Abd: Abdomen was soft. Nontender. Nondistended. Positive bowel sounds. Ext: No clubbing, cyanosis. DP pulses bilaterally. Edema to left hip. Dressing clean/dry/intact. Wiggling toes. Neuro: Patient is alert and oriented x3. Speech is clear. Dyskinesia has much improved, subtle tremors. Objective Data Vital Signs Vital Signs: Vital Signs - 24 hr 06/19/24 08:32 06/19/24 14:00 06/19/24 17:14 Temperature 97.6 F 98.5 F Pulse Rate 69 73 Respiratory Rate 18 16 Blood Pressure 132/68 186/98 H Pulse Oximetry 93 95 94 Oxygen Delivery Room Air Room Air Oxygen Flow Rate 06/19/24 19:52 06/19/24 20:00 06/19/24 20:15 Temperature 97.0 F L Pulse Rate 63 67 70 Respiratory Rate 15 14 15 Blood Pressure 158/81 H 179/91 H 180/92 H Pulse Oximetry 100 98 100 Oxygen Delivery Simple Face Mask Simple Face Mask Simple Face Mask Oxygen Flow Rate 8 8 8 06/19/24 20:30 06/19/24 20:36 06/19/24 20:45 Temperature Pulse Rate 77 82 Respiratory Rate 13 13 Blood Pressure 185/108 H 188/95 H 156/88 H Pulse Oximetry 99 94 Oxygen Delivery Simple Face Mask Room Air Oxygen Flow Rate 8 06/19/24 20:51 06/19/24 21:00 06/19/24 21:25 Temperature 97.2 F L Pulse Rate 83 84 Respiratory Rate 17 18 Blood Pressure 155/76 H 151/74 H 155/85 H Pulse Oximetry 92 92 Oxygen Delivery Room Air Oxygen Flow Rate 06/19/24 21:40 06/19/24 22:10 06/19/24 23:10 Temperature 97.1 F L 97.3 F L 97.4 F L Pulse Rate 83 89 76 Respiratory Rate 18 16 18 Blood Pressure 161/82 H 154/79 H 135/72 Pulse Oximetry 93 94 96 Oxygen Delivery Oxygen Flow Rate 06/20/24 02:35 06/20/24 05:45 Temperature 97.8 F 97.1 F L Pulse Rate 73 75 Respiratory Rate 16 16 Blood Pressure 138/71 127/63 Pulse Oximetry 93 93 Oxygen Delivery Oxygen Flow Rate Intake/Output Intake/Output: Intake & Output 06/17/24 06/18/24 06/19/24 06/20/24 23:59 23:59 23:59 23:59 Intake Total 200 1050 1410.8 Output Total 200 2400 1400 Balance 0 -1350 10.8 Meds/Results Medications: Active Medications Generic Name Dose Route Start Last Admin Trade Name Freq PRN Reason Stop Dose Admin Acetaminophen 650 mg 06/18/24 18:00 06/20/24 05:20 Acetaminophen 325 Mg Tablet PO 650 mg Q6HR NICOLE Administration Carbidopa/Levodopa 2 tablet 06/18/24 21:00 06/19/24 21:35 Carbidopa/Levodopa 25/100 Mg Cr Tablet PO 2 tablet QHS NICOLE Administration Carbidopa/Levodopa 1 tablet 06/20/24 09:00 Carbidopa/Levodopa 25/100 Mg Tablet PO TID NICOLE Cefdinir 300 mg 06/21/24 09:00 Cefdinir 300 Mg Capsule PO 06/23/24 21:01 Q12HR NICOLE Donepezil HCl 5 mg 06/18/24 21:00 06/19/24 21:44 Donepezil Hcl 5 Mg Tablet PO 5 mg HS NICOLE Administration Enoxaparin Sodium 40 mg 06/20/24 09:00 Enoxaparin 40 Mg/0.4 Ml Syringe SUB-Q DAILY NICOLE Fludrocortisone Acetate 0.1 mg 06/19/24 09:00 06/19/24 08:50 Fludrocortisone Acetate 0.1 Mg Tablet PO 0.1 mg DAILY NICOLE Administration Folic Acid 1 mg 06/20/24 09:00 Folic Acid 1 Mg Tablet PO DAILY NICOLE Gabapentin 100 mg 06/18/24 21:00 06/19/24 21:44 Gabapentin 100 Mg Capsule PO 100 mg HS NICOLE Administration Cefazolin Sodium 2 gm in 50 mls @ 100 mls/hr 06/20/24 03:00 06/20/24 03:10 Ancef 2 Gm/D5w 50 Ml IVPB 06/20/24 19:29 100 mls/hr Q8H NICOLE Administration Vancomycin HCl 1,000 mg in 250 mls @ 250 mls/hr 06/20/24 06:00 06/20/24 05:16 Vancomycin 1,000 Mg/Ns 250 Ml IVPB 06/20/24 18:59 250 mls/hr Q12H NICOLE Administration Sodium Chloride 1,000 mls @ 125 mls/hr 06/19/24 21:06 06/20/24 05:30 Normal Saline Iv IV CONT 125 mls/hr .Q8H NICOLE Administration Levothyroxine Sodium 100 mcg 06/19/24 06:30 06/20/24 05:22 Levothyroxine Sodium 100 Mcg Tablet PO 100 mcg DAILY@0630 NICOLE Administration Midodrine 5 mg 06/18/24 21:00 06/19/24 22:37 Midodrine Hcl 2.5 Mg Tablet PO Not Given QID NICOLE Morphine Sulfate 2 mg 06/19/24 19:59 Morphine Sulfate (*Crx) 2 Mg/Ml Inj IV PUSH Q1H PRN Pain Rated 7-10 Morphine Sulfate 2 mg 06/19/24 21:06 Morphine Sulfate (*Crx) 2 Mg/Ml Inj IV PUSH Q2H PRN Breakthrough Pain Rated 4-6 or NPO Naloxone HCl 0.1 mg 06/19/24 19:59 Naloxone Hcl 0.4 Mg/Ml Vial IV PUSH Q2M PRN Opiate Reversal Ondansetron HCl 4 mg 06/19/24 21:06 Ondansetron Inj 4 Mg/2 Ml Vial IV PUSH Q4H PRN Nausea And Vomiting Oxycodone HCl 2.5 mg 06/19/24 21:00 06/20/24 05:20 Oxycodone Hcl (*Crx) 2.5 Mg Tab Ir PO 2.5 mg Q4H NICOLE Administration Oxycodone HCl 2.5 mg 06/19/24 21:06 Oxycodone Hcl (*Crx) 2.5 Mg Tab Ir PO Q4H PRN Pain Rated 4-6 Pantoprazole Sodium 40 mg 06/19/24 09:00 06/19/24 21:44 Pantoprazole 40 Mg Tablet PO 40 mg Q12HR [facility] Administration Polyethylene Glycol 17 gm 06/20/24 09:00 Polyethylene Glycol 3350 17 Gm Powd.Pack PO QAM [facility] Potassium Chloride 10 meq 06/19/24 21:00 06/19/24 21:47 Potassium Chloride 10 Meq Er Tablet PO Not Given QID [facility] Senna/Docusate Sodium 2 tab 06/20/24 09:00 Senna/Docusate Sodium Tablet PO Q12HR [facility] Vitamin D 1,000 units 06/20/24 09:00 Cholecalciferol 1,000 Units Tablet PO DAILY [facility] Radiology Results: ITS Impressions Head CT 06/18/24 11:11 IMPRESSION: No acute intracranial findings. Chest X-Ray 06/18/24 11:17 IMPRESSION: Minimal opacification in the left lung base which may indicate atelectasis versus pneumonia. Follow-up advised. Cervical Spine CT 06/18/24 11:30 IMPRESSION: No acute osseous abnormality cervical spine. Multilevel degenerative disc disease. Hip CT 06/18/24 12:44 IMPRESSION: Left femoral neck fracture extending to the lesser trochanter Hip/Pelvis X-Ray 06/18/24 16:29 IMPRESSION: Redemonstration of a left femoral neck fracture, better visualized on the CT examination performed less than 4 hours earlier. Labs Labs: Laboratory Results - last 24 hr 06/20/24 05:47 WBC 4.2 L RBC 3.12 L Hgb 10.3 L Hct 30.1 L MCV 96.5 MCH 33.0 MCHC 34.2 RDW 12.2 Plt Count 98 L MPV 10.1 Immature Gran % (Auto) 1.2 H Neut % (Auto) 83.7 H Lymph % (Auto) 11.6 L [place] % (Auto) 3.3 Eos % (Auto) 0.0 Baso % (Auto) 0.2 Lymph # (Auto) 0.49 L [place] # (Auto) 0.1 Eos # (Auto) 0.0 Baso # (Auto) 0.0 Abs Immat Gran (auto) 0.05 H Absolute Neuts (auto) 3.5 Absolute Nucleated RBC 0.000 Nucleated RBC % 0.0 % Immature Plt Fraction 3.2 Sodium 136 L Potassium 3.6 Chloride 102 Carbon Dioxide 28 Anion Gap 6 BUN 19 H Creatinine 0.95 Estim Creat Clear Calc 42 Estimated GFR 57 L Glucose 135 H Calcium 8.5 Total Bilirubin 1.0 AST 16 ALT 7 Alkaline Phosphatase 84 Total Protein 6.0 L Albumin 3.4 L Quality VTE Prophylaxis VTE prophylaxis: mechanical ordered and pharmacologic ordered
[2024-06-20] MEDS: polyethylene glycoL 3350 17 GM POWD.PACK PO (08:11)
[2024-06-20] MEDS: FLUDROCORTISONE ACETATE 0.1 MG TABLET PO (08:12)
[2024-06-20] MEDS: CHOLECALCIFEROL 1,000 UNITS TABLET 1000 UNITS PO (08:12)
[2024-06-20] MEDS: SENNA/DOCUSATE SODIUM TABLET 2 TAB PO ×2 (08:12→21:08)
[2024-06-20] MEDS: FOLIC ACID 1 MG TABLET PO (08:12)
[2024-06-20] MEDS: PANTOPRAZOLE 40 MG TABLET PO ×2 (08:12→21:07)
[2024-06-20] MEDS: POTASSIUM CHLORIDE 10 MEQ ER TABLET PO ×2 (08:13→12:07)
--- NOTE | 2024-06-20 10:12 | P.PNAN_ITS ---
Anes - Prog Note Post-Op Date/Time: 06/20/24 10:12 Cardiovascular status: normal Respiratory status: normal Airway patency: baseline Mental status: baseline Post-Op hydration status: normal Vital Signs: Last Vital Signs Temp 97.3 F L 06/20/24 08:00 Pulse 68 06/20/24 08:13 Resp 16 06/20/24 08:00 BP 152/80 H 06/20/24 08:13 Pulse Ox 94 06/20/24 08:13 O2 Del Method Room Air 06/20/24 08:23 O2 Flow Rate 8 06/19/24 20:30 Pain Score (VAS): 0/10 I/O: Intake & Output 06/19/24 06/20/24 06/20/24 23:59 07:59 15:59 Intake Total 50 1410.8 0 Output Total 1400 1400 Balance -1350 10.8 0 Laboratory Tests 06/20/24 05:47 06/20/24 05:47 06/20/24 05:47 WBC 4.2 L RBC 3.12 L Hgb 10.3 L Hct 30.1 L MCV 96.5 MCH 33.0 MCHC 34.2 RDW 12.2 Plt Count 98 L MPV 10.1 Immature Gran % (Auto) 1.2 H Neut % (Auto) 83.7 H Lymph % (Auto) 11.6 L [place] % (Auto) 3.3 Eos % (Auto) 0.0 Baso % (Auto) 0.2 Lymph # (Auto) 0.49 L [place] # (Auto) 0.1 Eos # (Auto) 0.0 Baso # (Auto) 0.0 Abs Immat Gran (auto) 0.05 H Absolute Neuts (auto) 3.5 Absolute Nucleated RBC 0.000 Nucleated RBC % 0.0 % Immature Plt Fraction 3.2 Sodium 136 L Potassium 3.6 Chloride 102 Carbon Dioxide 28 Anion Gap 6 BUN 19 H Creatinine 0.95 Estim Creat Clear Calc 42 Estimated GFR 57 L Glucose 135 H Calcium 8.5 Total Bilirubin 1.0 AST 16 ALT 7 Alkaline Phosphatase 84 Total Protein 6.0 L Albumin 3.4 L Post-procedural complaints: none Patient Feedback: Patient satisfied with anesthetic care.
--- NOTE | 2024-06-20 11:51 | PC.NURSE ---
Carina MITCHELL notified of holding am lovenox due to low plt of 98 and holding midodrine due to elevated bp.
--- NOTE | 2024-06-20 12:18 | P.PNOP_ITS ---
Progress Note: A&P Assessment and Plan (1) Closed intertrochanteric fracture of left hip: Qualifiers: Encounter type: initial encounter Fracture alignment: displaced Qualified Code(s): S72.142A - Displaced intertrochanteric fracture of left femur, initial encounter for closed fracture Code(s): S72.142A - Displaced intertrochanteric fracture of left femur, initial encounter for closed fracture Status: Acute Assessment and Plan: Patient is postop day 1 after internal fixation left intertrochanteric hip fracture with subtrochanteric extension. She was quite comfortable at rest this morning. She did remember my name. He is going to be mobilized Physical therapy[place] [address]. It was 119,000 preop yesterday. This is likely due to consumption associated with the amount of bleeding 1 has with this type of fracture. We did note at time of surgery she had extensive ecchymosis in the cheek of the left buttock already. Creatinine clearance improved to 42 mL/minute. GFR 57. Patient will start on Lovenox 40 mg daily today. Her wound shows no signs of drainage. She wiggled her toes up and down and denied numbness in left foot. Subjective Subjective Date/Time Seen: 06/20/24 12:18 Objective Data Vital Signs Vital Signs: Vital Signs - 24 hr 06/19/24 14:00 06/19/24 17:14 06/19/24 19:52 Temperature 36.4 C 36.9 C 36.1 C L Pulse Rate 69 73 63 Respiratory Rate 18 16 15 Blood Pressure 132/68 186/98 H 158/81 H Pulse Oximetry 95 94 100 Oxygen Delivery Room Air Simple Face Mask Oxygen Flow Rate 8 06/19/24 20:00 06/19/24 20:15 06/19/24 20:30 Temperature Pulse Rate 67 70 77 Respiratory Rate 14 15 13 Blood Pressure 179/91 H 180/92 H 185/108 H Pulse Oximetry 98 100 99 Oxygen Delivery Simple Face Mask Simple Face Mask Simple Face Mask Oxygen Flow Rate 8 8 8 06/19/24 20:36 06/19/24 20:45 06/19/24 20:51 Temperature Pulse Rate 82 Respiratory Rate 13 Blood Pressure 188/95 H 156/88 H 155/76 H Pulse Oximetry 94 Oxygen Delivery Room Air Oxygen Flow Rate 06/19/24 21:00 06/19/24 21:25 06/19/24 21:40 Temperature 36.2 C L 36.2 C L Pulse Rate 83 84 83 Respiratory Rate 17 18 18 Blood Pressure 151/74 H 155/85 H 161/82 H Pulse Oximetry 92 92 93 Oxygen Delivery Room Air Oxygen Flow Rate 06/19/24 22:10 06/19/24 23:10 06/20/24 02:35 Temperature 36.3 C L 36.3 C L 36.6 C Pulse Rate 89 76 73 Respiratory Rate 16 18 16 Blood Pressure 154/79 H 135/72 138/71 Pulse Oximetry 94 96 93 Oxygen Delivery Oxygen Flow Rate 06/20/24 05:45 06/20/24 08:00 06/20/24 08:00 Temperature 36.2 C L 36.3 C L Pulse Rate 75 69 Respiratory Rate 16 16 Blood Pressure 127/63 148/78 H Pulse Oximetry 93 95 94 Oxygen Delivery Room Air Oxygen Flow Rate 06/20/24 08:13 06/20/24 08:23 Temperature Pulse Rate 68 Respiratory Rate Blood Pressure 152/80 H Pulse Oximetry 94 Oxygen Delivery Room Air Oxygen Flow Rate Intake/Output Intake/Output: Intake & Output 06/17/24 06/18/24 06/19/24 06/20/24 23:59 23:59 23:59 23:59 Intake Total 200 1050 1460.8 Output Total 200 2400 1400 Balance 0 -1350 60.8 Meds/Results Medications: Active Medications Generic Name Dose Route Start Last Admin Trade Name Freq PRN Reason Stop Dose Admin Acetaminophen 650 mg 06/18/24 18:00 06/20/24 11:30 Acetaminophen 325 Mg Tablet PO 650 mg Q6HR NICOLE Administration Carbidopa/Levodopa 2 tablet 06/18/24 21:00 06/19/24 21:35 Carbidopa/Levodopa 25/100 Mg Cr Tablet PO 2 tablet QHS NICOLE Administration Carbidopa/Levodopa 1 tablet 06/20/24 09:00 06/20/24 12:07 Carbidopa/Levodopa 25/100 Mg Tablet PO 1 tablet TID NICOLE Administration Cefdinir 300 mg 06/21/24 09:00 Cefdinir 300 Mg Capsule PO 06/23/24 21:01 Q12HR NICOLE Donepezil HCl 5 mg 06/18/24 21:00 06/19/24 21:44 Donepezil Hcl 5 Mg Tablet PO 5 mg HS NICOLE Administration Enoxaparin Sodium 40 mg 06/20/24 09:00 06/20/24 11:49 Enoxaparin 40 Mg/0.4 Ml Syringe SUB-Q Not Given DAILY [facility] Fludrocortisone Acetate 0.1 mg 06/19/24 09:00 06/20/24 08:12 Fludrocortisone Acetate 0.1 Mg Tablet PO 0.1 mg DAILY NICOLE Administration Folic Acid 1 mg 06/20/24 09:00 06/20/24 08:12 Folic Acid 1 Mg Tablet PO 1 mg DAILY NICOLE Administration Gabapentin 100 mg 06/18/24 21:00 06/19/24 21:44 Gabapentin 100 Mg Capsule PO 100 mg HS NICOLE Administration Cefazolin Sodium 2 gm in 50 mls @ 100 mls/hr 06/20/24 03:00 06/20/24 10:46 Ancef 2 Gm/D5w 50 Ml IVPB 06/20/24 19:29 100 mls/hr Q8H NICOLE Administration Vancomycin HCl 1,000 mg in 250 mls @ 250 mls/hr 06/20/24 06:00 06/20/24 05:16 Vancomycin 1,000 Mg/Ns 250 Ml IVPB 06/20/24 18:59 250 mls/hr Q12H NICOLE Administration Levothyroxine Sodium 100 mcg 06/19/24 06:30 06/20/24 05:22 Levothyroxine Sodium 100 Mcg Tablet PO 100 mcg DAILY@0630 [facility] Administration Midodrine 5 mg 06/18/24 21:00 06/20/24 11:49 Midodrine Hcl 2.5 Mg Tablet PO Not Given QID [facility] Morphine Sulfate 2 mg 06/19/24 19:59 Morphine Sulfate (*Crx) 2 Mg/Ml Inj IV PUSH Q1H PRN Pain Rated 7-10 Morphine Sulfate 2 mg 06/19/24 21:06 Morphine Sulfate (*Crx) 2 Mg/Ml Inj IV PUSH Q2H PRN Breakthrough Pain Rated 4-6 or NPO Naloxone HCl 0.1 mg 06/19/24 19:59 Naloxone Hcl 0.4 Mg/Ml Vial IV PUSH Q2M PRN Opiate Reversal Ondansetron HCl 4 mg 06/19/24 21:06 Ondansetron Inj 4 Mg/2 Ml Vial IV PUSH Q4H PRN Nausea And Vomiting Oxycodone HCl 2.5 mg 06/19/24 21:00 06/20/24 12:07 Oxycodone Hcl (*Crx) 2.5 Mg Tab Ir PO 2.5 mg Q4H NICOLE Administration Oxycodone HCl 2.5 mg 06/19/24 21:06 Oxycodone Hcl (*Crx) 2.5 Mg Tab Ir PO Q4H PRN Pain Rated 4-6 Pantoprazole Sodium 40 mg 06/19/24 09:00 06/20/24 08:12 Pantoprazole 40 Mg Tablet PO 40 mg Q12HR NICOLE Administration Polyethylene Glycol 17 gm 06/20/24 09:00 06/20/24 08:11 Polyethylene Glycol 3350 17 Gm Powd.Pack PO 17 gm QAM NICOLE Administration Potassium Chloride 10 meq 06/19/24 21:00 06/20/24 12:07 Potassium Chloride 10 Meq Er Tablet PO 10 meq QID NICOLE Administration Senna/Docusate Sodium 2 tab 06/20/24 09:00 06/20/24 08:12 Senna/Docusate Sodium Tablet PO 2 tab Q12HR NICOLE Administration Vitamin D 1,000 units 06/20/24 09:00 06/20/24 08:12 Cholecalciferol 1,000 Units Tablet PO 1,000 units DAILY NICOLE Administration Radiology Results: ITS Impressions Head CT 06/18/24 11:11 IMPRESSION: No acute intracranial findings. Chest X-Ray 06/18/24 11:17 IMPRESSION: Minimal opacification in the left lung base which may indicate atelectasis versus pneumonia. Follow-up advised. Cervical Spine CT 06/18/24 11:30 IMPRESSION: No acute osseous abnormality cervical spine. Multilevel degenerative disc disease. Hip CT 06/18/24 12:44 IMPRESSION: Left femoral neck fracture extending to the lesser trochanter Hip/Pelvis X-Ray 06/18/24 16:29 IMPRESSION: Redemonstration of a left femoral neck fracture, better visualized on the CT examination performed less than 4 hours earlier. Labs Labs: Laboratory Results - last 24 hr 06/20/24 05:47 WBC 4.2 L RBC 3.12 L Hgb 10.3 L Hct 30.1 L MCV 96.5 MCH 33.0 MCHC 34.2 RDW 12.2 Plt Count 98 L MPV 10.1 Immature Gran % (Auto) 1.2 H Neut % (Auto) 83.7 H Lymph % (Auto) 11.6 L [place] % (Auto) 3.3 Eos % (Auto) 0.0 Baso % (Auto) 0.2 Lymph # (Auto) 0.49 L [place] # (Auto) 0.1 Eos # (Auto) 0.0 Baso # (Auto) 0.0 Abs Immat Gran (auto) 0.05 H Absolute Neuts (auto) 3.5 Absolute Nucleated RBC 0.000 Nucleated RBC % 0.0 % Immature Plt Fraction 3.2 Sodium 136 L Potassium 3.6 Chloride 102 Carbon Dioxide 28 Anion Gap 6 BUN 19 H Creatinine 0.95 Estim Creat Clear Calc 42 Estimated GFR 57 L Glucose 135 H Calcium 8.5 Total Bilirubin 1.0 AST 16 ALT 7 Alkaline Phosphatase 84 Total Protein 6.0 L Albumin 3.4 L
[2024-06-20] MEDS: MIDODRINE HCL 2.5 MG TABLET 5 MG PO ×2 (16:53→21:07)
[2024-06-20] MEDS: GABAPENTIN 100 MG CAPSULE PO (21:07)
[2024-06-20] MEDS: CARBIDOPA/LEVODOPA 25/100 MG CR TABLET 2 TABLET PO (21:07)
[2024-06-20] MEDS: DONEPEZIL HCL 5 MG TABLET PO (21:07)
[2024-06-21] MEDS: oxyCODONE HCL (*CRX) 2.5 MG TAB IR PO ×4 (01:39→12:39)
[2024-06-21] MEDS: POTASSIUM CHLORIDE 10 MEQ ER TABLET PO ×3 (01:40→12:39)
[2024-06-21] MEDS: ACETAMINOPHEN 325 MG TABLET 650 MG PO ×3 (01:40→12:39)
[2024-06-21 05:31] LABS: Hematocrit 29.3 % (37.0-47.0); Hemoglobin 9.6 g/dL (12.0-15.0); Immature Platelet Fraction Pct 3.1 % (0.9-11.2); Mean Corpuscular HGB Conc 32.8 g/dl (32-36); Mean Corpuscular Hemoglobin 32.7 pg (26-34); Mean Corpuscular Volume 99.7 fl (80-100); Mean Platelet Volume 10.2 fl (7.4-10.4); Platelet Count Result 107 k/mm3 (150-375); Red Blood Count 2.94 M/mm3 (4.2-5.4); Red Cell Distribution Width 12.5 % (11.5-14.5); White Blood Count 4.3 K/mm3 (4.5-10.0)
[2024-06-21 05:41] LABS: Alanine Aminotransferase 6 U/L (6-35); Albumin Level 3.2 g/dL (3.5-5.1); Alkaline Phosphatase 77 U/L (38-126); Anion Gap 8 mmol/L (4-12); Aspartate Amino Transferase 14 U/L (14-36); Bilirubin,Total 0.8 mg/dL (0.2-1.3); Blood Urea Nitrogen 24 mg/dL (7-17); Calcium 8.3 mg/dL (8.4-10.2); Carbon Dioxide 25 mmol/L (22-30); Chloride 104 mmol/L (98-107); Estimated CRCL calculation 41 ml/min; Estimated Glomerular Filt Rate 55; Glucose 95 mg/dL (65-110); Potassium 3.5 mmol/L (3.4-5.0); Sodium 137 mmol/L (137-145)
[2024-06-21 06:03] VITALS: BP 161/96; PULSE 75; RESP 16; TEMP 36.3; O2SAT 95
[2024-06-21] MEDS: LEVOTHYROXINE SODIUM 100 MCG TABLET PO (06:15)
--- NOTE | 2024-06-21 08:32 | P.PNOP_ITS ---
Progress Note: A&P Assessment and Plan (1) Closed intertrochanteric fracture of left hip: Qualifiers: Encounter type: initial encounter Fracture alignment: displaced Qualified Code(s): S72.142A - Displaced intertrochanteric fracture of left femur, initial encounter for closed fracture Code(s): S72.142A - Displaced intertrochanteric fracture of left femur, initial encounter for closed fracture Status: Acute Assessment and Plan: Patient is postop day 2 after internal fixation of left intertrochanteric hip fracture with subtrochanteric extension. She has no bleeding or drainage of the incisions. Hemoglobin today 9.6. Creatinine clearance unchanged 41. Creatinine 0.98. Her leg shows no swelling except for mild swelling in the hip and proximal thigh area. Her mental status today is unchanged. She knew the year was 2024 she knew my name and she knew she was at [facility] after thinking about this a little bit. However she could not articulate why she was here the hospital and I reminded her. The nurse advised me that she did not do very well with physical therapy yesterday as she had a difficult time following commands and verbal cues. She was up the chair. Patient complained to me that there were man in her room. She said it was not the physical therapist when I suggested that might be who she was referring to and it was not nurses. I suspect she may have had a hallucination but I cannot be certain 1 way or the other if she could not elaborate on who these men were or recall when she saw these men exactly. Subjective Subjective Date/Time Seen: 06/21/24 08:32 Objective Data Vital Signs Vital Signs: Vital Signs - 24 hr 06/20/24 13:45 06/20/24 20:00 06/20/24 20:24 Temperature 36.2 C L 37.1 C Pulse Rate 68 73 73 Respiratory Rate 18 18 18 Blood Pressure 112/78 114/84 Pulse Oximetry 94 98 98 Oxygen Delivery Room Air 06/21/24 06:03 Temperature 36.3 C L Pulse Rate 75 Respiratory Rate 16 Blood Pressure 161/96 H Pulse Oximetry 95 Oxygen Delivery Intake/Output Intake/Output: Intake & Output 06/18/24 06/19/24 06/20/24 06/21/24 23:59 23:59 23:59 23:59 Intake Total 200 1050 2000.8 200 Output Total 200 2400 1400 1000 Balance 0 -1350 600.8 -800 Meds/Results Medications: Active Medications Generic Name Dose Route Start Last Admin Trade Name Freq PRN Reason Stop Dose Admin Acetaminophen 650 mg 06/18/24 18:00 06/21/24 06:15 Acetaminophen 325 Mg Tablet PO 650 mg Q6HR NICOLE Administration Carbidopa/Levodopa 2 tablet 06/18/24 21:00 06/20/24 21:07 Carbidopa/Levodopa 25/100 Mg Cr Tablet PO 2 tablet QHS NICOLE Administration Carbidopa/Levodopa 1 tablet 06/20/24 09:00 06/20/24 16:53 Carbidopa/Levodopa 25/100 Mg Tablet PO 1 tablet TID NICOLE Administration Cefdinir 300 mg 06/21/24 09:00 Cefdinir 300 Mg Capsule PO 06/23/24 21:01 Q12HR NICOLE Donepezil HCl 5 mg 06/18/24 21:00 06/20/24 21:07 Donepezil Hcl 5 Mg Tablet PO 5 mg HS [facility], [facility]1983 Administration Enoxaparin Sodium 40 mg 06/20/24 09:00 06/20/24 11:49 Enoxaparin 40 Mg/0.4 Ml Syringe SUB-Q Not Given DAILY FOR[facility]LY [facility], [facility]1983 Fludrocortisone Acetate 0.1 mg 06/19/24 09:00 06/20/24 08:12 Fludrocortisone Acetate 0.1 Mg Tablet PO 0.1 mg DAILY [facility]1983 Administration Folic Acid 1 mg 06/20/24 09:00 06/20/24 08:12 Folic Acid 1 Mg Tablet PO 1 mg DAILY NICOLE Administration Gabapentin 100 mg 06/18/24 21:00 06/20/24 21:07 Gabapentin 100 Mg Capsule PO 100 mg HS [facility]1983 Administration Levothyroxine Sodium 100 mcg 06/19/24 06:30 06/21/24 06:15 Levothyroxine Sodium 100 Mcg Tablet PO 100 mcg DAILY@0630 [facility]1983 Administration Midodrine 5 mg 06/18/24 21:00 06/20/24 21:07 Midodrine Hcl 2.5 Mg Tablet PO 5 mg QID NICOLE Administration Morphine Sulfate 2 mg 06/19/24 19:59 Morphine Sulfate (*Crx) 2 Mg/Ml Inj IV PUSH Q1H PRN Pain Rated 7-10 Morphine Sulfate 2 mg 06/19/24 21:06 Morphine Sulfate (*Crx) 2 Mg/Ml Inj IV PUSH Q2H PRN Breakthrough Pain Rated 4-6 or NPO Naloxone HCl 0.1 mg 06/19/24 19:59 Naloxone Hcl 0.4 Mg/Ml Vial IV PUSH Q2M PRN Opiate Reversal Ondansetron HCl 4 mg 06/19/24 21:06 Ondansetron Inj 4 Mg/2 Ml Vial IV PUSH Q4H PRN Nausea And Vomiting Oxycodone HCl 2.5 mg 06/19/24 21:00 06/21/24 06:15 Oxycodone Hcl (*Crx) 2.5 Mg Tab Ir PO 2.5 mg Q4H NICOLE Administration Oxycodone HCl 2.5 mg 06/19/24 21:06 Oxycodone Hcl (*Crx) 2.5 Mg Tab Ir PO Q4H PRN Pain Rated 4-6 Pantoprazole Sodium 40 mg 06/19/24 09:00 06/20/24 21:07 Pantoprazole 40 Mg Tablet PO 40 mg Q12HR NICOLE Administration Polyethylene Glycol 17 gm 06/20/24 09:00 06/20/24 08:11 Polyethylene Glycol 3350 17 Gm Powd.Pack PO 17 gm QAM NICOLE Administration Potassium Chloride 10 meq 06/19/24 21:00 06/21/24 01:40 Potassium Chloride 10 Meq Er Tablet PO 10 meq QID NICOLE Administration Senna/Docusate Sodium 2 tab 06/20/24 09:00 06/20/24 21:08 Senna/Docusate Sodium Tablet PO 2 tab Q12HR NICOLE Administration Vitamin D 1,000 units 06/20/24 09:00 06/20/24 08:12 Cholecalciferol 1,000 Units Tablet PO 1,000 units DAILY NICOLE Administration Radiology Results: ITS Impressions Head CT 06/18/24 11:11 IMPRESSION: No acute intracranial findings. Chest X-Ray 06/18/24 11:17 IMPRESSION: Minimal opacification in the left lung base which may indicate atelectasis versus pneumonia. Follow-up advised. Cervical Spine CT 06/18/24 11:30 IMPRESSION: No acute osseous abnormality cervical spine. Multilevel degenerative disc disease. Hip CT 06/18/24 12:44 IMPRESSION: Left femoral neck fracture extending to the lesser trochanter Hip/Pelvis X-Ray 06/18/24 16:29 IMPRESSION: Redemonstration of a left femoral neck fracture, better visualized on the CT examination performed less than 4 hours earlier. Labs Labs: Laboratory Results - last 24 hr 06/21/24 05:15 WBC 4.3 L RBC 2.94 L Hgb 9.6 L Hct 29.3 L MCV 99.7 MCH 32.7 MCHC 32.8 RDW 12.5 Plt Count 107 L MPV 10.2 % Immature Plt Fraction 3.1 Sodium 137 Potassium 3.5 Chloride 104 Carbon Dioxide 25 Anion Gap 8 BUN 24 H Creatinine 0.98 Estim Creat Clear Calc 41 Estimated GFR 55 L Glucose 95 Calcium 8.3 L Total Bilirubin 0.8 AST 14 ALT 6 Alkaline Phosphatase 77 Total Protein 6.0 L Albumin 3.2 L
[2024-06-21] MEDS: FLUDROCORTISONE ACETATE 0.1 MG TABLET PO (08:33)
[2024-06-21] MEDS: CHOLECALCIFEROL 1,000 UNITS TABLET 1000 UNITS PO (08:33)
[2024-06-21] MEDS: CEFDINIR 300 MG CAPSULE PO (08:33)
[2024-06-21] MEDS: CARBIDOPA/LEVODOPA 25/100 MG TABLET 1 TABLET PO ×2 (08:33→12:39)
[2024-06-21] MEDS: SENNA/DOCUSATE SODIUM TABLET 2 TAB PO (08:33)
[2024-06-21] MEDS: PANTOPRAZOLE 40 MG TABLET PO (08:34)
[2024-06-21] MEDS: polyethylene glycoL 3350 17 GM POWD.PACK PO (08:34)
[2024-06-21] MEDS: FOLIC ACID 1 MG TABLET PO (08:34)
[2024-06-21] MEDS: MIDODRINE HCL 2.5 MG TABLET 5 MG PO ×2 (08:34→12:39)
--- NOTE | 2024-06-21 09:47 | PCOTNOTE ---
The patient treatment was not able to be completed. Patient eating breakfast still. Will plan to continue treatment per plan of care.
--- NOTE | 2024-06-21 13:19 | PM.DS ---
DS: Admitting Diagnosis Discharge Date 06/21 Admitting Diagnosis fall DS: Discharge Diagnosis Discharge Diagnosis (1) Fall: Code(s): W19.XXXA - Unspecified fall, initial encounter Status: Acute (2) Fracture of femoral neck, left: Code(s): S72.002A - Fracture of unspecified part of neck of left femur, initial encounter for closed fracture Status: Inactive (3) Heart failure with reduced ejection fraction: Code(s): I50.20 - Unspecified systolic (congestive) heart failure Status: Acute (4) Recurrent syncope: Code(s): R55 - Syncope and collapse Status: Acute (5) Orthostatic hypotension: Code(s): I95.1 - Orthostatic hypotension Status: Chronic (6) Hypothyroidism: Qualifiers: Hypothyroidism type: acquired Qualified Code(s): E03.9 - Hypothyroidism, unspecified Code(s): E03.9 - Hypothyroidism, unspecified Status: Chronic (7) Parkinson's disease: Code(s): G20 - Parkinson's disease Status: Acute DS: Summary Hospital Course Hospital Course: 79 year old female with past medical history of CKD, diastolic dysfunction, GERD, hypothyroidism, orthostatic hypotension, and Parkinson with deep brain stimulator presents to the hospital following a ground level fall resulting in left hip pain. Several issues were addressed: #fall # Fracture of femoral neck, left: History of orthostatic hypotension and syncope Patient unsure what caused her to fall or if she had a head strike or LOC Not anticoagulated she was on Telemetry Orthostatic vital signs when able to obtain Head CT: No acute intracranial findings Chest XR: Minimal opacification in the left lung base which may indicate atelectasis versus pneumonia Likely atelectasis as patient is afebrile without leukocytosis and remains asymptomatic. Incentive spirometer ordered. C spine CT: No acute osseous abnormality of the cervical spine however multiple degenerative disc disease noted Hip/pelvis XR: Redemonstration of a left femoral neck fracture Hip CT: Left femoral neck fracture extending to the lesser trochanter anticoag and pain mngment per ortho team - Hip/pelvis XR: Redemonstration of a left femoral neck fracture - Hip CT: Left femoral neck fracture extending to the lesser trochanter - Analgesics - PT/OT per ortho recommendations - Ortho consulted Cardiology consulted per ortho for surgical clearance- was seen and cleared per DR Preston S/p ORIF left intertrochanteric hip fracture with subtrochanteric extension with Arthrex ES trochanteric nail device on 06/[address] Almanza -pt had been working with PT/OT and doing well. Care coordination working with placement for rehab. Dr Almanza ordered Cefdinir. will send rx for pt to complete the course per his order. # Heart failure with reduced ejection fraction: I50.20 - Unspecified systolic (congestive) heart failure - Echo: LVEF 45-50% with moderate aortic regurgitation Seemingly unchanged from 12/06/20: EF est 50% - Monitor vital signs, I&Os, BUN/creatinine, daily weights, neuro status and patient is a fall risk - Monitor serum electrolytes, Keep serum Potassium>4 and serum Magnesium>2 and CBC I95.1 - Orthostatic hypotension Chronic Continue home medications: florinef 0.1 mg daily, patient has not received midodrine 5 mg QID since admission for NPO and elevated blood pressure Continue to monitor, BP elevation likely secondary to pain. will restart midodrine when discharged, but needs to be monitored closely. Notify provider if BP elevated, midodrine may need to be held Status at Discharge Functional status at discharge: uses cane/walker Overall status at discharge: patient is progressing back to baseline Time Spent with Patient Time attestation: Total time spent providing and/or coordinating discharge services: Time spent: Greater than 30 minutes Exam Narrative: General: female in no acute respiratory distress who is nontoxic appearing, up in the chair HEENT: Normocephalic. Atraumatic. Extraocular movement intact. Sclera clear and anicteric. No facial asymmetry. Chest: Lungs are clear to auscultation bilaterally. CV: Heart was regular rate and rhythm. Abd: Abdomen was soft. Nontender. Nondistended. Positive bowel sounds. Ext: No clubbing, cyanosis. DP pulses bilaterally. Edema to left hip. Dressing clean/dry/intact. Wiggling toes. Neuro: Patient is alert and oriented x3. Speech is clear. Dyskinesia has much improved, subtle tremors. Const: General: comfortable Resp: Effort & Inspection: normal respiratory effort DS: Data Data Completed and Pending Labs on day of discharge: Labs from last 24 hours 06/21/24 05:15 WBC 4.3 L RBC 2.94 L Hgb 9.6 L Hct 29.3 L MCV 99.7 MCH 32.7 MCHC 32.8 RDW 12.5 Plt Count 107 L MPV 10.2 % Immature Plt Fraction 3.1 Sodium 137 Potassium 3.5 Chloride 104 Carbon Dioxide 25 Anion Gap 8 BUN 24 H Creatinine 0.98 Estim Creat Clear Calc 41 Estimated GFR 55 L Glucose 95 Calcium 8.3 L Total Bilirubin 0.8 AST 14 ALT 6 Alkaline Phosphatase 77 Total Protein 6.0 L Albumin 3.2 L Discharge Plan Discharge Attending physician on discharge: Payam Cherry Consulting providers: Sneha Lilly; Ton Almanza Discharging Clinician: Radha Galvan Patient Disposition: SNF Activity: july shower Diet: heart healthy Patient Instructions: Pain Management (DC) Patient Language: Kinyarwanda Stand Alone Forms: General Discharge Information Discharge Medications: New cefdinir 300 mg Capsule 300 mg PO Q12HR Qty: 5 0RF Continued donepezil 5 mg tablet 5 mg PO HS carbidopa-levodopa 50-200 mg tablet extended release 1 tablet PO QHS midodrine 5 mg tablet 5 mg PO QID potassium chloride 10 mEq tablet extended release 10 meq PO QID omeprazole 40 mg capsule,delayed release(DR/EC) 40 mg PO BID levothyroxine 100 mcg tablet 100 mcg PO DAILY folic acid 1 mg tablet 1 mg PO DAILY gabapentin 100 mg capsule 100 mg PO HS carbidopa-levodopa 25-100 mg tablet 1 tablet PO QID fludrocortisone 0.1 mg tablet 0.1 mg PO DAILY cholecalciferol (vitamin D3) [Vitamin D3] 25 mcg (1,000 unit) capsule 25 mcg PO DAILY Date of admission: 06/18/24 13:20 Primary Care Provider: Michael Ford Admitting Provider: Jourdan Villarreal Attending physician on admission: Zhanna Mendoza Condition: Stable Quality VTE Prophylaxis VTE prophylaxis: mechanical ordered and pharmacologic ordered
[2024-06-21 14:43] VITALS: BP 143/68; PULSE 59; RESP 16; TEMP 37.2; O2SAT 97
[2024-06-21 18:46] LABS: Vitamin D 25 Hydroxy 19.4 ng/mL
== END 2024-06-21 17:27 | DRG 481 ==
LOC: ANHED 13:18 → ANH3MEDSUR 14:27 → ANH3MED 15:08
PROVIDERS: Orthopaedic Surgery; Physician Assistant Surgical; Student in an Organized Health Care Education/Training Program; Admitting Provider Internal Medicine; Emergency Provider Family Medicine; PCP Family Medicine; Visit Provider Nurse Practitioner
PROC: 0QS734Z Reposition Left Upper Femur with Internal Fixation Device, Percutaneous Approach (ICD-10-PCS; CPT 27245; principal; 2024-06-19 15:30)
DX: S72.142A Displaced intertrochanteric fracture of left femur, initial encounter for closed fracture (principal); I50.32 Chronic diastolic (congestive) heart failure; S72.002A Fracture of unspecified part of neck of left femur, initial encounter for closed fracture; I27.20 Pulmonary hypertension, unspecified; I95.1 Orthostatic hypotension; N18.9 Chronic kidney disease, unspecified; E87.6 Hypokalemia; E03.9 Hypothyroidism, unspecified; K58.9 Irritable bowel syndrome, unspecified; K21.9 Gastro-esophageal reflux disease without esophagitis; G20.A1 Parkinson's disease without dyskinesia, without mention of fluctuations; M81.0 Age-related osteoporosis without current pathological fracture; M19.90 Unspecified osteoarthritis, unspecified site; F41.9 Anxiety disorder, unspecified; F32.A Depression, unspecified; W19.XXXA Unspecified fall, initial encounter; Z96.82 Presence of neurostimulator; Z87.442 Personal history of urinary calculi
CPT/HCPCS: 36415; 70450; 71046; 72125; 73502; 73700; 80048; 80053; 82306; 83880; 84443; 85025; 85027; 85055; 85610; 85730; 86850; 86900; 86901; 93005; 96374; 96375; 97110; 97161; 97166; 97530; 97535; 99199; 99285; A9270; C1713; C8929; J0360; J0690; J1100; J1650; J2003; J2270; J2405; J2704; J3010; J3370; J7030; J7120; Q9957

== ENCOUNTER 2024-11-26 08:43 | Emergency (ER) | payer MEDICARE, OTHER, SELFPAY ==
--- OUTSIDE RECORDS SUMMARY | 2017-09-14 12:39 | XMS_ITS | Continuity of Care Document ---
Author Organization [employer] Address [address] [place] [address] Phone Care Team Providers Care Greenkeeper Name Role Phone Aletha Pao PERSON Unavailable Unavailable Procedures Procedure Date Therapeutic Exercise Neuromuscular Re-Ed Manual Therapy Therapeutic Exercise Manual Therapy Hot or Cold Pack Therapeutic Exercise Manual Therapy Hot or Cold Pack Therapeutic Exercise Manual Therapy Hot or Cold Pack Changing And Maintaining Body Position-C urrent Changing And Maintaining Body Position-G oal Therapeutic Exercise Manual Therapy Hot or Cold Pack Therapeutic Exercise Manual Therapy Hot or Cold Pack Therapeutic Exercise Manual Therapy Hot or Cold Pack Therapeutic Exercise Manual Therapy Hot or Cold Pack Therapeutic Exercise Manual Therapy Hot or Cold Pack Therapeutic Exercise Manual Therapy Hot or Cold Pack Changing And Maintaining Body Position-C urrent Changing And Maintaining Body Position-G oal Therapeutic Exercise Manual Therapy Hot or Cold Pack Therapeutic Exercise Manual Therapy Hot or Cold Pack Changing And Maintaining Body Position-C urrent Changing And Maintaining Body Position-G oal PT Evaluation Moderate Complexity Therapeutic Exercise Manual Therapy Hot or Cold Pack Changing And Maintaining Body Position-C urrent Changing And Maintaining Body Position-G oal PT Re-evaluation Therapeutic Exercise Manual Therapy Hot or Cold Pack Changing And Maintaining Body Position-C urrent Changing And Maintaining Body Position-G oal Therapeutic Exercise Neuromuscular Re-Ed Manual Therapy Hot or Cold Pack Therapeutic Exercise Neuromuscular Re-Ed Manual Therapy Hot or Cold Pack Changing And Maintaining Body Position-C urrent Changing And Maintaining Body Position-G oal Therapeutic Exercise Neuromuscular Re-Ed Manual Therapy Hot or Cold Pack Changing And Maintaining Body Position-C urrent Changing And Maintaining Body Position-G oal Therapeutic Exercise Manual Therapy Hot or Cold Pack Therapeutic Exercise Neuromuscular Re-Ed Manual Therapy Hot or Cold Pack Therapeutic Exercise Neuromuscular Re-Ed Manual Therapy Hot or Cold Pack Therapeutic Exercise Neuromuscular Re-Ed Manual Therapy Hot or Cold Pack Therapeutic Exercise Neuromuscular Re-Ed Manual Therapy Hot or Cold Pack Therapeutic Exercise Neuromuscular Re-Ed Manual Therapy Hot or Cold Pack Therapeutic Exercise Manual Therapy Hot or Cold Pack Therapeutic Exercise Neuromuscular Re-Ed Manual Therapy Hot or Cold Pack Therapeutic Exercise Neuromuscular Re-Ed Manual Therapy Hot or Cold Pack Changing And Maintaining Body Position-C urrent Changing And Maintaining Body Position-G oal Therapeutic Exercise Neuromuscular Re-Ed Manual Therapy Hot or Cold Pack Therapeutic Exercise Neuromuscular Re-Ed Manual Therapy Hot or Cold Pack Therapeutic Exercise Neuromuscular Re-Ed Manual Therapy Hot or Cold Pack Therapeutic Exercise Neuromuscular Re-Ed Manual Therapy Hot or Cold Pack PT Evaluation Moderate Complexity Therapeutic Exercise Manual Therapy Hot or Cold Pack Changing And Maintaining Body Position-C urrent Changing And Maintaining Body Position-G oal PT RE-EVALUATION THERAPEUTIC EXERCISES NEUROMUSCULAR RE-ED MANUAL THERAPY FUNC ACTIVITY Mobility: Walking And Moving Limitations -Curent Mobility: Walking And Moving Limitation- Goal Medications w/ Name Dose Freq NOT Route No Reason DOC THERAPEUTIC EXERCISES NEUROMUSCULAR RE-ED FUNC ACTIVITY Medications Name Dose Freq Route DOC Jun THERAPEUTIC EXERCISES NEUROMUSCULAR RE-ED FUNC ACTIVITY Medications Name Dose Freq Route DOC Jun THERAPEUTIC EXERCISES NEUROMUSCULAR RE-ED MANUAL THERAPY FUNC ACTIVITY Medications Name Dose Freq Route DOC Jun THERAPEUTIC EXERCISES NEUROMUSCULAR RE-ED MANUAL THERAPY FUNC ACTIVITY Medications Name Dose Freq Route DOC Jun THERAPEUTIC EXERCISES NEUROMUSCULAR RE-ED MANUAL THERAPY FUNC ACTIVITY Medications Name Dose Freq Route DOC Jun THERAPEUTIC EXERCISES NEUROMUSCULAR RE-ED MANUAL THERAPY FUNC ACTIVITY THERAPEUTIC EXERCISES NEUROMUSCULAR RE-ED MANUAL THERAPY Medications w/ Name Dose Freq NOT Route No Reason DOC PT EVALUATION THERAPEUTIC EXERCISES Mobility: Walking And Moving Limitations -Curent Mobility: Walking And Moving Limitation- Goal Medications Name Dose Freq Route DOC May Pain Assess Positive DOC 2014 BMI High F/U Plan DOC No Falls or 1 Fall w/o Injury Screened f or Fall Risk Functional Outcome Assessment documented in the pa PT RE-EVALUATION THERAPEUTIC EXERCISES MANUAL THERAPY FUNC ACTIVITY ULTRASOUND THERAPY HOT/COLD PACK Changing And Maintaining Body Position-C urrent Changing And Maintaining Body Position-G oal Medications Name Dose Freq Route DOC Nov THERAPEUTIC EXERCISES MANUAL THERAPY FUNC ACTIVITY ULTRASOUND THERAPY HOT/COLD PACK Medications Name Dose Freq Route DOC Nov THERAPEUTIC EXERCISES MANUAL THERAPY FUNC ACTIVITY ULTRASOUND THERAPY HOT/COLD PACK Medications Name Dose Freq Route DOC Nov THERAPEUTIC EXERCISES MANUAL THERAPY ULTRASOUND THERAPY HOT/COLD PACK Medications Name Dose Freq Route DOC Nov THERAPEUTIC EXERCISES MANUAL THERAPY ULTRASOUND THERAPY HOT/COLD PACK Medications Name Dose Freq Route DOC Oct THERAPEUTIC EXERCISES MANUAL THERAPY ULTRASOUND THERAPY HOT/COLD PACK Medications Name Dose Freq Route DOC Oct THERAPEUTIC EXERCISES MANUAL THERAPY ULTRASOUND THERAPY HOT/COLD PACK Medications Name Dose Freq Route DOC Oct THERAPEUTIC EXERCISES MANUAL THERAPY ULTRASOUND THERAPY HOT/COLD PACK Medications Name Dose Freq Route DOC Oct PT EVALUATION THERAPEUTIC EXERCISES MANUAL THERAPY ULTRASOUND THERAPY Changing And Maintaining Body Position-C urrent Changing And Maintaining Body Position-G oal Medications w/ Name Dose Freq NOT Route No Reason DOC Pain Assess Positive DOC 2013 BMI High F/U Plan DOC No Falls or 1 Fall w/o Injury Screened f or Fall Risk Functional Outcome Assessmen t documented, deficits identified, treatment plan es Advance Directives Directive Yes / No Effective Date File Name No Information Encounters Encounter Description Practice Location Reason(s) For Visit Diagnoses Date Provider Providers Copied on Encounter [facility] [facility] [place], [place], [id number], [place] tel:[phone] [place] No Information 8 Aletha Cedeno. [address] [facility], [address], [place], [address], [place]. tel:[phone] [facility], [place], [place], [id number], [place] tel:[phone] [place] Oth symptoms and signs involving the musculoskeletal systemCervicalg iaAbnormal postureUnspecif ied inflammatory spondylopathy, cervical regionParkinson 's disease 8 Midkiff Pao. [address] [place] [address], [address], [place], [place], [facility], [place]. tel:[phone] [facility], [place], [place], [address], [place] tel:[phone] [place] Ot symptoms and signs involving the musculoskeletal systemCervicalg iaAbnormal postureUnspecif ied inflammatory spondylopathy, cervical regionParkinson 's disease 8 Midkiff Pao. [address] [place] [address], [address], [place], [facility], [place]. tel:[phone] [facility] [address], [place], [address], [place] tel:[phone] [place] Oth symptoms and signs involving the musculoskeletal systemCervicalg iaAbnormal postureUnspecif ied inflammatory spondylopathy, cervical regionParkinson 's disease 8 Aletha Pao. [address] [place] [address], [address], [place], [address], [place]. tel:[phone] [facility] [address], [place], [place], [address], [place] tel:[phone] [place] Ot symptoms and signs involving the musculoskeletal systemCervicalg iaAbnormal postureUnspecif ied inflammatory spondylopathy, cervical regionParkinson 's disease 8 Midkiff Pao. [address] [place] [address], [address], [place], [address], [place]. tel:[phone] [facility], [place], [address], [place] tel:[phone] [place] CervicalgiaOth symptoms and signs involving the musculoskeletal systemAbnormal postureUnspecif ied inflammatory spondylopathy, cervical regionParkinson 's disease 8 Threlkeld Ratna. . [facility], [place], [place], [address], tel:[phone] [place] CervicalgiaOth symptoms and signs involving the musculoskeletal systemAbnormal postureUnspecif ied inflammatory spondylopathy, cervical regionParkinson 's disease 8- 8 Muehl Farheen. [address] [place] [address], [address], [place] [address], . tel:[phone] [facility] [address], [place], [place], [address], tel:[phone] [place] CervicalgiaOth symptoms and signs involving the musculoskeletal systemAbnormal postureUnspecif ied inflammatory spondylopathy, cervical regionParkinson 's disease 8 Midkiff Pao. [address] [place] [address], [address], [place], [facility], . tel:[phone] [facility] [address] [place] [place] [address], [place], [place], [address], tel:[phone] [place] CervicalgiaOth symptoms and signs involving the musculoskeletal systemAbnormal postureUnspecif ied inflammatory spondylopathy, cervical regionParkinson 's disease 8 Midkiff Pao. [address] [place] [address], [address], [place], [facility], . tel:[phone] [facility] [address] [address], [place], [place], [address], tel:[phone] [place] CervicalgiaOth symptoms and signs involving the musculoskeletal systemAbnormal postureUnspecif ied inflammatory spondylopathy, cervical regionParkinson 's disease 7 8 Midkiff Pao. [address] [place] [address], [address], [place] [address], . tel:[phone] [facility] [address] [facility] [address], [place], [place], [address], tel:[phone] [place] CervicalgiaOth symptoms and signs involving the musculoskeletal systemAbnormal postureUnspecif ied inflammatory spondylopathy, cervical regionParkinson 's disease 4-201 8 Midkiff Pao. [address] [place] [address], [address], [place], [address], [place]. tel:[phone] [facility] [address], [place], [place], [address], [place] tel:[phone] [place] CervicalgiaOth symptoms and signs involving the musculoskeletal systemAbnormal postureUnspecif ied inflammatory spondylopathy, cervical regionParkinson 's disease 8-201 8 Midkiff Pao. [address] [place] [address], [address], [place], [address], [place]. tel:[phone] [facility] [address], [place], [address], [place] tel:[phone] [place] CervicalgiaOth symptoms and signs involving the musculoskeletal systemAbnormal postureUnspecif ied inflammatory spondylopathy, cervical regionParkinson 's disease 6-201 8 Aletha Pao. [address] [place] [address], [address], [place], [address], [place]. tel:[phone] [facility] [address], [place], [place], [address], [place] tel:[phone] [place] CervicalgiaOth symptoms and signs involving the musculoskeletal systemAbnormal postureUnspecif ied inflammatory spondylopathy, cervical regionParkinson 's disease 3-201 8 Aletha Pao. [address] [place] [address], [address], [place], [address], [place]. tel:[phone] [facility] [address], [place], [address], [place] tel:[phone] [place] No Information 0 9-201 8 Midkiff Pao. [address] [place] [address], [address], [place], [address], [place]. tel:[phone] [facility], [place], [place], [address], [place] tel:[phone] [place] No Information 8 Midkiff Pao. [address] [place] [address], [address], [place], [address], [place]. tel:[phone], [place], [address], [place] tel:[phone] [place] No Information 2 8 Aletha Pao. [address] [place] [address], [address], [place], [address], [place]. tel:[phone] [facility] [address], [place], [address], [place] tel:[phone] [place] No Information 8 Aletha Pao. [address] [place] [address], [address], [place], [address], [place]. tel:[phone] [facility] [address], [place], [address], [place] tel:[phone] [place] No Information 8 Midkiff Pao. [address] [place] [address], [address], [place], [address], [place]. tel:[phone] [facility] [address], [place], [address], [place] tel:[phone] [place] No Information 8 Aletha Pao. [address] [place] [address], [address], [place], [address], [place]. tel:[phone] [facility] [address], [place], [address], [place] tel:[phone] [place] No Information 8 Midkiff Pao. [address] [place] [address], [address], [place], [address], [place]. tel:[phone] [facility] [address], [place], [address], [place] tel:[phone] [place] No Information 8 Midkiff Pao. [address] [place] [address], [address], [place], [address], [place]. tel:[phone] [address], [place], [place], [address], [place] tel:[phone] [place] No Information 0 8-201 8 Aletha Pao. [address] [place] [address], [address], [place], [address], [place]. tel:[phone] [address], [place], [place], [address], [place] tel:[phone] [place] No Information 0 5-201 8 Midkiff Pao. [address] [place] [address], [address], [place], [address], [place]. tel:[phone] [address], [place], [address], [place] tel:[phone] [place] No Information 0 2-201 8 Aletha Pao. [address] [place] [address], [address], [place], [address], [place]. tel:[phone] [address], [place], [address], [place] tel:[phone] [place] No Information Feb-2 1-201 7 Aletha Pao. [address] [place] [address], [address], [place], [address], [place]. tel:[phone] [address], [place], [address], [place] tel:[phone] [place] No Information Feb-1 8-201 7 Midkiff Pao. [address] [place] [address], [address], [place], [address], [place]. tel:[phone] [address], [place], [place], [address], [place] tel:[phone] [place] No Information Feb-1 5-201 7 Aletha Pao. [address] [place] [address], [address], [place], [address], [place]. tel:[phone] [facility] [address], [place], [address], tel:[phone] [place] No Information 1-201 7 Midkiff Pao. [address] [place] [address], [address], [place], [facility], . tel:[phone], [place], [address], tel:[phone] [place] No Information Feb-0 8-201 7 Aletha Pao. [address] [place] [address], [address], [place], [facility], . tel:[phone] [facility], [address] [place], [place] [address], [place], [address], tel:[phone] [place] No Information 0 4-201 7 Aletha Pao. [address] [place] [address], [address], [place], [facility], [place]. tel:[phone] [facility] [address], [place], [address], [place] tel:[phone] [place] CervicalgiaOth symptoms and signs involving the musculoskeletal systemAbnormal posturePostural kyphosis, thoracic regionSpondylos is w/o myelopathy or radiculopathy, cervical regionParkinson 's disease 3 0-201 7 Midkiff Pao. [address] [place] [address], [address], [place], [facility], [place]. tel:[phone] [facility] [address], [place], [address], [place] tel:[phone] [place] No Information 5-201 5 Eleazar Ella. [address] [place] [address], [address], [place], [facility], [place]. tel:[phone] [facility] [address], [place], [address], [place] tel:[phone] [place] No Information Apr-1 3-201 5 Eleazar Ella. [address] [place] [address], [address], [place], [address], [place]. tel:[phone], [place], [address], [place] tel:[phone] [place] No Information Apr-1 0-201 5 Eleazar Ella. [address] [place] [address], [address], [place], [address], [place]. tel:[phone], [place], [address], [place] tel:[phone] [place] No Information Apr-0 8-201 5 Eleazar Ella. [address] [place] [address], [address], [place], [address], [place]. tel:[phone], [place], [place], [address], [place] tel:[phone] [place] No Information Apr-0 6-201 5 Eleazar Ella. [address] [place] [address], [address], [place], [address], [place]. tel:[phone], [place], [place], [address], [place] tel:[phone] [place] No Information Apr-0 3-201 5 Eleazar Ella. [address] [place] [address], [address], [place], [address], [place]. tel:[phone], [place], [address], [place] tel:[phone] [place] No Information Apr-0 1-201 5 Eleazar Ella. [address] [place] [address], [address], [place], [address], [place]. tel:[phone], [place], [address], [place] tel:[phone] [place] No Information Mar-3 0-201 5 Eleazar Ella. [address] [place] [address], [address], [place], [address], [place]. tel:[phone] [address], [place], [address], [place] tel:[phone] [place] SciaticaPain in joint involving pelvic region and thighGENERALIZE D PAIN Mar-2 6-201 5 Eleazar Jaramillo. [address] [place] [address], [address], [place], [address], [place]. tel:[phone] [address], [place], [place], [address], [place] tel:[phone] [place] No Information Sep-0 8-201 4 Garcia Keshia. [address] [place] [address], [address], [place], [facility], [place]. tel:[phone] [address], [place], [address], [place] tel:[phone] [place] No Information Sep-0 5-201 4 Garcia Keshia. [address] [place] [address], [address], [place], [address], [place]. tel:[phone] [address], [place], [place], [address], [place] tel:[phone] [place] No Information Sep-0 4-201 4 Garcia Keshia. [address] [place] [address], [address], [place], [address], [place]. tel:[phone] [address], [place], [place], [address], [place] tel:[phone] [place] No Information Sep-0 2-201 4 Garcia Keshia. [address] [place] [address], [address], [place], [address], [place]. tel:[phone] [address], [place], [place], [address], [place] tel:[phone] [place] No Information Aug-2 9-201 4 Garcia Keshia. [address] [place] [address], [address], [place], [facility], . tel:[phone] [place] [address], [place], [address], tel:[phone] [place] No Information 4 Garcia Keshia. [address] [place] [address], [facility] [address], [place], [facility], . tel:[phone] [facility] [address] [place] [address] [address], [place], [place], [address], tel:[phone] [place] No Information 4 Garcia Keshia. [address] [place] [address], [facility] [address], [place], [facility], . tel:[phone], [id number], tel:[phone] [place] No Information 4 Garcia Keshia. [address] [place] [address], [address], [place], [facility], [place]. tel:[phone], [address], tel:[phone] [place] Pain in joint involving shoulder region 4 Garcia Keshia. [address] [place] [address], [facility] [address], [place], [facility], . tel:[phone] Family History Family Member Type Diagnosis Age At Onset No Information Payers Payer name Insurance type Covered green party ID Authorellena titigre(s) Medicare [place] [id number] [employer] CI [id number] Social History Type Description Quantity Date Captured Comments Sex Female Smoking Status No Information Chief Complaint And Reason For Visit No Information Reason For Referral Reason For Referral No Information History Of Present Illness Encounter Date Complaint History Of Prese nt Illness No Information Functional Status Date Functional Assessmen t No Information Instructions Date Instruction Additional Infor mation No Information Assessments Type Assessment Date No Information Patient Care Teams Name Effective Dates (start - stop) Status Members No Information
[2024-11-26] VITALS (17 sets, daily range): BP systolic 170–192; BP diastolic 86–108; PULSE 59–70; RESP 11–21; TEMP 36.4; O2SAT 95–98
--- NOTE | ~2024-11-26 | XR_ITS ---
EXAMINATION: XR chest 2V, 11/26/2024 9:53 CDT HISTORY: dizzy, htn COMPARISON: No comparisons available. Technique: 2 views obtained. Findings: The lungs are clear, no effusion. No pneumothorax. Heart is normal size. Mediastinal and hilar contours are within normal limits. Bony thorax no acute abnormality. Left pacemaker Impression: No acute cardiopulmonary abnormality. Reviewed, dictated and finalized at location A. Impression: No acute cardiopulmonary abnormality.
--- OUTSIDE RECORDS SUMMARY | 2024-11-26 08:46 | XMS_ITS | Encounter Summary ---
Author Organization [facility] Healthcare Address [address] [place] [address] Care Team Providers Care Perioperative Assistant Name Role Phone Jennifer Brownlee MD Primary Care Provider Fina Nava MD Primary Care Provider + [phone] Alok Santiago Primary Care Provider [phone] Brenda Lee MD Primary Care Provider [phone] Michael Ford MD Primary Care Provider [phone] Encounter Details Date Type Department Care Team (Late st Contact Info) Description 09/23/2017 Orders Only [facility] Health Information Management [address] [place] [id number] Scanning, Provider Social History Tobacco Use Types Packs/Day Years Used Date Smoking Tobacco: Never Smokeless Tobacco: Never Alcohol Use Standard Drinks/Week Comments No 0 (1 standard drink = 0.6 oz pur e alcohol) Comments Unknown Sex and Gender Information Value Date Recorded Sex Assigned at Not on file 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 Gender Identity Not on file Sexual Orientation Not on file documented as of this encounter Plan of Treatment Not on file documented as of this encounter Procedures Procedure Name Priority Date/Time Associated Diagnosis Comments SCAN - RADIOLOGY/IMAGING 09/23/2017 documented in this encounter Results * SCAN - RADIOLOGY/IMAGING (09/23/2017) Anatomical Region Laterality Modality Other us Provider Scanning Final Result documented in this encounter Visit Diagnoses Not on filedocumented in this encounter Additional Health Concerns Infection Onset Date Last Indicated Resolved Time COVID: Suspected 11/09/2021 11/09/2021 11/09/2021 5:01 PM CDT COVID19 11/09/2021 11/09/2021 11/19/2021 3:05 AM CDT COVID: Recovered Comment:Added based on recent COVID infection. 11/19/2021 11/19/2021 03/19/2022 3:[address] documented as of this encounter Care Teams Perioperative Assistant Relationship Specialty Start Date End Date Jennifer Brownlee MD PCP - General Family Practice 12/16/16 10/26/18 Fina Nava MD PCP - General Family Practice 10/27/18 08/05/20 Alok Santiago PA [address] [place] [address] PCP - General Physician Bale Sewer 08/06/20 02/24/21 Brenda Lee MD [address] [place] [address] PCP - General Family Medicine 02/25/21 12/22/21 Michael Ford MD [address] [place] [address] PCP - General Family Medicine 12/23/21 documented as of this encounter
--- OUTSIDE RECORDS SUMMARY | 2024-11-26 08:46 | XMS_ITS | Clinical Summary ---
Author Organization [facility] [address] Address [address] [place] [address] Care Team Providers Care Tumor Registrar Name Role Phone Michael Ford MD Primary Care Provider [phone] Allergies Active Allergy Reactions Criticality Noted Date Comments Hydrocodone Unknown 07/25/2021 Hallucinations Medications levothyroxine sodium (TIROSINT) 100 mcg capsule Take 1 capsule (100 mcg total) by mouth daily Active cholecalciferol (VITAMIN D-3) 1,000 unit Take 1 tablet/capsule (1,000 Units total) by mouth daily Active [...] mg total) by mouth nightly 3 Active POTASSIUM CHLORIDE ORAL Take 10 mEq by mouth 4 (four) times a day 4 Active midodrine (PROAMATINE) 5 mg tabletIndication s:Symptomatic Orthostatic Hypotension Take 1 tablet (5 mg total) by mouth 3 (three) times a day 270 tablet 3 4 Active Additional Information Patient taking differently:5 mg oral4 times daily, Indications: Symptomatic Orthostatic Hypotension, Reported on 07/11/2024 acyclovir (ZOVIRAX) 5 % ointment 4 Active [...] MOUTH DAILY. 180 tablet 1 5 Active cefdinir (OMNICEF) 300 mg capsule Take by mouth Active Active Problems Problem Noted Date Diagnosed Date COVID-19 11/21/2021 Assessment & Plan (11/21/2021 6:00 PM CDT): Having constipation since she quit her Miralax. Wants to use a suppository. Drink fluids. 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 Gender Identity Not on file Sexual Orientation Not on file Obstetrics History Last Filed Vital Signs Vital Sign Reading Time Taken Comments Blood Pressure 100/50 07/11/2024 2:25 PM CDT Pulse 63 07/11/2024 2:25 PM CDT Temperature 36.6 C (97.9 F) 09/03/2023 12:43 PM CDT Respiratory Rate 14 09/03/2023 12:43 PM CDT Oxygen Saturation 98% 07/11/2024 2:25 PM CDT Inhaled Oxygen Concentration - - Weight 66.7 kg (147 lb) 07/11/2024 2:25 PM CDT p er pt Height 160 cm (5' 3) 07/11/2024 2:25 PM CDT Body Mass Index 26.04 07/11/2024 2:25 PM CDT Plan of Treatment Health Maintenance Due Date Last Done Comments Depression Screening 1945 Fall Risk Assessment 1945 Hepatitis C Screening 1945 Osteoporosis Screening-Bone Density Scan 1945 DTaP/Tdap/Td Vaccine (1 - Tdap) 05/28/1958 Hepatitis B Screening 05/28/1965 Pneumococcal vaccine 65+ (1 of 1 - PCV) 05/28/1997 Zoster Vaccine (1 of 2) 05/28/1997 Well Visit 65+ 05/28/2012 Influenza Vaccine (#1) 2024 01/04/2020, 2016 Insurance [facility]ICARE [facility] MEDICARE FOR LIFE MEDICARE FOR LIFE Care Teams Tumor Registrar Relationship Specialty Start Date End Date Michael Ford MD PCP - General Family Medicine 12/23/21
--- OUTSIDE RECORDS SUMMARY | 2024-11-26 08:46 | XMS_ITS | Encounter Summary ---
Author Organization [facility] Healthcare Address [address] [place] [address] Care Team Providers Care Clergy Member Name Role Phone Michael Ford MD Primary Care Provider [phone] Encounter Details Date Type Department Care Team (Late st Contact Info) Description 06/19/2024 Orders Only [facility] [place] Information Management [address] [place] [id number] Scanning, Provider Social History Tobacco Use Types Packs/Day Years Used Date Smoking Tobacco: Never Smokeless Tobacco: Never Alcohol Use Standard Drinks/Week Comments No 0 (1 standard drink = 0.6 oz pur e alcohol) Comments No Sex and Gender Information Value Date Recorded Sex Assigned at Not on file 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 Gender Identity Not on file Sexual Orientation Not on file documented as of this encounter Plan of Treatment Not on file documented as of this encounter Procedures Procedure Name Priority Date/Time Associated Diagnosis Comments CARDIOLOGY DOCUMENT SCAN 06/19/2024 documented in this encounter Results * Cardiology Document Scan (06/19/2024) Anatomical Region Laterality Modality Other us Provider Scanning CV CARDIAC SERVICES PROCEDURES Final Result documented in this encounter Visit Diagnoses Not on filedocumented in this encounter Care Teams Clergy Member Relationship Specialty Start Date End Date Michael Ford MD PCP - General Family Medicine 12/23/21 documented as of this encounter
--- OUTSIDE RECORDS SUMMARY | 2024-11-26 08:46 | XMS_ITS | Clinical Summary ---
Author Organization [facility] Address [address] [place] [address] Care Team Providers Care Litigation Examiner Name Role Phone Michael Ford MD Primary Care Provider [phone] Source Comments [facility],non-owned Affiliates and Associated Physician Practices is amultiple site organization consisting of ambulatory clinics and hospital sitesin [place], [place], [place] and [place]. This disclosure is being madepursuant to the Care Everywhere program and may not contain all information available regarding this patient. Last updated 17.[facility] Allergies Active Allergy Reactions Criticality Noted Date Comments Hydrocodone Other 07/25/2021 Hallucinations Medications * This document contains information received from the source organization and may not represent a complete record from that organization. * Be aware that medications may not be up to date on this document. Alwaysverify current medications with the patient. 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),Parkinson's disease (HCC) TAKE 1 TABLET DAILY 90 tablet 3 07/08/19 22 Active Additional Information Patient taking differently: 1 mg Oral DAILY, Reported on 11/22/2024 B-D 3CC LUER-JESSICA SYR 25GX1 25G X 1 3 ML MISC USE DIRECTED MONTHLY 12/11/19 Active potassium chloride ER 10 MEQ tablet Take 1 (one) tablet by mouth 2 times daily 04/16/19 24 Active carbidopa-levodop a (Sinemet) 25-100 MG tabletIndications :Parkinson's disease with dyskinesia and fluctuating manifestations (HCC) Take 1 (one) tablet by mouth 3 times daily At 7:30 AM and 12:30 PM and 5:30 PM 270 tablet 3 11/07/19 25 Active carbidopa-levodop a CR (Sinemet CR) 50-200 MG tabletIndications :Parkinson's disease with dyskinesia and fluctuating manifestations (HCC) Take 1 (one) tablet by mouth at bedtime 90 tablet 3 11/07/19 25 Active donepezil (Aricept) 5 MG tabletIndications :Parkinson's disease with dyskinesia and fluctuating manifestations (HCC) Take 1 (one) tablet by mouth at bedtime 90 tablet 3 11/07/19 25 Active Additional Information Patient not taking.Reason: Provider adjusted, Reported on 11/22/2024 fludrocortisone (Florinef) 0.1 MG tabletIndications :Orthostatic Hypotension Take 2 (two) tablets by mouth once daily Reasons: Blood Pressure Drop Upon Standing 180 tablet 3 11/07/19 25 Active gabapentin (Neurontin) 100 MG capsuleIndication s:Neuropathy Take 1 (one) capsule by mouth at bedtime 30 capsule 11 11/07/19 25 026 Active midodrine (Proamatine) 5 MG tabletIndications :Parkinson's disease with dyskinesia and fluctuating manifestations (HCC) Take 1 (one) tablet by mouth 3 times daily 270 tablet 3 11/07/19 25 Active prucalopride (Motegrity) 2 MG tabletIndications :Chronic Idiopathic Constipation,Park insons Induced Constipation. Failed numerous other agents Take 0.5 (one-half) tablet by mouth once daily Reasons: Chronic Constipation of Unknown Cause, Parkinsons Induced Constipation. Failed numerous other agents 15 tablet 5 11/23/19 25 026 Active nystatin (Nystop) 267407 UNIT/GM powder Apply to affected area 3 times daily as needed Active acetaminophen (Tylenol) 325 MG tablet Take 2 (two) tablets by mouth every 6 hours as needed for Fever or Pain Maximum allowable Acetaminophen amount = 4 Grams (4000 mg) / 24 hours. Active vibegron (Gemtesa) 75 MG tablet Take 1 (one) tablet by mouth once daily Active vitamin D3 (CHOLECALCIFEROL) 25 MCG (1000 UNITS) tablet Take 1 (one) tablet by mouth once daily 025 Discontin ued(List Clean-Up) ibuprofen (MOTRIN) 600 MG tablet Take 1 (one) tablet by mouth every 6 hours as needed for Pain 60 tablet 05/19/19 22 025 Discontin ued(List Clean-Up) polyethylene glycol 3350 (Miralax) 17 GM/SCOOP powder Take 17 (seventeen) g by mouth once daily 238 g 10/16/19 23 025 Discontin ued(Clini shandra Decision) donepezil (Aricept) 5 MG tablet Take 1 (one) tablet by mouth at bedtime 02/27/20 025 Discontin ued(Reord er) fludrocortisone (Florinef) 0.1 MG tabletIndications :Orthostatic Hypotension Take 2 (two) tablets by mouth once daily Reasons: Blood Pressure Drop Upon Standing 180 tablet 3 09/27/19 24 025 Discontin ued(Reord er) carbidopa-levodop a (Sinemet) 25-100 MG tabletIndications :Parkinson's disease with dyskinesia and fluctuating manifestations (HCC) Take 1 (one) tablet by mouth 3 times daily At 7:30 AM and 12:30 PM and 5:30 PM 270 tablet 3 11/08/19 24 025 Discontin ued(Tx Complete) carbidopa-levodop a CR (Sinemet CR) 50-200 MG tabletIndications :Parkinson's disease with dyskinesia and fluctuating manifestations (HCC) Take 1 (one) tablet by mouth at bedtime 90 tablet 3 11/08/19 24 025 Discontin ued(Dose Adjustmen t) midodrine (Proamatine) 5 MG tabletIndications :Parkinson's disease with dyskinesia and fluctuating manifestations (HCC) Take 1 (one) tablet by mouth 3 times daily 270 tablet 3 11/08/19 24 025 Discontin ued(Reord er) gabapentin (Neurontin) 100 MG capsuleIndication s:Neuropathy TAKE 1 CAPSULE BY MOUTH AT BEDTIME 30 capsule 11 03/28/19 25 025 Discontin ued(Reord er) prucalopride (Motegrity) 2 MG tabletIndications :Parkinsons Induced Constipation. Failed numerous other agents Take 0.5 (one-half) tablet by mouth once daily Reasons: Parkinsons Induced Constipation. 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 Overview (06/20/2020): Added automatically from request for surgery [id number] Orthostatic hypotension 12/16/2016 Overview (01/12/2020): Added automatically from request for surgery [id number] Parkinson's disease 11/27/2014 GERD (gastroesophageal reflux disease) 3 Encounters Date Type Department Care Team Description 11/22/2024 2:30 PM CDT Office Visit [facility] - GI [address] [place] [phone] Getachew Scott MD Gastroesophageal reflux disease without esophagitis (Primary Dx); Full incontinence of feces; Overflow diarrhea; Other constipation 11/22/2024 Travel 11/06/2024 2:00 PM CDT Office Visit [facility] - Neurology [address] [facility] [place] [address] Zak Mathews APRN-STELLA Parkinson's disease with dyskinesia and fluctuating manifestations (HCC) (Primary Dx); Neuropathy 11/06/2024 Travel 09/20/2024 Office Visit External [facility] [address], [address] [place] [address] Maryan Del Real, [facility] 09/13/2024 Office Visit External [facility] [address], [address] [place] [address] Maryan Del Real, [facility] 09/13/2024 Office Visit External [facility] [address], [facility] [address] [place] [address] Maryan Del Real, [facility] 09/01/2024 Office Visit External [facility] [address] [facility], [facility] [address] [place] [address] Maryan Del Real, [facility] from Last 3 Months Immunizations Immunization Administration Dates Next Due CovTechnorati primary monoval ent 12+ yr 0.3mL Purple [...] more drinks on one occasion? 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 Gender Identity Not on file Sexual Orientation Not on file Last Filed Vital Signs Vital Sign Reading Time Taken Comments Blood Pressure 100/58 11/22/2024 3:52 PM CDT Pulse 62 11/22/2024 3:04 PM CDT Temperature 36.3 C (97.4 F) 11/22/2024 3:04 PM CDT Respiratory Rate 16 09/28/2023 5:50 AM CDT Oxygen Saturation 97% 11/22/2024 3:04 PM CDT Inhaled Oxygen Concentration 21% 03/25/2020 3 :00 PM BEADING MACHINE OPERATOR Weight 68 kg (150 lb) 11/22/2024 3:04 PM CDT Height 160 cm (5' 3) 11/22/2024 3:04 PM CDT Body Mass Index 26.57 11/22/2024 3:04 PM CDT Plan of Treatment Upcoming Encounters Date Type Department Care Team (Late st Contact Info) Description 05/10/2025 2:00 PM BEADING MACHINE OPERATOR Office Visit [facility] - Neurology [address] [place] [address], [place] [phone] Zak Mathews APRN-STELLA [address] [place] [address] [place] [phone] 05/23/2025 1:00 PM CDT Office Visit [facility] - GI [address] [place] [address], [place] [phone] Getachew Scott MD [address] [place] [phone] Health Maintenance Due Date Last Done Comments BONE DENSITY TESTING 1945 MEDICARE AWV 12 MONTHS 1945 HEPATITIS C SCREENING 05/24/1965 DTAP/TDAP/TD VACCINES (1 - Tdap) 05/28/1966 PNEUMOCOCCAL VACCINE 50+ (1 of 1 - PCV) 05/28/1997 ZOSTER VACCINE (1 of 2) 05/28/1997 Respiratory Syncytial Virus (RSV) Vaccine Pt: or over 60 yrs (1 - 1-dose 75+ series) 05/28/2022 DEPRESSION SCREENING 03/15/2024 COVID-19 VACCINE (2024- season) 2024 09/07/2022, 05/02/2020, 04/11/2020 INFLUENZA VACCINE (#1) 2024 , 01/04/2020, 12/30/2019, Additional history exists HEPATITIS B VACCINE Aged Out No longe [...] A/C/Y/W VACCINE Aged Out No longer eligible based on patient's age to complete this topic Goals Goal Patient Goal Type Associated Problems Recent Progress Patient-Stated? Author Medication Management General On track( 025 2:55 PM CDT) Pelon Arriaga, RN Note: Expected end date: ongoing Interventions: Take all medications as prescribed Let your doctor know right away about any changes in your medications Make sure to request a refill of your medication at least one week prior to your last dose Medical Devices Implanted Type Area Director Manufacturing Engineering Device Identifier Shelf Expiration Date Model / Serial / Lot Slnt Dura Duraseal Pg Trilysine Amine 5 Implanted:Qty: 1 on 03/25/2020 by Jai Caballero MD at [facility] Integra [employer] Elana 05/12/[id number] / / [id number] Slnt Dura Duraseal Pg Trilysine Amine 5 Implanted:Qty: 1 on 03/25/2020 by Jai Caballero MD at [facility] Left: Brain Integra [employer] Elana 12/12/[id number] / / [id number] [employer] Infinity Dbs System Implanted:Qty: 1 on 03/25/2020 by Jai Caballero MD at [facility] Left: Brain [employer] 03/27/2021 6172 / [id number] / Marcelo Spnl 140mm 6.35mm Ti Str Implanted:Qty: 1 on 03/25/2020 by Jean Carlos Fierro MD at [facility] Left: Brain [employer] 06/19/2021 6010 / / [id number] [employer] Infinity Dbs System Implanted:Qty: 1 on 04/01/2020 by Shannon Valero MD at [facility] Left: Neck 06/01/2021 6371 / [id number] / Infinity 7 Implantable Pulse Generator Implanted:Qty: 1 on 04/01/2020 by Shannon Valero MD at [facility] Left: Chest Wall 05/30/2021 6662 / [id number] / [employer] Infinity Dbs System Implanted:Qty: 1 on 07/18/2021 by Jai Caballero MD at [facility] Right: Brain [employer] 10/31/2022 6372 / [id number] / Slnt Dura Duraseal Pg Trilysine Amine 5 Implanted:Qty: 1 on 07/18/2021 by Jai Caballero MD at [facility] Right: Brain Integra [employer] Elana 12/12/2022 [id number] / / [id number] Cranial [place] Hole Cover Implanted:Qty: 1 on 07/18/2021 by Jai Caballero MD at [facility] Right: Cranial [employer] 05/21/2023 6010 / / [id number] [employer] Infinity Dbs System Implanted:Qty: 1 on 07/18/2021 by Jai Caballero MD at [facility] Right: Brain [employer] 09/19/2022 6172 / / [id number] Insurance MEDICARE [facility] MEDICARE Advance Directives Documents on File Type Date Recorded Patient Tool And Cutter Grinder Expl anation Adv Directive/Living Will/POA 05/21/2021 11:36 [...] 8:57 AM 04/01/2020 8:57 AM Care Teams Litigation Examiner Relationship Specialty Start Date End Date Michael Ford MD [address] [address] PCP - General Family Medicine 10/05/21
--- OUTSIDE RECORDS SUMMARY | 2024-11-26 08:46 | XMS_ITS | Encounter Summary ---
Author Organization [facility] Address [address] [place] [address] Care Team Providers Care Furniture Assembler Name Role Phone Jennifer Brownlee MD Primary Care Provider Fina Nava MD Primary Care Provider + [phone] Alok Santiago Primary Care Provider [phone] Brenda Lee MD Primary Care Provider [phone] Michael Ford MD Primary Care Provider [phone] Encounter Details Date Type Department Care Team (Late st Contact Info) Description 09/02/2017 Orders Only [facility] Health Information Management [address] [place] [address] Scanning, Provider Social History Tobacco Use Types Packs/Day Years Used Date Smoking Tobacco: Never Smokeless Tobacco: Never Alcohol Use Standard Drinks/Week Comments No 0 (1 standard drink = 0.6 oz pur e alcohol) Comments Unknown Sex and Gender Information Value Date Recorded Sex Assigned at Not on file Legal Sex Female 5:40 AM 911 EMERGENCY SERVICES DISPATCHER Gender Identity Not on file Sexual Orientation Not on file documented as of this encounter Plan of Treatment Not on file documented as of this encounter Procedures Procedure Name Priority Date/Time Associated Diagnosis Comments SCAN - RADIOLOGY/IMAGING 09/02/2017 documented in this encounter Results * SCAN - RADIOLOGY/IMAGING (09/02/2017) Anatomical Region Laterality Modality Other us Provider [...] documented as of this encounter Care Teams Furniture Assembler Relationship Specialty Start Date End Date Jennifer Brownlee MD PCP - General Family Practice 12/16/16 10/26/18 Fina Nava MD PCP - General Family Practice 10/27/18 08/05/20 Alok Santiago PA [address] [place] [address] PCP - General Physician Medical Concierge 08/06/20 02/24/21 Brenda Lee MD [address] [place] [address] PCP - General Family Medicine 02/25/21 12/22/21 Michael Ford MD [address] [place] [address] PCP - General Family Medicine 12/23/21 documented as of this encounter
--- OUTSIDE RECORDS SUMMARY | 2024-11-26 08:46 | XMS_ITS | Encounter Summary ---
Author Organization [facility] Address [address] [facility] [place] [address] Care Team Providers Care Crm Manager Name Role Phone Fina Prather MD Primary Care Provider +- [phone] Brenda Lee MD Primary Care Provider [phone] Michael Ford MD Primary Care Provider + [phone] Fina Prather MD Primary Care Provider + [phone] Michael Ford MD Primary Care Provider [phone] Encounter Details Date Type Department Care Team (Late st Contact Info) Description 03/28/2020 Preop Outreach [facility] NEUROSURGERY [address] [place] [phone] Isaías Blevins MD [address] [place] [address] Social History Tobacco Use Types Packs/Day Years Used Date Smoking Tobacco: Never Smokeless Tobacco: Never Alcohol Use Standard Drinks/Week Comments Not Currently 0.2 (1 standard drink = 0.6 oz p ure alcohol) Comments Unknown Sex and Gender Information Value Date Recorded Sex Assigned at Not on file Legal Sex Female 6:27 AM FABRICATION DEPARTMENT SUPERVISOR Gender Identity Not on file Sexual Orientation Not on file COVID-19 Exposure Response Date Recorded In the last month, have you been in contact with someone who was confirmed or suspected to have Coronavirus / COVID-19? No / Unsure 03/21/2020 10:00 AM FABRICATION DEPARTMENT SUPERVISOR documented as of this encounter Plan of Treatment Upcoming Encounters Date Type Department Care Team (Late st Contact Info) Description 05/10/2025 2:00 PM FABRICATION DEPARTMENT SUPERVISOR Office Visit [facility] - Neurology [address] [place] [address], [place] [phone] Zak Mathews, FUSE MAKER-ELECTRICAL TESTER BATTERY [address] [place] [address] [place] [phone] 05/23/2025 1:00 PM CDT Office Visit [facility] - GI [address] [place] [address], [place] [phone] Getachew Scott MD [address] [place] [phone] documented as of this encounter Visit Diagnoses Not on filedocumented in this encounter Additional Health Concerns Infection Onset Date Last Indicated Resolved Time COVID-19 Under Investigation 03/28/2020 03/28/2020 03/28/2020 10:23 PM FABRICATION DEPARTMENT SUPERVISOR COVID-19 Under Investigation 10/05/2021 10/05/2021 10/05/2021 6:44 PM CDT documented as of this encounter Care Teams Crm Manager Relationship Specialty Start Date End Date Fina Prather MD PCP - General 12/01/19 05/16/21 Brenda Lee MD [address] [place] [address] PCP - General Family Medicine 05/17/21 05/26/21 Michael Ford MD [address] [phone] PCP - General Family Medicine 06/09/21 06/15/21 Fina Prather MD PCP - General 06/16/21 09/10/21 Michael Ford MD [address] [phone] PCP - General Family Medicine 10/05/21 documented as of this encounter
--- NOTE | 2024-11-26 09:18 | ECG_ITS ---
Test Date: 2024-11-26 09:24:00 Measurements Intervals Proctor Rate: 63 P: 71 NE: 128 QRS: -25 QRSD: 138 T: 60 QT: 428 QTc: 438 Interpretive Statements SINUS RHYTHM INTRAVENTRICULAR CONDUCTION DELAY [130+ ms QRS DURATION] LEFT VENTRICULAR HYPERTROPHY AND ST-T CHANGE [VOLTAGE CRITERIA PLUS ST/T ABNORMALITY] ABNORMAL ECG Electronically Signed On 11-26-2024 09:50:31 CDT by Burt Zambrano M.D.
[2024-11-26 09:34] LABS: Hematocrit 37.9 % (37.0-47.0); Hemoglobin 12.6 g/dL (12.0-15.0); Immature Granulocyte Percent A 0.3 % (0-0.5); Lymphocytes Absolute Auto 1.26 K/mm3 (0.9-3.2); Mean Corpuscular HGB Conc 33.2 g/dl (32-36); Mean Corpuscular Hemoglobin 33.6 pg (26-34); Mean Corpuscular Volume 101.1 fl (80-100); Nucleated Red Blood Cells Absolute Auto 0.000 K/mm3 (0.0-0.012); Nucleated Red Blood Cells Perc 0.0 % (0.0-0.2); Platelet Count Result 174 k/mm3 (150-375); Red Blood Count 3.75 M/mm3 (4.2-5.4); White Blood Count 4.0 K/mm3 (4.5-10.0)
[2024-11-26 09:50] LABS: Alanine Aminotransferase 6 U/L (6-35); Albumin Level 4.3 g/dL (3.5-5.1); Alkaline Phosphatase 124 U/L (38-126); Anion Gap 8 mmol/L (4-12); Aspartate Amino Transferase 18 U/L (14-36); Bilirubin,Total 0.8 mg/dL (0.2-1.3); Blood Urea Nitrogen 22 mg/dL (7-17); Calcium 9.2 mg/dL (8.4-10.2); Carbon Dioxide 24 mmol/L (22-30); Chloride 104 mmol/L (98-107); Estimated CRCL calculation 46 ml/min; Estimated Glomerular Filt Rate > 60; Glucose 98 mg/dL (65-110); Potassium 4.1 mmol/L (3.4-5.0); Sodium 136 mmol/L (137-145); Total Protein 7.1 g/dL (6.3-8.2)
--- OUTSIDE RECORDS SUMMARY | 2024-11-26 10:23 | XMS_ITS | Encounter Summary ---
Author Organization [facility] Address [address] [facility] [place] [address] Care Team Providers Care Curriculum Advisory Teacher Name Role Phone Fina Prather MD Primary Care Provider +- [phone] Brenda Lee MD Primary Care Provider [phone] Michael Ford MD Primary Care Provider + [phone] Fina Prather MD Primary Care Provider + [phone] Michael Ford MD Primary Care Provider [phone] Encounter Details Date Type Department Care Team (Late st Contact Info) Description 03/28/2020 Preop Outreach [facility] NEUROSURGERY [address] [place] [phone] Isaías Blevins MD [address] [place] [address] Social History Tobacco Use Types Packs/Day Years Used Date Smoking Tobacco: Never Smokeless Tobacco: Never Alcohol Use Standard Drinks/Week Comments Not Currently 0.2 (1 standard drink = 0.6 oz p ure alcohol) Comments Unknown Sex and Gender Information Value Date Recorded Sex Assigned at Not on file Legal Sex Female 6:27 AM SACK LIFTER Gender Identity Not on file Sexual Orientation Not on file COVID-19 Exposure Response Date Recorded In the last month, have you been in contact with someone who was confirmed or suspected to have Coronavirus / COVID-19? No / Unsure 03/21/2020 10:00 AM SACK LIFTER documented as of this encounter Plan of Treatment Upcoming Encounters Date Type Department Care Team (Late st Contact Info) Description 05/10/2025 2:00 PM SACK LIFTER Office Visit [facility] - Neurology [address] [place] [address], [place] [phone] Zak Mathews, UTILITY PERSON-FIRE FIGHTER [employer] [address] [place] [address] [place] [phone] 05/23/2025 1:00 PM CDT Office Visit [facility] - GI [address] [place] [address], [place] [phone] Getachew Scott MD [address] [place] [phone] documented as of this encounter Visit Diagnoses Not on filedocumented in this encounter Additional Health Concerns Infection Onset Date Last Indicated Resolved Time COVID-19 Under Investigation 03/28/2020 03/28/2020 03/28/2020 10:23 PM SACK LIFTER COVID-19 Under Investigation 10/05/2021 10/05/2021 10/05/2021 6:44 PM CDT documented as of this encounter Care Teams Curriculum Advisory Teacher Relationship Specialty Start Date End Date Fina Prather MD PCP - General 12/01/19 05/16/21 Brenda Lee MD [address] [place] [address] PCP - General Family Medicine 05/17/21 05/26/21 Michael Ford MD [address] [phone] PCP - General Family Medicine 06/09/21 06/15/21 Fina Prather MD PCP - General 06/16/21 09/10/21 Michael Ford MD [address] [phone] PCP - General Family Medicine 10/05/21 documented as of this encounter
--- OUTSIDE RECORDS SUMMARY | 2024-11-26 10:23 | XMS_ITS | Clinical Summary ---
Author Organization [facility] [address] Address [address] [place] [address] Care Team Providers Care Corporate Officer Name Role Phone Michael Ford MD Primary Care Provider [phone] Allergies Active Allergy Reactions Criticality Noted Date [...] (11/16/2018): Added automatically from request for surgery [id number] Assessment & Plan (11/21/2021 5:59 PM CDT): [...] on file Legal Sex Female 5:40 AM BUSINESS SUPERVISOR Gender Identity Not on file Sexual [...] (#1) 2024 01/04/2020, 2016 Insurance MEDICARE FOR [facility] MEDICARE FOR LIFE MEDICARE FOR LIFE Care Teams Corporate Officer Relationship Specialty Start Date End Date Michael Ford MD PCP - General Family Medicine 12/23/21
--- OUTSIDE RECORDS SUMMARY | 2024-11-26 10:23 | XMS_ITS | Encounter Summary ---
Author Organization [facility] Healthcare Address [address] [place] [address] Care Team Providers Care Ice Skating Instructor Name Role Phone Jennifer Brownlee MD Primary Care Provider Fina Nava MD Primary Care Provider + [phone] Alok Santiago Primary Care Provider [phone] Brenda Lee MD Primary Care Provider [phone] Michael Ford MD Primary Care Provider [phone] Encounter Details Date Type Department Care Team (Late st Contact Info) Description 09/23/2017 Orders Only [facility] Health Information Management [address] [place] [address] Scanning, Provider Social History Tobacco Use Types Packs/Day Years Used Date Smoking Tobacco: Never Smokeless Tobacco: Never Alcohol Use Standard Drinks/Week Comments No 0 (1 standard drink = 0.6 oz pur e alcohol) Comments Unknown Sex and Gender Information Value Date Recorded Sex Assigned at Not on file Legal Sex Female 5:40 AM GOVERNMENT MINISTER Gender Identity Not on file Sexual Orientation [...] documented as of this encounter Care Teams Ice Skating Instructor Relationship Specialty Start Date End Date Jennifer Brownlee MD PCP - General Family Practice 12/16/16 10/26/18 Fina Nava MD PCP - General Family Practice 10/27/18 08/05/20 Alok Santiago PA [address] [place] [address] PCP - General Physician Speech Correction Assistant 08/06/20 02/24/21 Brenda Lee MD [address] [place] [address] PCP - General Family Medicine 02/25/21 12/22/21 Michael Ford MD [address] [place] [address] PCP - General Family Medicine 12/23/21 documented as of this encounter
--- OUTSIDE RECORDS SUMMARY | 2024-11-26 10:23 | XMS_ITS | Clinical Summary ---
Author Organization [email or web address] Address [address] [place] [address] Care Team Providers Care Box Tender Name Role Phone Michael Ford MD Primary Care Provider [phone] Source Comments [email or web address],non-owned Affiliates and Associated Physician Practices is amultiple site organization consisting of ambulatory clinics and hospital sitesin [place], [place], [place] and [place]. This disclosure is being madepursuant to the Care Everywhere program and may not contain all information available regarding this patient. Last updated 17.[email or web address] Allergies Active Allergy Reactions Criticality Noted Date [...] 5 11/23/19 25 026 Active nystatin (Nystop) 167317 UNIT/GM powder Apply to affected area 3 [...] (06/20/2020): Added automatically from request for surgery [id number] Orthostatic hypotension 12/16/2016 Overview (01/12/2020): Added automatically from request for surgery [id number] Parkinson's disease 11/27/2014 GERD (gastroesophageal reflux disease) 3 Encounters Date Type Department Care Team Description 11/22/2024 2:30 PM CDT Office Visit [facility] - GI [address] [place] [phone] Getachew Scott MD Gastroesophageal reflux disease without esophagitis (Primary Dx); Full incontinence of feces; Overflow diarrhea; Other constipation 11/22/2024 Travel 11/06/2024 2:00 PM CDT Office Visit [facility] - Neurology [address] [place] [address] Zak Mathews APRN-STELLA Parkinson's disease with dyskinesia and fluctuating manifestations (HCC) (Primary Dx); Neuropathy 11/06/2024 Travel 09/20/2024 Office Visit External [facility] [address], [address] [place] [address] Maryan Del Real, [facility] 09/13/2024 Office Visit External [facility] [address], [address] [place] [address] Maryan Del Real, [facility] 09/13/2024 Office Visit External [facility] [address] [facility] [address] [place] [address] Maryan Del Real, [facility] 09/01/2024 Office Visit External [facility] [address] [facility] [address] [facility] [address] [place] [address] Maryan Del Real, [facility] from Last 3 Months Immunizations Immunization Administration Dates Next Due Covmention primary monoval ent 12+ yr 0.3mL Purple [...] on file Legal Sex Female 6:27 AM PROCESS PUMPER Gender Identity Not on file Sexual Orientation [...] Oxygen Concentration 21% 03/25/2020 3 :00 PM PROCESS PUMPER Weight 68 kg (150 lb) 11/22/2024 3:04 PM CDT Height 160 cm (5' 3) 11/22/2024 3:04 PM CDT Body Mass Index 26.57 11/22/2024 3:04 PM CDT Plan of Treatment Upcoming Encounters Date Type Department Care Team (Late st Contact Info) Description 05/10/2025 2:00 PM PROCESS PUMPER Office Visit [facility] - Neurology [address] [place] [address], [place] [phone] Zak Mathews APRN-STELLA [address] [place] [address] [place] [phone] 05/23/2025 1:00 PM CDT Office Visit [facility] - GI [address] [place] [address], [place] [phone] Getachew Scott MD [address] [place] [phone] Health Maintenance Due Date Last Done Comments [...] last dose Medical Devices Implanted Type Area Full Service Vending Driver Device Identifier Shelf Expiration Date Model / Serial / Lot Slnt Dura Duraseal Pg Trilysine Amine 5 Implanted:Qty: 1 on 03/25/2020 by Jai Caballero MD at [facility] Integra [employer] Elana 05/12/[id number] / / [id number] Slnt Dura Duraseal Pg Trilysine Amine 5 Implanted:Qty: 1 on 03/25/2020 by Jai Caballero MD at [facility] Left: Brain Integra [employer] Elana 12/12/[id number] / / [id number] [employer] Infinity Dbs System Implanted:Qty: 1 on 03/25/2020 by Jai Caballero MD at [facility] Left: Brain [employer] 03/27/2021 6172 / [id number] / Marcelo Spnl 140mm 6.35mm Ti Str Implanted:Qty: 1 on 03/25/2020 by Jean Carlos Fierro MD at [facility] Left: Brain [employer] 06/19/2021 6010 / / [id number] [employer] Infinity Dbs System Implanted:Qty: 1 on 04/01/2020 by Shannon Valero MD at [facility] Left: Neck 06/01/2021 6371 / [id number] / Infinity 7 Implantable Pulse Generator Implanted:Qty: 1 on 04/01/2020 by Shannon Valero MD at [facility] Left: Chest Wall 05/30/2021 6662 / [id number] / [employer] Infinity Dbs System Implanted:Qty: 1 on 07/18/2021 by Jai Caballero MD at [facility] Right: Brain [employer] 10/31/2022 6372 / [id number] / Slnt Dura Duraseal Pg Trilysine Amine 5 Implanted:Qty: 1 on 07/18/2021 by Jai Caballero MD at [facility] Right: Brain Integra [employer] Elana 12/12/2022 [id number] / / [id number] Cranial [place] Hole Cover Implanted:Qty: 1 on 07/18/2021 by Jai Caballero MD at [facility] Right: Cranial [employer] 05/21/2023 6010 / / [id number] [employer] Infinity Dbs System Implanted:Qty: 1 on 07/18/2021 by Jai Caballero MD at [facility] Right: Brain [employer] 09/19/2022 6172 / / [id number] Insurance MEDICARE [facility] Address: [facility] [address] [place] [address] MEDICARE Advance Directives Documents on File Type Date Recorded Patient Sail Finisher Machine Expl anation Adv Directive/Living Will/POA 05/21/2021 11:36 [...] 8:57 AM 04/01/2020 8:57 AM Care Teams Box Tender Relationship Specialty Start Date End Date Michael Ford MD [address] [address] PCP - General Family Medicine 10/05/21
--- OUTSIDE RECORDS SUMMARY | 2024-11-26 10:23 | XMS_ITS | Encounter Summary ---
Author Organization [facility] Healthcare Address [address] [place] [address] Care Team Providers Care Molybdenum Steamer Operator Name Role Phone Michael Ford MD Primary Care Provider [phone] Encounter Details Date Type Department Care Team (Late st Contact Info) Description 06/19/2024 Orders Only [facility] [place] Information Management [address] [place] [address] Scanning, Provider Social History Tobacco Use Types Packs/Day Years Used Date Smoking Tobacco: Never Smokeless Tobacco: Never Alcohol Use Standard Drinks/Week Comments No 0 (1 standard drink = 0.6 oz pur e alcohol) Comments No Sex and Gender Information Value Date Recorded Sex Assigned at Not on file Legal Sex Female 5:40 AM DOPE MIXER Gender Identity Not on file Sexual Orientation [...] on filedocumented in this encounter Care Teams Molybdenum Steamer Operator Relationship Specialty Start Date End Date Michael Fodr MD PCP - General Family Medicine 12/23/21 documented as of this encounter
--- OUTSIDE RECORDS SUMMARY | 2024-11-26 10:23 | XMS_ITS | Patient Health Record ---
Author Organization [facility] Urgent Care - So [facility] Address [address] [place] [address] Support Name Relationship Address Phone Nydia Barraza Emergency Contact [address] [place] [address] Karyna Kemp Guarantor Unknown [phone] Allergies No Known Allergies Reason For Referral No Information Medications Medication SIG (Take, Route, Frequency, Duration) Notes Start Date End Date Status Zofran Active MiraLax Active Vitamin D2 Active Requip Active midodrine Active Macrobid macrocrystals-monohydrate 100 mg 1 cap(s) orally Every 12 hours; Duration: 5 days Active Potassium Chlorate A ctive Synthroid Active Prilosec Active ProAmatine Active Linzess Active KlonoPIN Active Elavil Active folic acid Active Florinef Acetate Act tiffany Plan Of Treatment No Information Insurance Providers Payer Name Payer Address Payer Phone Subscriber Number Group Number Insured Name Patient Relationship to Insured Coverage Start Date Coverage End Date Medicare [address] [address] [place] [address] [id number] Karyna Kemp Self - patient is the insured Medical (General) History Medical History History ICD Code Parkinson's Disease Thyroid Disease Surgical History Surgery Date(Month/Year) Gallbladder Surgery Hysterectomy
--- OUTSIDE RECORDS SUMMARY | 2024-11-26 10:23 | XMS_ITS | Encounter Summary ---
Author Organization [facility] Healthcare Address [address] [place] [address] Care Team Providers Care Organizational Development Manager Name Role Phone Jennifer Brownlee MD Primary Care Provider Fina Nava MD Primary Care Provider + [phone] Alok Santiago Primary Care Provider [phone] Brenda Lee MD Primary Care Provider [phone] Michael Ford MD Primary Care Provider [phone] Encounter Details Date Type Department Care Team (Late st Contact Info) Description 09/02/2017 Orders Only [facility] Health Information Management [address] [place] [address] Scanning, Provider Social History Tobacco Use Types Packs/Day Years Used Date Smoking Tobacco: Never Smokeless Tobacco: Never Alcohol Use Standard Drinks/Week Comments No 0 (1 standard drink = 0.6 oz pur e alcohol) Comments Unknown Sex and Gender Information Value Date Recorded Sex Assigned at Not on file Legal 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 Female 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 Gender Identity Not on file Sexual Orientation [...] documented as of this encounter Care Teams Organizational Development Manager Relationship Specialty Start Date End Date Jennifer Brownlee MD PCP - General Family Practice 12/16/16 10/26/18 Fina Nava MD PCP - General Family Practice 10/27/18 08/05/20 Alok Santiago PA [address] [place] [address] PCP - General Physician Behavioral Health Case Manager 08/06/20 02/24/21 Brenda Lee MD [address] [place] [address] PCP - General Family Medicine 02/25/21 12/22/21 Michael Ford MD [address] [place] [address] PCP - General Family Medicine 12/23/21 documented as of this encounter
--- NOTE | 2024-11-26 10:52 | ED.GENADULT ---
HPI - General Adult General Chief complaint: Recheck/Abnormal Lab/Rx Stated complaint: htn Time Seen by Provider: 11/26/24 10:00 History of Present Illness HPI narrative: Patient is a 79-year-old female who presents ER due to elevated blood pressure readings at her care home. Blood pressure was in the 180s this morning. No chest pain or shortness of breath. No change in vision or headache. No exertional dyspnea. No leg swelling. Typically has low blood pressures and has to take midodrine as well as fludrocortisone to help with her low blood pressure. No fevers or chills or sweats. No additional concerns. Related Data Home Medications ?Medication ?Instructions ?Recorded ?Confirmed ?Last Taken ?Type carbidopa 25 mg-levodopa 100 mg 1 tablet PO QID 02/11/24 08/23/24 06/18/24 History tablet carbidopa ER 50 mg-levodopa 200 mg 1 tablet PO QHS 02/11/24 08/23/24 06/17/24 History tablet,extended release fludrocortisone 0.1 mg tablet 0.1 mg PO DAILY 02/11/24 08/23/24 06/18/24 History folic acid 1 mg tablet 1 mg PO DAILY 02/11/24 08/23/24 06/18/24 History gabapentin 100 mg capsule 100 mg PO HS 02/11/24 08/23/24 06/17/24 History midodrine 5 mg tablet 5 mg PO QID 02/11/24 08/23/24 06/18/24 14:30 History omeprazole 40 mg capsule,delayed 40 mg PO BID 02/11/24 08/23/24 06/18/24 History release mecobalamin (vitamin B12) 1,000 1,000 mcg PO DAILY 07/19/24 08/23/24 Unknown History mcg chewable tablet ergocalciferol (vitamin D2) 1,250 1,250 mcg PO WEEKLY 08/23/24 08/23/24 Unknown History mcg (50,000 unit) capsule (Vitamin D2) levothyroxine 100 mcg capsule 100 mcg PO DAILY 08/23/24 08/23/24 Unknown History potassium chloride 10 mEq 10 meq PO DAILY 08/23/24 08/23/24 Unknown History tablet,extended release Allergies Allergy/AdvReac Type Severity Reaction Status Date / Time hydrocodone AdvReac Severe psychosis Verified 11/26/24 08:44 Review of Systems Review of Systems: All systems reviewed & are unremarkable except as noted in HPI and below Constitutional: Constitutional: Reports no additional constitutional complaints Cardiovascular: Cardiovascular: Reports no additional cardiovascular complaints Respiratory: Respiratory: Reports no additional respiratory complaints Gastrointestinal: Gastrointestinal: Reports no additional gastrointestinal complaints Neurologic: Reports system reviewed and no additional complaints, except as documented [facility] Past Medical History Medical History Hypokalemia Pulmonary hypertension RVSP of 35-40 Chronic kidney disease Baseline creatinine 0.9-1 Congenital malrotation of intestine Urinary, incontinence, stress female Diastolic dysfunction Echo 11/2020: LV systolic function lower limit of normal, diastolic dysfunction grade 1, EF 50%, mild enlargement of left ventricular cavity, moderate concentric left ventricular hypertrophy, impaired diastolic relaxation grade 1 with an EF visually estimated 50%, [id number] aortic valve regurgitation, [id number]-[id number] tricuspid regurgitation Kidney stones Parkinson's disease Irritable bowel syndrome Gastroesophageal reflux disease (Unknown) Duplicated urinary collecting system Orthostatic hypotension Hypothyroidism Constipation Anemia Anxiety Depression Osteoporosis Arthritis Surgical History Surgical History Status post deep brain stimulator placement History of lithotripsy History of sacrocolpopexy For symptomatic vaginal vault prolapse. History of bunionectomy of both great toes History of rectal polypectomy History of local excision of skin lesion History of hysterectomy History of bladder surgery Mid urethral sling. History of cholecystectomy History of appendectomy Family History Family History Mother Carcinoma of colon Father Family history of coronary artery disease Sibling Family history of malignant neoplasm of breast Pulmonary embolism Sibling Acute myocardial infarction Pulmonary embolism Other Breast cancer Social History Social History Social History: The patient is as of 2007 and lives in independent living at [facility]. She has 3 daughters. Lifelong nonsmoker. No alcohol or illicit substance abuse. Her daughter Indigo Gallego is her healthcare power of attorney recruiter. Code status: Full code. Smoking status: Never smoker Alcohol intake: never Substance use: never Substance use type: does not use Current Housing: Decline to Answer Concerned About Future Housing: Decline to Answer Difficulty Paying Gas/Electric Bills: Decline to Answer Difficulty Paying for Meds: Decline to Answer Currently Unemployed: Decline to Answer Education: Decline to Answer Difficulty w/ Childcare or Family Care: Decline to Answer Living arrangements: shelter [facility] Occupation/Education: retired Spiritual care concerns: No Exam Narrative: GENERAL: Well-appearing, well-nourished, and in no acute distress. HEAD: Normocephalic, atraumatic. EYES: PERRL and EOMI. ENT: Mucous membranes moist. CHEST: Clear to auscultation. No respiratory distress. HEART: Regular rate and rhythm. Normal peripheral pulses. ABDOMEN: Soft, nontender, nondistended. EXTREMITIES: Normal range of motion. No edema. NEURO: Alert and oriented x3. PSYCH: Normal mood and affect. Course Course Emergency Course: Blood pressure 174/67 mm Hg. Patient is asymptomatic. Chest x-ray normal. CMP and CBC unremarkable. Vital Signs Vital signs: Vital Signs Temperature 97.5 F L 11/26/24 08:49 Pulse Rate 63 11/26/24 08:49 Respiratory Rate 21 H 11/26/24 08:49 Blood Pressure 192/86 H 11/26/24 08:49 Pulse Oximetry 97 11/26/24 08:49 Oxygen Delivery Room Air 11/26/24 08:49 Temperature 97.5 F L 11/26/24 08:49 Pulse Rate 64 11/26/24 11:01 Respiratory Rate 15 11/26/24 11:01 Blood Pressure 170/90 H 11/26/24 11:01 Pulse Oximetry 95 11/26/24 11:01 Oxygen Delivery Room Air 11/26/24 08:49 Medical Decision Making Vital Signs Vital Signs: Vital Signs Temperature 97.5 F L 11/26/24 08:49 Pulse Rate 63 11/26/24 08:49 Respiratory Rate 21 H 11/26/24 08:49 Blood Pressure 192/86 H 11/26/24 08:49 Pulse Oximetry 97 11/26/24 08:49 Oxygen Delivery Room Air 11/26/24 08:49 Temperature 97.5 F L 11/26/24 08:49 Pulse Rate 64 11/26/24 11:01 Respiratory Rate 15 11/26/24 11:01 Blood Pressure 170/90 H 11/26/24 11:01 Pulse Oximetry 95 11/26/24 11:01 Oxygen Delivery Room Air 11/26/24 08:49 Lab Data 11/26/24 09:28 11/26/24 09:28 Labs: Lab Results 11/26/24 Range/Units 09:28 WBC 4.0 L (4.5-10.0) K/mm3 RBC 3.75 L (4.2-5.4) M/mm3 Hgb 12.6 D (12.0-15.0) g/dL Hct 37.9 (37.0-47.0) % MCV 101.1 H (80-100) fl MCH 33.6 (26-34) pg MCHC 33.2 (32-36) g/dl RDW 12.7 (11.5-14.5) % Plt Count 174 D (150-375) k/mm3 MPV 9.4 (7.4-10.4) fl Immature Gran % (Auto) 0.3 (0-0.5) % Neut % (Auto) 60.6 (45.5-73.1) % Lymph % (Auto) 31.5 (18.3-44.2) % Tift % (Auto) 6.0 (2.6-8.5) % Eos % (Auto) 0.8 (0-4.4) % Baso % (Auto) 0.8 (0.2-1.2) % Lymph # (Auto) 1.26 (0.9-3.2) K/mm3 Tift # (Auto) 0.2 (0.1-0.6) K/mm3 Eos # (Auto) 0.0 (0-0.3) K/mm3 Baso # (Auto) 0.0 (0.0-0.1) K/mm3 Abs Immat Gran (auto) 0.01 (0.00-0.031) K/mm3 Absolute Neuts (auto) 2.4 (1.3-6.7) K/mm3 Absolute Nucleated RBC 0.000 (0.0-0.012) K/mm3 Nucleated RBC % 0.0 (0.0-0.2) % Sodium 136 L (137-145) mmol/L Potassium 4.1 (3.4-5.0) mmol/L Chloride 104 (98-107) mmol/L Carbon Dioxide 24 (22-30) mmol/L Anion Gap 8 (4-12) mmol/L BUN 22 H (7-17) mg/dL Creatinine 0.84 (0.7-1.0) mg/dL Estim Creat Clear Calc 46 ml/min Estimated GFR > 60 (59 - ) Glucose 98 (65-110) mg/dL Calcium 9.2 (8.4-10.2) mg/dL Total Bilirubin 0.8 (0.2-1.3) mg/dL AST 18 (14-36) U/L ALT 6 (6-35) U/L Alkaline Phosphatase 124 (38-126) U/L Total Protein 7.1 (6.3-8.2) g/dL Albumin 4.3 (3.5-5.1) g/dL Imaging Data Radiologist's impression: ITS Impressions Chest X-Ray 11/26/24 10:19 Impression: No acute cardiopulmonary abnormality. ECG Data EKG #1: ECG completion date: 11/26/24 ECG completion time: 09:24 EKG Interpretation: normal rate (63), sinus rhythm, non-specific ST changes and widened QRS Discharge Plan Discharge Clinical Impression: Elevated blood pressure reading Patient Disposition: Home Condition: Stable Instructions: Hypertension (ED) Additional Instructions: Hold your midodrine since her blood pressure is elevated in the 170s/180s. You may still take midodrine if you have low blood pressure. Return the ER if you have chest pain with shortness of breath, you lose consciousness, or have other concerns. Continue to monitor your blood pressure 1 to 2 times a day and follow-up with your primary care doctor. Patient Language: Bulgarian Prescriptions: No Action carbidopa-levodopa 50-200 mg tablet extended release 1 tablet PO QHS midodrine 5 mg tablet 5 mg PO QID omeprazole 40 mg capsule,delayed release(DR/EC) 40 mg PO BID folic acid 1 mg tablet 1 mg PO DAILY gabapentin 100 mg capsule 100 mg PO HS carbidopa-levodopa 25-100 mg tablet 1 tablet PO QID fludrocortisone 0.1 mg tablet 0.1 mg PO DAILY potassium chloride 10 mEq tablet extended release 10 meq PO DAILY mecobalamin (vitamin B12) 1,000 mcg tablet,chewable 1,000 mcg PO DAILY levothyroxine 100 mcg capsule 100 mcg PO DAILY ergocalciferol (vitamin D2) [Vitamin D2] 1,250 mcg (50,000 unit) capsule 1,250 mcg PO WEEKLY acetaminophen 325 mg Tablet 650 mg PO Q6HR Qty: 60 0RF Follow-up/Referrals: Michael Ford MD [Primary Care Provider, Family Practice] - 1 Week
== END 2024-11-26 11:56 | disposition home or self-care (01) ==
PROVIDERS: Student in an Organized Health Care Education/Training Program; Emergency Provider Emergency Medicine; PCP Family Medicine
DX: R03.0 Elevated blood-pressure reading, without diagnosis of hypertension (principal); I27.20 Pulmonary hypertension, unspecified; N18.9 Chronic kidney disease, unspecified; Z87.442 Personal history of urinary calculi; G20.A1 Parkinson's disease without dyskinesia, without mention of fluctuations; K21.9 Gastro-esophageal reflux disease without esophagitis; E03.9 Hypothyroidism, unspecified; D64.9 Anemia, unspecified; F41.9 Anxiety disorder, unspecified; F32.A Depression, unspecified; M19.90 Unspecified osteoarthritis, unspecified site
CPT/HCPCS: 36415; 71046; 80053; 85025; 93005; 99284